=== PATIENT | male | born 1945 | race Caucasian/White ===

== ENCOUNTER 2018-07-09 21:32 | Observation (INO) | payer MEDICARE ==
--- NOTE | 2018-07-09 22:32 | ED ---
General Adult HPI - General Chief complaint: Abdominal Pain Stated complaint: Clogged NG2 Time Seen by Provider: 07/09/18 21:35 Source: patient, EMS Mode of arrival: EMS Limitations: physical limitation - History of Present Illness Initial comments: This patient is a 73-year-old man who was sent here from the longterm because his Dobbhoff tube would not pass medication tonight. Patient states that the tube has been present for number of months and he is not entirely certain when it stopped passing medications. Patient denies any other complain ts related to this. -: unknown Severity scale (1-10): 0 Improves with: none Worsens with: none Associated Symptoms: denies other symptoms Treatments Prior to Arrival: none - Related Data Home Medications Medication Instructions Recorded Confirmed Naproxen Sodium [Aleve] 220 mg PO Q12HR PRN 12/25/13 12/25/13 Previous Rx's Medication Instructions Recorded Cyclobenzaprine [Flexeril] 10 mg PO TID #10 tab 12/26/13 predniSONE 50 mg PO DAILY #5 tab 12/26/13 Allergies Allergy/AdvReac Type Severity Reaction Status Date / Time No Known Allergies Allergy Verified 12/25/13 22:55 Review of Systems ROS Statement: Those systems with pertinent positive or pertinent negative responses have been documented in the HPI. ROS Other: All systems not noted in ROS Statement are negative. Respiratory: Denies: cough, dyspnea Cardiovascular: Denies: chest pain Gastrointestinal: Denies: abdominal pain, vomiting, diarrhea Past Medical History Past Medical History: No Reported History History of Any Multi-Drug Resistant Organisms: None Reported Past Surgical History: No Surgical Hx Reported Past Psychological History: No Psychological Hx Reported Smoking Status: Current every day smoker Past Alcohol Use History: Occasional Past Drug Use History: None Reported General Exam Limitations: physical limitation General appearance: alert, in no apparent distress Head exam: Present: atraumatic, normocephalic ENT exam: Present: normal oropharynx, other (There is a Dobbhoff tube in the right naris with bridle present) Respiratory exam: Present: normal lung sounds bilaterally Cardiovascular Exam: Present: regular rate, normal rhythm, normal heart sounds GI/Abdominal exam: Present: soft. Absent: tenderness Neurological exam: Present: alert Skin exam: Present: warm, dry, intact, normal color. Absent: rash Course Vital Signs 07/09/18 07/09/18 21:37 23:29 Temperature 97.5 F L Pulse Rate 100 91 Respiratory 14 16 Rate Blood Pressure 152/100 167/100 O2 Sat by Pulse 95 97 Oximetry Disposition Clinical Impression: Feeding tube obstruction Disposition: ADMITTED IP TO THIS HOSP Condition: Fair Is patient prescribed a controlled substance at d/c from ED?: No Referrals: Tigre Reed DO [Primary Care Provider] - 1-2 days
[2018-07-10] MEDS ORDERED: NALOXONE 0.4 MG/ML 1 ML VIAL IV PRN (01:08)
[2018-07-10] MEDS ORDERED: LABETALOL SYRINGE 5 MG/ML IVP STA (01:59)
[2018-07-10] MEDS: SODIUM CHLORIDE 0.9% 1,000 ML IV SCH ×2 (02:35→15:53)
[2018-07-10] MEDS: HEPARIN SODIUM,PORCINE 5,000 UNIT/ML 1 ML VIAL SQ SCH ×2 (08:29→15:53)
[2018-07-10 11:06] VITALS: BMI 20.5
[2018-07-10] MEDS ORDERED: LIDOCAINE 1% INJ 10MG/ML (20 ML MDV) ONE (11:14)
[2018-07-10] MEDS ORDERED: PROPOFOL 10 MG/ML 20 ML VIAL IV ONE (11:14)
[2018-07-10] MEDS ORDERED: IV FLUID CONTINUATION 1,000 ML IV ONE (11:18)
--- NOTE | 2018-07-10 11:19 | P.GSHP ---
History of Present Illness H&P Date: 07/10/18 Chief Complaint: Malnutrition This a 73-year-old male who's had issues with dysphagia and malnutrition. Patient's previous aortic stent graft. He's had a Dobbhoff tube feed for several months. His Dobbhoff has become occluded. He is admitted for gastrostomy tube placement. Past Medical History Past Medical History: COPD, GERD/Reflux, Hyperlipidemia, Hypertension Additional Past Medical History / Comment(s): Neuromuscular dysfunction of bladder, iron deficiency anemia, neurogenic bladder, pressure ulcers, dissection of thoracic aorta History of Any Multi-Drug Resistant Organisms: None Reported Past Surgical History: No Surgical Hx Reported Additional Past Surgical History / Comment(s): May 2018 thoracic aorta repair at [facility] Past Anesthesia/Blood Transfusion Reactions: No Reported Reaction Past Psychological History: No Psychological Hx Reported Smoking Status: Former smoker Past Alcohol Use History: Occasional Past Drug Use History: None Reported Medications and Allergies Home Medications Medication Instructions Recorded Confirmed Type Acetaminophen [Tylenol 8 Hour] 650 mg NG-TUBE Q6HR PRN MDD 3000mg 07/10/18 07/10/18 History Ascorbic Acid [Vitamin C] 500 mg NG-TUBE DAILY 07/10/18 07/10/18 History Aspirin 81 mg NG-TUBE DAILY 07/10/18 07/10/18 History Cholestyramine (with Sugar) 4 gm NG-TUBE DAILY 07/10/18 07/10/18 History [Cholestyramine Packet] Esomeprazole Magnesium 20 mg NG-TUBE DAILY 07/10/18 07/10/18 History Ferrous Sulfate Oral Elixir 330 mg NG-TUBE DAILY 07/10/18 07/10/18 History [Feosol Liquid] INSULIN LISPRO (humaLOG) [humaLOG] See Protocol SQ ACHS 07/10/18 07/10/18 History Ipratropium/Albuterol Sulfate 1 puff INHALATION RT-TID 07/10/18 07/10/18 History [Combivent Respimat Inhaler] Loperamide HCl [Imodium] 4 mg NG-TUBE Q12HR 07/10/18 07/10/18 History Midodrine HCl [ProAmatine] 10 mg NG-TUBE Q12HR 07/10/18 07/10/18 History Multivitamins, Thera [Multivitamin 1 tab PO DAILY 07/10/18 07/10/18 History (formulary)] Warfarin Sodium 10 mg NG-TUBE SUMOTUSA 07/10/18 07/10/18 History Warfarin Sodium 12.5 mg NG-TUBE WETHFR 07/10/18 07/10/18 History Allergies Allergy/AdvReac Type Severity Reaction Status Date / Time No Known Allergies Allergy Verified 07/10/18 09:22 Surgical - Exam Vital Signs Temp Pulse Resp BP Pulse Ox 97.5 F L 100 14 152/100 95 07/09/18 21:37 07/09/18 21:37 07/09/18 21:37 07/09/18 21:37 07/09/18 21:37 - General well developed, no distress, cachectic, chronically ill - Eyes PERRL - ENT normal pinna - Neck no masses - Respiratory normal expansion - Cardiovascular Rhythm: regular - Abdomen Abdomen: soft, non tender Assessment and Plan Assessment: Protein calorie malnutrition. We'll place PEG tube today.
[2018-07-11] MEDS: HEPARIN SODIUM,PORCINE 5,000 UNIT/ML 1 ML VIAL SQ SCH ×3 (00:14→17:06)
--- NOTE | 2018-07-11 01:46 | CONS ---
CONSULTATION DATE OF CONSULTATION: July 10, 2018. REASON FOR CONSULTATION: Medical management requested by Dr. Recio. CONSULTATION: This is a 73-year-old patient of Dr. Reed. Most of the history is obtained by the at the bedside. The patient was at [facility] where he had a aortic replacement done and since then the patient has got a Dobhoff tube. The patient has been at rehab and the COUNT INCLUDES THE [facility]. The patient's Dobhoff stopped functioning and patient admitted by Dr. Recio for replacement of the same. Earlier today, the patient did get the Dobhoff tube replaced. I did see the patient earlier. According to the , the patient is able to do some therapy, though weak and tired. The patient occasionally does get confused. Otherwise patient's chronic stable medical conditions include COPD, GERD, hyperlipidemia, hypertension, neuromuscular bladder dysfunction. The patient apparently had dissection of the aorta. The patient is sitting up on a chair. Most of the history is obtained by the at the bedside. REVIEW OF SYSTEMS: Difficult to obtain. CONSTITUTIONAL: Weak tired. HEENT none. RESPIRATORY: None. CARDIOVASCULAR: None. GASTROINTESTINAL: Has a Dobhoff tube in place. GENITOURINARY: Incontinence. MUSCULOSKELETAL: Some pain in the joints. DERMATOLOGICAL: None. HEMATOLOGICAL: None. LYMPHATICS: None. PSYCHIATRY: Slightly forgetful. NEUROLOGICAL: Neurogenic bladder. PAST MEDICAL HISTORY: COPD, GERD, hyperlipidemia, hypertension, neurogenic bladder, iron deficiency anemia, pressure ulcer, aortic dissection. PAST SURGICAL HISTORY: Past surgical repair, a thoracic aorta repair at [facility] in May of this year. SOCIAL HISTORY: . Currently lives in the COUNT INCLUDES THE [facility]. Did smoke in the past. Alcohol occasionally. FAMILY HISTORY: Reviewed, noncontributory to the presentation. HOME MEDICATIONS: 1. Coumadin 12.5 mg Tuesday, , Tuesday, 10 mg on Tuesday, Tuesday, Tuesday, Tuesday. 2. Multivitamin 1 tablet p.o. daily. 3. Midodrine 10 mg q.12. 4. Imodium 4 mg q.12. 5. Combivent 1 puff t.i.d. 6. Humalog per scale. 7. 20 mg NG tube daily. 8. Cholestyramine 4 g NG tube daily. 9. Aspirin 81 mg daily. 10.Vitamin C 500 mg daily. 11.Tylenol 8 650 mg NG tube q.6h p.r.n. ALLERGIES: None. PHYSICAL EXAMINATION: VITAL SIGNS: Temperature 97.8, pulse 98, respiratory rate 16, blood pressure 102/73, pulse 100 percent room air. GENERAL APPEARANCE: Thin build. Sitting up. Awake. EYES: Pupils equal. Conjunctivae pale HEENT: External appearance of nose and ears normal. Dobhoff tube in the nose. NECK: JVD unable to assess. Mass not palpable. RESPIRATORY: Effort normal. LUNGS: Fair air entry. CARDIOVASCULAR: First and second sounds normal. No edema. ABDOMEN: Soft, nontender. Liver and spleen not palpable. Patient is wearing a diaper. PSYCHIATRY: Patient is able to answer some simple questions. NEUROLOGICAL: Pupils equal. No facial asymmetry. Moving all 4 limbs. INVESTIGATIONS: No blood work. ASSESSMENT: 1. Malfunctioning Dobhoff tube that was to be replaced later today. 2. Chronic obstructive pulmonary disease. 3. Gastroesophageal reflux disease. 4. Hyperlipidemia. 5. Essential hypertension. 6. Neurogenic bladder. 7. History of thoracic aortic dissection with replacement. PLAN: Plan patient's Dobhoff tube was in place later this afternoon. INR will be checked in the morning. If the INR is subtherapeutic, then we may have to cover with Lovenox. Other medications to be resumed when okay with Dr. Recio and feeding to be started. The patient was due to have a speech evaluation done today. We will get this done tomorrow. Discussed with Dr. Recio and thank you Dr. Recio Copy to Dr. Reed. MMPAO / SUREKHAN: [id number] /
[2018-07-11] MEDS: SODIUM CHLORIDE 0.9% 1,000 ML IV SCH ×2 (03:47→16:45)
[2018-07-11 07:59] LABS: Basophils % (A) 0 %; Eosinophils # (A) 0.1 k/uL (0-0.7); Eosinophils % (A) 1 %; HCT 33.8 % (39.0-53.0); HGB 11.2 gm/dL (13.0-17.5); Hypochromasia Slight; Lymphocytes # (A) 1.7 k/uL (1.0-4.8); Lymphocytes % (A) 11 %; MCH 29.5 pg (25.0-35.0); MCHC 33.1 g/dL (31.0-37.0); Monocytes # (A) 0.7 k/uL (0-1.0); Monocytes % (A) 5 %; Neutrophils % (A) 82 %; Platelet Count 193 k/uL (150-450); RDW 15.4 % (11.5-15.5); WBC 14.7 k/uL (3.8-10.6)
[2018-07-11 08:04] LABS: INR 1.8 (<1.2); Prothrombin Time 17.8 sec (9.0-12.0)
[2018-07-11 08:13] LABS: Anion Gap 6 mmol/L; Blood Urea Nitrogen 28 mg/dL (9-20); Calcium 9.1 mg/dL (8.4-10.2); Carbon Dioxide 27 mmol/L (22-30); Chloride 108 mmol/L (98-107); Glucose 85 mg/dL (74-99); Potassium 4.1 mmol/L (3.5-5.1); Sodium 141 mmol/L (137-145)
--- NOTE | 2018-07-11 13:38 | P.PN ---
Subjective Progress Note Date: 07/11/18 CHIEF COMPLAINT: Dobbhoff malfunction HISTORY OF PRESENT ILLNESS: Patient seen and examined at the bedside. Patient had PEG tube placed yesterday. Patient reports abdominal pain is tolerable. Denies nausea or vomiting. PHYSICAL EXAM: VITAL SIGNS: Reviewed. GENERAL: Well-developed in no acute distress. HEENT: No sclera icterus. Extraocular movements grossly intact. Moist buccal mucosa. Head is atraumatic, normocephalic. ABDOMEN: Soft. Nondistended. Nontender. PEG tube with bloody drainage. NEUROLOGIC: Alert and oriented. Cranial nerves II through XII grossly intact. ASSESSMENT: 1. Protein calorie malnutrition 2. History of Dobbhoff insertion and occlusion 3. Status post PEG tube placement PLAN: 1. May begin tube feedings tonight. 2. Medications must be crushed and dissolved completely before administering through PEG tube Nurse practitioner note has been reviewed by physician. Signing provider agrees with the documented findings, assessment, and plan of care. Objective - Vital Signs Vital signs: Vital Signs Temp 98.4 F 07/11/18 11:51 Pulse 55 L 07/11/18 11:51 Resp 18 07/11/18 11:51 BP 107/75 07/11/18 11:51 Pulse Ox 98 07/11/18 11:51 Intake & Output 07/10/18 07/11/18 07/11/18 18:59 06:59 18:59 Intake Total 200 960 Balance 200 960 Weight 61.235 kg Intake: IV 200 Intake, IV Titration 960 Amount Sodium Chloride 0.9% 1, 960 000 ml @ 80 mls/hr IV . [id number] [facility] Rx#:[id number] Other: Voiding Method Diaper Diaper # Voids 1 3 - Labs CBC & Chem 7: 07/11/18 07:00 07/11/18 07:00 Labs: Abnormal Lab Results - Last 24 Hours (Table) 07/11/18 07/11/18 07/11/18 Range/Units 07:00 07:00 07:00 WBC 14.7 H (3.8-10.6) k/uL RBC 3.80 L (4.30-5.90) m/uL Hgb 11.2 L (13.0-17.5) gm/dL Hct 33.8 L (39.0-53.0) % Neutrophils # 12.0 H (1.3-7.7) k/uL PT 17.8 H (9.0-12.0) sec INR 1.8 H (<1.2) Chloride 108 H (98-107) mmol/L BUN 28 H (9-20) mg/dL
[2018-07-11] MEDS ORDERED: ACETAMINOPHEN TAB 325 MG TAB NG-TUBE PRN (15:36)
[2018-07-11] MEDS: ASPIRIN 81 MG NG-TUBE SCH (17:06)
[2018-07-11] MEDS: MULTIVITAMINS, THERA 1 EACH TAB PO SCH (17:06)
[2018-07-11] MEDS: PANTOPRAZOLE SODIUM 40 MG GRANULE PKT NG-TUBE SCH (17:07)
[2018-07-11] MEDS: MIDODRINE 5 MG TAB NG-TUBE SCH (17:08)
[2018-07-11 18:00] LABS: Glucose,Whole Blood 89 mg/dL (75-99)
[2018-07-11] MEDS ORDERED: WARFARIN 10 MG TAB NG-TUBE SCH (18:00)
[2018-07-11] MEDS: INSULIN ASPART (NovoLOG) 100 UNIT/ML VIAL SQ SCH ×2 (19:10→21:37)
[2018-07-11] MEDS ORDERED: IPRATROPIUM-ALBUTEROL 3 ML NEB INHALATION SCH (20:00)
[2018-07-11 20:47] LABS: Glucose,Whole Blood 112 mg/dL (75-99)
[2018-07-11] MEDS ORDERED: CHOLESTYRAMINE (WITH SUGAR) 4 GM PACKET NG-TUBE SCH (21:00)
--- NOTE | 2018-07-12 01:29 | PN ---
PROGRESS NOTE PRESENTING COMPLAINT: Malfunctioning Dobbhoff. INTERVAL HISTORY: Patient was admitted with malfunctioning Dobbhoff tube and a PEG tube placed yesterday. Doing better. Lying in bed. No pain. Seen by speech today who will do modified barium swallow tomorrow. The patient's medications were ordered through the PEG tube. REVIEW OF SYSTEMS: Done for constitutional, cardiovascular, GI, pulmonary and relevant findings as above. CURRENT MEDICATIONS: Reviewed that include Coumadin. PHYSICAL EXAMINATION: VITAL SIGNS: Temperature 98.4, pulse 55, respiratory 18, blood pressure 107/75, pulse 98% on room air. GENERAL APPEARANCE: Lying in bed, awake. EYES: Pupils equal. Conjunctivae normal. NECK: JVD not raised. Mass not palpable. RESPIRATORY: Effort normal. LUNGS: Clear. CARDIOVASCULAR: First and second sounds normal. No edema. ABDOMEN: Soft, nontender. Liver and spleen not palpable. PEG tube in place. PSYCHIATRY: Awake, answering simple questions. INVESTIGATIONS: White count 14.7, hemoglobin 11.2, INR 1.8, potassium 4.1, BUN 28, creatinine 0.82. ASSESSMENT: 1. Malfunctioning Dobbhoff tube. That is the patient has a new PEG tube. 2. Chronic obstructive pulmonary disease. 3. Gastroesophageal reflux disease. 4. Hyperlipidemia. 5. Essential hypertension. 6. Neurogenic bladder. 7. History of thoracic aortic dissection with repair. PLAN: PEG tube feeding has been started. Coumadin has been resumed. The patient will have a speech evaluation, modified barium swallow tomorrow morning. MMODL / IJN: [id number] /
[2018-07-12] MEDS: HEPARIN SODIUM,PORCINE 5,000 UNIT/ML 1 ML VIAL SQ SCH ×2 (01:54→07:47)
[2018-07-12] MEDS: SODIUM CHLORIDE 0.9% 1,000 ML IV SCH (06:27)
[2018-07-12 06:55] LABS: Glucose,Whole Blood 171 mg/dL (75-99)
[2018-07-12] MEDS: MIDODRINE 5 MG TAB NG-TUBE SCH (07:03)
[2018-07-12] MEDS: MULTIVITAMINS, THERA 1 EACH TAB PO SCH (07:47)
[2018-07-12] MEDS: PANTOPRAZOLE SODIUM 40 MG GRANULE PKT NG-TUBE SCH (07:47)
[2018-07-12] MEDS: ASPIRIN 81 MG NG-TUBE SCH (07:47)
[2018-07-12] MEDS: INSULIN ASPART (NovoLOG) 100 UNIT/ML VIAL SQ SCH ×2 (07:48→12:14)
[2018-07-12] MEDS ORDERED: FERROUS SULFATE ORAL ELIXIR 300 MG/5 ML CUP NG-TUBE SCH (09:00)
[2018-07-12] MEDS ORDERED: ASCORBIC ACID 500 MG TAB NG-TUBE SCH (09:00)
[2018-07-12 11:15] LABS: Glucose,Whole Blood 152 mg/dL (75-99)
[2018-07-12 11:51] VITALS: BP 91/67; PULSE 91; RESP 17; TEMP 97.6
--- NOTE | 2018-07-12 12:06 | FL ---
EXAMINATION TYPE: FL barium swallow w video DATE OF EXAM: 07/12/2018 MODIFIED SWALLOW / DEGLUTITION STUDY CLINICAL HISTORY: Dysphagia. Rule out aspiration. TECHNIQUE: Deglutition study is performed utilizing thin liquid barium, honey and nectar thick liqui d barium, barium thick applesauce, and barium coated cracker. A total of 3 minutes 2 seconds of fluor oscopic time was utilized during procedure. 0 spot images are saved to PACS. COMPARISON: None. FINDINGS: The oral and pharyngeal phases show satisfactory initiation and propagation with all modali ties tested. Satisfactory mastication is seen with solid modalities tested. There is small degree of deep penetration with thin liquid barium and nectar thick liquid barium which does not initiate coug h reflex. Patient is able to clear contrast with coughing. This persisted despite chin tuck and forc eful swallowing with thin liquid barium. Other more viscous modalities show no penetration or aspirat ion . Mild to moderate pharyngeal residue was appreciated with less viscous modalities. IMPRESSION: Small degree of deep penetration with thin liquid barium and nectar thick liquid barium. Please refer to speech therapist notes for further details if necessary.
--- NOTE | 2018-07-12 12:08 | P.DS ---
Providers Date of admission: 07/10/18 01:13 Expected date of discharge: 07/12/18 Attending physician: Duran Recio Consults: 07/10/18 01:10 Consult Physician Routine Consulting Provider: Miguel Elias Consult Reason/Comments: medical management Do you want consulting provider notified?: Yes Primary care physician: [facility] Course: 73-year-old male who presented to the emergency room due to a clogged Dobbhoff tube. Patient underwent PEG tube insertion and removal of Dobbhoff tube by Dr. Recio. Tube feedings have been restarted, currently at goal rate and patient is tolerating well. Patient is to have a modified barium swallow performed today and then he may be discharged back to [facility]. Please see EMR for further hospital course details. DISCHARGE DIAGNOSIS: 1. Malfunctioning Dobbhoff tube, status post PEG tube insertion Nurse practitioner note has been reviewed by physician. Signing provider agrees with the documented findings, assessment, and plan of care. Patient Condition at Discharge: Stable Plan - Discharge Summary Discharge Rx Participant: No New Discharge Prescriptions: No Action Acetaminophen [Tylenol 8 Hour] 650 mg NG-TUBE Q6HR PRN MDD 3000mg PRN Reason: Pain Ascorbic Acid [Vitamin C] 500 mg NG-TUBE DAILY Aspirin 81 mg NG-TUBE DAILY Cholestyramine (with Sugar) [Cholestyramine Packet] 4 gm NG-TUBE DAILY Esomeprazole Magnesium 20 mg NG-TUBE DAILY Ferrous Sulfate Oral Elixir [Feosol Liquid] 330 mg NG-TUBE DAILY INSULIN LISPRO (humaLOG) [humaLOG] See Protocol SQ ACHS Ipratropium/Albuterol Sulfate [Combivent Respimat Inhaler] 1 puff INHALATION RT-TID Loperamide HCl [Imodium] 4 mg NG-TUBE Q12HR Midodrine HCl [ProAmatine] 10 mg NG-TUBE Q12HR Warfarin Sodium 10 mg NG-TUBE SUMOTUSA Warfarin Sodium 12.5 mg NG-TUBE WETHFR Multivitamins, Thera [Multivitamin (formulary)] 1 tab PO DAILY Discharge Medication List Acetaminophen [Tylenol 8 Hour] 650 mg NG-TUBE Q6HR PRN MDD 3000mg 07/10/18 [History] Ascorbic Acid [Vitamin C] 500 mg NG-TUBE DAILY 07/10/18 [History] Aspirin 81 mg NG-TUBE DAILY 07/10/18 [History] Cholestyramine (with Sugar) [Cholestyramine Packet] 4 gm NG-TUBE DAILY 07/10/18 [History] Esomeprazole Magnesium 20 mg NG-TUBE DAILY 07/10/18 [History] Ferrous Sulfate Oral Elixir [Feosol Liquid] 330 mg NG-TUBE DAILY 07/10/18 [History] INSULIN LISPRO (humaLOG) [humaLOG] See Protocol SQ ACHS 07/10/18 [History] Ipratropium/Albuterol Sulfate [Combivent Respimat Inhaler] 1 puff INHALATION RT- TID 07/10/18 [History] Loperamide HCl [Imodium] 4 mg NG-TUBE Q12HR 07/10/18 [History] Midodrine HCl [ProAmatine] 10 mg NG-TUBE Q12HR 07/10/18 [History] Multivitamins, Thera [Multivitamin (formulary)] 1 tab PO DAILY 07/10/18 [History] Warfarin Sodium 10 mg NG-TUBE SUMOTUSA 07/10/18 [History] Warfarin Sodium 12.5 mg NG-TUBE WETHFR 07/10/18 [History] Follow up Appointment(s)/Referral(s): Tigre Reed DO [Primary Care Provider] - 1-2 days Duran Recio MD [STAFF PHYSICIAN] - 1 Week
[2018-07-12] MEDS ORDERED: WARFARIN 5 MG TAB NG-TUBE SCH (18:00)
--- NOTE | 2018-07-13 06:55 | PN ---
PROGRESS NOTE DATE OF SERVICE: 07/12/2018 PRESENTING COMPLAINT: PEG tube. INTERVAL HISTORY: Patient admitted with malfunctioning Dobhoff tube that was removed and a PEG tube was placed. Feeding was started. The patient was seen by speech therapy earlier today and they did suggest a modified diet. Patient's medications can be switched to by mouth. The patient is sitting up rather comfortable, no pain. REVIEW OF SYSTEMS: Done for constitutional, cardiovascular, GI, pulmonary; relevant findings as above. MEDICATIONS: Current medications are reviewed. PHYSICAL EXAMINATION: On examination, temperature 97.6, pulse 91, respirations 17, blood pressure 91/67, pulse ox 97% on room air. GENERAL APPEARANCE: Sitting up, comfortable. EYES: Pupils equal. Conjunctivae normal. NECK: JVD not raised. Mass not palpable. RESPIRATORY: Effort normal. Lungs are clear. CARDIOVASCULAR: First and second sounds normal. No edema. ABDOMEN: Soft, nontender. Liver and spleen not palpable. PEG tube in place. PSYCHIATRY: Awake, answering questions. INVESTIGATIONS: Accu-Cheks are noted. ASSESSMENT: 1. Malfunctioning Dobhoff tube. Patient now has a new PEG tube. 2. Chronic obstructive pulmonary disease. 3. Gastroesophageal reflux disease. 4. Hyperlipidemia. 5. Essential hypertension. 6. Neurogenic bladder. 7. History of thoracic aortic dissection with repair. PLAN: Patient is able to start a diet as recommended by speech and also take pills by mouth. Stable to go back to the F. Thank you Dr. Recio. MMSHAKAL / SUREKHAN: [id number] /
--- NOTE | 2018-07-13 06:55 | PN ---
PROGRESS NOTE DATE OF SERVICE: 07/11/2018 My note dictated on 07/11/2018 at 2255, the date of service is 07/11/2018. MMODL / IJN: [id number] /
--- NOTE | 2018-08-04 14:09 | P.OP ---
Date of Procedure: 07/10/18 Preoperative Diagnosis: malnutrition Postoperative Diagnosis: malnutrition Procedure(s) Performed: PEG tube placement Anesthesia: MAC Surgeon: Duran Recio Pathology: none sent Condition: stable Disposition: PACU Description of Procedure: the patient was placed on the endoscopy table in the lateral position. He received IV sedation. The gastroscope placed in the oropharynx and passed in the esophagus and into the stomach. There was no evidence of any gastric outlet obstruction. The stomach was insufflated with air and then a suitable light reflex was seen on the abdominal wall. The skin was prepped and draped in the usual sterile fashion. The skin was anesthetized with 1% local Xylocaine. A skin incision was made with 11 blade. The needle was placed into the stomach under direct visualization. The needle was snared and then the wire was placed through the needle. The wire was then snared and brought out through the oropharynx. The PEG tube was placed over top of the wire brought down into the stomach. The PEG tube was secured at the 3 cm stephy with a one piece bolster. Patient Torchia well and was sent to recovery in stable condition.
== END 2018-07-12 15:55 ==
LOC: EC 21:32 → 3NMEDONC 07-10 01:13 → INTOOBSV 07-10 01:13
PROVIDERS: ADMIT Surgery; ATTEND Surgery
DX: T85.518A Breakdown (mechanical) of other gastrointestinal prosthetic devices, implants and grafts, initial encounter (principal); Y73.1 Therapeutic (nonsurgical) and rehabilitative gastroenterology and urology devices associated with adverse incidents; E46 Unspecified protein-calorie malnutrition; D50.9 Iron deficiency anemia, unspecified; Z68.20 Body mass index [BMI] 20.0-20.9, adult; E78.5 Hyperlipidemia, unspecified; I10 Essential (primary) hypertension; N31.9 Neuromuscular dysfunction of bladder, unspecified; K21.9 Gastro-esophageal reflux disease without esophagitis; R13.10 Dysphagia, unspecified; J44.9 Chronic obstructive pulmonary disease, unspecified; Z79.01 Long term (current) use of anticoagulants; Z79.82 Long term (current) use of aspirin; Z79.899 Other long term (current) drug therapy; Z98.890 Other specified postprocedural states; Z86.79 Personal history of other diseases of the circulatory system; Z87.891 Personal history of nicotine dependence
CPT/HCPCS: 96372 ×3; 99284; 97162; 97535; 97166; 92610; 92526; 92611; 80048; 85025; 85610; 74230; 43246; G0378 ×4; J1644 ×3; J2001; J2704; B4087; 96360; 96361

== ENCOUNTER 2018-07-28 17:51 | Inpatient (IN) | payer MEDICARE ==
[2018-07-28] MEDS ORDERED: RX INFO: IV CONTRAST WAS GIVEN 1 EACH MISC MISCELLANE PRN (18:34)
[2018-07-28] MEDS ORDERED: PHYTONADIONE ORAL 5 MG/5 ML ORAL.SYRG PO STA (18:36)
--- NOTE | 2018-07-28 18:39 | ED ---
General Adult HPI - General Chief complaint: Recheck/Abnormal Lab/Rx Stated complaint: abnormal labs Time Seen by Provider: 07/28/18 17:54 Source: patient, EMS Mode of arrival: EMS Limitations: no limitations - History of Present Illness Initial comments: Dictation was produced using [employer] dictation software. please excuse any grammatical, word or spelling errors. Chief Complaint: 73-year-old male past medical history of aortic disease status post surgical intervention, coagulopathy presents with supratherapeutic INR. History of Present Illness: Patient is a 73-year-old male is transferred for supratherapeutic INR. Patient was brought in by EMS. Patient is currently admitted to [place]. Patient has no complaints at this time however he does report that he's been having some episodes of hemoptysis that had been ongoing only today. Patient has no pain complaints at this time. Denies any black tarry stools. No nausea or vomiting. She denies any extremity pain or lower back pain. Patient has history of thoracic aortic repair at [facility]. The ROS documented in this emergency department record has been reviewed and confirmed by me. Those systems with pertinent positive or negative responses have been documented in the HPI. All other systems are other negative and/or noncontributory. PHYSICAL EXAM: General Impression: Alert and oriented x3, not in acute distress HEENT: Normocephalic atraumatic, extra-ocular movements intact, pupils equal and reactive to light bilaterally, mucous membranes moist. Cardiovascular: Heart regular rate and rhythm, S1&S2 audible, no murmurs, rubs or gallops Chest: Mild rhonchi to bilateral lung brown Abdomen: Bowel sounds present, abdomen soft, non-tender, non-distended, no organomegaly Musculoskeletal: Pulses present and equal in all extremities, no peripheral edema Motor: no focal deficits noted Neurological: CN II-XII grossly intact, no focal motor or sensory deficits noted Skin: Intact with no visualized rashes Psych: Normal affect and mood ED course: 73-year-old male presents with therapeutic INR. This point there is no signs of life-threatening bleeding at this time. Upon arrival shows heart rate of 104, rest of vital signs within acceptable limits. Patient is otherwise well-appearing. Laboratory evaluation is obtained. CBC shows mild leukocytosis of 11.7. Normal platelets. Coag panel shows INR greater than 10. Potassium is 5.9. Rest of metabolic panel is unremarkable. Patient did have some hemoptysis. Is concerned that there might be bleeding intrathoracic bleed. CT with contrast shows bilateral pleural effusions with right middle lobe and right lower lobe infiltrates. Patient has any constitutional symptoms. At this point there is no signs to suggest major bleeding. Patient given treatment for hyperkalemia with dextrose, insulin, albuterol and Lasix. He is given oral vitamin K. Patient be admitted to Dr. Elias he requests cardiothoracic be consult it for his existing thoracic aneurysm repair. EKG interpretation: Ventricular rate 97, normal sinus rhythm, 150, care is 80, QTc 452. No old EKG for comparison. Patient has nonspecific T-wave changes seen in the precordial leads. - Related Data Home Medications Medication Instructions Recorded Confirmed INSULIN LISPRO (humaLOG) [humaLOG] See Protocol SQ ACHS 07/10/18 07/28/18 Ipratropium/Albuterol Sulfate 1 puff INHALATION RT-TID 07/10/18 07/28/18 [Combivent Respimat Inhaler] Multivitamins, Thera [Multivitamin 1 tab PO DAILY 07/28/18 07/28/18 (formulary)] Previous Rx's Medication Instructions Recorded Acetaminophen [Tylenol 8 Hour] 650 mg PO Q6HR PRN #0 MDD 3000mg 07/12/18 Ascorbic Acid [Vitamin C] 500 mg PO DAILY #0 07/12/18 Aspirin 81 mg PO DAILY #0 07/12/18 Cholestyramine (with Sugar) 4 gm PO DAILY #0 07/12/18 [Cholestyramine Packet] Esomeprazole Magnesium 20 mg PO DAILY #0 07/12/18 Ferrous Sulfate Oral Elixir 330 mg PO DAILY #0 07/12/18 [Feosol Liquid] Loperamide HCl [Imodium] 4 mg PO Q12HR #0 07/12/18 Midodrine HCl [ProAmatine] 10 mg PO Q12HR #0 07/12/18 Warfarin Sodium 10 mg PO SUMOTUSA #0 07/12/18 Warfarin Sodium 12.5 mg PO WETHFR #0 07/12/18 Allergies Allergy/AdvReac Type Severity Reaction Status Date / Time No Known Allergies Allergy Verified 07/28/18 18:10 Review of Systems ROS Statement: Those systems with pertinent positive or pertinent negative responses have been documented in the HPI. ROS Other: All systems not noted in ROS Statement are negative. Past Medical History Past Medical History: COPD, GERD/Reflux, Hyperlipidemia, Hypertension Additional Past Medical History / Comment(s): Neuromuscular dysfunction of bladder, iron deficiency anemia, neurogenic bladder, pressure ulcers, dissection of thoracic aorta History of Any Multi-Drug Resistant Organisms: None Reported Past Surgical History: No Surgical Hx Reported Additional Past Surgical History / Comment(s): May 2018 thoracic aorta repair at [facility] Past Anesthesia/Blood Transfusion Reactions: No Reported Reaction Past Psychological History: No Psychological Hx Reported Smoking Status: Former smoker Past Alcohol Use History: Occasional Past Drug Use History: None Reported General Exam Limitations: no limitations Course Vital Signs 07/28/18 07/28/18 07/28/18 17:58 18:55 19:00 Temperature 98.1 F Pulse Rate 104 H 98 99 Respiratory 18 26 H 28 H Rate Blood Pressure 146/98 146/98 155/99 O2 Sat by Pulse 97 99 99 Oximetry 07/28/18 07/28/18 07/28/18 19:10 19:30 20:00 Temperature Pulse Rate 98 100 99 Respiratory 36 H 16 17 Rate Blood Pressure 161/104 161/104 155/102 O2 Sat by Pulse 100 99 98 Oximetry 07/28/18 07/28/18 20:01 20:30 Temperature Pulse Rate 100 102 H Respiratory 16 Rate Blood Pressure 144/98 O2 Sat by Pulse 100 Oximetry Medical Decision Making - Lab Data Result diagrams: 07/28/18 18:30 07/28/18 18:30 Lab Results 07/28/18 07/28/18 07/28/18 Range/Units 18:30 18:30 18:30 WBC 11.7 H (3.8-10.6) k/uL RBC 3.33 L (4.30-5.90) m/uL Hgb 9.8 L (13.0-17.5) gm/dL Hct 31.4 L (39.0-53.0) % MCV 94.3 (80.0-100.0) fL MCH 29.3 (25.0-35.0) pg MCHC 31.1 (31.0-37.0) g/dL RDW 16.8 H (11.5-15.5) % Plt Count 289 (150-450) k/uL Neutrophils % 72 % Lymphocytes % 18 % Monocytes % 5 % Eosinophils % 3 % Basophils % 0 % Neutrophils # 8.4 H (1.3-7.7) k/uL Lymphocytes # 2.1 (1.0-4.8) k/uL Monocytes # 0.6 (0-1.0) k/uL Eosinophils # 0.3 (0-0.7) k/uL Basophils # 0.1 (0-0.2) k/uL Hypochromasia Moderate Anisocytosis Slight PT >130.0 H (9.0-12.0) sec INR >10.0 H* (<1.2) APTT 52.5 H (22.0-30.0) sec Sodium 134 L (137-145) mmol/L Potassium 5.9 H (3.5-5.1) mmol/L Chloride 105 (98-107) mmol/L Carbon Dioxide 22 (22-30) mmol/L Anion Gap 7 mmol/L BUN 21 H (9-20) mg/dL Creatinine 0.86 (0.66-1.25) mg/dL Est GFR (CKD-EPI)AfAm >90 (>60 ml/min/1.73 sqM) Est GFR (CKD-EPI)NonAf 87 (>60 ml/min/1.73 sqM) Glucose 103 H (74-99) mg/dL Calcium 8.3 L (8.4-10.2) mg/dL Magnesium 1.7 (1.6-2.3) mg/dL Troponin I (0.000-0.034) ng/mL Blood Type Blood Type Recheck Antibody Screen Spec Expiration Date 07/28/18 07/28/18 Range/Units 18:30 19:21 WBC (3.8-10.6) k/uL RBC (4.30-5.90) m/uL Hgb (13.0-17.5) gm/dL Hct (39.0-53.0) % MCV (80.0-100.0) fL MCH (25.0-35.0) pg MCHC (31.0-37.0) g/dL RDW (11.5-15.5) % Plt Count (150-450) k/uL Neutrophils % % Lymphocytes % % Monocytes % % Eosinophils % % Basophils % % Neutrophils # (1.3-7.7) k/uL Lymphocytes # (1.0-4.8) k/uL Monocytes # (0-1.0) k/uL Eosinophils # (0-0.7) k/uL Basophils # (0-0.2) k/uL Hypochromasia Anisocytosis PT (9.0-12.0) sec INR (<1.2) APTT (22.0-30.0) sec Sodium (137-145) mmol/L Potassium (3.5-5.1) mmol/L Chloride (98-107) mmol/L Carbon Dioxide (22-30) mmol/L Anion Gap mmol/L BUN (9-20) mg/dL Creatinine (0.66-1.25) mg/dL Est GFR (CKD-EPI)AfAm (>60 ml/min/1.73 sqM) Est GFR (CKD-EPI)NonAf (>60 ml/min/1.73 sqM) Glucose (74-99) mg/dL Calcium (8.4-10.2) mg/dL Magnesium (1.6-2.3) mg/dL Troponin I <0.012 (0.000-0.034) ng/mL Blood Type O Positive Blood Type Recheck CABO Indicated Antibody Screen NEGATIVE Spec Expiration Date 07/31/20182320 Disposition Clinical Impression: Supratherapeutic INR Disposition: ADMITTED IP TO THIS HOSP Condition: Fair Referrals: Tigre Reed DO [Primary Care Provider] - 1-2 days Decision Time: 20:38
[2018-07-28 19:15] LABS: Anisocytosis Slight; Basophils # (A) 0.1 k/uL (0-0.2); Basophils % (A) 0 %; Eosinophils # (A) 0.3 k/uL (0-0.7); Eosinophils % (A) 3 %; HCT 31.4 % (39.0-53.0); HGB 9.8 gm/dL (13.0-17.5); Hypochromasia Moderate; Lymphocytes # (A) 2.1 k/uL (1.0-4.8); Lymphocytes % (A) 18 %; MCH 29.3 pg (25.0-35.0); MCHC 31.1 g/dL (31.0-37.0); MCV 94.3 fL (80.0-100.0); Mean Platelet Volume 8.5; Monocytes # (A) 0.6 k/uL (0-1.0); Monocytes % (A) 5 %; Neutrophils # (A) 8.4 k/uL (1.3-7.7); Neutrophils % (A) 72 %; Platelet Count 289 k/uL (150-450); RBC 3.33 m/uL (4.30-5.90); RDW 16.8 % (11.5-15.5); WBC 11.7 k/uL (3.8-10.6)
[2018-07-28 19:24] LABS: Anion Gap 7 mmol/L; Blood Urea Nitrogen 21 mg/dL (9-20); Calcium 8.3 mg/dL (8.4-10.2); Carbon Dioxide 22 mmol/L (22-30); Chloride 105 mmol/L (98-107); Glucose 103 mg/dL (74-99); Magnesium 1.7 mg/dL (1.6-2.3); Potassium 5.9 mmol/L (3.5-5.1); Sodium 134 mmol/L (137-145)
[2018-07-28 19:45] LABS: Partial Thromboplastin Time 52.5 sec (22.0-30.0); Prothrombin Time >130.0 sec (9.0-12.0)
[2018-07-28 19:47] LABS: INR >10.0 (<1.2)
[2018-07-28] MEDS ORDERED: INSULIN REGULAR 100 UNIT/ML VIAL IV ONE (19:48)
[2018-07-28] MEDS ORDERED: DEXTROSE 50% SYRINGE 50 ML IVP ONE (19:48)
[2018-07-28] MEDS ORDERED: FUROSEMIDE 10 MG/ML 4 ML VIAL IV STA (19:48)
[2018-07-28] MEDS ORDERED: ALBUTEROL NEBULIZED 2.5 MG/3 ML INHALATION STA (19:50)
--- NOTE | 2018-07-28 20:09 | CT ---
EXAMINATION TYPE: CT chest w con DATE OF EXAM: 07/28/2018 COMPARISON: 05/23/2013 HISTORY: Abnormal labs-elevated INR. Hx HTN, thoracic aortic repair May 2018 CT DLP: 246.8 mGycm Automated exposure control for dose reduction was used. CONTRAST: CT scan of the chest is performed with IV Contrast, patient injected with 100 mL of Isovue 300. . FINDINGS: There are bilateral pleural effusions. There is no pericardial effusion. There is no mediastinal meagan opathy. There is aortic stent noted at the descending thoracic aorta. There are no hilar masses. Ther e is descending aortic aneurysm that measures up to 5 cm in diameter. There is gastrostomy tube noted . There is normal contrast opacification of the pulmonary arteries. There are no filling defects. The re is reflux of contrast into the inferior vena cava that could relate to heart failure. There is some infiltrate in the right middle lobe and right lower lobe with atelectasis. There is coa rsening of interstitial markings. The bony thorax appears intact. There are sternal wires. IMPRESSION: Bilateral pleural effusions with right middle lobe and right lower lobe infiltrates. Pos sible congestive heart failure. There is a descending thoracic aortic aneurysm that is a change antoinette red to last exam. There is a stent in the descending aorta. Pleural fluid and pulmonary infiltrates a re change compared to old exam.
[2018-07-28] MEDS ORDERED: NALOXONE 0.4 MG/ML 1 ML VIAL IV PRN (20:38)
[2018-07-28] MEDS ORDERED: IPRATROPIUM-ALBUTEROL 3 ML NEB INHALATION PRN (22:25)
[2018-07-28] MEDS: MIDODRINE 5 MG TAB PO SCH (22:35)
[2018-07-28 22:40] LABS: Glucose,Whole Blood 79 mg/dL (75-99)
[2018-07-28] MEDS: SODIUM CHLORIDE 0.9% 1,000 ML IV SCH (23:11)
[2018-07-29] MEDS: PANTOPRAZOLE 40 MG TABLET PO SCH (06:43)
[2018-07-29] MEDS: IPRATROPIUM-ALBUTEROL 3 ML NEB INHALATION SCH ×3 (07:25→19:05)
[2018-07-29 07:40] LABS: Anisocytosis Slight; Basophils # (A) 0.1 k/uL (0-0.2); Basophils % (A) 1 %; Eosinophils # (A) 0.3 k/uL (0-0.7); Eosinophils % (A) 2 %; HCT 32.9 % (39.0-53.0); HGB 10.3 gm/dL (13.0-17.5); Hypochromasia Slight; Lymphocytes % (A) 17 %; MCH 29.5 pg (25.0-35.0); MCHC 31.4 g/dL (31.0-37.0); Mean Platelet Volume 7.9; Monocytes # (A) 0.7 k/uL (0-1.0); Monocytes % (A) 6 %; Neutrophils # (A) 8.2 k/uL (1.3-7.7); Neutrophils % (A) 72 %; Platelet Count 288 k/uL (150-450); RDW 16.9 % (11.5-15.5); WBC 11.3 k/uL (3.8-10.6)
[2018-07-29] MEDS ORDERED: IPRATROPIUM-ALBUTEROL 3 ML NEB INHALATION SCH (08:00)
[2018-07-29 08:04] LABS: Calcium 8.7 mg/dL (8.4-10.2); Potassium 4.2 mmol/L (3.5-5.1)
[2018-07-29 08:11] LABS: Prothrombin Time >130.0 sec (9.0-12.0)
[2018-07-29 08:13] LABS: INR >10.0 (<1.2)
[2018-07-29] MEDS ORDERED: PHYTONADIONE 5 MG in SODIUM CHLORIDE 0.9% 50 ML IVPB STA (08:37)
[2018-07-29] MEDS: MIDODRINE 5 MG TAB PO SCH ×2 (09:37→21:07)
--- NOTE | 2018-07-29 11:15 | P.GSCN ---
<All Cevallos - Last Filed: 07/29/18 10:35> History of Present Illness Consult date: 07/29/18 Reason for Consult: History of thoracic aneurysm. Requesting physician: Chema Oconnell History of present illness: This is 73-year-old gentleman who is followed by Dr. Tigre Reed on an outpatient basis. He is a past medical history significant for thoracic aortic aneurysm status post repair at the [facility] and May 2018, hypertension, hyperlipidemia, chronic obstructive pulmonary disease, gastroesophageal reflux disease, history of neuromuscular dysfunction of his bladder with episodes of incontinence, history of previous suicide attempt with his dialysis, history of nicotine dependence quit in May 2018, history of pressure ulcers, history of recent malnutrition and dysphagia status post gastrostomy feeding tube placement and iron deficiency anemia. The patient presented to the emergency department here at [facility] with a supratherapeutic INR. He status post thoracic aortic aneurysm repair which was completed at [facility] in May 2018. The patient denies any complaints of pain, shortness of breath, presyncope, syncope, nausea or vomiting. On presentation to the emergency department his initial lab work showed a WBC count of 11.7, Hgb 9.8, platelet count 289, PTT greater than 130, INR greater than 10, PTT 52.5, BUN 21, creatinine 0.86 and a troponin less than 0.012. Computed tomography scan of his chest was completed which demonstrated bilateral pleural effusions with right middle lobe and right lower lobe infiltrate. Descending thoracic aortic aneurysm stent graft in place. Due to his recent history of a aortic stent graft placement a consult was placed to cardiothoracic surgery for further treatment recommendations. Review of Systems A 14 point review of systems was completed and negative except as mentioned in the HPI. Past Medical History Past Medical History: COPD, Dialysis, GERD/Reflux, Hyperlipidemia, Hypertension Additional Past Medical History / Comment(s): Neuromuscular dysfunction of bladder, iron deficiency anemia, neurogenic bladder, pressure ulcers, dissection of thoracic aorta History of Any Multi-Drug Resistant Organisms: None Reported Past Surgical History: No Surgical Hx Reported Additional Past Surgical History / Comment(s): May 2018 thoracic aorta repair at [facility] Past Anesthesia/Blood Transfusion Reactions: No Reported Reaction Past Psychological History: No Psychological Hx Reported Smoking Status: Former smoker Past Alcohol Use History: Occasional Past Drug Use History: None Reported Medications and Allergies Home Medications Medication Instructions Recorded Confirmed Type INSULIN LISPRO (humaLOG) [humaLOG] See Protocol SQ ACHS 07/10/18 07/28/18 History Ipratropium/Albuterol Sulfate 1 puff INHALATION RT-TID 07/10/18 07/28/18 History [Combivent Respimat Inhaler] Acetaminophen [Tylenol 8 Hour] 650 mg PO Q6HR PRN #0 MDD 3000mg 07/12/18 07/28/18 Rx Ascorbic Acid [Vitamin C] 500 mg PO DAILY #0 07/12/18 07/28/18 Rx Aspirin 81 mg PO DAILY #0 07/12/18 07/28/18 Rx Cholestyramine (with Sugar) 4 gm PO DAILY #0 07/12/18 07/28/18 Rx [Cholestyramine Packet] Esomeprazole Magnesium 20 mg PO DAILY #0 07/12/18 07/28/18 Rx Ferrous Sulfate Oral Elixir 330 mg PO DAILY #0 07/12/18 07/28/18 Rx [Feosol Liquid] Loperamide HCl [Imodium] 4 mg PO Q12HR #0 07/12/18 07/28/18 Rx Midodrine HCl [ProAmatine] 10 mg PO Q12HR #0 07/12/18 07/28/18 Rx Warfarin Sodium 10 mg PO SUMOTUSA #0 07/12/18 07/28/18 Rx Warfarin Sodium 12.5 mg PO WETHFR #0 07/12/18 07/28/18 Rx Multivitamins, Thera [Multivitamin 1 tab PO DAILY 07/28/18 07/28/18 History (formulary)] Allergies Allergy/AdvReac Type Severity Reaction Status Date / Time No Known Allergies Allergy Verified 07/28/18 18:10 Surgical - Exam Vital Signs Temp Pulse Resp BP Pulse Ox 98.1 F 104 H 18 146/98 97 07/28/18 17:58 07/28/18 17:58 07/28/18 17:58 07/28/18 17:58 07/28/18 17:58 - General well developed, well nourished, no distress, no pain, chronically ill - Eyes PERRL, normal ocular movement - ENT normal pinna, normal nares, normal mucosa, no hearing loss, no congestion, poor penitentiary - Neck no masses, no bruits, trachea midline, no lymphadectomy, no venous distension - Respiratory Lung sounds essentially clear throughout, diminished at bilateral bases. Respirations are symmetrical and nonlabored. - Cardiovascular Regular rhythm and rate. S1 and S2 present, negative for S3, or gallop. Positive systolic murmur 3/6 heard best his left sternal border. - Abdomen Abdomen is soft, nontender and nondistended. Active bowel sounds. Abdominal quadrants. PEG tube in place to his left upper quadrant abdomen. - Genitourinary Deferred - Rectum Deferred - Integumentary no rash, no growths, no abnormal pigmentation - Neurologic normal coordination, normal sensation - Musculoskeletal Bedrest at this time - Psychiatric oriented to time, oriented to person, oriented to place, speech is normal, memory intact Results - Labs 07/29/18 07:24 07/29/18 07:24 Abnormal Lab Results - Last 24 Hours (Table) 07/28/18 07/28/18 07/28/18 Range/Units 18:30 18:30 18:30 WBC 11.7 H (3.8-10.6) k/uL RBC 3.33 L (4.30-5.90) m/uL Hgb 9.8 L (13.0-17.5) gm/dL Hct 31.4 L (39.0-53.0) % RDW 16.8 H (11.5-15.5) % Neutrophils # 8.4 H (1.3-7.7) k/uL PT >130.0 H (9.0-12.0) sec INR >10.0 H* (<1.2) APTT 52.5 H (22.0-30.0) sec Sodium 134 L (137-145) mmol/L Potassium 5.9 H (3.5-5.1) mmol/L BUN 21 H (9-20) mg/dL Glucose 103 H (74-99) mg/dL Calcium 8.3 L (8.4-10.2) mg/dL 07/29/18 07/29/18 07/29/18 Range/Units 07:24 07:24 07:24 WBC 11.3 H (3.8-10.6) k/uL RBC 3.50 L (4.30-5.90) m/uL Hgb 10.3 L (13.0-17.5) gm/dL Hct 32.9 L (39.0-53.0) % RDW 16.9 H (11.5-15.5) % Neutrophils # 8.2 H (1.3-7.7) k/uL PT >130.0 H (9.0-12.0) sec INR >10.0 H* (<1.2) APTT (22.0-30.0) sec Sodium (137-145) mmol/L Potassium (3.5-5.1) mmol/L BUN 24 H (9-20) mg/dL Glucose (74-99) mg/dL Calcium (8.4-10.2) mg/dL Diabetes panel 07/28/18 07/29/18 Range/Units 18:30 07:24 Sodium 134 L 137 (137-145) mmol/L Potassium 5.9 H 4.2 (3.5-5.1) mmol/L Chloride 105 103 (98-107) mmol/L Carbon Dioxide 22 27 (22-30) mmol/L BUN 21 H 24 H (9-20) mg/dL Creatinine 0.86 1.02 (0.66-1.25) mg/dL Glucose 103 H 80 (74-99) mg/dL Calcium 8.3 L 8.7 (8.4-10.2) mg/dL Calcium panel 07/28/18 07/29/18 Range/Units 18:30 07:24 Calcium 8.3 L 8.7 (8.4-10.2) mg/dL Pituitary panel 07/28/18 07/29/18 Range/Units 18:30 07:24 Sodium 134 L 137 (137-145) mmol/L Potassium 5.9 H 4.2 (3.5-5.1) mmol/L Chloride 105 103 (98-107) mmol/L Carbon Dioxide 22 27 (22-30) mmol/L BUN 21 H 24 H (9-20) mg/dL Creatinine 0.86 1.02 (0.66-1.25) mg/dL Glucose 103 H 80 (74-99) mg/dL Calcium 8.3 L 8.7 (8.4-10.2) mg/dL Adrenal panel 07/28/18 07/29/18 Range/Units 18:30 07:24 Sodium 134 L 137 (137-145) mmol/L Potassium 5.9 H 4.2 (3.5-5.1) mmol/L Chloride 105 103 (98-107) mmol/L Carbon Dioxide 22 27 (22-30) mmol/L BUN 21 H 24 H (9-20) mg/dL Creatinine 0.86 1.02 (0.66-1.25) mg/dL Glucose 103 H 80 (74-99) mg/dL Calcium 8.3 L 8.7 (8.4-10.2) mg/dL - Imaging CT scan - chest: report reviewed, image reviewed Assessment and Plan Assessment: 1. History of thoracic aortic aneurysm status post stent graft placement. 2. Supratheraputic INR Plan: Patient was seen and examined. Discharge diagnostics reviewed. No surgical intervention is warranted at this time. Any further surgical concerns please reconsult. Thank you for this consult and we look for to working with you in the care of this patient. Time with Patient: Greater than 30 <Parmjit Stewart - Last Filed: 07/29/18 11:17> Surgical - Exam Vital Signs Temp Pulse Resp BP Pulse Ox 98.1 F 104 H 18 146/98 97 07/28/18 17:58 07/28/18 17:58 07/28/18 17:58 07/28/18 17:58 07/28/18 17:58 Results - Labs 07/29/18 07:24 07/29/18 07:24 Abnormal Lab Results - Last 24 Hours (Table) 07/28/18 07/28/18 07/28/18 Range/Units 18:30 18:30 18:30 WBC 11.7 H (3.8-10.6) k/uL RBC 3.33 L (4.30-5.90) m/uL Hgb 9.8 L (13.0-17.5) gm/dL Hct 31.4 L (39.0-53.0) % RDW 16.8 H (11.5-15.5) % Neutrophils # 8.4 H (1.3-7.7) k/uL PT >130.0 H (9.0-12.0) sec INR >10.0 H* (<1.2) APTT 52.5 H (22.0-30.0) sec Sodium 134 L (137-145) mmol/L Potassium 5.9 H (3.5-5.1) mmol/L BUN 21 H (9-20) mg/dL Glucose 103 H (74-99) mg/dL Calcium 8.3 L (8.4-10.2) mg/dL 07/29/18 07/29/18 07/29/18 Range/Units 07:24 07:24 07:24 WBC 11.3 H (3.8-10.6) k/uL RBC 3.50 L (4.30-5.90) m/uL Hgb 10.3 L (13.0-17.5) gm/dL Hct 32.9 L (39.0-53.0) % RDW 16.9 H (11.5-15.5) % Neutrophils # 8.2 H (1.3-7.7) k/uL PT >130.0 H (9.0-12.0) sec INR >10.0 H* (<1.2) APTT (22.0-30.0) sec Sodium (137-145) mmol/L Potassium (3.5-5.1) mmol/L BUN 24 H (9-20) mg/dL Glucose (74-99) mg/dL Calcium (8.4-10.2) mg/dL Diabetes panel 07/28/18 07/29/18 Range/Units 18:30 07:24 Sodium 134 L 137 (137-145) mmol/L Potassium 5.9 H 4.2 (3.5-5.1) mmol/L Chloride 105 103 (98-107) mmol/L Carbon Dioxide 22 27 (22-30) mmol/L BUN 21 H 24 H (9-20) mg/dL Creatinine 0.86 1.02 (0.66-1.25) mg/dL Glucose 103 H 80 (74-99) mg/dL Calcium 8.3 L 8.7 (8.4-10.2) mg/dL Calcium panel 07/28/18 07/29/18 Range/Units 18:30 07:24 Calcium 8.3 L 8.7 (8.4-10.2) mg/dL Pituitary panel 07/28/18 07/29/18 Range/Units 18:30 07:24 Sodium 134 L 137 (137-145) mmol/L Potassium 5.9 H 4.2 (3.5-5.1) mmol/L Chloride 105 103 (98-107) mmol/L Carbon Dioxide 22 27 (22-30) mmol/L BUN 21 H 24 H (9-20) mg/dL Creatinine 0.86 1.02 (0.66-1.25) mg/dL Glucose 103 H 80 (74-99) mg/dL Calcium 8.3 L 8.7 (8.4-10.2) mg/dL Adrenal panel 07/28/18 07/29/18 Range/Units 18:30 07:24 Sodium 134 L 137 (137-145) mmol/L Potassium 5.9 H 4.2 (3.5-5.1) mmol/L Chloride 105 103 (98-107) mmol/L Carbon Dioxide 22 27 (22-30) mmol/L BUN 21 H 24 H (9-20) mg/dL Creatinine 0.86 1.02 (0.66-1.25) mg/dL Glucose 103 H 80 (74-99) mg/dL Calcium 8.3 L 8.7 (8.4-10.2) mg/dL Assessment and Plan Assessment: S/P Descending thoracic aortic stent graft at [facility]. Plan: No surgical intervention indicated.
[2018-07-29 15:11] VITALS: BMI 19.1
[2018-07-29] MEDS ORDERED: ACETAMINOPHEN TAB 325 MG TAB PO PRN (16:44)
--- NOTE | 2018-07-29 17:58 | HP ---
HISTORY AND PHYSICAL DATE OF ADMISSION: 07/28/2018 DATE OF SERVICE: 07/29/2018. PRESENTING COMPLAINT: High INR. HISTORY OF PRESENTING COMPLAINT: This is a pleasant 73-year-old patient of Dr. Reed. The patient was at [facility] where he had aortic replacement done and patient also then got a Dobbhoff tube. The patient is currently at rehab at the [facility]. The patient has been tolerating his oral diet now and Dobbhoff tube is not being used anymore. The patient's chronic stable medical conditions include COPD, GERD, hyperlipidemia, hypertension, neuromuscular bladder dysfunction. The patient yesterday was found to have an INR greater than 10 and presented to the ER. He was given 2.5 mg p.o. vitamin K in the ER. Today INR was still above 10. The patient had a very small bit of coughed up some blood. I gave the patient another 5 mg IV piggyback. Otherwise, patient is asymptomatic. REVIEW OF SYSTEMS: CONSTITUTIONAL: None. HEENT as above. RESPIRATORY: None. CARDIOVASCULAR: None. GASTROINTESTINAL: Has a Dobbhoff tube. GENITOURINARY: Incontinence. MUSCULOSKELETAL: Pain in the joints. DERMATOLOGICAL, HEMATOLOGICAL, LYMPHATICS: None. PSYCHIATRY: A bit forgetful. NEUROLOGICAL: Neurogenic bladder. PAST MEDICAL HISTORY: COPD, GERD, hyperlipidemia, hypertension, neurogenic bladder, iron deficiency anemia. Peptic ulcer, aortic dissection. PAST SURGICAL HISTORY: Thoracic aortic repair at [facility] in May of this year. SOCIAL HISTORY: . Currently at the [facility]. Did smoke in the past. Alcohol occasionally. FAMILY HISTORY: Reviewed, noncontributory to presentation. HOME MEDICATIONS: 1. Humalog insulin per scale. 2. Combivent. 3. Respimat 1 puff t.i.d. 4. Midodrine 10 mg q.12. 5. Imodium 4 mg q.12. 6. Coumadin 12.5, Tuesday, , Tuesday and 10 mg on Tuesday, Tuesday, Tuesday, Tuesday. 7. Multivitamin 1 tablet p.o. daily. 8. Iron 320 mg p.o. daily. 9. Esomeprazole 20 mg p.o. daily. 10.Cholestyramine 4 grams p.o. daily. 11.Aspirin 81 mg p.o. daily. 12.Vitamin C 500 mg p.o. daily. 13.Tylenol 8 650 mg q.6h p.r.n. ALLERGIES: None. PHYSICAL EXAMINATION: VITAL SIGNS: Temperature 98.1, pulse 98, respiration 26, blood pressure 146/98, pulse 97% on room air. GENERAL APPEARANCE: Sitting up, comfortable. BMI . EYES: Pupils equal. Conjunctivae normal. HEENT: External appearance of nose and ears normal. Oral cavity normal. NECK: JVD not raised. Mass not palpable. RESPIRATORY: Effort normal. LUNGS: Slightly decreased breath sounds. CARDIOVASCULAR: First and second sounds normal. No edema. ABDOMEN: Soft nontender, Dobbhoff tube present. LYMPHATICS: No lymph nodes palpable in the neck and axilla. PSYCHIATRY: Alert and oriented times three. Mood and affect normal. NEUROLOGICAL: Pupils equal. Cranial nerves grossly intact. Power and sensation grossly intact. INVESTIGATIONS: White count 11.7, hemoglobin 9.8, repeat 10.3. INR greater than 10, repeat was greater than 10 this morning. Potassium was 5.9, repeat 4.2. BUN 21, creatinine 0.86. EKG tracing personally reviewed by me shows normal sinus rhythm, ST-segment changes. CT scan of the chest reports bilateral pleural effusion with right middle lobe and right lower lobe infiltrates. Descending chronic aortic aneurysm. There is a stent in the descending aorta. ASSESSMENT: 1. Supratherapeutic INR with the patient on Coumadin with a very small amount of hemoptysis this morning but the patient has no respiratory symptoms. Otherwise totally asymptomatic. Did receive 2.5 of Coumadin in the ER yesterday and got some more Coumadin this morning. 2. Chronic obstructive pulmonary disease. 3. Gastroesophageal reflux disease. 4. Hyperlipidemia. 5. Essential hypertension. 6. Chronic neurogenic bladder. 7. History of thoracic aortic and aneurysm not dissection with a stent. 8. Feeding tube in the abdomen. 9. Abnormal CT scan though the patient has no symptoms. 10.Hyperkalemia now corrected. PLAN: Patient already receive vitamin K. Vitamin K being followed closely. Repeat again the hemoglobin in the morning and INR. Other medications to continue. Patient seen by Cardiothoracic surgery. Copy to Dr. Reed. MMSHAKAL / SUREKHAN: [id number] /
[2018-07-29 18:28] LABS: INR 2.1 (<1.2); Prothrombin Time 20.9 sec (9.0-12.0)
[2018-07-30] MEDS: PANTOPRAZOLE 40 MG TABLET PO SCH (06:44)
[2018-07-30] MEDS: SODIUM CHLORIDE 0.9% 1,000 ML IV SCH ×2 (06:45→20:42)
[2018-07-30 07:08] LABS: INR 1.4 (<1.2); Prothrombin Time 14.4 sec (9.0-12.0)
[2018-07-30 07:29] LABS: Anisocytosis Slight; Basophils % (A) 0 %; Eosinophils # (A) 0.3 k/uL (0-0.7); Eosinophils % (A) 3 %; HCT 29.9 % (39.0-53.0); HGB 9.6 gm/dL (13.0-17.5); Hypochromasia Moderate; Lymphocytes # (A) 1.8 k/uL (1.0-4.8); Lymphocytes % (A) 15 %; MCV 93.5 fL (80.0-100.0); Mean Platelet Volume 8.5; Monocytes # (A) 0.7 k/uL (0-1.0); Monocytes % (A) 6 %; Neutrophils # (A) 8.4 k/uL (1.3-7.7); Neutrophils % (A) 74 %; Platelet Count 201 k/uL (150-450); RDW 17.5 % (11.5-15.5); WBC 11.3 k/uL (3.8-10.6)
[2018-07-30] MEDS: IPRATROPIUM-ALBUTEROL 3 ML NEB INHALATION SCH ×3 (07:55→20:33)
[2018-07-30] MEDS: MIDODRINE 5 MG TAB PO SCH ×2 (10:35→20:42)
[2018-07-30] MEDS: ASPIRIN 81 MG PO SCH (10:36)
[2018-07-30] MEDS: ASCORBIC ACID 500 MG TAB PO SCH (10:36)
[2018-07-30] MEDS: FERROUS SULFATE ORAL ELIXIR 300 MG/5 ML CUP PO SCH (11:50)
[2018-07-30] MEDS: MULTIVITAMINS, THERA 1 EACH TAB PO SCH (11:50)
[2018-07-30] MEDS ORDERED: WARFARIN 7.5 MG TAB PO ONE (18:00)
[2018-07-30 21:32] VITALS: RESP 18
--- NOTE | 2018-07-30 23:41 | PN ---
PROGRESS NOTE DATE OF SERVICE: 07/30/2018 PRESENTING COMPLAINT: High INR. INTERVAL HISTORY: This patient presented with an INR greater than 10. Did receive vitamin K. INR has come down this morning. No evidence of any bleeding. Tolerating a diet. Coumadin is to be resumed this afternoon. REVIEW OF SYSTEMS: Done for constitutional, cardiovascular, GI, pulmonary; relevant findings as above. CURRENT MEDICATIONS: Reviewed. PHYSICAL EXAMINATION: VITAL SIGNS: Temperature 98.8, pulse 107, respiratory 18, blood pressure 113/72, pulse ox 96% on room air. GENERAL APPEARANCE: Sitting up, comfortable. EYES: Pupils equal. Conjunctivae normal. NECK: JVD not raised. Mass not palpable. RESPIRATORY: Effort normal. LUNGS: Diminished breath sounds. CARDIOVASCULAR: First and second sounds normal. No edema. ABDOMEN: Soft, nontender. Liver and spleen not palpable. Dobbhoff tube is present. PSYCHIATRY: Awake, answering questions. INVESTIGATIONS: White count 11.3, hemoglobin 9.6, INR 1.4. ASSESSMENT: 1. Supratherapeutic INR reversed with vitamin K. 2. Chronic obstructive pulmonary disease. 3. Gastroesophageal reflux disease. 4. Hyperlipidemia. 5. Essential hypertension. 6. Chronic neurogenic bladder. 7. History of thoracic aortic aneurysm repair with stent. 8. Feeding tube in the abdomen. 9. Abnormal CT scan with no symptoms. 10.Hypokalemia corrected. PLAN: Will resume patient's Coumadin. The patient will be discharged on 5 mg. Repeat INR tomorrow. MMODL / IJN: [id number] /
[2018-07-31] MEDS: PANTOPRAZOLE 40 MG TABLET PO SCH (06:17)
[2018-07-31 06:31] LABS: Anisocytosis Slight; Basophils # (A) 0.1 k/uL (0-0.2); Basophils % (A) 1 %; Eosinophils # (A) 0.3 k/uL (0-0.7); Eosinophils % (A) 3 %; HCT 31.2 % (39.0-53.0); HGB 9.8 gm/dL (13.0-17.5); Hypochromasia Moderate; Lymphocytes # (A) 1.5 k/uL (1.0-4.8); Lymphocytes % (A) 15 %; MCH 29.7 pg (25.0-35.0); MCHC 31.5 g/dL (31.0-37.0); MCV 94.5 fL (80.0-100.0); Macrocytosis Slight; Mean Platelet Volume 8.3; Monocytes # (A) 0.7 k/uL (0-1.0); Monocytes % (A) 7 %; Neutrophils # (A) 7.4 k/uL (1.3-7.7); Neutrophils % (A) 74 %; Platelet Count 202 k/uL (150-450); RDW 18.3 % (11.5-15.5)
[2018-07-31 06:41] LABS: INR 2.5 (<1.2); Prothrombin Time 24.6 sec (9.0-12.0)
[2018-07-31] MEDS: ASCORBIC ACID 500 MG TAB PO SCH (08:42)
[2018-07-31] MEDS: ASPIRIN 81 MG PO SCH (08:42)
[2018-07-31] MEDS: MIDODRINE 5 MG TAB PO SCH (08:42)
[2018-07-31] MEDS: MULTIVITAMINS, THERA 1 EACH TAB PO SCH (08:42)
[2018-07-31] MEDS: FERROUS SULFATE ORAL ELIXIR 300 MG/5 ML CUP PO SCH (08:42)
[2018-07-31] MEDS: IPRATROPIUM-ALBUTEROL 3 ML NEB INHALATION SCH (09:05)
[2018-07-31 11:18] VITALS: BP 86/63; PULSE 104; TEMP 97.3
--- NOTE | 2018-07-31 12:20 | DS ---
DISCHARGE SUMMARY DATE OF ADMISSION: 07/28/2018 DATE OF DISCHARGE: 07/31/2018 FINAL DIAGNOSES: 1. Coumadin toxicity with supratherapeutic INR with no overt bleeding. 2. Chronic obstructive pulmonary disease. 3. Gastroesophageal reflux disease. 4. Hyperlipidemia. 5. Essential hypertension. 6. Chronic neurogenic bladder. 7. History of thoracic aortic aneurysm with repair with stent. 8. Feeding tube in abdomen, not really being used. 9. Hypokalemia, corrected. HOSPITAL COURSE: This is a patient who is on Coumadin for a thoracic aortic aneurysm with a stent, presented with INR greater than 10. Did receive vitamin K and then INR came down. Coumadin was resumed yesterday. INR is 2.5 today. Hemoglobin is stable at 9.8. Patient had a very small amount of hemoptysis that settled down. Doing well. Care was discussed with the patient and the . PHYSICAL EXAMINATION: Temperature 97.3, pulse 104, respiratory rate 18, blood pressure 86/63, pulse ox 96% on room air. ABDOMEN: Soft, nontender. PEG tube in place. DISCHARGE MEDICATIONS: 1. Humalog per scale. 2. Combivent 1 puff t.i.d. 3. Tylenol 650 q.6 p.r.n. 4. Vitamin C 500 mg p.o. daily. 5. Aspirin 81 mg a day. 6. Omeprazole 20 mg p.o. daily. 7. Iron 330 mg p.o. daily. 8. Imodium 4 mg q.12. 9. ProAmatine 10 mg p.o. q.12. 10.Multivitamin 1 tablet p.o. daily. 11.Warfarin 500 mg p.o. daily. DISPOSITION: [facility]. FOLLOWUP: Follow up with Dr. Reed at the [facility]. LABS: CBC, INR in 2 days. MMODL / IJN: [id number] /
[2018-07-31] MEDS ORDERED: WARFARIN 5 MG TAB PO SCH (18:00)
== END 2018-07-31 13:32 | DRG 204 ==
LOC: EC 17:51 → 4SSUR 20:38 → 3SCARD 21:20
PROVIDERS: ADMIT Hospitalist; ATTEND Hospitalist
DX: R04.2 Hemoptysis (principal); D68.32 Hemorrhagic disorder due to extrinsic circulating anticoagulants; J90 Pleural effusion, not elsewhere classified; T45.515A Adverse effect of anticoagulants, initial encounter; J44.9 Chronic obstructive pulmonary disease, unspecified; E87.5 Hyperkalemia; N31.9 Neuromuscular dysfunction of bladder, unspecified; R13.10 Dysphagia, unspecified; D72.829 Elevated white blood cell count, unspecified; I10 Essential (primary) hypertension; E78.5 Hyperlipidemia, unspecified; K21.9 Gastro-esophageal reflux disease without esophagitis; D50.9 Iron deficiency anemia, unspecified; Z79.82 Long term (current) use of aspirin; Z79.01 Long term (current) use of anticoagulants; Z79.4 Long term (current) use of insulin; Z79.899 Other long term (current) drug therapy; Z93.1 Gastrostomy status; Z87.891 Personal history of nicotine dependence; Z95.828 Presence of other vascular implants and grafts; Z91.5 Personal history of self-harm
CPT/HCPCS: 36415; 71260; 80048; 83735; 84484; 85025; 85027; 85610; 85730; 86850; 86900; 86901; 93005; 94640; 94760; 96374; 96375; 99285

== ENCOUNTER 2018-09-11 08:31 | Inpatient (IN) | payer MEDICARE, OTHER ==
[2018-09-11] MEDS ORDERED: SODIUM CHLORIDE 0.9% 500 ML 500 ML IV STA (08:51)
[2018-09-11 09:31] LABS: Anisocytosis Slight; Basophils % (A) 0 %; Eosinophils % (A) 0 %; HCT 40.2 % (39.0-53.0); HGB 12.1 gm/dL (13.0-17.5); Hypochromasia Marked; Lymphocytes # (A) 0.9 k/uL (1.0-4.8); Lymphocytes % (A) 7 %; MCH 29.4 pg (25.0-35.0); MCHC 30.2 g/dL (31.0-37.0); MCV 97.5 fL (80.0-100.0); Macrocytosis Slight; Mean Platelet Volume 9.5; Monocytes # (A) 0.6 k/uL (0-1.0); Monocytes % (A) 5 %; Neutrophils # (A) 10.3 k/uL (1.3-7.7); Neutrophils % (A) 87 %; Platelet Count 200 k/uL (150-450); RBC 4.12 m/uL (4.30-5.90); RDW 19.9 % (11.5-15.5); WBC 11.9 k/uL (3.8-10.6)
[2018-09-11 09:39] LABS: Albumin 3.2 g/dL (3.5-5.0); Calcium 8.8 mg/dL (8.4-10.2); Magnesium 2.1 mg/dL (1.6-2.3); Potassium 5.9 mmol/L (3.5-5.1); Total Bilirubin 1.1 mg/dL (0.2-1.3); Total Protein 6.2 g/dL (6.3-8.2)
[2018-09-11 09:40] LABS: INR 2.6 (<1.2); Partial Thromboplastin Time 24.7 sec (22.0-30.0); Prothrombin Time 25.5 sec (9.0-12.0)
--- NOTE | 2018-09-11 09:40 | XR ---
EXAMINATION TYPE: XR chest 2V DATE OF EXAM: 09/11/2018 COMPARISON: PET/CT dated 07/28/2018 HISTORY: Difficulty breathing TECHNIQUE: Frontal and lateral views of the chest are obtained. FINDINGS: There is tenting of the known aneurysm of the descending thoracic aorta beginning of the a ortic arch. Pulmonary hyperinflation and flattening of the diaphragms representing underlying COPD. T here are trace bilateral pleural effusions and bibasilar airspace disease. No aydee pulmonary vascula r congestion. Cardia mediastinal silhouette is enlarged. Diffuse osseous demineralization is evident. IMPRESSION: Trace pleural effusions and bibasilar airspace disease, likely atelectasis with underlyi ng COPD. No current pulmonary vascular congestion.
--- NOTE | 2018-09-11 09:59 | ED ---
SOB HPI - General Source: patient, EMS, RN notes reviewed Mode of arrival: EMS Limitations: no limitations <Chon Wiblurn - Last Filed: 09/11/18 10:37> <Callum Weaver - Last Filed: 09/11/18 11:01> - General Chief Complaint: Shortness of Breath Stated Complaint: CASEY Time Seen by Provider: 09/11/18 08:35 - History of Present Illness Initial Comments: 73-year-old male presents emergency Department with chief complaint of increased shortness of breath. Patient was brought to emergency from via EMS from [facility] for increasing cough congestion. Patient does have underlying COPD and prior cardiac/thoracic aortic surgery. Patient states he had a graft placed in May. Patient's does have a chronic Guzman sense and is. Patient denies any specific complaints including abdominal pain, nausea and diarrhea con stipation. Patient does have a feeding tube though per EMS he was eating when they arrived. Patient said no reported fever. Patient denies chest pain (Chon Wilburn) - Related Data Home Medications Medication Instructions Recorded Confirmed Ipratropium/Albuterol Sulfate 1 puff INHALATION RT-TID 07/10/18 09/11/18 [Combivent Respimat Inhaler] Multivitamins, Thera [Multivitamin 1 tab PO DAILY 07/28/18 09/11/18 (formulary)] Ferrous Sulfate [Feosol] 325 mg PO DAILY 09/11/18 09/11/18 Furosemide [Lasix] 40 mg PO DAILY 09/11/18 09/11/18 Levofloxacin [Levaquin] 500 mg PO DAILY 09/11/18 09/11/18 Potassium Chloride [Klor-Con 20] 20 meq PO DIRECTED 09/11/18 09/11/18 Sennosides [Senokot] 8.6 mg PO BID 09/11/18 09/11/18 Warfarin Sodium [Coumadin] 4 mg PO SUMOTUTHFRSA 09/11/18 09/11/18 Warfarin [Coumadin] 2 mg PO WE 09/11/18 09/11/18 Previous Rx's Medication Instructions Recorded Acetaminophen [Tylenol 8 Hour] 650 mg PO Q6HR PRN #0 07/12/18 Ascorbic Acid [Vitamin C] 500 mg PO DAILY #0 07/12/18 Aspirin 81 mg PO DAILY #0 07/12/18 Esomeprazole Magnesium 20 mg PO DAILY #0 07/12/18 Midodrine HCl [ProAmatine] 10 mg PO Q12HR #0 07/12/18 Allergies Allergy/AdvReac Type Severity Reaction Status Date / Time No Known Allergies Allergy Verified 09/11/18 09:08 Review of Systems ROS Other: All systems not noted in ROS Statement are negative. <Chon Wilburn - Last Filed: 09/11/18 10:37> ROS Other: All systems not noted in ROS Statement are negative. <Callum Weaver - Last Filed: 09/11/18 11:01> ROS Statement: Those systems with pertinent positive or pertinent negative responses have been documented in the HPI. Past Medical History Past Medical History: COPD, Dialysis, GERD/Reflux, Hyperlipidemia, Hypertension Additional Past Medical History / Comment(s): Neuromuscular dysfunction of bladder, iron deficiency anemia, neurogenic bladder, pressure ulcers, dissection of thoracic aorta History of Any Multi-Drug Resistant Organisms: None Reported Past Surgical History: No Surgical Hx Reported Additional Past Surgical History / Comment(s): May 2018 thoracic aorta repair at [facility] Past Anesthesia/Blood Transfusion Reactions: No Reported Reaction Past Psychological History: No Psychological Hx Reported Smoking Status: Former smoker Past Alcohol Use History: Occasional Past Drug Use History: None Reported <Chon Wilburn - Last Filed: 09/11/18 10:37> General Exam Limitations: no limitations General appearance: alert, in no apparent distress Head exam: Present: atraumatic, normocephalic, normal inspection Eye exam: Present: normal appearance, PERRL, EOMI. Absent: scleral icterus, conjunctival injection, periorbital swelling ENT exam: Present: normal exam, normal oropharynx, mucous membranes moist, TM's normal bilaterally Neck exam: Present: normal inspection, full ROM. Absent: tenderness, meningismus, lymphadenopathy Respiratory exam: Present: wheezes. Absent: normal lung sounds bilaterally, respiratory distress, rales, rhonchi, stridor Cardiovascular Exam: Present: regular rate, normal rhythm, normal heart sounds. Absent: systolic murmur, diastolic murmur, rubs, gallop, clicks Neurological exam: Present: alert, oriented X3, CN II-XII intact Skin exam: Present: warm, dry, intact, normal color. Absent: rash <Chon Wilburn - Last Filed: 09/11/18 10:37> Course Vital Signs 09/11/18 09/11/18 09/11/18 08:42 08:45 10:57 Temperature 97.1 F L Pulse Rate 89 90 Respiratory 22 22 18 Rate Blood Pressure 124/68 130/86 O2 Sat by Pulse 94 L 98 Oximetry Medical Decision Making - Lab Data Result diagrams: 09/11/18 09:00 09/11/18 09:00 <Chon Wilburn - Last Filed: 09/11/18 10:37> - Lab Data Result diagrams: 09/11/18 09:00 09/11/18 09:00 <Callum Weaver - Last Filed: 09/11/18 11:01> - Medical Decision Making 73-year-old male presented for dyspnea. Patient will be admitted for UTI sepsis with acute CHF (Chon Wilburn) Patient reexamined and reevaluated by myself, Dr. Weaver. Patient resting comfortably in bed. Lung sounds with some wheezing and decreased lung sounds throughout. I do agree with PA findings. This includes diagnostic interpretation and treatment plan. Patient will be admitted for UTI, CHF, COPD. Case was discussed in detail with Dr. landeros, covering for Dr. Reed, who will admit. (Callum Weaver) - Lab Data Lab Results 09/11/18 09/11/18 09/11/18 Range/Units 09:00 09:00 09:00 WBC 11.9 H (3.8-10.6) k/uL RBC 4.12 L (4.30-5.90) m/uL Hgb 12.1 L (13.0-17.5) gm/dL Hct 40.2 (39.0-53.0) % MCV 97.5 (80.0-100.0) fL MCH 29.4 (25.0-35.0) pg MCHC 30.2 L (31.0-37.0) g/dL RDW 19.9 H (11.5-15.5) % Plt Count 200 (150-450) k/uL Neutrophils % 87 % Lymphocytes % 7 % Monocytes % 5 % Eosinophils % 0 % Basophils % 0 % Neutrophils # 10.3 H (1.3-7.7) k/uL Lymphocytes # 0.9 L (1.0-4.8) k/uL Monocytes # 0.6 (0-1.0) k/uL Eosinophils # 0.0 (0-0.7) k/uL Basophils # 0.0 (0-0.2) k/uL Hypochromasia Marked Anisocytosis Slight Macrocytosis Slight PT (9.0-12.0) sec INR (<1.2) APTT (22.0-30.0) sec Sodium 140 (137-145) mmol/L Potassium 5.9 H (3.5-5.1) mmol/L Chloride 104 (98-107) mmol/L Carbon Dioxide 26 (22-30) mmol/L Anion Gap 10 mmol/L BUN 50 H (9-20) mg/dL Creatinine 1.81 H (0.66-1.25) mg/dL Est GFR (CKD-EPI)AfAm 43 (>60 ml/min/1.73 sqM) Est GFR (CKD-EPI)NonAf 37 (>60 ml/min/1.73 sqM) Glucose 152 H (74-99) mg/dL Plasma Lactic Acid Francis (0.7-2.0) mmol/L Calcium 8.8 (8.4-10.2) mg/dL Magnesium 2.1 (1.6-2.3) mg/dL Total Bilirubin 1.1 (0.2-1.3) mg/dL AST 323 H (17-59) U/L ALT 379 H (21-72) U/L Alkaline Phosphatase 176 H (38-126) U/L Troponin I (0.000-0.034) ng/mL NT-Pro-B Natriuret Pep 64019 pg/mL Total Protein 6.2 L (6.3-8.2) g/dL Albumin 3.2 L (3.5-5.0) g/dL 09/11/18 09/11/18 09/11/18 Range/Units 09:00 09:00 09:00 WBC (3.8-10.6) k/uL RBC (4.30-5.90) m/uL Hgb (13.0-17.5) gm/dL Hct (39.0-53.0) % MCV (80.0-100.0) fL MCH (25.0-35.0) pg MCHC (31.0-37.0) g/dL RDW (11.5-15.5) % Plt Count (150-450) k/uL Neutrophils % % Lymphocytes % % Monocytes % % Eosinophils % % Basophils % % Neutrophils # (1.3-7.7) k/uL Lymphocytes # (1.0-4.8) k/uL Monocytes # (0-1.0) k/uL Eosinophils # (0-0.7) k/uL Basophils # (0-0.2) k/uL Hypochromasia Anisocytosis Macrocytosis PT 25.5 H (9.0-12.0) sec INR 2.6 H (<1.2) APTT 24.7 (22.0-30.0) sec Sodium (137-145) mmol/L Potassium (3.5-5.1) mmol/L Chloride (98-107) mmol/L Carbon Dioxide (22-30) mmol/L Anion Gap mmol/L BUN (9-20) mg/dL Creatinine (0.66-1.25) mg/dL Est GFR (CKD-EPI)AfAm (>60 ml/min/1.73 sqM) Est GFR (CKD-EPI)NonAf (>60 ml/min/1.73 sqM) Glucose (74-99) mg/dL Plasma Lactic Acid Francis 3.4 H* (0.7-2.0) mmol/L Calcium (8.4-10.2) mg/dL Magnesium (1.6-2.3) mg/dL Total Bilirubin (0.2-1.3) mg/dL AST (17-59) U/L ALT (21-72) U/L Alkaline Phosphatase (38-126) U/L Troponin I 0.074 H* (0.000-0.034) ng/mL NT-Pro-B Natriuret Pep pg/mL Total Protein (6.3-8.2) g/dL Albumin (3.5-5.0) g/dL - EKG Data EKG Comments: EKG performed at 18:57 normal sinus rhythm with a rate of 90 OR 152 QRS 88 Q T/QTC 376/459 is noted inverted T waves in the lateral leads (Chon Wilburn) Critical Care Time Critical Care Time: Yes Total Critical Care Time: 35 <Chon Wilburn - Last Filed: 09/11/18 10:37> Critical Care Time: : 35 minutes of critical care time refused initially evaluated the patient, reviewed past medical history including [facility] Labs, EKG, chest x-ray were ordered. Blood work revealed elevated white count, potassium of 5.9. Patient was given Lasix, D50, insulin. EKG does not show any peaked T waves. Patient does have mild elevated troponin though this may be related to kidney function. There is no evidence of acute [place] on EKG. Patient's BMP is noted to be elevated at 25,000 and chest x-ray shows mild effusion. Patient's lactic acid is elevated and is concerning urinalysis which shows evidence of infection yesterday. Patient was started on Rocephin. Patient we diagnose a sepsis. Patient only given IV fluid bolus of 500 secondary to concerns for CHF. (Chon Wilburn) Disposition <Chon Wilburn - Last Filed: 09/11/18 10:37> <aCllum Weaver - Last Filed: 09/11/18 11:01> Clinical Impression: Sepsis, UTI (urinary tract infection), Acute CHF, Dyspnea, Hyperkalemia Disposition: ADMITTED IP TO THIS HOSP Condition: Fair Referrals: Tigre Reed DO [Primary Care Provider] - 1-2 days
[2018-09-11] MEDS ORDERED: cefTRIAXone IN SWFI 1,000 MG/10 ML SYRINGE IVP STA (10:31)
[2018-09-11] MEDS ORDERED: FUROSEMIDE 10 MG/ML 4 ML VIAL IV STA (10:33)
[2018-09-11] MEDS ORDERED: DEXTROSE 50% SYRINGE 50 ML IVP STA (10:33)
[2018-09-11] MEDS ORDERED: INSULIN REGULAR 100 UNIT/ML VIAL IV ONE (10:33)
[2018-09-11] MEDS ORDERED: FUROSEMIDE 10 MG/ML 4 ML VIAL IV SCH (21:00)
[2018-09-11] MEDS ORDERED: ACETAMINOPHEN TAB 325 MG TAB PO PRN (21:55)
[2018-09-11] MEDS ORDERED: POTASSIUM CHLORIDE ER 20 MEQ TAB.ER PO SCH (22:00)
[2018-09-11] MEDS ORDERED: SODIUM POLYSTYRENE SULFONATE 15 GM/60 ML BOTTLE PO STA (22:00)
[2018-09-11] MEDS: FUROSEMIDE 10 MG/ML 10 ML VIAL IV SCH (22:16)
[2018-09-11] MEDS: WARFARIN 2 MG TAB PO SCH (22:25)
--- NOTE | 2018-09-11 22:34 | HP ---
HISTORY AND PHYSICAL DATE OF ADMISSION: 09/11/2018 DATE OF SERVICE: 09/11/2018. PRESENTING COMPLAINT: Congested short of breath. HISTORY OF PRESENTING COMPLAINT: This is a 73-year-old patient of Dr. Reed. The patient at the [facility] went in to have aortic stent graft done in the thoracic aorta and also did get a Dobbhoff tube. The patient is currently at the rehab [facility], uses a wheelchair. The patient takes an oral diet. Chronic stable medical conditions include COPD, GERD, hyperlipidemia, hypertension, neuromuscular bladder dysfunction, has got a chronic Guzman catheter. Appetite is good. The patient was sent in for increasing shortness of breath, congested cough. There is no phlegm. No fever. No chills. The patient was felt to be in CHF in the ER, given a dose of IV Lasix and admitted for the same. REVIEW OF SYSTEMS: CONSTITUTIONAL: Tired. HEENT: None. RESPIRATORY: As above. CARDIOVASCULAR as above. GASTROINTESTINAL has a Dobbhoff tube. GENITOURINARY: Has a chronic Guzman catheter. MUSCULOSKELETAL: Pain in the joints. DERMATOLOGICAL, HEMATOLOGICAL, LYMPHATICS: None. PSYCHIATRY: Slightly forgetful. NEUROLOGICAL: Neurogenic bladder. PAST MEDICAL HISTORY: COPD GERD, hyperlipidemia, hypertension, neurogenic bladder, iron deficiency anemia, peptic ulcer, aortic dissection. PAST SURGICAL HISTORY: repair with a stent graft [facility] in May of this year. SOCIAL HISTORY: . Resident of [facility]. Alcohol occasionally. FAMILY HISTORY: Reviewed, not pertinent to presentation. HOME MEDICATIONS: 1. Coumadin 4 mg daily except 2 mg on Tuesday. 2. Tylenol 8 650 mg q.6h p.r.n. 3. Senokot 8.6 mg b.i.d. 4. Potassium 20 mEq. 5. Combivent 1 puff t.i.d. 6. Primatene 10 mg q.12. 7. Multivitamin 1 tablet p.o. daily. 8. Levaquin 500 mg p.o. daily. 9. Esomeprazole 20 mg p.o. daily. 10.Vitamin C 500 mg p.o. daily. 11.Lasix 40 mg p.o. daily. 12.Iron 325 p.o. daily. 13.Aspirin 81 mg daily. ALLERGIES: None. PHYSICAL EXAMINATION: VITAL SIGNS: Vital signs on presentation, temperature 97.1. Pulse 59, respiratory rate 22, blood pressure 124/69, pulse ox 94 percent on 2 L. GENERAL APPEARANCE: Propped up in bed, tired-appearing. EYES: Pupils equal. Conjunctivae normal. HEENT: External appearance of nose and ears normal. Oral cavity normal. NECK: JVD unable to assess. Mass not palpable. RESPIRATORY: Effort increased. LUNGS: Inspiratory and expiratory crackles. Decreased breath sounds. CARDIOVASCULAR: 1st and 2nd sounds, no edema. ABDOMEN: Soft, nontender. Feeding tube in place. LYMPHATIC: No lymph nodes palpable in the neck and axilla. PSYCHIATRY: Patient is able to answer simple questions. NEUROLOGICAL: Pupils equal. Cranial nerves grossly intact. Power and sensation grossly intact. INVESTIGATIONS: White count 11.9, hemoglobin 12.1, potassium 5.9, BUN 50, creatinine 1.81, AST 323, ALT 379. Troponin 0.074. Chest x-ray film personally reviewed by me shows pulmonary edema, pleural effusion. ASSESSMENT: 1. Acute congestive heart failure exacerbation, Ejection fraction not known. 2. Chronic obstructive pulmonary disease. 3. Gastroesophageal reflux disease. 4. Hyperlipidemia. 5. Essential hypertension. 6. Chronic neurogenic bladder with chronic Guzman. 7. History of thoracic aortic aneurysm repair with a stent. 8. Feeding tube in the abdomen, currently not being used. 9. Hyperkalemia secondary to renal failure. 10.Potassium supplement. 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 12.Troponin leak in the setting of renal failure. The patient does not have any acute coronary syndrome. PLAN: Patient is started on IV Lasix 80 mg q.12h. Follow electrolytes closely. The patient will get some insulin and other medications with his potassium in the ER. Will give 30 grams of Kayexalate, stop patient's potassium supplement. We will also add DuoNeb also that will help with the hyperkalemia. Care was discussed with the patient. Questions were answered. Copy to Dr. Reed. Will order a 2-D echocardiogram in the morning. MMODL / IJN: [id number] /
[2018-09-11] MEDS: IPRATROPIUM-ALBUTEROL 3 ML NEB INHALATION SCH (23:38)
[2018-09-12] MEDS: PANTOPRAZOLE 40 MG TABLET PO SCH (06:16)
[2018-09-12 06:36] LABS: Anisocytosis Moderate; Basophils % (A) 0 %; Eosinophils # (A) 0.2 k/uL (0-0.7); Eosinophils % (A) 1 %; HCT 37.6 % (39.0-53.0); HGB 11.3 gm/dL (13.0-17.5); Hypochromasia Marked; Lymphocytes # (A) 1.2 k/uL (1.0-4.8); Lymphocytes % (A) 10 %; MCH 29.3 pg (25.0-35.0); MCHC 30.2 g/dL (31.0-37.0); Macrocytosis Slight; Mean Platelet Volume 8.9; Monocytes # (A) 0.8 k/uL (0-1.0); Monocytes % (A) 7 %; Neutrophils # (A) 8.8 k/uL (1.3-7.7); Neutrophils % (A) 79 %; Platelet Count 173 k/uL (150-450); RBC 3.87 m/uL (4.30-5.90); WBC 11.2 k/uL (3.8-10.6)
[2018-09-12 06:39] LABS: INR 2.7 (<1.2); Prothrombin Time 26.3 sec (9.0-12.0)
[2018-09-12 06:51] LABS: Calcium 8.4 mg/dL (8.4-10.2); Potassium 4.6 mmol/L (3.5-5.1)
[2018-09-12] MEDS ORDERED: IPRATROPIUM-ALBUTEROL 3 ML NEB INHALATION SCH (08:00)
[2018-09-12] MEDS: IPRATROPIUM-ALBUTEROL 3 ML NEB INHALATION SCH ×3 (08:01→20:09)
[2018-09-12] MEDS: FUROSEMIDE 10 MG/ML 10 ML VIAL IV SCH ×3 (08:54→23:24)
[2018-09-12] MEDS: ASPIRIN 81 MG PO SCH (08:55)
[2018-09-12] MEDS: FERROUS SULFATE 325 MG TAB PO SCH (08:55)
[2018-09-12] MEDS: MULTIVITAMINS, THERA 1 EACH TAB PO SCH (08:55)
--- NOTE | 2018-09-12 09:45 | P.CRDCN ---
History of Present Illness Consult date: 09/12/18 Requesting physician: Miguel Elias Consult reason: congestive heart failure Chief complaint: Fever, shortness of breath, cough History of present illness: Is is a 73-year-old gentleman, past medical history significant for thoracic aortic aneurysm status post repair at [facility] in May 2018, history of hypertension, hyperlipidemia, COPD, GERD, history of neuromuscular dysfunction of his bladder with episodes of incontinence, he has a chronic Guzman catheter in place, history of nicotine dependence, patient quit smoking in May, history of pressure ulcers, malnutrition, iron deficiency anemia, he is currently at [facility] for rehab, presented to the hospital because of fever, tachycardia, and shortness of breath. Patient also has significant bilateral peripheral edema which she states is much worse than his usual, he also states he is unable to use his legs because he is so weak. Chest x-ray performed on admission here showed trace pleural effusions and bibasilar air space disease, likely atelectasis with underlying COPD, no clear-cut evidence of pulmonary vascular congestion. EKG shows a normal sinus rhythm with inferior lateral ST-T wave changes, similar to prior EKGs. Blood pressure on arrival here 124/60 with a heart rate in the 80s, 94% on 3 L of oxygen. White blood cell count on admission 14.4, hemoglobin 10.8, platelet count 197, sodium 137, potassium 6.3, BUN 44 and creatinine 1.6. Plasma lactic acid 3.4 on admission, AST 323, ALT 379 and alk phos 176, troponin 0.074, BNP level 25,100. This morning's creatinine 1.5, potassium 4.6, INR 2.7. Positive UTI. At the time of my examination this morning, patient is complaining of feeling weak, he has a productive cough this morning of yellow sputum. Patient was initiated on IV Lasix in the emergency room. Past Medical History Past Medical History: COPD, Dialysis, GERD/Reflux, Hyperlipidemia, Hypertension Additional Past Medical History / Comment(s): Neuromuscular dysfunction of bladder, iron deficiency anemia, neurogenic bladder, pressure ulcers, dissection of thoracic aorta, no longer doing dialysis History of Any Multi-Drug Resistant Organisms: None Reported Past Surgical History: No Surgical Hx Reported Additional Past Surgical History / Comment(s): May 2018 thoracic aorta repair at [facility] Past Anesthesia/Blood Transfusion Reactions: No Reported Reaction Past Psychological History: No Psychological Hx Reported Smoking Status: Former smoker Past Alcohol Use History: Occasional Past Drug Use History: None Reported Medications and Allergies Home Medications Medication Instructions Recorded Confirmed Type Ipratropium/Albuterol Sulfate 1 puff INHALATION RT-TID 07/10/18 09/11/18 History [Combivent Respimat Inhaler] Acetaminophen [Tylenol 8 Hour] 650 mg PO Q6HR PRN #0 07/12/18 09/11/18 Rx Ascorbic Acid [Vitamin C] 500 mg PO DAILY #0 07/12/18 09/11/18 Rx Aspirin 81 mg PO DAILY #0 07/12/18 09/11/18 Rx Esomeprazole Magnesium 20 mg PO DAILY #0 07/12/18 09/11/18 Rx Midodrine HCl [ProAmatine] 10 mg PO Q12HR #0 07/12/18 09/11/18 Rx Multivitamins, Thera [Multivitamin 1 tab PO DAILY 07/28/18 09/11/18 History (formulary)] Ferrous Sulfate [Feosol] 325 mg PO DAILY 09/11/18 09/11/18 History Furosemide [Lasix] 40 mg PO DAILY 09/11/18 09/11/18 History Levofloxacin [Levaquin] 500 mg PO DAILY 09/11/18 09/11/18 History Potassium Chloride [Klor-Con 20] 20 meq PO DIRECTED 09/11/18 09/11/18 History Sennosides [Senokot] 8.6 mg PO BID 09/11/18 09/11/18 History Warfarin Sodium [Coumadin] 4 mg PO SUMOTUTHFRSA 09/11/18 09/11/18 History Warfarin [Coumadin] 2 mg PO WE 09/11/18 09/11/18 History Allergies Allergy/AdvReac Type Severity Reaction Status Date / Time No Known Allergies Allergy Verified 09/11/18 09:08 Physical Exam Vitals: Vital Signs Temp Pulse Pulse Resp BP BP Pulse Ox 09/12/18 08:12 94 09/12/18 08:01 98 100 09/12/18 08:00 97 16 138/84 100 09/12/18 03:13 101 H 16 09/12/18 03:01 98.7 F 101 H 16 128/90 99 09/11/18 23:43 103 H 16 09/11/18 23:41 98.9 F 103 H 16 137/89 100 09/11/18 21:14 98.8 F 97 16 141/92 100 09/11/18 21:11 98.8 F 97 18 141/92 100 09/11/18 20:00 97 16 09/11/18 16:01 99 18 139/92 100 09/11/18 16:00 98.1 F 89 18 136/81 93 L 09/11/18 14:37 96 16 139/90 98 09/11/18 13:29 93 18 131/91 100 09/11/18 10:57 90 18 130/86 98 Intake and Output 09/11/18 09/12/18 09/12/18 22:59 06:59 14:59 Output Total 1500 Balance -1500 Output: Urine 1500 Other: Voiding Method Indwelling Catheter Indwelling Catheter PHYSICAL EXAMINATION: GENERAL: 73-year-old frail looking gentleman in no acute distress at the time of my examination HEENT: Head is atraumatic, normocephalic. Pupils equal, round. Sclera anicteric. Conjunctiva are clear. Mucous membranes of the mouth are moist. Neck is supple. There elevated jugular venous pressure. Bilateral carotid bruit are heard. HEART EXAMINATION: Heart S1 S2 1 systolic murmur is heard CHEST EXAMINATION: Lungs reveal fine scattered wheezing with decreased air exchange throughout ABDOMEN: Soft, nontender. Bowel sounds are heard. No organomegaly noted. EXTREMITIES:[ 1+ peripheral pulses with 2+ evidence of peripheral edema Results 09/12/18 06:13 09/12/18 06:13 Cardiac Enzymes 09/11/18 09/11/18 Range/Units 09:00 09:00 AST 323 H (17-59) U/L Troponin I 0.074 H* (0.000-0.034) ng/mL Coagulation 09/11/18 09/12/18 Range/Units 09:00 06:13 PT 25.5 H 26.3 H (9.0-12.0) sec APTT 24.7 (22.0-30.0) sec CBC 09/11/18 09/12/18 Range/Units 09:00 06:13 WBC 11.9 H 11.2 H (3.8-10.6) k/uL RBC 4.12 L 3.87 L (4.30-5.90) m/uL Hgb 12.1 L 11.3 L (13.0-17.5) gm/dL Hct 40.2 37.6 L (39.0-53.0) % Plt Count 200 173 (150-450) k/uL Comprehensive Metabolic Panel 09/11/18 09/12/18 Range/Units 09:00 06:13 Sodium 140 138 (137-145) mmol/L Potassium 5.9 H 4.6 (3.5-5.1) mmol/L Chloride 104 103 (98-107) mmol/L Carbon Dioxide 26 29 (22-30) mmol/L BUN 50 H 49 H (9-20) mg/dL Creatinine 1.81 H 1.58 H (0.66-1.25) mg/dL Glucose 152 H 89 (74-99) mg/dL Calcium 8.8 8.4 (8.4-10.2) mg/dL AST 323 H (17-59) U/L ALT 379 H (21-72) U/L Alkaline Phosphatase 176 H (38-126) U/L Total Protein 6.2 L (6.3-8.2) g/dL Albumin 3.2 L (3.5-5.0) g/dL Current Medications Generic Name Dose Route Start Last Admin Trade Name Freq PRN Reason Stop Dose Admin Acetaminophen 650 mg 09/11/18 21:55 Tylenol Tab PO Q6HR PRN Pain Albuterol/Ipratropium 3 ml 09/11/18 22:07 09/12/18 08:01 Duoneb 0.5 Mg-3 Mg/3 Ml Soln INHALATION 3 ml RT-TID [facility] Administration Ascorbic Acid 500 mg 09/12/18 09:00 Vitamin C PO DAILY [facility] Aspirin 81 mg 09/12/18 09:00 09/12/18 08:55 Aspirin PO 81 mg DAILY HOME Administration Ferrous Sulfate 325 mg 09/12/18 12:00 09/12/18 08:55 Feosol PO 325 mg 1200 [facility] Administration Furosemide 80 mg 09/11/18 21:59 09/12/18 08:54 Lasix IV 80 mg Q8HR [facility] Administration Midodrine 10 mg 09/12/18 08:00 Proamatine PO BID@0800,1600 [facility] Multivitamins 1 each 09/12/18 09:00 09/12/18 08:55 Theragran PO 1 each DAILY HOME Administration Pantoprazole Sodium 40 mg 09/12/18 07:30 09/12/18 06:16 Protonix PO 40 mg [id number] HOME Administration Senna 8.6 mg 09/12/18 09:00 Senokot PO BID HOME Warfarin Sodium 2 mg 09/13/18 18:00 Coumadin PO We@1800 HOME Warfarin Sodium 4 mg 09/11/18 22:00 09/11/18 22:25 Coumadin PO 4 mg [id number]@1800 [facility] Administration Intake and Output 09/11/18 09/12/18 09/12/18 22:59 06:59 14:59 Output Total 1500 Balance -1500 Output: Urine 1500 Other: Voiding Method Indwelling Catheter Indwelling Catheter 09/12/18 06:13 09/12/18 06:13 EKG Interpretations (text) EKG shows a normal sinus rhythm with inferior lateral T-wave inversion Assessment and Plan Plan: Assessment and plan #1 symptoms of fever with abnormal lactic acid, elevated white blood cell count, productive sputum, yellow in color possible tracheobronchitis. Patient also has evidence of a UTI #2 congestive heart failure, LV function unknown #3 COPD #4 hyperlipidemia #5 GERD #6 history of neurogenic bladder with chronic Guzman #7 thoracic aortic aneurysm repair with stent in May of this year at [facility] #8 history of smoking, patient quit smoking in May #9 acute on chronic renal insufficiency #10 elevated liver enzymes, likely secondary to congestion from cardiac failure #11 abnormality in troponin, likely secondary to abnormal renal function Plan Patient is currently getting IV Lasix, we will obtain an echocardiogram with Doppler study, continue diuresing the patient. Patient may also need to be initiated on an antibiotic. Further recommendations to follow. DNP note has been reviewed, I agree with a documented findings and plan of care. Patient was seen and examined.
[2018-09-12] MEDS: MIDODRINE 5 MG TAB PO SCH ×2 (12:49→16:30)
[2018-09-12] MEDS: SENNOSIDES 8.6 MG TAB PO SCH ×2 (12:50→19:37)
[2018-09-12] MEDS: ASCORBIC ACID 500 MG TAB PO SCH (12:50)
[2018-09-12] MEDS: WARFARIN 2 MG TAB PO SCH (17:40)
--- NOTE | 2018-09-12 19:03 | ECHOF ---
Referral Reason:chf MEASUREMENTS -------- HEIGHT: 172.7 cm WEIGHT: 61.2 kg BP: 128/90 IVSd: 1.0 cm (0.6 - 1.1) LVIDd: 3.8 cm (3.9 - 5.3) LVPWd: 0.9 cm (0.6 - 1.1) IVSs: 1.2 cm LVIDs: 3.6 cm LVPWs: 1.4 cm LAESV Index (A-L): 24.15 ml/m Ao Diam: 2.8 cm (2.0 - 3.7) LA Diam: 3.1 cm (2.7 - 3.8) AV Cusp: 1.5 cm (1.5 - 2.6) EPSS: 3.0 cm MV E Osiel: 0.57 m/s MV DecT: 157 ms MV A Osiel: 0.71 m/s MV E/A Ratio: 0.80 RAP: 20.00 mmHg RVSP: 54.79 mmHg MV EF SLOPE: 128.96 mm/s (70 - 150) MV EXCURSION: 15.27 mm (> 18.000) FINDINGS -------- Sinus rhythm. This was a technically good study. The left ventricular size is normal. Left ventricular wall thickness is normal. There is severe g lobal hypokinesis of LV . Overall left ventricular systolic function is severely impaired with, an EF < 20%. The right ventricle is normal in size. Normal LA size by volume 22+/-6 ml/m2. The right atrial size is normal. Interatrial and interventricular septum intact. Aortic valve is trileaflet and is mildly thickened. The mitral valve leaflets are mildly thickened. Mild mitral annular calcification present. Modera te mitral regurgitation is present. Severe tricuspid regurgitation present. There is moderate pulmonary hypertension. The right ventr icular systolic pressure, as measured by Doppler, is 54.79mmHg. There is no pulmonic regurgitation present. The aortic root size is normal. The inferior vena cava is dilated with no significant inspiratory collapse which is consistent estima rj right atrial pressure of >20 mmHg. There is no pericardial effusion. CONCLUSIONS -------- 1. Sinus rhythm. 2. This was a technically good study. 3. The left ventricular size is normal. 4. Left ventricular wall thickness is normal. 5. There is severe global hypokinesis of LV . 6. Overall left ventricular systolic function is severely impaired with, an EF < 20%. 7. The right ventricle is normal in size. 8. Normal LA size by volume 22+/-6 ml/m2. 9. The right atrial size is normal. 10. Interatrial and interventricular septum intact. 11. Aortic valve is trileaflet and is mildly thickened. 12. The mitral valve leaflets are mildly thickened. 13. Mild mitral annular calcification present. 14. Moderate mitral regurgitation is present. 15. Severe tricuspid regurgitation present. 16. There is moderate pulmonary hypertension. 17. The right ventricular systolic pressure, as measured by Doppler, is 54.79mmHg. 18. There is no pulmonic regurgitation present. 19. The aortic root size is normal. 20. The inferior vena cava is dilated with no significant inspiratory collapse which is consistent es timated right atrial pressure of >20 mmHg. 21. There is no pericardial effusion. SHAREBROKER: Yumiko Flood RDCS
[2018-09-13] MEDS: PANTOPRAZOLE 40 MG TABLET PO SCH (06:05)
--- NOTE | 2018-09-13 06:35 | PN ---
PROGRESS NOTE DATE OF SERVICE: 09/12/2018 PRESENTING COMPLAINT: Short of breath. INTERVAL HISTORY: The patient admitted with CHF exacerbation, on IV Lasix. Breathing is better this morning. Cough is better. The patient is on a modified diet. Nurse informed me that the patient has been actually eating donuts, etc. at home. Overall feels better. REVIEW OF SYSTEMS: Done for constitutional, cardiovascular, GI, pulmonary and relevant findings as above. CURRENT MEDICATIONS: Reviewed that include Lasix 80 mg q.8h. PHYSICAL EXAMINATION: VITAL SIGNS: Temperature 98.1, pulse 104, respiration 20, blood pressure 111/74, pulse ox 100 percent on 3 L. GENERAL APPEARANCE: Sitting up, awake. EYES: Pupils equal. Conjunctivae normal. NECK: JVD raised. Mass not palpable. RESPIRATORY: Effort increased. LUNGS: Decreased crackles. Improved air entry. CARDIOVASCULAR: First and second sounds normal. No edema. ABDOMEN: Soft, nontender. Liver and spleen not palpable. PEG tube in place. PSYCHIATRY: Awake, answering questions. INVESTIGATIONS: White count 11.2, potassium 4.6, BUN 49, creatinine 1.58. ASSESSMENT: 1. Acute congestive heart failure exacerbation from systolic dysfunction EF less than 20%. 2. Severe tricuspid regurgitation, moderate mitral regurgitation, nonrheumatic. 3. Secondary pulmonary hypertension. 4. Chronic obstructive pulmonary disease. 5. Gastroesophageal reflux disease. 6. Hyperlipidemia. 7. Essential hypertension. 8. Chronic neurogenic bladder with chronic Guzman. 9. History of thoracic aortic aneurysm repair with stent. 10.Feeding tube in abdomen currently not being used. 11.Hyperkalemia secondary to renal failure improved. 12.Chronic kidney stage 3 from nephrosclerosis. 13.Troponin leak in setting of renal failure. The patient does not have acute coronary syndrome. 14.Dysphagia. PLAN: Continue patient on IV Lasix for another 24 hours. Repeat a chest x-ray in the morning. Overall looking patient is looking better. Patient was seen by speech therapist who will do a modified barium swallow tomorrow. The patient is on a modified diet for further assessment tomorrow. Currently, he is on a dysphagia pureed diet with honey consistency liquids. MMODL / IJN: [id number] /
[2018-09-13 06:38] LABS: Calcium 8.1 mg/dL (8.4-10.2); Potassium 2.9 mmol/L (3.5-5.1)
[2018-09-13 06:44] LABS: INR 2.7 (<1.2); Prothrombin Time 25.9 sec (9.0-12.0)
[2018-09-13] MEDS: IPRATROPIUM-ALBUTEROL 3 ML NEB INHALATION SCH ×3 (07:52→18:49)
--- NOTE | 2018-09-13 08:25 | XR ---
EXAMINATION TYPE: XR chest 2V DATE OF EXAM: 09/13/2018 COMPARISON: Prior chest x-ray 09/11/2018 HISTORY: Congestive heart failure, follow-up TECHNIQUE: Frontal and lateral views of the chest are obtained. FINDINGS: Prominent lung volumes are compatible with underlying COPD. There is a thoracic stent graft in place as on prior exam. Blunting the posterior costophrenic angles is again noted. The cardiac si lhouette size is stable, no pneumothorax, patient is post median sternotomy and there are overlying c ardiac leads. Interval improved visualization of the left hemidiaphragm, interstitium is improved. T he osseous structures are intact. IMPRESSION: Small basilar effusions. There may be some improvement in aeration, volume status.
[2018-09-13] MEDS ORDERED: Potassium Replacement Protocol 1 EACH MISC MISCELLANE PRN ×2 (08:38→09:54)
[2018-09-13] MEDS ORDERED: POTASSIUM CHLORIDE 10 MEQ in WATER FOR INJECTION 1 100ML.BAG IVPB SCH (09:00)
[2018-09-13] MEDS: SPIRONOLACTONE 25 MG TAB PO SCH (09:31)
[2018-09-13] MEDS: ASPIRIN 81 MG PO SCH (09:31)
[2018-09-13] MEDS: MULTIVITAMINS, THERA 1 EACH TAB PO SCH (09:31)
[2018-09-13] MEDS: METOPROLOL SUCCINATE (ER) 25 MG TAB.ER.24H PO SCH (09:31)
[2018-09-13] MEDS: ASCORBIC ACID 500 MG TAB PO SCH (09:31)
[2018-09-13] MEDS: MIDODRINE 5 MG TAB PO SCH ×2 (09:32→16:40)
[2018-09-13] MEDS: SENNOSIDES 8.6 MG TAB PO SCH ×2 (10:08→20:49)
[2018-09-13] MEDS: POTASSIUM CHLORIDE ER 20 MEQ TAB.ER PO SCH ×5 (10:20→18:23)
[2018-09-13] MEDS: FUROSEMIDE 10 MG/ML 10 ML VIAL IV SCH ×3 (10:21→23:14)
--- NOTE | 2018-09-13 11:32 | P.PN ---
Subjective Progress Note Date: 09/13/18 Is is a 73-year-old gentleman, past medical history significant for thoracic aortic aneurysm status post repair at [facility] in May 2018, history of hypertension, hyperlipidemia, COPD, GERD, history of neuromuscular dysfunction of his bladder with episodes of incontinence, he has a chronic Guzman catheter in place, history of nicotine dependence, patient quit smoking in May, history of pressure ulcers, malnutrition, iron deficiency anemia, he is currently at [facility] for rehab, presented to the hospital because of fever, tachycardia, and shortness of breath. Patient also has significant bilateral peripheral edema which she states is much worse than his usual, he also states he is unable to use his legs because he is so weak. Chest x-ray performed on admission here showed trace pleural effusions and bibasilar air space disease, likely atelectasis with underlying COPD, no clear-cut evidence of pulmonary vascular congestion. EKG shows a normal sinus rhythm with inferior lateral ST-T wave changes, similar to prior EKGs. Blood pressure on arrival here 124/60 with a heart rate in the 80s, 94% on 3 L of oxygen. White blood cell count on admission 14.4, hemoglobin 10.8, platelet count 197, sodium 137, potassium 6.3, BUN 44 and creatinine 1.6. Plasma lactic acid 3.4 on admission, AST 323, ALT 379 and alk phos 176, troponin 0.074, BNP level 25,100. This morning's creatinine 1.5, potassium 4.6, INR 2.7. Positive UTI. At the time of my examination this morning, patient is complaining of feeling weak, he has a productive cough this morning of yellow sputum. Patient was initiated on IV Lasix in the emergency room. 09/13/2018 Patient was seen and examined this morning sitting up in the chair bedside. Diuresed well through the night last night, creatinine today is 1.2. Echocardiogram with Doppler study was performed which revealed an ejection fraction of less than 20%, moderate mitral regurgitation and severe tricuspid regurgitation.INR 2.7, potassium 2.9. Objective - Vital Signs Vital signs: Vital Signs Temp 98 F 09/13/18 08:00 Pulse 100 09/13/18 08:07 Resp 20 09/13/18 08:00 BP 114/75 09/13/18 08:00 Pulse Ox 100 09/13/18 08:00 Intake & Output 09/12/18 09/13/18 09/13/18 18:59 06:59 18:59 Intake Total 200 240 Output Total 1650 4250 Balance -1450 -4250 240 Weight 61.235 kg 64 kg Intake: Oral 200 240 Output: Urine 1650 4250 Uretheral (Guzman) 900 Other: Voiding Method Indwelling Catheter Indwelling Catheter Indwelling Catheter # Voids 1,800 - Exam PHYSICAL EXAMINATION: GENERAL: 73-year-old frail looking gentleman in no acute distress at the time of my examination HEENT: Head is atraumatic, normocephalic. Pupils equal, round. Sclera anicteric. Conjunctiva are clear. Mucous membranes of the mouth are moist. Neck is supple. There elevated jugular venous pressure. Bilateral carotid bruit are heard. HEART EXAMINATION: Heart S1 S2 1 systolic murmur is heard CHEST EXAMINATION: Lungs reveal fine scattered wheezing with decreased air exchange throughout ABDOMEN: Soft, nontender. Bowel sounds are heard. No organomegaly noted. EXTREMITIES:[ 1+ peripheral pulses with 2+ evidence of peripheral edema - Labs CBC & Chem 7: 09/12/18 06:13 09/13/18 05:46 Labs: Abnormal Lab Results - Last 24 Hours (Table) 09/13/18 09/13/18 Range/Units 05:46 05:46 PT 25.9 H (9.0-12.0) sec INR 2.7 H (<1.2) Potassium 2.9 L (3.5-5.1) mmol/L Chloride 97 L (98-107) mmol/L Carbon Dioxide 37 H (22-30) mmol/L BUN 38 H (9-20) mg/dL Calcium 8.1 L (8.4-10.2) mg/dL Microbiology - Last 24 Hours (Table) 09/11/18 09:00 Blood Culture - Preliminary Blood No Growth after 48 hours Assessment and Plan Plan: Assessment and plan #1 symptoms of fever with abnormal lactic acid, elevated white blood cell count, productive sputum, yellow in color possible tracheobronchitis. Patient also has evidence of a UTI #2 congestive heart failure,systolic acute on chronic #4 hyperlipidemia #5 GERD #6 history of neurogenic bladder with chronic Guzman #7 thoracic aortic aneurysm repair with stent in May of this year at [facility] #8 history of smoking, patient quit smoking in May #9 acute on chronic renal insufficiency #10 elevated liver enzymes, likely secondary to congestion from cardiac failure #11 abnormality in troponin, likely secondary to abnormal renal function Plan we will replace the patient's potassium, continue current dose of IV Lasix. Start the patient on beta ross, PADDY inhibitor, and Aldactone. DNP note has been reviewed, I agree with a documented findings and plan of care. Patient was seen and examined.
--- NOTE | 2018-09-13 11:45 | FL ---
EXAMINATION TYPE: FL barium swallow w video DATE OF EXAM: 09/13/2018 MODIFIED SWALLOW / DEGLUTITION STUDY CLINICAL HISTORY: Dysphagia. TECHNIQUE: Deglutition study is performed utilizing thin liquid barium, honey and nectar thick liqui d barium, barium thick applesauce, and barium coated cracker. 2 minutes and 4 seconds of fluoroscopy time was utilized with 0 images saved as the examination was video recorded. COMPARISON: None. FINDINGS: The oral and pharyngeal phases show satisfactory initiation and propagation with all modali ties tested. Normal mastication is seen with solid modalities tested. Transient laryngeal penetratio n was seen with the thin and nectar thick consistencies improved with the chin tuck maneuver. There i s also very trace laryngeal penetration that was transient with the honey thick consistency. No aspir ation seen. Mild vallecular retention of contrast throughout the exam. IMPRESSION: Transient laryngeal penetration improved with the chin tuck maneuver without aspiration. Mild vallecular retention is also noted. Please refer to speech therapist notes for further details if necessary.
[2018-09-13] MEDS: LISINOPRIL 2.5 MG TAB PO SCH (12:29)
[2018-09-13] MEDS: FERROUS SULFATE 325 MG TAB PO SCH (12:29)
[2018-09-13] MEDS: MAGNESIUM OXIDE 400 MG TAB PO SCH ×3 (12:29→20:49)
--- NOTE | 2018-09-13 13:27 | CDI ---
Documentation Clarification Form Date: 09/13/2018 1:13:11 PM From: Yamilka Carvalho RN, CCDS Admit Date: 09/11/2018 11:00:00 AM Patient Name: Doug Pemberton Visit Number: [id number] ATTENTION: The Clinical Documentation Specialists (CDI) and [facility] Coding Staff appreciate your assistance in clarifying documentation. Please respond to the clarification below the line at the bottom and electronically sign. The CDI & [facility] Coding staff will review the response and follow-up if needed. Please note: Queries are made part of the Legal Health Record. If you have any questions, please contact the author of this message via ITS. Dr. Miguel Elias A diagnosis of UTI has been documented in the Cardiology Consult and Progress note. History/Risk Factors: 09/12 Cardiology: "Patient also has evidence of a UTI." 09/11/18 H&P: "neuromuscular bladder dysfunction, has got a chronic Guzman catheter." CKD, AAA dissection Clinical Indicators: Urinalysis: no U/A done on this admission Urine culture: not done Lab results: WBC 11.9/11.2 Treatment: Rocephin 1 gm IVP Lasix 40 mg IVP Q 12 hrs 500 cc ivf Bolus In your professional opinion, can you please clarify the etiology of the UTI, if known? UTI d/t chronic Guzman catheter UTI not related to catheter UTI ruled out Other condition, please specify Unable to determine If an infective organism is present, please specify cause and effect relationship if applicable. (Last Revision: July 2017) UTI ruled out MTDD
[2018-09-13] MEDS ORDERED: WARFARIN 2 MG TAB PO SCH (18:00)
--- NOTE | 2018-09-13 21:46 | PN ---
PROGRESS NOTE DATE OF SERVICE: September 13, 2018 PRESENTING COMPLAINT: Short of breath. INTERVAL HISTORY: The patient admitted with CHF exacerbation. Remains on IV Lasix. Breathing continues to improve. The patient did have a modified barium swallow eval this morning. Passed this test. The diet has been advanced to a regular diet with thin liquids. Sitting up on a chair. Breathing is better. REVIEW OF SYSTEMS: Done for constitutional, cardiovascular, GI, pulmonary; relevant findings as above. CURRENT MEDICATIONS: Reviewed that include: Lasix 80 mg q.8h. PHYSICAL EXAMINATION: VITAL SIGNS: Temperature 98.5. Pulse 103, respiration rate 24, blood pressure 135/88, pulse ox 95% on room air. GENERAL APPEARANCE: Sitting up, more comfortable. EYES: Pupils equal. Conjunctivae normal. NECK: JVD not raised. Mass not palpable. RESPIRATORY: Effort increased. LUNGS: Improved air entry. CARDIOVASCULAR: First and second sounds normal. No edema. ABDOMEN: Soft, nontender. Liver and spleen not palpable. PEG tube in place. PSYCHIATRY: Awake. Answering questions. INVESTIGATIONS: Chest x-ray film personally reviewed by me shows improved aeration. Decreased edema. Potassium 2.9, BUN 38, creatinine 1.23. ASSESSMENT: 1. Congestive heart failure exacerbation from systolic dysfunction, EF less than 20% with clinical improvement. 2. Severe tricuspid regurgitation moderate mitral regurgitation, nonrheumatic. 3. Secondary pulmonary hypertension. 4. Chronic obstructive pulmonary disease. 5. Gastroesophageal reflux disease. 6. Hyperlipidemia. 7. Essential hypertension. 8. Chronic neurogenic bladder with chronic Guzman. 9. History of thoracic aortic aneurysm repair with stent. 10.Feeding tube currently not being used. 11.Hyperkalemia secondary to renal failure improved. 12.Severe hypokalemia. Potassium getting replaced. 13.Chronic kidney disease stage 3 from nephrosclerosis. 14.Troponin leak in setting of renal failure. Patient does not have acute coronary syndrome. 15.Dysphagia, corrected. The patient did have a modified video swallow evaluation. The patient's diet has been advanced to normal. PLAN: The patient should be able to be switched to oral Lasix by tomorrow. Overall doing much better. Repeat labs in the morning hoping patient is able to be discharged by tomorrow. MMODL / IJN: [id number] /
[2018-09-14 06:26] LABS: African American GFR (CKD) >90 (>60 ml/min/1.73 sqM); Blood Urea Nitrogen 29 mg/dL (9-20); Calcium 8.1 mg/dL (8.4-10.2); Chloride 93 mmol/L (98-107); Glucose 92 mg/dL (74-99); Magnesium 1.7 mg/dL (1.6-2.3); Potassium 3.2 mmol/L (3.5-5.1); Sodium 140 mmol/L (137-145)
[2018-09-14] MEDS: PANTOPRAZOLE 40 MG TABLET PO SCH (06:31)
[2018-09-14 06:38] LABS: INR 2.3 (<1.2); Prothrombin Time 21.9 sec (9.0-12.0)
[2018-09-14 06:58] LABS: Anion Gap 8 mmol/L; Carbon Dioxide 39 mmol/L (22-30)
[2018-09-14] MEDS: IPRATROPIUM-ALBUTEROL 3 ML NEB INHALATION SCH ×3 (08:36→19:45)
[2018-09-14] MEDS: SENNOSIDES 8.6 MG TAB PO SCH ×2 (08:42→20:56)
[2018-09-14] MEDS: LISINOPRIL 2.5 MG TAB PO SCH (08:42)
[2018-09-14] MEDS: FERROUS SULFATE 325 MG TAB PO SCH (08:42)
[2018-09-14] MEDS: ASCORBIC ACID 500 MG TAB PO SCH (08:42)
[2018-09-14] MEDS: MIDODRINE 5 MG TAB PO SCH ×2 (08:42→16:30)
[2018-09-14] MEDS: METOPROLOL SUCCINATE (ER) 25 MG TAB.ER.24H PO SCH (08:42)
[2018-09-14] MEDS: SPIRONOLACTONE 25 MG TAB PO SCH (08:43)
[2018-09-14] MEDS: MAGNESIUM OXIDE 400 MG TAB PO SCH ×3 (08:43→20:56)
[2018-09-14] MEDS: ASPIRIN 81 MG PO SCH (08:43)
[2018-09-14] MEDS: FUROSEMIDE 10 MG/ML 10 ML VIAL IV SCH (08:43)
[2018-09-14] MEDS: MULTIVITAMINS, THERA 1 EACH TAB PO SCH (08:43)
--- NOTE | 2018-09-14 10:32 | CDI ---
Documentation Clarification Form Date: 09/14/2018 10:19:00 AM From: Yamilka Carvalho RN, CCDS Admit Date: 09/11/2018 11:00:00 AM Patient Name: Doug Pemberton Visit Number: [id number] ATTENTION: The Clinical Documentation Specialists (CDI) and [facility] Coding Staff appreciate your assistance in clarifying documentation. Please respond to the clarification below the line at the bottom and electronically sign. The CDI & [facility] Coding staff will review the response and follow-up if needed. Please note: Queries are made part of the Legal Health Record. If you have any questions, please contact the author of this message via ITS. Dr. Miguel Elias History/Risk Factors: HPI: "Malnutrition", depression Clinical Indicators: Pt has poor intake at 0-25% with difficulty swallowing, dysphagia Meds: Coumadin, Diuretic Patients weight is 47.5 kg Patients height is 68 in Calculated BMI is 15.9 kg/m2 Dietary Consult: Underweight 88% of IBW Treatments: Tube Feedings Jevity 1.5 Magic Cups TID Nutritional Education: provided 09/12/14- Heart failure and low sodium diet Dietary Consult: Completed 09/12/14 Pt is on Soft diet with honey thickened liquids. Meds: Multivitamin In order to capture the severity of condition associated with patient BMI of 15.9, a clinical diagnosis needs to be documented by the physician. Please clarify: Cachexia Protein Calorie Malnutrition (please indicate severity) Mild Moderate Severe Other Unable to determine (Last Revision: July 2017) moderate protain calorie malnutrition MTDD
--- NOTE | 2018-09-14 13:29 | P.PN ---
Subjective Progress Note Date: 09/14/18 Is is a 73-year-old gentleman, past medical history significant for thoracic aortic aneurysm status post repair at [facility] in May 2018, history of hypertension, hyperlipidemia, COPD, GERD, history of neuromuscular dysfunction of his bladder with episodes of incontinence, he has a chronic Guzman catheter in place, history of nicotine dependence, patient quit smoking in May, history of pressure ulcers, malnutrition, iron deficiency anemia, he is currently at [facility] for rehab, presented to the hospital because of fever, tachycardia, and shortness of breath. Patient also has significant bilateral peripheral edema which she states is much worse than his usual, he also states he is unable to use his legs because he is so weak. Chest x-ray performed on admission here showed trace pleural effusions and bibasilar air space disease, likely atelectasis with underlying COPD, no clear-cut evidence of pulmonary vascular congestion. EKG shows a normal sinus rhythm with inferior lateral ST-T wave changes, similar to prior EKGs. Blood pressure on arrival here 124/60 with a heart rate in the 80s, 94% on 3 L of oxygen. White blood cell count on admission 14.4, hemoglobin 10.8, platelet count 197, sodium 137, potassium 6.3, BUN 44 and creatinine 1.6. Plasma lactic acid 3.4 on admission, AST 323, ALT 379 and alk phos 176, troponin 0.074, BNP level 25,100. This morning's creatinine 1.5, potassium 4.6, INR 2.7. Positive UTI. At the time of my examination this morning, patient is complaining of feeling weak, he has a productive cough this morning of yellow sputum. Patient was initiated on IV Lasix in the emergency room. 09/13/2018 Patient was seen and examined this morning sitting up in the chair bedside. Diuresed well through the night last night, creatinine today is 1.2. Echocardiogram with Doppler study was performed which revealed an ejection fraction of less than 20%, moderate mitral regurgitation and severe tricuspid regurgitation.INR 2.7, potassium 2.9. 09/14/2018 Patient was seen and examined this morning, sitting up in his chair at bedside, feeling significantly better overall, breathing is stable, his color is much improved today. Blood pressure 110/60 with a heart rate of 90, 95% on room air. Pro time 21.9 with an INR of 2.3, sodium 140, potassium 3.2, BUN 29 and creatinine 0.9. Magnesium 1.7. We will discontinue the IV Lasix today and start the patient on oral diuretics, replace potassium and magnesium. Objective - Vital Signs Vital signs: Vital Signs Temp 97.1 F L 09/14/18 08:00 Pulse 100 09/14/18 12:10 Resp 16 09/14/18 12:00 BP 110/67 09/14/18 12:00 Pulse Ox 95 09/14/18 12:00 Intake & Output 09/13/18 09/14/18 09/14/18 18:59 06:59 18:59 Intake Total 1080 720 240 Output Total 1475 4100 2900 Balance -395 -5680 -2660 Weight 47.5 kg Intake: Oral 1080 720 240 Output: Urine 1475 4100 2900 Uretheral (Guzman) 1800 Other: Voiding Method Indwelling Catheter Indwelling Catheter Indwelling Catheter # Bowel Movements 1 - Exam PHYSICAL EXAMINATION: GENERAL: 73-year-old frail looking gentleman in no acute distress at the time of my examination HEENT: Head is atraumatic, normocephalic. Pupils equal, round. Sclera anicte areli. Conjunctiva are clear. Mucous membranes of the mouth are moist. Neck is supple. There elevated jugular venous pressure. Bilateral carotid bruit are heard. HEART EXAMINATION: Heart S1 S2 1 systolic murmur is heard CHEST EXAMINATION: Lungs reveal improvement in air entry bilaterally. ABDOMEN: Soft, nontender. Bowel sounds are heard. No organomegaly noted. EXTREMITIES:[ 1+ peripheral pulses with trace evidence of peripheral edema - Labs CBC & Chem 7: 09/12/18 06:13 09/14/18 05:38 Labs: Abnormal Lab Results - Last 24 Hours (Table) 09/13/18 09/14/18 09/14/18 Range/Units 15:12 05:38 05:38 PT 21.9 H (9.0-12.0) sec INR 2.3 H (<1.2) Potassium 3.4 L 3.2 L (3.5-5.1) mmol/L Chloride 93 L (98-107) mmol/L Carbon Dioxide 39 H (22-30) mmol/L BUN 29 H (9-20) mg/dL Calcium 8.1 L (8.4-10.2) mg/dL Microbiology - Last 24 Hours (Table) 09/11/18 09:00 Blood Culture - Preliminary Blood No Growth after 72 hours Assessment and Plan Plan: Assessment and plan #1 symptoms of fever with abnormal lactic acid, elevated white blood cell count, productive sputum, yellow in color possible tracheobronchitis. Patient also has evidence of a UTI #2 congestive heart failure,systolic acute on chronic #4 hyperlipidemia #5 GERD #6 history of neurogenic bladder with chronic Guzman #7 thoracic aortic aneurysm repair with stent in May of this year at [facility] #8 history of smoking, patient quit smoking in May #9 acute on chronic renal insufficiency #10 elevated liver enzymes, likely secondary to congestion from cardiac failure #11 abnormality in troponin, likely secondary to abnormal renal function Plan we will replace the patient's potassium, replace magnesium, discontinue IV Lasix and change the patient over to oral diuretics today. DNP note has been reviewed, I agree with a documented findings and plan of care. Patient was seen and examined.
[2018-09-14 14:55] VITALS: BMI 15.9
[2018-09-14] MEDS ORDERED: POTASSIUM CHLORIDE ER 20 MEQ TAB.ER PO STA (16:06)
[2018-09-14] MEDS: FUROSEMIDE 20 MG TAB PO SCH (16:30)
[2018-09-14] MEDS: WARFARIN 2 MG TAB PO SCH (16:30)
[2018-09-14] MEDS ORDERED: Potassium Replacement Protocol 1 EACH MISC MISCELLANE PRN (23:12)
[2018-09-15] MEDS: POTASSIUM CHLORIDE ER 20 MEQ TAB.ER PO SCH ×2 (00:03→01:25)
[2018-09-15 05:02] VITALS: RESP 16; TEMP 97.8
[2018-09-15] MEDS: PANTOPRAZOLE 40 MG TABLET PO SCH (06:30)
[2018-09-15 06:39] LABS: INR 1.8 (<1.2); Prothrombin Time 18.2 sec (9.0-12.0)
[2018-09-15 06:45] LABS: African American GFR (CKD) >90 (>60 ml/min/1.73 sqM); Anion Gap 6 mmol/L; Blood Urea Nitrogen 26 mg/dL (9-20); Calcium 8.4 mg/dL (8.4-10.2); Carbon Dioxide 37 mmol/L (22-30); Chloride 94 mmol/L (98-107); Glucose 97 mg/dL (74-99); Sodium 137 mmol/L (137-145)
[2018-09-15 06:49] LABS: Anisocytosis Slight; Basophils % (A) 0 %; Eosinophils # (A) 0.2 k/uL (0-0.7); Eosinophils % (A) 2 %; HCT 37.3 % (39.0-53.0); HGB 11.5 gm/dL (13.0-17.5); Hypochromasia Moderate; Lymphocytes # (A) 1.7 k/uL (1.0-4.8); Lymphocytes % (A) 15 %; MCH 29.5 pg (25.0-35.0); MCHC 30.9 g/dL (31.0-37.0); MCV 95.5 fL (80.0-100.0); Macrocytosis Slight; Mean Platelet Volume 7.7; Monocytes # (A) 0.8 k/uL (0-1.0); Monocytes % (A) 7 %; Neutrophils # (A) 8.1 k/uL (1.3-7.7); Neutrophils % (A) 73 %; Platelet Count 269 k/uL (150-450); WBC 11.2 k/uL (3.8-10.6)
[2018-09-15] MEDS: IPRATROPIUM-ALBUTEROL 3 ML NEB INHALATION SCH ×3 (07:48→19:23)
[2018-09-15] MEDS: FUROSEMIDE 20 MG TAB PO SCH (08:02)
[2018-09-15] MEDS: METOPROLOL SUCCINATE (ER) 25 MG TAB.ER.24H PO SCH (08:02)
[2018-09-15] MEDS: ASCORBIC ACID 500 MG TAB PO SCH (08:03)
[2018-09-15] MEDS: SPIRONOLACTONE 25 MG TAB PO SCH (08:03)
[2018-09-15] MEDS: MULTIVITAMINS, THERA 1 EACH TAB PO SCH (08:03)
[2018-09-15] MEDS: MAGNESIUM OXIDE 400 MG TAB PO SCH ×2 (08:03→16:10)
[2018-09-15] MEDS: SENNOSIDES 8.6 MG TAB PO SCH (08:03)
[2018-09-15] MEDS: LISINOPRIL 2.5 MG TAB PO SCH (08:03)
[2018-09-15] MEDS: ASPIRIN 81 MG PO SCH (08:03)
[2018-09-15] MEDS: MIDODRINE 5 MG TAB PO SCH ×2 (08:03→16:10)
[2018-09-15] MEDS: FERROUS SULFATE 325 MG TAB PO SCH (08:03)
--- NOTE | 2018-09-15 16:00 | P.PN ---
Subjective Progress Note Date: 09/14/18 Principal diagnosis: Acute on chronic systolic CHF UTI Acute tracheobronchitis 73-year-old gentleman, past medical history significant for thoracic aortic aneurysm status post repair at [facility] in May 2018, history of hypertension, hyperlipidemia, COPD, GERD, history of neuromuscular dysfunction of his bladder with episodes of incontinence, he has a chronic Guzman catheter in place, history of nicotine dependence, patient quit smoking in May, history of pressure ulcers, malnutrition, iron deficiency anemia, he is currently at [facility] for rehab, presented to the hospital because of fever, tachycardia, and shortness of breath. Patient also has significant bilateral peripheral edema which she states is much worse than his usual, he al so states he is unable to use his legs because he is so weak. Chest x-ray performed on admission here showed trace pleural effusions and bibasilar air space disease, likely atelectasis with underlying COPD, no clear-cut evidence of pulmonary vascular congestion. EKG shows a normal sinus rhythm with inferior lateral ST-T wave changes, similar to prior EKGs. Blood pressure on arrival here 124/60 with a heart rate in the 80s, 94% on 3 L of oxygen. White blood cell count on admission 14.4, hemoglobin 10.8, platelet count 197, sodium 137, potassium 6.3, BUN 44 and creatinine 1.6. Plasma lactic acid 3.4 on admission, AST 323, ALT 379 and alk phos 176, troponin 0.074, BNP level 25,100. This mo rning's creatinine 1.5, potassium 4.6, INR 2.7. Positive UTI. At the time of my examination this morning, patient is complaining of feeling weak, he has a productive cough this morning of yellow sputum. Patient was initiated on IV Lasix in the emergency room. 09/14/2018 Patient was seen and examined this morning, sitting up in his chair at bedside, feeling significantly better overall, breathing is stable, his color is much improved today. Blood pressure 110/60 with a heart rate of 90, 95% on room air. Pro time 21.9 with an INR of 2.3, sodium 140, potassium 3.2, BUN 29 and creatinine 0.9. Magnesium 1.7. We will discontinue the IV Lasix today and start the patient on oral diuretics, replace potassium and magnesium. Objective - Vital Signs Vital signs: Vital Signs Temp 97.1 F L 09/14/18 08:00 Pulse 96 09/14/18 08:48 Resp 18 09/14/18 11:45 BP 111/57 09/14/18 08:00 Pulse Ox 95 09/14/18 08:00 Intake & Output 09/13/18 09/14/18 09/14/18 18:59 06:59 18:59 Intake Total 1080 720 240 Output Total 1475 4100 2900 Balance -395 -3380 -2660 Weight 47.5 kg Intake: Oral 1080 720 240 Output: Urine 1475 4100 2900 Uretheral (Guzman) 1800 Other: Voiding Method Indwelling Catheter Indwelling Catheter Indwelling Catheter # Bowel Movements 1 - Exam PHYSICAL EXAMINATION: GENERAL: The patient is alert and oriented x3, not in any acute distress. Well developed, well nourished. HEENT: Pupils are round and equally reacting to light. EOMI. No scleral icterus. No conjunctival pallor. Normocephalic, atraumatic. No pharyngeal erythema. No thyromegaly. CARDIOVASCULAR: S1 and S2 present. No murmurs, rubs, or gallops. PULMONARY: Chest is clear to auscultation, no wheezing or crackles. ABDOMEN: Soft, nontender, nondistended, normoactive bowel sounds. No palpable or ganomegaly. MUSCULOSKELETAL: No joint swelling or deformity. EXTREMITIES: No cyanosis, clubbing, or pedal edema. NEUROLOGICAL: Gross neurological examination did not reveal any focal deficits. SKIN: No rashes. - Labs CBC & Chem 7: 09/15/18 05:51 09/15/18 05:51 Labs: Abnormal Lab Results - Last 24 Hours (Table) 09/13/18 09/14/18 09/14/18 Range/Units 15:12 05:38 05:38 PT 21.9 H (9.0-12.0) sec INR 2.3 H (<1.2) Potassium 3.4 L 3.2 L (3.5-5.1) mmol/L Chloride 93 L (98-107) mmol/L Carbon Dioxide 39 H (22-30) mmol/L BUN 29 H (9-20) mg/dL Calcium 8.1 L (8.4-10.2) mg/dL Microbiology - Last 24 Hours (Table) 09/11/18 09:00 Blood Culture - Preliminary Blood No Growth after 72 hours Assessment and Plan Assessment: #1 symptoms of fever with abnormal lactic acid, elevated white blood cell count, productive sputum, yellow in color possible tracheobronchitis. Patient also has evidence of a UTI #2 congestive heart failure,systolic acute on chronic #4 hyperlipidemia #5 GERD #6 history of neurogenic bladder with chronic Guzman #7 thoracic aortic aneurysm repair with stent in May of this year at [facility] #8 history of smoking, patient quit smoking in May #9 acute on chronic renal insufficiency #10 elevated liver enzymes, likely secondary to congestion from cardiac failure #11 abnormality in troponin, likely secondary to abnormal renal function Time with Patient: Greater than 30
--- NOTE | 2018-09-15 16:02 | P.DS ---
Providers Date of admission: 09/11/18 11:00 Expected date of discharge: 09/15/18 Attending physician: Miguel Elias Consults: 09/11/18 10:38 Consult Physician Routine Consulting Provider: Prudencio Loja Consult Reason/Comments: chf Do you want consulting provider notified?: Yes Primary care physician: [facility] Course: 73-year-old gentleman, past medical history significant for thoracic aortic aneurysm status post repair at [facility] in May 2018, history of hypertension, hyperlipidemia, COPD, GERD, history of neuromuscular dysfunction of his bladder with episodes of incontinence, he has a chronic Guzman catheter in place, history of nicotine dependence, patient quit smoking in May, history of pressure ulcers, malnutrition, iron deficiency anemia, he is currently at [facility] for rehab, presented to the hospital because of fever, tachycardia, and shortness of breath. Patient also has significant bilateral peripheral edema which she states is much worse than his usual, he also states he is unable to use his legs because he is so weak. Chest x-ray performed on admission here showed trace pleural effusions and bibasilar air space disease, likely atelectasis with underlying COPD, no clear-cut evidence of pulmonary vascular congestion. EKG shows a normal sinus rhythm with inferior lateral ST-T wave changes, similar to prior EKGs. Blood pressure on arrival here 124/60 with a heart rate in the 80s, 94% on 3 L of oxygen. White blood cell count on admission 14.4, hemoglobin 10.8, platelet count 197, sodium 137, pot assium 6.3, BUN 44 and creatinine 1.6. Plasma lactic acid 3.4 on admission, AST 323, ALT 379 and alk phos 176, troponin 0.074, BNP level 25,100. This morning's creatinine 1.5, potassium 4.6, INR 2.7. Positive UTI. At the time of my examination this morning, patient is complaining of feeling weak, he has a productive cough this morning of yellow sputum. Patient was initiated on IV Lasix in the emergency room. 09/13/2018 Patient was seen and examined this morning sitting up in the chair bedside. Diuresed well through the night last night, creatinine today is 1.2. Echocardiogram with Doppler study was performed which revealed an ejection fraction of less than 20%, moderate mitral regurgitation and severe tricuspid regurgitation.INR 2.7, potassium 2.9. 09/14/2018 Patient was seen and examined this morning, sitting up in his chair at bedside, feeling significantly better overall, breathing is stable, his color is much improved today. Blood pressure 110/60 with a heart rate of 90, 95% on room air. Pro time 21.9 with an INR of 2.3, sodium 140, potassium 3.2, BUN 29 and creatinine 0.9. Magnesium 1.7. We will discontinue the IV Lasix today and start the patient on oral diuretics, replace potassium and magnesium. 09/15/2018; patient remains clinically stable and is being discharged home on oral diuretics and plan to continue all current medications; social work/case management in process of making an appointment for the patient for outpatient follow-up with the PCP PHYSICAL EXAMINATION: GENERAL: 73-year-old frail looking gentleman in no acute distress at the time of my examination HEENT: Head is atraumatic, normocephalic. Pupils equal, round. Sclera anicteric. Conjunctiva are clear. Mucous membranes of the mouth are moist. Neck is supple. There elevated jugular venous pressure. Bilateral carotid bruit are heard. HEART EXAMINATION: Heart S1 S2 1 systolic murmur is heard CHEST EXAMINATION: Lungs reveal improvement in air entry bilaterally. ABDOMEN: Soft, nontender. Bowel sounds are heard. No organomegaly noted. EXTREMITIES:[ 1+ peripheral pulses with trace evidence of peripheral edema Patient Condition at Discharge: Fair Plan - Discharge Summary Discharge Rx Participant: No New Discharge Prescriptions: New Spironolactone [Aldactone] 25 mg PO DAILY #30 tab Furosemide [Lasix] 60 mg PO DAILY 30 Days tab Magnesium Oxide [Mag-Ox] 400 mg PO TID #30 tab Metoprolol Succinate (ER) [Toprol XL] 12.5 mg PO DAILY #30 tab.er.24h Lisinopril [Zestril] 2.5 mg PO DAILY #30 tab Warfarin [Coumadin] 4 mg PO SuMoTuThFrSa@1800 #30 tab Warfarin [Coumadin] 2 mg PO We@1800 #30 tab Continue Aspirin 81 mg PO DAILY #0 Ascorbic Acid [Vitamin C] 500 mg PO DAILY #0 Multivitamins, Thera [Multivitamin (formulary)] 1 tab PO DAILY Ipratropium/Albuterol Sulfate [Combivent Respimat Inhaler] 1 puff INHALATION RT-TID #1 mist.inhal Esomeprazole Magnesium 20 mg PO DAILY #30 capsule. Ferrous Sulfate [Iron (65 MG Elemental)] 325 mg PO DAILY #30 tab Potassium Chloride [Klor-Con 20] 20 meq PO DIRECTED #30 tab.er.prt Levofloxacin [Levaquin] 500 mg PO DAILY #7 tab Midodrine HCl [ProAmatine] 10 mg PO Q12HR #60 tablet Sennosides [Senokot] 8.6 mg PO BID #30 tab Discontinued Acetaminophen [Tylenol 8 Hour] 650 mg PO Q6HR PRN #0 PRN Reason: Pain Warfarin [Coumadin] 2 mg PO WE Warfarin Sodium [Coumadin] 4 mg PO SUMOTUTHFRSA Discharge Medication List Ascorbic Acid [Vitamin C] 500 mg PO DAILY #0 07/12/18 [Rx] Aspirin 81 mg PO DAILY #0 07/12/18 [Rx] Multivitamins, Thera [Multivitamin (formulary)] 1 tab PO DAILY 07/28/18 [History] Furosemide [Lasix] 60 mg PO DAILY 30 Days tab 09/14/18 [Rx] Lisinopril [Zestril] 2.5 mg PO DAILY #30 tab 09/14/18 [Rx] Magnesium Oxide [Mag-Ox] 400 mg PO TID #30 tab 09/14/18 [Rx] Metoprolol Succinate (ER) [Toprol XL] 12.5 mg PO DAILY #30 tab.er.24h 09/14/18 [Rx] Spironolactone [Aldactone] 25 mg PO DAILY #30 tab 09/14/18 [Rx] Esomeprazole Magnesium 20 mg PO DAILY #30 capsule. 09/15/18 [Rx] Ferrous Sulfate [Iron (65 MG Elemental)] 325 mg PO DAILY #30 tab 09/15/18 [Rx] Ipratropium/Albuterol Sulfate [Combivent Respimat Inhaler] 1 puff INHALATION RT- TID #1 mist.inhal 09/15/18 [Rx] Levofloxacin [Levaquin] 500 mg PO DAILY #7 tab 09/15/18 [Rx] Midodrine HCl [ProAmatine] 10 mg PO Q12HR #60 tablet 09/15/18 [Rx] Potassium Chloride [Klor-Con 20] 20 meq PO DIRECTED #30 tab.er.prt 09/15/18 [Rx] Sennosides [Senokot] 8.6 mg PO BID #30 tab 09/15/18 [Rx] Warfarin [Coumadin] 2 mg PO We@1800 #30 tab 09/15/18 [Rx] Warfarin [Coumadin] 4 mg PO SuMoTuThFrSa@1800 #30 tab 09/15/18 [Rx] Follow up Appointment(s)/Referral(s): [facility] [NON-STAFF] - As Needed (hospital bed, nebulizer, wheelchair) [facility], [NON-STAFF] - Leyla Escobar MD [STAFF PHYSICIAN] - 09/25/18 11:30 am Ozzy Padilla MD [REFERRING] - 09/18/18 2:30 pm (No morning appointments available. Tuesday.) Patient Instructions/Handouts: Heart Failure (DC), Guzman Catheter Placement and Care (DC), Low-Sodium Diet (DC) Activity/Diet/Wound Care/Special Instructions: Pt doesn't have a primary care doctor. PEG tube removal will be discussed in future follow up appointments. This can be done in office or as outpatient procedure. Catheter will remain in place and be decided on by primary physician or urologist. DAUGHTER MARCELO WILL BE HERE AROUND 6PM (TUESDAY) to pick patient up. Kaveh and Tonie primary care givers (Son and daughter in law). Tonie's number is [phone]. Discharge Disposition: HOME SELF-CARE
--- NOTE | 2018-09-15 16:04 | P.PN ---
Subjective Progress Note Date: 09/15/18 This is a 73-year-old gentleman with history of thoracic aortic aneurysm repair, hypertension, hyperlipidemia COPD who was admitted to the hospital with bilateral pedal edema and increasing shortness of breath. His echo [place] showed less than 20% ejection fraction with evidence of severe tricuspid regu rgitation, moderate mitral regurgitation and also moderate pulmonary hypertension. Patient has been on aspirin, Lasix, lisinopril and metoprolol. Patient seemed to be responding well to therapy. He is less short of breath. Tolerating activity Objective - Vital Signs Vital signs: Vital Signs Temp 97.8 F 09/15/18 04:59 Pulse 110 H 09/15/18 11:53 Resp 16 09/15/18 11:53 BP 128/73 09/15/18 11:53 Pulse Ox 98 09/15/18 11:53 Intake & Output 09/14/18 09/15/18 09/15/18 18:59 06:59 18:59 Intake Total 240 200 480 Output Total 2900 850 Balance -2660 -650 480 Weight 47.5 kg 48 kg Intake: Oral 240 200 480 Output: Urine 2900 850 Other: Voiding Method Indwelling Catheter Indwelling Catheter Indwelling Catheter # Bowel Movements 1 - Exam GENERAL EXAM: Patient is alert and oriented and doesn't appear to be in any acute distress HEENT: Normocephalic. Normal reaction of pupils, equal size, normal range of extraocular motion. No erythema or exudates in the throat. NECK: No masses, no nuchal rigidity. CHEST: No chest wall deformity. LUNGS: Equal air entry with no crackles or wheeze. HEART: S1 and S2 normal. Distant heart sounds ABDOMEN: No hepatosplenomegaly, normal bowel sounds, no guarding or rigidity. SKIN: No rashes CENTRAL NERVOUS SYSTEM: No focal deficits. EXTREMITIES: Resolving edema - Labs CBC & Chem 7: 09/15/18 05:51 09/15/18 05:51 Labs: Abnormal Lab Results - Last 24 Hours (Table) 09/14/18 09/15/18 09/15/18 Range/Units 22:01 05:51 05:51 WBC (3.8-10.6) k/uL RBC (4.30-5.90) m/uL Hgb (13.0-17.5) gm/dL Hct (39.0-53.0) % MCHC (31.0-37.0) g/dL RDW (11.5-15.5) % Neutrophils # (1.3-7.7) k/uL PT 18.2 H (9.0-12.0) sec INR 1.8 H (<1.2) Potassium 3.4 L (3.5-5.1) mmol/L Chloride 94 L (98-107) mmol/L Carbon Dioxide 37 H (22-30) mmol/L BUN 26 H (9-20) mg/dL 09/15/18 Range/Units 05:51 WBC 11.2 H (3.8-10.6) k/uL RBC 3.90 L (4.30-5.90) m/uL Hgb 11.5 L (13.0-17.5) gm/dL Hct 37.3 L (39.0-53.0) % MCHC 30.9 L (31.0-37.0) g/dL RDW 19.0 H (11.5-15.5) % Neutrophils # 8.1 H (1.3-7.7) k/uL PT (9.0-12.0) sec INR (<1.2) Potassium (3.5-5.1) mmol/L Chloride (98-107) mmol/L Carbon Dioxide (22-30) mmol/L BUN (9-20) mg/dL Microbiology - Last 24 Hours (Table) 09/11/18 09:00 Blood Culture - Preliminary Blood No Growth after 96 hours Assessment and Plan Plan: This patient is admitted with cardiomyopathy and congestive heart failure. Patient also has a history of aneurysm repair. He follows with his own leather cutter. We'll continue his current medical therapy. Increase activity. Possible discharge within next 24-48 hours.
[2018-09-15] MEDS: WARFARIN 2 MG TAB PO SCH (16:10)
[2018-09-15 16:14] VITALS: BP 136/77
[2018-09-15 19:35] VITALS: PULSE 104
--- NOTE | 2018-09-18 11:52 | CDI ---
Sepsis present on admission sec to severe ac tracheobronchitis Documentation Clarification Form Date: 09/18/18 From: Radha Auguste Phone: If you have a question regarding this query, please contact Fiona Ye at [phone] between 8am and 5pm. Admit Date: 09/11/2018 11:00:00 AM Patient Name: Doug Pemberton Visit Number: [id number] Discharge Date: 09/15/2018 6:45:00 PM ATTENTION: The Clinical Documentation Specialists (CDI) and [facility] Coding Staff appreciate your assistance in clarifying documentation. Please respond to the clarification below the line at the bottom and electronically sign. The CDI & [facility] Coding staff will review the response and follow-up if needed. Please note: Queries are made part of the Legal Health Record. If you have any questions, please contact the author of this message via ITS. Dr. More Duff The patient presented with shortness of breath, cough and congestion. Per the ER report the patient had sepsis and UTI on admission. History/Risk Factors: Per subsequent documentation the UTI was ruled out but patient was found to have possible acute tracheobronchitis. Clinical Indicators: Elevated WBC, elevated lactic acid and fever WBC: 11.9 Lactic acid: 3.4 Blood cultures: No growth. Vitals signs on admission: T. 97.1 on admit up to 100.0 on 09/12, P. 89 on admit up to 102 on 09/12, R. 22, BP 124/68 Treatment: Antibiotics: IV Rocephin 1000 mg x 1, Sent home on Levaquin IV Bolus: 1/2 Liter IV bolus In your professional opinion, please clarify if these findings signify one of the following conditions, whether the condition is POA, and cause, if known: Sepsis ruled out SIRS, without underlying infectious process Sepsis Severe Sepsis Septic Shock Other, please specify Unable to determine Present on Admission Yes No Cont. Identify the (suspected) organism Link or clarify if there is associated (due to/with): Organ failure Shock MTDD
== END 2018-09-15 18:45 | disposition home or self-care (01) | DRG 871 ==
LOC: EC 08:31 → 3SCARD 11:00
PROVIDERS: ADMIT Hospitalist; ATTEND Hospitalist
DX: A41.9 Sepsis, unspecified organism (principal); I50.23 Acute on chronic systolic (congestive) heart failure; I13.0 Hypertensive heart and chronic kidney disease with heart failure and stage 1 through stage 4 chronic kidney disease, or unspecified chronic kidney disease; J44.0 Chronic obstructive pulmonary disease with (acute) lower respiratory infection; N17.9 Acute kidney failure, unspecified; E44.0 Moderate protein-calorie malnutrition; Z68.1 Body mass index [BMI] 19.9 or less, adult; I42.9 Cardiomyopathy, unspecified; E87.5 Hyperkalemia; I27.29 Other secondary pulmonary hypertension; I36.1 Nonrheumatic tricuspid (valve) insufficiency; J20.9 Acute bronchitis, unspecified; N31.9 Neuromuscular dysfunction of bladder, unspecified; R13.10 Dysphagia, unspecified; I34.0 Nonrheumatic mitral (valve) insufficiency; N18.3 Chronic kidney disease, stage 3 (moderate); E78.5 Hyperlipidemia, unspecified; E87.6 Hypokalemia; K21.9 Gastro-esophageal reflux disease without esophagitis; Z79.01 Long term (current) use of anticoagulants; Z79.82 Long term (current) use of aspirin; Z79.899 Other long term (current) drug therapy; Z87.891 Personal history of nicotine dependence; Z87.11 Personal history of peptic ulcer disease
CPT/HCPCS: 36415; 71046; 74230; 80048; 80053; 81001; 83605; 83735; 83880; 84132; 84484; 85025; 85610; 85730; 87040; 87077; 87086; 87186; 93005; 93306; 94640; 94760; 96361; 96374; 96375; 96376; 99291

== ENCOUNTER → 2018-10-09 | Outpatient (CLI) | payer MEDICARE, OTHER ==
--- NOTE | 2018-10-09 16:52 | FL ---
EXAMINATION TYPE: FL barium swallow w video DATE OF EXAM: 10/09/2018 COMPARISON: NONE HISTORY: Dysphasia TECHNIQUE: Fluoroscopy. FINDINGS: Fluoroscopic guidance was provided for the procedure performed in conjunction with [facility] pathology department. Please see complete report forthcoming from the Speech Pathology departmen t. Various consistencies from thin liquid to solids were administered. Fluoroscopy time 2 minutes 13 seconds Number of images: 0. No aspiration or penetration was evident. Some minimal penetration with thin and nectar thick liquids with normal swallowing was resolved with chin tuck method. No significant pooling was observed in the vallecula. There was normal propulsion of the bolus. IMPRESSION: 1. Minimal penetration with thin nectar thick liquids without aspiration resolved with chin tuck meth od.
== END | disposition home or self-care (01) ==
LOC: RADFLMAIN 11:17
PROVIDERS: ATTEND Surgery
DX: R13.10 Dysphagia, unspecified (principal)
CPT/HCPCS: 74230

== ENCOUNTER 2018-11-12 00:09 | Emergency (ER) | payer MEDICARE, OTHER ==
[2018-11-12 00:28] VITALS: RESP 18
[2018-11-12 02:02] LABS: Appearance,Urine Clear (Clear); Bacteria,Urine Many /hpf; Bilirubin,Urine Negative (Negative); Blood,Urine Negative (Negative); Color,Urine Yellow; Glucose,Urine (UA) Negative (Negative); Hyaline Casts,Urine 15 /lpf (0-2); Ketones,Urine Negative (Negative); Leukocyte Esterase,Urine Moderate (Negative); Nitrite,Urine Negative (Negative); Protein,Urine Negative (Negative); Specific Gravity,Urine 1.011 (1.001-1.035); Urobilinogen,Urine <2.0 mg/dL (<2.0); WBC,Urine 15 /hpf (0-5)
[2018-11-12] MEDS ORDERED: cefTRIAXone 1,000 MG VIAL (IM USE) IM STA (02:10)
[2018-11-12] MEDS ORDERED: CEPHALEXIN 500MG STARTER PACK 4 CAP BTL PO STA (02:10)
--- NOTE | 2018-11-12 02:25 | ED ---
General Adult HPI - General Source: patient, family, RN notes reviewed, old records reviewed Mode of arrival: ambulatory Limitations: no limitations <Dhruv Dan - Last Filed: 11/12/18 02:22> <Natividad Vieira - Last Filed: 11/12/18 07:14> - General Chief complaint: Urogenital Stated complaint: Abd Pain Time Seen by Provider: 11/12/18 00:44 - History of Present Illness Initial comments: 73-year-old male patient past medical history of COPD, hypertension, hyperlipidemia, urinary retention, right inguinal hernia presents to ED with chief complaint of painful range of motion hernia and urinary retention. Patient reports that he had a Guzman catheter for approximately 5 months which was removed by urology 2 days ago. Patient reports that he urinated yesterday, her left ear with urination today. Patient also reports that he has a chronic right inguinal hernia which today is causing her more pain than usual. Denies any complaints at this time. Denies any systemic symptoms of infection. Systemic: Pt denies fatigue, fever/chills, rash. Pt denies weakness, night sweats, weight loss. Neuro: Pt denies headache, visual disturbances, syncope or pre-syncope. HEENT: Pt denies ocular discharge or irritation, otalgia, rhinorrhea, pharyngitis or notable lymphadenopathy. Cardiopulmonary: Pt denies chest pain, SOB, heart palpitations, dyspnea on exertion. Abdominal/GI: Pt denies abdominal pain, n/v/d. : Pt denies dysuria, burning w/ urination, frequency/urgency. Denies new onset urinary or bowel incontinence. MSK: Pt denies myalgia, loss of strength or function in extremities. Neuro: Pt denies new onset weakness, paresthesias. (Dhruv Dan) - Related Data Home Medications Medication Instructions Recorded Confirmed Multivitamins, Thera [Multivitamin 1 tab PO DAILY 07/28/18 09/11/18 (formulary)] Previous Rx's Medication Instructions Recorded Ascorbic Acid [Vitamin C] 500 mg PO DAILY #0 07/12/18 Aspirin 81 mg PO DAILY #0 07/12/18 Furosemide [Lasix] 60 mg PO DAILY 30 Days tab 09/14/18 Lisinopril [Zestril] 2.5 mg PO DAILY #30 tab 09/14/18 Magnesium Oxide [Mag-Ox] 400 mg PO TID #30 tab 09/14/18 Metoprolol Succinate (ER) [Toprol 12.5 mg PO DAILY #30 tab.er.24h 09/14/18 XL] Spironolactone [Aldactone] 25 mg PO DAILY #30 tab 09/14/18 Esomeprazole Magnesium 20 mg PO DAILY #30 capsule.dr 09/15/18 Ferrous Sulfate [Iron (65 MG 325 mg PO DAILY #30 tab 09/15/18 Elemental)] Ipratropium/Albuterol Sulfate 1 puff INHALATION RT-TID #1 09/15/18 [Combivent Respimat Inhaler] mist.inhal Midodrine HCl [ProAmatine] 10 mg PO Q12HR #60 tablet 09/15/18 Potassium Chloride [Klor-Con 20] 20 meq PO DIRECTED #30 09/15/18 tab.er.prt Sennosides [Senokot] 8.6 mg PO BID #30 tab 09/15/18 Warfarin [Coumadin] 2 mg PO We@1800 #30 tab 09/15/18 Warfarin [Coumadin] 4 mg PO SuMoTuThFrSa@1800 #30 tab 09/15/18 Allergies Allergy/AdvReac Type Severity Reaction Status Date / Time No Known Allergies Allergy Verified 11/12/18 00:25 Review of Systems ROS Other: All systems not noted in ROS Statement are negative. <Dhruv Dan - Last Filed: 11/12/18 02:22> ROS Other: All systems not noted in ROS Statement are negative. <Natividad Vieira - Last Filed: 11/12/18 07:14> ROS Statement: Those systems with pertinent positive or pertinent negative responses have been documented in the HPI. Past Medical History Past Medical History: COPD, Dialysis, GERD/Reflux, Hyperlipidemia, Hypertension Additional Past Medical History / Comment(s): Neuromuscular dysfunction of bladder, iron deficiency anemia, neurogenic bladder, pressure ulcers, dissection of thoracic aorta, no longer doing dialysis History of Any Multi-Drug Resistant Organisms: None Reported Past Surgical History: No Surgical Hx Reported Additional Past Surgical History / Comment(s): May 2018 thoracic aorta repair at [facility] Past Anesthesia/Blood Transfusion Reactions: No Reported Reaction Past Psychological History: No Psychological Hx Reported Smoking Status: Former smoker Past Alcohol Use History: Occasional Past Drug Use History: None Reported <Dhruv Dan Alexander - Last Filed: 11/12/18 02:22> General Exam Limitations: no limitations <Dhruv Dan - Last Filed: 11/12/18 02:22> - General Exam Comments Initial Comments: Constitutional: NAD, AOX3, Pt has pleasant affect. HEENT: NC/AT, trachea midline, neck supple, no lymphadenopathy. Posterior pharynx non erythematous, without exudates. External ears appear normal, without discharge. Mucous membranes moist. Eyes PERRLA, EOM intact. There is no scleral icterus. No pallor noted. Cardiopulmonary: RRR, no murmurs, rubs or gallops, no JVD noted. Lungs CTAB in anterior and posterior brown. No peripheral edema. Abdominal exam: Abdomen soft and non-distended. Abdomen non-tender to palpation in all 4 quadrants. Bowel sounds active in LLQ. No hepatosplenomegaly. No ecchymosis Neuro: CN II-XII grossly intact. No nuchal rigidity. No raccon eyes, no chavez sign, no hemotympanum. No cervical spinal tenderness. MSK: No posterior calf tenderness bilaterally, homans sign negative bilaterally. Posterior tibialis and radial pulse +2 bilaterally. Sensation intact in upper and lower extremities. Full active ROM in upper and lower extremities, 5/5 stregnth. Right inguinal hernia, reduced in ED. (Dhruv Dan) Course Vital Signs 11/12/18 11/12/18 00:26 03:20 Temperature 97.9 F 98.3 F Pulse Rate 89 82 Respiratory 18 18 Rate Blood Pressure 125/69 137/68 O2 Sat by Pulse 97 97 Oximetry Medical Decision Making <MaylinmariaaDhruv Alexander - Last Filed: 11/12/18 02:22> <Natividad Vieira - Last Filed: 11/12/18 07:14> - Medical Decision Making 73-year-old male patient in CDU for urinary retention, requiring malaria. Patient vital signs stable, afebrile. Physical exam displayed regular hernia which was reduced in ED. Latter scan revealed greater than 200 mL Guzman catheter was placed. UA displayed mild intractable infection. Patient was started on Macrobid poorly by his primary care provider for urinary tract infection. Urine culture was obtained. Patient will be discharged with follow- up with previously established urologist and follow with general surgeon for inguinal hernia. Case discussed and pt seen by Dr. Vieira. (Dhruv Dan) I personally saw and evaluated the patient, upon my initial evaluation the patient had a large inguinal hernia on the right. Patient was laid flat and hernia was able to be reduced. However patient continued to have urinary retention decision was made to replace the Guzman catheter. Patient stable for discharge home with outpatient follow-up with urology and Gen. surgery. (Natividad Vieira) - Lab Data Lab Results 11/12/18 Range/Units 01:55 Urine Color Yellow Urine Appearance Clear (Clear) Urine pH 5.0 (5.0-8.0) Ur Specific [place] 1.011 (1.001-1.035) Urine Protein Negative (Negative) Urine Glucose (UA) Negative (Negative) Urine Ketones Negative (Negative) Urine Blood Negative (Negative) Urine Nitrite Negative (Negative) Urine Bilirubin Negative (Negative) Urine Urobilinogen <2.0 (<2.0) mg/dL Ur Leukocyte Esterase Moderate H (Negative) Urine WBC 15 H (0-5) /hpf Urine Bacteria Many H (None) /hpf Hyaline Casts 15 H (0-2) /lpf Disposition Is patient prescribed a controlled substance at d/c from ED?: No <Dhruv Dan - Last Filed: 11/12/18 02:22> <Natividad Vieira - Last Filed: 11/12/18 07:14> Clinical Impression: Urinary retention, Inguinal hernia, UTI (urinary tract infection) Disposition: HOME SELF-CARE Condition: Stable Instructions (If sedation given, give patient instructions): Urinary Retention in Men (ED), Urinary Tract Infection in Men (ED), Inguinal Hernia (ED) Additional Instructions: Patient to adhere to previously discussed treatment plan and will take medication(s) as directed. Patient to follow up with PCP in 1-2 days. Patient to return to ED if symptoms do not improve. Follow-up with primary care provider tomorrow. Follow-up with general surgeon and urologist tomorrow. Follow up with previously established urologist, however, if unable to follow up additional referral provided. . Referrals: Ozzy Padilla MD [Primary Care Provider] - 1-2 days Parminder Benjamin MD [STAFF PHYSICIAN] - 1-2 days Delma Roberts MD [STAFF PHYSICIAN] - 1-2 days
[2018-11-12 03:22] VITALS: BP 137/68; PULSE 82; TEMP 98.3
== END 2018-11-12 02:49 | disposition home or self-care (01) ==
LOC: EC 00:09
DX: N39.0 Urinary tract infection, site not specified (principal); K40.90 Unilateral inguinal hernia, without obstruction or gangrene, not specified as recurrent; Z87.891 Personal history of nicotine dependence; Z99.2 Dependence on renal dialysis; Z53.8 Procedure and treatment not carried out for other reasons
CPT/HCPCS: 51702; 51798; 81001; 87077; 87086; 87186; 99284

== ENCOUNTER → 2018-12-06 | Outpatient (CLI) | payer MEDICARE, OTHER ==
--- NOTE | 2018-12-06 19:16 | CT ---
EXAMINATION TYPE: CT abdomen pelvis wo con DATE OF EXAM: 12/06/2018 COMPARISON: None INDICATION: Generalized pain DLP: 222.2 mGycm, Automated exposure control for dose reduction was used. CONTRAST: 0 mL of Isovue 300. Study performed with Oral Contrast TECHNIQUE: Axial images were obtained from above the diaphragm to the pubic rami in the axial plane a t 5 mm thick sections. Reconstructed images are reviewed on the computer in the coronal plane. FINDINGS: Limited CT sections are obtained the lung bases. The lung bases are clear. CT ABDOMEN: Liver: Normal Spleen: Normal Pancreas: Normal Adrenal glands: The adrenal glands are normal. Gallbladder: Normal Kidneys: No masses are evident. No hydronephrosis is present. There may be a small cyst on the supe rior anterior pole left kidney measuring 1.2 cm. This may be a simple cyst measuring 5 [place] uni ts. No renal stones are evident. Aorta: Vascular calcification is within the aorta. Inferior vena cava: Normal. CT PELVIS: Loops of bowel within the abdomen and pelvis are normal. There is a large fecal bolus of the low re ctum. Correlate for fecal impaction. No dilated loops of bowel to suggest obstruction are evident. T here are scattered diverticuli within the sigmoid colon without evidence of acute diverticulitis. The re are loops of bowel which are incompletely distended or lack oral contrast limiting their evaluatio n. Appendix: Normal as visualized. Urinary bladder: Decompressed with Guzman catheter. Genitourinary structures: Prostate appears normal. Osseous structures: No suspicious lytic or sclerotic lesions. There is a large inguinal hernia containing loops of bowel. No suspicious inflammatory changes eviden t. Dilated loops of bowel are not evident. No contrast within this hernia and contrast extends to the ileum. IMPRESSIONS: 1. Large right inguinal hernia containing nonobstructed loops of bowel.
== END | disposition home or self-care (01) ==
LOC: RADCTMAIN 10:43
PROVIDERS: ATTEND Surgery Plastic and Reconstructive Surgery
DX: K40.90 Unilateral inguinal hernia, without obstruction or gangrene, not specified as recurrent (principal)
CPT/HCPCS: 74176

== ENCOUNTER → 2019-01-31 | Outpatient (CLI) | payer MEDICARE, OTHER ==
[2019-01-31 11:15] LABS: Basophils # (A) 0.2 k/uL (0-0.2); Basophils % (A) 2 %; Eosinophils # (A) 0.4 k/uL (0-0.7); Eosinophils % (A) 4 %; HCT 39.4 % (39.0-53.0); HGB 12.5 gm/dL (13.0-17.5); Lymphocytes # (A) 1.3 k/uL (1.0-4.8); Lymphocytes % (A) 14 %; MCH 30.3 pg (25.0-35.0); MCHC 31.7 g/dL (31.0-37.0); MCV 95.7 fL (80.0-100.0); Mean Platelet Volume 7.7; Monocytes # (A) 0.7 k/uL (0-1.0); Monocytes % (A) 7 %; Neutrophils # (A) 7.2 k/uL (1.3-7.7); Neutrophils % (A) 73 %; Platelet Count 166 k/uL (150-450); RBC 4.11 m/uL (4.30-5.90); RDW 15.1 % (11.5-15.5); WBC 9.8 k/uL (3.8-10.6)
[2019-01-31 11:19] LABS: Calcium 9.3 mg/dL (8.4-10.2); Potassium 4.8 mmol/L (3.5-5.1)
== END | disposition home or self-care (01) ==
LOC: LABPAT 09:45
PROVIDERS: ATTEND Urology
DX: Z01.812 Encounter for preprocedural laboratory examination (principal); N40.1 Benign prostatic hyperplasia with lower urinary tract symptoms; R33.8 Other retention of urine
CPT/HCPCS: 80048; 85025; 87086

== ENCOUNTER 2019-02-08 06:22 | Day surgery (SDC) | payer MEDICARE, OTHER ==
[2019-02-02 10:15] VITALS: BMI 17.2
--- NOTE | 2019-02-02 15:55 | P.GSHP ---
History of Present Illness H&P Date: 02/02/19 Chief Complaint: Urinary retention The patient is a 73-year-old white male who is had a Guzman catheter in place since early 2018 wall residing at [facility]. He was given a voiding trial and was able to void, but the retention recurred. A CMG in December 2018 showed normal detrusor function. Cystoscopy showed bipolar BPH. TURP was discussed, but Dr. Escobar does not feel he should be off Coumadin for the required length of time. In view of this, he has elected to undergo Urolift. - Constitutional Constitutional: Denies chills, Denies fever Past Medical History Past Medical History: Chest Pain / Angina, Heart Failure, COPD, CVA/TIA, Dialysis, GERD/Reflux, Hyperlipidemia, Hypertension, Myocardial Infarction (MT), Renal Disease Additional Past Medical History / Comment(s): Neuromuscular dysfunction of bladder, iron deficiency anemia, neurogenic bladder, Hx of pressure ulcers, Hx of Aortic Aneurysm surgery., Heart Murmur., Hx of renal failure with dialysis (around 40 yrs of age)- suicide attempt drank antifreeze , enlarged prostate- has urine catheter in place since Apr 2018., states hx of falls due to balance problems- states left lower leg weak- uses walker., ? TIA., Hx of peg tube due to dysphagia. Last Myocardial Infarction Date:: unknown-per ekg History of Any Multi-Drug Resistant Organisms: None Reported Past Surgical History: No Surgical Hx Reported Additional Past Surgical History / Comment(s): May [address] [facility]. Peg tube inserted and removed(07/10/18) Past Anesthesia/Blood Transfusion Reactions: No Reported Reaction Past Psychological History: Depression Additional Psychological History / Comment(s): Hx of sucide attemt at 40 yrs old while receiving dialysis- states he drank 1 pint of antifreeze. Smoking Status: Former smoker Past Alcohol Use History: Occasional Additional Past Alcohol Use History / Comment(s): QUIT SMOKING APR 2018., STARTED SMOKING AGE 16, SMOKED 1/2-1PPD. Past Drug Use History: None Reported - Past Family History Mother Family Medical History: No Reported History Medications and Allergies Home Medications Medication Instructions Recorded Confirmed Type Aspirin 81 mg PO DAILY #0 07/12/18 02/02/19 Rx Furosemide [Lasix] 60 mg PO DAILY 30 Days tab 09/14/18 02/02/19 Rx Lisinopril [Zestril] 2.5 mg PO DAILY #30 tab 09/14/18 02/02/19 Rx Magnesium Oxide [Mag-Ox] 400 mg PO TID #30 tab 09/14/18 02/02/19 Rx Metoprolol Succinate (ER) [Toprol 12.5 mg PO DAILY #30 tab.er.24h 09/14/18 02/02/19 Rx XL] Spironolactone [Aldactone] 25 mg PO DAILY #30 tab 09/14/18 02/02/19 Rx Esomeprazole Magnesium 20 mg PO DAILY #30 capsule.dr 09/15/18 02/02/19 Rx Ferrous Sulfate [Iron (65 MG 325 mg PO DAILY #30 tab 09/15/18 02/02/19 Rx Elemental)] Ipratropium/Albuterol Sulfate 1 puff INHALATION RT-TID #1 09/15/18 02/02/19 Rx [Combivent Respimat Inhaler] mist.inhal Midodrine HCl [ProAmatine] 10 mg PO Q12HR #60 tablet 09/15/18 02/02/19 Rx Multivit-Min/Folic/Vit K/Lycop 1 tab PO DAILY 02/02/19 02/02/19 History [Men's Multivitamin Tablet] Potassium Chloride [Klor-Con 20] 20 meq PO DAILY 02/02/19 02/02/19 History Sertraline [Zoloft] 25 mg PO DAILY 02/02/19 02/02/19 History Tamsulosin [Flomax] 0.4 mg PO HS 02/02/19 02/02/19 History Warfarin [Coumadin] 4 mg PO DAILY@1800 02/02/19 02/02/19 History Allergies Allergy/AdvReac Type Severity Reaction Status Date / Time No Known Allergies Allergy Verified 02/02/19 09:49 Surgical - Exam - General well developed, well nourished, no distress - Respiratory normal respiratory effort, clear to auscultation - Cardiovascular Rhythm: regular - Abdomen Abdomen: soft, non tender, no guarding, no rigid, no rebound - Genitourinary normal penis with no external lesions, testicles non-tender Assessment and Plan (1) Benign prostatic hyperplasia with lower urinary tract symptoms Status: Acute Code(s): N40.1 - BENIGN PROSTATIC HYPERPLASIA WITH LOWER URINARY TRACT SYMP SNOMED Code(s): 185951950 (2) Bladder retention Status: Acute Code(s): R33.9 - RETENTION OF URINE, UNSPECIFIED SNOMED Code(s): 825625389 Plan: Cystoscopy with Urolift. The procedure has been reviewed in detail with the patient and his family. They understand potential risks to include anesthesia, bleeding, infection, and persistent urinary retention.
[~2019-02-08 06:22] MED LIST: GENTAMICIN 80 MG in SODIUM CHLORIDE 0.9% 100 ML IVPB ONE; HYDROmorphone 0.5 MG/0.5 ML SYRINGE IVP PRN; LACTATED RINGERS 1,000 ML IV SCH; ONDANSETRON 4 MG/2 ML VIAL IVP PRN
[2019-02-08] MEDS ORDERED: LIDOCAINE 1% 20 ML VIAL (10MG/ML) FOR IV START INTRADERMA ONE (06:52)
[2019-02-08] MEDS ORDERED: MIDAZOLAM 2 MG/2 ML VIAL ONE (07:41)
[2019-02-08] MEDS ORDERED: fentaNYL (PF) 50 MCG/ML 2 ML AMP ONE (07:41)
[2019-02-08] MEDS ORDERED: PROPOFOL 10 MG/ML 20 ML VIAL IV ONE (07:41)
[2019-02-08 08:53] VITALS: TEMP 97.2
--- NOTE | 2019-02-08 08:54 | P.OP ---
Date of Procedure: 02/08/19 Preoperative Diagnosis: Urinary retention secondary to BPH Postoperative Diagnosis: Same Procedure(s) Performed: Cystoscopy with UroLift Implants Anesthesia: HECTOR Surgeon: Taurus Valles Estimated Blood Loss (ml): 5 IV fluids (ml): 500 Pathology: none sent Condition: stable Disposition: PACU Indications for Procedure: The patient is a 73-year-old white male who is had a Guzman catheter in place since early 2018 wall residing at [facility]. He was given a voiding trial and was able to void, but the retention recurred. A CMG in December 2018 showed normal detrusor function. Cystoscopy showed bipolar BPH. TURP was discussed, but Dr. Escobar does not feel he should be off Coumadin for the required length of time. In view of this, he has elected to undergo Urolift. Operative Findings: Completely obstructing prostate, 3 cm in length, bilobar configuration. UroLift implants result in an open anterior channel. Description of Procedure: The patient was taken to the operating room and placed in the dorsolithotomy position, with his legs supported in Westley stirrups. The external genitalia was prepped and draped sterilely. Intravenous antibiotics were administered. The 30 lens was used to introduce the cystoscope through the urethra and into the bladder under direct vision. The urethra appeared normal. The prostate was visually occluded, with a bilobar configuration. Enlargement of the right lateral lobe was more prominent than the left lateral lobe. The prostatic length was approximately 3 cm. The bladder was inspected. Both ureteral orifices were of normal anatomic location and configuration, and clear urine effluxed from both. No tumors or foreign bodies were seen. The bladder was not heavily trabeculated. There was evidence of catheter cystitis at the dome. UroLift implants were placed in the standard fashion on each side, approximately 1 cm distal to the vesical neck, at the 2:00 and 10:00 positions. 2 additional implants were then placed just proximal to the verumontanum bilaterally, resulting in an open anterior channel. A small amount of oozing occurred at the distal implant site on the right side, and this was controlled with fulguration using the Bugbee electrode. The bladder was emptied and the cystoscope removed. The patient tolerated the procedure well was taken to the recovery room in stable condition.
[2019-02-08] MEDS ORDERED: LACTATED RINGERS 1,000 ML IV ONE (10:17)
[2019-02-08 10:23] VITALS: RESP 16
[2019-02-08 10:53] VITALS: BP 172/95; PULSE 78
== END 2019-02-08 11:44 | disposition home or self-care (01) ==
LOC: OR 06:22
PROVIDERS: ATTEND Urology
DX: N40.1 Benign prostatic hyperplasia with lower urinary tract symptoms (principal); R33.8 Other retention of urine; N31.9 Neuromuscular dysfunction of bladder, unspecified; I25.10 Atherosclerotic heart disease of native coronary artery without angina pectoris; I11.0 Hypertensive heart disease with heart failure; I50.9 Heart failure, unspecified; Z87.891 Personal history of nicotine dependence; E78.5 Hyperlipidemia, unspecified; K21.9 Gastro-esophageal reflux disease without esophagitis; D50.9 Iron deficiency anemia, unspecified; F32.9 Major depressive disorder, single episode, unspecified; R26.81 Unsteadiness on feet; R13.10 Dysphagia, unspecified; Z93.1 Gastrostomy status; R53.1 Weakness; Z86.73 Personal history of transient ischemic attack (TIA), and cerebral infarction without residual deficits; I25.2 Old myocardial infarction; Z87.448 Personal history of other diseases of urinary system; Z91.5 Personal history of self-harm; Z79.01 Long term (current) use of anticoagulants; Z79.82 Long term (current) use of aspirin; Z79.899 Other long term (current) drug therapy
CPT/HCPCS: L8699; J2250; J0690; J2405; J3010; J1580; J2704; C9740

== ENCOUNTER 2021-01-26 11:51 | Observation (INO) | payer MEDICARE, OTHER ==
[2021-01-26] MEDS ORDERED: IPRATROPIUM-ALBUTEROL 3 ML NEB INHALATION STA (12:24)
[2021-01-26] MEDS ORDERED: predniSONE 50 MG TAB PO STA (12:24)
--- NOTE | 2021-01-26 12:59 | XR ---
EXAMINATION TYPE: XR abdomen 2V DATE OF EXAM: 01/26/2021 COMPARISON: None INDICATION: Abdomen pain, coughing up blood TECHNIQUE: Abdomen examined in supine and upright view FINDINGS: There is a normal bowel gas pattern. No air-fluid levels or differential air-fluid levels are present . No free air is evident. No mass effect is evident. Psoas margins are normal. No organomegaly is present. Surgical clips are within the pelvis. IMPRESSION: 1. Unremarkable Abdomen
[2021-01-26 13:08] LABS: Basophils # (A) 0.1 k/uL (0-0.2); Basophils % (A) 1 %; Eosinophils # (A) 0.2 k/uL (0-0.7); Eosinophils % (A) 2 %; HGB 12.2 gm/dL (13.0-17.5); Lymphocytes # (A) 1.6 k/uL (1.0-4.8); Lymphocytes % (A) 17 %; MCHC 32.1 g/dL (31.0-37.0); MCV 93.6 fL (80.0-100.0); Mean Platelet Volume 8.4; Monocytes # (A) 0.6 k/uL (0-1.0); Monocytes % (A) 6 %; Neutrophils # (A) 6.6 k/uL (1.3-7.7); Neutrophils % (A) 72 %; Platelet Count 195 k/uL (150-450); RBC 4.06 m/uL (4.30-5.90); RDW 13.2 % (11.5-15.5); WBC 9.1 k/uL (3.8-10.6)
[2021-01-26] MEDS ORDERED: RX INFO: IV CONTRAST WAS GIVEN 1 EACH MISC MISCELLANE PRN (13:15)
[2021-01-26 13:16] LABS: Calcium 8.9 mg/dL (8.4-10.2); Potassium 4.7 mmol/L (3.5-5.1); Total Bilirubin 0.4 mg/dL (0.2-1.3); Total Protein 6.9 g/dL (6.3-8.2)
[2021-01-26 13:21] LABS: INR 2.1 (<1.2); Partial Thromboplastin Time 32.2 sec (22.0-30.0); Prothrombin Time 20.5 sec (9.0-12.0)
[2021-01-26 13:23] LABS: Appearance,Urine Clear (Clear); Bilirubin,Urine Negative (Negative); Blood,Urine Negative (Negative); Color,Urine Light Yellow; Glucose,Urine (UA) Negative (Negative); Ketones,Urine Negative (Negative); Leukocyte Esterase,Urine Negative (Negative); Nitrite,Urine Negative (Negative); Protein,Urine Negative (Negative); Specific Gravity,Urine 1.009 (1.001-1.035); Urobilinogen,Urine <2.0 mg/dL (<2.0)
[2021-01-26] MEDS ORDERED: SODIUM CHLORIDE 0.9% 1,000 ML IV STA ×2 (13:26→15:01)
--- NOTE | 2021-01-26 14:47 | CT ---
EXAMINATION TYPE: CT ChestAbdPelvis w con DATE OF EXAM: 01/26/2021 INDICATION: Abdominal pain COMPARISON: 12/06/2018 CT DLP: 604.2 mGycm CONTRAST: Performed without Oral Contrast and with IV Contrast, patient injected with 50 mL of Isovue 300. TECHNIQUE: Axial images at 5 mm thick sections. Reconstructed images in the coronal plane. Delayed images through the kidneys. FINDINGS: CT CHEST: Portion of the thyroid visualized is normal. No suspicious lung nodules or focal infiltrates are present. No enlarged mediastinal or hilar adenopathy is evident. The ascending aorta diameter at the level of the main pulmonary artery is 3.1 cm. The main pulmonary artery diameter at the bifurcation is 2.3 cm. There is an aortic stent extending from the proximal a ortic arch through the mid descending thoracic aorta. At the termination of the descending aortic bo nt there is a dissection. Calcification is noted near the distal aortic dissection within the abdomin al aorta ultrasound present previously as well suggesting this is likely an old dissection. Both lume n are patent. No extravasation of contrast is noted. CT ABDOMEN: Liver: Normal Spleen: Normal Pancreas: Normal Adrenal glands: The adrenal glands are normal. Gallbladder: Normal Kidneys: No masses are evident. No hydronephrosis is present. No cysts are present. Delayed images were obtained through the kidneys, which remain unremarkable. Aorta: Vascular calcification is within the aorta. Aortic dissection from the thoracic aorta to the aortic bifurcation is noted. Given the calcification position previously, this is likely present on examination as well. Aortic dissection was not well evaluated previously at this location. Inferior vena cava: Normal. CT PELVIS: Diverticulosis without acute diverticulitis of the sigmoid colon is present. Loops of bowel are withi n a right inguinal hernia without evidence of obstruction small left inguinal hernia containing mesen teric fat may be present. Loops of bowel within the abdomen and pelvis are otherwise normal. Appendix: Normal as visualized. Urinary bladder: Normal. Genitourinary structures: Prostate is prominent. Surgical clips and calcification are present. Osseous structures: No suspicious lytic or sclerotic lesions are evident. IMPRESSIONS: 1. Old aneurysm repair with stent placement in the thoracic aorta. 2. Inferior to the aortic stent is an aortic dissection which appears present on the prior examinatio n. 3. Sigmoid diverticulosis without acute diverticulitis. 4. Right inguinal hernia containing nonobstructed loops of colon.
[2021-01-26] MEDS ORDERED: ONDANSETRON 4 MG/2 ML VIAL IVP PRN (15:43)
[2021-01-26] MEDS ORDERED: ACETAMINOPHEN TAB 325 MG TAB PO PRN (15:43)
[2021-01-26] MEDS ORDERED: NALOXONE 0.4 MG/ML 1 ML VIAL IV PRN (15:43)
[2021-01-26] MEDS ORDERED: MORPHINE SULFATE 4 MG/ML SYRINGE IV PRN (15:43)
--- NOTE | 2021-01-26 15:48 | ED ---
General Adult HPI - General Chief complaint: Recheck/Abnormal Lab/Rx Stated complaint: Coughing up blood Time Seen by Provider: 01/26/21 12:09 Source: patient, EMS, RN notes reviewed, old records reviewed Mode of arrival: EMS Limitations: no limitations - History of Present Illness Initial comments: I evaluated the patient when he was placed in a room. Patient is a 75-year-old male with past medical history remarkable for prior aortic graft repair pn eumothorax, bilateral inguinal hernias, COPD, hypertension who presents emergency Department complaining of episode of what he believes his hematemesis. Patient states that his surgeon, Dr. Harding told him to come to the emergency department if he ever had an episode of vomiting blood. Patient did have an episode of vomiting blood. This happened once earlier today. He was approximate cup of what he describes as read vomiting. States he has noticed that he is been having worsening lower abdominal pain at the sites of his hernias. Hernias do protrude into his scrotum. Denies any change in bowel habits and denies constipation. Still passing gas. Denies any other episodes of emesis. Denies any current nausea. Denies chest pain, shortness of breath. States that he is pretty certain that he had hematemesis, and not hemoptysis earlier. He denies any fevers, chills, cough, sick contacts. He has any lightheadedness, fatigue, weakness. He has no other acute point at this time. Patient is on Coumadin secondary to his history of aortic graft. He presents emergency department for further evaluation. - Related Data Home Medications Medication Instructions Recorded Confirmed Multivit-Min/Folic/Vit K/Lycop 1 tab PO DAILY 02/02/19 01/26/21 [Men's Multivitamin Tablet] Sertraline [Zoloft] 25 mg PO DAILY 02/02/19 01/26/21 Tamsulosin [Flomax] 0.4 mg PO HS 02/02/19 01/26/21 Ascorbic Acid [Vitamin C] 500 mg PO DAILY 01/26/21 01/26/21 Omeprazole 20 mg PO DAILY 01/26/21 01/26/21 Warfarin Sodium 6 mg PO SUTUTHSA@1800 01/26/21 01/26/21 Warfarin Sodium 8 mg PO MOWEFR@1800 01/26/21 01/26/21 Previous Rx's Medication Instructions Recorded Aspirin 81 mg PO DAILY #0 07/12/18 Furosemide [Lasix] 60 mg PO DAILY 30 Days tab 09/14/18 Metoprolol Succinate (ER) [Toprol 12.5 mg PO DAILY #30 tab.er.24h 09/14/18 XL] Spironolactone [Aldactone] 25 mg PO DAILY #30 tab 09/14/18 lisinopriL [Zestril] 2.5 mg PO DAILY #30 tab 09/14/18 Ferrous Sulfate [Iron (65 MG 325 mg PO DAILY #30 tab 09/15/18 Elemental)] Ipratropium/Albuterol Sulfate 1 puff INHALATION RT-TID #1 09/15/18 [Combivent Respimat Inhaler] mist.inhal Allergies Allergy/AdvReac Type Severity Reaction Status Date / Time No Known Allergies Allergy Verified 01/26/21 16:23 Review of Systems ROS Statement: Those systems with pertinent positive or pertinent negative responses have been documented in the HPI. Review of Systems: CONST: Denies fever EYES: Denies blurry vision ENT: Denies nasal congestion C/V: Denies Chest pain RESP: Denies shortness of breath GI: Denies abdominal pain : Denies dysuria SKIN: Denies rash. MSK: Denies joint pain. NEURO: Denies headache ROS Other: All systems not noted in ROS Statement are negative. 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 HEAD: Normal with no signs of head trauma. EYES: PERRLA, EOMI, conjunctiva normal, no discharge. No conjunctival pallor. ENT: Hearing grossly intact, normal oropharynx. RESPIRATORY: Patient has bilateral end expiratory wheezing which is chronic. C/V: Regular rate and rhythm. S1 and S2 auscultated, no edema, peripheral pulses 2+ and intact throughout. ABD: Abd is soft, nontender, nondistended : Patient has bilateral inguinal hernias, with tenderness over the hernia sites in the scrotum near the abdomen and pelvis. No scrotal tenderness on palpation. No urethral discharge. No skin changes to suggest strangulation. EXT: Normal range of motion, no obvious deformity SKIN: No rashes or lesions observed on exposed skin. NEURO: Alert and oriented 4. No focal sensory strength deficits. Limitations: no limitations Course Vital Signs 01/26/21 01/26/21 01/26/21 11:53 14:19 14:31 Temperature 98.2 F Pulse Rate 76 74 76 Respiratory 18 Rate Blood Pressure 154/74 O2 Sat by Pulse 99 Oximetry 01/26/21 01/26/21 14:48 16:09 Temperature Pulse Rate 64 70 Respiratory 18 18 Rate Blood Pressure 130/65 145/68 O2 Sat by Pulse 99 97 Oximetry Medical Decision Making - Medical Decision Making Based on patient's presentation and physical exam, I'm concerned, in the setting of anticoagulation use for possible syncopal episode GI bleeding. I am also concerned for possible incarceration of his bilateral inguinal hernias due to the tenderness without any skin changes. He also has a history of the aortic graft and I would like to rule out the possibility of a fistula formation to the esophagus or trachea in the thorax. I discussed this with the patient and he was in agreement this plan. We will obtain basic laboratory studies patient does have a history of CK D was previously on dialysis but no longer is. Also obtain basic labs to ensure he is not anemic. He has had no further episodes of bleeding that he knows of. He was in agreement this plan. Screening EKG will also be obtained. EKG shows no signs of acute ischemia. His ultimate placement of prior EKGs. Laboratory studies are remarkable for a hemoglobin of 12.2 which is normocytic, and this appears to be at his baseline. Patient's INR is within normal limits the setting of Coumadin use at 2.1. Patient does have an AK eye of 1.63 which is above what appears to be his baseline of near 1. GFR is 41. Amylase is incidentally mildly elevated to 123. Covid is negative. Remainder of his labs are unremarkable. Despite the patient's low GFR, I did discuss with him as well as CT techs regarding the desire to obtain CT with contrast of the thorax, abdomen, and pelvis. A lower dose of contrast will be used. I believe that the benefits outweigh the risks, as due to the concern of having a fistula from his aorta, it is best use contrast. They were in agreement this plan. He'll be fluid hydrated and admitted to the hospital afterwards for continued hydration and reevaluation. Patient's CT revealed no change in his thoracic aortic repair and no signs of fistulas. Patient does have diverticulosis without diverticulitis as well as right inguinal hernia containing nonobstructive loops of colon. On reevaluation, patient is still refusing analgesia at this time. I discussed with him that would like to admit him for further fluid hydration as well as surgery evaluation. He was in agreement this plan. I did initially speak with surgery on-call, Dr. Recio, however this was accidental, the patient should go to Dr. Mahajan who was on-call for Dr. Manuel. Dr. Farooq expressed understanding was in agreement with this. I spoke with Dr. Mahajan over the phone and he was in agreement and accept the consult. I spoke with the admitting team under Dr. Recio who accepted the patient. Patient was therefore admitted in stable condition for fluid hydration for his DELROY and surgical evaluation. Patient remained a symptomatically and no further episodes of bleeding. Vital signs are stable to the stay. We'll also treat his mild COPD exacerbation. - Lab Data Result diagrams: 01/26/21 12:40 01/26/21 12:40 Lab Results 01/26/21 01/26/21 01/26/21 Range/Units 12:40 12:40 12:40 WBC 9.1 (3.8-10.6) k/uL RBC 4.06 L (4.30-5.90) m/uL Hgb 12.2 L (13.0-17.5) gm/dL Hct 38.0 L (39.0-53.0) % MCV 93.6 (80.0-100.0) fL MCH 30.0 (25.0-35.0) pg MCHC 32.1 (31.0-37.0) g/dL RDW 13.2 (11.5-15.5) % Plt Count 195 (150-450) k/uL MPV 8.4 Neutrophils % 72 % Lymphocytes % 17 % Monocytes % 6 % Eosinophils % 2 % Basophils % 1 % Neutrophils # 6.6 (1.3-7.7) k/uL Lymphocytes # 1.6 (1.0-4.8) k/uL Monocytes # 0.6 (0-1.0) k/uL Eosinophils # 0.2 (0-0.7) k/uL Basophils # 0.1 (0-0.2) k/uL PT 20.5 H (9.0-12.0) sec INR 2.1 H (<1.2) APTT 32.2 H (22.0-30.0) sec Sodium 137 (137-145) mmol/L Potassium 4.7 (3.5-5.1) mmol/L Chloride 100 (98-107) mmol/L Carbon Dioxide 29 (22-30) mmol/L Anion Gap 8 mmol/L BUN 36 H (9-20) mg/dL Creatinine 1.63 H (0.66-1.25) mg/dL Est GFR (CKD-EPI)AfAm 48 (>60 ml/min/1.73 sqM) Est GFR (CKD-EPI)NonAf 41 (>60 ml/min/1.73 sqM) Glucose 71 L (74-99) mg/dL Plasma Lactic Acid Francis (0.7-2.0) mmol/L Calcium 8.9 (8.4-10.2) mg/dL Total Bilirubin 0.4 (0.2-1.3) mg/dL AST 32 (17-59) U/L ALT 20 (4-49) U/L Alkaline Phosphatase 75 (38-126) U/L Total Protein 6.9 (6.3-8.2) g/dL Albumin 4.0 (3.5-5.0) g/dL Amylase 123 H (30-110) U/L Lipase 154 (23-300) U/L Urine Color Urine Appearance (Clear) Urine pH (5.0-8.0) Ur Specific [place] (1.001-1.035) Urine Protein (Negative) Urine Glucose (UA) (Negative) Urine Ketones (Negative) Urine Blood (Negative) Urine Nitrite (Negative) Urine Bilirubin (Negative) Urine Urobilinogen (<2.0) mg/dL Ur Leukocyte Esterase (Negative) Coronavirus (PCR) (Not Detectd) 01/26/21 01/26/21 01/26/21 Range/Units 12:40 12:40 13:06 WBC (3.8-10.6) k/uL RBC (4.30-5.90) m/uL Hgb (13.0-17.5) gm/dL Hct (39.0-53.0) % MCV (80.0-100.0) fL MCH (25.0-35.0) pg MCHC (31.0-37.0) g/dL RDW (11.5-15.5) % Plt Count (150-450) k/uL MPV Neutrophils % % Lymphocytes % % Monocytes % % Eosinophils % % Basophils % % Neutrophils # (1.3-7.7) k/uL Lymphocytes # (1.0-4.8) k/uL Monocytes # (0-1.0) k/uL Eosinophils # (0-0.7) k/uL Basophils # (0-0.2) k/uL PT (9.0-12.0) sec INR (<1.2) APTT (22.0-30.0) sec Sodium (137-145) mmol/L Potassium (3.5-5.1) mmol/L Chloride (98-107) mmol/L Carbon Dioxide (22-30) mmol/L Anion Gap mmol/L BUN (9-20) mg/dL Creatinine (0.66-1.25) mg/dL Est GFR (CKD-EPI)AfAm (>60 ml/min/1.73 sqM) Est GFR (CKD-EPI)NonAf (>60 ml/min/1.73 sqM) Glucose (74-99) mg/dL Plasma Lactic Acid Francis 1.1 (0.7-2.0) mmol/L Calcium (8.4-10.2) mg/dL Total Bilirubin (0.2-1.3) mg/dL AST (17-59) U/L ALT (4-49) U/L Alkaline Phosphatase (38-126) U/L Total Protein (6.3-8.2) g/dL Albumin (3.5-5.0) g/dL Amylase (30-110) U/L Lipase (23-300) U/L Urine Color Light Yellow Urine Appearance Clear (Clear) Urine pH 7.0 (5.0-8.0) Ur Specific [place] 1.009 (1.001-1.035) Urine Protein Negative (Negative) Urine Glucose (UA) Negative (Negative) Urine Ketones Negative (Negative) Urine Blood Negative (Negative) Urine Nitrite Negative (Negative) Urine Bilirubin Negative (Negative) Urine Urobilinogen <2.0 (<2.0) mg/dL Ur Leukocyte Esterase Negative (Negative) Coronavirus (PCR) Not Detected (Not Detectd) - EKG Data -: EKG Interpreted by Me EKG Comments: 12-lead Electrocardiogram Interpretation Note EKG was reviewed and interpreted by myself. 12-lead ECG performed at 1328 is interpreted by me as revealing normal sinus rhythm at a rate of 76 beats per minute. Left axis deviation. NC interval is 178 ms, QRS duration is 86 ms, QTc is 452 ms.. There were no ST or T wave abnormalities to suggest myocardial ischemia or injury. R wave progression across the precordium was satisfactory. By my interpretation this EKG is non-diagnostic for acute ischemia. EKG is relatively unchanged when compared to prior EKG from 2019. Critical Care Time Critical Care Time: Yes Total Critical Care Time: 30 Critical Care Time: Upon my evaluation, this patient had a high probability of imminent or life- threatening deterioration due to possible hemoptysis or bleeding secondary to hernia pain, which required my direct attention, intervention, and personal management. I have personally provided 30 minutes of critical care time exclusive of time spent on separately billable procedures. Time includes review of laboratory data, radiology results, discussion with consultants, and monitoring for potent ial decompensation. Interventions were performed as documented in my note. Disposition Clinical Impression: Inguinal hernia, DELROY (acute kidney injury), COPD (chronic obstructive pulmonary disease) Disposition: ADMITTED IP TO THIS HOSP Condition: Stable
--- NOTE | 2021-01-26 16:28 | P.GSCN ---
History of Present Illness Consult date: 01/26/21 History of present illness: CHIEF COMPLAINT: Hemoptysis HISTORY OF PRESENT ILLNESS: This is a 75-year-old male who presented to the hospital with lower abdominal pain. He had a computed tomography scan of the chest abdomen and pelvis completed that showed a right inguinal hernia containing nonobstructed loops of colon. Apparently patient also had been spitting up blood. He does have a cough. He also has evidence of acute kidney injury. Surgical services consulted in regards to bilateral inguinal hernias. He denies any nausea or vomiting. Denies any fever, chills or sweats. Patient seen and examined with Dr. Recio in the ER PAST MEDICAL HISTORY: COPD, hyperlipidemia, hypertension, neuromuscular dysfunctional bladder, iron deficiency anemia, pressure ulcers, has done hemodialysis in the past, PAST SURGICAL HISTORY: Dissection of the thoracic aorta status post thoracic aortic repair at [facility] in May 2018 MEDICATIONS: See list. ALLERGIES: See list. SOCIAL HISTORY: No illicit drug use. REVIEW OF SYSTEMS: CONSTITUTIONAL: Denies fever or chills. HEENT: Denies blurred vision, vision changes, or eye pain. Denies hemoptysis CARDIOVASCULAR: Denies chest pain or pressure. RESPIRATORY: No shortness of breath. GASTROINTESTINAL: See HPI for pertinent findings HEMATOLOGIC: Denies bleeding disorders. GENITOURINARY: Denies any blood in urine or increased urinary frequency. SKIN: Denies pruitis. Denies rash. PHYSICAL EXAM: VITAL SIGNS: Reviewed GENERAL: Well-developed in no acute distress. HEENT: No sclera icterus. Extraocular movements grossly intact. Moist buccal mucosa. Head is atraumatic, normocephalic. No nasal drainage. ABDOMEN: Soft. Nondistended. Bilateral inguinal hernias NEUROLOGIC: Alert and oriented. Cranial nerves II through XII grossly intact. LABORATORY DATA: WBC is 9.1 hemoglobin is 12.2 platelets 195 INR 2.1 Sodium 137 potassium 4.7 BUN 36 creatinine 1.63 Lactic acid 1.1 Urinalysis negative COVID-19 not detected IMAGING: Computed tomography scan of chest abdomen and pelvis shows old aneurysm repair with stent placement and thoracic aorta. Inferior to the aortic stent is an aortic dissection which appears present on prior examination. Sigmoid diverticulosis without acute diverticulitis. Right inguinal hernia containing nonobstructed loops of colon ASSESSMENT: 1. Incarcerated right inguinal hernia and left inguinal hernia PLAN: -Patient scheduled for open repair of incarcerated right inguinal hernia and left inguinal hernia tomorrow, 01/27/[address] Recio -Keep patient nothing by mouth after midnight -Hold Coumadin -Repeat labs in a.m. Thank you for this consultation Physician Sewer Hand note has been reviewed by physician. Signing provider agrees with the documented findings, assessment, and plan of care. Past Medical History Past Medical History: COPD, Dialysis, GERD/Reflux, Hyperlipidemia, Hypertension Additional Past Medical History / Comment(s): Neuromuscular dysfunction of bladder, iron deficiency anemia, neurogenic bladder, pressure ulcers, dissection of thoracic aorta, no longer doing dialysis History of Any Multi-Drug Resistant Organisms: ESBL Year Discovered:: 02/14/19 ESBL-E.coli MDRO Source:: Urine Past Surgical History: No Surgical Hx Reported Additional Past Surgical History / Comment(s): May 2018 thoracic aorta repair at [facility] Past Anesthesia/Blood Transfusion Reactions: No Reported Reaction Past Psychological History: No Psychological Hx Reported Smoking Status: Former smoker Past Alcohol Use History: Occasional Past Drug Use History: None Reported Medications and Allergies Home Medications Medication Instructions Recorded Confirmed Type Aspirin 81 mg PO DAILY #0 07/12/18 02/08/19 Rx Furosemide [Lasix] 60 mg PO DAILY 30 Days tab 09/14/18 02/02/19 Rx Magnesium Oxide [Mag-Ox] 400 mg PO TID #30 tab 09/14/18 02/02/19 Rx Metoprolol Succinate (ER) [Toprol 12.5 mg PO DAILY #30 tab.er.24h 09/14/18 02/02/19 Rx XL] Spironolactone [Aldactone] 25 mg PO DAILY #30 tab 09/14/18 02/02/19 Rx lisinopriL [Zestril] 2.5 mg PO DAILY #30 tab 09/14/18 02/02/19 Rx Esomeprazole Magnesium 20 mg PO DAILY #30 capsule.dr 09/15/18 02/02/19 Rx Ferrous Sulfate [Iron (65 MG 325 mg PO DAILY #30 tab 09/15/18 02/02/19 Rx Elemental)] Ipratropium/Albuterol Sulfate 1 puff INHALATION RT-TID #1 09/15/18 02/08/19 Rx [Combivent Respimat Inhaler] mist.inhal Midodrine HCl [ProAmatine] 10 mg PO Q12HR #60 tablet 09/15/18 02/02/19 Rx Multivit-Min/Folic/Vit K/Lycop 1 tab PO DAILY 02/02/19 02/02/19 History [Men's Multivitamin Tablet] Potassium Chloride [Klor-Con 20] 20 meq PO DAILY 02/02/19 02/02/19 History Sertraline [Zoloft] 25 mg PO DAILY 02/02/19 02/02/19 History Tamsulosin [Flomax] 0.4 mg PO HS 02/02/19 02/08/19 History Warfarin [Coumadin] 4 mg PO DAILY@1800 02/02/19 02/02/19 History Allergies Allergy/AdvReac Type Severity Reaction Status Date / Time No Known Allergies Allergy Verified 01/26/21 11:58 Surgical - Exam Vital Signs Temp Pulse Resp BP Pulse Ox 98.2 F 76 18 154/74 99 01/26/21 11:53 01/26/21 11:53 01/26/21 11:53 01/26/21 11:53 01/26/21 11:53 Results - Labs 01/26/21 12:40 01/26/21 12:40 Abnormal Lab Results - Last 24 Hours (Table) 01/26/21 01/26/21 01/26/21 Range/Units 12:40 12:40 12:40 RBC 4.06 L (4.30-5.90) m/uL Hgb 12.2 L (13.0-17.5) gm/dL Hct 38.0 L (39.0-53.0) % PT 20.5 H (9.0-12.0) sec INR 2.1 H (<1.2) APTT 32.2 H (22.0-30.0) sec BUN 36 H (9-20) mg/dL Creatinine 1.63 H (0.66-1.25) mg/dL Glucose 71 L (74-99) mg/dL Amylase 123 H (30-110) U/L Diabetes panel 01/26/21 Range/Units 12:40 Sodium 137 (137-145) mmol/L Potassium 4.7 (3.5-5.1) mmol/L Chloride 100 (98-107) mmol/L Carbon Dioxide 29 (22-30) mmol/L BUN 36 H (9-20) mg/dL Creatinine 1.63 H (0.66-1.25) mg/dL Glucose 71 L (74-99) mg/dL Calcium 8.9 (8.4-10.2) mg/dL AST 32 (17-59) U/L ALT 20 (4-49) U/L Alkaline Phosphatase 75 (38-126) U/L Total Protein 6.9 (6.3-8.2) g/dL Albumin 4.0 (3.5-5.0) g/dL Calcium panel 01/26/21 Range/Units 12:40 Calcium 8.9 (8.4-10.2) mg/dL Albumin 4.0 (3.5-5.0) g/dL Pituitary panel 01/26/21 Range/Units 12:40 Sodium 137 (137-145) mmol/L Potassium 4.7 (3.5-5.1) mmol/L Chloride 100 (98-107) mmol/L Carbon Dioxide 29 (22-30) mmol/L BUN 36 H (9-20) mg/dL Creatinine 1.63 H (0.66-1.25) mg/dL Glucose 71 L (74-99) mg/dL Calcium 8.9 (8.4-10.2) mg/dL Adrenal panel 01/26/21 Range/Units 12:40 Sodium 137 (137-145) mmol/L Potassium 4.7 (3.5-5.1) mmol/L Chloride 100 (98-107) mmol/L Carbon Dioxide 29 (22-30) mmol/L BUN 36 H (9-20) mg/dL Creatinine 1.63 H (0.66-1.25) mg/dL Glucose 71 L (74-99) mg/dL Calcium 8.9 (8.4-10.2) mg/dL Total Bilirubin 0.4 (0.2-1.3) mg/dL AST 32 (17-59) U/L ALT 20 (4-49) U/L Alkaline Phosphatase 75 (38-126) U/L Total Protein 6.9 (6.3-8.2) g/dL Albumin 4.0 (3.5-5.0) g/dL
--- NOTE | 2021-01-26 16:54 | P.HPIM ---
History of Present Illness H&P Date: 01/26/21 History of present illness 75 years old gentleman with past medical history of a thoracic aortic aneurysm status post repair [facility] in May 2018, with history of cardiomyopathy, nonischemic, history of systolic congestive heart failure, hyperlipidemia, history of neurogenic bladder arm status post uroloft in 2019, ex-smoker, history of chronic renal insufficiency COPD, hypertension, hyperlipidemia, GERD, history of malnutrition, history of iron deficiency anemia currently living in with his family on patient of Dr. healy who he has been seen for a nonreducible hernia on the right. Patient was asked to come to the ER if patient develops any blood per rectum or mouth. Patient endorses an episode of hematemesis, associated with lower abdominal pain. Patient denies any nausea or vomiting. He denies any diarrhea or constipation or melena. In the ER patient underwent a computed tomography scan of the chest abdomen and pelvis that suggesting an old aneurysm repair with stent placement in the thoracic aorta. Inferior to the thoracic aortic stent there is aortic dissection which appears chronic sigmoid diverticulosis seen writing [place] hernia containing nonobstructed loop of colon seen. Small left inguinal hernia containing mesenteric fat is also present. Labs are reviewed patient a WBC of 9.1 hemoglobin 12.2 platelets 195 INR 2.1 BUN 36 creatinine 1.63. UA is negative: COVID is negative. Vital signs stable with afebrile pulse 70 respiratory rate 18 blood pressure 145/68 oxygen saturation 97% on room air. Patient would need likely surgery for the incarcerated right inguinal hernia. Surgery consult placed. Patient would need cardiac clearance before undergoing surgery. Echocardiogram ordered. Repeat Ordered for Tomorrow Morning ROS Constitutional: Denies chills, Denies fever, Denies lethargy, Denies malaise, Denies poor appetite, Denies weakness, Denies weight loss Eyes: denies decreased vision, denies diplopia, denies discharge, denies pain Ears: deny: decreased hearing Ears, nose, mouth and throat: Denies dental pain, Denies headache, Denies nasal discharge, Denies nose pain Cardiovascular: Denies chest pain, Denies decreased exercise tolerance, Denies edema, Denies high blood pressure, Denies irregular heart beat, Denies palpitations, Denies paroxysmal nocturnal dyspnea, Denies rapid heart beat, Denies shortness of breath Respiratory: Denies congestion, Denies cough, Denies cough with sputum, Denies dyspnea, Denies home oxygen, Denies wheezing Gastrointestinal: Endorses abdominal pain, Denies change in bowel habits, endorses hematemesis, denies coffee ground emesis Denies early satiety, Denies excessive gas, Denies heartburn, Denies hematemesis, Denies hematochezia, Denies loss of appetite, Denies nausea, Denies vomiting Genitourinary: Denies dysuria, Denies flank pain, Denies kidney stones, Denies menorrhagia, Denies urgency, Denies urinary frequency Musculoskeletal: Denies gait dysfunction, Denies limitation of motion, Denies morning stiffness, Denies muscle cramps Integumentary: Denies rash, Denies wounds, Denies brittle nails, Denies change in hair/nails, Denies darkening of skin Neurological: Denies balance difficulties, Denies change in speech, Denies double vision, Denies gait dysfunction, Denies loss of vision, Denies motor disturbance, Denies numbness, Denies paralysis, Denies paresthesias, Denies seizures Psychiatric: Denies anxiety, Denies depression Endocrine: Denies excessive sweating, Denies excessive thirst, Denies high blood sugars, Denies palpitations Hematologic/Lymphatic: Denies easy bruising, Denies lymphadenopathy Social history Lives with his caregivers, his daughter and son-in-law. Does not use a cane or walker. Is independent quit smoking in 2019 after his aneurysm. Denies any alcohol use. Used to smoke 1 pack a day quit 2019. Started smoking again 6 mon ths ago 1-2 cigarettes until a week Family history Father had a cancer, unknown Mother of old age 1 brother and 2 stepbrothers doing well 6 sisters denies any medical problems Patient has 5 biological children no medical problems Physical exam - Constitutional General appearance: cooperative, no acute distress, appears stated age - EENT Eyes: anicteric sclerae, PERRLA, normal appearance ENT: hearing grossly normal - Neck Neck: no lymphadenopathy, normal ROM, no other, no rigidity, no stridor, no thyromegaly - Respiratory Respiratory: bilateral: CTA, negative: diminished, dullness, rales, rhonchi - Cardiovascular Rhythm: regular Heart sounds: normal: S1, S2 Abnormal Heart Sounds: no systolic murmur, no diastolic murmur, no rub, no S3 Gallop, no S4 Gallop, no click, no other - Gastrointestinal General gastrointestinal: normal bowel sounds, soft - Genitourinary bilateral inguinal hernias noted, large right sided nonreducible hernia, nontender on palpation involving the scrotum, left inguinal fullness tender to palpate mildly reducible -Integumentary No rash - Neurologic Neurologic: CNII-XII intact no sensory or motor deficits - Musculoskeletal Musculoskeletal: gait normal, strength equal bilaterally - Psychiatric Psychiatric: A&O x's 3, appropriate affect Assessment and plan #1 hematemesis unclear etiology. CBC stable at 12.1. Protonix 40 IV daily. Surgery consulted for possible endoscopy #2 bilateral inguinal hernia that needs repair. Surgery consulted rule out incarceration. Cardiac clearance as patient has a history of aneurysm and dissections in the past. On Coumadin hold Coumadin and keep patient nothing by mouth after midnight. #3 thoracic aorta aneurysm status post aortic stent with dissection involving the distal descending aorta on aspirin and Coumadin, Lipitor. Cardiology consult placed #4 chronic systolic congestive heart failure echocardiogram ordered. Daily weight I and O monitoring. Continue lisinopril, Aldactone, metoprolol, Lasix Lasix 60 mg by mouth daily #5 hypertension continue metoprolol 12.5 daily, lisinopril 2.5 mg daily, Aldactone 25 mg by mouth daily Lasix 60 mg by mouth daily #6 history of BPH with neurogenic bladder status urolift [address] Garcia on Flomax 0.4 mg daily at bedtime #7 COPD continue DuoNeb as needed for shortness of breath #8 depression continue Zoloft 25 mg by mouth daily #9 CODE STATUS full code #10 DVT prophylaxis with heparin every 12 #11 GI prophylaxis with history ofGERD on omeprazole #12 disposition patient to be in the hospital for 1-2 nights for stabilization Past Medical History Past Medical History: COPD, Dialysis, GERD/Reflux, Hyperlipidemia, Hypertension Additional Past Medical History / Comment(s): Neuromuscular dysfunction of bladder, iron deficiency anemia, neurogenic bladder, pressure ulcers, dissection of thoracic aorta, no longer doing dialysis History of Any Multi-Drug Resistant Organisms: ESBL Date of last positivie culture/infection: 02/14/19 ESBL-E.coli MDRO Source:: Urine Past Surgical History: No Surgical Hx Reported Additional Past Surgical History / Comment(s): May 2018 thoracic aorta repair at [facility] Past Anesthesia/Blood Transfusion Reactions: No Reported Reaction Past Psychological History: No Psychological Hx Reported Smoking Status: Former smoker Past Alcohol Use History: Occasional Past Drug Use History: None Reported Medications and Allergies Home Medications Medication Instructions Recorded Confirmed Type Aspirin 81 mg PO DAILY #0 07/12/18 01/26/21 Rx Furosemide [Lasix] 60 mg PO DAILY 30 Days tab 09/14/18 01/26/21 Rx Metoprolol Succinate (ER) [Toprol 12.5 mg PO DAILY #30 tab.er.24h 09/14/18 01/26/21 Rx XL] Spironolactone [Aldactone] 25 mg PO DAILY #30 tab 09/14/18 01/26/21 Rx lisinopriL [Zestril] 2.5 mg PO DAILY #30 tab 09/14/18 01/26/21 Rx Ferrous Sulfate [Iron (65 MG 325 mg PO DAILY #30 tab 09/15/18 01/26/21 Rx Elemental)] Ipratropium/Albuterol Sulfate 1 puff INHALATION RT-TID #1 09/15/18 01/26/21 Rx [Combivent Respimat Inhaler] mist.inhal Multivit-Min/Folic/Vit K/Lycop 1 tab PO DAILY 02/02/19 01/26/21 History [Men's Multivitamin Tablet] Sertraline [Zoloft] 25 mg PO DAILY 02/02/19 01/26/21 History Tamsulosin [Flomax] 0.4 mg PO HS 02/02/19 01/26/21 History Ascorbic Acid [Vitamin C] 500 mg PO DAILY 01/26/21 01/26/21 History Omeprazole 20 mg PO DAILY 01/26/21 01/26/21 History Warfarin Sodium 6 mg PO SUTUTHSA@1800 01/26/21 01/26/21 History Warfarin Sodium 8 mg PO MOWEFR@1800 01/26/21 01/26/21 History Allergies Allergy/AdvReac Type Severity Reaction Status Date / Time No Known Allergies Allergy Verified 01/26/21 16:23 Physical Exam Vitals: Vital Signs Temp Pulse Resp BP Pulse Ox 01/26/21 16:09 70 18 145/68 97 01/26/21 14:48 64 18 130/65 99 01/26/21 14:31 76 10/25/21 14:19 74 01/26/21 11:53 98.2 F 76 18 154/74 99 Intake and Output 01/26/21 01/26/21 01/26/21 06:59 14:59 22:59 Other: Weight 50.802 kg Results CBC & Chem 7: 01/26/21 12:40 01/26/21 12:40 Labs: Abnormal Lab Results - Last 24 Hours (Table) 01/26/21 01/26/21 01/26/21 Range/Units 12:40 12:40 12:40 RBC 4.06 L (4.30-5.90) m/uL Hgb 12.2 L (13.0-17.5) gm/dL Hct 38.0 L (39.0-53.0) % PT 20.5 H (9.0-12.0) sec INR 2.1 H (<1.2) APTT 32.2 H (22.0-30.0) sec BUN 36 H (9-20) mg/dL Creatinine 1.63 H (0.66-1.25) mg/dL Glucose 71 L (74-99) mg/dL Amylase 123 H (30-110) U/L
[2021-01-26] MEDS ORDERED: WARFARIN 2 MG TAB PO SCH (21:30)
[2021-01-27] MEDS: IPRATROPIUM-ALBUTEROL 3 ML NEB INHALATION SCH ×4 (04:12→16:17)
[2021-01-27 06:45] LABS: Basophils % (A) 0 %; Eosinophils # (A) 0.1 k/uL (0-0.7); Eosinophils % (A) 1 %; HCT 34.1 % (39.0-53.0); Lymphocytes # (A) 1.4 k/uL (1.0-4.8); Lymphocytes % (A) 15 %; MCH 30.2 pg (25.0-35.0); MCHC 32.3 g/dL (31.0-37.0); MCV 93.6 fL (80.0-100.0); Mean Platelet Volume 8.6; Monocytes # (A) 0.6 k/uL (0-1.0); Monocytes % (A) 7 %; Neutrophils # (A) 7.1 k/uL (1.3-7.7); Neutrophils % (A) 76 %; Platelet Count 189 k/uL (150-450); RBC 3.64 m/uL (4.30-5.90); RDW 13.3 % (11.5-15.5); WBC 9.4 k/uL (3.8-10.6)
[2021-01-27] MEDS ORDERED: DEXAMETHASONE SOD PHOSPHATE 4 MG/ML 1 ML VIAL IV ONE (06:49)
[2021-01-27] MEDS ORDERED: ONDANSETRON 4 MG/2 ML VIAL IVP ONE (06:49)
[2021-01-27] MEDS ORDERED: LIDOCAINE 1% (10MG/ML) FOR IV START INTRADERMA PRN (06:49)
[2021-01-27] MEDS ORDERED: LACTATED RINGERS 1,000 ML IV SCH (06:49)
[2021-01-27] MEDS ORDERED: TAMSULOSIN 0.4 MG CAP.ER.24H PO SCH ×2 (06:49→18:30)
[2021-01-27] MEDS ORDERED: HYDROmorphone 0.5 MG/0.5 ML SYRINGE IVP PRN (07:00)
[2021-01-27 07:03] LABS: INR 1.9 (<1.2); Prothrombin Time 18.6 sec (9.0-12.0)
[2021-01-27 07:08] LABS: ALT 19 U/L (4-49); AST 26 U/L (17-59); African American GFR (CKD) 52 (>60 ml/min/1.73 sqM); Albumin 3.5 g/dL (3.5-5.0); Albumin/Globulin Ratio 1.3; Alkaline Phosphatase 69 U/L (38-126); Anion Gap 6 mmol/L; Blood Urea Nitrogen 35 mg/dL (9-20); Calcium 8.7 mg/dL (8.4-10.2); Carbon Dioxide 26 mmol/L (22-30); Chloride 104 mmol/L (98-107); Globulin 2.8 g/dL; Glucose 88 mg/dL (74-99); Non-African American GFR(CKD) 45 (>60 ml/min/1.73 sqM); Potassium 4.4 mmol/L (3.5-5.1); Sodium 136 mmol/L (137-145); Total Bilirubin 0.2 mg/dL (0.2-1.3); Total Protein 6.3 g/dL (6.3-8.2)
[2021-01-27] MEDS ORDERED: predniSONE 20 MG TAB PO SCH (09:00)
[2021-01-27] MEDS ORDERED: FUROSEMIDE 20 MG TAB PO SCH ×2 (09:00)
[2021-01-27] MEDS ORDERED: SERTRALINE 25 MG TAB PO SCH ×2 (09:00)
[2021-01-27] MEDS ORDERED: METOPROLOL SUCCINATE (ER) 25 MG TAB.ER.24H PO SCH ×2 (09:00)
[2021-01-27] MEDS ORDERED: PANTOPRAZOLE 40 MG TABLET PO SCH (09:00)
[2021-01-27] MEDS ORDERED: SPIRONOLACTONE 25 MG TAB PO SCH ×2 (09:00)
[2021-01-27] MEDS ORDERED: ASPIRIN 81 MG PO SCH (09:00)
--- NOTE | 2021-01-27 10:26 | P.CRDCN ---
History of Present Illness Consult date: 01/27/21 History of present illness: HISTORY OF PRESENT ILLNESS: This is a 75-year-old male with a past medical history significant for aortic dissection with repair [facility] in 2019, thrombosis of the subclavian artery, hypertension, hyperlipidemia, former nicotine dependence, and COPD. Patient follows in the office with Dr. Escobar. We have been asked to see the patient in consultation for cardiac clearance. Patient examined at the bedside. Patient initially presented to the hospital secondary to an episode of hematemesis. Patient was originally scheduled for bilateral hernia repair today with Dr. Recio. However, the patient follows with Dr. Harding outpatient for his hernia management. The patient states he was seen by Dr. Harding last night and his scheduled was cancelled as the surgeon told him he did not need immediat e surgery for his hernias. The patient denies chest pain or pressure. He reports mild SOB and has a nonproductive cough that he states has been present for two weeks. EKG reveals sinus mechanism with no signs of acute ischemia Laboratory data: WBC 9.4. Hemoglobin 11.0. Platelet count 189. INR 1.9. Sodium 136. Potassium 4.4. BUN 35. Creatinine 1.52. Lactic acid 1.1. ProBNP 493. Current home cardiac medications include warfarin 6 mg Tuesday and 80 mg Tuesday, lisinopril 2.5 mg daily, Aldactone 25 mg daily, metoprolol succinate 12.5 mg daily, Lasix 60 mg daily, and aspirin 81 mg daily Most recent echocardiogram obtained in December 2020 revealed ejection fraction 50-55%, mild mitral regurgitation, and moderate to severe tricuspid regurgitat ion Patient underwent Lexiscan stress test in December 2020 which was negative for ischemia REVIEW OF SYSTEMS: At the time of my exam: CONSTITUTIONAL: Denies fever or chills. HEENT: Denies blurred vision, vision changes, or eye pain. Denies hemoptysis CARDIOVASCULAR: Denies chest pain. Denies orthopnea. Denies PND. Denies palpitations RESPIRATORY: Denies shortness of breath. GASTROINTESTINAL: Denies abdominal pain. Denies nausea or vomiting. HEMATOLOGIC: Denies bleeding disorders. GENITOURINARY: Denies any blood in urine. SKIN: Denies pruitis. Denies rash. PHYSICAL EXAM: VITAL SIGNS: Reviewed. GENERAL: Well-developed in no acute distress. HEENT: Head is normocephalic. Pupils are equal, round. Sclerae anicteric. Mucous membranes of the mouth are moist. Neck supple. No JVD or thyromegaly LUNGS: Respirations even and unlabored. Lungs essentially clear to auscultation bilaterally. HEART: Regular rate and rhythm. S1 and S2 heard. ABDOMEN: Soft. Nondistended. Nontender. EXTREMITIES: Normal range of motion. No clubbing or cyanosis. Peripheral pulses intact. No lower extremity edema NEUROLOGIC: Awake and alert. Oriented x 3. ASSESSMENT: Episode of hematemesis, hemoglobin stable Bilateral inguinal hernias Acute COPD exacerbation History of aortic dissection with repair [facility]2018 History of thrombosis of the subclavian artery Hypertension Hyperlipidemia Former nicotine dependence PLAN: Recent echo and stress test reviewed. Patient was seen by Dr. Escobar in December 2020 outpatient and cleared for surgery with a more than average risk. He remains cleared to proceed with surgery from a cardiac perspective whenever his surgeon deems it appropriate to repair his hernias. Continue current cardiac medications. Resume Coumadin tonight. Stable from a cardiac standpoint. Patient to follow up outpatient with Dr. Escobar. Nurse practitioner note has been reviewed by physician. Signing provider agrees with the documented findings, assessment, and plan of care. Past Medical History Past Medical History: COPD, Dialysis, GERD/Reflux, Hyperlipidemia, Hypertension Additional Past Medical History / Comment(s): Neuromuscular dysfunction of bladder, iron deficiency anemia, neurogenic bladder, pressure ulcers, dissection of thoracic aorta, no longer doing dialysis History of Any Multi-Drug Resistant Organisms: ESBL Date of last positivie culture/infection: 02/14/19 ESBL-E.coli MDRO Source:: Urine Past Surgical History: No Surgical Hx Reported Additional Past Surgical History / Comment(s): May 2018 thoracic aorta repair at [facility] Past Anesthesia/Blood Transfusion Reactions: No Reported Reaction Past Psychological History: No Psychological Hx Reported Smoking Status: Former smoker Past Alcohol Use History: Occasional Past Drug Use History: None Reported Medications and Allergies Home Medications Medication Instructions Recorded Confirmed Type Aspirin 81 mg PO DAILY #0 07/12/18 01/26/21 Rx Furosemide [Lasix] 60 mg PO DAILY 30 Days tab 09/14/18 01/26/21 Rx Metoprolol Succinate (ER) [Toprol 12.5 mg PO DAILY #30 tab.er.24h 09/14/18 01/26/21 Rx XL] Spironolactone [Aldactone] 25 mg PO DAILY #30 tab 09/14/18 01/26/21 Rx lisinopriL [Zestril] 2.5 mg PO DAILY #30 tab 09/14/18 01/26/21 Rx Ferrous Sulfate [Iron (65 MG 325 mg PO DAILY #30 tab 09/15/18 01/26/21 Rx Elemental)] Ipratropium/Albuterol Sulfate 1 puff INHALATION RT-TID #1 09/15/18 01/26/21 Rx [Combivent Respimat Inhaler] mist.inhal Multivit-Min/Folic/Vit K/Lycop 1 tab PO DAILY 02/02/19 01/26/21 History [Men's Multivitamin Tablet] Sertraline [Zoloft] 25 mg PO DAILY 02/02/19 01/26/21 History Tamsulosin [Flomax] 0.4 mg PO HS 02/02/19 01/26/21 History Ascorbic Acid [Vitamin C] 500 mg PO DAILY 01/26/21 01/26/21 History Omeprazole 20 mg PO DAILY 01/26/21 01/26/21 History Warfarin Sodium 6 mg PO SUTUTHSA@1800 01/26/21 01/26/21 History Warfarin Sodium 8 mg PO MOWEFR@1800 01/26/21 01/26/21 History Allergies Allergy/AdvReac Type Severity Reaction Status Date / Time No Known Allergies Allergy Verified 01/26/21 16:23 Physical Exam Vitals: Vital Signs Temp Pulse Pulse Resp BP BP Pulse Ox 01/27/21 08:34 76 01/27/21 08:21 72 01/27/21 01:15 98.2 F 67 20 122/57 95 01/26/21 23:41 98.3 F 78 20 130/58 96 01/26/21 18:14 79 18 123/69 97 01/26/21 16:09 70 18 145/68 97 01/26/21 14:48 64 18 130/65 99 01/26/21 14:31 76 01/26/21 14:19 74 01/26/21 11:53 98.2 F 76 18 154/74 99 Intake and Output 01/26/21 01/27/21 01/27/21 22:59 06:59 14:59 Output Total 300 100 Balance -300 -100 Output: Urine 300 100 Other: Weight 50.802 kg Results 01/27/21 06:12 01/27/21 06:12 Cardiac Enzymes 01/26/21 01/27/21 Range/Units 12:40 06:12 AST 32 26 (17-59) U/L Coagulation 01/26/21 01/27/21 Range/Units 12:40 06:12 PT 20.5 H 18.6 H (9.0-12.0) sec APTT 32.2 H (22.0-30.0) sec CBC 01/26/21 01/27/21 Range/Units 12:40 06:12 WBC 9.1 9.4 (3.8-10.6) k/uL RBC 4.06 L 3.64 L (4.30-5.90) m/uL Hgb 12.2 L 11.0 L (13.0-17.5) gm/dL Hct 38.0 L 34.1 L (39.0-53.0) % Plt Count 195 189 (150-450) k/uL Comprehensive Metabolic Panel 01/26/21 01/27/21 Range/Units 12:40 06:12 Sodium 137 136 L (137-145) mmol/L Potassium 4.7 4.4 (3.5-5.1) mmol/L Chloride 100 104 (98-107) mmol/L Carbon Dioxide 29 26 (22-30) mmol/L BUN 36 H 35 H (9-20) mg/dL Creatinine 1.63 H 1.52 H (0.66-1.25) mg/dL Glucose 71 L 88 (74-99) mg/dL Calcium 8.9 8.7 (8.4-10.2) mg/dL AST 32 26 (17-59) U/L ALT 20 19 (4-49) U/L Alkaline Phosphatase 75 69 (38-126) U/L Total Protein 6.9 6.3 (6.3-8.2) g/dL Albumin 4.0 3.5 (3.5-5.0) g/dL Current Medications Generic Name Dose Route Start Last Admin Trade Name Freq PRN Reason Stop Dose Admin Acetaminophen 650 mg 01/26/21 15:43 Acetaminophen Tab 325 Mg Tab PO Q6HR PRN Mild Pain or Fever > 100.5 Albuterol/Ipratropium 3 ml 01/27/21 08:00 01/27/21 08:21 Ipratropium-Albuterol 3 Ml Neb INHALATION 3 ml RT-TID HOME Administration Aspirin 81 mg 01/27/21 09:00 01/27/21 09:35 Aspirin 81 Mg PO 81 mg DAILY HOME Administration Furosemide 60 mg 01/27/21 09:00 01/27/21 09:34 Furosemide 20 Mg Tab PO 60 mg DAILY HOME Administration Hydromorphone HCl 0.5 mg 01/27/21 07:00 Hydromorphone 0.5 Mg/0.5 Ml Syringe IVP 01/27/21 23:00 Q5M PRN Phase I - Pain Control Lactated Ringer's 1,000 mls @ 20 mls/hr 01/27/21 06:49 01/27/21 09:37 Lactated Ringers IV 20 mls/hr .Q24H HOME Administration Lidocaine HCl 0.1 ml 01/27/21 06:49 Lidocaine 1% (10mg/Ml) For Iv Start INTRADERMA PER PROTOCOL PRN IV Start Lisinopril 2.5 mg 01/27/21 09:00 01/27/21 09:36 Lisinopril 2.5 Mg Tab PO 2.5 mg DAILY HOME Administration Metoprolol Succinate 12.5 mg 01/27/21 09:00 01/27/21 09:34 Metoprolol Succinate (Er) 25 Mg Tab.Er.24h PO 12.5 mg DAILY HOME Administration Miscellaneous Information 1 each 01/26/21 13:15 Rx Info: Iv Contrast Was Given 1 Each Misc MISCELLANE 01/28/21 13:17 DAILY PRN Per Protocol Miscellaneous Information 1 each 01/26/21 21:05 Warfarin Per Pharmacy MISCELLANE DIRECTED PRN Per Protocol Morphine Sulfate 4 mg 01/26/21 15:43 Morphine Sulfate 4 Mg/Ml Syringe IV Q4HR PRN Severe Pain Naloxone HCl 0.2 mg 01/26/21 15:43 Naloxone 0.4 Mg/Ml 1 Ml Vial IV Q2M PRN Opioid Reversal Ondansetron HCl 4 mg 01/26/21 15:43 Ondansetron 4 Mg/2 Ml Vial IVP Q8HR PRN Nausea And Vomiting Pantoprazole Sodium 40 mg 01/27/21 09:00 01/27/21 09:34 Pantoprazole 40 Mg Tablet PO 40 mg DAILY [facility] Administration Prednisone 40 mg 01/27/21 09:00 01/27/21 09:34 Prednisone 20 Mg Tab PO 40 mg DAILY HOME Administration Sertraline HCl 25 mg 01/27/21 09:00 01/27/21 09:36 Sertraline 25 Mg Tab PO 25 mg DAILY [facility] Administration Spironolactone 25 mg 01/27/21 09:00 01/27/21 09:35 Spironolactone 25 Mg Tab PO 25 mg DAILY [facility] Administration Tamsulosin HCl 0.4 mg 01/27/21 18:30 Tamsulosin 0.4 Mg Cap.Er.24h PO PC-SUPPER [facility] Warfarin Sodium 8 mg 01/26/21 21:30 Warfarin 2 Mg Tab PO [email or web address] [facility] Protocol Warfarin Sodium 6 mg 01/27/21 18:00 Warfarin 3 Mg Tab PO [id number] [facility] Protocol Intake and Output 01/26/21 01/27/21 01/27/21 22:59 06:59 14:59 Output Total 300 100 Balance -300 -100 Output: Urine 300 100 Other: Weight 50.802 kg 01/27/21 06:12 01/27/21 06:12
--- NOTE | 2021-01-27 13:30 | P.GSCN ---
History of Present Illness Consult date: 01/26/21 History of present illness: 75 year old male who presented with a CC of hemoptysis. Patient was also complaining of some left groin pain after coughing. I was asked for second opinion for surgical opinion. Patient has known right inguinal hernia with colon. He was awaiting cardiac and medical clearance for elective surgery. Patient has significant CHF with EF on last echo at or below 20%. He is also on anticoagulation. Today he states his groin is feeling better. Denies nausea or vomiting. No other complaints. Past Medical History Past Medical History: COPD, Dialysis, GERD/Reflux, Hyperlipidemia, Hypertension Additional Past Medical History / Comment(s): Neuromuscular dysfunction of bladder, iron deficiency anemia, neurogenic bladder, pressure ulcers, dissection of thoracic aorta, no longer doing dialysis History of Any Multi-Drug Resistant Organisms: ESBL Year Discovered:: 02/14/19 ESBL-E.coli MDRO Source:: Urine Past Surgical History: No Surgical Hx Reported Additional Past Surgical History / Comment(s): May 2018 thoracic aorta repair at [facility] Past Anesthesia/Blood Transfusion Reactions: No Reported Reaction Past Psychological History: No Psychological Hx Reported Smoking Status: Former smoker Past Alcohol Use History: Occasional Past Drug Use History: None Reported Medications and Allergies Home Medications Medication Instructions Recorded Confirmed Type Aspirin 81 mg PO DAILY #0 07/12/18 01/26/21 Rx Furosemide [Lasix] 60 mg PO DAILY 30 Days tab 09/14/18 01/26/21 Rx Metoprolol Succinate (ER) [Toprol 12.5 mg PO DAILY #30 tab.er.24h 09/14/18 01/26/21 Rx XL] Spironolactone [Aldactone] 25 mg PO DAILY #30 tab 09/14/18 01/26/21 Rx lisinopriL [Zestril] 2.5 mg PO DAILY #30 tab 09/14/18 01/26/21 Rx Ferrous Sulfate [Iron (65 MG 325 mg PO DAILY #30 tab 09/15/18 01/26/21 Rx Elemental)] Ipratropium/Albuterol Sulfate 1 puff INHALATION RT-TID #1 09/15/18 01/26/21 Rx [Combivent Respimat Inhaler] mist.inhal Multivit-Min/Folic/Vit K/Lycop 1 tab PO DAILY 02/02/19 01/26/21 History [Men's Multivitamin Tablet] Sertraline [Zoloft] 25 mg PO DAILY 02/02/19 01/26/21 History Tamsulosin [Flomax] 0.4 mg PO HS 02/02/19 01/26/21 History Ascorbic Acid [Vitamin C] 500 mg PO DAILY 01/26/21 01/26/21 History Omeprazole 20 mg PO DAILY 01/26/21 01/26/21 History Warfarin Sodium 6 mg PO SUTUTHSA@1800 01/26/21 01/26/21 History Warfarin Sodium 8 mg PO MOWEFR@1800 01/26/21 01/26/21 History Allergies Allergy/AdvReac Type Severity Reaction Status Date / Time No Known Allergies Allergy Verified 01/26/21 16:23 Surgical - Exam Osteopathic Statement: *. No significant issues noted on an osteopathic structural exam other than those noted in the History and Physical/Consult. Vital Signs Temp Pulse Resp BP Pulse Ox 98.2 F 76 18 154/74 99 01/26/21 11:53 01/26/21 11:53 01/26/21 11:53 01/26/21 11:53 01/26/21 11:53 - General well developed, well nourished, no distress - Eyes PERRL - Neck trachea midline - Respiratory normal expansion, normal respiratory effort - Abdomen S/NT/ND Bilateral inguinal hernias both easily reducible - Neurologic normal coordination, normal sensation - Psychiatric oriented to time, oriented to person, oriented to place Results - Labs 01/27/21 06:12 01/27/21 06:12 Abnormal Lab Results - Last 24 Hours (Table) 01/27/21 01/27/21 01/27/21 Range/Units 06:12 06:12 06:12 RBC 3.64 L (4.30-5.90) m/uL Hgb 11.0 L (13.0-17.5) gm/dL Hct 34.1 L (39.0-53.0) % PT 18.6 H (9.0-12.0) sec INR 1.9 H (<1.2) Sodium 136 L (137-145) mmol/L BUN 35 H (9-20) mg/dL Creatinine 1.52 H (0.66-1.25) mg/dL Diabetes panel 01/27/21 Range/Units 06:12 Sodium 136 L (137-145) mmol/L Potassium 4.4 (3.5-5.1) mmol/L Chloride 104 (98-107) mmol/L Carbon Dioxide 26 (22-30) mmol/L BUN 35 H (9-20) mg/dL Creatinine 1.52 H (0.66-1.25) mg/dL Glucose 88 (74-99) mg/dL Calcium 8.7 (8.4-10.2) mg/dL AST 26 (17-59) U/L ALT 19 (4-49) U/L Alkaline Phosphatase 69 (38-126) U/L Total Protein 6.3 (6.3-8.2) g/dL Albumin 3.5 (3.5-5.0) g/dL Calcium panel 01/27/21 Range/Units 06:12 Calcium 8.7 (8.4-10.2) mg/dL Albumin 3.5 (3.5-5.0) g/dL Pituitary panel 01/27/21 Range/Units 06:12 Sodium 136 L (137-145) mmol/L Potassium 4.4 (3.5-5.1) mmol/L Chloride 104 (98-107) mmol/L Carbon Dioxide 26 (22-30) mmol/L BUN 35 H (9-20) mg/dL Creatinine 1.52 H (0.66-1.25) mg/dL Glucose 88 (74-99) mg/dL Calcium 8.7 (8.4-10.2) mg/dL Adrenal panel 01/27/21 Range/Units 06:12 Sodium 136 L (137-145) mmol/L Potassium 4.4 (3.5-5.1) mmol/L Chloride 104 (98-107) mmol/L Carbon Dioxide 26 (22-30) mmol/L BUN 35 H (9-20) mg/dL Creatinine 1.52 H (0.66-1.25) mg/dL Glucose 88 (74-99) mg/dL Calcium 8.7 (8.4-10.2) mg/dL Total Bilirubin 0.2 (0.2-1.3) mg/dL AST 26 (17-59) U/L ALT 19 (4-49) U/L Alkaline Phosphatase 69 (38-126) U/L Total Protein 6.3 (6.3-8.2) g/dL Albumin 3.5 (3.5-5.0) g/dL Assessment and Plan Assessment: Bilateral inguinal hernias Plan: Both inguinal hernias are easily reducible, no signs of incarceration or strangulation. Given the patients medical comorbiditites and anticoagulation he is very high risk for surgery. Patient can follow up as an outpatient where medical and cardiac optimization and clearance can be obtained. No plans for immediate surgical intervention.
[2021-01-27 13:36] VITALS: BMI 17.0
[2021-01-27 14:40] VITALS: BP 137/62; RESP 18; TEMP 97
--- NOTE | 2021-01-27 14:45 | P.DS ---
Providers Date of admission: 01/26/21 15:43 Attending physician: Jay Herrmann MD Consults: 01/26/21 15:55 Consult Physician Routine Consulting Provider: Nancy Mahajan Consult Reason/Comments: inguinal hernias Do you want consulting provider notified?: Yes, Notify in am Primary care physician: [facility] Course: 75 years old gentleman with past medical history of a thoracic aortic aneurysm status post repair [facility] in May 2018, with history of cardiomyopathy, nonischemic, history of systolic congestive heart failure, hyperlipidemia, history of neurogenic bladder arm status post uroloft in 2019, ex-smoker, history of chronic renal insufficiency COPD, hypertension, hyperlipidemia, GERD, history of malnutrition, history of iron deficiency anemia currently living in with his family on patient of Dr. healy who he has been seen for a nonreducible hernia on the right. Patient was asked to come to the ER if patient develops any blood per rectum or mouth. Patient endorses an episode of hematemesis, associated with lower abdominal pain. Patient denies any nausea or vomiting. He denies any diarrhea or constipation or melena. In the ER patient underwent a computed tomography scan of the chest abdomen and pelvis that suggesting an old aneurysm repair with stent placement in the thoracic aorta. Inferior to the thoracic aortic stent there is aortic dissection which appears chronic sigmoid diverticulosis seen writing [place] hernia containing nonobstructed loop of colon seen. Small left inguinal hernia containing mesenteric fat is also present. Labs are reviewed patient a WBC of 9.1 hemoglobin 12.2 platelets 195 INR 2.1 BUN 36 creatinine 1.63. UA is negative: COVID is negative. Vital signs stable with afebrile pulse 70 respiratory rate 18 blood pressure 145/68 oxygen saturation 97% on room air. Patient would need likely surgery for the incarcerated right inguinal hernia. Surgery consult placed. Patient would need cardiac clearance before undergoing surgery. Echocardiogram ordered. Repeat Ordered for Tomorrow Morning 01/27 patient examined bedside no new episodes of hematemesis. Patient was cleared by cardiology and surgery with plan to perform bilateral [place] hernia repair as outpatient. Patient had Lexiscan stress test in December 2020 which was negative. Patient had no episodes of hematemesis. Hemoglobin today is 11. INR 1.9. Her Coumadin can be re-started. CT chest abdomen and pelvis revealed no source of bleed was noted. If patient continues to have an episode of hematemesis is recommended to come to the hospital. Continue omeprazole 20 mg by mouth daily. Physical exam - Constitutional General appearance: cooperative, no acute distress, appears stated age - Respiratory Respiratory: bilateral: CTA, negative: diminished, dullness, rales, rhonchi - Cardiovascular Rhythm: regular Heart sounds: normal: S1, S2 Abnormal Heart Sounds: no systolic murmur, no diastolic murmur, no rub, no S3 Gallop, no S4 Gallop, no click, no other - Gastrointestinal General gastrointestinal: normal bowel sounds, soft - Genitourinary bilateral inguinal hernias noted, large right sided nonreducible hernia, nontender on palpation involving the scrotum, left inguinal fullness tender to palpate mildly reducible - Psychiatric Psychiatric: A&O x's 3, appropriate affect Assessment and plan #1 hematemesis likely gastritis. #2 bilateral inguinal hernia that needs repair. #3 thoracic aorta aneurysm status post aortic stent with dissection involving the distal descending aorta #4 chronic systolic congestive heart failure #5 hypertension #6 history of BPH with neurogenic bladder status urolift [address] Garcia #7 COPD #8 depression Disposition. Patient information for assisted living facility. licensing worker was consulted. Patient Condition at Discharge: Stable Plan - Discharge Summary Discharge Rx Participant: No New Discharge Prescriptions: Continue Aspirin 81 mg PO DAILY #0 Spironolactone [Aldactone] 25 mg PO DAILY #30 tab Furosemide [Lasix] 60 mg PO DAILY 30 Days tab Metoprolol Succinate (ER) [Toprol XL] 12.5 mg PO DAILY #30 tab.er.24h lisinopriL [Zestril] 2.5 mg PO DAILY #30 tab Ipratropium/Albuterol Sulfate [Combivent Respimat Inhaler] 1 puff INHALATION RT-TID #1 mist.inhal Ferrous Sulfate [Iron (65 MG Elemental)] 325 mg PO DAILY #30 tab Multivit-Min/Folic/Vit K/Lycop [Men's Multivitamin Tablet] 1 tab PO DAILY Tamsulosin [Flomax] 0.4 mg PO HS Sertraline [Zoloft] 25 mg PO DAILY Omeprazole 20 mg PO DAILY Warfarin Sodium 6 mg PO SUTUTHSA@1800 Warfarin Sodium 8 mg PO MOWEFR@1800 Ascorbic Acid [Vitamin C] 500 mg PO DAILY Discharge Medication List Aspirin 81 mg PO DAILY #0 07/12/18 [Rx] Furosemide [Lasix] 60 mg PO DAILY 30 Days tab 09/14/18 [Rx] Metoprolol Succinate (ER) [Toprol XL] 12.5 mg PO DAILY #30 tab.er.24h 09/14/18 [Rx] Spironolactone [Aldactone] 25 mg PO DAILY #30 tab 09/14/18 [Rx] lisinopriL [Zestril] 2.5 mg PO DAILY #30 tab 09/14/18 [Rx] Ferrous Sulfate [Iron (65 MG Elemental)] 325 mg PO DAILY #30 tab 09/15/18 [Rx] Ipratropium/Albuterol Sulfate [Combivent Respimat Inhaler] 1 puff INHALATION RT- TID #1 mist.inhal 09/15/18 [Rx] Multivit-Min/Folic/Vit K/Lycop [Men's Multivitamin Tablet] 1 tab PO DAILY 02/02/19 [History] Sertraline [Zoloft] 25 mg PO DAILY 02/02/19 [History] Tamsulosin [Flomax] 0.4 mg PO HS 02/02/19 [History] Ascorbic Acid [Vitamin C] 500 mg PO DAILY 01/26/21 [History] Omeprazole 20 mg PO DAILY 01/26/21 [History] Warfarin Sodium 6 mg PO SUTUTHSA@1800 01/26/21 [History] Warfarin Sodium 8 mg PO MOWEFR@1800 01/26/21 [History] Follow up Appointment(s)/Referral(s): Ozzy Padilla MD [Primary Care Provider] - 1-2 days Discharge Disposition: HOME WITH HOME HEALTH SERVICES
[2021-01-27 16:20] VITALS: PULSE 76
[2021-01-27] MEDS ORDERED: WARFARIN 3 MG TAB PO SCH (18:00)
== END 2021-01-27 17:39 | disposition home health service (06) ==
LOC: EC 11:51 → 6NMEDSUR 15:43
PROVIDERS: ADMIT Internal Medicine; ATTEND Internal Medicine
DX: K92.0 Hematemesis (principal); K40.20 Bilateral inguinal hernia, without obstruction or gangrene, not specified as recurrent; I71.2 Thoracic aortic aneurysm, without rupture; I71.00 Dissection of unspecified site of aorta; I71.01 Dissection of thoracic aorta; R42 Dizziness and giddiness; R53.1 Weakness; I11.0 Hypertensive heart disease with heart failure; I50.22 Chronic systolic (congestive) heart failure; N40.0 Benign prostatic hyperplasia without lower urinary tract symptoms; N31.9 Neuromuscular dysfunction of bladder, unspecified; J44.9 Chronic obstructive pulmonary disease, unspecified; K57.30 Diverticulosis of large intestine without perforation or abscess without bleeding; K21.9 Gastro-esophageal reflux disease without esophagitis; D50.9 Iron deficiency anemia, unspecified; F32.9 Major depressive disorder, single episode, unspecified; E78.5 Hyperlipidemia, unspecified; Z20.822 Contact with and (suspected) exposure to COVID-19; Z79.82 Long term (current) use of aspirin; Z79.01 Long term (current) use of anticoagulants; Z79.899 Other long term (current) drug therapy; Z16.24 Resistance to multiple antibiotics; Z86.718 Personal history of other venous thrombosis and embolism; Z87.891 Personal history of nicotine dependence
CPT/HCPCS: 99291; 96374; 96375; 96361; 36415; 94640 ×3; 93005; 83880; 80053 ×2; 82150; 83605; 83690; 85025 ×2; 85610 ×2; 85730; 81003; 87635; 74019; 71260; 74177; G0378 ×2; J1100; J2405; J7512 ×2; Q9967

== ENCOUNTER 2021-10-18 08:58 | Emergency (ER) | payer MEDICARE, OTHER ==
[2021-10-18 09:07] VITALS: BP 113/56; PULSE 85; RESP 19; TEMP 97.9
--- NOTE | 2021-10-18 10:36 | ED ---
Wound/Laceration HPI - General Chief Complaint: Wound/Laceration Stated Complaint: Skin tears Time Seen by Provider: 10/18/21 09:14 Source: patient Mode of arrival: ambulatory Limitations: no limitations - History of Present Illness Initial Comments: Patient is a 76-year-old male presenting with chief complaint of wound that won't stop bleeding. Patient is on Coumadin, he states that yesterday his dog scratched his arm and he has had difficulty controlling the bleeding. He said he went to his doctor's office who applied a pressure dressing to one of the wounds. He dressed the other wound himself with a bandage that he has soaked through. He denies any pain or discomfort, redness, swelling, discharge, difficulty with range of motion. - Related Data Home Medications Medication Instructions Recorded Confirmed Sertraline [Zoloft] 25 mg PO DAILY 02/02/19 10/18/21 Tamsulosin [Flomax] 0.4 mg PO HS 02/02/19 10/18/21 Omeprazole 20 mg PO DAILY 01/26/21 10/18/21 Warfarin Sodium 6 mg PO MOWEFR@1800 01/26/21 10/18/21 Warfarin Sodium 8 mg PO SUTUTHSA@1600 01/26/21 10/18/21 Ipratropium-Albuterol Nebulize 3 ml INHALATION RT-QID PRN 10/18/21 10/18/21 [Duoneb 0.5 mg-3 mg/3 ml Soln] Mirabegron [Myrbetriq] 50 mg PO DAILY 10/18/21 10/18/21 Previous Rx's Medication Instructions Recorded Furosemide [Lasix] 60 mg PO DAILY 30 Days tab 09/14/18 Metoprolol Succinate (ER) [Toprol 12.5 mg PO DAILY #30 tab.er.24h 09/14/18 XL] Spironolactone [Aldactone] 25 mg PO DAILY #30 tab 09/14/18 lisinopriL [Zestril] 2.5 mg PO DAILY #30 tab 09/14/18 Ipratropium/Albuterol Sulfate 1 puff INHALATION RT-TID #1 09/15/18 [Combivent Respimat Inhaler] mist.inhal Allergies Allergy/AdvReac Type Severity Reaction Status Date / Time No Known Allergies Allergy Verified 10/18/21 17:29 Review of Systems ROS Statement: Those systems with pertinent positive or pertinent negative responses have been documented in the HPI. ROS Other: All systems not noted in ROS Statement are negative. Past Medical History Past Medical History: COPD, Dialysis, GERD/Reflux, Hyperlipidemia, Hypertension Additional Past Medical History / Comment(s): Neuromuscular dysfunction of bladder, iron deficiency anemia, neurogenic bladder, pressure ulcers, dissection of thoracic aorta, no longer doing dialysis History of Any Multi-Drug Resistant Organisms: ESBL Date of last positivie culture/infection: 02/14/19 ESBL-E.coli MDRO Source:: Urine Past Surgical History: No Surgical Hx Reported Additional Past Surgical History / Comment(s): May 2018 thoracic aorta repair at [facility] Past Anesthesia/Blood Transfusion Reactions: No Reported Reaction Past Psychological History: No Psychological Hx Reported Smoking Status: Former smoker Past Alcohol Use History: Occasional Past Drug Use History: None Reported General Exam Limitations: no limitations General appearance: alert, in no apparent distress Head exam: Present: atraumatic, normocephalic, normal inspection Eye exam: Present: normal appearance, EOMI. Absent: scleral icterus, periorbital swelling Neck exam: Present: normal inspection Left Upper Arm exam: Present: full ROM. Absent: tenderness, swelling Elbow exam: Present: normal inspection, full ROM Forearm Wrist exam: Present: full ROM, abrasion. Absent: tenderness, swelling Neurological exam: Present: alert, oriented X3, CN II-XII intact Psychiatric exam: Present: normal affect, normal mood Course Vital Signs 10/18/21 10/18/21 09:03 11:40 Temperature 97.9 F 97.9 F Pulse Rate 85 85 Respiratory 19 19 Rate Blood Pressure 113/56 113/56 O2 Sat by Pulse 97 97 Oximetry Medical Decision Making - Medical Decision Making Patient is a 76-year-old male presenting with chief complaint of bleeding wounds to the left arm. Patient states that his dog scratched him yesterday, he is on Coumadin and has difficulty controlling the bleeding. A pressure dressing was applied by his physician to one of the wounds, and he dressed the other wounds himself, but he has been bleeding through this dressing. On examination there are 2 small wounds to the left arm with small amount of bleeding. Wounds are clean, no signs of swelling or infection. Pressure dressing was applied to the wounds, on reassessment bleeding has stopped. Wounds were dressed with bandage and ivan wrap was applied to the arm. Patient states his last tetanus shot was last year. Follow-up with PCP in one to 2 days. Report back to ER with any new or worsening symptoms. Discussed return parameters answered all questions. Disposition Clinical Impression: Abrasion Disposition: HOME SELF-CARE Condition: Good Instructions (If sedation given, give patient instructions): Abrasion (ED) Additional Instructions: Follow-up with PCP in one to 2 days. Report back to ER with any new or worsening symptoms. Is patient prescribed a controlled substance at d/c from ED?: No Referrals: Ozzy Padilla MD [Primary Care Provider] - 1-2 days Time of Disposition: 11:43
[2021-10-18] MEDS ORDERED: GELATIN SPONGE,ABSORB (SMALL) 1 EACH SPONGE TOPICAL STA (10:54)
== END 2021-10-18 11:42 | disposition home or self-care (01) ==
LOC: EC 08:58
DX: S50.812A Abrasion of left forearm, initial encounter (principal); J44.9 Chronic obstructive pulmonary disease, unspecified; I10 Essential (primary) hypertension; E78.5 Hyperlipidemia, unspecified; Z87.891 Personal history of nicotine dependence; Z79.899 Other long term (current) drug therapy; W54.0XXA Bitten by dog, initial encounter
CPT/HCPCS: 99283

== ENCOUNTER 2021-10-18 14:42 | Inpatient (IN) | payer MEDICARE, OTHER ==
[2021-10-18] MEDS ORDERED: GELATIN SPONGE,ABSORB (SMALL) 1 EACH SPONGE TOPICAL STA (15:45)
[2021-10-18 16:05] LABS: Basophils # (A) 0.1 k/uL (0-0.2); Basophils % (A) 1 %; Eosinophils # (A) 0.3 k/uL (0-0.7); Eosinophils % (A) 3 %; HCT 40.8 % (39.0-53.0); HGB 12.8 gm/dL (13.0-17.5); Lymphocytes # (A) 1.8 k/uL (1.0-4.8); Lymphocytes % (A) 20 %; MCH 29.8 pg (25.0-35.0); MCHC 31.3 g/dL (31.0-37.0); MCV 95.3 fL (80.0-100.0); Mean Platelet Volume 9.1; Monocytes # (A) 0.8 k/uL (0-1.0); Monocytes % (A) 9 %; Neutrophils # (A) 6.1 k/uL (1.3-7.7); Neutrophils % (A) 66 %; Platelet Count 149 k/uL (150-450); RBC 4.29 m/uL (4.30-5.90); RDW 13.2 % (11.5-15.5); WBC 9.2 k/uL (3.8-10.6)
[2021-10-18 16:13] LABS: INR 2.4 (<1.2); Partial Thromboplastin Time 34.3 sec (22.0-30.0); Prothrombin Time 23.9 sec (9.0-12.0)
[2021-10-18 16:14] LABS: Albumin 4.7 g/dL (3.5-5.0); Calcium 9.1 mg/dL (8.4-10.2); Potassium 4.8 mmol/L (3.5-5.1); Total Bilirubin 0.3 mg/dL (0.2-1.3); Total Protein 7.6 g/dL (6.3-8.2)
[2021-10-18] MEDS ORDERED: SODIUM CHLORIDE 0.9% 1,000 ML IV ONE (16:57)
[2021-10-18] MEDS ORDERED: NALOXONE 0.4 MG/ML 1 ML VIAL IV PRN (17:04)
--- NOTE | 2021-10-18 17:06 | ED ---
Skin/Abscess/FB HPI - General Chief complaint: Skin/Abscess/Foreign Body Stated complaint: skin tears Time Seen by Provider: 10/18/21 15:31 Source: patient Mode of arrival: ambulatory Limitations: no limitations - History of Present Illness Initial comments: patient is a 76-year-old male with history of COPD, hypertension, hyperlipidemia currently on warfarin presenting with chief complaint of recurrent bleeding scrapes. Patient was seen in this ER earlier today for the same complaint, bleeding was well controlled at the time of discharge. Patient states he went home and "bumped his arm" and bleeding resumed on one of the scratches, as well as began to other pre-existing scratches. Patient denies any other complaints. Patient states he has shortness of breath at baseline, and is not worse than normal denies chest pain, palpitations, weakness, abdominal pain, nausea, vomiting, diarrhea, hematochezia, melena, hematuria, dysuria - Related Data Home Medications Medication Instructions Recorded Confirmed Multivit-Min/Folic/Vit K/Lycop 1 tab PO DAILY 02/02/19 01/26/21 [Men's Multivitamin Tablet] Sertraline [Zoloft] 25 mg PO DAILY 02/02/19 01/26/21 Tamsulosin [Flomax] 0.4 mg PO HS 02/02/19 01/26/21 Ascorbic Acid [Vitamin C] 500 mg PO DAILY 01/26/21 01/26/21 Omeprazole 20 mg PO DAILY 01/26/21 01/26/21 Warfarin Sodium 6 mg PO SUTUTHSA@1800 01/26/21 01/26/21 Warfarin Sodium 8 mg PO MOWEFR@1800 01/26/21 01/26/21 Previous Rx's Medication Instructions Recorded Aspirin 81 mg PO DAILY #0 07/12/18 Furosemide [Lasix] 60 mg PO DAILY 30 Days tab 09/14/18 Metoprolol Succinate (ER) [Toprol 12.5 mg PO DAILY #30 tab.er.24h 09/14/18 XL] Spironolactone [Aldactone] 25 mg PO DAILY #30 tab 09/14/18 lisinopriL [Zestril] 2.5 mg PO DAILY #30 tab 09/14/18 Ferrous Sulfate [Iron (65 MG 325 mg PO DAILY #30 tab 09/15/18 Elemental)] Ipratropium/Albuterol Sulfate 1 puff INHALATION RT-TID #1 09/15/18 [Combivent Respimat Inhaler] mist.inhal Allergies Allergy/AdvReac Type Severity Reaction Status Date / Time No Known Allergies Allergy Verified 10/18/21 15:26 Review of Systems ROS Statement: Those systems with pertinent positive or pertinent negative responses have been documented in the HPI. ROS Other: All systems not noted in ROS Statement are negative. Past Medical History Past Medical History: COPD, Dialysis, GERD/Reflux, Hyperlipidemia, Hypertension Additional Past Medical History / Comment(s): Neuromuscular dysfunction of bladder, iron deficiency anemia, neurogenic bladder, pressure ulcers, dissection of thoracic aorta, no longer doing dialysis History of Any Multi-Drug Resistant Organisms: ESBL Date of last positivie culture/infection: 02/14/19 ESBL-E.coli MDRO Source:: Urine Past Surgical History: No Surgical Hx Reported Additional Past Surgical History / Comment(s): May 2018 thoracic aorta repair at [facility] Past Anesthesia/Blood Transfusion Reactions: No Reported Reaction Past Psychological History: No Psychological Hx Reported Smoking Status: Former smoker Past Alcohol Use History: Occasional Past Drug Use History: None Reported General Exam Limitations: no limitations General appearance: alert, in no apparent distress Head exam: Present: atraumatic, normocephalic, normal inspection Neck exam: Present: normal inspection Respiratory exam: Present: rales. Absent: respiratory distress, wheezes, rhonchi, stridor Cardiovascular Exam: Present: regular rate, normal rhythm, normal heart sounds. Absent: systolic murmur, diastolic murmur, rubs, gallop, clicks Neurological exam: Present: alert, oriented X3, CN II-XII intact Psychiatric exam: Present: normal affect, normal mood Skin exam: Present: warm, dry, other (3 superficial less than 1 cm abr asions,that are bleeding currently bleeding) Course Vital Signs 10/18/21 15:20 Temperature 98.2 F Pulse Rate 80 Respiratory 18 Rate Blood Pressure 120/67 O2 Sat by Pulse 97 Oximetry Medical Decision Making - Medical Decision Making patient is a 76-year-old male currently on warfarin presenting with chief complaint of recurrent bleeding scrapes to the arm. Patient was here earlier for the same complaint, bleeding was well controlled after pressure dressing was applied. Patient states he bumped his arm at home and bleeding began again. He has no other complaints at this time Gelfoam and pressure dressing were applied, after observation it appears bleeding is controlled. . Lab work was drawn to ensure that his INR is within therapeutic range, INR is 2.4. 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 I'm recommending the patient be admitted for observation for hydration and further management at this DELROY. I spoke with Dr. Devlin who accepted the patient. I conveyed the plan and findings to the patient, he was agreeable. I discussed this case with my attending Dr. Nguyen. - Lab Data Result diagrams: 10/18/21 15:49 10/18/21 15:49 Lab Results 10/18/21 10/18/21 10/18/21 Range/Units 15:49 15:49 15:49 WBC 9.2 (3.8-10.6) k/uL RBC 4.29 L (4.30-5.90) m/uL Hgb 12.8 L (13.0-17.5) gm/dL Hct 40.8 (39.0-53.0) % MCV 95.3 (80.0-100.0) fL MCH 29.8 (25.0-35.0) pg MCHC 31.3 (31.0-37.0) g/dL RDW 13.2 (11.5-15.5) % Plt Count 149 L (150-450) k/uL MPV 9.1 Neutrophils % 66 % Lymphocytes % 20 % Monocytes % 9 % Eosinophils % 3 % Basophils % 1 % Neutrophils # 6.1 (1.3-7.7) k/uL Lymphocytes # 1.8 (1.0-4.8) k/uL Monocytes # 0.8 (0-1.0) k/uL Eosinophils # 0.3 (0-0.7) k/uL Basophils # 0.1 (0-0.2) k/uL PT 23.9 H (9.0-12.0) sec INR 2.4 H (<1.2) APTT 34.3 H (22.0-30.0) sec Sodium 141 (137-145) mmol/L Potassium 4.8 (3.5-5.1) mmol/L Chloride 105 (98-107) mmol/L Carbon Dioxide 26 (22-30) mmol/L Anion Gap 10 mmol/L BUN 56 H (9-20) mg/dL Creatinine 2.37 H (0.66-1.25) mg/dL Est GFR (CKD-EPI)AfAm 30 (>60 ml/min/1.73 sqM) Est GFR (CKD-EPI)NonAf 26 (>60 ml/min/1.73 sqM) Glucose 89 (74-99) mg/dL Calcium 9.1 (8.4-10.2) mg/dL Total Bilirubin 0.3 (0.2-1.3) mg/dL AST 34 (17-59) U/L ALT 20 (4-49) U/L Alkaline Phosphatase 81 (38-126) U/L Total Protein 7.6 (6.3-8.2) g/dL Albumin 4.7 (3.5-5.0) g/dL Disposition Clinical Impression: DELROY (acute kidney injury) Disposition: ADMITTED IP TO THIS [facility] Condition: Fair Time of Disposition: 17:06 Decision to Admit Reason: Admit from EC Decision Date: 10/18/21 Decision Time: 17:06
[2021-10-18] MEDS ORDERED: IPRATROPIUM-ALBUTEROL 3 ML NEB INHALATION PRN ×2 (19:17→20:43)
[2021-10-18] MEDS ORDERED: IPRATROPIUM-ALBUTEROL 3 ML NEB INHALATION SCH (20:00)
[2021-10-18] MEDS ORDERED: WARFARIN 2 MG TAB PO SCH (20:00)
[2021-10-18] MEDS ORDERED: TAMSULOSIN 0.4 MG CAP.ER.24H PO SCH (21:00)
[2021-10-18] MEDS: SODIUM CHLORIDE 0.9% 1,000 ML IV SCH (21:05)
[2021-10-18 21:31] LABS: Appearance,Urine Clear (Clear); Bilirubin,Urine Negative (Negative); Blood,Urine Negative (Negative); Color,Urine Light Yellow; Glucose,Urine (UA) Negative (Negative); Ketones,Urine Negative (Negative); Leukocyte Esterase,Urine Negative (Negative); Nitrite,Urine Negative (Negative); PH, Urine 5.5 (5.0-8.0); Protein,Urine Negative (Negative); Specific Gravity,Urine 1.013 (1.001-1.035); Urobilinogen,Urine <2.0 mg/dL (<2.0)
[2021-10-19] MEDS: IPRATROPIUM-ALBUTEROL 3 ML NEB INHALATION SCH ×4 (07:45→19:50)
--- NOTE | 2021-10-19 08:31 | P.NPCON ---
History of Present Illness - Reason for Consult acute renal failure, chronic renal failure - History of Present Illness Reason for consultation: Acute kidney injury on chronic kidney disease History of present illness: Patient is a 76-year-old male seen in consultation for acute kidney injury on chronic any disease. Patient's creatinine in September 2018 was near 1. In January 2021 was in the range of 1.5-1.6. This admission was elevated at 2.37. UA is noted to be completely benign. Patient states his dog jumped on him from which she has multiple scratches on his arms. Patient states that he notices bleeding from the scratches and came to the hospital. He does take Coumadin and his INR on admission was 2.4. He admits to good urine output. Denies any hematuria or dysuria. No vomiting or diarrhea. No chest pain or shortness of breath. He denies family history of renal disease. Patient states he has history of aortic reconstruction done a urine [facility] in 2018. He was taking lisinopril, spironolactone as well as Lasix at home which are currently held. He's currently receiving normal saline at 50 mL an hour. No history of diabetes. Oral intake has been good. Blood pressure was as low as 104/62 as of yesterday evening. Vital signs stable. General: Awake. No acute distress. HEENT: Head exam is unremarkable. LUNGS: Breath sounds decreased. HEART: Rate and Rhythm are regular. ABDOMEN: Soft, no distention. EXTREMITITES: No edema. Past Medical History Past Medical History: COPD, Dialysis, GERD/Reflux, Hyperlipidemia, Hypertension Additional Past Medical History / Comment(s): Neuromuscular dysfunction of bladder, iron deficiency anemia, neurogenic bladder, pressure ulcers, dissection of thoracic aorta, no longer doing dialysis, previous ETOH abuse History of Any Multi-Drug Resistant Organisms: ESBL Date of last positivie culture/infection: 02/14/19 ESBL-E.coli MDRO Source:: Urine Past Surgical History: No Surgical Hx Reported Additional Past Surgical History / Comment(s): May 2018 thoracic aorta repair at [facility] Past Anesthesia/Blood Transfusion Reactions: No Reported Reaction Past Psychological History: No Psychological Hx Reported Smoking Status: Former smoker Past Alcohol Use History: Abuse, Daily Additional Past Alcohol Use History / Comment(s): quit 1989, began to drink again occasionally 2011 Past Drug Use History: None Reported Additional Drug Use History / Comment(s): pt stopped smoking 10/14/2021 Medications and Allergies Home Medications Medication Instructions Recorded Confirmed Type Furosemide [Lasix] 60 mg PO DAILY 30 Days tab 09/14/18 10/18/21 Rx Metoprolol Succinate (ER) [Toprol 12.5 mg PO DAILY #30 tab.er.24h 09/14/18 10/18/21 Rx XL] Spironolactone [Aldactone] 25 mg PO DAILY #30 tab 09/14/18 10/18/21 Rx lisinopriL [Zestril] 2.5 mg PO DAILY #30 tab 09/14/18 10/18/21 Rx Ipratropium/Albuterol Sulfate 1 puff INHALATION RT-TID #1 09/15/18 10/18/21 Rx [Combivent Respimat Inhaler] mist.inhal Sertraline [Zoloft] 25 mg PO DAILY 02/02/19 10/18/21 History Tamsulosin [Flomax] 0.4 mg PO HS 02/02/19 10/18/21 History Omeprazole 20 mg PO DAILY 01/26/21 10/18/21 History Warfarin Sodium 6 mg PO MOWEFR@1800 01/26/21 10/18/21 History Warfarin Sodium 8 mg PO SUTUTHSA@1600 01/26/21 10/18/21 History Ipratropium-Albuterol Nebulize 3 ml INHALATION RT-QID PRN 10/18/21 10/18/21 History [Duoneb 0.5 mg-3 mg/3 ml Soln] Mirabegron [Myrbetriq] 50 mg PO DAILY 10/18/21 10/18/21 History Allergies Allergy/AdvReac Type Severity Reaction Status Date / Time No Known Allergies Allergy Verified 10/18/21 17:29 Physical Exam Vitals: Vital Signs Temp Pulse Pulse Resp BP BP Pulse Ox 10/19/21 07:54 80 10/19/21 07:46 79 10/19/21 07:00 97.5 F L 56 L 16 157/70 100 10/19/21 02:15 98.0 F 68 15 169/74 95 10/18/21 20:46 84 10/18/21 20:40 80 10/18/21 19:51 98.4 F 69 17 104/62 97 10/18/21 15:20 98.2 F 80 18 120/67 97 Intake and Output 10/18/21 10/19/21 10/19/21 22:59 06:59 14:59 Other: Voiding Method Toilet Toilet Toilet Incontinent Incontinent Incontinent # Voids 3 Weight 55.792 kg Results - Lab Results Most recent lab results Calcium 9.1 mg/dL (8.4-10.2) 10/18/21 15:49 10/18/21 15:49 10/18/21 15:49 Assessment and Plan Plan: Assessment: 1. Acute kidney injury mostly prerenal secondary to hypotension, PADDY inhibitor and diuretics. Creatinine 2.37 on admission. Creatinine in January 2021 was in the range of 1.5-1.6. 2. Chronic kidney disease stage IIIB with baseline creatinine in the range of 1.5-1.6 in January 2021. Etiology is nephrosclerosis. UA benign. 3. Hypertension with chronic kidney disease. 4. Upper extremity scratches/wounds. On antibiotics. 5. History of aortic reconstruction and urine was to [facility] done in 2018. Plan: Maintain normal saline at 50 mL an hour. Continue to hold lisinopril and diuretics. Check renal ultrasound. Check bladder scan to make sure no urinary retention. Avoid nephrotoxins. Add hydralazine 25 mg 3 times daily. Hold for systolic blood pressure less than 120. Follow-up morning labs. Thank you for the consultation. I will continue to follow the patient with you during his hospital stay.
[2021-10-19] MEDS: METOPROLOL SUCCINATE (ER) 25 MG TAB.ER.24H PO SCH (08:50)
[2021-10-19] MEDS: SERTRALINE 25 MG TAB PO SCH (08:50)
[2021-10-19] MEDS: Mirabegron [Myrbetriq] 50 MG Tab.Er.24h PO SCH (08:50)
[2021-10-19] MEDS: PANTOPRAZOLE 40 MG TABLET PO SCH (08:50)
[2021-10-19] MEDS: hydrALAZINE HCL 25 MG TAB PO SCH ×3 (08:53→21:02)
--- NOTE | 2021-10-19 09:06 | P.GSCN ---
History of Present Illness Consult date: 10/19/21 History of present illness: 76-year-old gentleman admitted to the hospital because of bleeding on the arm secondary to trauma aggravated by anticoagulation. He has been having some problems urinating and we are asked to see this patient in consultation. The patient is known to . He did a urolift on the patient in 2018. He has been on Flomax ever since. He states that he has been voiding relatively well but in the last month he has had increasing incontinence. His spontaneous incontinence. Bladder scan residual in this hospitalization was apparently 192 mL. his urine is clear. His last upper urinary tract study was a CAT scan in January 2021 showing normal tract Past Medical History Past Medical History: COPD, Dialysis, GERD/Reflux, Hyperlipidemia, Hypertension Additional Past Medical History / Comment(s): Neuromuscular dysfunction of bladder, iron deficiency anemia, neurogenic bladder, pressure ulcers, dissection of thoracic aorta, no longer doing dialysis, previous ETOH abuse History of Any Multi-Drug Resistant Organisms: ESBL Year Discovered:: 02/14/19 ESBL-E.coli MDRO Source:: Urine Past Surgical History: No Surgical Hx Reported Additional Past Surgical History / Comment(s): May 2018 thoracic aorta repair at [facility] Past Anesthesia/Blood Transfusion Reactions: No Reported Reaction Past Psychological History: No Psychological Hx Reported Smoking Status: Former smoker Past Alcohol Use History: Abuse, Daily Additional Past Alcohol Use History / Comment(s): quit 1989, began to drink again occasionally 2011 Past Drug Use History: None Reported Additional Drug Use History / Comment(s): pt stopped smoking 10/14/2021 Medications and Allergies Home Medications Medication Instructions Recorded Confirmed Type Furosemide [Lasix] 60 mg PO DAILY 30 Days tab 09/14/18 10/18/21 Rx Metoprolol Succinate (ER) [Toprol 12.5 mg PO DAILY #30 tab.er.24h 09/14/18 10/18/21 Rx XL] Spironolactone [Aldactone] 25 mg PO DAILY #30 tab 09/14/18 10/18/21 Rx lisinopriL [Zestril] 2.5 mg PO DAILY #30 tab 09/14/18 10/18/21 Rx Ipratropium/Albuterol Sulfate 1 puff INHALATION RT-TID #1 09/15/18 10/18/21 Rx [Combivent Respimat Inhaler] mist.inhal Sertraline [Zoloft] 25 mg PO DAILY 02/02/19 10/18/21 History Tamsulosin [Flomax] 0.4 mg PO HS 02/02/19 10/18/21 History Omeprazole 20 mg PO DAILY 01/26/21 10/18/21 History Warfarin Sodium 6 mg PO MOWEFR@1800 01/26/21 10/18/21 History Warfarin Sodium 8 mg PO SUTUTHSA@1600 01/26/21 10/18/21 History Ipratropium-Albuterol Nebulize 3 ml INHALATION RT-QID PRN 10/18/21 10/18/21 History [Duoneb 0.5 mg-3 mg/3 ml Soln] Mirabegron [Myrbetriq] 50 mg PO DAILY 10/18/21 10/18/21 History Allergies Allergy/AdvReac Type Severity Reaction Status Date / Time No Known Allergies Allergy Verified 10/18/21 17:29 Surgical - Exam Vital Signs Temp Pulse Resp BP Pulse Ox 98.2 F 80 18 120/67 97 10/18/21 15:20 10/18/21 15:20 10/18/21 15:20 10/18/21 15:20 10/18/21 15:20 - General well developed, well nourished, no distress - Eyes normal ocular movement, no icteric - ENT no hearing loss, no congestion - Neck no masses, trachea midline - Respiratory normal respiratory effort, clear to auscultation - Abdomen Abdomen: soft, non tender, no guarding, no rigid, no rebound - Integumentary no rash, no abnormal pigmentation - Neurologic no disoriented, no combative - Psychiatric oriented to time, oriented to person, oriented to place, speech is normal, memory intact Results - Labs 10/18/21 15:49 10/18/21 15:49 Abnormal Lab Results - Last 24 Hours (Table) 10/18/21 10/18/21 10/18/21 Range/Units 15:49 15:49 15:49 RBC 4.29 L (4.30-5.90) m/uL Hgb 12.8 L (13.0-17.5) gm/dL Plt Count 149 L (150-450) k/uL PT 23.9 H (9.0-12.0) sec INR 2.4 H (<1.2) APTT 34.3 H (22.0-30.0) sec BUN 56 H (9-20) mg/dL Creatinine 2.37 H (0.66-1.25) mg/dL Diabetes panel 10/18/21 Range/Units 15:49 Sodium 141 (137-145) mmol/L Potassium 4.8 (3.5-5.1) mmol/L Chloride 105 (98-107) mmol/L Carbon Dioxide 26 (22-30) mmol/L BUN 56 H (9-20) mg/dL Creatinine 2.37 H (0.66-1.25) mg/dL Glucose 89 (74-99) mg/dL Calcium 9.1 (8.4-10.2) mg/dL AST 34 (17-59) U/L ALT 20 (4-49) U/L Alkaline Phosphatase 81 (38-126) U/L Total Protein 7.6 (6.3-8.2) g/dL Albumin 4.7 (3.5-5.0) g/dL Calcium panel 10/18/21 Range/Units 15:49 Calcium 9.1 (8.4-10.2) mg/dL Albumin 4.7 (3.5-5.0) g/dL Pituitary panel 10/18/21 Range/Units 15:49 Sodium 141 (137-145) mmol/L Potassium 4.8 (3.5-5.1) mmol/L Chloride 105 (98-107) mmol/L Carbon Dioxide 26 (22-30) mmol/L BUN 56 H (9-20) mg/dL Creatinine 2.37 H (0.66-1.25) mg/dL Glucose 89 (74-99) mg/dL Calcium 9.1 (8.4-10.2) mg/dL Adrenal panel 10/18/21 Range/Units 15:49 Sodium 141 (137-145) mmol/L Potassium 4.8 (3.5-5.1) mmol/L Chloride 105 (98-107) mmol/L Carbon Dioxide 26 (22-30) mmol/L BUN 56 H (9-20) mg/dL Creatinine 2.37 H (0.66-1.25) mg/dL Glucose 89 (74-99) mg/dL Calcium 9.1 (8.4-10.2) mg/dL Total Bilirubin 0.3 (0.2-1.3) mg/dL AST 34 (17-59) U/L ALT 20 (4-49) U/L Alkaline Phosphatase 81 (38-126) U/L Total Protein 7.6 (6.3-8.2) g/dL Albumin 4.7 (3.5-5.0) g/dL Assessment and Plan Assessment: Impression: Urinary outlet obstruction acute on chronic. Incomplete bladder emptying. Recommendations: I will increase his Flomax to twice daily and recheck his urine residual. We will follow this patient with you.
[2021-10-19 09:23] LABS: ALT 16 U/L (4-49); AST 26 U/L (17-59); African American GFR (CKD) 50 (>60 ml/min/1.73 sqM); Albumin 3.6 g/dL (3.5-5.0); Albumin/Globulin Ratio 1.6; Alkaline Phosphatase 69 U/L (38-126); Anion Gap 7 mmol/L; Blood Urea Nitrogen 44 mg/dL (9-20); Calcium 7.9 mg/dL (8.4-10.2); Carbon Dioxide 22 mmol/L (22-30); Chloride 111 mmol/L (98-107); Globulin 2.3 g/dL; Glucose 85 mg/dL (74-99); Non-African American GFR(CKD) 43 (>60 ml/min/1.73 sqM); Potassium 4.1 mmol/L (3.5-5.1); Sodium 140 mmol/L (137-145); Total Bilirubin 0.3 mg/dL (0.2-1.3); Total Protein 5.9 g/dL (6.3-8.2)
--- NOTE | 2021-10-19 09:31 | US ---
EXAMINATION TYPE: US kidneys/renal and bladder DATE OF EXAM: 10/19/2021 COMPARISON: CT: 01/26/21 CLINICAL HISTORY: mao. mao EXAM MEASUREMENTS: Right Kidney: 9.0 x 4.6 x 3.6 cm Left Kidney: 8.4 x 4.8 x 4.7 cm Right Kidney: No hydronephrosis or masses seen Left Kidney: Cyst seen in superior pole measuring 1.8 x 1.9 x 1.5 cm. Bladder: wnl Bilateral Jets seen: Yes There is no evidence for hydronephrosis at this point in time. No nephrolithiasis is seen. No solid masses are identified. The urinary bladder is anechoic. Bilateral ureteral jets are seen. IMPRESSION: Stable cyst upper pole left kidney.
[2021-10-19] MEDS: AMPICILLIN-SULBACTAM 1.5 GM in SODIUM CHLORIDE 0.9% 50 ML IVPB SCH ×3 (10:05→21:03)
--- NOTE | 2021-10-19 10:42 | P.HPIM ---
History of Present Illness H&P Date: 10/19/21 HISTORY OF PRESENT ILLNESS This is a 76-year-old male patient of Dr. Ozzy Padilla with past medical history of thoracic aortic aneurysm status post repair 17 at [facility] in May 2018, history of cardiomyopathy nonischemic, history of chronic systolic heart failure, hyperlipidemia, neurogenic bladder status [id number] off to in 2019, history of tobacco use and dependence, chronic kidney disease stage III, COPD, hypertension, hyperlipidemia, gastroesophageal reflux disease, iron deficiency anemia. Patient also has bilateral inguinal hernia which he has met with Dr. healy for repair but because of his multiple medical problems this is been delayed. He states he has been diagnosed with stage IV COPD. He also states he has ongoing problems with controlling his bladder and difficulty urinating. Patient also states that his dog jumped up and he has multiple scratches on his arms. He noticed bleeding from the scratches and came to the hospital for evaluation. Patient was found to be afebrile, heart rate 80, blood pressure 120/67, pulse ox 97% on room air. WBC 9.2, hemoglobin 12.8, platelet count 149. INR is 2.4. Surprisingly BUN was 56 and creatinine 2.37. Repeat this morning it is BUN 44 creatinine 1.57. Liver function tests were normal and electrolytes were normal. Urinalysis was negative. Renal ultrasound revealed stable cyst upper pole left kidney. In the emergency center, patient was given 1 L of IV fluids and a nebulizer treatment, admitted to the [facility] floor. Patient has been seen by nephrology with recommendations to maintain normal saline at 50 mL per hour, hold lisinopril and diuretics and bladder scan, avoid nephrotoxins, added hydralazine 25 mg twice daily with parameters. Repeat blood work was ordered for the morning. Patient is also been seen by urology for urinary outlet obstruction and incomplete bladder emptying, recommended increasing Flomax to twice daily REVIEW OF SYSTEMS Constitutional: No fever, no chills, no night sweats. No weight change. No weakness, fatigue or lethargy. No daytime sleepiness. EENT: No headache. No blurred vision or double vision, no loss of vision. No loss of Hearing, no ringing in the ears, no dizziness. No nasal drainage or congestion. No epistaxis. No sore throat. Lungs: No shortness of breath, cough, no sputum production. No wheezing. Cardiovascular: No chest pain, no lower extremity edema. No palpitations. No paroxysmal nocturnal dyspnea. No orthopnea. No lightheadedness or dizziness. No syncopal episodes. Abdominal: No abdominal pain. No nausea, vomiting. No diarrhea. No constipation. No bloody or tarry stools. No loss of appetite. Genitourinary: No dysuria, increased frequency, urgency. No urinary retention. Musculoskeletal: No myalgias. No muscle weakness, no gait dysfunction, no frequent falls. No back pain. No neck pain. Integumentary: No wounds, no lesions. No rash or pruritus. No unusual bruis ing. No change in hair or nails. Neurologic: No aphasia. No facial droop. No change in mentation. No head injury. No headache. No paralysis. No paresthesia. Psychiatric: No depression. No anxiety. No mood swings. Endocrine: No abnormal blood sugars. No weight change. No excessive sweating or thirst. No cold intolerance. SOCIAL HISTORY Patient was a smoker one pack per day for 58 years and quit in 2019. Patient has history of alcohol abuse and quit in 1989 and in 2011 started drinking occasionally. Patient is and lives with a [id number]. He has a n ebulizer at home. No oxygen. FAMILY HISTORY mother at age 94 from old age. Father at age 83 with history of cancer he thinks related to asbestos exposure. Patient has a total of 8 siblings. Patient has 5 children with no major medical problems.. PHYSICAL EXAMINATION Gen: This a 76-year-old male. He is resting in bed and appears to be comfortable at rest. HEENT: Head is atraumatic, normocephalic. Pupils equal, round. Sclerae is anicteric. NECK: Supple. No JVD. No lymphadenopathy. No thyromegaly. LUNGS: Diminished bilaterally with a few scattered rhonchii. No intercostal retractions. HEART: Regular rate and rhythm. No murmur. ABDOMEN: Soft. Bowel sounds are present. No masses. No tenderness. large bilateral inguinal hernias, soft. EXTREMITIES: No pedal edema. No calf tenderness. NEUROLOGICAL: Patient is awake, alert and oriented x3. Cranial nerves 2 through 12 are grossly intact. ASSESSMENT AND PLAN Acute kidney injury secondary to hypotension, PADDY inhibitor, diuretics. Consult with nephrology appreciated. Patient ordered for IV 50 mL per hour, hold lisinopril and diuretics, bladder scan, avoid nephrotoxins, hydralazine added. Repeat blood work in the morning. Urinary outlet obstruction and incomplete bladder emptying. Consult with urology appreciated. Flomax 0.4 mg increased to twice daily. 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 Hypertension. Hydralazine 25 mg 3 times daily, Toprol-XL 12.5 mg daily. Scratches bilateral arms from his dog. Patient will be placed on Unasyn 1.5 g IV piggyback every 6 hours, local wound care. History of aortic aneurysm status post stent. Continue patient on Coumadin, pharmacy dosing. COPD. Continue patient on DuoNeb treatments 4 times daily and as needed. History of nonischemic cardiomyopathy and chronic systolic heart failure. Lasix on hold hold. Gastroesophageal reflux disease. Continue Protonix 40 mg daily. Recurrent depression. Continue Zoloft 25 mg daily. Patient will be admitted to the hospital for a minimum of 2 night stay. DISCHARGE PLAN home in the next 24 hours Impression and plan of care have been directed as dictated by the signing physician. Siena Reddy nurse practitioner acting as scribe for signing physician. Physical exam - Constitutional General appearance: cooperative, no acute distress, appears stated age - EENT Eyes: anicteric sclerae, PERRLA, normal appearance ENT: hearing grossly normal - Neck Neck: no lymphadenopathy, normal ROM, no other, no rigidity, no stridor, no thyromegaly - Respiratory Respiratory: bilateral: CTA, negative: diminished, dullness, rales, rhonchi - Cardiovascular Rhythm: regular Heart sounds: normal: S1, S2 Abnormal Heart Sounds: no systolic murmur, no diastolic murmur, no rub, no S3 Gallop, no S4 Gallop, no click, no other - Gastrointestinal General gastrointestinal: normal bowel sounds, soft - Genitourinary bilateral inguinal hernias noted, large right sided nonreducible hernia, nontender on palpation involving the scrotum, left inguinal fullness tender to palpate mildly reducible -Integumentary No rash - Neurologic Neurologic: CNII-XII intact no sensory or motor deficits - Musculoskeletal Musculoskeletal: gait normal, strength equal bilaterally - Psychiatric Psychiatric: A&O x's 3, appropriate affect Assessment and plan #1 hematemesis unclear etiology. CBC stable at 12.1. Protonix 40 IV daily. Surgery consulted for possible endoscopy #2 bilateral inguinal hernia that needs repair. Surgery consulted rule out incarceration. Cardiac clearance as patient has a history of aneurysm and dissections in the past. On Coumadin hold Coumadin and keep patient nothing by mouth after midnight. #3 thoracic aorta aneurysm status post aortic stent with dissection involving the distal descending aorta on aspirin and Coumadin, Lipitor. Cardiology consult placed #4 chronic systolic congestive heart failure echocardiogram ordered. Daily weight I and O monitoring. Continue lisinopril, Aldactone, metoprolol, Lasix Lasix 60 mg by mouth daily #5 hypertension continue metoprolol 12.5 daily, lisinopril 2.5 mg daily, Aldactone 25 mg by mouth daily Lasix 60 mg by mouth daily #6 history of BPH with neurogenic bladder status urolift [address] Garcia on Flomax 0.4 mg daily at bedtime #7 COPD continue DuoNeb as needed for shortness of breath #8 depression continue Zoloft 25 mg by mouth daily #9 CODE STATUS full code #10 DVT prophylaxis with heparin every 12 #11 GI prophylaxis with history ofGERD on omeprazole Past Medical History Past Medical History: COPD, Dialysis, GERD/Reflux, Hyperlipidemia, Hypertension Additional Past Medical History / Comment(s): Neuromuscular dysfunction of bladder, iron deficiency anemia, neurogenic bladder, pressure ulcers, dissection of thoracic aorta, no longer doing dialysis, previous ETOH abuse History of Any Multi-Drug Resistant Organisms: ESBL Date of last positivie culture/infection: 02/14/19 ESBL-E.coli MDRO Source:: Urine Past Surgical History: No Surgical Hx Reported Additional Past Surgical History / Comment(s): May 2018 thoracic aorta repair at [facility] Past Anesthesia/Blood Transfusion Reactions: No Reported Reaction Past Psychological History: No Psychological Hx Reported Smoking Status: Former smoker Past Alcohol Use History: Abuse, Daily Additional Past Alcohol Use History / Comment(s): quit 1989, began to drink again occasionally 2011 Past Drug Use History: None Reported Additional Drug Use History / Comment(s): pt stopped smoking 10/14/2021 Medications and Allergies Home Medications Medication Instructions Recorded Confirmed Type Furosemide [Lasix] 60 mg PO DAILY 30 Days tab 09/14/18 10/18/21 Rx Metoprolol Succinate (ER) [Toprol 12.5 mg PO DAILY #30 tab.er.24h 09/14/18 10/18/21 Rx XL] Spironolactone [Aldactone] 25 mg PO DAILY #30 tab 09/14/18 10/18/21 Rx lisinopriL [Zestril] 2.5 mg PO DAILY #30 tab 09/14/18 10/18/21 Rx Ipratropium/Albuterol Sulfate 1 puff INHALATION RT-TID #1 09/15/18 10/18/21 Rx [Combivent Respimat Inhaler] mist.inhal Sertraline [Zoloft] 25 mg PO DAILY 02/02/19 10/18/21 History Tamsulosin [Flomax] 0.4 mg PO HS 02/02/19 10/18/21 History Omeprazole 20 mg PO DAILY 01/26/21 10/18/21 History Warfarin Sodium 6 mg PO MOWEFR@1800 01/26/21 10/18/21 History Warfarin Sodium 8 mg PO SUTUTHSA@1600 01/26/21 10/18/21 History Ipratropium-Albuterol Nebulize 3 ml INHALATION RT-QID PRN 10/18/21 10/18/21 History [Duoneb 0.5 mg-3 mg/3 ml Soln] Mirabegron [Myrbetriq] 50 mg PO DAILY 10/18/21 10/18/21 History Allergies Allergy/AdvReac Type Severity Reaction Status Date / Time No Known Allergies Allergy Verified 10/18/21 17:29 Physical Exam Vitals: Vital Signs Temp Pulse Pulse Resp BP BP Pulse Ox 10/19/21 07:54 80 10/19/21 07:46 79 10/19/21 07:00 97.5 F L 56 L 16 157/70 100 10/19/21 02:15 98.0 F 68 15 169/74 95 10/18/21 20:46 84 10/18/21 20:40 80 10/18/21 19:51 98.4 F 69 17 104/62 97 10/18/21 15:20 98.2 F 80 18 120/67 97 Intake and Output 10/18/21 10/19/21 10/19/21 22:59 06:59 14:59 Other: Voiding Method Toilet Toilet Toilet Incontinent Incontinent Incontinent # Voids 3 Weight 55.792 kg Results CBC & Chem 7: 10/18/21 15:49 10/19/21 08:14 Labs: Abnormal Lab Results - Last 24 Hours (Table) 10/18/21 10/18/21 10/18/21 Range/Units 15:49 15:49 15:49 RBC 4.29 L (4.30-5.90) m/uL Hgb 12.8 L (13.0-17.5) gm/dL Plt Count 149 L (150-450) k/uL PT 23.9 H (9.0-12.0) sec INR 2.4 H (<1.2) APTT 34.3 H (22.0-30.0) sec BUN 56 H (9-20) mg/dL Creatinine 2.37 H (0.66-1.25) mg/dL Thrombosis Risk Factor Assmnt - Choose All That Apply Any of the Below Risk Factors Present?: Yes Each Factor Represents 1 point: Abnormal pulmonary function (COPD) Each Risk Factor Represents 2 Points: Age 61-74 years Each Risk Factor Represents 3 Points: Age 75 years or older Thrombosis Risk Factor Assessment Total Risk Factor Score: 6 Thrombosis Risk Factor Assessment Level: High Risk
[2021-10-19 10:55] LABS: INR 2.69 (0.90-1.11); Prothrombin Time 28.2 sec (9.9-11.9)
[2021-10-19 10:59] LABS: Basophils # (A) 0.07 X 10*3/uL (0.00-0.10); Eosinophils # (A) 0.27 X 10*3/uL (0.04-0.35); Eosinophils % (A) 3.7 %; HCT 35.7 % (39.6-50.0); Immature Grans, Automated 0.3 %; Lymphocytes # (A) 1.79 X 10*3/uL (0.90-5.00); Lymphocytes % (A) 24.4 %; MCH 29.6 pg (27.0-32.0); MCHC 30.8 g/dL (32.0-37.0); MCV 96.2 fL (80.0-97.0); Mean Platelet Volume 12.2 fL (9.5-12.2); Monocytes % (A) 9.5 %; NRBC Per 100 WBC 0 /100 WBCS (0.0-0.0); Neutrophils # (A) 4.48 X 10*3/uL (1.80-7.70); Neutrophils % (A) 61.1 %; Platelet Count 110 X 10*3/uL (140-440); RBC 3.71 X 10*6/uL (4.40-5.60); RDW 13.5 % (11.5-14.5); WBC 7.33 X 10*3/uL (4.50-10.00)
[2021-10-19] MEDS: SODIUM CHLORIDE 0.9% 1,000 ML IV SCH (13:42)
[2021-10-19] MEDS: TAMSULOSIN 0.4 MG CAP.ER.24H PO SCH (17:39)
[2021-10-19] MEDS ORDERED: WARFARIN 3 MG TAB PO SCH (18:00)
[2021-10-20] MEDS: AMPICILLIN-SULBACTAM 1.5 GM in SODIUM CHLORIDE 0.9% 50 ML IVPB SCH ×4 (03:38→22:42)
[2021-10-20 06:39] LABS: African American GFR (CKD) 56 (>60 ml/min/1.73 sqM); Anion Gap 7 mmol/L; Blood Urea Nitrogen 33 mg/dL (9-20); Calcium 8.1 mg/dL (8.4-10.2); Carbon Dioxide 22 mmol/L (22-30); Chloride 111 mmol/L (98-107); Glucose 90 mg/dL (74-99); Magnesium 2.1 mg/dL (1.6-2.3); Non-African American GFR(CKD) 49 (>60 ml/min/1.73 sqM); Potassium 4.3 mmol/L (3.5-5.1); Sodium 140 mmol/L (137-145)
[2021-10-20] MEDS: IPRATROPIUM-ALBUTEROL 3 ML NEB INHALATION SCH ×4 (07:33→20:38)
--- NOTE | 2021-10-20 08:18 | P.PN ---
Subjective Progress Note Date: 10/20/21 HISTORY OF PRESENT ILLNESS This is a 76-year-old male patient of Dr. Ozzy Padilla with past medical history of thoracic aortic aneurysm status post repair 17 at [facility] in May 2018, history of cardiomyopathy nonischemic, history of chronic systolic heart failure, hyperlipidemia, neurogenic bladder status [id number] off to in 2019, history of tobacco use and dependence, chronic kidney disease stage III, COPD, hypertension, hyperlipidemia, gastroesophageal reflux disease, iron deficiency anemia. Patient also has bilateral inguinal hernia which he has met with Dr. healy for repair but because of his multiple medical problems this is been delayed. He states he has been diagnosed with stage IV COPD. He also states he has ongoing problems with controlling his bladder and difficulty urinating. Patient also states that his dog jumped up and he has multiple scratches on his arms. He noticed bleeding from the scratches and came to the hospital for evaluation. Patient was found to be afebrile, heart rate 80, blood pressure 120/67, pulse ox 97% on room air. WBC 9.2, hemoglobin 12.8, platelet count 149. INR is 2.4. Surprisingly BUN was 56 and creatinine 2.37. Repeat this morning it is BUN 44 creatinine 1.57. Liver function tests were normal and electrolytes were normal. Urinalysis was negative. Renal ultrasound revealed stable cyst upper pole left kidney. In the emergency center, patient was given 1 L of IV fluids and a nebulizer sree tment, [facility]. Patient has been seen by nephrology with recommendations to maintain normal saline at 50 mL per hour, hold lisinopril and diuretics and bladder scan, avoid nephrotoxins, added hydralazine 25 mg twice daily with parameters. Repeat blood work was ordered for the morning. Patient is also been seen by urology for urinary outlet obstruction and incomplete bladder emptying, recommended increasing Flomax to twice daily 01/20: Kidney function has improved significantly creatinine down to 1.4, patient is still on hydration, his CAT scan at some the left arm has improved been on Unasyn which should be continued for another day. Patient be seen nephrology again today we'll continue watching his urinary retention been on Flomax twice a day by tomorrow if patient is stable does not need to be trained for any self-catheterization and his kidney function is back to its baseline should be able to send patient home on oral Augmentin for his cellulitis of the left upper extremity. Medication and all patient questions were answered today continue the current plan blood work order was placed for tomorrow morning. REVIEW OF SYSTEMS Constitutional: No fever, no chills, no night sweats. No weight change. No weakness, fatigue or lethargy. No daytime sleepiness. EENT: No headache. No blurred vision or double vision, no loss of vision. No loss of Hearing, no ringing in the ears, no dizziness. No nasal drainage or congestion. No epistaxis. No sore throat. Lungs: No shortness of breath, cough, no sputum production. No wheezing. Cardiovascular: No chest pain, no lower extremity edema. No palpitations. No paroxysmal nocturnal dyspnea. No orthopnea. No lightheadedness or dizziness. No syncopal episodes. Abdominal: No abdominal pain. No nausea, vomiting. No diarrhea. No constipation. No bloody or tarry stools. No loss of appetite. Genitourinary: No dysuria, increased frequency, urgency. No urinary retention. Musculoskeletal: No myalgias. No muscle weakness, no gait dysfunction, no frequent falls. No back pain. No neck pain. Integumentary: No wounds, no lesions. No rash or pruritus. No unusual bruising. No change in hair or nails. Neurologic: No aphasia. No facial droop. No change in mentation. No head injury. No headache. No paralysis. No paresthesia. Psychiatric: No depression. No anxiety. No mood swings. Endocrine: No abnormal blood sugars. No weight change. No excessive sweating or thirst. No cold intolerance. PHYSICAL EXAMINATION Gen: This a 76-year-old male. He is resting in bed and appears to be comfortable at rest. HEENT: Head is atraumatic, normocephalic. Pupils equal, round. Sclerae is anicteric. NECK: Supple. No JVD. No lymphadenopathy. No thyromegaly. LUNGS: Diminished bilaterally with a few scattered rhonchii. No intercostal retractions. HEART: Regular rate and rhythm. No murmur. ABDOMEN: Soft. Bowel sounds are present. No masses. No tenderness. large bilateral inguinal hernias, soft. EXTREMITIES: No pedal edema. No calf tenderness. NEUROLOGICAL: Patient is awake, alert and oriented x3. Cranial nerves 2 through 12 are grossly intact. ASSESSMENT AND PLAN Acute kidney injury secondary to hypotension, PADDY inhibitor, diuretics. Kidney function improved currently no effect of urinary retention on it anymore continue gentle hydration repeat BUN/creatinine by tomorrow. Urinary outlet obstruction and incomplete bladder emptying. It is seen urology, Flomax was increased to twice a day, we'll continue to monitor patient urinary retention in the next 24 hours. 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 Seen nephrology. Hypertension. Hydralazine 25 mg 3 times daily, Toprol-XL 12.5 mg daily. Blood pressure is much better controlled. Scratches bilateral arms from his dog. Patient will be placed on Unasyn 1.5 g IV piggyback every 6 hours, local wound care. We'll continue Unasyn for 24 more hours and then switched to Augmentin. History of aortic aneurysm status post stent. Continue patient on Coumadin, pharmacy dosing. COPD. Continue patient on DuoNeb treatments 4 times daily and as needed. History of nonischemic cardiomyopathy and chronic systolic heart failure. Lasix on hold hold. Gastroesophageal reflux disease. Continue Protonix 40 mg daily. Recurrent depression. Continue Zoloft 25 mg daily. Status: Full code. Discharge planning: Patient be discharged home tomorrow on oral antibiotic and the quick follow-up with urology and his primary care. Objective - Vital Signs Vital signs: Vital Signs Temp 98.6 F 10/19/21 20:38 Pulse 70 10/20/21 07:43 Resp 15 10/20/21 02:58 BP 137/67 10/20/21 02:58 Pulse Ox 98 10/20/21 02:58 FiO2 Intake & Output 10/19/21 10/20/21 10/20/21 18:59 06:59 18:59 Intake Total 698 Output Total 193 Balance 505 Intake: Oral 698 Output: Post Void Residual 193 Other: Voiding Method Toilet Toilet Incontinent Incontinent # Voids 1 2 # Bowel Movements 1 - Labs CBC & Chem 7: 10/19/21 08:14 10/20/21 05:14 Labs: Abnormal Lab Results - Last 24 Hours (Table) 10/19/21 10/19/21 10/19/21 Range/Units 08:14 08:14 08:14 RBC 3.71 L (4.40-5.60) X 10*6/uL Hgb 11.0 L (13.0-17.0) g/dL Hct 35.7 L (39.6-50.0) % MCHC 30.8 L (32.0-37.0) g/dL Plt Count 110 L (140-440) X 10*3/uL PT 28.2 H (9.9-11.9) sec INR 2.69 H (0.90-1.11) Chloride 111 H (98-107) mmol/L BUN 44 H (9-20) mg/dL Creatinine 1.57 H (0.66-1.25) mg/dL Calcium 7.9 L (8.4-10.2) mg/dL Total Protein 5.9 L (6.3-8.2) g/dL 10/20/21 Range/Units 05:14 RBC (4.40-5.60) X 10*6/uL Hgb (13.0-17.0) g/dL Hct (39.6-50.0) % MCHC (32.0-37.0) g/dL Plt Count (140-440) X 10*3/uL PT (9.9-11.9) sec INR (0.90-1.11) Chloride 111 H (98-107) mmol/L BUN 33 H (9-20) mg/dL Creatinine 1.42 H (0.66-1.25) mg/dL Calcium 8.1 L (8.4-10.2) mg/dL Total Protein (6.3-8.2) g/dL
[2021-10-20 09:28] LABS: INR 2.89 (0.90-1.11); Prothrombin Time 30.2 sec (9.9-11.9)
[2021-10-20] MEDS: METOPROLOL SUCCINATE (ER) 25 MG TAB.ER.24H PO SCH (09:46)
[2021-10-20] MEDS: PANTOPRAZOLE 40 MG TABLET PO SCH (09:46)
[2021-10-20] MEDS: SERTRALINE 25 MG TAB PO SCH (09:46)
[2021-10-20] MEDS: hydrALAZINE HCL 25 MG TAB PO SCH ×3 (09:47→22:42)
[2021-10-20] MEDS: TAMSULOSIN 0.4 MG CAP.ER.24H PO SCH ×2 (09:47→17:35)
[2021-10-20] MEDS: SODIUM CHLORIDE 0.9% 1,000 ML IV SCH (09:48)
[2021-10-20] MEDS: Mirabegron [Myrbetriq] 50 MG Tab.Er.24h PO SCH (09:48)
[2021-10-20 13:48] VITALS: BMI 18.7
--- NOTE | 2021-10-20 14:30 | P.PN ---
Subjective Patient is seen in follow for acute kidney injury. Renal function better. Has been voiding. No vomiting or diarrhea. Oral intake fair. Vital signs are stable. General: Awake. No acute distress. HEENT: Head exam is unremarkable. LUNGS: Breath sounds decreased. HEART: Rate and Rhythm are regular. ABDOMEN: Soft, no distention. EXTREMITITES: No edema. Objective - Vital Signs Vital signs: Vital Signs Temp 99.4 F 10/20/21 13:50 Pulse 83 10/20/21 13:50 Resp 12 10/20/21 13:50 BP 148/56 10/20/21 13:50 Pulse Ox 98 10/20/21 13:50 FiO2 Intake & Output 10/19/21 10/20/21 10/20/21 18:59 06:59 18:59 Intake Total 698 118 Output Total 193 208 Balance 505 -90 Weight 55.792 kg Intake: Oral 698 118 Output: Post Void Residual 193 208 Other: Voiding Method Toilet Toilet Diaper Incontinent Incontinent # Voids 1 2 # Bowel Movements 1 - Labs CBC & Chem 7: 10/19/21 08:14 10/20/21 05:14 Labs: Abnormal Lab Results - Last 24 Hours (Table) 10/20/21 10/20/21 Range/Units 05:14 05:14 PT 30.2 H (9.9-11.9) sec INR 2.89 H (0.90-1.11) Chloride 111 H (98-107) mmol/L BUN 33 H (9-20) mg/dL Creatinine 1.42 H (0.66-1.25) mg/dL Calcium 8.1 L (8.4-10.2) mg/dL Assessment and Plan Plan: Assessment: 1. Acute kidney injury mostly prerenal secondary to hypotension, PADDY inhibitor and diuretics. Creatinine 2.37 on admission - 1.42 today. Creatinine in January 2021 was in the range of 1.5-1.6. 2. Chronic kidney disease stage IIIB with baseline creatinine in the range of 1.5-1.6 in January 2021. Etiology is nephrosclerosis. UA benign. No hydronephrosis noted on kidney ultrasound. Left kidney is atrophic. 3. Hypertension with chronic kidney disease. Stable. 4. Upper extremity scratches/wounds. On antibiotics. 5. History of aortic reconstruction and urine was to [facility] done in 2019. Plan: Maintain normal saline at 50 mL an hour. Encouraged oral intake. Continue to hold lisinopril and diuretics. Avoid nephrotoxins.
[2021-10-20] MEDS ORDERED: WARFARIN 3 MG TAB PO ONE (18:00)
[2021-10-21] MEDS: AMPICILLIN-SULBACTAM 1.5 GM in SODIUM CHLORIDE 0.9% 50 ML IVPB SCH ×2 (04:13→08:27)
[2021-10-21] MEDS: SODIUM CHLORIDE 0.9% 1,000 ML IV SCH ×2 (05:45→08:06)
[2021-10-21] MEDS: SERTRALINE 25 MG TAB PO SCH (07:59)
[2021-10-21] MEDS: PANTOPRAZOLE 40 MG TABLET PO SCH (07:59)
[2021-10-21] MEDS: TAMSULOSIN 0.4 MG CAP.ER.24H PO SCH (08:00)
[2021-10-21] MEDS: METOPROLOL SUCCINATE (ER) 25 MG TAB.ER.24H PO SCH (08:00)
[2021-10-21] MEDS: hydrALAZINE HCL 25 MG TAB PO SCH (08:00)
[2021-10-21 08:01] VITALS: BP 138/75; RESP 16; TEMP 97.4
[2021-10-21] MEDS: Mirabegron [Myrbetriq] 50 MG Tab.Er.24h PO SCH (08:02)
[2021-10-21] MEDS: IPRATROPIUM-ALBUTEROL 3 ML NEB INHALATION SCH (08:09)
--- NOTE | 2021-10-21 08:28 | P.DS ---
Providers Date of admission: 10/19/21 10:41 Expected date of discharge: 10/21/21 Attending physician: Joseline Devlin Consults: 10/18/21 19:20 Consult Physician Routine Consulting Provider: Ansley Corrales Consult Reason/Comments: Acute Kidney Injury Do you want consulting provider notified?: Yes, Notify in am 10/19/21 08:23 Consult Physician Routine Consulting Provider: Taurus Valles Consult Reason/Comments: urinary retention Do you want consulting provider notified?: Yes Primary care physician: Ozzy Padilla [facility] Course: HISTORY OF PRESENT ILLNESS This is a 76-year-old male patient of Dr. Ozzy Padilla with past medical history of thoracic aortic aneurysm status post repair 17 at [facility] in May 2018, history of cardiomyopathy nonischemic, history of chronic systolic heart failure, hyperlipidemia, neurogenic bladder status [id number] off to in 2019, history of tobacco use and dependence, chronic kidney disease stage III, COPD, hypertension, hyperlipidemia, gastroesophageal reflux disease, iron deficiency anemia. Patient also has bilateral inguinal hernia which he has met with Dr. healy for repair but because of his multiple medical problems this is been delayed. He states he has been diagnosed with stage IV COPD. He also states he has ongoing problems with controlling his bladder and difficulty urinating. Patient also states that his dog jumped up and he has multiple scratches on his arms. He noticed bleeding from the scratches and came to the hospital for evaluation. Patient was found to be afebrile, heart rate 80, blood pressure 120/67, pulse ox 97% on room air. WBC 9.2, hemoglobin 12.8, platelet count 149. INR is 2.4. Surprisingly BUN was 56 and creatinine 2.37. Repeat this morning it is BUN 44 creatinine 1.57. Liver function tests were normal and electrolytes were normal. Urinalysis was negative. Renal ultrasound revealed stable cyst upper pole left kidney. In the emergency center, patient was given 1 L of IV fluids and a nebulizer treatment, admitted to the [facility] floor. Patient has been seen by nephrology with recommendations to maintain normal saline at 50 mL per hour, hold lisinopril and diuretics and bladder scan, avoid nephrotoxins, added hydralazine 25 mg twice daily with parameters. Repeat blood work was ordered for the morning. Patient is also been seen by urology for urinary outlet obstruction and incomplete bladder emptying, recommended increasing Flomax to twice daily 10/20: Kidney function has improved significantly creatinine down to 1.4, patient is still on hydration, his CAT scan at some the left arm has improved been on Unasyn which should be continued for another day. Patient be seen nephrology again today we'll continue watching his urinary retention been on Flomax twice a day by tomorrow if patient is stable does not need to be trained for any self- catheterization and his kidney function is back to its baseline should be able to send patient home on oral Augmentin for his cellulitis of the left upper extremity. Medication and all patient questions were answered today continue the current plan blood work order was placed for tomorrow morning. 10/21: Patient has been hemodynamically stable, blood pressure this morning 138/75, heart rate 80, SX 94% on room air, afebrile. Repeat blood work reveals WBC 8.3, hemoglobin 10.4 platelet count 119. INR is 2.6. Electrolytes are normal. BUN 29 creatinine 1.5. Calcium 8.1. Total bilirubin less than 0.15. Other liver function tests normal. Patient has been able to void, no nausea vomiting or diarrhea. Lisinopril and Lasix remain on hold while he is on an IV 0.9 normal saline at 50 ML's per hour. We will transition IV Unasyn to oral Augmentin and for home decrease Lasix to 20 mg daily, continue to hold lisinopril and patient will be continued on hydralazine at home. Prescriptions have been sent to the patient's pharmacy. Repeat blood work ordered for Tuesday. Patient will be discharged home today in stable condition. DISCHARGE DIAGNOSES Acute kidney injury secondary to hypotension, PADDY inhibitor, diuretics. Urinary outlet obstruction and incomplete bladder emptying. 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 Hypertension. Scratches bilateral arms from his dog. History of aortic aneurysm status post stent. COPD. History of nonischemic cardiomyopathy and chronic systolic heart failure. Gastroesophageal reflux disease. Recurrent depression. Discharge planning: Home Greater than 35 minutes was utilized and coordinating patient's discharge. Impression and plan of care have been directed as dictated by the signing physician. Siena Reddy nurse practitioner acting as scribe for signing physician. Patient Condition at Discharge: Good Plan - Discharge Summary New Discharge Prescriptions: New hydrALAZINE HCL [Apresoline] 25 mg PO TID #90 tab Amoxic-Pot Clav 500-125 mg [Augmentin 500-125 mg] 1 tab PO Q12HR #14 tab Tamsulosin [Flomax] 0.4 mg PO BID-W/MEALS #60 cap Continue Spironolactone [Aldactone] 25 mg PO DAILY #30 tab Metoprolol Succinate (ER) [Toprol XL] 12.5 mg PO DAILY #30 tab.er.24h Ipratropium/Albuterol Sulfate [Combivent Respimat Inhaler] 1 puff INHALATION RT-TID #1 mist.inhal Sertraline [Zoloft] 25 mg PO DAILY Omeprazole 20 mg PO DAILY Warfarin Sodium 6 mg PO MOWEFR@1800 Warfarin Sodium 8 mg PO SUTUTHSA@1600 Mirabegron [Myrbetriq] 50 mg PO DAILY Ipratropium-Albuterol Nebulize [Duoneb 0.5 mg-3 mg/3 ml Soln] 3 ml INHALATION RT-QID PRN PRN Reason: Shortness Of Breath Changed Furosemide [Lasix] 20 mg PO DAILY 30 Days Discontinued lisinopriL [Zestril] 2.5 mg PO DAILY #30 tab Tamsulosin [Flomax] 0.4 mg PO HS Discharge Medication List Metoprolol Succinate (ER) [Toprol XL] 12.5 mg PO DAILY #30 tab.er.24h 09/14/18 [Rx] Spironolactone [Aldactone] 25 mg PO DAILY #30 tab 09/14/18 [Rx] Ipratropium/Albuterol Sulfate [Combivent Respimat Inhaler] 1 puff INHALATION RT- TID #1 mist.inhal 09/15/18 [Rx] Sertraline [Zoloft] 25 mg PO DAILY 02/02/19 [History] Omeprazole 20 mg PO DAILY 01/26/21 [History] Warfarin Sodium 6 mg PO MOWEFR@1800 01/26/21 [History] Warfarin Sodium 8 mg PO SUTUTHSA@1600 01/26/21 [History] Ipratropium-Albuterol Nebulize [Duoneb 0.5 mg-3 mg/3 ml Soln] 3 ml INHALATION RT-QID PRN 10/18/21 [History] Mirabegron [Myrbetriq] 50 mg PO DAILY 10/18/21 [History] Amoxic-Pot Clav 500-125 mg [Augmentin 500-125 mg] 1 tab PO Q12HR #14 tab 10/21/21 [Rx] Furosemide [Lasix] 20 mg PO DAILY 30 Days 10/21/21 [Rx] Tamsulosin [Flomax] 0.4 mg PO BID-W/MEALS #60 cap 10/21/21 [Rx] hydrALAZINE HCL [Apresoline] 25 mg PO TID #90 tab 10/21/21 [Rx] Follow up Appointment(s)/Referral(s): Ozzy Padilla MD [Primary Care Provider] - 1 Week Cruz Miles DO [STAFF PHYSICIAN] - 1 Week Ambulatory/Diagnostic Orders: Basic Metabolic Panel [LAB.AMB] Location: None Selected Discharge Disposition: HOME SELF-CARE
[2021-10-21 08:33] VITALS: PULSE 72
[2021-10-21 09:45] LABS: HCT 33.9 % (39.6-50.0); HGB 10.4 g/dL (13.0-17.0); MCH 29.5 pg (27.0-32.0); MCHC 30.7 g/dL (32.0-37.0); MCV 96.3 fL (80.0-97.0); NRBC Per 100 WBC 0 /100 WBCS (0.0-0.0); Platelet Count 119 X 10*3/uL (140-440); RBC 3.52 X 10*6/uL (4.40-5.60); RDW 13.9 % (11.5-14.5); WBC 8.31 X 10*3/uL (4.50-10.00)
[2021-10-21 09:49] LABS: ALT 14 U/L (10-49); AST 20 U/L (14-35); African American GFR (CKD) 51.2 (60.0-200.0); Albumin 3.5 g/dL (3.8-4.9); Albumin/Globulin Ratio 1.84 (1.60-3.17); Alkaline Phosphatase 65 U/L (41-126); BUN/Creat Ratio 19.08 Ratio (12.00-20.00); Blood Urea Nitrogen 29.2 mg/dL (9.0-27.0); Calcium 8.1 mg/dL (8.7-10.3); Carbon Dioxide 20.5 mmol/L (20.0-27.5); Chloride 108 mmol/L (96-109); Globulin 1.9 g/dL (1.6-3.3); Glucose 112 mg/dL (70-110); Non-African American GFR(CKD) 44.1 (60.0-200.0); Potassium 4.5 mmol/L (3.5-5.5); Sodium 140 mmol/L (135-145); Total Bilirubin <0.15 mg/dL (0.30-1.20); Total Protein 5.4 g/dL (6.2-8.2)
[2021-10-21 09:52] LABS: INR 2.6 (0.90-1.11); Prothrombin Time 28.1 sec (9.9-11.9)
--- NOTE | 2021-10-21 10:32 | P.PN ---
Subjective Patient is seen in follow for acute kidney injury. Renal function stable. Has been voiding. No vomiting or diarrhea. Oral intake fair. No changes overnight. Wants to go home. Vital signs are stable. General: Awake. No acute distress. HEENT: Head exam is unremarkable. LUNGS: Breath sounds decreased. HEART: Rate and Rhythm are regular. ABDOMEN: Soft, no distention. EXTREMITITES: No edema. Objective - Vital Signs Vital signs: Vital Signs Temp 97.4 F L 10/21/21 08:00 Pulse 72 10/21/21 08:19 Resp 16 10/21/21 08:00 BP 138/75 10/21/21 08:00 Pulse Ox 94 L 10/21/21 08:00 FiO2 Intake & Output 10/20/21 10/21/21 10/21/21 18:59 06:59 18:59 Intake Total 358 240 Output Total 303 Balance 55 240 Weight 55.792 kg Intake: Oral 358 240 Output: Post Void Residual 303 Other: Voiding Method Diaper Diaper Diaper # Voids 1 1 # Bowel Movements 1 - Labs CBC & Chem 7: 10/21/21 03:47 10/21/21 03:47 Labs: Abnormal Lab Results - Last 24 Hours (Table) 10/21/21 10/21/21 10/21/21 Range/Units 03:47 03:47 03:47 RBC 3.52 L (4.40-5.60) X 10*6/uL Hgb 10.4 L (13.0-17.0) g/dL Hct 33.9 L (39.6-50.0) % MCHC 30.7 L (32.0-37.0) g/dL Plt Count 119 L (140-440) X 10*3/uL PT 28.1 H (9.9-11.9) sec INR 2.60 H (0.90-1.11) BUN 29.2 H (9.0-27.0) mg/dL Est GFR (CKD-EPI)AfAm 51.2 L (60.0-200.0) Est GFR (CKD-EPI)NonAf 44.1 L (60.0-200.0) Glucose 112 H (70-110) mg/dL Calcium 8.1 L (8.7-10.3) mg/dL Total Bilirubin <0.15 L (0.30-1.20) mg/dL Total Protein 5.4 L (6.2-8.2) g/dL Albumin 3.5 L (3.8-4.9) g/dL Assessment and Plan Plan: Assessment: 1. Acute kidney injury mostly prerenal secondary to hypotension, PADDY inhibitor and diuretics. Creatinine 2.37 on admission - stable at 1.5 today. Creatinine in January 2021 was in the range of 1.5-1.6. 2. Chronic kidney disease stage IIIB with baseline creatinine in the range of 1.5-1.6 in January 2021. Etiology is nephrosclerosis. UA benign. No hydronephrosis noted on kidney ultrasound. Left kidney is atrophic. 3. Hypertension with chronic kidney disease. Stable. 4. Upper extremity scratches/wounds. On antibiotics. 5. History of aortic reconstruction and urine was to [facility] done in 2019. Plan: Hep-Lock IV fluids. Encouraged oral intake. Continue to hold lisinopril and diuretics. Avoid nephrotoxins. Possible discharge home today. Follow up outpatient in 1-2 weeks
[2021-10-21] MEDS ORDERED: WARFARIN 3 MG TAB PO ONE (18:00)
== END 2021-10-21 11:12 | disposition home or self-care (01) | DRG 683 ==
LOC: EC 14:42 → 6NMEDSUR 17:04 → OBSVTOIN 10-19 10:41
PROVIDERS: ADMIT Internal Medicine; ATTEND Internal Medicine
DX: N17.9 Acute kidney failure, unspecified (principal); F33.9 Major depressive disorder, recurrent, unspecified; I13.0 Hypertensive heart and chronic kidney disease with heart failure and stage 1 through stage 4 chronic kidney disease, or unspecified chronic kidney disease; I42.8 Other cardiomyopathies; I50.22 Chronic systolic (congestive) heart failure; K92.0 Hematemesis; N13.8 Other obstructive and reflux uropathy; L03.114 Cellulitis of left upper limb; S51.812A Laceration without foreign body of left forearm, initial encounter; I71.2 Thoracic aortic aneurysm, without rupture; E78.5 Hyperlipidemia, unspecified; J44.9 Chronic obstructive pulmonary disease, unspecified; D50.9 Iron deficiency anemia, unspecified; N18.32 Chronic kidney disease, stage 3b; N40.1 Benign prostatic hyperplasia with lower urinary tract symptoms; Z28.310 Unvaccinated for COVID-19; W54.1XXA Struck by dog, initial encounter; I95.2 Hypotension due to drugs; Z95.828 Presence of other vascular implants and grafts; F10.11 Alcohol abuse, in remission; T46.4X5A Adverse effect of angiotensin-converting-enzyme inhibitors, initial encounter; N28.1 Cyst of kidney, acquired; R33.8 Other retention of urine; T50.2X5A Adverse effect of carbonic-anhydrase inhibitors, benzothiadiazides and other diuretics, initial encounter; S40.812A Abrasion of left upper arm, initial encounter; S40.811A Abrasion of right upper arm, initial encounter; K21.9 Gastro-esophageal reflux disease without esophagitis; K40.20 Bilateral inguinal hernia, without obstruction or gangrene, not specified as recurrent; N31.9 Neuromuscular dysfunction of bladder, unspecified; Z98.890 Other specified postprocedural states; Z87.891 Personal history of nicotine dependence; Z79.01 Long term (current) use of anticoagulants; Z79.82 Long term (current) use of aspirin; Z79.899 Other long term (current) drug therapy; Z87.2 Personal history of diseases of the skin and subcutaneous tissue; Z86.19 Personal history of other infectious and parasitic diseases; Z92.89 Personal history of other medical treatment
CPT/HCPCS: 36415; 76770; 80048; 80053; 81003; 83735; 85025; 85027; 85610; 85730; 94640; 99285

== ENCOUNTER 2022-12-06 17:57 | Inpatient (IN) | payer MEDICARE, OTHER ==
[2022-12-06] MEDS ORDERED: ACETAMINOPHEN TAB 500 MG TAB PO STA (18:18)
[2022-12-06] MEDS ORDERED: IBUPROFEN 600 MG TAB PO STA (18:18)
--- NOTE | 2022-12-06 18:23 | ED ---
General Adult HPI - General Chief complaint: Abdominal Pain Stated complaint: Small Bowel Obs,Surgical Consult,Sepsis Time Seen by Provider: 12/06/22 18:00 Source: patient, EMS, RN notes reviewed, old records reviewed Mode of arrival: EMS Limitations: no limitations - History of Present Illness Initial comments: This is a 77-year-old male who presents emergency department from [facility]. Patient's being transferred to us because patient had a small bowel obstruction secondary to a hernia. Patient states he initially went to [facility] diarrhea with a little bit of blood. Patient currently denies any abdominal pain or any pain in the inguinal area. Patient denies any patient stated they told me he had a urinary tract infection. Patient denies any chest pain difficulty breathing shortest breath per patient denies any lightheadedness or d izziness. Patient denies any back pain. - Related Data Home Medications Medication Instructions Recorded Confirmed Sertraline [Zoloft] 25 mg PO DAILY 02/02/19 12/06/22 Ipratropium-Albuterol Nebulize 3 ml INHALATION RT-QID 10/18/21 12/06/22 [Duoneb 0.5 mg-3 mg/3 ml Soln] Mirabegron [Myrbetriq] 50 mg PO DAILY 10/18/21 12/06/22 Ascorbic Acid [Vitamin C] 1,000 mg PO DAILY 12/06/22 12/06/22 Aspirin EC [Ecotrin Low Dose] 81 mg PO DAILY 12/06/22 12/06/22 Ferrous Sulfate [Feosol] 325 mg PO DAILY 12/06/22 12/06/22 Fluticasone Nasal [place] [Flonase 1 - 2 spr EA NOSTRIL DAILY 12/06/22 12/06/22 Nasal [place]] Furosemide [Lasix] 60 mg PO DAILY 12/06/22 12/06/22 Magnesium Oxide [Magnesium] 500 mg PO DAILY 12/06/22 12/06/22 Multivit-Mins/Iron/Folic/Lycop 1 tab PO DAILY 12/06/22 12/06/22 [Centrum Men's Tablet] Pantoprazole [Protonix] 40 mg PO BID 12/06/22 12/06/22 Tamsulosin [Flomax] 0.4 mg PO HS 12/06/22 12/06/22 Previous Rx's Medication Instructions Recorded Metoprolol Succinate (ER) [Toprol 12.5 mg PO DAILY #30 tab.er.24h 09/14/18 XL] Spironolactone [Aldactone] 25 mg PO DAILY #30 tab 09/14/18 Ipratropium/Albuterol Sulfate 1 puff INHALATION RT-TID #1 09/15/18 [Combivent Respimat Inhaler] mist.inhal Allergies Allergy/AdvReac Type Severity Reaction Status Date / Time No Known Allergies Allergy Verified 12/06/22 20:05 Review of Systems ROS Statement: Those systems with pertinent positive or pertinent negative responses have been documented in the HPI. ROS Other: All systems not noted in ROS Statement are negative. Past Medical History Past Medical History: COPD, Dialysis, GERD/Reflux, Hyperlipidemia, Hypertension Additional Past Medical History / Comment(s): Neuromuscular dysfunction of bladder, iron deficiency anemia, neurogenic bladder, pressure ulcers, dissection of thoracic aorta, no longer doing dialysis, previous ETOH abuse, 2018 History of Any Multi-Drug Resistant Organisms: ESBL Date of last positivie culture/infection: 02/14/19 ESBL-E.coli MDRO Source:: Urine Past Surgical History: No Surgical Hx Reported Additional Past Surgical History / Comment(s): May 2018 thoracic aorta repair at [facility] Past Anesthesia/Blood Transfusion Reactions: No Reported Reaction Past Psychological History: No Psychological Hx Reported Smoking Status: Former smoker Past Alcohol Use History: Abuse, Daily Past Drug Use History: None Reported General Exam - General Exam Comments Initial Comments: GENERAL: Patient is well-developed and well-nourished. Patient is nontoxic and well- hydrated and is in no acute distress. ENT: Neck is soft and supple. No significant lymphadenopathy is noted. Oropharynx is clear. Moist mucous membranes. Neck has full range of motion without eliciting any pain. EYES: The sclera were anicteric and conjunctiva were pink and moist. Extraocular movements were intact and pupils were equal round and reactive to light. Eyelids were unremarkable. PULMONARY: Unlabored respirations. Good breath sounds bilaterally. CARDIOVASCULAR: There is a regular rate and rhythm without any murmurs gallops or rubs. ABDOMEN: Soft and nontender with normal bowel sounds. Patient has bilateral inguinal hernias right being considerably larger than the left. Both hernias are easily reducible SKIN: Skin is clear with no lesions or rashes and otherwise unremarkable. NEUROLOGIC: Patient is alert and oriented x3. Cranial nerves II through XII are grossly intact. Motor and sensory are also intact. Normal speech, volume and content. Symmetrical smile. MUSCULOSKELETAL: Normal extremities with adequate strength and full range of motion. LYMPHATICS: No significant lymphadenopathy is noted PSYCHIATRIC: Normal psychiatric evaluation. Limitations: no limitations Course Vital Signs 12/06/22 12/06/22 18:00 19:37 Temperature 100.5 F H 99.0 F Pulse Rate 89 Respiratory 20 Rate Blood Pressure 99/60 O2 Sat by Pulse 96 Oximetry Medical Decision Making - Medical Decision Making Was pt. sent in by a medical professional or institution (, PA, JACKSCREW WORKER, urgent care, hospital, or senior care...) When possible be specific @ -Patient was sent in by [facility] Did you speak to anyone other than the patient for history (EMS, parent, family, police, friend...)? What history was obtained from this source @ -I spoke with the ER physician at [facility] prior to transfer this patient Did you review nursing and triage notes (agree or disagree)? Why? @ -I reviewed and agree with nursing and triage notes Were old charts reviewed (outside hosp., previous admission, EMS record, old EKG, old radiological studies, urgent care reports/EKG's, senior care records)? Report findings @ -I reviewed all prior labs prior radiological studies from [facility] Differential Diagnosis (chest pain, altered mental status, abdominal pain women, abdominal pain men, vaginal bleeding, weakness, fever, dyspnea, syncope, headache, dizziness, GI bleed, back pain, seizure, CVA, palpatations, mental health, musculoskeletal)? @ -Differential Abdominal Pain Men: Appendicitis, cholecystitis, diverticulosis, ischemic bowel, pancreatitis, hepatitis, UTI, gastroenteritis, AAA, incarcerated hernia, bowel obstruction, constipation, inflammatory bowel, hepatitis, peptic ulcer disease, splenic i nfarction, perforated viscus, testicular torsion, this is not meant to be an all-inclusive list EKG interpreted by me (3pts min.). @ -As above X-rays interpreted by me (1pt min.). @ -None done CT interpreted by me (1pt min.). @ -None done U/S interpreted by me (1pt. min.). @ -None done What testing was considered but not performed or refused? (CT, X-rays, U/S, labs)? Why? @ -None What meds were considered but not given or refused? Why? @ -None Did you discuss the management of the patient with other professionals (professionals i.e. , PA, JACKSCREW WORKER, lab, RT, psych nurse, socially responsible investment adviser, energy conservation technician, teacher, public health service officer, hospice case manager)? Give summary @ -I spoke with the [facility] hospitalist and they agreed to admit the patient Was smoking cessation discussed for >3mins.? @ -No Was critical care preformed (if so, how long)? @ -No Were there social determinants of health that impacted care today? How? (Homelessness, low income, unemployed, alcoholism, drug addiction, transportation, low edu. Level, literacy, decrease access to med. care, penitentiary, rehab)? @ -No Was there de-escalation of care discussed even if they declined (Discuss DNR or withdrawal of care, Hospice)? DNR status @ -No What co-morbidities impacted this encounter? (DM, HTN, Smoking, COPD, CAD, Cancer, CVA, ARF, Chemo, Hep., AIDS, mental health diagnosis, sleep apnea, morbid obesity)? @ -None Was patient admitted / discharged? Hospital course, mention meds given and route, prescriptions, significant lab abnormalities, going to OR and other per tinent info. @ -I went into the room and saw the patient both inguinal hernias were easily reducible. Patient was in no significant distress. I repeated lab work patient did continue to have a white count lactic acidosis normal range. I spoke with [facility] hospitalist and they agreed to admit the patient admitted the patient consult the surgery repeated CBCs. At this point time the patient does have a low-grade fever and I don't have a source however: Results are pending Undiagnosed new problem with uncertain prognosis? @ -No Drug Therapy requiring intensive monitoring for toxicity (Heparin, Nitro, Insul in, Cardizem)? @ -No Were any procedures done? @ -No Diagnosis/symptom? @ -Bilateral inguinal hernias Acute, or Chronic, or Acute on Chronic? @ -Chronic Uncomplicated (without systemic symptoms) or Complicated (systemic symptoms)? @ -Complicated Side effects of treatment? @ -No Exacerbation, Progression, or Severe Exacerbation? @ -No Poses a threat to life or bodily function? How? (Chest pain, [place], [place], pneumonia, PE, COPD, DKA, ARF, appy, cholecystitis, CVA, Diverticulitis, Homicidal, Suicidal, threat to staff... and all critical care pts) @ -No Diagnosis/symptom? @ -Renal insufficiency Acute, or Chronic, or Acute on Chronic? @ -Acute Uncomplicated (without systemic symptoms) or Complicated (systemic symptoms)? @ -Complicated Side effects of treatment? @ -none Exacerbation, Progression, or Severe Exacerbation] @ -no Poses a threat to life or bodily function? @ -no Diagnosis/symptom? @ -Partial small bowel obstruction Acute, or Chronic, or Acute on Chronic? @ -Acute Uncomplicated (without systemic symptoms) or Complicated (systemic symptoms)? @ -Complicated Side effects of treatment? @ -none Exacerbation, Progression, or Severe Exacerbation] @ -no Poses a threat to life or bodily function? @ -no Diagnosis/symptom? @ -Diarrhea Acute, or Chronic, or Acute on Chronic? @ -Acute Uncomplicated (without systemic symptoms) or Complicated (systemic symptoms)? @ -Complicated Side effects of treatment? @ -none Exacerbation, Progression, or Severe Exacerbation] @ -no Poses a threat to life or bodily function? @ -no - Lab Data Result diagrams: 12/06/22 18:24 12/06/22 18:24 Lab Results 12/06/22 12/06/22 12/06/22 Range/Units 18:24 18:24 18:24 WBC 17.6 H (3.8-10.6) k/uL RBC 3.67 L (4.30-5.90) m/uL Hgb 11.7 L (13.0-17.5) gm/dL Hct 34.5 L (39.0-53.0) % MCV 94.1 (80.0-100.0) fL MCH 31.9 (25.0-35.0) pg MCHC 33.9 (31.0-37.0) g/dL RDW 12.7 (11.5-15.5) % Plt Count 161 (150-450) k/uL MPV 9.2 Neutrophils % 93 % Lymphocytes % 3 % Monocytes % 3 % Eosinophils % 1 % Basophils % 0 % Neutrophils # 16.4 H (1.3-7.7) k/uL Lymphocytes # 0.5 L (1.0-4.8) k/uL Monocytes # 0.5 (0-1.0) k/uL Eosinophils # 0.1 (0-0.7) k/uL Basophils # 0.0 (0-0.2) k/uL Sodium (137-145) mmol/L Potassium (3.5-5.1) mmol/L Chloride (98-107) mmol/L Carbon Dioxide (22-30) mmol/L Anion Gap mmol/L BUN (9-20) mg/dL Creatinine (0.66-1.25) mg/dL Est GFR (CKD-EPI)AfAm (>60 ml/min/1.73 sqM) Est GFR (CKD-EPI)NonAf (>60 ml/min/1.73 sqM) Glucose (74-99) mg/dL Plasma Lactic Acid Francis 1.8 (0.7-2.0) mmol/L Calcium (8.4-10.2) mg/dL Total Bilirubin (0.2-1.3) mg/dL AST (17-59) U/L ALT (4-49) U/L Alkaline Phosphatase (38-126) U/L Total Protein (6.3-8.2) g/dL Albumin (3.5-5.0) g/dL Urine Color Light Yellow Urine Appearance Clear (Clear) Urine pH 5.0 (5.0-8.0) Ur Specific [place] 1.013 (1.001-1.035) Urine Protein Trace H (Negative) Urine Glucose (UA) Negative (Negative) Urine Ketones Negative (Negative) Urine Blood Large H (Negative) Urine Nitrite Negative (Negative) Urine Bilirubin Negative (Negative) Urine Urobilinogen <2.0 (<2.0) mg/dL Ur Leukocyte Esterase Negative (Negative) Urine RBC >182 H (0-5) /hpf Urine WBC 1 (0-5) /hpf Urine Bacteria Rare H (None) /hpf Urine Mucus Rare H (None) /hpf 12/06/22 Range/Units 18:24 WBC (3.8-10.6) k/uL RBC (4.30-5.90) m/uL Hgb (13.0-17.5) gm/dL Hct (39.0-53.0) % MCV (80.0-100.0) fL MCH (25.0-35.0) pg MCHC (31.0-37.0) g/dL RDW (11.5-15.5) % Plt Count (150-450) k/uL MPV Neutrophils % % Lymphocytes % % Monocytes % % Eosinophils % % Basophils % % Neutrophils # (1.3-7.7) k/uL Lymphocytes # (1.0-4.8) k/uL Monocytes # (0-1.0) k/uL Eosinophils # (0-0.7) k/uL Basophils # (0-0.2) k/uL Sodium 137 (137-145) mmol/L Potassium 4.7 (3.5-5.1) mmol/L Chloride 102 (98-107) mmol/L Carbon Dioxide 25 (22-30) mmol/L Anion Gap 10 mmol/L BUN 71 H (9-20) mg/dL Creatinine 2.21 H (0.66-1.25) mg/dL Est GFR (CKD-EPI)AfAm 33 (>60 ml/min/1.73 sqM) Est GFR (CKD-EPI)NonAf 28 (>60 ml/min/1.73 sqM) Glucose 130 H (74-99) mg/dL Plasma Lactic Acid Francis (0.7-2.0) mmol/L Calcium 8.6 (8.4-10.2) mg/dL Total Bilirubin 0.6 (0.2-1.3) mg/dL AST 34 (17-59) U/L ALT 25 (4-49) U/L Alkaline Phosphatase 65 (38-126) U/L Total Protein 6.2 L (6.3-8.2) g/dL Albumin 3.7 (3.5-5.0) g/dL Urine Color Urine Appearance (Clear) Urine pH (5.0-8.0) Ur Specific [place] (1.001-1.035) Urine Protein (Negative) Urine Glucose (UA) (Negative) Urine Ketones (Negative) Urine Blood (Negative) Urine Nitrite (Negative) Urine Bilirubin (Negative) Urine Urobilinogen (<2.0) mg/dL Ur Leukocyte Esterase (Negative) Urine RBC (0-5) /hpf Urine WBC (0-5) /hpf Urine Bacteria (None) /hpf Urine Mucus (None) /hpf Disposition Clinical Impression: Bilateral inguinal hernia, Renal insufficiency, Fever, Partial small bowel obstruction, Diarrhea Disposition: ADMITTED IP TO THIS HOSP Referrals: Ozzy Padilla MD [Primary Care Provider] - 1-2 days Time of Disposition: 20:29
[2022-12-06 18:53] LABS: Basophils % (A) 0 %; Eosinophils # (A) 0.1 k/uL (0-0.7); Eosinophils % (A) 1 %; HCT 34.5 % (39.0-53.0); HGB 11.7 gm/dL (13.0-17.5); Lymphocytes # (A) 0.5 k/uL (1.0-4.8); Lymphocytes % (A) 3 %; MCH 31.9 pg (25.0-35.0); MCHC 33.9 g/dL (31.0-37.0); MCV 94.1 fL (80.0-100.0); Mean Platelet Volume 9.2; Monocytes # (A) 0.5 k/uL (0-1.0); Monocytes % (A) 3 %; Neutrophils # (A) 16.4 k/uL (1.3-7.7); Neutrophils % (A) 93 %; Platelet Count 161 k/uL (150-450); RBC 3.67 m/uL (4.30-5.90); RDW 12.7 % (11.5-15.5); WBC 17.6 k/uL (3.8-10.6)
[2022-12-06 19:05] LABS: ALT 25 U/L (4-49); AST 34 U/L (17-59); African American GFR (CKD) 33 (>60 ml/min/1.73 sqM); Albumin 3.7 g/dL (3.5-5.0); Alkaline Phosphatase 65 U/L (38-126); Anion Gap 10 mmol/L; Blood Urea Nitrogen 71 mg/dL (9-20); Calcium 8.6 mg/dL (8.4-10.2); Carbon Dioxide 25 mmol/L (22-30); Chloride 102 mmol/L (98-107); Glucose 130 mg/dL (74-99); Non-African American GFR(CKD) 28 (>60 ml/min/1.73 sqM); Potassium 4.7 mmol/L (3.5-5.1); Sodium 137 mmol/L (137-145); Total Bilirubin 0.6 mg/dL (0.2-1.3); Total Protein 6.2 g/dL (6.3-8.2)
[2022-12-06 19:21] LABS: Appearance,Urine Clear (Clear); Bacteria,Urine Rare /hpf; Bilirubin,Urine Negative (Negative); Blood,Urine Large (Negative); Color,Urine Light Yellow; Glucose,Urine (UA) Negative (Negative); Ketones,Urine Negative (Negative); Leukocyte Esterase,Urine Negative (Negative); Mucus,Urine Rare /hpf; Nitrite,Urine Negative (Negative); Protein,Urine Trace (Negative); RBC,Urine >182 /hpf (0-5); Specific Gravity,Urine 1.013 (1.001-1.035); Urobilinogen,Urine <2.0 mg/dL (<2.0); WBC,Urine 1 /hpf (0-5)
[2022-12-06] MEDS ORDERED: SODIUM CHLORIDE 0.9% 1,000 ML IV ONE (20:29)
[2022-12-06 21:03] LABS: Basophils % (A) 0 %; Eosinophils # (A) 0.1 k/uL (0-0.7); Eosinophils % (A) 1 %; HCT 34.4 % (39.0-53.0); HGB 11.4 gm/dL (13.0-17.5); Lymphocytes # (A) 0.6 k/uL (1.0-4.8); Lymphocytes % (A) 3 %; MCH 31.2 pg (25.0-35.0); MCHC 33.1 g/dL (31.0-37.0); MCV 94.2 fL (80.0-100.0); Mean Platelet Volume 9.2; Monocytes # (A) 0.7 k/uL (0-1.0); Monocytes % (A) 4 %; Neutrophils # (A) 16.7 k/uL (1.3-7.7); Neutrophils % (A) 92 %; Platelet Count 153 k/uL (150-450); RBC 3.65 m/uL (4.30-5.90); RDW 12.8 % (11.5-15.5); WBC 18.1 k/uL (3.8-10.6)
[2022-12-07 04:01] LABS: Basophils % (A) 0 %; Eosinophils # (A) 0.1 k/uL (0-0.7); Eosinophils % (A) 0 %; HCT 33.3 % (39.0-53.0); Lymphocytes % (A) 5 %; MCH 31.4 pg (25.0-35.0); MCHC 33.1 g/dL (31.0-37.0); MCV 95.1 fL (80.0-100.0); Mean Platelet Volume 9.3; Monocytes # (A) 1.2 k/uL (0-1.0); Monocytes % (A) 6 %; Neutrophils # (A) 16.1 k/uL (1.3-7.7); Neutrophils % (A) 87 %; Platelet Count 154 k/uL (150-450); RDW 12.8 % (11.5-15.5); WBC 18.5 k/uL (3.8-10.6)
--- NOTE | 2022-12-07 08:43 | P.GSCN ---
History of Present Illness Consult date: 12/07/22 History of present illness: Patient transferred for inguinal hernia, incarcerated. He reports hernia present for over 5 years. He was about to have outpatient surgery when his surgeon left town last year. Last hospitalization for his hernia was 2018 with cardiac work-up and known thoracic aneurysm. Patient was short of breath with pursed-lip breathing. No recent pulmonary assessment. He is passing flatus. Exam reveals large right>left hernia. PLAN: 1. Urgent pulmonary consultation for optimization for urgent surgery. 2. Urgent cardiac risk assessment 3. Chest xray ordered. 4. ECHO ordered. 5. Optimization for surgical intervention, 12/09 Past Medical History Past Medical History: COPD, Dialysis, GERD/Reflux, Hyperlipidemia, Hypertension Additional Past Medical History / Comment(s): Neuromuscular dysfunction of bladder, iron deficiency anemia, neurogenic bladder, pressure ulcers, dissection of thoracic aorta, no longer doing dialysis, previous ETOH abuse, 2018 History of Any Multi-Drug Resistant Organisms: ESBL Year Discovered:: 02/14/19 ESBL-E.coli MDRO Source:: Urine Past Surgical History: No Surgical Hx Reported Additional Past Surgical History / Comment(s): May 2018 thoracic aorta repair at [facility] Past Anesthesia/Blood Transfusion Reactions: No Reported Reaction Past Psychological History: No Psychological Hx Reported Smoking Status: Former smoker Past Alcohol Use History: Abuse, Daily Additional Past Alcohol Use History / Comment(s): quit 1989, began to drink again occasionally 2011 Past Drug Use History: None Reported Additional Drug Use History / Comment(s): pt stopped smoking 03/16/2022 Medications and Allergies Home Medications Medication Instructions Recorded Confirmed Type Metoprolol Succinate (ER) [Toprol 12.5 mg PO DAILY #30 tab.er.24h 09/14/18 12/06/22 Rx XL] Spironolactone [Aldactone] 25 mg PO DAILY #30 tab 09/14/18 12/06/22 Rx Ipratropium/Albuterol Sulfate 1 puff INHALATION RT-TID #1 09/15/18 12/06/22 Rx [Combivent Respimat Inhaler] mist.inhal Sertraline [Zoloft] 25 mg PO DAILY 02/02/19 12/06/22 History Ipratropium-Albuterol Nebulize 3 ml INHALATION RT-QID 10/18/21 12/06/22 History [Duoneb 0.5 mg-3 mg/3 ml Soln] Mirabegron [Myrbetriq] 50 mg PO DAILY 10/18/21 12/06/22 History Ascorbic Acid [Vitamin C] 1,000 mg PO DAILY 12/06/22 12/06/22 History Aspirin EC [Ecotrin Low Dose] 81 mg PO DAILY 12/06/22 12/06/22 History Ferrous Sulfate [Feosol] 325 mg PO DAILY 12/06/22 12/06/22 History Fluticasone Nasal [place] [Flonase 1 - 2 spr EA NOSTRIL DAILY 12/06/22 12/06/22 History Nasal [place]] Furosemide [Lasix] 60 mg PO DAILY 12/06/22 12/06/22 History Magnesium Oxide [Magnesium] 500 mg PO DAILY 12/06/22 12/06/22 History Multivit-Mins/Iron/Folic/Lycop 1 tab PO DAILY 12/06/22 12/06/22 History [Centrum Men's Tablet] Pantoprazole [Protonix] 40 mg PO BID 12/06/22 12/06/22 History Tamsulosin [Flomax] 0.4 mg PO HS 12/06/22 12/06/22 History Allergies Allergy/AdvReac Type Severity Reaction Status Date / Time No Known Allergies Allergy Verified 12/06/22 20:05 Surgical - Exam Vital Signs Temp Pulse Resp BP Pulse Ox 100.5 F H 89 20 99/60 96 12/06/22 18:00 12/06/22 18:00 12/06/22 18:00 12/06/22 18:00 12/06/22 18:00 Results - Labs 12/07/22 03:45 12/06/22 18:24 Abnormal Lab Results - Last 24 Hours (Table) 12/06/22 12/06/22 12/06/22 Range/Units 18:24 18:24 18:24 WBC 17.6 H (3.8-10.6) k/uL RBC 3.67 L (4.30-5.90) m/uL Hgb 11.7 L (13.0-17.5) gm/dL Hct 34.5 L (39.0-53.0) % Neutrophils # 16.4 H (1.3-7.7) k/uL Lymphocytes # 0.5 L (1.0-4.8) k/uL Monocytes # (0-1.0) k/uL BUN 71 H (9-20) mg/dL Creatinine 2.21 H (0.66-1.25) mg/dL Glucose 130 H (74-99) mg/dL Total Protein 6.2 L (6.3-8.2) g/dL Urine Protein Trace H (Negative) Urine Blood Large H (Negative) Urine RBC >182 H (0-5) /hpf Urine Bacteria Rare H (None) /hpf Urine Mucus Rare H (None) /hpf 12/06/22 12/07/22 Range/Units 20:45 03:45 WBC 18.1 H 18.5 H (3.8-10.6) k/uL RBC 3.65 L 3.50 L (4.30-5.90) m/uL Hgb 11.4 L 11.0 L (13.0-17.5) gm/dL Hct 34.4 L 33.3 L (39.0-53.0) % Neutrophils # 16.7 H 16.1 H (1.3-7.7) k/uL Lymphocytes # 0.6 L (1.0-4.8) k/uL Monocytes # 1.2 H (0-1.0) k/uL BUN (9-20) mg/dL Creatinine (0.66-1.25) mg/dL Glucose (74-99) mg/dL Total Protein (6.3-8.2) g/dL Urine Protein (Negative) Urine Blood (Negative) Urine RBC (0-5) /hpf Urine Bacteria (None) /hpf Urine Mucus (None) /hpf Diabetes panel 12/06/22 Range/Units 18:24 Sodium 137 (137-145) mmol/L Potassium 4.7 (3.5-5.1) mmol/L Chloride 102 (98-107) mmol/L Carbon Dioxide 25 (22-30) mmol/L BUN 71 H (9-20) mg/dL Creatinine 2.21 H (0.66-1.25) mg/dL Glucose 130 H (74-99) mg/dL Calcium 8.6 (8.4-10.2) mg/dL AST 34 (17-59) U/L ALT 25 (4-49) U/L Alkaline Phosphatase 65 (38-126) U/L Total Protein 6.2 L (6.3-8.2) g/dL Albumin 3.7 (3.5-5.0) g/dL Calcium panel 12/06/22 Range/Units 18:24 Calcium 8.6 (8.4-10.2) mg/dL Albumin 3.7 (3.5-5.0) g/dL Pituitary panel 12/06/22 Range/Units 18:24 Sodium 137 (137-145) mmol/L Potassium 4.7 (3.5-5.1) mmol/L Chloride 102 (98-107) mmol/L Carbon Dioxide 25 (22-30) mmol/L BUN 71 H (9-20) mg/dL Creatinine 2.21 H (0.66-1.25) mg/dL Glucose 130 H (74-99) mg/dL Calcium 8.6 (8.4-10.2) mg/dL Adrenal panel 12/06/22 Range/Units 18:24 Sodium 137 (137-145) mmol/L Potassium 4.7 (3.5-5.1) mmol/L Chloride 102 (98-107) mmol/L Carbon Dioxide 25 (22-30) mmol/L BUN 71 H (9-20) mg/dL Creatinine 2.21 H (0.66-1.25) mg/dL Glucose 130 H (74-99) mg/dL Calcium 8.6 (8.4-10.2) mg/dL Total Bilirubin 0.6 (0.2-1.3) mg/dL AST 34 (17-59) U/L ALT 25 (4-49) U/L Alkaline Phosphatase 65 (38-126) U/L Total Protein 6.2 L (6.3-8.2) g/dL Albumin 3.7 (3.5-5.0) g/dL
[2022-12-07] MEDS ORDERED: ACETAMINOPHEN TAB 325 MG TAB PO PRN (08:59)
[2022-12-07] MEDS ORDERED: HYDROcodone/APAP 5-325MG 1 EACH TAB PO PRN (08:59)
[2022-12-07] MEDS: IPRATROPIUM-ALBUTEROL 3 ML NEB INHALATION PRN (09:07)
[2022-12-07] MEDS: FORMOTEROL FUMARATE 20 MCG/2 ML NEBU INHALATION SCH ×2 (09:07→19:53)
[2022-12-07] MEDS: BUDESONIDE 1 MG/2 ML NEBU INHALATION SCH ×2 (09:07→19:53)
[2022-12-07] MEDS: HYDROmorphone 0.5 MG/0.5 ML SYRINGE IVP PRN (09:08)
--- NOTE | 2022-12-07 09:24 | XR ---
EXAMINATION TYPE: XR chest 1V portable DATE OF EXAM: 12/07/2022 8:56 AM CLINICAL INDICATION:Male, 77 years old with history of Dyspnea; PH[facility] COMPARISON: Chest radiographs from 09/13/2018 TECHNIQUE: XR chest 1V portable Frontal view of the chest. FINDINGS: Lungs/Pleura: There is flattening of the diaphragm with increased lucency of the lungs. No evidence o f pneumothorax, pleural effusion or focal consolidation. Pulmonary vascularity: Unremarkable. Heart/mediastinum: Cardiomediastinal silhouette is unremarkable. Aortic stents are present. Musculoskeletal: No acute osseous pathology. Midline sternotomy wires are noted. IMPRESSION: 1. No acute cardiopulmonary disease process. 2. COPD changes.
[2022-12-07] MEDS: IPRATROPIUM-ALBUTEROL 3 ML NEB INHALATION SCH ×3 (12:03→19:53)
--- NOTE | 2022-12-07 13:24 | P.CNPUL ---
History of Present Illness Consult date: 12/07/22 Requesting physician: Delma Roberts Reason for consult: dyspnea Chief complaint: Abdominal pain History of present illness: This is a 77-year-old male patient with a history of chronic obstructive pulmonary disease, former smoker, daily alcohol use, gastroesophageal reflux disease, hypertension, hyperlipidemia, neuromuscular dysfunction and the bladder,, previous thoracic aortic aneurysm repair for aortic valve repair. He does have a history of bilateral inguinal hernias and was having issues with abdominal pain and was found to have an incarcerated hernia was transferred from [facility] to here for surgical evaluation. He was also having concern is also having complaints of increasing shortness of breath. Chest x-ray revealed no acute pulmonary process. He states he quit smoking in March 2022. He is not on home oxygen. He is on DuoNeb inhalations and Combivent i nhaler in the outpatient setting. He is seen today in consultation. He is currently maintaining O2 saturations in the 90s on room air. He's afebrile. Hemodynamically stable. White count 18.5. Hemoglobin 11.0. Platelets 154. Sodium 137. Potassium 4.7. Bicarb 25. BUN 71. Creatinine 2.21. Glucose 1:30. Influenza screen negative. RSV screen negative. COVID-19 screen negative. Review of Systems REVIEW OF SYSTEMS: CONSTITUTIONAL: Denies any recent significant weight loss or weight gain. EYES: Denies change in vision. EARS, NOSE, MOUTH, THROAT: Denies headaches, denies sore throat. CARDIOVASCULAR: Denies chest pain, palpitations or syncopal episodes. RESPIRATORY: Positive for shortness of breath, cough, no congestion or hemoptysis. GASTROINTESTINAL: Denies change in appetite, denies abdominal pain GENITOURINARY: Denies hematuria, denies infections. MUSKULOSKELETAL: Positive for pain in the bilateral groins. INTEGUMENTARY: Denies rash, denies eczema. NEUROLOGICAL: Denies recent memory loss, no recent seizure activity. PSYCHIATRIC: Denies anxiety, denies depression. HEMATOLOGIC/LYMPHATIC: Denies anemia, denies enlarged lymph nodes. Past Medical History Past Medical History: COPD, Dialysis, GERD/Reflux, Hyperlipidemia, Hypertension Additional Past Medical History / Comment(s): Neuromuscular dysfunction of bladder, iron deficiency anemia, neurogenic bladder, pressure ulcers, dissection of thoracic aorta, no longer doing dialysis, previous ETOH abuse, [place] 2019 History of Any Multi-Drug Resistant Organisms: ESBL Date of last positivie culture/infection: 02/14/19 ESBL-E.coli MDRO Source:: Urine Past Surgical History: No Surgical Hx Reported Additional Past Surgical History / Comment(s): May 2018 thoracic aorta repair at [facility] Past Anesthesia/Blood Transfusion Reactions: No Reported Reaction Past Psychological History: No Psychological Hx Reported Smoking Status: Former smoker Past Alcohol Use History: Abuse, Daily Additional Past Alcohol Use History / Comment(s): quit 1989, began to drink again occasionally 2011 Past Drug Use History: None Reported Additional Drug Use History / Comment(s): pt stopped smoking 03/16/2022 Medications and Allergies Home Medications Medication Instructions Recorded Confirmed Type Metoprolol Succinate (ER) [Toprol 12.5 mg PO DAILY #30 tab.er.24h 09/14/18 12/06/22 Rx XL] Spironolactone [Aldactone] 25 mg PO DAILY #30 tab 09/14/18 12/06/22 Rx Ipratropium/Albuterol Sulfate 1 puff INHALATION RT-TID #1 09/15/18 12/06/22 Rx [Combivent Respimat Inhaler] mist.inhal Sertraline [Zoloft] 25 mg PO DAILY 02/02/19 12/06/22 History Ipratropium-Albuterol Nebulize 3 ml INHALATION RT-QID 10/18/21 12/06/22 History [Duoneb 0.5 mg-3 mg/3 ml Soln] Mirabegron [Myrbetriq] 50 mg PO DAILY 10/18/21 12/06/22 History Ascorbic Acid [Vitamin C] 1,000 mg PO DAILY 12/06/22 12/06/22 History Aspirin EC [Ecotrin Low Dose] 81 mg PO DAILY 12/06/22 12/06/22 History Ferrous Sulfate [Feosol] 325 mg PO DAILY 12/06/22 12/06/22 History Fluticasone Nasal [place] [Flonase 1 - 2 spr EA NOSTRIL DAILY 12/06/22 12/06/22 History Nasal [place]] Furosemide [Lasix] 60 mg PO DAILY 12/06/22 12/06/22 History Magnesium Oxide [Magnesium] 500 mg PO DAILY 12/06/22 12/06/22 History Multivit-Mins/Iron/Folic/Lycop 1 tab PO DAILY 12/06/22 12/06/22 History [Centrum Men's Tablet] Pantoprazole [Protonix] 40 mg PO BID 12/06/22 12/06/22 History Tamsulosin [Flomax] 0.4 mg PO HS 12/06/22 12/06/22 History Allergies Allergy/AdvReac Type Severity Reaction Status Date / Time No Known Allergies Allergy Verified 12/06/22 20:05 Physical Exam Vitals: Vital Signs Temp Pulse Pulse Resp BP BP Pulse Ox 12/07/22 12:13 80 12/07/22 12:03 81 12/07/22 09:32 84 12/07/22 09:16 85 12/07/22 09:07 83 12/07/22 08:08 98.4 F 79 17 104/56 94 L 12/07/22 01:29 98.4 F 80 19 102/58 93 L 12/06/22 22:30 18 12/06/22 22:19 97.6 F 84 18 95/50 94 L 12/06/22 21:40 97.9 F 82 18 120/57 98 12/06/22 19:37 99.0 F 12/06/22 18:00 100.5 F H 89 20 99/60 96 Intake and Output 12/06/22 12/07/22 12/07/22 22:59 06:59 14:59 Output Total 700 Balance -700 Output: Urine 700 Other: Voiding Method Indwelling Catheter Indwelling Catheter Weight 54.431 kg GENERAL EXAM: Alert, pleasant 77-year-old male, on room air, fairly comfortable in no apparent distress. HEAD: Normocephalic. EYES: Normal reaction of pupils, equal size. NOSE: Clear with pink turbinates. THROAT: No erythema or exudates. NECK: No masses, no JVD. CHEST: No chest wall deformity. LUNGS: Equal air entry with a faint end expiratory wheeze, diminished. CVS: S1 and S2 normal with no audible murmur, regular rhythm. ABDOMEN: No hepatosplenomegaly, normal bowel sounds, no guarding or rigidity. SPINE: No scoliosis or deformity SKIN: No rashes CENTRAL NERVOUS SYSTEM: No focal deficits, tone is normal in all 4 extremities. EXTREMITIES: Bilateral inguinal hernias, right greater than left. There is no peripheral edema. No clubbing, no cyanosis. Peripheral pulses are intact. Results - Laboratory Findings CBC and BMP: 12/07/22 03:45 12/06/22 18:24 Abnormal lab findings: Abnormal Labs 12/06/22 12/06/22 12/06/22 18:24 18:24 18:24 WBC 17.6 H RBC 3.67 L Hgb 11.7 L Hct 34.5 L Neutrophils # 16.4 H Lymphocytes # 0.5 L Monocytes # BUN 71 H Creatinine 2.21 H Glucose 130 H Total Protein 6.2 L Urine Protein Trace H Urine Blood Large H Urine RBC >182 H Urine Bacteria Rare H Urine Mucus Rare H 12/06/22 12/07/22 20:45 03:45 WBC 18.1 H 18.5 H RBC 3.65 L 3.50 L Hgb 11.4 L 11.0 L Hct 34.4 L 33.3 L Neutrophils # 16.7 H 16.1 H Lymphocytes # 0.6 L Monocytes # 1.2 H BUN Creatinine Glucose Total Protein Urine Protein Urine Blood Urine RBC Urine Bacteria Urine Mucus - Diagnostic Findings Chest x-ray: image reviewed Assessment and Plan Assessment: Abdominal pain secondary to incarcerated inguinal hernias, right greater than left Acute exacerbation of chronic obstructive pulmonary disease History of greater than 50 years smoking, quit March 2022 History of previous heavy alcohol use History of neurogenic bladder History of thoracic aortic aneurysm/aortic valve repair at [facility] May 2018 Hypertension Hyperlipidemia History of depression Plan: The patient was seen and evaluated Chest x-ray, labs and medications reviewed Initiate Pulmicort and Perforomist inhalations Initiate DuoNeb inhalations, Solu-Medrol Obtain a bedside spirometry Educated regarding use of the incentive spirometer We will continue to follow and make further recommendations based on his clinical status I have personally seen and examined the patient, performed the documentation and the assessment and plan as written. Number of minutes spent on the visit: 20.
[2022-12-07] MEDS: methylPREDNISolone SOD SUCCI 125 MG/2 ML VIAL IV SCH ×3 (13:42→23:41)
[2022-12-07 15:18] VITALS: BMI 19.3
[2022-12-07] MEDS ORDERED: LORazepam 2 MG/ML INJ IV PRN ×3 (15:37)
[2022-12-07] MEDS ORDERED: THIAMINE 100 MG/ML 2 ML VIAL IM STA (15:37)
[2022-12-07] MEDS ORDERED: LEVOFLOXACIN 500MG-D5W PMX 500 MG in DEXTROSE/WATER 1 100ML.BAG IVPB SCH (16:00)
[2022-12-07] MEDS: HEPARIN SODIUM,PORCINE 5,000 UNIT/ML 1 ML VIAL SQ SCH (20:17)
[2022-12-07] MEDS: TAMSULOSIN 0.4 MG CAP.ER.24H PO SCH (20:17)
--- NOTE | 2022-12-07 20:55 | HP ---
HISTORY AND PHYSICAL CHIEF COMPLAINT: Abdominal pain and possible small bowel obstruction. HISTORY OF PRESENT ILLNESS: This is a 77-year-old gentleman with a past medical history of multiple medical problems, admitted, referred from hospital with small-bowel obstruction secondary to hernia. The patient has some diarrhea and surgical evaluation is in progress. The patient also had some pain in the scrotal and hernia area also. The patient has shortness of breath. The patient has moderately severe COPD. Optimize treatment is planned by Pulmonary. Chest x-ray was reviewed. PAST MEDICAL HISTORY: Reviewed include COPD, dialysis, GERD. Rest of the history and rest of the chart is also reviewed. HOME MEDICATIONS: Reviewed include fluticasone, Flomax. Dose and rest of medications reviewed. ALLERGIES: None. FAMILY HISTORY: No history of heart disease or strokes in the family. SOCIAL HISTORY: Previous history of smoking, ETOH. REVIEW OF SYSTEMS: A 14-point review is negative except as mentioned earlier. PHYSICAL EXAMINATION: VITAL SIGNS: Pulse 84, blood pressure 110/56, respirations 17. HEENT: Conjunctivae normal. NECK: No JVD. CARDIOVASCULAR: S1, S2 normal. RESPIRATIONS: A few scattered rhonchi. ABDOMEN: Soft, mild diffuse discomfort. No guarding. No rigidity. Bilateral hernias significant with some tenderness also. LABORATORY DATA: WBC 18.5. ASSESSMENT: 1. Bilateral inguinal hernia with possible small bowel obstruction. 2. Possible incarcerated inguinal hernias, right more than the left. 3. Chronic obstructive pulmonary disease, moderate severe. 4. History of EtOH. 5. History of thoracic aortic aneurysm. 6. Hypertension. 7. History of hyperlipidemia. 8. History of hemodialysis. 9. Chronic kidney disease. RECOMMENDATIONS AND DISCUSSION: This is a 77-year-old gentleman, who presented with multiple complex medical issues, we will monitor the patient closely. I would optimize the fluid electrolyte status, bronchodilators, otherwise empiric antibiotics. Follow the cultures and I would also recommend Nephrology consultation. See orders for further details. Prognosis guarded. Further recommendations to follow. The patient is stable. We will optimize the cardiovascular status prior to surgical intervention. MMSHAKAL / SUREKHAN: [id number] / MTDD
--- NOTE | 2022-12-07 21:31 | P.CONS ---
History of Present Illness - Reason for Consult Consult date: 12/07/22 Small bowel obstruction questionable infection Requesting physician: Natividad Zavala - Chief Complaint Abdominal pain x few days - History of Present Illness Patient is a 77-year-old male with a past medical his significant for hypertension hyperlipidemia reflux COPD presenting to the hospital for abdominal pain apparently the patient presented to outside hospital initially with the patient will be diagnosed with small bowel obstruction secondary to a hernia p atient mention abdominal pain has been going on for 2 days before presenting to the hospital pain has been mostly in the lower abdominal area describing to be sharp and colicky almost 8 out of 10 when severe without radiation associated nausea vomiting patient patient has been passing gas denies any bowel movement patient on presentation to the hospital did have fever 100.5 degrees for a height patient white count 17.6 which is up to 18.5 today BUN/creatinine has been mildly elevated during issues mostly hematuria no pyuria influenza RSV and COVID testing was negative patient did have a chest x-ray no acute cardiopulmonary disease possible COPD changes infectious was consulted because of elevated white count concerning for infection patient has been evaluated by general surgery recommending optimization of his cardiopulmonary condition before proceeding with surgery Review of Systems Positive point and negatives has been mentioned in the HPI, complete review of systems was performed and all other systems are negative Past Medical History Past Medical History: COPD, Dialysis, GERD/Reflux, Hyperlipidemia, Hypertension Additional Past Medical History / Comment(s): Neuromuscular dysfunction of bladder, iron deficiency anemia, neurogenic bladder, pressure ulcers, dissection of thoracic aorta, no longer doing dialysis, previous ETOH abuse, 2018 History of Any Multi-Drug Resistant Organisms: ESBL Year Discovered:: 02/14/19 ESBL-E.coli MDRO Source:: Urine Past Surgical History: No Surgical Hx Reported Additional Past Surgical History / Comment(s): May 2018 thoracic aorta repair at [facility] Past Anesthesia/Blood Transfusion Reactions: No Reported Reaction Past Psychological History: No Psychological Hx Reported Smoking Status: Former smoker Past Alcohol Use History: Abuse, Daily Additional Past Alcohol Use History / Comment(s): quit 1989, began to drink again occasionally 2011 Past Drug Use History: None Reported Additional Drug Use History / Comment(s): pt stopped smoking 03/16/2022 Medications and Allergies Home Medications Medication Instructions Recorded Confirmed Type Metoprolol Succinate (ER) [Toprol 12.5 mg PO DAILY #30 tab.er.24h 09/14/18 12/06/22 Rx XL] Ipratropium/Albuterol Sulfate 1 puff INHALATION RT-TID #1 09/15/18 12/06/22 Rx [Combivent Respimat Inhaler] mist.inhal Sertraline [Zoloft] 25 mg PO DAILY 02/02/19 12/06/22 History Ipratropium-Albuterol Nebulize 3 ml INHALATION RT-QID 10/18/21 12/06/22 History [Duoneb 0.5 mg-3 mg/3 ml Soln] Ascorbic Acid [Vitamin C] 1,000 mg PO DAILY 12/06/22 12/06/22 History Aspirin EC [Ecotrin Low Dose] 81 mg PO DAILY 12/06/22 12/06/22 History Fluticasone Nasal [place] [Flonase 1 - 2 spr EA NOSTRIL DAILY 12/06/22 12/06/22 History Nasal [place]] Magnesium Oxide [Magnesium] 500 mg PO DAILY 12/06/22 12/06/22 History Multivit-Mins/Iron/Folic/Lycop 1 tab PO DAILY 12/06/22 12/06/22 History [Centrum Men's Tablet] Pantoprazole [Protonix] 40 mg PO BID 12/06/22 12/06/22 History Tamsulosin [Flomax] 0.4 mg PO HS 12/06/22 12/06/22 History Acetaminophen Tab [Tylenol] 650 mg PO Q6HR PRN tab 12/14/22 Rx Budesonide-Formot 160-4.5 Mcg 2 puff INHALATION RT-BID each 12/14/22 Rx [Symbicort 160-4.5 Mcg Inhaler] Heparin Sodium,Porcine (1 ml) 5,000 unit SQ Q12HR each 12/14/22 Rx [Heparin Sodium] INSULIN ASPART (NovoLOG) [NovoLOG 0 unit SQ ACHS each 12/14/22 Rx (formulary)] Ipratropium-Albuterol Nebulize 3 ml INHALATION RT-Q2H PRN each 12/14/22 Rx [Duoneb 0.5 mg-3 mg/3 ml Soln] Loperamide [Imodium] 2 mg PO QID PRN cap 12/14/22 Rx Piperacillin-Tazobactam [Zosyn] 3.375 gm IVPB Q8HR 7 Days #21 each 12/14/22 Rx Psyllium [place] 100% [Metamucil 6 gm PO BID PRN packet 12/14/22 Rx Packet] Sennosides [Senokot] 8.6 mg PO BID PRN tab 12/14/22 Rx Sodium Bicarbonate Tab 650 mg PO BID tab 12/14/22 Rx Thiamine [Vitamin B-1] 100 mg PO DAILY tab 12/14/22 Rx predniSONE 10 mg PO DIRECTED #30 tab 12/14/22 Rx Allergies Allergy/AdvReac Type Severity Reaction Status Date / Time No Known Allergies Allergy Verified 12/06/22 20:05 Physical Exam Vitals: Vital Signs Temp Pulse Pulse Resp BP BP Pulse Ox 12/07/22 12:13 80 12/07/22 12:03 81 12/07/22 09:32 84 12/07/22 09:16 85 12/07/22 09:07 83 12/07/22 08:08 98.4 F 79 17 104/56 94 L 12/07/22 01:29 98.4 F 80 19 102/58 93 L 12/06/22 22:30 18 12/06/22 22:19 97.6 F 84 18 95/50 94 L 12/06/22 21:40 97.9 F 82 18 120/57 98 12/06/22 19:37 99.0 F 12/06/22 18:00 100.5 F H 89 20 99/60 96 Intake and Output 12/06/22 12/07/22 12/07/22 22:59 06:59 14:59 Output Total 700 Balance -700 Output: Urine 700 Other: Voiding Method Indwelling Catheter Indwelling Catheter Weight 54.431 kg GENERAL DESCRIPTION: Elderly male lying in bed, no distress. No tachypnea or ac cessory muscle of respiration use. HEENT: Shows Pallor , no scleral icterus. Oral mucous membrane is dry. No pharyngeal erythema or thrush NECK: Trachea central, no thyromegaly. LUNGS: Unlabored breathing. Coarse breast was bilaterally HEART: S1, S2, regular rate and rhythm. No loud murmur ABDOMEN: Soft, mild distention and tenderness EXTREMITIES: No edema of feet. SKIN: No rash, no masses palpable. NEUROLOGICAL: The patient is awake, alert, oriented x3, mood and affect normal. Results CBC & Chem 7: 12/14/22 05:50 12/14/22 05:50 Labs: Abnormal Lab Results - Last 24 Hours (Table) 12/06/22 12/06/22 12/06/22 Range/Units 18:24 18:24 18:24 WBC 17.6 H (3.8-10.6) k/uL RBC 3.67 L (4.30-5.90) m/uL Hgb 11.7 L (13.0-17.5) gm/dL Hct 34.5 L (39.0-53.0) % Neutrophils # 16.4 H (1.3-7.7) k/uL Lymphocytes # 0.5 L (1.0-4.8) k/uL Monocytes # (0-1.0) k/uL BUN 71 H (9-20) mg/dL Creatinine 2.21 H (0.66-1.25) mg/dL Glucose 130 H (74-99) mg/dL Total Protein 6.2 L (6.3-8.2) g/dL Urine Protein Trace H (Negative) Urine Blood Large H (Negative) Urine RBC >182 H (0-5) /hpf Urine Bacteria Rare H (None) /hpf Urine Mucus Rare H (None) /hpf 12/06/22 12/07/22 Range/Units 20:45 03:45 WBC 18.1 H 18.5 H (3.8-10.6) k/uL RBC 3.65 L 3.50 L (4.30-5.90) m/uL Hgb 11.4 L 11.0 L (13.0-17.5) gm/dL Hct 34.4 L 33.3 L (39.0-53.0) % Neutrophils # 16.7 H 16.1 H (1.3-7.7) k/uL Lymphocytes # 0.6 L (1.0-4.8) k/uL Monocytes # 1.2 H (0-1.0) k/uL BUN (9-20) mg/dL Creatinine (0.66-1.25) mg/dL Glucose (74-99) mg/dL Total Protein (6.3-8.2) g/dL Urine Protein (Negative) Urine Blood (Negative) Urine RBC (0-5) /hpf Urine Bacteria (None) /hpf Urine Mucus (None) /hpf Assessment and Plan (1) Incarcerated inguinal hernia, bilateral Status: Acute Code(s): K40.00 - BI INGUINAL HERNIA, W OBST, W/O GANGRENE, NOT SPCF RECUR SNOMED Code(s): 607406610 (2) Leukocytosis Status: Acute Code(s): D72.829 - ELEVATED WHITE BLOOD CELL COUNT, UNSPECIFIED SNOMED Code(s): 638684213 (3) Partial small bowel obstruction Status: Acute Code(s): K56.600 - PARTIAL INTESTINAL OBSTRUCTION, UNSPECIFIED TO CAUSE SNOMED Code(s): 230500569 Plan: 1patient present hospital abdominal pain in this patient has been diagnosed small bowel obstruction outside facility secondary to hernia, in this patient with evidence of elevated white count abdominal distention we will need to cover for the enteric gram-negative the likely pathogen urine did not show any evidence of pyuria chest x-ray was negative for any pneumonia. 2patient with renal insufficiency and high risk of nephrotoxicity. 3We will start the patient on Zosyn 3.375 g every 8 hours while waiting for his condition to stabilize and monitor clinical course closely We will follow on clinical condition and cultures to further adjust medication if needed Thank you for this consultation we will follow the patient along with you Dictation was produced using [employer] dictation software. please excuse any grammatical, word or spelling errors. Time with Patient: Greater than 30
[2022-12-07] MEDS: PIPERACILLIN-TAZOBACTAM 3.375 GM in SODIUM CHLORIDE 0.9% 100 ML IVPB SCH (23:41)
[2022-12-08] MEDS: methylPREDNISolone SOD SUCCI 125 MG/2 ML VIAL IV SCH ×4 (05:13→23:25)
[2022-12-08] MEDS: BUDESONIDE 1 MG/2 ML NEBU INHALATION SCH ×2 (07:12→20:33)
[2022-12-08] MEDS: IPRATROPIUM-ALBUTEROL 3 ML NEB INHALATION SCH ×4 (07:12→20:33)
[2022-12-08] MEDS: FORMOTEROL FUMARATE 20 MCG/2 ML NEBU INHALATION SCH ×2 (07:12→20:33)
[2022-12-08] MEDS: PIPERACILLIN-TAZOBACTAM 3.375 GM in SODIUM CHLORIDE 0.9% 100 ML IVPB SCH ×3 (08:46→23:25)
[2022-12-08] MEDS: THIAMINE 100 MG TAB PO SCH (08:47)
[2022-12-08] MEDS: HEPARIN SODIUM,PORCINE 5,000 UNIT/ML 1 ML VIAL SQ SCH ×2 (08:47→21:06)
[2022-12-08] MEDS: SERTRALINE 25 MG TAB PO SCH ×2 (08:47→08:51)
[2022-12-08] MEDS: METOPROLOL SUCCINATE (ER) 25 MG TAB.ER.24H PO SCH (08:47)
[2022-12-08] MEDS: NON FORMULARY DRUG (Mirabegron [Myrbetriq] 50 MG Tab.Er.24h) PO SCH (08:48)
--- NOTE | 2022-12-08 10:50 | CA ---
Transthoracic Echo Report Name: Doug Pemberton Age: 77 Gender: M : 1945 Exam Date: 12/07/2022 14:41 Exam Location: [place] [facility] Ht (in): 66 Wt (lb): 120 Ordering Physician: Delma Roberts MD Attending/Referring Phys: Armando BELL [employer] Anand Cooper Procedure CPT: Indications: chf Cardiac Hx: Technical Quality: Technically difficult study Contrast 1: Total Dose (mL): Contrast 2: Total Dose (mL): MEASUREMENTS (Male / Female) Normal Values 2D ECHO LV Diastolic Diameter PLAX 4.0 cm 4.2 - 5.9 / 3.9 - 5.3 cm LV Systolic Diameter PLAX 2.7 cm IVS Diastolic Thickness 0.8 cm 0.6 - 1.0 / 0.6 - 0.9 cm LVPW Diastolic Thickness 0.9 cm 0.6 - 1.0 / 0.6 - 0.9 cm LV Relative Wall Thickness 0.4 RV Internal Dim ED PLAX 4.3 cm LVOT Diameter 2.1 cm Aortic Root Diameter 3.2 cm LV Diastolic Volume MOD 4C 40.7 cm??? LV Systolic Volume MOD 4C 15.2 cm??? LV Ejection Fraction MOD 4C 62.5 % LV Cardiac Index MOD 4C 1362.6 cm???/min???m??? LV Diastolic Length 4C 6.9 cm LV Systolic Length 4C 6.3 cm DOPPLER AV Peak Velocity 102.0 cm/s AV Peak Gradient 4.2 mmHg LVOT Peak Velocity 77.0 cm/s LVOT Peak Gradient 2.4 mmHg AV Area Cont Eq pk 2.6 cm??? MV Peak Velocity 103.5 cm/s MV Peak Gradient 4.3 mmHg MV Mean Velocity 44.6 cm/s MV Mean Gradient 1.1 mmHg MV Velocity Time Integral 32.2 cm Mitral E Point Velocity 71.3 cm/s Mitral A Point Velocity 98.2 cm/s Mitral E to A Ratio 0.7 MV Deceleration Time 246.3 ms MV E' Velocity 10.7 cm/s Mitral E to MV E' Ratio 6.6 TR Peak Velocity 284.4 cm/s TR Peak Gradient 32.3 mmHg Right Ventricular Systolic Press 37.4 mmHg PV Peak Velocity 85.3 cm/s PV Peak Gradient 2.9 mmHg FINDINGS Left Ventricle Normal LV size and wall thickness.left ventricular ejection fraction is estimated at 55-60 %. No obvious regional wall motion abnormality appreciated. Grade 1 diastolic dysfunction Right Ventricle Moderate right ventricular dilatation. RVSP 38 mmHg Right Atrium Moderate right atrial dilatation Left Atrium Normal left atrial size. Mitral Valve Structurally normal mitral valve. No mitral regurgitation. Aortic Valve Aortic valve not well visualized. No aortic valve stenosis or regurgitation. Tricuspid Valve Structurally normal tricuspid valve. Moderate to severe TR. Pulmonic Valve Pulmonic valve not well visualized. No pulmonic regurgitation. Pericardium Normal pericardium. Aorta Normal size aortic root . CONCLUSIONS Technically limited off axis views. Normal LV size and systolic function. EF 55% next No obvious regional wall motion abnormality Grade 1 diastolic dysfunction Moderate to severe tricuspid regurgitation No other significant valvular dysfunction No prior echo to compare with Previewed by: Dr Jay Ramos (Electronically Signed) Final Date: 08 December 2022 10:49
--- NOTE | 2022-12-08 11:19 | P.CRDCN ---
History of Present Illness Consult date: 12/08/22 History of present illness: HISTORY OF PRESENTING ILLNESS Patient is a 77-year-old male with past medical history of aortic dissection status post repair at [facility] in 2019, thrombosis of subclavian artery, hypertension, dyslipidemia, former tobacco use and COPD. He sees Dr. Hartley in clinic. Patient has been dealing with abdominal pain for last 3-4 days prior to the hospital. On presentation he was found to have small bowel obstruction because of a hiatal hernia and is being evaluated for possible surgery. Cardiology was consulted for cardiovascular perioperative evaluation. Patient denies having any chest pain chest pressure or shortness of breath. He denies having any reduction in his excess tolerance lately. He was fairly active without any cardiac vessel symptoms. Blood pressure 147/62, heart rate 84 beats a minute DIAGNOSTICS Laboratory reviewed, hemoglobin is 11, BUN 71, creatinine 2.21. Home cardiac medications include aspirin, Lasix 60 mg, Spiriva lactone 25 mg, metoprolol succinate 12.5 mg daily. REVIEW OF SYSTEMS 14 point review of system is negative except what is mentioned above in HPI. PHYSICAL EXAMINATION Vital signs reviewed. Head: Normocephalic. Eyes: Sclerae nonicteric. Neck: Brisk carotid upstroke, no jugular venous distention. Lungs: Clear to auscultation. Heart: Iregular rate and rhythm, S1-S2, no S3, no murmur or rub. Abdomen: Tender to touch lower quadrant. Hypoactive bowel sounds Extremities: No edema, intact distal pulses. ASSESSMENT Perioperative cardiac risk assessment for heart or lung repair for small bowel obstruction DELROY, creatinine 2.2. Baseline around 1.5 Prior history of aortic dissection status post repair in 2019 Chronic COPD, not in exacerbation Hypertension Hyperlipidemia PLAN Echocardiogram was reviewed which was normal LV systolic function, grade 1 diastolic dysfunction and moderate right ventricular dilatation suggestive of mild pulmonary hypertension. Aortic root appears to be intact. Patient is normotensive with no concerns of aortic dissection at this time. He does not have any signs of acute ischemia or arrhythmias or congestive heart failure. Obtain EKG as patient seems to have irregular pulse which I feel is sinus arrythmia. Stop Lasix and Aldactone Continue metoprolol XL. Increase dose to 25 mg daily I donot see reason for him to be on lasix. Will not resume it on discharge. Consult nephrology if renal function doensot improve. Patient is at moderate risk for a moderate risk procedure using RCRI score. May proceeded with surgeon's discretion once patient's renal function improves. Past Medical History Past Medical History: COPD, Dialysis, GERD/Reflux, Hyperlipidemia, Hypertension Additional Past Medical History / Comment(s): Neuromuscular dysfunction of bladder, iron deficiency anemia, neurogenic bladder, pressure ulcers, dissection of thoracic aorta, no longer doing dialysis, previous ETOH abuse, 2018 History of Any Multi-Drug Resistant Organisms: ESBL Date of last positivie culture/infection: 02/14/19 ESBL-E.coli MDRO Source:: Urine Past Surgical History: No Surgical Hx Reported Additional Past Surgical History / Comment(s): May 2018 thoracic aorta repair at [facility] Past Anesthesia/Blood Transfusion Reactions: No Reported Reaction Past Psychological History: No Psychological Hx Reported Smoking Status: Former smoker Past Alcohol Use History: Abuse, Daily Additional Past Alcohol Use History / Comment(s): quit 1989, began to drink again occasionally 2011 Past Drug Use History: None Reported Additional Drug Use History / Comment(s): pt stopped smoking 03/16/2022 Medications and Allergies Home Medications Medication Instructions Recorded Confirmed Type Metoprolol Succinate (ER) [Toprol 12.5 mg PO DAILY #30 tab.er.24h 09/14/18 12/06/22 Rx XL] Spironolactone [Aldactone] 25 mg PO DAILY #30 tab 09/14/18 12/06/22 Rx Ipratropium/Albuterol Sulfate 1 puff INHALATION RT-TID #1 09/15/18 12/06/22 Rx [Combivent Respimat Inhaler] mist.inhal Sertraline [Zoloft] 25 mg PO DAILY 02/02/19 12/06/22 History Ipratropium-Albuterol Nebulize 3 ml INHALATION RT-QID 10/18/21 12/06/22 History [Duoneb 0.5 mg-3 mg/3 ml Soln] Mirabegron [Myrbetriq] 50 mg PO DAILY 10/18/21 12/06/22 History Ascorbic Acid [Vitamin C] 1,000 mg PO DAILY 12/06/22 12/06/22 History Aspirin EC [Ecotrin Low Dose] 81 mg PO DAILY 12/06/22 12/06/22 History Ferrous Sulfate [Feosol] 325 mg PO DAILY 12/06/22 12/06/22 History Fluticasone Nasal [place] [Flonase 1 - 2 spr EA NOSTRIL DAILY 12/06/22 12/06/22 History Nasal [place]] Furosemide [Lasix] 60 mg PO DAILY 12/06/22 12/06/22 History Magnesium Oxide [Magnesium] 500 mg PO DAILY 12/06/22 12/06/22 History Multivit-Mins/Iron/Folic/Lycop 1 tab PO DAILY 12/06/22 12/06/22 History [Centrum Men's Tablet] Pantoprazole [Protonix] 40 mg PO BID 12/06/22 12/06/22 History Tamsulosin [Flomax] 0.4 mg PO HS 12/06/22 12/06/22 History Allergies Allergy/AdvReac Type Severity Reaction Status Date / Time No Known Allergies Allergy Verified 12/06/22 20:05 Physical Exam Vitals: Vital Signs Temp Pulse Pulse Resp BP Pulse Ox 12/08/22 07:38 96 12/08/22 07:27 96 12/08/22 07:26 96 12/08/22 07:15 84 147/62 12/08/22 07:12 96 12/08/22 02:00 99.1 F 89 18 123/63 94 L 12/07/22 20:17 96 12/07/22 20:03 98 12/07/22 19:53 99 12/07/22 19:17 98.7 F 99 18 131/55 92 L 12/07/22 16:34 84 12/07/22 16:20 85 12/07/22 13:07 97.5 F L 84 17 110/56 90 L 12/07/22 12:13 80 12/07/22 12:03 81 Intake and Output 12/07/22 12/08/22 12/08/22 22:59 06:59 14:59 Output Total 1000 1025 Balance -1000 -1025 Output: Urine 1000 1025 Other: Voiding Method Indwelling Catheter Indwelling Catheter Weight 54.431 kg Results 12/07/22 03:45 12/06/22 18:24 Current Medications Generic Name Dose Route Start Last Admin Trade Name Freq PRN Reason Stop Dose Admin Acetaminophen 650 mg 12/07/22 08:59 Acetaminophen Tab 325 Mg Tab PO Q6HR PRN Fever and/ or Pain Hydrocodone Bitart/Acetaminophen 1 each 12/07/22 08:59 Hydrocodone/Apap 5-325mg 1 Each Tab PO Q6HR PRN Pain Albuterol/Ipratropium 3 ml 12/07/22 12:00 12/08/22 07:12 Ipratropium-Albuterol 3 Ml Neb INHALATION 3 ml RT-QID HOME Administration Albuterol/Ipratropium 3 ml 12/07/22 08:47 12/07/22 09:07 Ipratropium-Albuterol 3 Ml Neb INHALATION 3 ml RT-Q2H PRN Administration Shortness Of Breath Or Wheezing Budesonide 1 mg 12/07/22 09:00 12/08/22 07:12 Budesonide 1 Mg/2 Ml Nebu INHALATION 1 mg RT-BID HOME Administration Formoterol Fumarate 20 mcg 12/07/22 09:00 12/08/22 07:12 Formoterol Fumarate 20 Mcg/2 Ml Nebu INHALATION 20 mcg RT-BID HOME Administration Heparin Sodium (Porcine) 5,000 unit 12/07/22 21:00 12/08/22 08:47 Heparin Sodium,Porcine 5,000 Unit/Ml 1 Ml Vial SQ 5,000 unit Q12HR HOME Administration Hydromorphone HCl 0.5 mg 12/07/22 08:59 12/07/22 09:08 Hydromorphone 0.5 Mg/0.5 Ml Syringe IVP 0.5 mg Q6HR PRN Administration Severe Pain (Scale 7 to 10) Piperacillin Sod/Tazobactam 100 mls @ 25 mls/hr 12/08/22 00:00 12/08/22 08:46 Sod 3.375 gm/ Sodium Chloride IVPB 25 mls/hr Q8HR HOME Administration Protocol Lorazepam 2 mg 12/07/22 15:37 Lorazepam 2 Mg/Ml Inj IV 12/09/22 15:37 Q10M PRN CIWA 16 or higher Lorazepam 1 mg 12/07/22 15:37 Lorazepam 2 Mg/Ml Inj IV Q1HR PRN CIWA 10 to 15 Lorazepam 1 mg 12/07/22 15:37 Lorazepam 2 Mg/Ml Inj IV Q2HR PRN CIWA 8 or 9 Methylprednisolone Sodium Succinate 60 mg 12/07/22 12:00 12/08/22 05:13 Methylprednisolone Sod Succi 125 Mg/2 Ml Vial IV 60 mg Q6HR HOME Administration Metoprolol Succinate 12.5 mg 12/08/22 09:00 12/08/22 08:47 Metoprolol Succinate (Er) 25 Mg Tab.Er.24h PO 12.5 mg DAILY HOME Administration Non-Formulary Medication 50 mg 12/08/22 09:00 12/08/22 08:48 Mirabegron [Myrbetriq] PO Not Given DAILY HOME Sertraline HCl 25 mg 12/08/22 09:00 12/08/22 08:51 Sertraline 25 Mg Tab PO Not Given DAILY HOME Tamsulosin HCl 0.4 mg 12/07/22 21:00 12/07/22 20:17 Tamsulosin 0.4 Mg Cap.Er.24h PO 0.4 mg HS HOME Administration Thiamine HCl 100 mg 12/08/22 09:00 12/08/22 08:47 Thiamine 100 Mg Tab PO 100 mg DAILY HOME Administration Intake and Output 12/07/22 12/08/22 12/08/22 22:59 06:59 14:59 Output Total 1000 1025 Balance -1000 -1025 Output: Urine 1000 1025 Other: Voiding Method Indwelling Catheter Indwelling Catheter Weight 54.431 kg 12/07/22 03:45 12/06/22 18:24
[2022-12-08 11:24] LABS: Basophils # (A) 0.01 X 10*3/uL (0.00-0.10); Basophils % (A) 0.1 %; Eosinophils # (A) 0 X 10*3/uL (0.04-0.35); Eosinophils % (A) 0 %; HCT 30.1 % (37.2-50.0); HGB 9.5 d/dL (12.0-17.0); Lymphocytes # (A) 0.46 X 10*3/uL (0.90-5.00); Lymphocytes % (A) 3.8 %; MCH 30.7 pg (27.0-32.0); MCHC 31.6 d/dL (32.0-37.0); MCV 97.4 FL (80.0-97.0); Mean Platelet Volume 12.3 FL (9.5-12.2); Monocytes # (A) 0.25 X 10*3/uL (0.20-1.00); Monocytes % (A) 2.1 %; NRBC Per 100 WBC 0 X 10*3/uL (0.00-0.01); Neutrophils # (A) 11.17 X 10*3/uL (1.80-7.70); Neutrophils % (A) 93.2 %; Platelet Count 146 X 10*3/uL (140-440); RBC 3.09 X 10*6/uL (4.10-5.60); RDW 13.6 % (11.5-14.5); WBC 11.98 X 10*3/uL (4.50-10.00)
[2022-12-08 11:27] LABS: BUN/Creat Ratio 24.05 Ratio (12.00-20.00); Blood Urea Nitrogen 50.5 mg/dL (9.0-27.0); Calcium 8.4 mg/dL (8.7-10.3); Carbon Dioxide 22.9 mmol/L (21.6-31.8); Chloride 108 mmol/L (96-109); Glucose 157 mg/dL (70-110); Potassium 4.7 mmol/L (3.5-5.5); Sodium 142 mmol/L (135-145)
--- NOTE | 2022-12-08 11:52 | P.PN ---
Subjective Progress Note Date: 12/08/22 This is a 77-year-old male patient with a history of chronic obstructive pulmonary disease, former smoker, daily alcohol use, gastroesophageal reflux disease, hypertension, hyperlipidemia, neuromuscular dysfunction and the bladder,, previous thoracic aortic aneurysm repair for aortic valve repair. He does have a history of bilateral inguinal hernias and was having issues with abdominal pain and was found to have an incarcerated hernia was transferred from [facility] to here for surgical evaluation. He was also having concern is also having complaints of increasing shortness of breath. Chest x-ray revealed no acute pulmonary process. He states he quit smoking in March 2022. He is not on home oxygen. He is on DuoNeb inhalations and Combivent inhaler in the outpatient setting. He is seen today in consultation. He is currently maintaining O2 saturations in the 90s on room air. He's afebrile. Hemodynamically stable. White count 18.5. Hemoglobin 11.0. Platelets 154. Sodium 137. Potassium 4.7. Bicarb 25. BUN 71. Creatinine 2.21. Glucose 130. Influenza screen negative. RSV screen negative. COVID-19 screen negative. The patient is seen today 12/08/2022 in follow-up on the regular medical floor. He is currently sitting up having breakfast. Awake and alert in no acute distress. He is maintaining good O2 saturations in the 90s on room air. His FEV1 value is 0.53 L which is 20% of predicted. Gold stage IV COPD. He is breathing easier today compared to yesterday. He had been initiated on Pulmicort and Perforomist inhalations, DuoNeb inhalations, IV Solu-Medrol. Antibiotics in the form of Zosyn. Heparin for DVT prophylaxis. Currently in the CIWA protocol. No Ativan required. Plan is for surgical intervention regarding incarcerated hernia tomorrow. White count 11.9. Hemoglobin 9.5. Platelets 146. Sodium 142. Potassium 4.7. Bicarb 23. BUN 51. Creatinine 2.1. Glucose 157. Pro-calcitonin was 1.29. Objective - Vital Signs Vital signs: Vital Signs Temp 99.1 F 12/08/22 02:00 Pulse 88 12/08/22 11:40 Resp 18 12/08/22 02:00 BP 147/62 12/08/22 07:15 Pulse Ox 94 L 12/08/22 02:00 FiO2 Intake & Output 12/07/22 12/08/22 12/08/22 18:59 06:59 18:59 Output Total 1000 1025 Balance -1000 -1025 Weight 54.431 kg Output: Urine 1000 1025 Other: Voiding Method Indwelling Catheter Indwelling Catheter Indwelling Catheter - Exam GENERAL EXAM: Alert, pleasant 77-year-old male, on room air, comfortable in no apparent distress. HEAD: Normocephalic. EYES: Normal reaction of pupils, equal size. NOSE: Clear with pink turbinates. THROAT: Edentulous. No erythema or exudates. NECK: No masses, no JVD. CHEST: No chest wall deformity. LUNGS: Equal air entry with a faint end expiratory wheeze, diminished. CVS: S1 and S2 normal with no audible murmur, regular rhythm. ABDOMEN: No hepatosplenomegaly, normal bowel sounds, no guarding or rigidity. SPINE: No scoliosis or deformity SKIN: No rashes CENTRAL NERVOUS SYSTEM: No focal deficits, tone is normal in all 4 extremities. EXTREMITIES: Bilateral inguinal hernias, right greater than left. There is no peripheral edema. No clubbing, no cyanosis. Peripheral pulses are intact. - Labs CBC & Chem 7: 12/08/22 05:54 12/08/22 05:54 Labs: Abnormal Lab Results - Last 24 Hours (Table) 12/07/22 12/08/22 12/08/22 Range/Units 16:01 05:54 05:54 WBC 11.98 H (4.50-10.00) X 10*3/uL RBC 3.09 L (4.10-5.60) X 10*6/uL Hgb 9.5 L (12.0-17.0) d/dL Hct 30.1 L (37.2-50.0) % MCV 97.4 H (80.0-97.0) FL MCHC 31.6 L (32.0-37.0) d/dL MPV 12.3 H (9.5-12.2) FL Neutrophils # 11.17 H (1.80-7.70) X 10*3/uL Lymphocytes # 0.46 L (0.90-5.00) X 10*3/uL Eosinophils # 0 L (0.04-0.35) X 10*3/uL BUN 50.5 H (9.0-27.0) mg/dL Creatinine 2.1 H (0.6-1.5) mg/dL Est GFR (CKD-EPI) 32 L (>=60) BUN/Creatinine Ratio 24.05 H (12.00-20.00) Ratio Glucose 157 H (70-110) mg/dL Calcium 8.4 L (8.7-10.3) mg/dL Procalcitonin 1.29 H (0.02-0.09) ng/mL Microbiology - Last 24 Hours (Table) 12/06/22 19:45 Blood Culture - Preliminary Blood 12/06/22 19:30 Blood Culture - Preliminary Blood Assessment and Plan Assessment: Abdominal pain secondary to incarcerated inguinal hernias, right greater than l eft Acute exacerbation of chronic obstructive pulmonary disease. FEV1 value 0.53 L, 20% of predicted History of greater than 50 years smoking, quit March 2022 Acute kidney injury, diuretics have been held History of previous heavy alcohol use History of neurogenic bladder History of thoracic aortic aneurysm/aortic valve repair at [facility] May 2018 Hypertension Hyperlipidemia History of depression Plan: The patient was seen and evaluated Labs and medications reviewed Continue bronchodilators, Solu-Medrol Continue Zosyn Working with the incentive spirometer He is cleared for surgery but is moderately to high risk based on his lung function We will continue to follow I have personally seen and examined the patient, performed the documentation and the assessment and plan as written. Number of minutes spent on the visit: 10.
--- NOTE | 2022-12-08 11:57 | P.NPCON ---
History of Present Illness - Reason for Consult acute renal failure, chronic renal failure - History of Present Illness Reason for consultation: Acute kidney injury on chronic kidney disease History of present illness: Patient is a 77-year-old male seen in renal consultation for acute kidney injury on chronic kidney disease. Patient has chronic kidney disease stage IIIB with baseline creatinine near 1.5 from October 2021. Creatinine this admission was 2.21 and is fairly stable at 2.1 this morning. Patient came to the hospital due to bloody bowel movement. Patient states he had one episode of diarrhea and also noticed blood in the stool. He was subsequently transferred from another facility over here for further workup. He is also noted to have hernias and is scheduled to undergo surgery tomorrow. Blood pressure was as low as 95/50 this admission and was 147/62 this morning. Patient has a Guzman catheter. Nonoliguric. Patient does take spironolactone as well as Lasix outpatient. Both are currently held. Echocardiogram showed diastolic CHF. Patient denies regular use of nonsteroidals. Denies family history of renal disease. No history of diabetes. Patient does not follow with nephrology outpatient. Vital signs are stable. General: No acute distress. HEENT: Head exam is unremarkable. On nasal cannula. LUNGS: No audible rhonchi or wheezes. HEART: Rate and Rhythm are regular. ABDOMEN: Nontender. EXTREMITITES: No edema. Past Medical History Past Medical History: COPD, Dialysis, GERD/Reflux, Hyperlipidemia, Hypertension Additional Past Medical History / Comment(s): Neuromuscular dysfunction of bladder, iron deficiency anemia, neurogenic bladder, pressure ulcers, dissection of thoracic aorta, no longer doing dialysis, previous ETOH abuse, 2018 History of Any Multi-Drug Resistant Organisms: ESBL Date of last positivie culture/infection: 02/14/19 ESBL-E.coli MDRO Source:: Urine Past Surgical History: No Surgical Hx Reported Additional Past Surgical History / Comment(s): May 2018 thoracic aorta repair at [facility] Past Anesthesia/Blood Transfusion Reactions: No Reported Reaction Past Psychological History: No Psychological Hx Reported Smoking Status: Former smoker Past Alcohol Use History: Abuse, Daily Additional Past Alcohol Use History / Comment(s): quit 1989, began to drink again occasionally 2011 Past Drug Use History: None Reported Additional Drug Use History / Comment(s): pt stopped smoking 03/16/2022 Medications and Allergies Home Medications Medication Instructions Recorded Confirmed Type Metoprolol Succinate (ER) [Toprol 12.5 mg PO DAILY #30 tab.er.24h 09/14/18 12/06/22 Rx XL] Spironolactone [Aldactone] 25 mg PO DAILY #30 tab 09/14/18 12/06/22 Rx Ipratropium/Albuterol Sulfate 1 puff INHALATION RT-TID #1 09/15/18 12/06/22 Rx [Combivent Respimat Inhaler] mist.inhal Sertraline [Zoloft] 25 mg PO DAILY 02/02/19 12/06/22 History Ipratropium-Albuterol Nebulize 3 ml INHALATION RT-QID 10/18/21 12/06/22 History [Duoneb 0.5 mg-3 mg/3 ml Soln] Mirabegron [Myrbetriq] 50 mg PO DAILY 10/18/21 12/06/22 History Ascorbic Acid [Vitamin C] 1,000 mg PO DAILY 12/06/22 12/06/22 History Aspirin EC [Ecotrin Low Dose] 81 mg PO DAILY 12/06/22 12/06/22 History Ferrous Sulfate [Feosol] 325 mg PO DAILY 12/06/22 12/06/22 History Fluticasone Nasal [place] [Flonase 1 - 2 spr EA NOSTRIL DAILY 12/06/22 12/06/22 H istory Nasal [place]] Furosemide [Lasix] 60 mg PO DAILY 12/06/22 12/06/22 History Magnesium Oxide [Magnesium] 500 mg PO DAILY 12/06/22 12/06/22 History Multivit-Mins/Iron/Folic/Lycop 1 tab PO DAILY 12/06/22 12/06/22 History [Centrum Men's Tablet] Pantoprazole [Protonix] 40 mg PO BID 12/06/22 12/06/22 History Tamsulosin [Flomax] 0.4 mg PO HS 12/06/22 12/06/22 History Allergies Allergy/AdvReac Type Severity Reaction Status Date / Time No Known Allergies Allergy Verified 12/06/22 20:05 Physical Exam Vitals: Vital Signs Temp Pulse Pulse Resp BP Pulse Ox 12/08/22 11:40 88 12/08/22 11:29 84 12/08/22 07:38 96 12/08/22 07:27 96 12/08/22 07:26 96 12/08/22 07:15 84 147/62 12/08/22 07:12 96 12/08/22 02:00 99.1 F 89 18 123/63 94 L 12/07/22 20:17 96 12/07/22 20:03 98 12/07/22 19:53 99 12/07/22 19:17 98.7 F 99 18 131/55 92 L 12/07/22 16:34 84 12/07/22 16:20 85 12/07/22 13:07 97.5 F L 84 17 110/56 90 L 12/07/22 12:13 80 12/07/22 12:03 81 Intake and Output 12/07/22 12/08/22 12/08/22 22:59 06:59 14:59 Output Total 1000 1025 Balance -1000 -1025 Output: Urine 1000 1025 Other: Voiding Method Indwelling Catheter Indwelling Catheter Weight 54.431 kg Results - Lab Results Most recent lab results Calcium 8.4 mg/dL (8.7-10.3) L 12/08/22 05:54 12/08/22 05:54 12/08/22 05:54 Assessment and Plan Plan: Assessment: 1. Acute kidney injury secondary to ATN secondary to hypotension. Creatinine 2.1 admission and is stable at 2.1 today. Kidney ultrasound from October 2021 showed atrophic left kidney with no hydronephrosis. 2. Chronic kidney disease stage IIIB with baseline creatinine near 1.5 from October 2021. Etiology is nephrosclerosis. 3. Chronic diastolic CHF. 4. Bilateral abdominal hernias. Scheduled for surgery tomorrow. 5. History of COPD. Plan: Encourage oral intake. Agree with stopping diuretics. Check UA. Check renal ultrasound. Avoid nephrotoxins. Continue to monitor renal function and urine output. Gentle IV hydration. Thank you for the consultation. I will continue to follow the patient with you during his hospital stay.
[2022-12-08 12:08] LABS: Glucose,Whole Blood 298 mg/dL (70-110)
[2022-12-08] MEDS ORDERED: DEXTROSE 50% SYRINGE 50 ML IVP PRN ×2 (12:12)
[2022-12-08] MEDS: INSULIN ASPART (NovoLOG) 100 UNIT/ML VIAL SQ SCH ×3 (12:44→21:03)
[2022-12-08] MEDS: SODIUM CHLORIDE 0.9% 1,000 ML IV SCH (12:46)
--- NOTE | 2022-12-08 13:00 | PN ---
PROGRESS NOTE DATE OF SERVICE: 12/08/2022 SUBJECTIVE: This 77-year-old gentleman was admitted with bilateral inguinal hernia with possible incarceration, is being closely monitored. No chest pain, no palpitation. OBJECTIVE: VITAL SIGNS: Pulse is 84, blood pressure n, respirations 18. CHEST: Clear to auscultation. CARDIOVASCULAR: S1, S2. ABDOMEN: Soft. Bilateral inguinal hernia, mildly tender. LABORATORY DATA: WBC 11.5, rest of the labs are noted. ASSESSMENT: 1. Bilateral inguinal hernia with possible small bowel obstruction. 2. Possible incarcerated inguinal hernia, right more than the left. 3. COPD, moderate to severe. 4. History of EtOH. 5. History of thoracic aortic aneurysm. 6. Multiple medical issues. RECOMMENDATIONS AND DISCUSSION: I recommend to continue current management, continue symptomatic treatment, follow closely with multiple consultants. The patient is currently stable. His medical condition is optimized. The patient is on empiric antibiotics. We will obtain the cultures. Prognosis guarded. Further recommendations to follow. MMODL / IJN: [id number] / SUZANNE
--- NOTE | 2022-12-08 14:02 | US ---
EXAMINATION TYPE: US kidneys/renal and bladder DATE OF EXAM: 12/08/2022 COMPARISON: US 2021, CT [address] 12/06/2022 CLINICAL INDICATION: Male, 77 years old with history of delroy; DELROY EXAM MEASUREMENTS: Right Kidney: 9.2 x 3.8 x 3.5 cm Left Kidney: 9.2 x 5.0 x 5.1 cm Right Kidney: Renal pelvis appears dilated. Hypoechoic area seen upper pole: 0.7 x 0.6 x 0.7 cm. Compatible with small cortical renal cyst Left Kidney: Small left hydronephrosis may be present. *Complex lesion seen upper pole: 2.6 x 2.1 x 2 .6 cm. Bladder: Unable to evaluate, patient has catheter in place. Bilateral Jets seen: No Appearance of minimal free fluid within RUQ near right kidney and liver. IMPRESSION: 1. Complex septated cyst or hypoechoic mass upper pole left kidney. This is better appreciated on the ultrasound the prior CT. Consider MRI of the kidneys or additional evaluation. Neoplasm is not exclu ded on basis of this exam 2. Small left hydronephrosis
[2022-12-08 14:29] LABS: Appearance,Urine Cloudy (Clear); Bacteria,Urine Rare /hpf; Bilirubin,Urine Negative (Negative); Blood,Urine Large (Negative); Color,Urine Light Yellow; Glucose,Urine (UA) Trace (Negative); Ketones,Urine Negative (Negative); Leukocyte Esterase,Urine Small (Negative); Mucus,Urine Rare /hpf; Nitrite,Urine Negative (Negative); PH, Urine 5.5 (5.0-8.0); Protein,Urine 1+ (Negative); RBC,Urine >182 /hpf (0-5); Specific Gravity,Urine 1.017 (1.001-1.035); Squamous Epithelial Cell,Urine 1 /hpf (0-4); Urobilinogen,Urine <2.0 mg/dL (<2.0); WBC,Urine 11 /hpf (0-5)
--- NOTE | 2022-12-08 14:42 | P.PN ---
Subjective Progress Note Date: 12/08/22 CHIEF COMPLAINT: Incarcerated inguinal hernia HISTORY OF PRESENT ILLNESS: Patient lying in bed comfortably. He's been followed for a incarcerated bilateral inguinal hernias. Afebrile. WBC 18.5 down to 11.98 Hgb 9.5 platelets 146 creatinine 2.1. Patient evaluated by both pulmonary and cardiology service for clearance. He is considered a moderate to high risk. They have cleared patient to proceed with surgery. Cardiology noted okay to proceed with surgery once patient's renal function improves. PHYSICAL EXAM: VITAL SIGNS: Reviewed GENERAL: Well-developed in no acute distress. HEENT: No sclera icterus. Extraocular movements grossly intact. Moist buccal mucosa. Head is atraumatic, normocephalic. Hears conversational speech. No nasal drainage. NECK: Supple without lymphadenopathy. CHEST: Non-labored respirations and equal bilateral excursions. CARDIOVASCULAR: Palpable 2+ radial pulses. ABDOMEN: Soft. Nondistended. MUSCULOSKELETAL: No clubbing or cyanosis. NEUROLOGIC: No focal or lateralizing signs. Cranial nerves II through XII grossly intact. PSYCH: Appropriate affect. Alert and oriented to person, place and time. SKIN: Well perfused. Good skin turgor. ASSESSMENT: 1. Bilateral inguinal hernias 2. COPD 3. Acute on chronic renal failure 4. History of thoracic aortic aneurysm 5. History of EtOH use PLAN: -Patient scheduled for robotic bilateral inguinal hernia repair tomorrow, 12/09/[address] Roberts -Nothing by mouth after midnight -CLEAR liquid diet today -Continue supportive care Physician [employer] note has been reviewed by physician. Signing provider agrees with the documented findings, assessment, and plan of care. Objective - Vital Signs Vital signs: Vital Signs Temp 98.5 F 12/08/22 12:03 Pulse 92 12/08/22 12:03 Resp 18 12/08/22 12:03 BP 126/49 12/08/22 12:03 Pulse Ox 95 12/08/22 12:03 FiO2 Intake & Output 12/07/22 12/08/22 12/08/22 18:59 06:59 18:59 Output Total 1000 1025 Balance -1000 -1025 Weight 54.431 kg Output: Urine 1000 1025 Other: Voiding Method Indwelling Catheter Indwelling Catheter Indwelling Catheter - Labs CBC & Chem 7: 12/08/22 05:54 12/08/22 05:54 Labs: Abnormal Lab Results - Last 24 Hours (Table) 12/07/22 12/08/22 12/08/22 Range/Units 16:01 05:54 05:54 WBC 11.98 H (4.50-10.00) X 10*3/uL RBC 3.09 L (4.10-5.60) X 10*6/uL Hgb 9.5 L (12.0-17.0) d/dL Hct 30.1 L (37.2-50.0) % MCV 97.4 H (80.0-97.0) FL MCHC 31.6 L (32.0-37.0) d/dL MPV 12.3 H (9.5-12.2) FL Neutrophils # 11.17 H (1.80-7.70) X 10*3/uL Lymphocytes # 0.46 L (0.90-5.00) X 10*3/uL Eosinophils # 0 L (0.04-0.35) X 10*3/uL BUN 50.5 H (9.0-27.0) mg/dL Creatinine 2.1 H (0.6-1.5) mg/dL Est GFR (CKD-EPI) 32 L (>=60) BUN/Creatinine Ratio 24.05 H (12.00-20.00) Ratio Glucose 157 H (70-110) mg/dL POC Glucose (mg/dL) (70-110) mg/dL Calcium 8.4 L (8.7-10.3) mg/dL Procalcitonin 1.29 H (0.02-0.09) ng/mL 12/08/22 Range/Units 12:07 WBC (4.50-10.00) X 10*3/uL RBC (4.10-5.60) X 10*6/uL Hgb (12.0-17.0) d/dL Hct (37.2-50.0) % MCV (80.0-97.0) FL MCHC (32.0-37.0) d/dL MPV (9.5-12.2) FL Neutrophils # (1.80-7.70) X 10*3/uL Lymphocytes # (0.90-5.00) X 10*3/uL Eosinophils # (0.04-0.35) X 10*3/uL BUN (9.0-27.0) mg/dL Creatinine (0.6-1.5) mg/dL Est GFR (CKD-EPI) (>=60) BUN/Creatinine Ratio (12.00-20.00) Ratio Glucose (70-110) mg/dL POC Glucose (mg/dL) 298 H (70-110) mg/dL Calcium (8.7-10.3) mg/dL Procalcitonin (0.02-0.09) ng/mL Microbiology - Last 24 Hours (Table) 12/06/22 19:45 Blood Culture - Preliminary Blood 12/06/22 19:30 Blood Culture - Preliminary Blood
[2022-12-08 18:05] LABS: Glucose,Whole Blood 168 mg/dL (70-110)
[2022-12-08] MEDS ORDERED: LIDOCAINE 1% (10MG/ML) FOR IV START INTRADERMA PRN (18:34)
[2022-12-08 19:59] LABS: Glucose,Whole Blood 229 mg/dL (70-110)
[2022-12-08] MEDS ORDERED: LEVOFLOXACIN 750MG-D5W PMX 750 MG in DEXTROSE/WATER 1 150ML.BAG IVPB SCH (21:00)
[2022-12-08] MEDS: TAMSULOSIN 0.4 MG CAP.ER.24H PO SCH (21:02)
[2022-12-09] MEDS: LACTATED RINGERS 1,000 ML IV SCH ×2 (05:29→22:48)
[2022-12-09] MEDS: methylPREDNISolone SOD SUCCI 125 MG/2 ML VIAL IV SCH ×4 (05:30→23:19)
[2022-12-09] MEDS ORDERED: fentaNYL (PF) 50 MCG/ML 2 ML AMP IV PRN (07:00)
[2022-12-09] MEDS ORDERED: ONDANSETRON 4 MG/2 ML VIAL IVP PRN (07:00)
[2022-12-09 07:15] LABS: Glucose,Whole Blood 141 mg/dL (70-110)
[2022-12-09] MEDS: BUDESONIDE 1 MG/2 ML NEBU INHALATION SCH ×2 (07:32→20:52)
[2022-12-09] MEDS: IPRATROPIUM-ALBUTEROL 3 ML NEB INHALATION SCH ×4 (07:32→20:52)
[2022-12-09] MEDS: FORMOTEROL FUMARATE 20 MCG/2 ML NEBU INHALATION SCH ×2 (07:32→20:52)
[2022-12-09 08:55] LABS: Basophils # (A) 0.01 X 10*3/uL (0.00-0.10); Basophils % (A) 0.1 %; Eosinophils # (A) 0 X 10*3/uL (0.04-0.35); Eosinophils % (A) 0 %; HCT 32.4 % (37.2-50.0); HGB 10.2 d/dL (12.0-17.0); Lymphocytes % (A) 3.5 %; MCH 30.2 pg (27.0-32.0); MCHC 31.5 d/dL (32.0-37.0); MCV 95.9 FL (80.0-97.0); Mean Platelet Volume 11.8 FL (9.5-12.2); Monocytes # (A) 0.44 X 10*3/uL (0.20-1.00); Monocytes % (A) 3.1 %; NRBC Per 100 WBC 0 X 10*3/uL (0.00-0.01); Neutrophils # (A) 13.19 X 10*3/uL (1.80-7.70); Neutrophils % (A) 92.5 %; Platelet Count 160 X 10*3/uL (140-440); RBC 3.38 X 10*6/uL (4.10-5.60); RDW 13.2 % (11.5-14.5); WBC 14.26 X 10*3/uL (4.50-10.00)
[2022-12-09] MEDS: METOPROLOL SUCCINATE (ER) 25 MG TAB.ER.24H PO SCH (09:36)
[2022-12-09] MEDS: INSULIN ASPART (NovoLOG) 100 UNIT/ML VIAL SQ SCH ×4 (09:37→22:47)
[2022-12-09] MEDS: PIPERACILLIN-TAZOBACTAM 3.375 GM in SODIUM CHLORIDE 0.9% 100 ML IVPB SCH ×3 (09:38→23:20)
[2022-12-09] MEDS: NON FORMULARY DRUG (Mirabegron [Myrbetriq] 50 MG Tab.Er.24h) PO SCH (10:01)
[2022-12-09] MEDS: HEPARIN SODIUM,PORCINE 5,000 UNIT/ML 1 ML VIAL SQ SCH ×2 (10:01→22:48)
[2022-12-09] MEDS: THIAMINE 100 MG TAB PO SCH (10:13)
--- NOTE | 2022-12-09 11:18 | P.PN ---
Subjective Patient is seen in follow-up for acute kidney injury on chronic kidney disease. Creatinine 2.1 yesterday. Nonoliguric. Has Guzman catheter. Hemodynamically stable. Receiving IV fluids. Vital signs are stable. General: No acute distress. HEENT: Head exam is unremarkable. LUNGS: No audible rhonchi or wheezes. HEART: Rate and Rhythm are regular. ABDOMEN: Nontender. EXTREMITITES: No edema. Objective - Vital Signs Vital signs: Vital Signs Temp 98.1 F 12/09/22 08:57 Pulse 64 12/09/22 08:57 Resp 18 12/09/22 08:57 BP 132/67 12/09/22 08:57 Pulse Ox 98 12/09/22 08:57 FiO2 Intake & Output 12/08/22 12/09/22 12/09/22 18:59 06:59 18:59 Output Total 1300 1825 Balance -1300 -1825 Output: Urine 1300 1825 Other: Voiding Method Indwelling Catheter Indwelling Catheter - Labs CBC & Chem 7: 12/09/22 05:45 12/08/22 05:54 Labs: Abnormal Lab Results - Last 24 Hours (Table) 12/08/22 12/08/22 12/08/22 Range/Units 05:54 05:54 12:07 WBC 11.98 H (4.50-10.00) X 10*3/uL RBC 3.09 L (4.10-5.60) X 10*6/uL Hgb 9.5 L (12.0-17.0) d/dL Hct 30.1 L (37.2-50.0) % MCV 97.4 H (80.0-97.0) FL MCHC 31.6 L (32.0-37.0) d/dL MPV 12.3 H (9.5-12.2) FL Neutrophils # 11.17 H (1.80-7.70) X 10*3/uL Lymphocytes # 0.46 L (0.90-5.00) X 10*3/uL Eosinophils # 0 L (0.04-0.35) X 10*3/uL BUN 50.5 H (9.0-27.0) mg/dL Creatinine 2.1 H (0.6-1.5) mg/dL Est GFR (CKD-EPI) 32 L (>=60) BUN/Creatinine Ratio 24.05 H (12.00-20.00) Ratio Glucose 157 H (70-110) mg/dL POC Glucose (mg/dL) 298 H (70-110) mg/dL Hemoglobin A1c (<=6.0) % Calcium 8.4 L (8.7-10.3) mg/dL Urine Protein (Negative) Urine Glucose (UA) (Negative) Urine Blood (Negative) Ur Leukocyte Esterase (Negative) Urine RBC (0-5) /hpf Urine WBC (0-5) /hpf Urine Bacteria (None) /hpf Urine Mucus (None) /hpf 12/08/22 12/08/22 12/08/22 Range/Units 14:13 17:10 19:58 WBC (4.50-10.00) X 10*3/uL RBC (4.10-5.60) X 10*6/uL Hgb (12.0-17.0) d/dL Hct (37.2-50.0) % MCV (80.0-97.0) FL MCHC (32.0-37.0) d/dL MPV (9.5-12.2) FL Neutrophils # (1.80-7.70) X 10*3/uL Lymphocytes # (0.90-5.00) X 10*3/uL Eosinophils # (0.04-0.35) X 10*3/uL BUN (9.0-27.0) mg/dL Creatinine (0.6-1.5) mg/dL Est GFR (CKD-EPI) (>=60) BUN/Creatinine Ratio (12.00-20.00) Ratio Glucose (70-110) mg/dL POC Glucose (mg/dL) 168 H 229 H (70-110) mg/dL Hemoglobin A1c (<=6.0) % Calcium (8.7-10.3) mg/dL Urine Protein 1+ H (Negative) Urine Glucose (UA) Trace H (Negative) Urine Blood Large H (Negative) Ur Leukocyte Esterase Small H (Negative) Urine RBC >182 H (0-5) /hpf Urine WBC 11 H (0-5) /hpf Urine Bacteria Rare H (None) /hpf Urine Mucus Rare H (None) /hpf 09/07/23 09/07/23 09/07/23 Range/Units 05:45 05:45 07:13 WBC 14.26 H (4.50-10.00) X 10*3/uL RBC 3.38 L (4.10-5.60) X 10*6/uL Hgb 10.2 L (12.0-17.0) d/dL Hct 32.4 L (37.2-50.0) % MCV (80.0-97.0) FL MCHC 31.5 L (32.0-37.0) d/dL MPV (9.5-12.2) FL Neutrophils # 13.19 H (1.80-7.70) X 10*3/uL Lymphocytes # 0.50 L (0.90-5.00) X 10*3/uL Eosinophils # 0 L (0.04-0.35) X 10*3/uL BUN (9.0-27.0) mg/dL Creatinine (0.6-1.5) mg/dL Est GFR (CKD-EPI) (>=60) BUN/Creatinine Ratio (12.00-20.00) Ratio Glucose (70-110) mg/dL POC Glucose (mg/dL) 141 H (70-110) mg/dL Hemoglobin A1c 6.1 H (<=6.0) % Calcium (8.7-10.3) mg/dL Urine Protein (Negative) Urine Glucose (UA) (Negative) Urine Blood (Negative) Ur Leukocyte Esterase (Negative) Urine RBC (0-5) /hpf Urine WBC (0-5) /hpf Urine Bacteria (None) /hpf Urine Mucus (None) /hpf Microbiology - Last 24 Hours (Table) 12/06/22 19:45 Blood Culture - Preliminary Blood 12/06/22 19:30 Blood Culture - Preliminary Blood Assessment and Plan Plan: Assessment: 1. Acute kidney injury secondary to ATN secondary to hypotension. Creatinine 2.1 admission and is stable at 2.1 yesterday. Kidney ultrasound from October 2021 showed atrophic left kidney with no hydronephrosis. UA with trace protein. Mild left-sided hydronephrosis noted. 2. Chronic kidney disease stage IIIB with baseline creatinine near 1.5 from October 2021. Etiology is nephrosclerosis. 3. Chronic diastolic CHF. 4. Bilateral abdominal hernias. Surgery pending. 5. History of COPD. 6. Mild left hydronephrosis and complex cyst versus mass on left kidney. Consult urology. Plan: Encourage oral intake. Maintain gentle IV hydration. Avoid nephrotoxins. Continue to monitor renal function and urine output.
[2022-12-09 11:26] LABS: BUN/Creat Ratio 18.44 Ratio (12.00-20.00); Blood Urea Nitrogen 33.2 mg/dL (9.0-27.0); Calcium 8.7 mg/dL (8.7-10.3); Carbon Dioxide 18.2 mmol/L (21.6-31.8); Chloride 107 mmol/L (96-109); Glucose 144 mg/dL (70-110); Magnesium 2.7 mg/dL (1.5-2.4); Potassium 4.3 mmol/L (3.5-5.5); Sodium 140 mmol/L (135-145)
[2022-12-09 11:45] LABS: Glucose,Whole Blood 133 mg/dL (70-110)
--- NOTE | 2022-12-09 12:09 | PN ---
PROGRESS NOTE DATE OF SERVICE: 12/09/2022 SUBJECTIVE: This is a 77-year-old gentleman admitted with bilateral inguinal hernia, also had significant pain. The patient also scheduled for surgery today. Multiple consultants are following the patient. The patient is on IV empiric antibiotics also. No chest pain, no palpitation. OBJECTIVE: VITAL SIGNS: Pulse is 64, blood pressure 130/69, respirations 18. CHEST: Clear. CARDIOVASCULAR: S1, S2. ABDOMEN: Soft, bilateral inguinal hernia. No tenderness. LABORATORY DATA: WBC 14.6. Rest of the labs are noted. ASSESSMENT: 1. Bilateral inguinal hernia with possible small bowel obstruction. 2. Possible incarcerated inguinal hernia, right more the left. 3. Right complex kidney cyst, for outpatient followup. 4. Chronic obstructive pulmonary disease, moderate to severe. 5. History of EtOH. 6. History of thoracic aortic aneurysm. 7. Multiple medical issues. RECOMMENDATIONS: Recommend to continue current medical management and optimize medical treatment. Continue the antibiotics. Follow up closely with multiple consultants and Surgery. Outpatient followup regarding the abnormal ultrasound. Overall prognosis guarded. Further recommendations to follow. MMODL / IJN: [id number] /
--- NOTE | 2022-12-09 12:33 | P.PN ---
Subjective Progress Note Date: 12/09/22 This is a 77-year-old male patient with a history of chronic obstructive pulmonary disease, former smoker, daily alcohol use, gastroesophageal reflux disease, hypertension, hyperlipidemia, neuromuscular dysfunction and the bladder,, previous thoracic aortic aneurysm repair for aortic valve repair. He does have a history of bilateral inguinal hernias and was having issues with abdominal pain and was found to have an incarcerated hernia was transferred from [facility] to here for surgical evaluation. He was also having concern is also having complaints of increasing shortness of breath. Chest x-ray revealed no acute pulmonary process. He states he quit smoking in March 2022. He is not on home oxygen. He is on DuoNeb inhalations and Combivent inhaler in the outpatient setting. He is seen today in consultation. He is currently maintaining O2 saturations in the 90s on room air. He's afebrile. Hemodynamically stable. White count 18.5. Hemoglobin 11.0. Platelets 154. Sodium 137. Potassium 4.7. Bicarb 25. BUN 71. Creatinine 2.21. Glucose 130. Influenza screen negative. RSV screen negative. COVID-19 screen negative. The patient is seen today 12/08/2022 in follow-up on the regular medical floor. He is currently sitting up having breakfast. Awake and alert in no acute distress. He is maintaining good O2 saturations in the 90s on room air. His FEV1 value is 0.53 L which is 20% of predicted. Gold stage IV COPD. He is breathing easier today compared to yesterday. He had been initiated on Pulmicort and Perforomist inhalations, DuoNeb inhalations, IV Solu-Medrol. Antibiotics in the form of Zosyn. Heparin for DVT prophylaxis. Currently in the CIWA protocol. No Ativan required. Plan is for surgical intervention regarding incarcerated hernia tomorrow. White count 11.9. Hemoglobin 9.5. Platelets 146. Sodium 142. Potassium 4.7. Bicarb 23. BUN 51. Creatinine 2.1. Glucose 157. Pro-calcitonin was 1.29. The patient is seen today 12/09/2022 in follow-up on the regular medical floor. He is resting in bed. Awake alert no acute distress. Continues to breathe easier each day. Denies any worsening shortness of breath, cough or congestion. 18 in good O2 saturations in the 90s on room air. He's afebrile. Hemodynamically stable. White count 14.2. Hemoglobin 10.2. Platelets 160. Sodium 140. Potassium 4.3. I curb 18. BUN 32. Creatinine 1.8. He is continued on Zosyn. Remains on bronchodilators, steroids. Normal saline at 50 MLS per hour. Plan is for surgical repair of his inguinal hernia today. Objective - Vital Signs Vital signs: Vital Signs Temp 98.1 F 12/09/22 12:24 Pulse 101 H 12/09/22 12:24 Resp 20 12/09/22 12:24 BP 158/71 12/09/22 12:24 Pulse Ox 92 L 12/09/22 12:24 FiO2 Intake & Output 12/08/22 12/09/22 12/09/22 18:59 06:59 18:59 Output Total 1300 1825 Balance -1300 -1825 Output: Urine 1300 1825 Other: Voiding Method Indwelling Catheter Indwelling Catheter Indwelling Catheter - Exam GENERAL EXAM: Alert, 77-year-old male, sitting up in bed, on room air, comfortable in no apparent distress. HEAD: Normocephalic. EYES: Normal reaction of pupils, equal size. NOSE: Clear with pink turbinates. THROAT: Edentulous. No erythema or exudates. NECK: No masses, no JVD. CHEST: No chest wall deformity. LUNGS: Equal air entry with a faint end expiratory wheeze, diminished. CVS: S1 and S2 normal with no audible murmur, regular rhythm. ABDOMEN: No hepatosplenomegaly, normal bowel sounds, no guarding or rigidity. SPINE: No scoliosis or deformity SKIN: No rashes CENTRAL NERVOUS SYSTEM: No focal deficits, tone is normal in all 4 extremities. EXTREMITIES: Bilateral inguinal hernias, right greater than left. There is no peripheral edema. No clubbing, no cyanosis. Peripheral pulses are intact. - Labs CBC & Chem 7: 12/09/22 05:45 12/09/22 05:45 Labs: Abnormal Lab Results - Last 24 Hours (Table) 12/08/22 12/08/22 12/08/22 Range/Units 14:13 17:10 19:58 WBC (4.50-10.00) X 10*3/uL RBC (4.10-5.60) X 10*6/uL Hgb (12.0-17.0) d/dL Hct (37.2-50.0) % MCHC (32.0-37.0) d/dL Neutrophils # (1.80-7.70) X 10*3/uL Lymphocytes # (0.90-5.00) X 10*3/uL Eosinophils # (0.04-0.35) X 10*3/uL Carbon Dioxide (21.6-31.8) mmol/L Anion Gap (4.00-12.00) mmol/L BUN (9.0-27.0) mg/dL Creatinine (0.6-1.5) mg/dL Est GFR (CKD-EPI) (>=60) Glucose (70-110) mg/dL POC Glucose (mg/dL) 168 H 229 H (70-110) mg/dL Hemoglobin A1c (<=6.0) % Magnesium (1.5-2.4) mg/dL Urine Protein 1+ H (Negative) Urine Glucose (UA) Trace H (Negative) Urine Blood Large H (Negative) Ur Leukocyte Esterase Small H (Negative) Urine RBC >182 H (0-5) /hpf Urine WBC 11 H (0-5) /hpf Urine Bacteria Rare H (None) /hpf Urine Mucus Rare H (None) /hpf 12/09/22 12/09/22 12/09/22 Range/Units 05:45 05:45 05:45 WBC 14.26 H (4.50-10.00) X 10*3/uL RBC 3.38 L (4.10-5.60) X 10*6/uL Hgb 10.2 L (12.0-17.0) d/dL Hct 32.4 L (37.2-50.0) % MCHC 31.5 L (32.0-37.0) d/dL Neutrophils # 13.19 H (1.80-7.70) X 10*3/uL Lymphocytes # 0.50 L (0.90-5.00) X 10*3/uL Eosinophils # 0 L (0.04-0.35) X 10*3/uL Carbon Dioxide 18.2 L (21.6-31.8) mmol/L Anion Gap 14.80 H (4.00-12.00) mmol/L BUN 33.2 H (9.0-27.0) mg/dL Creatinine 1.8 H (0.6-1.5) mg/dL Est GFR (CKD-EPI) 39 L (>=60) Glucose 144 H (70-110) mg/dL POC Glucose (mg/dL) (70-110) mg/dL Hemoglobin A1c 6.1 H (<=6.0) % Magnesium 2.7 H (1.5-2.4) mg/dL Urine Protein (Negative) Urine Glucose (UA) (Negative) Urine Blood (Negative) Ur Leukocyte Esterase (Negative) Urine RBC (0-5) /hpf Urine WBC (0-5) /hpf Urine Bacteria (None) /hpf Urine Mucus (None) /hpf 12/09/22 12/09/22 Range/Units 07:13 11:43 WBC (4.50-10.00) X 10*3/uL RBC (4.10-5.60) X 10*6/uL Hgb (12.0-17.0) d/dL Hct (37.2-50.0) % MCHC (32.0-37.0) d/dL Neutrophils # (1.80-7.70) X 10*3/uL Lymphocytes # (0.90-5.00) X 10*3/uL Eosinophils # (0.04-0.35) X 10*3/uL Carbon Dioxide (21.6-31.8) mmol/L Anion Gap (4.00-12.00) mmol/L BUN (9.0-27.0) mg/dL Creatinine (0.6-1.5) mg/dL Est GFR (CKD-EPI) (>=60) Glucose (70-110) mg/dL POC Glucose (mg/dL) 141 H 133 H (70-110) mg/dL Hemoglobin A1c (<=6.0) % Magnesium (1.5-2.4) mg/dL Urine Protein (Negative) Urine Glucose (UA) (Negative) Urine Blood (Negative) Ur Leukocyte Esterase (Negative) Urine RBC (0-5) /hpf Urine WBC (0-5) /hpf Urine Bacteria (None) /hpf Urine Mucus (None) /hpf Microbiology - Last 24 Hours (Table) 12/06/22 19:45 Blood Culture - Preliminary Blood 12/06/22 19:30 Blood Culture - Preliminary Blood Assessment and Plan Assessment: Abdominal pain secondary to incarcerated inguinal hernias, right greater than left Acute exacerbation of chronic obstructive pulmonary disease. FEV1 value 0.53 L, 20% of predicted History of greater than 50 years smoking, quit March 2022 Acute kidney injury, diuretics have been held History of previous heavy alcohol use History of neurogenic bladder History of thoracic aortic aneurysm/aortic valve repair at [facility] May 2018 Hypertension Hyperlipidemia History of depression Plan: The patient was seen and evaluated Labs and medications reviewed Continue bronchodilators, Solu-Medrol Continue Zosyn Working with the incentive spirometer Stable and on room air Plan is for surgery today We will continue to follow I have personally seen and examined the patient, performed the documentation and the assessment and plan as written. Number of minutes spent on the visit: 10.
--- NOTE | 2022-12-09 13:38 | CT ---
EXAMINATION TYPE: CT abdomen pelvis wo con DATE OF EXAM: 12/09/2022 COMPARISON: 01/26/2021 INDICATION: pre op hernia repair DLP: 265 mGycm, Automated exposure control for dose reduction was used. CONTRAST: 0 mL of Isovue 300. Study performed without Oral Contrast TECHNIQUE: Axial images were obtained from above the diaphragm to the pubic rami in the axial plane a t 5 mm thick sections. Reconstructed images are reviewed on the computer in the coronal plane. FINDINGS: Limited CT sections are obtained the lung bases. The lung bases are clear. Emphysematous changes ar e present. The inferior aspect of an aortic stent is evident. CT ABDOMEN: Liver: Normal Spleen: Normal Pancreas: Normal Adrenal glands: The adrenal glands are normal. Gallbladder: Normal Kidneys: No masses are evident. No hydronephrosis is present. No cysts are present. No renal stone s are evident. Aorta: Vascular calcification is within the aorta. Eccentric calcification is within the lumen antoinette tible with a chronic dissection, finding appears stable from the 01/26/2021 comparison Inferior vena cava: Normal. CT PELVIS: Large bilateral inguinal hernias are present, larger on the right. These involve loops of colon without evidence of obstruction. There is nonspecific fluid within the distal colon. Focal obstruction is not identified. No dilated s mall bowel loops are evident. Study is without oral contrast. Appendix: Normal as visualized. Urinary bladder: Thickened urinary bladder wall. Urinary bladder is decompressed Guzman catheter. Genitourinary structures: Prostate is prominent Osseous structures: No suspicious lytic or sclerotic lesions. IMPRESSION: 1. Large bilateral inguinal hernias containing nonobstructed loops of colon. 2. Chronic aortic dissection, stable.
[2022-12-09] MEDS: SERTRALINE 25 MG TAB PO SCH (14:25)
[2022-12-09] MEDS: SODIUM BICARBONATE TAB 650 MG TAB PO SCH ×2 (14:26→22:47)
[2022-12-09] MEDS: SODIUM CHLORIDE 0.9% 1,000 ML IV SCH (14:37)
[2022-12-09] MEDS ORDERED: LACTATED RINGERS 1,000 ML IV ONE ×2 (16:24→19:28)
[2022-12-09] MEDS ORDERED: IV FLUID CONTINUATION 100 ML IV ONE (16:25)
[2022-12-09] MEDS ORDERED: IV FLUID CONTINUATION 600 ML IV ONE (16:25)
[2022-12-09 16:33] LABS: Glucose,Whole Blood 135 mg/dL (70-110)
[2022-12-09] MEDS ORDERED: DEXAMETHASONE SOD PHOSPHATE 4 MG/ML 1 ML VIAL IVP ONE (16:53)
[2022-12-09] MEDS ORDERED: ONDANSETRON 4 MG/2 ML VIAL IVP ONE (16:54)
[2022-12-09] MEDS ORDERED: INDOCYANINE GREEN 25 MG VIAL IV ONE (16:54)
[2022-12-09] MEDS ORDERED: PHENYLEPHRINE-0.9% NACL SYG 1,000 MCG/10 ML SYRINGE ONE (16:54)
[2022-12-09] MEDS ORDERED: NEOSTIGMINE 1 MG/ML 10 ML VIAL ONE (16:54)
[2022-12-09] MEDS ORDERED: ceFAZolin 1,000 MG VIAL ONE (16:54)
[2022-12-09] MEDS ORDERED: MIDAZOLAM 2 MG/2 ML VIAL ONE (16:54)
[2022-12-09] MEDS ORDERED: PROPOFOL 10 MG/ML 20 ML VIAL IV ONE (16:54)
[2022-12-09] MEDS ORDERED: SUCCINYLCHOLINE CHLORIDE 200 MG/10 ML VIAL IV ONE (16:54)
[2022-12-09] MEDS ORDERED: GLYCOPYRROLATE 0.2 MG/ML 2 ML VIAL ONE (16:54)
[2022-12-09] MEDS ORDERED: ROCURONIUM 10 MG/ML (5 ML VIAL) IV ONE (16:54)
[2022-12-09] MEDS ORDERED: fentaNYL (PF) 50 MCG/ML 2 ML AMP ONE (16:54)
[2022-12-09] MEDS ORDERED: SODIUM CHLORIDE 0.9% 100 ML BAG ONE (16:54)
[2022-12-09] MEDS ORDERED: SODIUM CHLORIDE 0.9% 50 ML with ceFAZolin 2,000 MG IV ONE ×2 (17:41)
[2022-12-09] MEDS ORDERED: LIDOCAINE 1%-EPI 1:100,000 50 ML VIAL SQ ONE ×2 (17:46)
[2022-12-09] MEDS ORDERED: NALOXONE 0.4 MG/ML 1 ML VIAL IV PRN (20:40)
--- NOTE | 2022-12-09 20:45 | P.OP ---
Date of Procedure: 12/09/22 Description of Procedure: SURGEON: PRIYA NATHAN MD PREOPERATIVE DIAGNOSES: 1. Bowel obstruction due to bilateral inguinal hernias, initial POSTOPERATIVE DIAGNOSES: 1. Initial left inguinal hernia, incarcerated with sigmoid colon bowel obstruction 2. Initial right inguinal hernia, incarcerated with small bowel bowel obstruction 3. Moderate to severe sigmoid diverticulosis OPERATION: 1. Robotic-assisted da Maik Xi laparoscopic reduction repair of initial incarcerated left indirect inguinal hernia with mesh, 10 x [address] 2. Robotic-assisted da Maik Xi laparoscopic reduction repair of initial incarcerated right indirect inguinal hernia with mesh, 10 x [address] ANESTHESIA: General with local anesthetic ESTIMATED BLOOD LOSS: 5 mL. SPECIMENS: 1. Incarcerated left inguinal hernia sac 2. Incarcerated right inguinal hernia sac COMPLICATIONS: None. FINDINGS: 1. Incarcerated left inguinal hernia over 4 x 4 cm, Nyhus IV, incorporating sigmoid colon with partial obstruction 2. Incarcerated right inguinal hernia over 4 x 4 cm, Nyhus IV, incorporating small bowel with ischemia involving ileum 3. Sigmoid colon incarceration reduced without ischemia or infarction from left inguinal hernia 4. Sigmoid diverticulosis moderate to severe INDICATIONS: The patient is a 77-year-old male who presents with history of initial bilateral inguinal hernias with bowel obstruction. Now he presents for definitive surgical intervention. Laparoscopic versus open and robotic approaches were discussed including bilateral approach. Benefits and risks including bleeding, infection, chronic groin pain, sterility were reviewed. Placement of mesh was also described. Informed consent was obtained. DESCRIPTION: In the preoperative area, an abdominal block was placed per anesthesia. The patient was brought to the operating room and initially laid in supine position. The abdomen had been prepped and draped in standard sterile fashion. Ioban draping was also placed. Prior to incision, a timeout protocol was confirmed with surgical team regarding patient's name including procedures to be performed. Initial positioning for the robotic assisted ports were selected 20 cm superior to the target anatomy. A 0 degree 5 mm laparoscopic trocar entry was performed at the left upper quadrant. The abdomen was insufflated to 15 mmHg which he tolerated well. Diagnostic laparoscopy demonstrated no injury to bowel, viscera or mesentery. Incarcerated sigmoid colon was found along the left groin. Along the right groin, another large indirect hernia involving small bowel was also found. Next, along the epigastrium, 8 mm robot trocar was placed. An 8-mm robotic trocar was placed under direct visualization at the right upper quadrant. An 8 mm port was placed at the left upper quadrant. All trocars were positioned between 10-cm apart from each other. The [employer] robot was primed, draped, prepared for docking along upper abdomen of the patient. The patient was positioned 16 steep Trendelenburg position. I then went to the [employer] console. The material assistant was at bedside for exchange of the robot arms and equipment. Attention was brought to the left groin. A very large left inguinal defect was confirmed as the sigmoid colon was reduced from the left groin after direct pressure over the inguinal area was placed by the material assistant. Next, the left groin defect was measured 4 x 4-cm hernia with the sac extending to the scrotum. A large indirect hernia was confirmed, Nyhus type IV. The left inguinal hernia sac was evaginated whereby the peritoneum was scored using Endo scissors with cautery. As the hernia sac extended into the groin, complete resection of the sac was done. The peritoneal sac of the hernia was stripped. The sac was resected and then passed off for further pathological analysis. The size of the hernia defect was 4 cm x 4 cm with intraoperative films obtained. Using a 2-0 VLOC, the peritoneal defect of the left inguinal hernia site was closed using a running suture. The defect was found to be completely closed with complete reduction of the left direct inguinal hernia was confirmed. As an onlay, an 11.[address] mesh by [employer] was cut in half and entered into the abdominal cavity via the 8 mm trocar. The mesh was tacked to the pelvis using 2-0 VLOC 9-inch length sutures. Attention was brought to the right groin. A large right inguinal defect was confirmed as the small intestine was reduced from the right groin. Next, the right groin defect was measured 4 x 3-cm hernia with the sac extending to the scrotum. A large indirect hernia was confirmed, Nyhus type IV. The right inguinal hernia sac was evaginated whereby the peritoneum was scored using Endo scissors with cautery. As the hernia sac extended into the groin, complete resection of the sac was done. The peritoneal sac of the hernia was stripped. The sac was resected and then passed off for further pathological analysis. The size of the hernia defect was 4 cm x 3 cm with intraoperative films obtained. Using a 2-0 VLOC, the peritoneal defect of the right inguinal hernia site was closed using a running suture. The defect was found to be completely closed with complete reduction of the right direct inguinal hernia was confirmed. As an onlay, an 11.[address] mesh by [employer] was cut in half and entered into the abdominal cavity via the 8 mm trocar. The mesh was tacked to the pelvis using 2-0 VLOC 9-inch length sutures. A final endoscopic imaging was obtained. The robot was undocked from the patient's bedside. I then rescrubbed into the case. Insufflation was released from the abdominal cavity and all instruments were removed from the abdominal cavity. Pressure was applied along the left groin. The rest of incisions were reapproximated using 4-0 Monocryl in a running subcuticular fashion. Local anesthetic was placed along the incision including for a bilateral groin block. Incisions were cleansed using dilute hydrogen peroxide. Liquid glue was applied to the skin. At the end of the procedure, the needle, sponge and instrument counts had been verified correct by the surgical rn. The patient had tolerated the procedure well and was taken to the postanesthesia care unit in stable condition. Intraoperative images were reviewed with the patient's family who were pleased with the level of care.
[2022-12-09] MEDS ORDERED: ALBUTEROL NEBULIZED 2.5 MG/3 ML INHALATION ONE (20:50)
[2022-12-09] MEDS ORDERED: hydrALAZINE HCL 20 MG/ML 1 ML VIAL IVP ONE (21:00)
[2022-12-09 22:23] LABS: Glucose,Whole Blood 159 mg/dL (70-110)
[2022-12-09] MEDS: TAMSULOSIN 0.4 MG CAP.ER.24H PO SCH (22:47)
[2022-12-09] MEDS: DOCUSATE 100 MG CAP PO SCH (22:48)
[2022-12-09] MEDS: HYDROmorphone 0.5 MG/0.5 ML SYRINGE IVP PRN (23:01)
[2022-12-10] MEDS: IPRATROPIUM-ALBUTEROL 3 ML NEB INHALATION PRN (00:18)
[2022-12-10] MEDS: methylPREDNISolone SOD SUCCI 125 MG/2 ML VIAL IV SCH ×3 (05:37→17:58)
[2022-12-10] MEDS: SODIUM CHLORIDE 0.9% 1,000 ML IV SCH (05:38)
[2022-12-10 07:07] LABS: Glucose,Whole Blood 122 mg/dL (70-110)
[2022-12-10] MEDS: FORMOTEROL FUMARATE 20 MCG/2 ML NEBU INHALATION SCH ×2 (07:22→18:12)
[2022-12-10] MEDS: IPRATROPIUM-ALBUTEROL 3 ML NEB INHALATION SCH ×4 (07:22→18:12)
[2022-12-10] MEDS: BUDESONIDE 1 MG/2 ML NEBU INHALATION SCH ×2 (07:23→18:12)
[2022-12-10 07:26] LABS: Basophils % (A) 0 %; Eosinophils # (A) 0.1 k/uL (0-0.7); Eosinophils % (A) 0 %; HCT 31.1 % (39.0-53.0); HGB 10.4 gm/dL (13.0-17.5); Lymphocytes # (A) 0.4 k/uL (1.0-4.8); Lymphocytes % (A) 3 %; MCH 32.5 pg (25.0-35.0); MCHC 33.5 g/dL (31.0-37.0); Mean Platelet Volume 9.4; Monocytes # (A) 0.6 k/uL (0-1.0); Monocytes % (A) 5 %; Neutrophils # (A) 11.8 k/uL (1.3-7.7); Neutrophils % (A) 92 %; Platelet Count 156 k/uL (150-450); RBC 3.21 m/uL (4.30-5.90); RDW 13.2 % (11.5-15.5); WBC 12.9 k/uL (3.8-10.6)
[2022-12-10] MEDS: INSULIN ASPART (NovoLOG) 100 UNIT/ML VIAL SQ SCH ×4 (07:59→20:14)
[2022-12-10 11:02] LABS: BUN/Creat Ratio 18.78 Ratio (12.00-20.00); Blood Urea Nitrogen 33.8 mg/dL (9.0-27.0); Calcium 8.3 mg/dL (8.7-10.3); Carbon Dioxide 22.6 mmol/L (21.6-31.8); Chloride 113 mmol/L (96-109); Glucose 116 mg/dL (70-110); Magnesium 2.5 mg/dL (1.5-2.4); Potassium 4.4 mmol/L (3.5-5.5); Sodium 146 mmol/L (135-145)
--- NOTE | 2022-12-10 11:10 | P.PN ---
Subjective Patient is seen in follow-up for acute kidney injury on chronic kidney disease. Renal function improved. Creatinine 1.8. Nonoliguric. Has Guzman catheter. Hemodynamically stable. Receiving IV fluids. Oral intake is good. Vital signs are stable. General: No acute distress. HEENT: Head exam is unremarkable. LUNGS: No audible rhonchi or wheezes. HEART: Rate and Rhythm are regular. ABDOMEN: Nontender. EXTREMITITES: No edema. Objective - Vital Signs Vital signs: Vital Signs Temp 98.4 F 12/10/22 08:13 Pulse 94 12/10/22 08:13 Resp 16 12/10/22 08:13 BP 144/66 12/10/22 08:13 Pulse Ox 95 12/10/22 08:13 FiO2 Intake & Output 12/09/22 12/10/22 12/10/22 18:59 06:59 18:59 Intake Total 1250 450 Output Total 700 1155 Balance 550 -705 Weight 54.431 kg Intake: IV 1250 450 Oral 0 Output: Urine 700 1150 Estimated Blood Loss 5 Other: Voiding Method Indwelling Catheter Indwelling Catheter Indwelling Catheter - Labs CBC & Chem 7: 12/10/22 07:03 12/10/22 07:03 Labs: Abnormal Lab Results - Last 24 Hours (Table) 12/09/22 12/09/22 12/09/22 Range/Units 05:45 11:43 16:20 WBC (3.8-10.6) k/uL RBC (4.30-5.90) m/uL Hgb (13.0-17.5) gm/dL Hct (39.0-53.0) % Neutrophils # (1.3-7.7) k/uL Lymphocytes # (1.0-4.8) k/uL Sodium (135-145) mmol/L Chloride (96-109) mmol/L Carbon Dioxide 18.2 L (21.6-31.8) mmol/L Anion Gap 14.80 H (4.00-12.00) mmol/L BUN 33.2 H (9.0-27.0) mg/dL Creatinine 1.8 H (0.6-1.5) mg/dL Est GFR (CKD-EPI) 39 L (>=60) Glucose 144 H (70-110) mg/dL POC Glucose (mg/dL) 133 H 135 H (70-110) mg/dL Calcium (8.7-10.3) mg/dL Magnesium 2.7 H (1.5-2.4) mg/dL 12/09/22 12/10/22 12/10/22 Range/Units 22:22 07:03 07:03 WBC 12.9 H (3.8-10.6) k/uL RBC 3.21 L (4.30-5.90) m/uL Hgb 10.4 L (13.0-17.5) gm/dL Hct 31.1 L (39.0-53.0) % Neutrophils # 11.8 H (1.3-7.7) k/uL Lymphocytes # 0.4 L (1.0-4.8) k/uL Sodium 146 H (135-145) mmol/L Chloride 113 H (96-109) mmol/L Carbon Dioxide (21.6-31.8) mmol/L Anion Gap (4.00-12.00) mmol/L BUN 33.8 H (9.0-27.0) mg/dL Creatinine 1.8 H (0.6-1.5) mg/dL Est GFR (CKD-EPI) 39 L (>=60) Glucose 116 H (70-110) mg/dL POC Glucose (mg/dL) 159 H (70-110) mg/dL Calcium 8.3 L (8.7-10.3) mg/dL Magnesium 2.5 H (1.5-2.4) mg/dL 12/10/22 Range/Units 07:05 WBC (3.8-10.6) k/uL RBC (4.30-5.90) m/uL Hgb (13.0-17.5) gm/dL Hct (39.0-53.0) % Neutrophils # (1.3-7.7) k/uL Lymphocytes # (1.0-4.8) k/uL Sodium (135-145) mmol/L Chloride (96-109) mmol/L Carbon Dioxide (21.6-31.8) mmol/L Anion Gap (4.00-12.00) mmol/L BUN (9.0-27.0) mg/dL Creatinine (0.6-1.5) mg/dL Est GFR (CKD-EPI) (>=60) Glucose (70-110) mg/dL POC Glucose (mg/dL) 122 H (70-110) mg/dL Calcium (8.7-10.3) mg/dL Magnesium (1.5-2.4) mg/dL Microbiology - Last 24 Hours (Table) 12/06/22 19:45 Blood Culture - Preliminary Blood 12/06/22 19:30 Blood Culture - Preliminary Blood Assessment and Plan Plan: Assessment: 1. Acute kidney injury secondary to ATN secondary to hypotension. Creatinine 2.1 admission and is 1.8 today. Kidney ultrasound from October 2021 showed atrophic left kidney with no hydronephrosis. UA with trace protein. Mild left- sided hydronephrosis noted. 2. Chronic kidney disease stage IIIB with baseline creatinine near 1.5 from October 2021. Etiology is nephrosclerosis. 3. Chronic diastolic CHF. 4. Bilateral abdominal hernias. Status post surgical repair 12/09/2022. 5. History of COPD. 6. Mild left hydronephrosis and complex cyst versus mass on left kidney. Urology consulted. 7. Mild hypernatremia from lack of full water intake. 8. Metabolic acidosis secondary to chronic kidney disease and IV fluids. On oral bicarb. Better. Plan: Encouraged oral intake. Change IV fluids to D5W at 50 mL an hour. Avoid nephrotoxins. Continue to monitor renal function and urine output. Repeat labs in the morning.
[2022-12-10] MEDS: PIPERACILLIN-TAZOBACTAM 3.375 GM in SODIUM CHLORIDE 0.9% 100 ML IVPB SCH ×2 (11:26→16:44)
[2022-12-10] MEDS: HEPARIN SODIUM,PORCINE 5,000 UNIT/ML 1 ML VIAL SQ SCH ×2 (11:27→20:15)
[2022-12-10] MEDS: THIAMINE 100 MG TAB PO SCH (11:29)
[2022-12-10] MEDS: METOPROLOL SUCCINATE (ER) 25 MG TAB.ER.24H PO SCH (11:29)
[2022-12-10] MEDS: SERTRALINE 25 MG TAB PO SCH (11:35)
[2022-12-10] MEDS: DOCUSATE 100 MG CAP PO SCH ×2 (11:35→20:14)
[2022-12-10] MEDS: SODIUM BICARBONATE TAB 650 MG TAB PO SCH ×2 (11:35→20:14)
[2022-12-10] MEDS: NON FORMULARY DRUG (Mirabegron [Myrbetriq] 50 MG Tab.Er.24h) PO SCH (11:38)
--- NOTE | 2022-12-10 11:52 | PN ---
PROGRESS NOTE DATE OF SERVICE: 12/10/2022 SUBJECTIVE: This is a 77-year-old gentleman, who was admitted with bilateral inguinal hernia, had surgery yesterday. The patient underwent laparoscopic reduction and repair of the incarcerated left inguinal hernia and right direct inguinal hernia with mesh. No chest pain, no palpitation. The patient has chronic aortic dissection. OBJECTIVE: VITAL SIGNS: Pulse is 94, blood pressure 140/62, respirations 16. CHEST: Clear to auscultation. CARDIOVASCULAR: S1, S2. ABDOMEN: Soft. Scrotal edema present. LABORATORY DATA: Reviewed. ASSESSMENT: 1. Bilateral inguinal hernia with possible incarceration as well as small bowel obstruction, status post laparoscopic repair. 2. Right complex kidney cyst, for outpatient followup. 3. Aortic dissection, stable. 4. Chronic obstructive pulmonary disease, moderate to severe. 5. History of EtOH. 6. History of thoracic aortic aneurysm. 7. Multiple medical issues. RECOMMENDATIONS: Recommend to continue current medical management, continue symptomatic treatment. Repeat labs. Closely follow with Surgery. Continue the empiric antibiotics. Closely follow with Infectious Disease. Prognosis guarded. Further recommendations to follow. MMODL / IJN: [id number] /
--- NOTE | 2022-12-10 12:12 | P.PN ---
Subjective Progress Note Date: 12/10/22 This is a 77-year-old male patient with a history of chronic obstructive pulmonary disease, former smoker, daily alcohol use, gastroesophageal reflux disease, hypertension, hyperlipidemia, neuromuscular dysfunction and the bladder,, previous thoracic aortic aneurysm repair for aortic valve repair. He does have a history of bilateral inguinal hernias and was having issues with abdominal pain and was found to have an incarcerated hernia was transferred from [facility] to here for surgical evaluation. He was also having concern is also having complaints of increasing shortness of breath. Chest x-ray revealed no acute pulmonary process. He states he quit smoking in March 2022. He is not on home oxygen. He is on DuoNeb inhalations and Combivent inhaler in the outpatient setting. He is seen today in consultation. He is currently maintaining O2 saturations in the 90s on room air. He's afebrile. Hemodynamically stable. White count 18.5. Hemoglobin 11.0. Platelets 154. Sodium 137. Potassium 4.7. Bicarb 25. BUN 71. Creatinine 2.21. Glucose 130. Influenza screen negative. RSV screen negative. COVID-19 screen negative. The patient is seen today 12/08/2022 in follow-up on the regular medical floor. He is currently sitting up having breakfast. Awake and alert in no acute distress. He is maintaining good O2 saturations in the 90s on room air. His FEV1 value is 0.53 L which is 20% of predicted. Gold stage IV COPD. He is breathing easier today compared to yesterday. He had been initiated on Pulmicort and Perforomist inhalations, DuoNeb inhalations, IV Solu-Medrol. Antibiotics in the form of Zosyn. Heparin for DVT prophylaxis. Currently in the CIWA protocol. No Ativan required. Plan is for surgical intervention regarding incarcerated hernia tomorrow. White count 11.9. Hemoglobin 9.5. Platelets 146. Sodium 142. Potassium 4.7. Bicarb 23. BUN 51. Creatinine 2.1. Glucose 157. Pro-calcitonin was 1.29. The patient is seen today 12/09/2022 in follow-up on the regular medical floor. He is resting in bed. Awake alert no acute distress. Continues to breathe easier each day. Denies any worsening shortness of breath, cough or congestion. 18 in good O2 saturations in the 90s on room air. He's afebrile. Hemodynamically stable. White count 14.2. Hemoglobin 10.2. Platelets 160. Sodium 140. Potassium 4.3. I curb 18. BUN 32. Creatinine 1.8. He is continued on Zosyn. Remains on bronchodilators, steroids. Normal saline at 50 MLS per hour. Plan is for surgical repair of his inguinal hernia today. The patient is seen today 12/10/2022 in follow-up on the regular medical floor. He is resting comfortably in bed. Awake and alert in no acute distress. Maintaining O2 saturations in the 90s on 2 L/m per nasal cannula. D5W at 50 MLS per hour. He did undergo bilateral hernia repair. Postoperative day #1. Tolerated procedure well. He is continued on DuoNeb inhalations, Pulmicort and Perforomist inhalations, IV Solu-Medrol. Antibiotics in the form of Zosyn. Heparin for DVT prophylaxis. White count 12.9. Hemoglobin 10.4. Platelets 156. Sodium 146. Potassium 4.4. Bicarb 23. BUN 34. Creatinine 1.8. Glucose 116. Objective - Vital Signs Vital signs: Vital Signs Temp 98.4 F 12/10/22 08:13 Pulse 72 12/10/22 11:35 Resp 16 12/10/22 08:13 BP 144/66 12/10/22 08:13 Pulse Ox 95 12/10/22 08:13 FiO2 Intake & Output 12/09/22 12/10/22 12/10/22 18:59 06:59 18:59 Intake Total 1250 450 Output Total 700 1155 Balance 550 -705 Weight 54.431 kg 54.431 kg Intake: IV 1250 450 Oral 0 Output: Urine 700 1150 Estimated Blood Loss 5 Other: Voiding Method Indwelling Catheter Indwelling Catheter Indwelling Catheter - Exam GENERAL EXAM: Alert, very pleasant 77-year-old male, sitting up in bed, on 2 L nasal cannula, comfortable in no apparent distress. HEAD: Normocephalic. EYES: Normal reaction of pupils, equal size. NOSE: Clear with pink turbinates. THROAT: Edentulous. No erythema or exudates. NECK: No masses, no JVD. CHEST: No chest wall deformity. LUNGS: Equal air entry with a faint end expiratory wheeze, diminished. CVS: S1 and S2 normal with no audible murmur, regular rhythm. ABDOMEN: No hepatosplenomegaly, normal bowel sounds, no guarding or rigidity. SPINE: No scoliosis or deformity SKIN: No rashes CENTRAL NERVOUS SYSTEM: No focal deficits, tone is normal in all 4 extremities. EXTREMITIES: Bilateral inguinal surgical sites clean and dry. There is no peripheral edema. No clubbing, no cyanosis. Peripheral pulses are intact. - Labs CBC & Chem 7: 12/10/22 07:03 12/10/22 07:03 Labs: Abnormal Lab Results - Last 24 Hours (Table) 12/09/22 12/09/22 12/10/22 Range/Units 16:20 22:22 07:03 WBC (3.8-10.6) k/uL RBC (4.30-5.90) m/uL Hgb (13.0-17.5) gm/dL Hct (39.0-53.0) % Neutrophils # (1.3-7.7) k/uL Lymphocytes # (1.0-4.8) k/uL Sodium 146 H (135-145) mmol/L Chloride 113 H (96-109) mmol/L BUN 33.8 H (9.0-27.0) mg/dL Creatinine 1.8 H (0.6-1.5) mg/dL Est GFR (CKD-EPI) 39 L (>=60) Glucose 116 H (70-110) mg/dL POC Glucose (mg/dL) 135 H 159 H (70-110) mg/dL Calcium 8.3 L (8.7-10.3) mg/dL Magnesium 2.5 H (1.5-2.4) mg/dL 12/10/22 12/10/22 Range/Units 07:03 07:05 WBC 12.9 H (3.8-10.6) k/uL RBC 3.21 L (4.30-5.90) m/uL Hgb 10.4 L (13.0-17.5) gm/dL Hct 31.1 L (39.0-53.0) % Neutrophils # 11.8 H (1.3-7.7) k/uL Lymphocytes # 0.4 L (1.0-4.8) k/uL Sodium (135-145) mmol/L Chloride (96-109) mmol/L BUN (9.0-27.0) mg/dL Creatinine (0.6-1.5) mg/dL Est GFR (CKD-EPI) (>=60) Glucose (70-110) mg/dL POC Glucose (mg/dL) 122 H (70-110) mg/dL Calcium (8.7-10.3) mg/dL Magnesium (1.5-2.4) mg/dL Microbiology - Last 24 Hours (Table) 12/06/22 19:45 Blood Culture - Preliminary Blood 12/06/22 19:30 Blood Culture - Preliminary Blood Assessment and Plan Assessment: Abdominal pain secondary to incarcerated inguinal hernias, right greater than left. Status post bilateral hernia repairs. Postoperative day #1. Acute exacerbation of chronic obstructive pulmonary disease. FEV1 value 0.53 L, 20% of predicted History of greater than 50 years smoking, quit March 2022 Acute kidney injury, diuretics have been held History of previous heavy alcohol use History of neurogenic bladder History of thoracic aortic aneurysm/aortic valve repair at [facility] May 2018 Hypertension Hyperlipidemia History of depression Plan: The patient was seen and evaluated Labs and medications reviewed Continue bronchodilators, Solu-Medrol Continue Zosyn Working with the incentive spirometer Titrate down the FiO2 as tolerated Increase his activity as tolerated We will continue to follow I have personally seen and examined the patient, performed the documentation and the assessment and plan as written. Number of minutes spent on the visit: 10.
[2022-12-10 12:32] LABS: Glucose,Whole Blood 223 mg/dL (70-110)
--- NOTE | 2022-12-10 13:15 | P.PN ---
Subjective Progress Note Date: 12/10/22 CHIEF COMPLAINT: Incarcerated inguinal hernia HISTORY OF PRESENT ILLNESS: Patient is postop day #1 status post Robotic- assisted reduction repair of incarcerated left and right inguinal hernias with mesh. Patient is sitting up in bedside chair. Reports that he feels much better. Pain controlled. Tolerating liquids. Afebrile. WBC 14.26 down to 12.9 hemoglobin 10.4 platelets 156 creatinine 1.8 PHYSICAL EXAM: VITAL SIGNS: Reviewed GENERAL: Well-developed in no acute distress. HEENT: No sclera icterus. Extraocular movements grossly intact. Moist buccal mucosa. Head is atraumatic, normocephalic. Hears conversational speech. No nasal drainage. NECK: Supple without lymphadenopathy. CHEST: Non-labored respirations and equal bilateral excursions. CARDIOVASCULAR: Palpable 2+ radial pulses. ABDOMEN: Soft. Nondistended. MUSCULOSKELETAL: No clubbing or cyanosis. NEUROLOGIC: No focal or lateralizing signs. Cranial nerves II through XII grossly intact. PSYCH: Appropriate affect. Alert and oriented to person, place and time. SKIN: Well perfused. Good skin turgor. ASSESSMENT: 1. Initial left inguinal hernia, incarcerated with sigmoid colon bowel obstruction 2. Initial right inguinal hernia, incarcerated with small bowel bowel obstruction 3. Moderate to severe sigmoid diverticulosis 4. COPD 5. Acute on chronic renal failure 6. History of thoracic aortic aneurysm 7. History of EtOH use PLAN: -Advance diet to low fiber -Continue supportive care -Continue pain management -Encouraged patient to increase activity level -DVT prophylaxis subcu heparin Physician Composing Machine Operator note has been reviewed by physician. Signing provider agrees with the documented findings, assessment, and plan of care. Objective - Vital Signs Vital signs: Vital Signs Temp 98.6 F 12/10/22 12:18 Pulse 71 12/10/22 12:18 Resp 20 12/10/22 12:18 BP 130/57 12/10/22 12:18 Pulse Ox 100 12/10/22 12:18 FiO2 Intake & Output 12/09/22 12/10/22 12/10/22 18:59 06:59 18:59 Intake Total 1250 450 Output Total 700 1155 Balance 550 -705 Weight 54.431 kg 54.431 kg Intake: IV 1250 450 Oral 0 Output: Urine 700 1150 Estimated Blood Loss 5 Other: Voiding Method Indwelling Catheter Indwelling Catheter Indwelling Catheter - Labs CBC & Chem 7: 12/10/22 07:03 12/10/22 07:03 Labs: Abnormal Lab Results - Last 24 Hours (Table) 12/09/22 12/09/22 12/10/22 Range/Units 16:20 22:22 07:03 WBC (3.8-10.6) k/uL RBC (4.30-5.90) m/uL Hgb (13.0-17.5) gm/dL Hct (39.0-53.0) % Neutrophils # (1.3-7.7) k/uL Lymphocytes # (1.0-4.8) k/uL Sodium 146 H (135-145) mmol/L Chloride 113 H (96-109) mmol/L BUN 33.8 H (9.0-27.0) mg/dL Creatinine 1.8 H (0.6-1.5) mg/dL Est GFR (CKD-EPI) 39 L (>=60) Glucose 116 H (70-110) mg/dL POC Glucose (mg/dL) 135 H 159 H (70-110) mg/dL Calcium 8.3 L (8.7-10.3) mg/dL Magnesium 2.5 H (1.5-2.4) mg/dL 12/10/22 12/10/22 12/10/22 Range/Units 07:03 07:05 12:31 WBC 12.9 H (3.8-10.6) k/uL RBC 3.21 L (4.30-5.90) m/uL Hgb 10.4 L (13.0-17.5) gm/dL Hct 31.1 L (39.0-53.0) % Neutrophils # 11.8 H (1.3-7.7) k/uL Lymphocytes # 0.4 L (1.0-4.8) k/uL Sodium (135-145) mmol/L Chloride (96-109) mmol/L BUN (9.0-27.0) mg/dL Creatinine (0.6-1.5) mg/dL Est GFR (CKD-EPI) (>=60) Glucose (70-110) mg/dL POC Glucose (mg/dL) 122 H 223 H (70-110) mg/dL Calcium (8.7-10.3) mg/dL Magnesium (1.5-2.4) mg/dL Microbiology - Last 24 Hours (Table) 12/06/22 19:45 Blood Culture - Preliminary Blood 12/06/22 19:30 Blood Culture - Preliminary Blood
[2022-12-10] MEDS: DEXTROSE 5% IN WATER 1,000 ML IV SCH (13:29)
--- NOTE | 2022-12-10 15:35 | P.GSCN ---
History of Present Illness Consult date: 12/10/22 Reason for Consult: Hydronephrosis, renal cyst Requesting physician: Cruz Miles History of present illness: The patient is a 77-year-old white male well known to me. He underwent a Urolift procedure for urinary retention in 2019. He has since been verified to be emptying his bladder. He takes Myrbetriq for overactive bladder symptoms. He has large bilateral inguinal hernias and underwent robotic-assisted lap aroscopic repair of these yesterday. renal ultrasound suggested the presence of left hydronephrosis and a left renal lesion. I am consulted for thiis reason. Review of Systems - Genitourinary Reports urinary frequency Past Medical History Past Medical History: COPD, Dialysis, GERD/Reflux, Hyperlipidemia, Hypertension Additional Past Medical History / Comment(s): Neuromuscular dysfunction of bladder, iron deficiency anemia, neurogenic bladder, pressure ulcers, dissection of thoracic aorta, no longer doing dialysis, previous ETOH abuse, 2018 History of Any Multi-Drug Resistant Organisms: ESBL Year Discovered:: 02/14/19 ESBL-E.coli MDRO Source:: Urine Past Surgical History: No Surgical Hx Reported Additional Past Surgical History / Comment(s): May 2018 thoracic aorta repair at [facility] Past Anesthesia/Blood Transfusion Reactions: No Reported Reaction Past Psychological History: No Psychological Hx Reported Smoking Status: Former smoker Past Alcohol Use History: Abuse, Daily Additional Past Alcohol Use History / Comment(s): quit 1989, began to drink again occasionally 2011 Past Drug Use History: None Reported Additional Drug Use History / Comment(s): pt stopped smoking 03/16/2022 Medications and Allergies Home Medications Medication Instructions Recorded Confirmed Type Metoprolol Succinate (ER) [Toprol 12.5 mg PO DAILY #30 tab.er.24h 09/14/18 12/06/22 Rx XL] Spironolactone [Aldactone] 25 mg PO DAILY #30 tab 09/14/18 12/06/22 Rx Ipratropium/Albuterol Sulfate 1 puff INHALATION RT-TID #1 09/15/18 12/06/22 Rx [Combivent Respimat Inhaler] mist.inhal Sertraline [Zoloft] 25 mg PO DAILY 02/02/19 12/06/22 History Ipratropium-Albuterol Nebulize 3 ml INHALATION RT-QID 10/18/21 12/06/22 History [Duoneb 0.5 mg-3 mg/3 ml Soln] Mirabegron [Myrbetriq] 50 mg PO DAILY 10/18/21 12/06/22 History Ascorbic Acid [Vitamin C] 1,000 mg PO DAILY 12/06/22 12/06/22 History Aspirin EC [Ecotrin Low Dose] 81 mg PO DAILY 12/06/22 12/06/22 History Ferrous Sulfate [Feosol] 325 mg PO DAILY 12/06/22 12/06/22 History Fluticasone Nasal [place] [Flonase 1 - 2 spr EA NOSTRIL DAILY 12/06/22 12/06/22 History Nasal [place]] Furosemide [Lasix] 60 mg PO DAILY 12/06/22 12/06/22 History Magnesium Oxide [Magnesium] 500 mg PO DAILY 12/06/22 12/06/22 History Multivit-Mins/Iron/Folic/Lycop 1 tab PO DAILY 12/06/22 12/06/22 History [Centrum Men's Tablet] Pantoprazole [Protonix] 40 mg PO BID 12/06/22 12/06/22 History Tamsulosin [Flomax] 0.4 mg PO HS 12/06/22 12/06/22 History Allergies Allergy/AdvReac Type Severity Reaction Status Date / Time No Known Allergies Allergy Verified 12/06/22 20:05 Surgical - Exam Vital Signs Temp Pulse Resp BP Pulse Ox 100.5 F H 89 20 99/60 96 12/06/22 18:00 12/06/22 18:00 12/06/22 18:00 12/06/22 18:00 12/06/22 18:00 - General well developed, well nourished, no distress - Respiratory normal respiratory effort - Genitourinary normal penis with no external lesions, testicles non-tender - Psychiatric oriented to time, oriented to person, oriented to place, speech is normal, memory intact Results - Labs 12/10/22 07:03 12/10/22 07:03 Abnormal Lab Results - Last 24 Hours (Table) 12/08/22 12/08/22 12/09/22 Range/Units 17:10 19:58 05:45 WBC (4.50-10.00) X 10*3/uL RBC (4.10-5.60) X 10*6/uL Hgb (12.0-17.0) d/dL Hct (37.2-50.0) % MCHC (32.0-37.0) d/dL Neutrophils # (1.80-7.70) X 10*3/uL Lymphocytes # (0.90-5.00) X 10*3/uL Eosinophils # (0.04-0.35) X 10*3/uL Carbon Dioxide (21.6-31.8) mmol/L Anion Gap (4.00-12.00) mmol/L BUN (9.0-27.0) mg/dL Creatinine (0.6-1.5) mg/dL Est GFR (CKD-EPI) (>=60) Glucose (70-110) mg/dL POC Glucose (mg/dL) 168 H 229 H (70-110) mg/dL Hemoglobin A1c 6.1 H (<=6.0) % Magnesium (1.5-2.4) mg/dL 12/09/22 12/09/22 12/09/22 Range/Units 05:45 05:45 07:13 WBC 14.26 H (4.50-10.00) X 10*3/uL RBC 3.38 L (4.10-5.60) X 10*6/uL Hgb 10.2 L (12.0-17.0) d/dL Hct 32.4 L (37.2-50.0) % MCHC 31.5 L (32.0-37.0) d/dL Neutrophils # 13.19 H (1.80-7.70) X 10*3/uL Lymphocytes # 0.50 L (0.90-5.00) X 10*3/uL Eosinophils # 0 L (0.04-0.35) X 10*3/uL Carbon Dioxide 18.2 L (21.6-31.8) mmol/L Anion Gap 14.80 H (4.00-12.00) mmol/L BUN 33.2 H (9.0-27.0) mg/dL Creatinine 1.8 H (0.6-1.5) mg/dL Est GFR (CKD-EPI) 39 L (>=60) Glucose 144 H (70-110) mg/dL POC Glucose (mg/dL) 141 H (70-110) mg/dL Hemoglobin A1c (<=6.0) % Magnesium 2.7 H (1.5-2.4) mg/dL 12/09/22 Range/Units 11:43 WBC (4.50-10.00) X 10*3/uL RBC (4.10-5.60) X 10*6/uL Hgb (12.0-17.0) d/dL Hct (37.2-50.0) % MCHC (32.0-37.0) d/dL Neutrophils # (1.80-7.70) X 10*3/uL Lymphocytes # (0.90-5.00) X 10*3/uL Eosinophils # (0.04-0.35) X 10*3/uL Carbon Dioxide (21.6-31.8) mmol/L Anion Gap (4.00-12.00) mmol/L BUN (9.0-27.0) mg/dL Creatinine (0.6-1.5) mg/dL Est GFR (CKD-EPI) (>=60) Glucose (70-110) mg/dL POC Glucose (mg/dL) 133 H (70-110) mg/dL Hemoglobin A1c (<=6.0) % Magnesium (1.5-2.4) mg/dL Microbiology - Last 24 Hours (Table) 12/06/22 19:45 Blood Culture - Preliminary Blood 12/06/22 19:30 Blood Culture - Preliminary Blood Diabetes panel 12/09/22 12/09/22 Range/Units 05:45 05:45 Sodium 140 (135-145) mmol/L Potassium 4.3 (3.5-5.5) mmol/L Chloride 107 (96-109) mmol/L Carbon Dioxide 18.2 L (21.6-31.8) mmol/L BUN 33.2 H (9.0-27.0) mg/dL Creatinine 1.8 H (0.6-1.5) mg/dL Glucose 144 H (70-110) mg/dL Hemoglobin A1c 6.1 H (<=6.0) % Calcium 8.7 (8.7-10.3) mg/dL Calcium panel 12/09/22 Range/Units 05:45 Calcium 8.7 (8.7-10.3) mg/dL Pituitary panel 12/09/22 Range/Units 05:45 Sodium 140 (135-145) mmol/L Potassium 4.3 (3.5-5.5) mmol/L Chloride 107 (96-109) mmol/L Carbon Dioxide 18.2 L (21.6-31.8) mmol/L BUN 33.2 H (9.0-27.0) mg/dL Creatinine 1.8 H (0.6-1.5) mg/dL Glucose 144 H (70-110) mg/dL Calcium 8.7 (8.7-10.3) mg/dL Adrenal panel 12/09/22 Range/Units 05:45 Sodium 140 (135-145) mmol/L Potassium 4.3 (3.5-5.5) mmol/L Chloride 107 (96-109) mmol/L Carbon Dioxide 18.2 L (21.6-31.8) mmol/L BUN 33.2 H (9.0-27.0) mg/dL Creatinine 1.8 H (0.6-1.5) mg/dL Glucose 144 H (70-110) mg/dL Calcium 8.7 (8.7-10.3) mg/dL - Imaging CT scan - abdomen: report reviewed, image reviewed US - kidney/bladder: report reviewed Assessment and Plan Assessment: Ultrasound suggested the presence of left hydronephrosis, as well as a complex left renal cyst. However, CT scan shows no evidence of left hydronephrosis. A left upper pole renal lesion is seen, measuring approximately 2.7 cm in size, but has a negative Hounsfield units suggestive of a high fat content. Plan: I reassured Mr. Pemberton that imaging shows no urologic abnormalities of concern. Please notify me if I can be of any further assistance.
[2022-12-10 17:12] LABS: Glucose,Whole Blood 161 mg/dL (70-110)
--- NOTE | 2022-12-10 17:13 | P.PN ---
Subjective Progress Note Date: 12/08/22 Principal diagnosis: Leukocytosis and bowel obstruction Patient is a 77-year-old male with a past medical his significant for hypertension hyperlipidemia reflux COPD presenting to the hospital for abdominal pain apparently the patient presented to outside hospital initially with the patient will be diagnosed with small bowel obstruction secondary to a hernia and patient has been transferred to this facility for further management. On today's evaluation that is 12/08/2022, the patient denies having any fever or any chills, the patient is breathing comfortably on a 6 L nasal cannula oxygen patient denies having any chest pain no worsening cough or sputum production abdominal pain is currently controlled no further nausea vomiting did not have any bowel movement Patient white count is down to 11.98 with a creatinine of 2.1, blood cultures so far negative Objective - Vital Signs Vital signs: Vital Signs Temp 99.1 F 12/08/22 02:00 Pulse 88 12/08/22 11:40 Resp 18 12/08/22 02:00 BP 147/62 12/08/22 07:15 Pulse Ox 94 L 12/08/22 02:00 FiO2 Intake & Output 12/07/22 12/08/22 12/08/22 18:59 06:59 18:59 Output Total 1000 1025 Balance -1000 -1025 Weight 54.431 kg Output: Urine 1000 1025 Other: Voiding Method Indwelling Catheter Indwelling Catheter Indwelling Catheter - Exam GENERAL DESCRIPTION: An elderly male lying in bed in no distress RESPIRATORY SYSTEM: Unlabored breathing , decreased breath sounds at bases HEART: S1 S2 regular rate and rhythm , ABDOMEN: Soft , mild distention but tenderness EXTREMITIES: No edema feet - Labs CBC & Chem 7: 12/10/22 07:03 12/10/22 07:03 Labs: Abnormal Lab Results - Last 24 Hours (Table) 12/07/22 12/08/22 12/08/22 Range/Units 16:01 05:54 05:54 WBC 11.98 H (4.50-10.00) X 10*3/uL RBC 3.09 L (4.10-5.60) X 10*6/uL Hgb 9.5 L (12.0-17.0) d/dL Hct 30.1 L (37.2-50.0) % MCV 97.4 H (80.0-97.0) FL MCHC 31.6 L (32.0-37.0) d/dL MPV 12.3 H (9.5-12.2) FL Neutrophils # 11.17 H (1.80-7.70) X 10*3/uL Lymphocytes # 0.46 L (0.90-5.00) X 10*3/uL Eosinophils # 0 L (0.04-0.35) X 10*3/uL BUN 50.5 H (9.0-27.0) mg/dL Creatinine 2.1 H (0.6-1.5) mg/dL Est GFR (CKD-EPI) 32 L (>=60) BUN/Creatinine Ratio 24.05 H (12.00-20.00) Ratio Glucose 157 H (70-110) mg/dL POC Glucose (mg/dL) (70-110) mg/dL Calcium 8.4 L (8.7-10.3) mg/dL Procalcitonin 1.29 H (0.02-0.09) ng/mL 12/08/22 Range/Units 12:07 WBC (4.50-10.00) X 10*3/uL RBC (4.10-5.60) X 10*6/uL Hgb (12.0-17.0) d/dL Hct (37.2-50.0) % MCV (80.0-97.0) FL MCHC (32.0-37.0) d/dL MPV (9.5-12.2) FL Neutrophils # (1.80-7.70) X 10*3/uL Lymphocytes # (0.90-5.00) X 10*3/uL Eosinophils # (0.04-0.35) X 10*3/uL BUN (9.0-27.0) mg/dL Creatinine (0.6-1.5) mg/dL Est GFR (CKD-EPI) (>=60) BUN/Creatinine Ratio (12.00-20.00) Ratio Glucose (70-110) mg/dL POC Glucose (mg/dL) 298 H (70-110) mg/dL Calcium (8.7-10.3) mg/dL Procalcitonin (0.02-0.09) ng/mL Microbiology - Last 24 Hours (Table) 12/06/22 19:45 Blood Culture - Preliminary Blood 12/06/22 19:30 Blood Culture - Preliminary Blood Assessment and Plan (1) Leukocytosis Current Visit: Yes Status: Acute Code(s): D72.829 - ELEVATED WHITE BLOOD CELL COUNT, UNSPECIFIED SNOMED Code(s): 110396157 (2) Partial small bowel obstruction Current Visit: Yes Status: Acute Code(s): K56.600 - PARTIAL INTESTINAL OBSTRUCTION, UNSPECIFIED TO CAUSE SNOMED Code(s): 394725404 Plan: 1patient present hospital abdominal pain in this patient has been diagnosed small bowel obstruction outside facility secondary to hernia, in this patient with evidence of elevated white count abdominal distention we will need to cover for the enteric gram-negative the likely pathogen urine did not show any evidence of pyuria chest x-ray was negative for any pneumonia. 2patient with renal insufficiency and high risk of nephrotoxicity. 3patient to continue with Zosyn 3.375 g every 8 hours while waiting for his condition to stabilize and monitor clinical course closely Dictation was produced using [employer] dictation software. please excuse any grammatical, word or spelling errors. Time with Patient: Less than 30
--- NOTE | 2022-12-10 17:15 | P.PN ---
Subjective Progress Note Date: 12/09/22 Principal diagnosis: Leukocytosis and bowel obstruction Patient is a 77-year-old male with a past medical his significant for hypertension hyperlipidemia reflux COPD presenting to the hospital for abdominal pain apparently the patient presented to outside hospital initially with the patient will be diagnosed with small bowel obstruction secondary to a hernia and patient has been transferred to this facility for further management. On today's evaluation that is 12/09/2022, the patient remains to be afebrile, the patient is breathing comfortably on a 3 L nasal cannula oxygen, the patient denies having any chest pain no worsening cough or sputum production abdominal pain is currently controlled no further nausea vomiting did not have any bowel movement Patient white count is slightly up to 14.6 today, the patient creatinine is down to 1.8, blood cultures so far negative Objective - Vital Signs Vital signs: Vital Signs Temp 98.1 F 12/09/22 12:24 Pulse 101 H 12/09/22 12:24 Resp 20 12/09/22 12:24 BP 158/71 12/09/22 12:24 Pulse Ox 92 L 12/09/22 12:24 FiO2 Intake & Output 12/08/22 12/09/22 12/09/22 18:59 06:59 18:59 Output Total 1300 1825 Balance -1300 -1825 Output: Urine 1300 1825 Other: Voiding Method Indwelling Catheter Indwelling Catheter Indwelling Catheter - Exam GENERAL DESCRIPTION: An elderly male lying in bed in no distress RESPIRATORY SYSTEM: Unlabored breathing , decreased breath sounds at bases HEART: S1 S2 regular rate and rhythm , ABDOMEN: Soft , mild distention but tenderness EXTREMITIES: No edema feet - Labs CBC & Chem 7: 12/10/22 07:03 12/10/22 07:03 Labs: Abnormal Lab Results - Last 24 Hours (Table) 12/08/22 12/08/22 12/08/22 Range/Units 14:13 17:10 19:58 WBC (4.50-10.00) X 10*3/uL RBC (4.10-5.60) X 10*6/uL Hgb (12.0-17.0) d/dL Hct (37.2-50.0) % MCHC (32.0-37.0) d/dL Neutrophils # (1.80-7.70) X 10*3/uL Lymphocytes # (0.90-5.00) X 10*3/uL Eosinophils # (0.04-0.35) X 10*3/uL Carbon Dioxide (21.6-31.8) mmol/L Anion Gap (4.00-12.00) mmol/L BUN (9.0-27.0) mg/dL Creatinine (0.6-1.5) mg/dL Est GFR (CKD-EPI) (>=60) Glucose (70-110) mg/dL POC Glucose (mg/dL) 168 H 229 H (70-110) mg/dL Hemoglobin A1c (<=6.0) % Magnesium (1.5-2.4) mg/dL Urine Protein 1+ H (Negative) Urine Glucose (UA) Trace H (Negative) Urine Blood Large H (Negative) Ur Leukocyte Esterase Small H (Negative) Urine RBC >182 H (0-5) /hpf Urine WBC 11 H (0-5) /hpf Urine Bacteria Rare H (None) /hpf Urine Mucus Rare H (None) /hpf 12/09/22 12/09/22 12/09/22 Range/Units 05:45 05:45 05:45 WBC 14.26 H (4.50-10.00) X 10*3/uL RBC 3.38 L (4.10-5.60) X 10*6/uL Hgb 10.2 L (12.0-17.0) d/dL Hct 32.4 L (37.2-50.0) % MCHC 31.5 L (32.0-37.0) d/dL Neutrophils # 13.19 H (1.80-7.70) X 10*3/uL Lymphocytes # 0.50 L (0.90-5.00) X 10*3/uL Eosinophils # 0 L (0.04-0.35) X 10*3/uL Carbon Dioxide 18.2 L (21.6-31.8) mmol/L Anion Gap 14.80 H (4.00-12.00) mmol/L BUN 33.2 H (9.0-27.0) mg/dL Creatinine 1.8 H (0.6-1.5) mg/dL Est GFR (CKD-EPI) 39 L (>=60) Glucose 144 H (70-110) mg/dL POC Glucose (mg/dL) (70-110) mg/dL Hemoglobin A1c 6.1 H (<=6.0) % Magnesium 2.7 H (1.5-2.4) mg/dL Urine Protein (Negative) Urine Glucose (UA) (Negative) Urine Blood (Negative) Ur Leukocyte Esterase (Negative) Urine RBC (0-5) /hpf Urine WBC (0-5) /hpf Urine Bacteria (None) /hpf Urine Mucus (None) /hpf 12/09/22 12/09/22 Range/Units 07:13 11:43 WBC (4.50-10.00) X 10*3/uL RBC (4.10-5.60) X 10*6/uL Hgb (12.0-17.0) d/dL Hct (37.2-50.0) % MCHC (32.0-37.0) d/dL Neutrophils # (1.80-7.70) X 10*3/uL Lymphocytes # (0.90-5.00) X 10*3/uL Eosinophils # (0.04-0.35) X 10*3/uL Carbon Dioxide (21.6-31.8) mmol/L Anion Gap (4.00-12.00) mmol/L BUN (9.0-27.0) mg/dL Creatinine (0.6-1.5) mg/dL Est GFR (CKD-EPI) (>=60) Glucose (70-110) mg/dL POC Glucose (mg/dL) 141 H 133 H (70-110) mg/dL Hemoglobin A1c (<=6.0) % Magnesium (1.5-2.4) mg/dL Urine Protein (Negative) Urine Glucose (UA) (Negative) Urine Blood (Negative) Ur Leukocyte Esterase (Negative) Urine RBC (0-5) /hpf Urine WBC (0-5) /hpf Urine Bacteria (None) /hpf Urine Mucus (None) /hpf Microbiology - Last 24 Hours (Table) 12/06/22 19:45 Blood Culture - Preliminary Blood 12/06/22 19:30 Blood Culture - Preliminary Blood Assessment and Plan (1) Leukocytosis Current Visit: Yes Status: Acute Code(s): D72.829 - ELEVATED WHITE BLOOD CELL COUNT, UNSPECIFIED SNOMED Code(s): 934388746 (2) Partial small bowel obstruction Current Visit: Yes Status: Acute Code(s): K56.600 - PARTIAL INTESTINAL OBSTRUCTION, UNSPECIFIED TO CAUSE SNOMED Code(s): 421465038 Plan: 1patient present hospital abdominal pain in this patient has been diagnosed small bowel obstruction outside facility secondary to hernia, in this patient with evidence of elevated white count abdominal distention we will need to cover for the enteric gram-negative the likely pathogen urine did not show any evidence of pyuria chest x-ray was negative for any pneumonia. 2patient with renal insufficiency and high risk of nephrotoxicity. 3patient to continue with Zosyn 3.375 g every 8 hours while waiting for surgery this evening Dictation was produced using [employer] dictation software. please excuse any grammatical, word or spelling errors. Time with Patient: Less than 30
--- NOTE | 2022-12-10 17:17 | P.PN ---
Subjective Progress Note Date: 12/10/22 Principal diagnosis: Leukocytosis and bowel obstruction Patient is a 77-year-old male with a past medical his significant for hypertension hyperlipidemia reflux COPD presenting to the hospital for abdominal pain apparently the patient presented to outside hospital initially with the patient will be diagnosed with small bowel obstruction secondary to a hernia and patient has been transferred to this facility for further management.Patient did have evidence of incarcerated bilateral inguinal hernia sac however no mention of any incarcerated bowel perforation on operative report in this patient who is status post operative repair on 12/09/2022 on today's evaluation that is 12/10/2022, the patient denies having any fever or any chills, the patient is breathing comfortably, the patient denies having any chest pain, no nausea no vomiting no abdominal pain and no BM has been reported. Patient white count is down to 12.9, creatinine is 1.8 Objective - Vital Signs Vital signs: Vital Signs Temp 98.6 F 12/10/22 12:18 Pulse 71 12/10/22 12:18 Resp 20 12/10/22 12:18 BP 130/57 12/10/22 12:18 Pulse Ox 100 12/10/22 12:18 FiO2 Intake & Output 12/09/22 12/10/22 12/10/22 18:59 06:59 18:59 Intake Total 1250 450 Output Total 700 1155 Balance 550 -705 Weight 54.431 kg 54.431 kg Intake: IV 1250 450 Oral 0 Output: Urine 700 1150 Estimated Blood Loss 5 Other: Voiding Method Indwelling Catheter Indwelling Catheter Indwelling Catheter - Exam GENERAL DESCRIPTION: An elderly male lying in bed in no distress RESPIRATORY SYSTEM: Unlabored breathing , decreased breath sounds at bases HEART: S1 S2 regular rate and rhythm , ABDOMEN: Soft , mild distention but tenderness EXTREMITIES: No edema feet - Labs CBC & Chem 7: 12/10/22 07:03 12/10/22 07:03 Labs: Abnormal Lab Results - Last 24 Hours (Table) 12/09/22 12/09/22 12/10/22 Range/Units 16:20 22:22 07:03 WBC (3.8-10.6) k/uL RBC (4.30-5.90) m/uL Hgb (13.0-17.5) gm/dL Hct (39.0-53.0) % Neutrophils # (1.3-7.7) k/uL Lymphocytes # (1.0-4.8) k/uL Sodium 146 H (135-145) mmol/L Chloride 113 H (96-109) mmol/L BUN 33.8 H (9.0-27.0) mg/dL Creatinine 1.8 H (0.6-1.5) mg/dL Est GFR (CKD-EPI) 39 L (>=60) Glucose 116 H (70-110) mg/dL POC Glucose (mg/dL) 135 H 159 H (70-110) mg/dL Calcium 8.3 L (8.7-10.3) mg/dL Magnesium 2.5 H (1.5-2.4) mg/dL 12/10/22 12/10/22 12/10/22 Range/Units 07:03 07:05 12:31 WBC 12.9 H (3.8-10.6) k/uL RBC 3.21 L (4.30-5.90) m/uL Hgb 10.4 L (13.0-17.5) gm/dL Hct 31.1 L (39.0-53.0) % Neutrophils # 11.8 H (1.3-7.7) k/uL Lymphocytes # 0.4 L (1.0-4.8) k/uL Sodium (135-145) mmol/L Chloride (96-109) mmol/L BUN (9.0-27.0) mg/dL Creatinine (0.6-1.5) mg/dL Est GFR (CKD-EPI) (>=60) Glucose (70-110) mg/dL POC Glucose (mg/dL) 122 H 223 H (70-110) mg/dL Calcium (8.7-10.3) mg/dL Magnesium (1.5-2.4) mg/dL Microbiology - Last 24 Hours (Table) 12/06/22 19:45 Blood Culture - Preliminary Blood 12/06/22 19:30 Blood Culture - Preliminary Blood Assessment and Plan (1) Incarcerated inguinal hernia, bilateral Current Visit: Yes Status: Acute Code(s): K40.00 - BI INGUINAL HERNIA, W OBST, W/O GANGRENE, NOT SPCF RECUR SNOMED Code(s): 820613139 (2) Leukocytosis Current Visit: Yes Status: Acute Code(s): D72.829 - ELEVATED WHITE BLOOD CELL COUNT, UNSPECIFIED SNOMED Code(s): 039538873 Plan: 1patient present hospital abdominal pain in this patient has been diagnosed small bowel obstruction outside facility secondary to hernia, in this patient with evidence of elevated white count abdominal distention , patient did have evidence of incarcerated bilateral inguinal hernia status post operative repair with no mention of any incarcerated bowel or perforation 2patient to continue with Zosyn 3.375 g every 8 hours and monitor his clinical course closely Dictation was produced using [employer] dictation software. please excuse any grammatical, word or spelling errors. Time with Patient: Less than 30
[2022-12-10 20:08] LABS: Glucose,Whole Blood 146 mg/dL (70-110)
[2022-12-10] MEDS: TAMSULOSIN 0.4 MG CAP.ER.24H PO SCH (20:14)
[2022-12-11] MEDS: PIPERACILLIN-TAZOBACTAM 3.375 GM in SODIUM CHLORIDE 0.9% 100 ML IVPB SCH ×4 (00:14→23:38)
[2022-12-11] MEDS: methylPREDNISolone SOD SUCCI 125 MG/2 ML VIAL IV SCH ×2 (00:14→05:38)
[2022-12-11 07:34] LABS: Glucose,Whole Blood 139 mg/dL (70-110)
[2022-12-11] MEDS: INSULIN ASPART (NovoLOG) 100 UNIT/ML VIAL SQ SCH ×4 (07:38→20:49)
[2022-12-11] MEDS: HEPARIN SODIUM,PORCINE 5,000 UNIT/ML 1 ML VIAL SQ SCH ×2 (07:40→20:49)
[2022-12-11] MEDS: DOCUSATE 100 MG CAP PO SCH ×2 (07:40→20:49)
[2022-12-11] MEDS: METOPROLOL SUCCINATE (ER) 25 MG TAB.ER.24H PO SCH (07:41)
[2022-12-11] MEDS: THIAMINE 100 MG TAB PO SCH (07:41)
[2022-12-11] MEDS: SODIUM BICARBONATE TAB 650 MG TAB PO SCH ×2 (07:41→20:49)
[2022-12-11] MEDS: NON FORMULARY DRUG (Mirabegron [Myrbetriq] 50 MG Tab.Er.24h) PO SCH (07:42)
[2022-12-11] MEDS: SERTRALINE 25 MG TAB PO SCH (07:42)
[2022-12-11 08:04] LABS: Basophils % (A) 0 %; Eosinophils # (A) 0.1 k/uL (0-0.7); Eosinophils % (A) 1 %; HCT 32.4 % (39.0-53.0); HGB 10.2 gm/dL (13.0-17.5); Lymphocytes # (A) 0.4 k/uL (1.0-4.8); Lymphocytes % (A) 3 %; MCH 30.9 pg (25.0-35.0); MCHC 31.4 g/dL (31.0-37.0); MCV 98.5 fL (80.0-100.0); Mean Platelet Volume 9.5; Monocytes # (A) 0.6 k/uL (0-1.0); Monocytes % (A) 4 %; Neutrophils # (A) 12.7 k/uL (1.3-7.7); Neutrophils % (A) 91 %; Platelet Count 164 k/uL (150-450); RBC 3.29 m/uL (4.30-5.90); RDW 13.2 % (11.5-15.5); WBC 13.9 k/uL (3.8-10.6)
--- NOTE | 2022-12-11 08:04 | P.PN ---
Subjective Progress Note Date: 12/11/22 This is a 77-year-old male patient with a history of chronic obstructive pulmonary disease, former smoker, daily alcohol use, gastroesophageal reflux disease, hypertension, hyperlipidemia, neuromuscular dysfunction and the bladder,, previous thoracic aortic aneurysm repair for aortic valve repair. He does have a history of bilateral inguinal hernias and was having issues with abdominal pain and was found to have an incarcerated hernia was transferred from [facility] to here for surgical evaluation. He was also having concern is also having complaints of increasing shortness of breath. Chest x-ray revealed no acute pulmonary process. He states he quit smoking in March 2022. He is not on home oxygen. He is on DuoNeb inhalations and Combivent inhaler in the outpatient setting. He is seen today in consultation. He is currently maintaining O2 saturations in the 90s on room air. He's afebrile. Hemodynamically stable. White count 18.5. Hemoglobin 11.0. Platelets 154. Sodium 137. Potassium 4.7. Bicarb 25. BUN 71. Creatinine 2.21. Glucose 130. Influenza screen negative. RSV screen negative. COVID-19 screen negative. The patient is seen today 12/08/2022 in follow-up on the regular medical floor. He is currently sitting up having breakfast. Awake and alert in no acute distress. He is maintaining good O2 saturations in the 90s on room air. His FEV1 value is 0.53 L which is 20% of predicted. Gold stage IV COPD. He is breathing easier today compared to yesterday. He had been initiated on Pulmicort and Perforomist inhalations, DuoNeb inhalations, IV Solu-Medrol. Antibiotics in the form of Zosyn. Heparin for DVT prophylaxis. Currently in the CIWA protocol. No Ativan required. Plan is for surgical intervention regarding incarcerated hernia tomorrow. White count 11.9. Hemoglobin 9.5. Platelets 146. Sodium 142. Potassium 4.7. Bicarb 23. BUN 51. Creatinine 2.1. Glucose 157. Pro-calcitonin was 1.29. The patient is seen today 12/09/2022 in follow-up on the regular medical floor. He is resting in bed. Awake alert no acute distress. Continues to breathe easier each day. Denies any worsening shortness of breath, cough or congestion. 18 in good O2 saturations in the 90s on room air. He's afebrile. Hemodynamically stable. White count 14.2. Hemoglobin 10.2. Platelets 160. Sodium 140. Potassium 4.3. I curb 18. BUN 32. Creatinine 1.8. He is continued on Zosyn. Remains on bronchodilators, steroids. Normal saline at 50 MLS per hour. Plan is for surgical repair of his inguinal hernia today. The patient is seen today 12/10/2022 in follow-up on the regular medical floor. He is resting comfortably in bed. Awake and alert in no acute distress. Maintaining O2 saturations in the 90s on 2 L/m per nasal cannula. D5W at 50 MLS per hour. He did undergo bilateral hernia repair. Postoperative day #1. Tolerated procedure well. He is continued on DuoNeb inhalations, Pulmicort and Perforomist inhalations, IV Solu-Medrol. Antibiotics in the form of Zosyn. Heparin for DVT prophylaxis. White count 12.9. Hemoglobin 10.4. Platelets 156. Sodium 146. Potassium 4.4. Bicarb 23. BUN 34. Creatinine 1.8. Glucose 116. The patient is seen today 12/11/2022 in follow-up on the regular medical floor. He is awake and alert in no acute distress. He is maintaining good O2 saturation in the mid 90s on 2 L nasal cannula. He continues to work well with the incentive spirometer. He is afebrile. Hemodynamically stable. Blood cultures reveal no growth. Glucose 139. He is continued on DuoNeb inhalations, Symbicort, Solu-Medrol. Antibiotics in the form of Zosyn. Heparin for DVT prophylaxis. Objective - Vital Signs Vital signs: Vital Signs Temp 98.7 F 12/11/22 01:21 Pulse 85 12/11/22 01:21 Resp 19 12/11/22 01:21 BP 152/73 12/11/22 01:21 Pulse Ox 96 12/11/22 01:21 FiO2 Intake & Output 12/10/22 12/11/22 12/11/22 18:59 06:59 18:59 Intake Total 820 Output Total 500 650 Balance -500 170 Weight 54.431 kg Intake: Intake, IV Titration 700 Amount Dextrose 5% in Water 1, 600 000 ml @ 50 mls/hr IV . Q20H [facility] Rx#:[id number] Piperacillin-Tazobactam 3 100 .375 gm In Sodium Chloride 0.9% 100 ml @ 25 mls/hr IVPB Q8HR [facility] Rx# :[id number] Oral 120 Output: Urine 500 650 Other: Voiding Method Indwelling Catheter Indwelling Catheter - Exam GENERAL EXAM: Alert, 77-year-old male, sitting up in bed, on 2 L nasal cannula, comfortable in no apparent distress. HEAD: Normocephalic. EYES: Normal reaction of pupils, equal size. NOSE: Clear with pink turbinates. THROAT: Edentulous. No erythema or exudates. NECK: No masses, no JVD. CHEST: No chest wall deformity. LUNGS: Equal air entry with a faint end expiratory wheeze, diminished. CVS: S1 and S2 normal with no audible murmur, regular rhythm. ABDOMEN: No hepatosplenomegaly, normal bowel sounds, no guarding or rigidity. SPINE: No scoliosis or deformity SKIN: No rashes CENTRAL NERVOUS SYSTEM: No focal deficits, tone is normal in all 4 extremities. EXTREMITIES: Bilateral inguinal surgical sites clean and dry. There is no peripheral edema. No clubbing, no cyanosis. Peripheral pulses are intact. - Labs CBC & Chem 7: 12/10/22 07:03 12/10/22 07:03 Labs: Abnormal Lab Results - Last 24 Hours (Table) 12/10/22 12/10/22 12/10/22 Range/Units 07:03 12:31 17:11 Sodium 146 H (135-145) mmol/L Chloride 113 H (96-109) mmol/L BUN 33.8 H (9.0-27.0) mg/dL Creatinine 1.8 H (0.6-1.5) mg/dL Est GFR (CKD-EPI) 39 L (>=60) Glucose 116 H (70-110) mg/dL POC Glucose (mg/dL) 223 H 161 H (70-110) mg/dL Calcium 8.3 L (8.7-10.3) mg/dL Magnesium 2.5 H (1.5-2.4) mg/dL 12/10/22 12/11/22 Range/Units 20:07 07:33 Sodium (135-145) mmol/L Chloride (96-109) mmol/L BUN (9.0-27.0) mg/dL Creatinine (0.6-1.5) mg/dL Est GFR (CKD-EPI) (>=60) Glucose (70-110) mg/dL POC Glucose (mg/dL) 146 H 139 H (70-110) mg/dL Calcium (8.7-10.3) mg/dL Magnesium (1.5-2.4) mg/dL Assessment and Plan Assessment: Abdominal pain secondary to incarcerated inguinal hernias, right greater than left. Status post bilateral hernia repairs. Postoperative day #2. Acute exacerbation of chronic obstructive pulmonary disease. FEV1 value 0.53 L, 20% of predicted History of greater than 50 years smoking, quit March 2022 Acute kidney injury, diuretics have been held History of previous heavy alcohol use History of neurogenic bladder History of thoracic aortic aneurysm/aortic valve repair at [facility] May 2018 Hypertension Hyperlipidemia History of depression Plan: The patient was seen and evaluated Labs and medications reviewed Discontinue Solu-Medrol, initiate prednisone taper Continue Zosyn, Symbicort, DuoNebs Working with the incentive spirometer Titrate down the FiO2 as tolerated Increase his activity as tolerated We will continue to follow I have personally seen and examined the patient, performed the documentation and the assessment and plan as written. Number of minutes spent on the visit: 10.
[2022-12-11] MEDS: SYMBICORT 160-4.5 MCG INHALER INHALATION SCH ×2 (08:32→20:00)
[2022-12-11] MEDS: IPRATROPIUM-ALBUTEROL 3 ML NEB INHALATION SCH ×4 (08:32→20:00)
[2022-12-11 08:44] LABS: African American GFR (CKD) 47 (>60 ml/min/1.73 sqM); Anion Gap 6 mmol/L; Blood Urea Nitrogen 37 mg/dL (9-20); Calcium 7.8 mg/dL (8.4-10.2); Carbon Dioxide 24 mmol/L (22-30); Chloride 110 mmol/L (98-107); Glucose 130 mg/dL (74-99); Magnesium 2.5 mg/dL (1.6-2.3); Non-African American GFR(CKD) 41 (>60 ml/min/1.73 sqM); Sodium 140 mmol/L (137-145)
[2022-12-11] MEDS ORDERED: SENNOSIDES 8.6 MG TAB PO PRN (09:33)
[2022-12-11] MEDS: predniSONE 20 MG TAB PO SCH (10:15)
[2022-12-11 12:32] LABS: Glucose,Whole Blood 256 mg/dL (70-110)
[2022-12-11] MEDS: DEXTROSE 5% IN WATER 1,000 ML IV SCH (13:05)
--- NOTE | 2022-12-11 13:15 | P.PN ---
Subjective Progress Note Date: 12/11/22 Follow-up for acute kidney injury. Objective - Vital Signs Vital signs: Vital Signs Temp 98.8 F 12/11/22 07:29 Pulse 98 12/11/22 12:00 Resp 18 12/11/22 07:29 BP 156/68 12/11/22 07:29 Pulse Ox 96 12/11/22 08:32 FiO2 Intake & Output 12/10/22 12/11/22 12/11/22 18:59 06:59 18:59 Intake Total 820 Output Total 500 650 Balance -500 170 Weight 54.431 kg Intake: Intake, IV Titration 700 Amount Dextrose 5% in Water 1, 600 000 ml @ 50 mls/hr IV . Q20H [facility] Rx#:[id number] Piperacillin-Tazobactam 3 100 .375 gm In Sodium Chloride 0.9% 100 ml @ 25 mls/hr IVPB Q8HR [facility] Rx# :[id number] Oral 120 Output: Urine 500 650 Other: Voiding Method Indwelling Catheter Indwelling Catheter Indwelling Catheter - Exam No acute distress S1-S2 heard Lungs clear No edema - Labs CBC & Chem 7: 12/11/22 06:15 12/11/22 06:15 Labs: Abnormal Lab Results - Last 24 Hours (Table) 12/10/22 12/10/22 12/11/22 Range/Units 17:11 20:07 06:15 WBC (3.8-10.6) k/uL RBC (4.30-5.90) m/uL Hgb (13.0-17.5) gm/dL Hct (39.0-53.0) % Neutrophils # (1.3-7.7) k/uL Lymphocytes # (1.0-4.8) k/uL Chloride 110 H (98-107) mmol/L BUN 37 H (9-20) mg/dL Creatinine 1.63 H (0.66-1.25) mg/dL Glucose 130 H (74-99) mg/dL POC Glucose (mg/dL) 161 H 146 H (70-110) mg/dL Calcium 7.8 L (8.4-10.2) mg/dL Magnesium 2.5 H (1.6-2.3) mg/dL 12/11/22 12/11/22 12/11/22 Range/Units 06:15 07:33 12:31 WBC 13.9 H (3.8-10.6) k/uL RBC 3.29 L (4.30-5.90) m/uL Hgb 10.2 L (13.0-17.5) gm/dL Hct 32.4 L (39.0-53.0) % Neutrophils # 12.7 H (1.3-7.7) k/uL Lymphocytes # 0.4 L (1.0-4.8) k/uL Chloride (98-107) mmol/L BUN (9-20) mg/dL Creatinine (0.66-1.25) mg/dL Glucose (74-99) mg/dL POC Glucose (mg/dL) 139 H 256 H (70-110) mg/dL Calcium (8.4-10.2) mg/dL Magnesium (1.6-2.3) mg/dL Assessment and Plan Assessment: #1 acute kidney injury secondary to hemodynamic ATN. -Baseline creatinine 1.5 MG per DL -Admission creatinine 2.1 MG per DL. -Renal ultrasound left renal complex cyst and mild hydronephrosis #2 chronic kidney disease stage IIIB with a baseline creatinine of 1.5 MG per DL. #3 chronic diastolic CHF #4 bilateral abdominal hernia status post repair Plan: #1 renal function close to baseline. #2 avoid nephrotoxic agents and hypotensive episodes
--- NOTE | 2022-12-11 15:19 | PN ---
PROGRESS NOTE DATE OF SERVICE: 12/11/2022 SUBJECTIVE: This is a 77-year-old gentleman admitted with bilateral inguinal hernia incarceration. He had multiple other complex medical issues. Also, the patient is on empiric antibiotics. The patient also had renal failure. OBJECTIVE: VITAL SIGNS: Pulse is 80 with a blood pressure 150/68 and respirations 18. CHEST: Clear to auscultation. CARDIOVASCULAR: S1, S2. ABDOMEN: Soft. Inguinal swelling and scrotal swelling present. LABORATORY DATA: WBC 13.9 and creatinine is 1.68. ASSESSMENT: 1. Bilateral inguinal hernia with possible incarceration as well as small bowel obstruction, status post laparoscopic repair. 2. Right complex kidney cyst for outpatient followup. 3. Aortic dissection, stable. 4. Chronic obstructive pulmonary disease, moderate to severe. 5. History of EtOH. 6. Increased WBC. 7. History of multiple medical issues. RECOMMENDATIONS: Recommend to continue current management. I am going to repeat labs. Continue the antibiotics. Closely follow with multiple consultants including Surgery. Guarded prognosis. Further recommendations to follow. MMODL / IJN: [id number] /
--- NOTE | 2022-12-11 15:22 | P.PN ---
Subjective Progress Note Date: 12/11/22 No recurrent hernia. He is doing very well. He is happy with his surgery. Clear from surgery for discharge when medically stable. Objective - Vital Signs Vital signs: Vital Signs Temp 99.9 F H 12/11/22 13:46 Pulse 57 L 12/11/22 13:46 Resp 18 12/11/22 13:46 BP 124/53 12/11/22 13:46 Pulse Ox 93 L 12/11/22 13:46 FiO2 Intake & Output 12/10/22 12/11/22 12/11/22 18:59 06:59 18:59 Intake Total 820 Output Total 500 650 Balance -500 170 Weight 54.431 kg Intake: Intake, IV Titration 700 Amount Dextrose 5% in Water 1, 600 000 ml @ 50 mls/hr IV . Q20H [facility] Rx#:[id number] Piperacillin-Tazobactam 3 100 .375 gm In Sodium Chloride 0.9% 100 ml @ 25 mls/hr IVPB Q8HR [facility] Rx# :[id number] Oral 120 Output: Urine 500 650 Other: Voiding Method Indwelling Catheter Indwelling Catheter Indwelling Catheter - Labs CBC & Chem 7: 12/11/22 06:15 12/11/22 06:15 Labs: Abnormal Lab Results - Last 24 Hours (Table) 12/10/22 12/10/22 12/11/22 Range/Units 17:11 20:07 06:15 WBC (3.8-10.6) k/uL RBC (4.30-5.90) m/uL Hgb (13.0-17.5) gm/dL Hct (39.0-53.0) % Neutrophils # (1.3-7.7) k/uL Lymphocytes # (1.0-4.8) k/uL Chloride 110 H (98-107) mmol/L BUN 37 H (9-20) mg/dL Creatinine 1.63 H (0.66-1.25) mg/dL Glucose 130 H (74-99) mg/dL POC Glucose (mg/dL) 161 H 146 H (70-110) mg/dL Calcium 7.8 L (8.4-10.2) mg/dL Magnesium 2.5 H (1.6-2.3) mg/dL 12/11/22 12/11/22 12/11/22 Range/Units 06:15 07:33 12:31 WBC 13.9 H (3.8-10.6) k/uL RBC 3.29 L (4.30-5.90) m/uL Hgb 10.2 L (13.0-17.5) gm/dL Hct 32.4 L (39.0-53.0) % Neutrophils # 12.7 H (1.3-7.7) k/uL Lymphocytes # 0.4 L (1.0-4.8) k/uL Chloride (98-107) mmol/L BUN (9-20) mg/dL Creatinine (0.66-1.25) mg/dL Glucose (74-99) mg/dL POC Glucose (mg/dL) 139 H 256 H (70-110) mg/dL Calcium (8.4-10.2) mg/dL Magnesium (1.6-2.3) mg/dL
[2022-12-11 17:38] LABS: Glucose,Whole Blood 215 mg/dL (70-110)
--- NOTE | 2022-12-11 17:57 | P.PN ---
Subjective Progress Note Date: 12/11/22 Principal diagnosis: Leukocytosis and bowel obstruction Patient is a 77-year-old male with a past medical his significant for hypertension hyperlipidemia reflux COPD presenting to the hospital for abdominal pain apparently the patient presented to outside hospital initially with the patient will be diagnosed with small bowel obstruction secondary to a hernia and patient has been transferred to this facility for further management.Patient did have evidence of incarcerated bilateral inguinal hernia sac however no mention of any incarcerated bowel perforation on operative report in this patient who is status post operative repair on 12/09/2022 on today's evaluation that is 12/11/2022, the patient did have a low-grade fever of 99.9F this afternoon, the patient is breathing comfortably on room air, the patient denies chest pain shortness of breath or cough, no nausea no vomiting no abdominal pain and no diarrhea has been reported. Patient white count is slightly up to 13.9 today, creatinine is 1.63 Objective - Vital Signs Vital signs: Vital Signs Temp 99.9 F H 12/11/22 13:46 Pulse 96 12/11/22 15:34 Resp 18 12/11/22 13:46 BP 124/53 12/11/22 13:46 Pulse Ox 93 L 12/11/22 13:46 FiO2 Intake & Output 12/10/22 12/11/22 12/11/22 18:59 06:59 18:59 Intake Total 820 Output Total 500 650 Balance -500 170 Weight 54.431 kg Intake: Intake, IV Titration 700 Amount Dextrose 5% in Water 1, 600 000 ml @ 50 mls/hr IV . Q20H [facility] Rx#:[id number] Piperacillin-Tazobactam 3 100 .375 gm In Sodium Chloride 0.9% 100 ml @ 25 mls/hr IVPB Q8HR [facility] Rx# :[id number] Oral 120 Output: Urine 500 650 Other: Voiding Method Indwelling Catheter Indwelling Catheter Indwelling Catheter - Exam GENERAL DESCRIPTION: An elderly male lying in bed in no distress RESPIRATORY SYSTEM: Unlabored breathing , decreased breath sounds at bases HEART: S1 S2 regular rate and rhythm , ABDOMEN: Soft , mild distention but tenderness EXTREMITIES: No edema feet - Labs CBC & Chem 7: 12/11/22 06:15 12/11/22 06:15 Labs: Abnormal Lab Results - Last 24 Hours (Table) 09/11/2412/11/22 12/11/22 Range/Units 20:07 06:15 06:15 WBC 13.9 H (3.8-10.6) k/uL RBC 3.29 L (4.30-5.90) m/uL Hgb 10.2 L (13.0-17.5) gm/dL Hct 32.4 L (39.0-53.0) % Neutrophils # 12.7 H (1.3-7.7) k/uL Lymphocytes # 0.4 L (1.0-4.8) k/uL Chloride 110 H (98-107) mmol/L BUN 37 H (9-20) mg/dL Creatinine 1.63 H (0.66-1.25) mg/dL Glucose 130 H (74-99) mg/dL POC Glucose (mg/dL) 146 H (70-110) mg/dL Calcium 7.8 L (8.4-10.2) mg/dL Magnesium 2.5 H (1.6-2.3) mg/dL 12/11/22 12/11/22 12/11/22 Range/Units 07:33 12:31 17:37 WBC (3.8-10.6) k/uL RBC (4.30-5.90) m/uL Hgb (13.0-17.5) gm/dL Hct (39.0-53.0) % Neutrophils # (1.3-7.7) k/uL Lymphocytes # (1.0-4.8) k/uL Chloride (98-107) mmol/L BUN (9-20) mg/dL Creatinine (0.66-1.25) mg/dL Glucose (74-99) mg/dL POC Glucose (mg/dL) 139 H 256 H 215 H (70-110) mg/dL Calcium (8.4-10.2) mg/dL Magnesium (1.6-2.3) mg/dL Assessment and Plan (1) Incarcerated inguinal hernia, bilateral Current Visit: Yes Status: Acute Code(s): K40.00 - BI INGUINAL HERNIA, W OBST, W/O GANGRENE, NOT SPCF RECUR SNOMED Code(s): 657869845 (2) Leukocytosis Current Visit: Yes Status: Acute Code(s): D72.829 - ELEVATED WHITE BLOOD CELL COUNT, UNSPECIFIED SNOMED Code(s): 237322937 Plan: 1patient present hospital abdominal pain in this patient has been diagnosed small bowel obstruction outside facility secondary to hernia, in this patient with evidence of elevated white count abdominal distention , patient did have evidence of incarcerated bilateral inguinal hernia status post operative repair with no mention of any incarcerated bowel or perforation 2patient did have a low-grade fever and slight elevated white count which will monitor closely, and we will continue with Zosyn 3.375 g every 8 hours and continue supportive care Dictation was produced using e[employer] dictation software. please excuse any grammatical, word or spelling errors. Time with Patient: Less than 30
[2022-12-11 20:44] LABS: Glucose,Whole Blood 234 mg/dL (70-110)
[2022-12-11] MEDS: TAMSULOSIN 0.4 MG CAP.ER.24H PO SCH (20:49)
[2022-12-12 07:20] LABS: Glucose,Whole Blood 105 mg/dL (70-110)
[2022-12-12] MEDS: SYMBICORT 160-4.5 MCG INHALER INHALATION SCH ×2 (07:47→19:45)
[2022-12-12] MEDS: IPRATROPIUM-ALBUTEROL 3 ML NEB INHALATION SCH ×4 (07:47→19:45)
[2022-12-12] MEDS: predniSONE 20 MG TAB PO SCH (08:35)
[2022-12-12] MEDS: SODIUM BICARBONATE TAB 650 MG TAB PO SCH ×2 (08:35→20:26)
[2022-12-12] MEDS: DOCUSATE 100 MG CAP PO SCH ×2 (08:35→20:25)
[2022-12-12] MEDS: THIAMINE 100 MG TAB PO SCH (08:35)
[2022-12-12] MEDS: METOPROLOL SUCCINATE (ER) 25 MG TAB.ER.24H PO SCH (08:35)
[2022-12-12] MEDS: HEPARIN SODIUM,PORCINE 5,000 UNIT/ML 1 ML VIAL SQ SCH ×2 (08:36→20:25)
[2022-12-12] MEDS: PIPERACILLIN-TAZOBACTAM 3.375 GM in SODIUM CHLORIDE 0.9% 100 ML IVPB SCH ×3 (08:36→23:44)
[2022-12-12] MEDS: INSULIN ASPART (NovoLOG) 100 UNIT/ML VIAL SQ SCH ×4 (08:36→20:26)
[2022-12-12] MEDS: NON FORMULARY DRUG (Mirabegron [Myrbetriq] 50 MG Tab.Er.24h) PO SCH (08:37)
[2022-12-12] MEDS: SERTRALINE 25 MG TAB PO SCH (08:37)
[2022-12-12] MEDS: DEXTROSE 5% IN WATER 1,000 ML IV SCH (08:42)
[2022-12-12 09:01] LABS: African American GFR (CKD) 53 (>60 ml/min/1.73 sqM); Anion Gap 8 mmol/L; Blood Urea Nitrogen 43 mg/dL (9-20); Calcium 7.7 mg/dL (8.4-10.2); Carbon Dioxide 20 mmol/L (22-30); Chloride 110 mmol/L (98-107); Glucose 82 mg/dL (74-99); Non-African American GFR(CKD) 46 (>60 ml/min/1.73 sqM); Potassium 3.7 mmol/L (3.5-5.1); Sodium 138 mmol/L (137-145)
[2022-12-12 09:09] LABS: HCT 32.2 % (39.0-53.0); HGB 10.4 gm/dL (13.0-17.5); MCH 31.7 pg (25.0-35.0); MCHC 32.5 g/dL (31.0-37.0); MCV 97.6 fL (80.0-100.0); Mean Platelet Volume 9.8; Platelet Count 160 k/uL (150-450); RBC 3.29 m/uL (4.30-5.90); RDW 13.4 % (11.5-15.5); WBC 14.4 k/uL (3.8-10.6)
[2022-12-12 10:19] LABS: Band Neutrophils % 1 %; Eosinophils # (M) 0.43 k/uL (0-0.7); Lymphocytes # (M) 1.73 k/uL (1.0-4.8); Metamyelocytes # (M) 0.29 k/uL (0); Metamyelocytes % 2 %; Monocytes # (M) 0.86 k/uL (0-1.0); Myelocytes # (M) 0.58 k/uL (0); Myelocytes % 4 %; Neutrophils % (M) 74 %; Nucleated Red Blood Cells 0 /100 WBC (0-0); Total Cells Counted 200
[2022-12-12 10:20] LABS: RBC Morphology Normal
--- NOTE | 2022-12-12 10:58 | P.PN ---
Subjective Progress Note Date: 12/12/22 This is a 77-year-old male patient with a history of chronic obstructive pulmonary disease, former smoker, daily alcohol use, gastroesophageal reflux disease, hypertension, hyperlipidemia, neuromuscular dysfunction and the bladder,, previous thoracic aortic aneurysm repair for aortic valve repair. He does have a history of bilateral inguinal hernias and was having issues with abdominal pain and was found to have an incarcerated hernia was transferred from [facility] to here for surgical evaluation. He was also having concern is also having complaints of increasing shortness of breath. Chest x-ray revealed no acute pulmonary process. He states he quit smoking in March 2022. He is not on home oxygen. He is on DuoNeb inhalations and Combivent inhaler in the outpatient setting. He is seen today in consultation. He is currently maintaining O2 saturations in the 90s on room air. He's afebrile. Hemodynamically stable. White count 18.5. Hemoglobin 11.0. Platelets 154. Sodium 137. Potassium 4.7. Bicarb 25. BUN 71. Creatinine 2.21. Glucose 130. Influenza screen negative. RSV screen negative. COVID-19 screen negative. The patient is seen today 12/08/2022 in follow-up on the regular medical floor. He is currently sitting up having breakfast. Awake and alert in no acute distress. He is maintaining good O2 saturations in the 90s on room air. His FEV1 value is 0.53 L which is 20% of predicted. Gold stage IV COPD. He is breathing easier today compared to yesterday. He had been initiated on Pulmicort and Perforomist inhalations, DuoNeb inhalations, IV Solu-Medrol. Antibiotics in the form of Zosyn. Heparin for DVT prophylaxis. Currently in the CIWA protocol. No Ativan required. Plan is for surgical intervention regarding incarcerated hernia tomorrow. White count 11.9. Hemoglobin 9.5. Platelets 146. Sodium 142. Potassium 4.7. Bicarb 23. BUN 51. Creatinine 2.1. Glucose 157. Pro-calcitonin was 1.29. The patient is seen today 12/09/2022 in follow-up on the regular medical floor. He is resting in bed. Awake alert no acute distress. Continues to breathe easier each day. Denies any worsening shortness of breath, cough or congestion. 18 in good O2 saturations in the 90s on room air. He's afebrile. Hemodynamically stable. White count 14.2. Hemoglobin 10.2. Platelets 160. Sodium 140. Potassium 4.3. I curb 18. BUN 32. Creatinine 1.8. He is continued on Zosyn. Remains on bronchodilators, steroids. Normal saline at 50 MLS per hour. Plan is for surgical repair of his inguinal hernia today. The patient is seen today 12/10/2022 in follow-up on the regular medical floor. He is resting comfortably in bed. Awake and alert in no acute distress. Maintaining O2 saturations in the 90s on 2 L/m per nasal cannula. D5W at 50 MLS per hour. He did undergo bilateral hernia repair. Postoperative day #1. Tolerated procedure well. He is continued on DuoNeb inhalations, Pulmicort and Perforomist inhalations, IV Solu-Medrol. Antibiotics in the form of Zosyn. Heparin for DVT prophylaxis. White count 12.9. Hemoglobin 10.4. Platelets 156. Sodium 146. Potassium 4.4. Bicarb 23. BUN 34. Creatinine 1.8. Glucose 116. The patient is seen today 12/11/2022 in follow-up on the regular medical floor. He is awake and alert in no acute distress. He is maintaining good O2 saturation in the mid 90s on 2 L nasal cannula. He continues to work well with the incentive spirometer. He is afebrile. Hemodynamically stable. Blood cultures reveal no growth. Glucose 139. He is continued on DuoNeb inhalations, Symbicort, Solu-Medrol. Antibiotics in the form of Zosyn. Heparin for DVT prophylaxis. The patient is seen today 12/12/2022 in follow-up on the regular medical floor. He sitting up in bed. Awake and alert in no acute distress. Maintaining good O2 saturations in the 90s on 2 L/m per nasal cannula. He has D5W of 50 ML's per hour. He is on antibiotics in the form of Zosyn. He is continued on Symbicort and DuoNeb inhalations. He is working well with the incentive spirometer. Blood cultures revealed no growth. White count 14.4. Hemoglobin 10.4. Platelets and 60. Sodium 138. Potassium 3.7. Bicarb 20. BUN 43. Creatinine 1.48. He remains on DuoNeb inhalations, Symbicort, prednisone taper. Heparin for DVT prophylaxis. Objective - Vital Signs Vital signs: Vital Signs Temp 98.2 F 12/12/22 07:18 Pulse 100 12/12/22 08:02 Resp 18 12/12/22 07:18 BP 142/73 12/12/22 07:18 Pulse Ox 98 12/12/22 07:49 FiO2 Intake & Output 12/11/22 12/12/22 12/12/22 18:59 06:59 18:59 Intake Total 900 740 Output Total 850 600 Balance 50 140 Intake: Intake, IV Titration 500 Amount Dextrose 5% in Water 1, 400 000 ml @ 50 mls/hr IV . Q20H HOME Rx#:[id number] Piperacillin-Tazobactam 3 100 .375 gm In Sodium Chloride 0.9% 100 ml @ 25 mls/hr IVPB Q8HR HOME Rx# :[id number] Oral 900 240 Output: Urine 850 600 Other: Voiding Method Indwelling Catheter Indwelling Catheter Indwelling Catheter - Exam GENERAL EXAM: Alert, very pleasant 77-year-old male, on 2 L nasal cannula, comfortable in no apparent distress. HEAD: Normocephalic. EYES: Normal reaction of pupils, equal size. NOSE: Clear with pink turbinates. THROAT: Edentulous. No erythema or exudates. NECK: No masses, no JVD. CHEST: No chest wall deformity. LUNGS: Equal air entry with a faint end expiratory wheeze, diminished. CVS: S1 and S2 normal with no audible murmur, regular rhythm. ABDOMEN: No hepatosplenomegaly, normal bowel sounds, no guarding or rigidity. SPINE: No scoliosis or deformity SKIN: No rashes CENTRAL NERVOUS SYSTEM: No focal deficits, tone is normal in all 4 extremities. EXTREMITIES: Bilateral inguinal surgical sites clean and dry. There is no peripheral edema. No clubbing, no cyanosis. Peripheral pulses are intact. - Labs CBC & Chem 7: 12/12/22 07:38 12/12/22 07:31 Labs: Abnormal Lab Results - Last 24 Hours (Table) 12/11/22 12/11/22 12/11/22 Range/Units 12:31 17:37 20:43 WBC (3.8-10.6) k/uL RBC (4.30-5.90) m/uL Hgb (13.0-17.5) gm/dL Hct (39.0-53.0) % Neutrophils # (Manual) (1.3-7.7) k/uL Metamyelocytes # (Man) (0) k/uL Myelocytes # (Manual) (0) k/uL Chloride (98-107) mmol/L Carbon Dioxide (22-30) mmol/L BUN (9-20) mg/dL Creatinine (0.66-1.25) mg/dL POC Glucose (mg/dL) 256 H 215 H 234 H (70-110) mg/dL Calcium (8.4-10.2) mg/dL 12/12/22 12/12/22 Range/Units 07:31 07:38 WBC 14.4 H (3.8-10.6) k/uL RBC 3.29 L (4.30-5.90) m/uL Hgb 10.4 L (13.0-17.5) gm/dL Hct 32.2 L (39.0-53.0) % Neutrophils # (Manual) 10.80 H (1.3-7.7) k/uL Metamyelocytes # (Man) 0.29 H (0) k/uL Myelocytes # (Manual) 0.58 H (0) k/uL Chloride 110 H (98-107) mmol/L Carbon Dioxide 20 L (22-30) mmol/L BUN 43 H (9-20) mg/dL Creatinine 1.48 H (0.66-1.25) mg/dL POC Glucose (mg/dL) (70-110) mg/dL Calcium 7.7 L (8.4-10.2) mg/dL Microbiology - Last 24 Hours (Table) 12/06/22 19:45 Blood Culture - Final Blood 12/06/22 19:30 Blood Culture - Final Blood Assessment and Plan Assessment: Abdominal pain secondary to incarcerated inguinal hernias, right greater than left. Status post bilateral hernia repairs. Postoperative day #3. Acute exacerbation of chronic obstructive pulmonary disease. FEV1 value 0.53 L, 20% of predicted History of greater than 50 years smoking, quit March 2022 Acute kidney injury, diuretics have been held History of previous heavy alcohol use History of neurogenic bladder History of thoracic aortic aneurysm/aortic valve repair at [facility] May 2018 Hypertension Hyperlipidemia History of depression Plan: The patient was seen and evaluated Labs and medications reviewed Continue Symbicort, DuoNebs, prednisone taper Working with the incentive spirometer Titrate down the FiO2 as tolerated Increase his activity as tolerated Cleared for discharge from the pulmonary standpoint I have personally seen and examined the patient, performed the documentation and the assessment and plan as written. Number of minutes spent on the visit: 10.
[2022-12-12 12:19] LABS: Glucose,Whole Blood 137 mg/dL (70-110)
--- NOTE | 2022-12-12 14:01 | P.PN ---
Subjective Progress Note Date: 12/12/22 Follow-up for acute kidney injury. Objective - Vital Signs Vital signs: Vital Signs Temp 98.2 F 12/12/22 07:18 Pulse 100 12/12/22 11:28 Resp 18 12/12/22 07:18 BP 142/73 12/12/22 07:18 Pulse Ox 98 12/12/22 07:49 FiO2 Intake & Output 12/11/22 12/12/22 12/12/22 18:59 06:59 18:59 Intake Total 900 740 Output Total 850 600 Balance 50 140 Intake: Intake, IV Titration 500 Amount Dextrose 5% in Water 1, 400 000 ml @ 50 mls/hr IV . Q20H HOME Rx#:[id number] Piperacillin-Tazobactam 3 100 .375 gm In Sodium Chloride 0.9% 100 ml @ 25 mls/hr IVPB Q8HR [facility] Rx# :[id number] Oral 900 240 Output: Urine 850 600 Other: Voiding Method Indwelling Catheter Indwelling Catheter Indwelling Catheter - Exam No acute distress S1-S2 heard Lungs clear No edema - Labs CBC & Chem 7: 12/12/22 07:38 12/12/22 07:31 Labs: Abnormal Lab Results - Last 24 Hours (Table) 12/11/22 12/11/22 12/12/22 Range/Units 17:37 20:43 07:31 WBC (3.8-10.6) k/uL RBC (4.30-5.90) m/uL Hgb (13.0-17.5) gm/dL Hct (39.0-53.0) % Neutrophils # (Manual) (1.3-7.7) k/uL Metamyelocytes # (Man) (0) k/uL Myelocytes # (Manual) (0) k/uL Chloride 110 H (98-107) mmol/L Carbon Dioxide 20 L (22-30) mmol/L BUN 43 H (9-20) mg/dL Creatinine 1.48 H (0.66-1.25) mg/dL POC Glucose (mg/dL) 215 H 234 H (70-110) mg/dL Calcium 7.7 L (8.4-10.2) mg/dL 12/12/22 12/12/22 Range/Units 07:38 12:18 WBC 14.4 H (3.8-10.6) k/uL RBC 3.29 L (4.30-5.90) m/uL Hgb 10.4 L (13.0-17.5) gm/dL Hct 32.2 L (39.0-53.0) % Neutrophils # (Manual) 10.80 H (1.3-7.7) k/uL Metamyelocytes # (Man) 0.29 H (0) k/uL Myelocytes # (Manual) 0.58 H (0) k/uL Chloride (98-107) mmol/L Carbon Dioxide (22-30) mmol/L BUN (9-20) mg/dL Creatinine (0.66-1.25) mg/dL POC Glucose (mg/dL) 137 H (70-110) mg/dL Calcium (8.4-10.2) mg/dL Microbiology - Last 24 Hours (Table) 12/06/22 19:45 Blood Culture - Final Blood 12/06/22 19:30 Blood Culture - Final Blood Assessment and Plan Assessment: #1 acute kidney injury secondary to hemodynamic ATN. -Baseline creatinine 1.5 MG per DL -Admission creatinine 2.1 MG per DL. -Renal ultrasound left renal complex cyst and mild hydronephrosis #2 chronic kidney disease stage IIIB with a baseline creatinine of 1.5 MG per DL. #3 chronic diastolic CHF #4 bilateral abdominal hernia status post repair Plan: #1 renal function close to baseline. #2 avoid nephrotoxic agents and hypotensive episodes #3 follow-up for complex cyst as outpatient with urology
--- NOTE | 2022-12-12 14:15 | P.PN ---
Subjective Progress Note Date: 12/12/22 Principal diagnosis: Reports appropriate post-surgical swelling but no recurrent hernia. PLAN: 1. Reviewed with patient that seroma will occur especially with shift of fluid balance, 2. Also may benefit from Trus to decrease fluid/seroma Objective - Vital Signs Vital signs: Vital Signs Temp 98.2 F 12/12/22 07:18 Pulse 100 12/12/22 11:28 Resp 18 12/12/22 07:18 BP 142/73 12/12/22 07:18 Pulse Ox 98 12/12/22 07:49 FiO2 Intake & Output 12/11/22 12/12/22 12/12/22 18:59 06:59 18:59 Intake Total 900 740 Output Total 850 600 Balance 50 140 Intake: Intake, IV Titration 500 Amount Dextrose 5% in Water 1, 400 000 ml @ 50 mls/hr IV . Q20H HOME Rx#:[id number] Piperacillin-Tazobactam 3 100 .375 gm In Sodium Chloride 0.9% 100 ml @ 25 mls/hr IVPB Q8HR [facility] Rx# :[id number] Oral 900 240 Output: Urine 850 600 Other: Voiding Method Indwelling Catheter Indwelling Catheter Indwelling Catheter - Labs CBC & Chem 7: 12/12/22 07:38 12/12/22 07:31 Labs: Abnormal Lab Results - Last 24 Hours (Table) 12/11/22 12/11/22 12/12/22 Range/Units 17:37 20:43 07:31 WBC (3.8-10.6) k/uL RBC (4.30-5.90) m/uL Hgb (13.0-17.5) gm/dL Hct (39.0-53.0) % Neutrophils # (Manual) (1.3-7.7) k/uL Metamyelocytes # (Man) (0) k/uL Myelocytes # (Manual) (0) k/uL Chloride 110 H (98-107) mmol/L Carbon Dioxide 20 L (22-30) mmol/L BUN 43 H (9-20) mg/dL Creatinine 1.48 H (0.66-1.25) mg/dL POC Glucose (mg/dL) 215 H 234 H (70-110) mg/dL Calcium 7.7 L (8.4-10.2) mg/dL 12/12/22 12/12/22 Range/Units 07:38 12:18 WBC 14.4 H (3.8-10.6) k/uL RBC 3.29 L (4.30-5.90) m/uL Hgb 10.4 L (13.0-17.5) gm/dL Hct 32.2 L (39.0-53.0) % Neutrophils # (Manual) 10.80 H (1.3-7.7) k/uL Metamyelocytes # (Man) 0.29 H (0) k/uL Myelocytes # (Manual) 0.58 H (0) k/uL Chloride (98-107) mmol/L Carbon Dioxide (22-30) mmol/L BUN (9-20) mg/dL Creatinine (0.66-1.25) mg/dL POC Glucose (mg/dL) 137 H (70-110) mg/dL Calcium (8.4-10.2) mg/dL Microbiology - Last 24 Hours (Table) 12/06/22 19:45 Blood Culture - Final Blood 12/06/22 19:30 Blood Culture - Final Blood
[2022-12-12 17:42] LABS: Glucose,Whole Blood 241 mg/dL (70-110)
--- NOTE | 2022-12-12 18:15 | P.PN ---
Subjective Progress Note Date: 12/12/22 Principal diagnosis: Leukocytosis and bowel obstruction Patient is a 77-year-old male with a past medical his significant for hypertension hyperlipidemia reflux COPD presenting to the hospital for abdominal pain apparently the patient presented to outside hospital initially with the patient will be diagnosed with small bowel obstruction secondary to a hernia and patient has been transferred to this facility for further management.Patient did have evidence of incarcerated bilateral inguinal hernia sac however no mention of any incarcerated bowel perforation on operative report in this patient who is status post operative repair on 12/09/2022 on today's evaluation that is 12/12/2022, the patient continues to be afebrile, the patient is breathing comfortably on 2 L nasal cannula oxygen, the patient denies any shortness of breath no chest pain or cough, the patient denies having any nausea and vomiting no abdominal pain and no diarrhea Patient white count is slightly up to 14.4 today, creatinine is 1.48 Objective - Vital Signs Vital signs: Vital Signs Temp 98.4 F 12/12/22 14:48 Pulse 102 H 12/12/22 15:26 Resp 19 12/12/22 14:48 BP 136/74 12/12/22 14:48 Pulse Ox 96 12/12/22 14:48 FiO2 Intake & Output 12/11/22 12/12/22 12/12/22 18:59 06:59 18:59 Intake Total 900 740 Output Total 850 600 Balance 50 140 Intake: Intake, IV Titration 500 Amount Dextrose 5% in Water 1, 400 000 ml @ 50 mls/hr IV . Q20H HOME Rx#:[id number] Piperacillin-Tazobactam 3 100 .375 gm In Sodium Chloride 0.9% 100 ml @ 25 mls/hr IVPB Q8HR HOME Rx# :[id number] Oral 900 240 Output: Urine 850 600 Other: Voiding Method Indwelling Catheter Indwelling Catheter Indwelling Catheter - Exam GENERAL DESCRIPTION: An elderly male lying in bed in no distress RESPIRATORY SYSTEM: Unlabored breathing , decreased breath sounds at bases HEART: S1 S2 regular rate and rhythm , ABDOMEN: Soft , mild distention but tenderness EXTREMITIES: No edema feet - Labs CBC & Chem 7: 12/12/22 07:38 12/12/22 07:31 Labs: Abnormal Lab Results - Last 24 Hours (Table) 12/11/22 12/11/22 12/12/22 Range/Units 17:37 20:43 07:31 WBC (3.8-10.6) k/uL RBC (4.30-5.90) m/uL Hgb (13.0-17.5) gm/dL Hct (39.0-53.0) % Neutrophils # (Manual) (1.3-7.7) k/uL Metamyelocytes # (Man) (0) k/uL Myelocytes # (Manual) (0) k/uL Chloride 110 H (98-107) mmol/L Carbon Dioxide 20 L (22-30) mmol/L BUN 43 H (9-20) mg/dL Creatinine 1.48 H (0.66-1.25) mg/dL POC Glucose (mg/dL) 215 H 234 H (70-110) mg/dL Calcium 7.7 L (8.4-10.2) mg/dL 12/12/22 12/12/22 Range/Units 07:38 12:18 WBC 14.4 H (3.8-10.6) k/uL RBC 3.29 L (4.30-5.90) m/uL Hgb 10.4 L (13.0-17.5) gm/dL Hct 32.2 L (39.0-53.0) % Neutrophils # (Manual) 10.80 H (1.3-7.7) k/uL Metamyelocytes # (Man) 0.29 H (0) k/uL Myelocytes # (Manual) 0.58 H (0) k/uL Chloride (98-107) mmol/L Carbon Dioxide (22-30) mmol/L BUN (9-20) mg/dL Creatinine (0.66-1.25) mg/dL POC Glucose (mg/dL) 137 H (70-110) mg/dL Calcium (8.4-10.2) mg/dL Microbiology - Last 24 Hours (Table) 12/06/22 19:45 Blood Culture - Final Blood 12/06/22 19:30 Blood Culture - Final Blood Assessment and Plan (1) Incarcerated inguinal hernia, bilateral Current Visit: Yes Status: Acute Code(s): K40.00 - BI INGUINAL HERNIA, W OBST, W/O GANGRENE, NOT SPCF RECUR SNOMED Code(s): 078977576 (2) Leukocytosis Current Visit: Yes Status: Acute Code(s): D72.829 - ELEVATED WHITE BLOOD CELL COUNT, UNSPECIFIED SNOMED Code(s): 675148652 Plan: 1patient present hospital abdominal pain in this patient has been diagnosed small bowel obstruction outside facility secondary to hernia, in this patient with evidence of elevated white count abdominal distention , patient did have evidence of incarcerated bilateral inguinal hernia status post operative repair with no mention of any incarcerated bowel or perforation 2patient with elixir doses possible steroid related and will monitor closely, 3-patient to continue with Zosyn 3.375 g every 8 hours and continue supportive care Dictation was produced using [employer] dictation software. please excuse any grammatical, word or spelling errors. Time with Patient: Less than 30
[2022-12-12 19:46] LABS: Glucose,Whole Blood 140 mg/dL (70-110)
[2022-12-12] MEDS: TAMSULOSIN 0.4 MG CAP.ER.24H PO SCH (20:26)
[2022-12-12] MEDS: IPRATROPIUM-ALBUTEROL 3 ML NEB INHALATION PRN (22:26)
--- NOTE | 2022-12-13 04:49 | PN ---
PROGRESS NOTE DATE OF SERVICE: 12/12/2022 SUBJECTIVE: This is a 77-year-old gentleman, who was admitted after bilateral inguinal hernia surgery, is improving significantly. No chest pain. No palpitation. OBJECTIVE: VITAL SIGNS: Pulse is 100, blood pressure 140/70, respirations 18. CHEST: Clear to auscultation. CARDIOVASCULAR: S1, S2. ABDOMEN: Soft, bilateral inguinal hernia, status post surgery. LABORATORY DATA: Reviewed. ASSESSMENT: 1. Bilateral inguinal hernia with incarceration as well as small bowel obstruction, status post laparoscopic repair. 2. Right complex kidney cyst for outpatient followup. 3. Aortic dissection, stable. 4. Increased WBC. 5. Chronic obstructive pulmonary disease. 6. History of EtOH. 7. Multiple medical issues. RECOMMENDATIONS: Recommend to continue current medical management. Continue symptomatic treatment. Continue with antibiotics. Recommend repeat labs tomorrow. Closely follow with Surgery and Infectious Disease. Possible ECF rehab tomorrow at [facility]. MMODL / IJN: [id number] /
[2022-12-13] MEDS: DEXTROSE 5% IN WATER 1,000 ML IV SCH ×2 (05:02→23:37)
[2022-12-13 07:06] LABS: Glucose,Whole Blood 100 mg/dL (70-110)
[2022-12-13] MEDS: IPRATROPIUM-ALBUTEROL 3 ML NEB INHALATION SCH ×4 (07:21→19:12)
[2022-12-13] MEDS: SYMBICORT 160-4.5 MCG INHALER INHALATION SCH ×2 (07:22→19:12)
[2022-12-13] MEDS: INSULIN ASPART (NovoLOG) 100 UNIT/ML VIAL SQ SCH ×4 (07:36→20:32)
--- NOTE | 2022-12-13 07:58 | CDI ---
Documentation Clarification Form Date: 12/13/2022 07:30:16 AM From: Mulu Singleton RN CCDS Phone: [phone] Admit Date: 12/08/2022 07:54:00 AM Patient Name: Doug Pemberton Visit Number: [id number] Discharge Date: ATTENTION: The Clinical Documentation Specialists (CDI) and [facility] Coding Staff appreciate your assistance in clarifying documentation. Please respond to the clarification below the line at the bottom and electronically sign. The CDI & [facility] Coding staff will review the response and follow-up if needed. Please note: Queries are made part of the Legal Health Record. If you have any questions, please contact the author of this message via ITS. Dr. Back Bilateral heel stage one pressure ulcers and Left buttock stage one pressure ulcer is documented by Nursing, 12/09 thru 12/13 in Pressure Injury Assessment. Based on this information and the findings below, is there an additional diagnosis that is clinically appropriate for this patient? History/Risk Factors:77-year-old male presents to the ED via EMS as transfer from [facility] for bowel obstruction. Medical history: COPD, CHF, HTN, CKD 3, Pressure ulcers and COPD. 12/06, ED Note. Clinical Indicators: Location: Bilateral Heels Wound description: Erythema Treatment: Elevated off bed with pillow Is there an additional diagnosis that is clinically appropriate for this patient? [ ] Bilateral heel Pressure Ulcer Stage 2 POA [ ] Other condition, please specify [ ] Unable to determine Is there an additional diagnosis that is clinically appropriate for this patient? Clinical Indicators: Location: Left Buttock Wound description: Erythema Treatment: Turn 2QHR, Off loading [ ] Left Buttock Stage 1 POA [ ] Other condition, please specify [ ] Unable to determine Clinical Definitions: Stage 1 Pressure Ulcer: intact skin, non-blanching redness of local area Stage 2 Pressure Ulcer: Partial thickness, loss of dermis, pink wound bed Stage 3 Pressure Ulcer: Full thickness tissue loss Stage 4 Pressure Ulcer: Full thickness tissue loss with exposed bone, tendon, or muscle. Unstageable pressure ulcer: Full thickness tissue loss in which the base of the ulcer is covered by slough (yellow, hand, diaz, green or brown) and/or eschar (hand, brown or black) in the wound bed. Documented in the medicine note 12/13 Lucas Campos DESIGN LEADER: stage II pressure ulcer, bilateral heels, present on admission Stage I pressure ulcer on the left buttock, present on admission (Template Last Revised: June 2020) MTDD
[2022-12-13] MEDS: PIPERACILLIN-TAZOBACTAM 3.375 GM in SODIUM CHLORIDE 0.9% 100 ML IVPB SCH ×3 (08:05→23:37)
[2022-12-13] MEDS: THIAMINE 100 MG TAB PO SCH (08:06)
[2022-12-13] MEDS: SERTRALINE 25 MG TAB PO SCH (08:06)
[2022-12-13] MEDS: predniSONE 20 MG TAB PO SCH (08:06)
[2022-12-13] MEDS: HEPARIN SODIUM,PORCINE 5,000 UNIT/ML 1 ML VIAL SQ SCH ×2 (08:06→20:32)
[2022-12-13] MEDS: DOCUSATE 100 MG CAP PO SCH ×2 (08:06→20:17)
[2022-12-13] MEDS: METOPROLOL SUCCINATE (ER) 25 MG TAB.ER.24H PO SCH (08:06)
[2022-12-13] MEDS: SODIUM BICARBONATE TAB 650 MG TAB PO SCH ×2 (08:06→20:32)
[2022-12-13] MEDS: NON FORMULARY DRUG (Mirabegron [Myrbetriq] 50 MG Tab.Er.24h) PO SCH (08:07)
[2022-12-13 08:58] LABS: Blood Urea Nitrogen 35.2 mg/dL (9.0-27.0); Calcium 7.7 mg/dL (8.7-10.3); Carbon Dioxide 22.9 mmol/L (21.6-31.8); Chloride 106 mmol/L (96-109); Glucose 68 mg/dL (70-110); Potassium 3.9 mmol/L (3.5-5.5); Sodium 141 mmol/L (135-145)
[2022-12-13 09:11] LABS: HGB 10.1 d/dL (12.0-17.0); MCH 30.7 pg (27.0-32.0); MCHC 31.6 d/dL (32.0-37.0); MCV 97.3 FL (80.0-97.0); Mean Platelet Volume 11.3 FL (9.5-12.2); NRBC Per 100 WBC 0.02 X 10*3/uL (0.00-0.01); Platelet Count 182 X 10*3/uL (140-440); RBC 3.29 X 10*6/uL (4.10-5.60); RDW 13.7 % (11.5-14.5); WBC 16.21 X 10*3/uL (4.50-10.00)
[2022-12-13 10:05] LABS: Basophils # (M) 0 X 10*3/uL (0.00-0.10); Neutrophils % (M) 71 %
[2022-12-13 10:06] LABS: Eosinophils # (M) 0.81 X 10*3/uL (0.04-0.35); Lymphocytes # (M) 1.46 X 10*3/uL (0.90-5.00); Metamyelocytes % 4 % (0-0); Monocytes # (M) 1.13 X 10*3/uL (0.20-1.00); Myelocytes % 4 % (0-0); Neutrophils # (M) 11.51 X 10*3/uL (1.80-7.70); RBC Morphology Normal (Normal)
--- NOTE | 2022-12-13 11:46 | P.PN ---
Subjective Progress Note Date: 12/13/22 CHIEF COMPLAINT: Incarcerated inguinal hernia HISTORY OF PRESENT ILLNESS: Patient is postop day #4 status post Robotic- assisted reduction repair of incarcerated left and right inguinal hernias with mesh. Patient is sitting up in bedside chair. He reports his pain is controlled. He does appear short of breath but he just finished ambulating the hallway. Afebrile. WBC 14 up to 16. Patient is on steroids. PHYSICAL EXAM: VITAL SIGNS: Reviewed GENERAL: Well-developed in no acute distress. HEENT: No sclera icterus. Extraocular movements grossly intact. Moist buccal mucosa. Head is atraumatic, normocephalic. Hears conversational speech. No nasal drainage. NECK: Supple without lymphadenopathy. CHEST: Non-labored respirations and equal bilateral excursions. CARDIOVASCULAR: Palpable 2+ radial pulses. ABDOMEN: Soft. Nondistended. MUSCULOSKELETAL: No clubbing or cyanosis. NEUROLOGIC: No focal or lateralizing signs. Cranial nerves II through XII grossly intact. PSYCH: Appropriate affect. Alert and oriented to person, place and time. SKIN: Well perfused. Good skin turgor. ASSESSMENT: 1. Initial left inguinal hernia, incarcerated with sigmoid colon bowel obstruction 2. Initial right inguinal hernia, incarcerated with small bowel bowel obstruction 3. Moderate to severe sigmoid diverticulosis 4. COPD 5. Acute on chronic renal failure 6. History of thoracic aortic aneurysm 7. History of EtOH use 8. Seroma at surgical site PLAN: -Patient can be discharged surgical standpoint when medically cleared -Continue low fiber diet -Would recommend Trus to decrease fluids/seroma. Unfortunately there is no Trus available -Continue pain management -Encouraged patient to increase activity level -DVT prophylaxis subcu heparin Physician Chemical Sales Representative note has been reviewed by physician. Signing provider agrees with the documented findings, assessment, and plan of care. Objective - Vital Signs Vital signs: Vital Signs Temp 98.6 F 12/13/22 07:02 Pulse 100 12/13/22 07:38 Resp 18 12/13/22 07:02 BP 148/75 12/13/22 07:02 Pulse Ox 100 12/13/22 07:02 FiO2 Intake & Output 12/12/22 12/13/22 12/13/22 18:59 06:59 18:59 Intake Total 240 Output Total 1500 1200 Balance -1500 -960 Intake: Oral 240 Output: Urine 1500 1200 Other: Voiding Method Indwelling Catheter Indwelling Catheter Indwelling Catheter # Bowel Movements 1 - Labs CBC & Chem 7: 12/13/22 05:25 12/13/22 05:25 Labs: Abnormal Lab Results - Last 24 Hours (Table) 12/12/22 12/12/22 12/12/22 Range/Units 07:38 12:18 17:41 WBC (4.50-10.00) X 10*3/uL RBC (4.10-5.60) X 10*6/uL Hgb (12.0-17.0) d/dL Hct (37.2-50.0) % MCV (80.0-97.0) FL MCHC (32.0-37.0) d/dL Neutrophils # (Manual) 10.80 H (1.3-7.7) k/uL Monocytes # (Manual) (0.20-1.00) X 10*3/uL Eosinophils # (Manual) (0.04-0.35) X 10*3/uL Metamyelocytes # (Man) 0.29 H (0) k/uL Myelocytes # (Manual) 0.58 H (0) k/uL NRBC/100 WBC Diff (0.00-0.01) X 10*3/uL Anion Gap (4.00-12.00) mmol/L BUN (9.0-27.0) mg/dL Creatinine (0.6-1.5) mg/dL Est GFR (CKD-EPI) (>=60) BUN/Creatinine Ratio (12.00-20.00) Ratio Glucose (70-110) mg/dL POC Glucose (mg/dL) 137 H 241 H (70-110) mg/dL Calcium (8.7-10.3) mg/dL Procalcitonin (0.02-0.09) ng/mL 12/12/22 12/13/22 12/13/22 Range/Units 19:45 05:25 05:25 WBC 16.21 H (4.50-10.00) X 10*3/uL RBC 3.29 L (4.10-5.60) X 10*6/uL Hgb 10.1 L (12.0-17.0) d/dL Hct 32.0 L (37.2-50.0) % MCV 97.3 H (80.0-97.0) FL MCHC 31.6 L (32.0-37.0) d/dL Neutrophils # (Manual) (1.3-7.7) k/uL Monocytes # (Manual) 1.13 H (0.20-1.00) X 10*3/uL Eosinophils # (Manual) 0.81 H (0.04-0.35) X 10*3/uL Metamyelocytes # (Man) (0) k/uL Myelocytes # (Manual) (0) k/uL NRBC/100 WBC Diff 0.02 H (0.00-0.01) X 10*3/uL Anion Gap (4.00-12.00) mmol/L BUN (9.0-27.0) mg/dL Creatinine (0.6-1.5) mg/dL Est GFR (CKD-EPI) (>=60) BUN/Creatinine Ratio (12.00-20.00) Ratio Glucose (70-110) mg/dL POC Glucose (mg/dL) 140 H (70-110) mg/dL Calcium (8.7-10.3) mg/dL Procalcitonin 0.19 H (0.02-0.09) ng/mL 12/13/22 Range/Units 05:25 WBC (4.50-10.00) X 10*3/uL RBC (4.10-5.60) X 10*6/uL Hgb (12.0-17.0) d/dL Hct (37.2-50.0) % MCV (80.0-97.0) FL MCHC (32.0-37.0) d/dL Neutrophils # (Manual) (1.3-7.7) k/uL Monocytes # (Manual) (0.20-1.00) X 10*3/uL Eosinophils # (Manual) (0.04-0.35) X 10*3/uL Metamyelocytes # (Man) (0) k/uL Myelocytes # (Manual) (0) k/uL NRBC/100 WBC Diff (0.00-0.01) X 10*3/uL Anion Gap 12.10 H (4.00-12.00) mmol/L BUN 35.2 H (9.0-27.0) mg/dL Creatinine 1.6 H (0.6-1.5) mg/dL Est GFR (CKD-EPI) 45 L (>=60) BUN/Creatinine Ratio 22.00 H (12.00-20.00) Ratio Glucose 68 L (70-110) mg/dL POC Glucose (mg/dL) (70-110) mg/dL Calcium 7.7 L (8.7-10.3) mg/dL Procalcitonin (0.02-0.09) ng/mL
[2022-12-13 11:52] LABS: Glucose,Whole Blood 123 mg/dL (70-110)
--- NOTE | 2022-12-13 12:42 | P.PN ---
Subjective Progress Note Date: 12/13/22 Principal diagnosis: Leukocytosis and bowel obstruction Patient is a 77-year-old male with a past medical his significant for hypertension hyperlipidemia reflux COPD presenting to the hospital for abdominal pain apparently the patient presented to outside hospital initially with the patient will be diagnosed with small bowel obstruction secondary to a hernia and patient has been transferred to this facility for further management.Patient did have evidence of incarcerated bilateral inguinal hernia sac however no mention of any incarcerated bowel perforation on operative report in this patient who is status post operative repair on 12/09/2022 on today's evaluation that is 12/13/2022, the patient remains to be afebrile, the patient is breathing comfortably on 3 L Oxygen, the patient denies having any chest pain or any worsening cough, the patient denies nausea and vomiting constipation abdominal pain is currently controlled and no diarrhea Patient white count is slightly up to 16.21, creatinine is 1.6, procalcitonin is down to 0.19, CRP 0.60 Objective - Vital Signs Vital signs: Vital Signs Temp 98.4 F 12/13/22 11:48 Pulse 94 12/13/22 11:48 Resp 18 12/13/22 11:48 BP 132/67 12/13/22 11:48 Pulse Ox 99 12/13/22 11:48 FiO2 Intake & Output 12/12/22 12/13/22 12/13/22 18:59 06:59 18:59 Intake Total 240 Output Total 1500 1200 Balance -1500 -960 Weight 54.431 kg Intake: Oral 240 Output: Urine 1500 1200 Other: Voiding Method Indwelling Catheter Indwelling Catheter Indwelling Catheter # Bowel Movements 1 - Exam GENERAL DESCRIPTION: An elderly male lying in bed in no distress RESPIRATORY SYSTEM: Unlabored breathing , decreased breath sounds at bases HEART: S1 S2 regular rate and rhythm , ABDOMEN: Soft , mild distention but tenderness EXTREMITIES: No edema feet - Labs CBC & Chem 7: 12/13/22 05:25 12/13/22 05:25 Labs: Abnormal Lab Results - Last 24 Hours (Table) 12/12/22 12/12/22 12/13/22 Range/Units 17:41 19:45 05:25 WBC (4.50-10.00) X 10*3/uL RBC (4.10-5.60) X 10*6/uL Hgb (12.0-17.0) d/dL Hct (37.2-50.0) % MCV (80.0-97.0) FL MCHC (32.0-37.0) d/dL Neutrophils # (Manual) (1.80-7.70) X 10*3/uL Monocytes # (Manual) (0.20-1.00) X 10*3/uL Eosinophils # (Manual) (0.04-0.35) X 10*3/uL NRBC/100 WBC Diff (0.00-0.01) X 10*3/uL Anion Gap (4.00-12.00) mmol/L BUN (9.0-27.0) mg/dL Creatinine (0.6-1.5) mg/dL Est GFR (CKD-EPI) (>=60) BUN/Creatinine Ratio (12.00-20.00) Ratio Glucose (70-110) mg/dL POC Glucose (mg/dL) 241 H 140 H (70-110) mg/dL Calcium (8.7-10.3) mg/dL Procalcitonin 0.19 H (0.02-0.09) ng/mL 12/13/22 12/13/22 12/13/22 Range/Units 05:25 05:25 11:50 WBC 16.21 H (4.50-10.00) X 10*3/uL RBC 3.29 L (4.10-5.60) X 10*6/uL Hgb 10.1 L (12.0-17.0) d/dL Hct 32.0 L (37.2-50.0) % MCV 97.3 H (80.0-97.0) FL MCHC 31.6 L (32.0-37.0) d/dL Neutrophils # (Manual) 11.51 H (1.80-7.70) X 10*3/uL Monocytes # (Manual) 1.13 H (0.20-1.00) X 10*3/uL Eosinophils # (Manual) 0.81 H (0.04-0.35) X 10*3/uL NRBC/100 WBC Diff 0.02 H (0.00-0.01) X 10*3/uL Anion Gap 12.10 H (4.00-12.00) mmol/L BUN 35.2 H (9.0-27.0) mg/dL Creatinine 1.6 H (0.6-1.5) mg/dL Est GFR (CKD-EPI) 45 L (>=60) BUN/Creatinine Ratio 22.00 H (12.00-20.00) Ratio Glucose 68 L (70-110) mg/dL POC Glucose (mg/dL) 123 H (70-110) mg/dL Calcium 7.7 L (8.7-10.3) mg/dL Procalcitonin (0.02-0.09) ng/mL Assessment and Plan (1) Incarcerated inguinal hernia, bilateral Current Visit: Yes Status: Acute Code(s): K40.00 - BI INGUINAL HERNIA, W O BST, W/O GANGRENE, NOT SPCF RECUR SNOMED Code(s): 761003156 (2) Leukocytosis Current Visit: Yes Status: Acute Code(s): D72.829 - ELEVATED WHITE BLOOD CELL COUNT, UNSPECIFIED SNOMED Code(s): 598047985 Plan: 1patient present hospital abdominal pain in this patient has been diagnosed small bowel obstruction outside facility secondary to hernia, in this patient with evidence of elevated white count abdominal distention , patient did have evidence of incarcerated bilateral inguinal hernia status post operative repair with no mention of any incarcerated bowel or perforation 2patient with leukocytosis possible steroid related and the patient did have a normal CRP and procalcitonin is trending down 3-patient to continue with Zosyn 3.375 g every 8 hours and monitor his clinical course closely Dictation was produced using [employer] dictation software. please excuse any grammatical, word or spelling errors. Time with Patient: Less than 30
--- NOTE | 2022-12-13 15:48 | P.PN ---
Subjective Progress Note Date: 12/13/22 This is a 77-year-old male patient with a history of chronic obstructive pulmonary disease, former smoker, daily alcohol use, gastroesophageal reflux disease, hypertension, hyperlipidemia, neuromuscular dysfunction and the bladder,, previous thoracic aortic aneurysm repair for aortic valve repair. He does have a history of bilateral inguinal hernias and was having issues with abdominal pain and was found to have an incarcerated hernia was transferred from [facility] to here for surgical evaluation. He was also having concern is also having complaints of increasing shortness of breath. Chest x-ray revealed no acute pulmonary process. He states he quit smoking in March 2022. He is not on home oxygen. He is on DuoNeb inhalations and Combivent inhaler in the outpatient setting. He is seen today in consultation. He is currently maintaining O2 saturations in the 90s on room air. He's afebrile. Hemodynamically stable. White count 18.5. Hemoglobin 11.0. Platelets 154. Sodium 137. Potassium 4.7. Bicarb 25. BUN 71. Creatinine 2.21. Glucose 130. Influenza screen negative. RSV screen negative. COVID-19 screen negative. The patient is seen today 12/08/2022 in follow-up on the regular medical floor. He is currently sitting up having breakfast. Awake and alert in no acute distress. He is maintaining good O2 saturations in the 90s on room air. His FEV1 value is 0.53 L which is 20% of predicted. Gold stage IV COPD. He is breathing easier today compared to yesterday. He had been initiated on Pulmicort and Perforomist inhalations, DuoNeb inhalations, IV Solu-Medrol. Antibiotics in the form of Zosyn. Heparin for DVT prophylaxis. Currently in the CIWA protocol. No Ativan required. Plan is for surgical intervention regarding incarcerated hernia tomorrow. White count 11.9. Hemoglobin 9.5. Platelets 146. Sodium 142. Potassium 4.7. Bicarb 23. BUN 51. Creatinine 2.1. Glucose 157. Pro-calcitonin was 1.29. The patient is seen today 12/09/2022 in follow-up on the regular medical floor. He is resting in bed. Awake alert no acute distress. Continues to breathe easier each day. Denies any worsening shortness of breath, cough or congestion. 18 in good O2 saturations in the 90s on room air. He's afebrile. Hemodynamically stable. White count 14.2. Hemoglobin 10.2. Platelets 160. Sodium 140. Potassium 4.3. I curb 18. BUN 32. Creatinine 1.8. He is continued on Zosyn. Remains on bronchodilators, steroids. Normal saline at 50 MLS per hour. Plan is for surgical repair of his inguinal hernia today. The patient is seen today 12/10/2022 in follow-up on the regular medical floor. He is resting comfortably in bed. Awake and alert in no acute distress. Maintaining O2 saturations in the 90s on 2 L/m per nasal cannula. D5W at 50 MLS per hour. He did undergo bilateral hernia repair. Postoperative day #1. Tolerated procedure well. He is continued on DuoNeb inhalations, Pulmicort and Perforomist inhalations, IV Solu-Medrol. Antibiotics in the form of Zosyn. Heparin for DVT prophylaxis. White count 12.9. Hemoglobin 10.4. Platelets 156. Sodium 146. Potassium 4.4. Bicarb 23. BUN 34. Creatinine 1.8. Glucose 116. The patient is seen today 12/11/2022 in follow-up on the regular medical floor. He is awake and alert in no acute distress. He is maintaining good O2 saturation in the mid 90s on 2 L nasal cannula. He continues to work well with the incentive spirometer. He is afebrile. Hemodynamically stable. Blood cultures reveal no growth. Glucose 139. He is continued on DuoNeb inhalations, Symbicort, Solu-Medrol. Antibiotics in the form of Zosyn. Heparin for DVT prophylaxis. The patient is seen today 12/12/2022 in follow-up on the regular medical floor. He sitting up in bed. Awake and alert in no acute distress. Maintaining good O2 saturations in the 90s on 2 L/m per nasal cannula. He has D5W of 50 ML's per hour. He is on antibiotics in the form of Zosyn. He is continued on Symbicort and DuoNeb inhalations. He is working well with the incentive spirometer. Blood cultures revealed no growth. White count 14.4. Hemoglobin 10.4. Platelets and 60. Sodium 138. Potassium 3.7. Bicarb 20. BUN 43. Creatinine 1.48. He remains on DuoNeb inhalations, Symbicort, prednisone taper. Heparin for DVT prophylaxis. on 12/13 2022, I'm seeing the patient for a follow-up. the patient has undergone hernia superior and the patient is currently postop day #4. I'm seeing this patient regarding his COPD.Multiple medical problems and comorbidities including COPD. The patient was hospitalized for an acute COPD exacerbation. He remains on Symbicort and DuoNeb nebulized treatments [id number]. No significant complaints otherwise. Patient is on a prednisone burst taper. The patient on Symbicort as maintenance. He is known to have other comorbidities including hypertension, hyperlipidemia, neurogenic bladder and previous history of aortic valve repair, the white cell count at 16.2, sodium is 141, BUN is at 35 with a creatinine of 1.6 and the patient also has chronic kidney disease.the patient continues to use incentive spirometer. Objective - Vital Signs Vital signs: Vital Signs Temp 98.4 F 12/13/22 11:48 Pulse 94 12/13/22 11:48 Resp 18 12/13/22 11:48 BP 132/67 12/13/22 11:48 Pulse Ox 99 12/13/22 11:48 FiO2 Intake & Output 12/12/22 12/13/22 12/13/22 18:59 06:59 18:59 Intake Total 240 Output Total 1500 1200 Balance -1500 -960 Weight 54.431 kg Intake: Oral 240 Output: Urine 1500 1200 Other: Voiding Method Indwelling Catheter Indwelling Catheter Indwelling Catheter # Bowel Movements 1 - Exam GENERAL EXAM: Alert, pleasant 77-year-old male, on room air, comfortable in no apparent distress., the patient is currently on 3 L O2 nasal cannula with a pulse ox of 99% HEAD: Normocephalic. EYES: Normal reaction of pupils, equal size. NOSE: Clear with pink turbinates. THROAT: Edentulous. No erythema or exudates. NECK: No masses, no JVD. CHEST: No chest wall deformity. LUNGS: Equal air entry with a faint end expiratory wheeze, diminished. CVS: S1 and S2 normal with no audible murmur, regular rhythm. ABDOMEN: No hepatosplenomegaly, normal bowel sounds, no guarding or rigidity. SPINE: No scoliosis or deformity SKIN: No rashes CENTRAL NERVOUS SYSTEM: No focal deficits, tone is normal in all 4 extremities. EXTREMITIES: Bilateral inguinal hernias, right greater than left. There is no peripheral edema. No clubbing, no cyanosis. Peripheral pulses are intact. - Labs CBC & Chem 7: 12/13/22 05:25 12/13/22 05:25 Labs: Abnormal Lab Results - Last 24 Hours (Table) 12/12/22 12/12/22 12/13/22 Range/Units 17:41 19:45 05:25 WBC (4.50-10.00) X 10*3/uL RBC (4.10-5.60) X 10*6/uL Hgb (12.0-17.0) d/dL Hct (37.2-50.0) % MCV (80.0-97.0) FL MCHC (32.0-37.0) d/dL Neutrophils # (Manual) (1.80-7.70) X 10*3/uL Monocytes # (Manual) (0.20-1.00) X 10*3/uL Eosinophils # (Manual) (0.04-0.35) X 10*3/uL NRBC/100 WBC Diff (0.00-0.01) X 10*3/uL Anion Gap (4.00-12.00) mmol/L BUN (9.0-27.0) mg/dL Creatinine (0.6-1.5) mg/dL Est GFR (CKD-EPI) (>=60) BUN/Creatinine Ratio (12.00-20.00) Ratio Glucose (70-110) mg/dL POC Glucose (mg/dL) 241 H 140 H (70-110) mg/dL Calcium (8.7-10.3) mg/dL Procalcitonin 0.19 H (0.02-0.09) ng/mL 12/13/22 12/13/22 12/13/22 Range/Units 05:25 05:25 11:50 WBC 16.21 H (4.50-10.00) X 10*3/uL RBC 3.29 L (4.10-5.60) X 10*6/uL Hgb 10.1 L (12.0-17.0) d/dL Hct 32.0 L (37.2-50.0) % MCV 97.3 H (80.0-97.0) FL MCHC 31.6 L (32.0-37.0) d/dL Neutrophils # (Manual) 11.51 H (1.80-7.70) X 10*3/uL Monocytes # (Manual) 1.13 H (0.20-1.00) X 10*3/uL Eosinophils # (Manual) 0.81 H (0.04-0.35) X 10*3/uL NRBC/100 WBC Diff 0.02 H (0.00-0.01) X 10*3/uL Anion Gap 12.10 H (4.00-12.00) mmol/L BUN 35.2 H (9.0-27.0) mg/dL Creatinine 1.6 H (0.6-1.5) mg/dL Est GFR (CKD-EPI) 45 L (>=60) BUN/Creatinine Ratio 22.00 H (12.00-20.00) Ratio Glucose 68 L (70-110) mg/dL POC Glucose (mg/dL) 123 H (70-110) mg/dL Calcium 7.7 L (8.7-10.3) mg/dL Procalcitonin (0.02-0.09) ng/mL Assessment and Plan Plan: Abdominal pain secondary to incarcerated inguinal hernias, right greater than left. Status post bilateral hernia repairs. Postoperative day #4 Acute exacerbation of chronic obstructive pulmonary disease. FEV1 value 0.53 L, 20% of predicted , improving and the patient remains on a combination of bronchodilators and patient is also on a prednisone burst taper History of greater than 50 years smoking, quit March 2022 Acute kidney injury, diuretics have been held, renal function is stable History of previous heavy alcohol use History of neurogenic bladder History of thoracic aortic aneurysm/aortic valve repair at [facility] May 2018 Hypertension Hyperlipidemia History of depression Plan: encourage use of incentive spirometer Increase mobility and the patient's condition is stable for now complete the prednisone burst taper Continue SymbicortLayne, prednisone taper Working with the incentive spirometer Titrate down the FiO2 as tolerated Increase his activity as tolerated Cleared for discharge from the pulmonary standpoint
--- NOTE | 2022-12-13 15:50 | P.PN ---
Subjective Progress Note Date: 12/13/22 This is a very pleasant 77-year-old male who was recently admitted with scrotal swelling and bilateral inguinal hernia incarceration status post robotic- assisted reduction and repair of incarcerated left and right inguinal hernias with mesh. Patient is on breathing treatments along with steroids as patient has history of COPD. Patient is currently maintained on 3 L via nasal cannula and does not chronically where oxygen in the outpatient setting. Oxygen saturation is 99% and recommend wean FiO2 as tolerated. Will add incentive spirometer and encourage the patient to use. Patient has been accepted and approved to go to [facility] in case management following working on discharge planning. Discussed further with infectious disease given patient's white count and recent surgery patient is maintained on Zosyn and will obtain a midline and continue on IV Zosyn for 1 week. Planning for discharge to [facility] in 24 hours. Review of systems: Constitutional: No reports of fatigue, fever, or chills Cardiovascular: No reports of chest pain or palpitations Respiratory: No reports of worsening shortness of breath or cough GI: No reports of nausea, no reports of vomiting, no diarrhea : No reports of dysuria or retention Neurovascular: reports of generalized weakness All medications have been reviewed PHYSICAL EXAMINATION: GENERAL: The patient is alert and oriented x4, Well developed, thin built, elderly appearing. HEENT: Pupils are round and equally reacting to light. EOMI. no scleral icterus. No conjunctival pallor. Normocephalic, atraumatic. No pharyngeal erythema. No thyromegaly. CARDIOVASCULAR: S1 and S2 muffled PULMONARY: diminished breath sounds bilaterally with no wheezing , scattered rhonchi and some faint crackles at the bases noted. ABDOMEN: soft. Nontender on exam. non-distended, normoactive bowel sounds. No palpable organomegaly. MUSCULOSKELETAL: No joint swelling or deformity. EXTREMITIES: No cyanosis, clubbing, or pedal edema. NEUROLOGICAL: Gross neurological examination did not reveal any focal deficits. Diffuse weakness SKIN: No rashes. Assessment: Bilateral inguinal hernia with incarceration as well as small bowel obstruction, status post laparoscopic repair Right complex kidney cyst for outpatient follow-up History of aortic dissection, stable Leukocytosis, possibly reactive Chronic obstructive pulmonary disease, not in exacerbation History of EtOH stage II pressure ulcer, bilateral heels, present on admission Stage I pressure ulcer on the left buttock, present on admission GI prophylaxis DVT prophylaxis Full code Plan: Patient will be continued on current medications and IV antibiotics. Discussed with infectious disease with concerns of patient's elevated white count and recent surgery will continue on Zosyn and will obtain a midline and complete 11 week of antibiotic therapy IV on discharge Patient has been cleared for discharge to [facility] by surgery continued on a low fiber diet and will follow-up with urology in the outpatient setting Continue with indwelling Guzman catheter for now and recommend trial void in the outpatient setting once more mobile Continue DuoNeb treatments along with inhalers and oral prednisone. Patient is maintained on 3 L via nasal cannula and will add incentive spirometer and wean FiO2 as tolerated. Patient does not wear oxygen outpatient Will order a midline and follow-up on repeat labs in plan for discharge planning to [facility] in 24 hours The impression and plan of care has been dictated by Natividad Zavala, nurse practitioner as directed. Dr. Wong MD I have performed a history and examination and MDM of this patient, discussed the same with the dictator, and agree with the dictator's assessment and plan as written ,documented as a scribe. Based on total visit time, I have performed more than 50% of the visit. Any additional findings or plans will be noted. Objective - Vital Signs Vital signs: Vital Signs Temp 98.4 F 12/13/22 11:48 Pulse 94 12/13/22 11:48 Resp 18 12/13/22 11:48 BP 132/67 12/13/22 11:48 Pulse Ox 99 12/13/22 11:48 FiO2 Intake & Output 12/12/22 12/13/22 12/13/22 18:59 06:59 18:59 Intake Total 240 Output Total 1500 1200 Balance -1500 -960 Weight 54.431 kg Intake: Oral 240 Output: Urine 1500 1200 Other: Voiding Method Indwelling Catheter Indwelling Catheter Indwelling Catheter # Bowel Movements 1 - Labs CBC & Chem 7: 12/13/22 05:25 12/13/22 05:25 Labs: Abnormal Lab Results - Last 24 Hours (Table) 12/12/22 12/12/22 12/13/22 Range/Units 17:41 19:45 05:25 WBC (4.50-10.00) X 10*3/uL RBC (4.10-5.60) X 10*6/uL Hgb (12.0-17.0) d/dL Hct (37.2-50.0) % MCV (80.0-97.0) FL MCHC (32.0-37.0) d/dL Neutrophils # (Manual) (1.80-7.70) X 10*3/uL Monocytes # (Manual) (0.20-1.00) X 10*3/uL Eosinophils # (Manual) (0.04-0.35) X 10*3/uL NRBC/100 WBC Diff (0.00-0.01) X 10*3/uL Anion Gap (4.00-12.00) mmol/L BUN (9.0-27.0) mg/dL Creatinine (0.6-1.5) mg/dL Est GFR (CKD-EPI) (>=60) BUN/Creatinine Ratio (12.00-20.00) Ratio Glucose (70-110) mg/dL POC Glucose (mg/dL) 241 H 140 H (70-110) mg/dL Calcium (8.7-10.3) mg/dL Procalcitonin 0.19 H (0.02-0.09) ng/mL 12/13/22 12/13/22 12/13/22 Range/Units 05:25 05:25 11:50 WBC 16.21 H (4.50-10.00) X 10*3/uL RBC 3.29 L (4.10-5.60) X 10*6/uL Hgb 10.1 L (12.0-17.0) d/dL Hct 32.0 L (37.2-50.0) % MCV 97.3 H (80.0-97.0) FL MCHC 31.6 L (32.0-37.0) d/dL Neutrophils # (Manual) 11.51 H (1.80-7.70) X 10*3/uL Monocytes # (Manual) 1.13 H (0.20-1.00) X 10*3/uL Eosinophils # (Manual) 0.81 H (0.04-0.35) X 10*3/uL NRBC/100 WBC Diff 0.02 H (0.00-0.01) X 10*3/uL Anion Gap 12.10 H (4.00-12.00) mmol/L BUN 35.2 H (9.0-27.0) mg/dL Creatinine 1.6 H (0.6-1.5) mg/dL Est GFR (CKD-EPI) 45 L (>=60) BUN/Creatinine Ratio 22.00 H (12.00-20.00) Ratio Glucose 68 L (70-110) mg/dL POC Glucose (mg/dL) 123 H (70-110) mg/dL Calcium 7.7 L (8.7-10.3) mg/dL Procalcitonin (0.02-0.09) ng/mL
[2022-12-13 17:05] LABS: Glucose,Whole Blood 222 mg/dL (70-110)
--- NOTE | 2022-12-13 19:27 | P.PN ---
Subjective Patient is seen for f/u for DELROY on top of CKD. Renal function is stable. Cr staying at 1.4-1.6 mg/dL Basleine cr at 1.5 mg/dL No significant complaints today. Objective - Vital Signs Vital signs: Vital Signs Temp 98.5 F 12/13/22 18:53 Pulse 100 12/13/22 19:14 Resp 19 12/13/22 18:53 BP 112/66 12/13/22 18:53 Pulse Ox 96 12/13/22 18:53 FiO2 Intake & Output 12/13/22 12/13/22 12/14/22 06:59 18:59 06:59 Intake Total 240 Output Total 1200 800 Balance -960 -800 Weight 54.431 kg Intake: Oral 240 Output: Urine 1200 800 Other: Voiding Method Indwelling Catheter Indwelling Catheter # Bowel Movements 1 - Exam Awake Comfortable Lungs: decreased breath sounds at bases. CVS S1 and S2 Abdomen is soft, non tender. Extremities show no edema. - Labs CBC & Chem 7: 12/13/22 05:25 12/13/22 05:25 Labs: Abnormal Lab Results - Last 24 Hours (Table) 12/12/22 12/13/22 12/13/22 Range/Units 19:45 05:25 05:25 WBC 16.21 H (4.50-10.00) X 10*3/uL RBC 3.29 L (4.10-5.60) X 10*6/uL Hgb 10.1 L (12.0-17.0) d/dL Hct 32.0 L (37.2-50.0) % MCV 97.3 H (80.0-97.0) FL MCHC 31.6 L (32.0-37.0) d/dL Neutrophils # (Manual) 11.51 H (1.80-7.70) X 10*3/uL Monocytes # (Manual) 1.13 H (0.20-1.00) X 10*3/uL Eosinophils # (Manual) 0.81 H (0.04-0.35) X 10*3/uL NRBC/100 WBC Diff 0.02 H (0.00-0.01) X 10*3/uL Anion Gap (4.00-12.00) mmol/L BUN (9.0-27.0) mg/dL Creatinine (0.6-1.5) mg/dL Est GFR (CKD-EPI) (>=60) BUN/Creatinine Ratio (12.00-20.00) Ratio Glucose (70-110) mg/dL POC Glucose (mg/dL) 140 H (70-110) mg/dL Calcium (8.7-10.3) mg/dL Procalcitonin 0.19 H (0.02-0.09) ng/mL 12/13/22 12/13/22 12/13/22 Range/Units 05:25 11:50 17:03 WBC (4.50-10.00) X 10*3/uL RBC (4.10-5.60) X 10*6/uL Hgb (12.0-17.0) d/dL Hct (37.2-50.0) % MCV (80.0-97.0) FL MCHC (32.0-37.0) d/dL Neutrophils # (Manual) (1.80-7.70) X 10*3/uL Monocytes # (Manual) (0.20-1.00) X 10*3/uL Eosinophils # (Manual) (0.04-0.35) X 10*3/uL NRBC/100 WBC Diff (0.00-0.01) X 10*3/uL Anion Gap 12.10 H (4.00-12.00) mmol/L BUN 35.2 H (9.0-27.0) mg/dL Creatinine 1.6 H (0.6-1.5) mg/dL Est GFR (CKD-EPI) 45 L (>=60) BUN/Creatinine Ratio 22.00 H (12.00-20.00) Ratio Glucose 68 L (70-110) mg/dL POC Glucose (mg/dL) 123 H 222 H (70-110) mg/dL Calcium 7.7 L (8.7-10.3) mg/dL Procalcitonin (0.02-0.09) ng/mL Assessment and Plan Assessment: #1 acute kidney injury secondary to hemodynamic ATN. -Baseline creatinine 1.5 MG per DL -Admission creatinine 2.1 MG per DL. -Renal ultrasound left renal complex cyst and mild hydronephrosis #2 chronic kidney disease stage IIIB with a baseline creatinine of 1.5 MG per DL. #3 chronic diastolic CHF #4 bilateral abdominal hernia status post repair Plan: F/u as out patient for CKD F/u as out patient with Urology for complex renal cyst
[2022-12-13 20:05] LABS: Glucose,Whole Blood 171 mg/dL (70-110)
[2022-12-13] MEDS ORDERED: PSYLLIUM HUSK 100% 6 GM PACKET PO PRN (20:30)
[2022-12-13] MEDS: TAMSULOSIN 0.4 MG CAP.ER.24H PO SCH (20:32)
[2022-12-13] MEDS ORDERED: LOPERAMIDE 2 MG CAP PO PRN (20:32)
[2022-12-14 07:03] LABS: Glucose,Whole Blood 101 mg/dL (70-110)
[2022-12-14 07:39] VITALS: RESP 18
[2022-12-14] MEDS: INSULIN ASPART (NovoLOG) 100 UNIT/ML VIAL SQ SCH ×2 (08:05→13:18)
[2022-12-14] MEDS: SYMBICORT 160-4.5 MCG INHALER INHALATION SCH (08:17)
[2022-12-14] MEDS: IPRATROPIUM-ALBUTEROL 3 ML NEB INHALATION SCH ×3 (08:17→15:04)
[2022-12-14 09:15] LABS: Blood Urea Nitrogen 34.2 mg/dL (9.0-27.0); Carbon Dioxide 25.9 mmol/L (21.6-31.8); Chloride 109 mmol/L (96-109); Glucose 83 mg/dL (70-110); Potassium 3.9 mmol/L (3.5-5.5); Sodium 144 mmol/L (135-145)
[2022-12-14 09:44] LABS: HCT 30.9 % (37.2-50.0); HGB 9.8 d/dL (12.0-17.0); MCH 30.5 pg (27.0-32.0); MCHC 31.7 d/dL (32.0-37.0); MCV 96.3 FL (80.0-97.0); Mean Platelet Volume 10.8 FL (9.5-12.2); NRBC Per 100 WBC 0 X 10*3/uL (0.00-0.01); Platelet Count 192 X 10*3/uL (140-440); RBC 3.21 X 10*6/uL (4.10-5.60); RDW 14.1 % (11.5-14.5); WBC 15.61 X 10*3/uL (4.50-10.00)
[2022-12-14] MEDS: HEPARIN SODIUM,PORCINE 5,000 UNIT/ML 1 ML VIAL SQ SCH (09:55)
[2022-12-14] MEDS: METOPROLOL SUCCINATE (ER) 25 MG TAB.ER.24H PO SCH (09:55)
[2022-12-14] MEDS: THIAMINE 100 MG TAB PO SCH (09:55)
[2022-12-14] MEDS: PIPERACILLIN-TAZOBACTAM 3.375 GM in SODIUM CHLORIDE 0.9% 100 ML IVPB SCH ×2 (09:55→16:23)
[2022-12-14] MEDS: predniSONE 20 MG TAB PO SCH (09:56)
[2022-12-14] MEDS: DOCUSATE 100 MG CAP PO SCH ×2 (09:56→09:59)
[2022-12-14] MEDS: NON FORMULARY DRUG (Mirabegron [Myrbetriq] 50 MG Tab.Er.24h) PO SCH (09:56)
[2022-12-14] MEDS: SERTRALINE 25 MG TAB PO SCH ×2 (09:56→10:00)
[2022-12-14] MEDS: SODIUM BICARBONATE TAB 650 MG TAB PO SCH (09:56)
[2022-12-14 10:35] LABS: Basophils # (M) 0 X 10*3/uL (0.00-0.10); Neutrophils % (M) 76 %
--- NOTE | 2022-12-14 11:12 | P.PN ---
Subjective Progress Note Date: 12/14/22 CHIEF COMPLAINT: Incarcerated inguinal hernia HISTORY OF PRESENT ILLNESS: Patient is postop day #5 status post Robotic- assisted reduction repair of incarcerated left and right inguinal hernias with mesh. Patient sitting up in bed eating breakfast. Reports denies any pain or swelling. She he is scheduled for discharge to [facility] today. Afebrile. WBC 16 down to 15 PHYSICAL EXAM: VITAL SIGNS: Reviewed GENERAL: Well-developed in no acute distress. HEENT: No sclera icterus. Extraocular movements grossly intact. Moist buccal mucosa. Head is atraumatic, normocephalic. Hears conversational speech. No nasal drainage. NECK: Supple without lymphadenopathy. CHEST: Non-labored respirations and equal bilateral excursions. CARDIOVASCULAR: Palpable 2+ radial pulses. ABDOMEN: Soft. Nondistended. MUSCULOSKELETAL: No clubbing or cyanosis. NEUROLOGIC: No focal or lateralizing signs. Cranial nerves II through XII grossly intact. PSYCH: Appropriate affect. Alert and oriented to person, place and time. SKIN: Well perfused. Good skin turgor. ASSESSMENT: 1. Initial left inguinal hernia, incarcerated with sigmoid colon bowel obstruction 2. Initial right inguinal hernia, incarcerated with small bowel bowel obstruction 3. Moderate to severe sigmoid diverticulosis 4. COPD 5. Acute on chronic renal failure 6. History of thoracic aortic aneurysm 7. History of EtOH use 8. Seroma at surgical site PLAN: -Patient can be discharged surgical standpoint when medically cleared -Continue low fiber diet -Would recommend Trus to decrease fluids/seroma. Unfortunately there is no Trus available -Continue pain management -Encouraged patient to increase activity level -DVT prophylaxis subcu heparin Physician X Ray Service Engineer note has been reviewed by physician. Signing provider agrees with the documented findings, assessment, and plan of care. Objective - Vital Signs Vital signs: Vital Signs Temp 98 F 12/14/22 06:57 Pulse 92 12/14/22 08:32 Resp 18 12/14/22 06:57 BP 138/73 12/14/22 06:57 Pulse Ox 99 12/14/22 06:57 FiO2 Intake & Output 12/13/22 12/14/22 12/14/22 18:59 06:59 18:59 Output Total 800 650 Balance -800 -650 Weight 54.431 kg Output: Urine 800 650 Other: Voiding Method Indwelling Catheter Indwelling Catheter Indwelling Catheter - Labs CBC & Chem 7: 12/14/22 05:50 12/14/22 05:50 Labs: Abnormal Lab Results - Last 24 Hours (Table) 12/13/22 12/13/22 12/13/22 Range/Units 11:50 17:03 20:03 WBC (4.50-10.00) X 10*3/uL RBC (4.10-5.60) X 10*6/uL Hgb (12.0-17.0) d/dL Hct (37.2-50.0) % MCHC (32.0-37.0) d/dL BUN (9.0-27.0) mg/dL Est GFR (CKD-EPI) (>=60) BUN/Creatinine Ratio (12.00-20.00) Ratio POC Glucose (mg/dL) 123 H 222 H 171 H (70-110) mg/dL Calcium (8.7-10.3) mg/dL 12/14/22 12/14/22 Range/Units 05:50 05:50 WBC 15.61 H (4.50-10.00) X 10*3/uL RBC 3.21 L (4.10-5.60) X 10*6/uL Hgb 9.8 L (12.0-17.0) d/dL Hct 30.9 L (37.2-50.0) % MCHC 31.7 L (32.0-37.0) d/dL BUN 34.2 H (9.0-27.0) mg/dL Est GFR (CKD-EPI) 48 L (>=60) BUN/Creatinine Ratio 22.80 H (12.00-20.00) Ratio POC Glucose (mg/dL) (70-110) mg/dL Calcium 8.0 L (8.7-10.3) mg/dL
[2022-12-14 11:34] LABS: Eosinophils # (M) 0.47 X 10*3/uL (0.04-0.35); Monocytes # (M) 0.47 X 10*3/uL (0.20-1.00); RBC Morphology Normal (Normal)
[2022-12-14 11:46] LABS: Glucose,Whole Blood 135 mg/dL (70-110)
--- NOTE | 2022-12-14 12:17 | P.PN ---
Subjective Progress Note Date: 12/14/22 This is a 77-year-old male patient with a history of chronic obstructive pulmonary disease, former smoker, daily alcohol use, gastroesophageal reflux disease, hypertension, hyperlipidemia, neuromuscular dysfunction and the bladder,, previous thoracic aortic aneurysm repair for aortic valve repair. He does have a history of bilateral inguinal hernias and was having issues with abdominal pain and was found to have an incarcerated hernia was transferred from [facility] to here for surgical evaluation. He was also having concern is also having complaints of increasing shortness of breath. Chest x-ray revealed no acute pulmonary process. He states he quit smoking in March 2022. He is not on home oxygen. He is on DuoNeb inhalations and Combivent inhaler in the outpatient setting. He is seen today in consultation. He is currently maintaining O2 saturations in the 90s on room air. He's afebrile. Hemodynamically stable. White count 18.5. Hemoglobin 11.0. Platelets 154. Sodium 137. Potassium 4.7. Bicarb 25. BUN 71. Creatinine 2.21. Glucose 130. Influenza screen negative. RSV screen negative. COVID-19 screen negative. The patient is seen today 12/08/2022 in follow-up on the regular medical floor. He is currently sitting up having breakfast. Awake and alert in no acute distress. He is maintaining good O2 saturations in the 90s on room air. His FEV1 value is 0.53 L which is 20% of predicted. Gold stage IV COPD. He is breathing easier today compared to yesterday. He had been initiated on Pulmicort and Perforomist inhalations, DuoNeb inhalations, IV Solu-Medrol. Antibiotics in the form of Zosyn. Heparin for DVT prophylaxis. Currently in the CIWA protocol. No Ativan required. Plan is for surgical intervention regarding incarcerated hernia tomorrow. White count 11.9. Hemoglobin 9.5. Platelets 146. Sodium 142. Potassium 4.7. Bicarb 23. BUN 51. Creatinine 2.1. Glucose 157. Pro-calcitonin was 1.29. The patient is seen today 12/09/2022 in follow-up on the regular medical floor. He is resting in bed. Awake alert no acute distress. Continues to breathe easier each day. Denies any worsening shortness of breath, cough or congestion. 18 in good O2 saturations in the 90s on room air. He's afebrile. Hemodynamically stable. White count 14.2. Hemoglobin 10.2. Platelets 160. Sodium 140. Potassium 4.3. I curb 18. BUN 32. Creatinine 1.8. He is continued on Zosyn. Remains on bronchodilators, steroids. Normal saline at 50 MLS per hour. Plan is for surgical repair of his inguinal hernia today. The patient is seen today 12/10/2022 in follow-up on the regular medical floor. He is resting comfortably in bed. Awake and alert in no acute distress. Maintaining O2 saturations in the 90s on 2 L/m per nasal cannula. D5W at 50 MLS per hour. He did undergo bilateral hernia repair. Postoperative day #1. Tolerated procedure well. He is continued on DuoNeb inhalations, Pulmicort and Perforomist inhalations, IV Solu-Medrol. Antibiotics in the form of Zosyn. Heparin for DVT prophylaxis. White count 12.9. Hemoglobin 10.4. Platelets 156. Sodium 146. Potassium 4.4. Bicarb 23. BUN 34. Creatinine 1.8. Glucose 116. The patient is seen today 12/11/2022 in follow-up on the regular medical floor. He is awake and alert in no acute distress. He is maintaining good O2 saturation in the mid 90s on 2 L nasal cannula. He continues to work well with the incentive spirometer. He is afebrile. Hemodynamically stable. Blood cultures reveal no growth. Glucose 139. He is continued on DuoNeb inhalations, Symbicort, Solu-Medrol. Antibiotics in the form of Zosyn. Heparin for DVT prophylaxis. The patient is seen today 12/12/2022 in follow-up on the regular medical floor. He sitting up in bed. Awake and alert in no acute distress. Maintaining good O2 saturations in the 90s on 2 L/m per nasal cannula. He has D5W of 50 ML's per hour. He is on antibiotics in the form of Zosyn. He is continued on Symbicort and DuoNeb inhalations. He is working well with the incentive spirometer. Blood cultures revealed no growth. White count 14.4. Hemoglobin 10.4. Platelets and 60. Sodium 138. Potassium 3.7. Bicarb 20. BUN 43. Creatinine 1.48. He remains on DuoNeb inhalations, Symbicort, prednisone taper. Heparin for DVT prophylaxis. on 12/13 2022, I'm seeing the patient for a follow-up. the patient has undergone hernia superior and the patient is currently postop day #4. I'm seeing this patient regarding his COPD.Multiple medical problems and comorbidities including COPD. The patient was hospitalized for an acute COPD exacerbation. He remains on Symbicort and DuoNeb nebulized treatments [id number]. No significant complaints otherwise. Patient is on a prednisone burst taper. The patient on Symbicort as maintenance. He is known to have other comorbidities including hypertension, hyperlipidemia, neurogenic bladder and previous history of aortic valve repair, the white cell count at 16.2, sodium is 141, BUN is at 35 with a creatinine of 1.6 and the patient also has chronic kidney disease.the patient continues to use incentive spirometer. On today's evaluation of 12/14/2022, the patient is stable. No issues with his surgery and the patient is postop day #5. His COPD is currently inactive and stable. The patient continues to be on Symbicort and DuoNeb updrafts. He is also completing a prednisone burst taper and the patient is currently on 40 mg of prednisone and Symbicort as maintenance in addition to his bronchodilators and incentive spirometer. Labs from today shows a white cell count of 15 with a hemoglobin of 9.8, BUN is at 34 with a creatinine of 1.5 and a sodium level is at 144. No issues with nausea or vomiting. Tolerating diet. Having bowel mo vements. Objective - Vital Signs Vital signs: Vital Signs Temp 98 F 12/14/22 06:57 Pulse 92 12/14/22 08:32 Resp 18 12/14/22 06:57 BP 138/73 12/14/22 06:57 Pulse Ox 99 12/14/22 06:57 FiO2 Intake & Output 12/13/22 12/14/22 12/14/22 18:59 06:59 18:59 Output Total 800 650 Balance -800 -650 Weight 54.431 kg Output: Urine 800 650 Other: Voiding Method Indwelling Catheter Indwelling Catheter Indwelling Catheter - Exam GENERAL EXAM: Alert, pleasant 77-year-old male, on room air, comfortable in no apparent distress., the patient is currently on 3 L O2 nasal cannula with a pulse ox of 99% HEAD: Normocephalic. EYES: Normal reaction of pupils, equal size. NOSE: Clear with pink turbinates. THROAT: Edentulous. No erythema or exudates. NECK: No masses, no JVD. CHEST: No chest wall deformity. LUNGS: Equal air entry with a faint end expiratory wheeze, diminished. CVS: S1 and S2 normal with no audible murmur, regular rhythm. ABDOMEN: No hepatosplenomegaly, normal bowel sounds, no guarding or rigidity. SPINE: No scoliosis or deformity SKIN: No rashes CENTRAL NERVOUS SYSTEM: No focal deficits, tone is normal in all 4 extremities. EXTREMITIES: Bilateral inguinal hernias, right greater than left. There is no peripheral edema. No clubbing, no cyanosis. Peripheral pulses are intact. - Labs CBC & Chem 7: 12/14/22 05:50 12/14/22 05:50 Labs: Abnormal Lab Results - Last 24 Hours (Table) 12/13/22 12/13/22 12/13/22 Range/Units 11:50 17:03 20:03 WBC (4.50-10.00) X 10*3/uL RBC (4.10-5.60) X 10*6/uL Hgb (12.0-17.0) d/dL Hct (37.2-50.0) % MCHC (32.0-37.0) d/dL BUN (9.0-27.0) mg/dL Est GFR (CKD-EPI) (>=60) BUN/Creatinine Ratio (12.00-20.00) Ratio POC Glucose (mg/dL) 123 H 222 H 171 H (70-110) mg/dL Calcium (8.7-10.3) mg/dL 12/14/22 12/14/22 Range/Units 05:50 05:50 WBC 15.61 H (4.50-10.00) X 10*3/uL RBC 3.21 L (4.10-5.60) X 10*6/uL Hgb 9.8 L (12.0-17.0) d/dL Hct 30.9 L (37.2-50.0) % MCHC 31.7 L (32.0-37.0) d/dL BUN 34.2 H (9.0-27.0) mg/dL Est GFR (CKD-EPI) 48 L (>=60) BUN/Creatinine Ratio 22.80 H (12.00-20.00) Ratio POC Glucose (mg/dL) (70-110) mg/dL Calcium 8.0 L (8.7-10.3) mg/dL Assessment and Plan Plan: Abdominal pain secondary to incarcerated inguinal hernias, right greater than left. Status post bilateral hernia repairs. Postoperative day # 5 Acute exacerbation of chronic obstructive pulmonary disease. FEV1 value 0.53 L, 20% of predicted , improving and the patient remains on a combination of bronchodilators and patient is also on a prednisone burst taper History of greater than 50 years smoking, quit March 2022 Acute kidney injury, diuretics have been held, renal function is stable History of previous heavy alcohol use History of neurogenic bladder History of thoracic aortic aneurysm/aortic valve repair at [facility] May 2018 Hypertension Hyperlipidemia History of depression Plan: The patient is clinically stable encourage use of incentive spirometer Increase mobility and the patient's condition is stable for now complete the prednisone burst taper, currently on 40 mg of prednisone Continue SymbialekrtLayne, prednisone taper Working with the incentive spirometer Titrate down the FiO2 as tolerated Increase his activity as tolerated Cleared for discharge from the pulmonary standpoint
[2022-12-14 12:28] VITALS: BP 128/67; TEMP 98.8
--- NOTE | 2022-12-14 12:31 | P.PN ---
Subjective Patient is seen for f/u for DELROY on top of CKD. Renal function is stable. Cr staying at 1.4-1.6 mg/dL Basleine cr at 1.5 mg/dL No significant complaints today. Objective - Vital Signs Vital signs: Vital Signs Temp 98.8 F 12/14/22 11:45 Pulse 104 H 12/14/22 11:47 Resp 18 12/14/22 11:45 BP 128/67 12/14/22 11:45 Pulse Ox 100 12/14/22 11:45 FiO2 Intake & Output 12/13/22 12/14/22 12/14/22 18:59 06:59 18:59 Output Total 800 650 Balance -800 -650 Weight 54.431 kg Output: Urine 800 650 Other: Voiding Method Indwelling Catheter Indwelling Catheter Indwelling Catheter - Exam Awake Comfortable Lungs: decreased breath sounds at bases. CVS S1 and S2 Abdomen is soft, non tender. Extremities show no edema. - Labs CBC & Chem 7: 12/14/22 05:50 12/14/22 05:50 Labs: Abnormal Lab Results - Last 24 Hours (Table) 12/13/22 12/13/22 12/14/22 Range/Units 17:03 20:03 05:50 WBC 15.61 H (4.50-10.00) X 10*3/uL RBC 3.21 L (4.10-5.60) X 10*6/uL Hgb 9.8 L (12.0-17.0) d/dL Hct 30.9 L (37.2-50.0) % MCHC 31.7 L (32.0-37.0) d/dL Eosinophils # (Manual) 0.47 H (0.04-0.35) X 10*3/uL BUN (9.0-27.0) mg/dL Est GFR (CKD-EPI) (>=60) BUN/Creatinine Ratio (12.00-20.00) Ratio POC Glucose (mg/dL) 222 H 171 H (70-110) mg/dL Calcium (8.7-10.3) mg/dL 12/14/22 12/14/22 Range/Units 05:50 11:45 WBC (4.50-10.00) X 10*3/uL RBC (4.10-5.60) X 10*6/uL Hgb (12.0-17.0) d/dL Hct (37.2-50.0) % MCHC (32.0-37.0) d/dL Eosinophils # (Manual) (0.04-0.35) X 10*3/uL BUN 34.2 H (9.0-27.0) mg/dL Est GFR (CKD-EPI) 48 L (>=60) BUN/Creatinine Ratio 22.80 H (12.00-20.00) Ratio POC Glucose (mg/dL) 135 H (70-110) mg/dL Calcium 8.0 L (8.7-10.3) mg/dL Assessment and Plan Assessment: #1 acute kidney injury secondary to hemodynamic ATN. -Baseline creatinine 1.5 MG per DL -Admission creatinine 2.1 MG per DL. -Renal ultrasound left renal complex cyst and mild hydronephrosis #2 chronic kidney disease stage IIIB with a baseline creatinine of 1.5 MG per DL. #3 chronic diastolic CHF #4 bilateral abdominal hernia status post repair Plan: F/u as out patient for CKD F/u as out patient with Urology for complex renal cyst
--- NOTE | 2022-12-14 14:42 | P.DS ---
Providers Date of admission: 12/08/22 07:54 Expected date of discharge: 12/14/22 Attending physician: Amilcar White Consults: 12/06/22 20:29 Consult Physician Urgent Consulting Provider: Delma Roberts Consult Reason/Comments: Bilateral inguinal hernias, partial small bowel obstruction Do you want consulting provider notified?: Yes 12/07/22 08:34 Consult Physician Routine Consulting Provider: Modesto Kowalski Consult Reason/Comments: severe copd Do you want consulting provider notified?: Already Contacted 12/07/22 11:47 Consult Physician Urgent Consulting Provider: Tavo Fernandez Consult Reason/Comments: sbo, ?? infection Do you want consulting provider notified?: Yes 12/07/22 15:35 Consult Physician Routine Consulting Provider: Cruz Miles Consult Reason/Comments: crf Do you want consulting provider notified?: Yes 12/09/22 11:16 Consult Physician Routine Consulting Provider: Tito Greer Consult Reason/Comments: hydro, cyst left kidney Do you want consulting provider notified?: Yes Primary care physician: Ozzy Padilla Hospital Course: Final diagnosis Bilateral inguinal hernia with incarceration as well as small bowel obstruction, status post laparoscopic repair Right complex kidney cyst for outpatient follow-up History of aortic dissection, stable Leukocytosis, possibly reactive Chronic obstructive pulmonary disease, acute exacerbation History of EtOH stage II pressure ulcer, bilateral heels, present on admission Stage I pressure ulcer on the left buttock, present on admission GI prophylaxis DVT prophylaxis Full code Discharge disposition Patient is being discharged in a stable condition with guarded prognosis to [facility]. Patient will follow-up with Dr. Ozzy Padilla in the outpatient setting upon discharge. Patient is to continue with IV antibiotics in the form of Zosyn 3 times daily for the next 1 week and close outpatient follow-up with nephrology, urology as scheduled. Patient has a scheduled virtual visit with surgeon next week. Total time taken is greater than 35 minutes. Hospital course This is a 77-year-old male who was recently admitted with scrotal swelling found to have bilateral inguinal hernia incarceration and is status post robotic- assisted reduction and repair of incarcerated left and right inguinal hernias with mesh. Patient continues with indwelling Guzman catheter and will continue on close outpatient follow-up with urology. Patient also with chronic COPD was seen and evaluated by pulmonary maintained on breathing inhalational treatments and has transitioned oral prednisone taper and will follow-up in the outpatient setting. Patient currently on 3 L with oxygen saturations above 98%. Recommend to wean FiO2 as tolerated. Encouraged incentive spirometer use at least 10 times every hour while awake. Recommend follow-up labs to monitor kidney functions and close outpatient follow-up with neurology. Continue holding diuretics for now until repeat labs in follow-up. Recommend CBC, CMP, magnesium in 2-3 days. Patient is diabetic recommend Accu-Cheks before meals and at bedtime and continue sliding scale. Patient chronically takes Zoloft in the outpatient setting and has been refusing each day. Patient was instructed to follow-up with primary care provider about this. Patient has been cleared by consultations for discharge. Please refer to consultation notes for further HPI. Currently no reports of chest pain, shortness of breath, or palpitations. Patient is afebrile. No reports of nausea or vomiting and patient is tolerating diet. Patient will be going [facility] [place] today. Guarded prognosis. Physical exam: Gen: This is a 77-year-old male who is awake, alert and oriented 3, well- developed, well-nourished, elderly-appearing HEENT: Head is atraumatic, normocephalic. Pupils equal, round. Sclerae is anicteric. NECK: Supple. No JVD. No lymphadenopathy. No thyromegaly. LUNGS: Diminished breath sounds bilaterally with faint expiratory wheezes and coarse scattered rhonchi noted. No intercostal retractions. HEART: Regular rate and rhythm. No murmur. ABDOMEN: Soft. Bowel sounds are present. No masses. No tenderness. EXTREMITIES: No pedal edema. No calf tenderness. NEUROLOGICAL: Patient is awake, alert and oriented x3. Cranial nerves 2 through 12 are grossly intact. Diffusely weak Please refer to medication reconciliation sheet for a list of medications. The impression and plan of care has been dictated by Natividad Zavala, Nurse Practitioner as directed. Dr. Wong MD I have performed a history and examination and MDM of this patient, discussed the same with the dictator, and agree with the dictator's assessment and plan as written ,documented as a scribe. Based on total visit time, I have performed more than 50% of the visit. Patient Condition at Discharge: Stable Plan - Discharge Summary Discharge Rx Participant: No New Discharge Prescriptions: New Ipratropium-Albuterol Nebulize [Duoneb 0.5 mg-3 mg/3 ml Soln] 3 ml INHALATION RT-Q2H PRN each PRN Reason: Shortness Of Breath Or Wheezing Psyllium Husk 100% [Metamucil Packet] 6 gm PO BID PRN packet PRN Reason: Diarrhea predniSONE 10 mg PO DIRECTED #30 tab Sennosides [Senokot] 8.6 mg PO BID PRN tab PRN Reason: Constipation Sodium Bicarbonate Tab 650 mg PO BID tab Heparin Sodium,Porcine (1 ml) [Heparin Sodium] 5,000 unit SQ Q12HR each Loperamide [Imodium] 2 mg PO QID PRN cap PRN Reason: Diarrhea INSULIN ASPART (NovoLOG) [NovoLOG (formulary)] 0 unit SQ ACHS each Budesonide-Formot 160-4.5 Mcg [Symbicort 160-4.5 Mcg Inhaler] 2 puff INHALATION RT-BID each Acetaminophen Tab [Tylenol] 650 mg PO Q6HR PRN tab PRN Reason: Fever And/ Or Pain Thiamine [Vitamin B-1] 100 mg PO DAILY tab Piperacillin-Tazobactam [Zosyn] 3.375 gm IVPB Q8HR 7 Days #21 each Continue Metoprolol Succinate (ER) [Toprol XL] 12.5 mg PO DAILY #30 tab.er.24h Ipratropium/Albuterol Sulfate [Combivent Respimat Inhaler] 1 puff INHALATION RT-TID #1 mist.inhal Sertraline [Zoloft] 25 mg PO DAILY Fluticasone Nasal [place] [Flonase Nasal [place]] 1 - 2 spr EA NOSTRIL DAILY Multivit-Mins/Iron/Folic/Lycop [Centrum Men's Tablet] 1 tab PO DAILY Pantoprazole [Protonix] 40 mg PO BID Tamsulosin [Flomax] 0.4 mg PO HS Ipratropium-Albuterol Nebulize [Duoneb 0.5 mg-3 mg/3 ml Soln] 3 ml INHALATION RT-QID Ascorbic Acid [Vitamin C] 1,000 mg PO DAILY Aspirin EC [Ecotrin Low Dose] 81 mg PO DAILY Magnesium Oxide [Magnesium] 500 mg PO DAILY Discontinued Spironolactone [Aldactone] 25 mg PO DAILY #30 tab Mirabegron [Myrbetriq] 50 mg PO DAILY Ferrous Sulfate [Feosol] 325 mg PO DAILY Furosemide [Lasix] 60 mg PO DAILY Discharge Medication List Metoprolol Succinate (ER) [Toprol XL] 12.5 mg PO DAILY #30 tab.er.24h 09/14/18 [Rx] Ipratropium/Albuterol Sulfate [Combivent Respimat Inhaler] 1 puff INHALATION RT- TID #1 mist.inhal 09/15/18 [Rx] Sertraline [Zoloft] 25 mg PO DAILY 02/02/19 [History] Ipratropium-Albuterol Nebulize [Duoneb 0.5 mg-3 mg/3 ml Soln] 3 ml INHALATION RT-QID 10/18/21 [History] Ascorbic Acid [Vitamin C] 1,000 mg PO DAILY 12/06/22 [History] Aspirin EC [Ecotrin Low Dose] 81 mg PO DAILY 12/06/22 [History] Fluticasone Nasal [place] [Flonase Nasal [place]] 1 - 2 spr EA NOSTRIL DAILY 12/06/22 [History] Magnesium Oxide [Magnesium] 500 mg PO DAILY 12/06/22 [History] Multivit-Mins/Iron/Folic/Lycop [Centrum Men's Tablet] 1 tab PO DAILY 12/06/22 [History] Pantoprazole [Protonix] 40 mg PO BID 12/06/22 [History] Tamsulosin [Flomax] 0.4 mg PO HS 12/06/22 [History] Acetaminophen Tab [Tylenol] 650 mg PO Q6HR PRN tab 12/14/22 [Rx] Budesonide-Formot 160-4.5 Mcg [Symbicort 160-4.5 Mcg Inhaler] 2 puff INHALATION RT-BID each 12/14/22 [Rx] Heparin Sodium,Porcine (1 ml) [Heparin Sodium] 5,000 unit SQ Q12HR each 12/14/22 [Rx] INSULIN ASPART (NovoLOG) [NovoLOG (formulary)] 0 unit SQ ACHS each 12/14/22 [Rx] Ipratropium-Albuterol Nebulize [Duoneb 0.5 mg-3 mg/3 ml Soln] 3 ml INHALATION RT-Q2H PRN each 12/14/22 [Rx] Loperamide [Imodium] 2 mg PO QID PRN cap 12/14/22 [Rx] Piperacillin-Tazobactam [Zosyn] 3.375 gm IVPB Q8HR 7 Days #21 each 12/14/22 [Rx] Psyllium Husk 100% [Metamucil Packet] 6 gm PO BID PRN packet 12/14/22 [Rx] Sennosides [Senokot] 8.6 mg PO BID PRN tab 12/14/22 [Rx] Sodium Bicarbonate Tab 650 mg PO BID tab 12/14/22 [Rx] Thiamine [Vitamin B-1] 100 mg PO DAILY tab 12/14/22 [Rx] predniSONE 10 mg PO DIRECTED #30 tab 12/14/22 [Rx] Follow up Appointment(s)/Referral(s): Delma Roberts MD [STAFF PHYSICIAN] - 12/21/22 Ozzy Padilla MD [Primary Care Provider] - 1-2 days Activity/Diet/Wound Care/Special Instructions: Patient is going to [facility] [facility] as tolerated Continue with IV antibiotics in the form of IV Zosyn per ID recommendations 3 times daily for the next one week Follow-up with urology outpatient Follow-up nephrology outpatient Follow-up with primary care provider on discharge Continue monitoring Accu-Cheks before meals and at bedtime and use sliding scale as needed NovoLog sliding scale 0-150 equals 0 units 151-200 equals 2 units 201-250 equals 4 units 251-300 equals 6 units 301-350 equals 8 units 351-400 equals 10 units Please notify provider if blood sugar is 400 or above Telehealth follow up visit with Armando on 12/21/22 Discharge Disposition: TRANSFER TO SNF/ECF
[2022-12-14 15:18] VITALS: PULSE 100
[2022-12-14] MEDS: DEXTROSE 5% IN WATER 1,000 ML IV SCH (16:23)
--- NOTE | 2022-12-14 17:25 | P.PN ---
Subjective Progress Note Date: 12/14/22 Principal diagnosis: Leukocytosis and bowel obstruction Patient is a 77-year-old male with a past medical his significant for hypertension hyperlipidemia reflux COPD presenting to the hospital for abdominal pain apparently the patient presented to outside hospital initially with the patient will be diagnosed with small bowel obstruction secondary to a hernia and patient has been transferred to this facility for further management.Patient did have evidence of incarcerated bilateral inguinal hernia sac however no mention of any incarcerated bowel perforation on operative report in this patient who is status post operative repair on 12/09/2022 on today's evaluation that is 12/14/2022, the patient denies any fever or any chills, the patient is breathing comfortably on 3 L nasal cannula oxygen , the patient denies chest pain or cough, the patient denies nausea and vomiting and the patient abdominal pain is currently controlled and no diarrhea Patient white count is slightly down to 15.6 on, creatinine is 1.5, procalcitonin is down to 0.19, CRP 0.60 Objective - Vital Signs Vital signs: Vital Signs Temp 98.8 F 12/14/22 11:45 Pulse 100 12/14/22 15:18 Resp 18 12/14/22 11:45 BP 128/67 12/14/22 11:45 Pulse Ox 100 12/14/22 11:45 FiO2 Intake & Output 12/13/22 12/14/22 12/14/22 18:59 06:59 18:59 Output Total 800 650 700 Balance -800 -650 -700 Weight 54.431 kg Output: Urine 800 650 700 Other: Voiding Method Indwelling Catheter Indwelling Catheter Indwelling Catheter # Bowel Movements 1 - Exam GENERAL DESCRIPTION: An elderly male lying in bed in no distress RESPIRATORY SYSTEM: Unlabored breathing , decreased breath sounds at bases HEART: S1 S2 regular rate and rhythm , ABDOMEN: Soft , mild distention but tenderness EXTREMITIES: No edema feet - Labs CBC & Chem 7: 12/14/22 05:50 12/14/22 05:50 Labs: Abnormal Lab Results - Last 24 Hours (Table) 12/13/22 12/14/22 12/14/22 Range/Units 20:03 05:50 05:50 WBC 15.61 H (4.50-10.00) X 10*3/uL RBC 3.21 L (4.10-5.60) X 10*6/uL Hgb 9.8 L (12.0-17.0) d/dL Hct 30.9 L (37.2-50.0) % MCHC 31.7 L (32.0-37.0) d/dL Eosinophils # (Manual) 0.47 H (0.04-0.35) X 10*3/uL BUN 34.2 H (9.0-27.0) mg/dL Est GFR (CKD-EPI) 48 L (>=60) BUN/Creatinine Ratio 22.80 H (12.00-20.00) Ratio POC Glucose (mg/dL) 171 H (70-110) mg/dL Calcium 8.0 L (8.7-10.3) mg/dL 12/14/22 Range/Units 11:45 WBC (4.50-10.00) X 10*3/uL RBC (4.10-5.60) X 10*6/uL Hgb (12.0-17.0) d/dL Hct (37.2-50.0) % MCHC (32.0-37.0) d/dL Eosinophils # (Manual) (0.04-0.35) X 10*3/uL BUN (9.0-27.0) mg/dL Est GFR (CKD-EPI) (>=60) BUN/Creatinine Ratio (12.00-20.00) Ratio POC Glucose (mg/dL) 135 H (70-110) mg/dL Calcium (8.7-10.3) mg/dL Assessment and Plan (1) Incarcerated inguinal hernia, bilateral Status: Acute Code(s): K40.00 - BI INGUINAL HERNIA, W OBST, W/O GANGRENE, NOT SPCF RECUR SNOMED Code(s): 339286255 (2) Leukocytosis Status: Acute Code(s): D72.829 - ELEVATED WHITE BLOOD CELL COUNT, UNSPECIFIED SNOMED Code(s): 485298044 Plan: 1patient present hospital abdominal pain in this patient has been diagnosed small bowel obstruction outside facility secondary to hernia, in this patient with evidence of elevated white count abdominal distention , patient did have evidence of incarcerated bilateral inguinal hernia status post operative repair with no mention of any incarcerated bowel or perforation 2patient with leukocytosis possible steroid related and the patient did have a normal CRP and procalcitonin is trending down 3-patient to continue with Zosyn 3.375 g every 8 hours x 10 days on discharge to the [facility] as per discussion with the [facility] [employer] for admitting team Dictation was produced using [employer] ([employer]) dictation software. please excuse any grammatical, word or spelling errors.
[2022-12-16 10:19] LABS: Neutrophils # (M) 11.86 X 10*3/uL (1.80-7.70)
--- NOTE | 2022-12-17 15:29 | CDI ---
Documentation Clarification Form Date: 12/17/2022 03:00:45 PM From: Lori Norman RN, CCDS Email: [email or web address] Admit Date: 12/08/2022 07:54:00 AM Patient Name: Doug Pemberton Visit Number: [id number] Discharge Date: 12/14/2022 05:02:00 PM ATTENTION: The Clinical Documentation Specialists (CDI) and [facility] Coding Staff appreciate your assistance in clarifying documentation. Please respond to the clarification below the line at the bottom and electronically sign. The CDI & [facility] Coding staff will review the response and follow-up if needed. Please note: Queries are made part of the Legal Health Record. If you have any questions, please contact the author of this message via ITS. Dr. Amilcar White The patient had and elevated white count and fever. Based on this information and the findings below, is there an additional diagnosis that is clinically appropriate for this patient? History/Risk Factors: GERD, COPD, HLD. Presented from another hospital. Complaints of diarrhea and pain in inguinal area. Admitted with bowel obstruction due to bilateral inguinal hernias, s/p BL incarcerated inguinal hernia repair. Clinical Indicators: 12/14 ID: "c/o abdominal pain in this patient diagnosed with small bowel obstruction outside facility secondary to hernia. Evidence of elevated white count and abdominal distention. Patient did have evidence of incarcerated bilateral inguinal hernia s/p repair with no mention of any incarcerated bowel or perforation." Discharge summary: "Bilateral inguinal hernia with incarceration as well as small bowel obstruction." 12/06-12/14 WBC: 17.6-18.1-18.5-12.9-15.61 12/06 lactic acid: 1.8 12/07 Procalcitonin: 1.29 Vitals signs: 12/06 Temp 100.5, BP 99/60 Treatment: 12/07 ID consult: "on presentation to the hospital did have fever 100.5 degrees and white count 17.6 which is up to 18.5 today." Antibiotics: IV Zosyn 3.375gm Q8H 12/07-12/14; 0.9 NS @50ml/hr Is there an additional diagnosis that is clinically appropriate for this patient? [ x ] Sepsis, present on admission [ ] SIRS, without underlying infectious process [ ] Other, please specify [ ] Unable to determine SIRS Criteria: 2 or more of the following may indicate SIRS Temperature < 96.8F (36C) or > 101.0F (38.3C) Heart Rate > 90 bpm Respiratory Rate > 20 breaths/min or PaCO2 < 32 mmHg White Blood Cell Count > 12,000 or < 4,000 cells/mm3 or > 10% bands MTDD
== END 2022-12-14 17:02 | DRG 853 ==
LOC: EC 17:57 → 5NMEDONC 20:31 → OBSVTOIN 12-08 07:54
PROVIDERS: ADMIT Hospitalist; ATTEND Hospitalist
PROC: 8E0W4CZ Robotic Assisted Procedure of Trunk Region, Percutaneous Endoscopic Approach (ICD-10-PCS; 2022-12-09)
PROC: 0YUA4JZ Supplement Bilateral Inguinal Region with Synthetic Substitute, Percutaneous Endoscopic Approach (ICD-10-PCS; principal; 2022-12-09 07:30)
PROC: 05HY33Z Insertion of Infusion Device into Upper Vein, Percutaneous Approach (ICD-10-PCS; 2022-12-14)
DX: A41.9 Sepsis, unspecified organism (principal); I71.00 Dissection of unspecified site of aorta; N17.0 Acute kidney failure with tubular necrosis; K40.00 Bilateral inguinal hernia, with obstruction, without gangrene, not specified as recurrent; K57.32 Diverticulitis of large intestine without perforation or abscess without bleeding; N13.6 Pyonephrosis; J44.1 Chronic obstructive pulmonary disease with (acute) exacerbation; I50.32 Chronic diastolic (congestive) heart failure; I13.0 Hypertensive heart and chronic kidney disease with heart failure and stage 1 through stage 4 chronic kidney disease, or unspecified chronic kidney disease; E87.0 Hyperosmolality and hypernatremia; K44.9 Diaphragmatic hernia without obstruction or gangrene; K45.8 Other specified abdominal hernia without obstruction or gangrene; N18.32 Chronic kidney disease, stage 3b; L89.321 Pressure ulcer of left buttock, stage 1; L89.622 Pressure ulcer of left heel, stage 2; L89.612 Pressure ulcer of right heel, stage 2; N28.1 Cyst of kidney, acquired; N31.9 Neuromuscular dysfunction of bladder, unspecified; N32.81 Overactive bladder; Z20.822 Contact with and (suspected) exposure to COVID-19; K21.9 Gastro-esophageal reflux disease without esophagitis; I71.20 Thoracic aortic aneurysm, without rupture, unspecified; E78.5 Hyperlipidemia, unspecified; E11.22 Type 2 diabetes mellitus with diabetic chronic kidney disease; Z79.52 Long term (current) use of systemic steroids; Z79.82 Long term (current) use of aspirin; Z79.899 Other long term (current) drug therapy; Z87.891 Personal history of nicotine dependence
CPT/HCPCS: 36410; 36415; 71045; 74176; 76770; 76937; 80048; 80053; 81001; 83036; 83605; 83735; 84145; 85025; 86140; 87040; 87636; 88302; 93005; 93306; 94150; 94640; 94760; 99285

== ENCOUNTER 2022-12-31 04:12 | Observation (INO) | payer MEDICARE, OTHER ==
[2022-12-31] MEDS ORDERED: IPRATROPIUM-ALBUTEROL 3 ML NEB INHALATION STA (04:22)
[2022-12-31] MEDS ORDERED: ALBUTEROL NEB (CONC) 2.5 MG/0.5 ML INHALATION STA (04:25)
[2022-12-31 04:55] LABS: ALT 45 U/L (4-49); AST 33 U/L (17-59); African American GFR (CKD) 51 (>60 ml/min/1.73 sqM); Albumin 3.1 g/dL (3.5-5.0); Alkaline Phosphatase 93 U/L (38-126); Anion Gap 4 mmol/L; Blood Urea Nitrogen 29 mg/dL (9-20); Calcium 7.8 mg/dL (8.4-10.2); Carbon Dioxide 32 mmol/L (22-30); Chloride 105 mmol/L (98-107); Glucose 134 mg/dL (74-99); Non-African American GFR(CKD) 44 (>60 ml/min/1.73 sqM); Potassium 4.3 mmol/L (3.5-5.1); Sodium 141 mmol/L (137-145); Total Bilirubin 0.3 mg/dL (0.2-1.3)
--- NOTE | 2022-12-31 04:56 | ED ---
SOB HPI - General Chief Complaint: Shortness of Breath Stated Complaint: SOB Time Seen by Provider: 12/31/22 04:29 Source: patient, EMS Mode of arrival: EMS - History of Present Illness Initial Comments: This patient is 77-year-old man with history of COPD transferred here from [facility] to have evaluation of increasing shortness of breath, decreased pulse oximetry, and nonproductive cough. Patient states symptoms were getting worse over the course the past night. He is not having any associated chest pain. No fevers were noted. The patient has history of aortic dissection but states not having any chest pain. MD Complaint: shortness of breath, cough -: hour(s) Severity scale (1-10): 0 Consistency: constant Improves With: oxygen Worsens With: nothing Known History Of: COPD Associated Symptoms: denies other symptoms Treatments Prior to Arrival: none - Related Data Home Medications Medication Instructions Recorded Confirmed Ipratropium-Albuterol Nebulize 3 ml INHALATION RT-Q6H@00,06,12,18 10/18/21 0 12/31/22 [Duoneb 0.5 mg-3 mg/3 ml Soln] Ascorbic Acid [Vitamin C] 1,000 mg PO DAILY 12/06/22 12/31/22 Aspirin EC [Ecotrin Low Dose] 81 mg PO DAILY 12/06/22 12/31/22 Fluticasone Nasal [place] [Flonase 2 spr EA NOSTRIL DAILY 12/06/22 12/31/22 Nasal [place]] Multivit-Mins/Iron/Folic/Lycop 1 tab PO DAILY 12/06/22 12/31/22 [Centrum Men's Tablet] Pantoprazole [Protonix] 40 mg PO BID 12/06/22 12/31/22 Tamsulosin [Flomax] 0.4 mg PO HS 12/06/22 12/31/22 Acetaminophen [Tylenol 8 Hour] 650 mg PO Q4H PRN 12/31/22 12/31/22 Ammonium Lactate Lotion 1 applic TOPICAL BID 12/31/22 12/31/22 [Lac-Hydrin 12% Lotion] Furosemide [Lasix] 20 mg PO BID@0900,1200 12/31/22 12/31/22 Loperamide [Imodium] 2 mg PO Q6H PRN 12/31/22 12/31/22 Magnesium Oxide [Mag-Ox] 400 mg PO DAILY 12/31/22 12/31/22 Potassium Chloride [Klor-Con M20] 20 meq PO DAILY 12/31/22 12/31/22 Psyllium Husk 100% [Metamucil 6 gm PO Q12H PRN 12/31/22 12/31/22 Packet] Z-Guard 1 applic TOPICAL BID 12/31/22 12/31/22 guaiFENesin [guaiFENesin ER] 600 mg PO BID 12/31/22 12/31/22 Previous Rx's Medication Instructions Recorded Ipratropium/Albuterol Sulfate 1 puff INHALATION RT-TID #1 09/15/18 [Combivent Respimat Inhaler] mist.inhal Acetaminophen Tab [Tylenol] 650 mg PO Q6HR PRN tab 12/14/22 Budesonide-Formot 160-4.5 Mcg 2 puff INHALATION RT-BID each 12/14/22 [Symbicort 160-4.5 Mcg Inhaler] Ipratropium-Albuterol Nebulize 3 ml INHALATION RT-Q2H PRN each 12/14/22 [Duoneb 0.5 mg-3 mg/3 ml Soln] Sennosides [Senokot] 8.6 mg PO BID PRN tab 12/14/22 Sodium Bicarbonate Tab 650 mg PO BID tab 12/14/22 Thiamine [Vitamin B-1] 100 mg PO DAILY tab 12/14/22 Azithromycin [Zithromax] 500 mg PO DAILY #3 tab 12/31/22 Furosemide [Lasix] 20 mg PO DAILY #0 12/31/22 Metoprolol Succinate (ER) [Toprol 25 mg PO DAILY #30 12/31/22 XL] predniSONE 10 mg PO DAILY #30 tab 12/31/22 Allergies Allergy/AdvReac Type Severity Reaction Status Date / Time No Known Allergies Allergy Verified 12/31/22 07:49 Review of Systems ROS Statement: Those systems with pertinent positive or pertinent negative responses have been documented in the HPI. ROS Other: All systems not noted in ROS Statement are negative. Constitutional: Reports: weakness. Denies: fever, chills Respiratory: Reports: cough, dyspnea, wheezes. Denies: hemoptysis Cardiovascular: Denies: chest pain, palpitations, edema Gastrointestinal: Denies: abdominal pain, nausea, vomiting Genitourinary: Denies: dysuria, hematuria Musculoskeletal: Denies: back pain Skin: Denies: rash Neurological: Denies: headache, weakness, numbness Past Medical History Past Medical History: COPD, Dialysis, GERD/Reflux, Hyperlipidemia, Hypertension Additional Past Medical History / Comment(s): Neuromuscular dysfunction of bladder, iron deficiency anemia, neurogenic bladder, pressure ulcers, dissection of thoracic aorta, no longer doing dialysis, previous ETOH abuse, MS 2019, CHF History of Any Multi-Drug Resistant Organisms: ESBL Date of last positivie culture/infection: 02/14/19 ESBL-E.coli MDRO Source:: Urine Past Surgical History: No Surgical Hx Reported Additional Past Surgical History / Comment(s): May 2018 thoracic aorta repair at [facility] Past Anesthesia/Blood Transfusion Reactions: No Reported Reaction Past Psychological History: No Psychological Hx Reported Smoking Status: Former smoker Past Alcohol Use History: Abuse, Daily Past Drug Use History: None Reported General Exam General appearance: alert, in distress Head exam: Present: atraumatic, normocephalic Eye exam: Present: normal appearance. Absent: scleral icterus, conjunctival injection Neck exam: Present: normal inspection Respiratory exam: Present: respiratory distress, wheezes, rhonchi. Absent: rales, stridor, chest wall tenderness, accessory muscle use, decreased breath sounds Cardiovascular Exam: Present: tachycardia, irregular rhythm, systolic murmur. Absent: diastolic murmur, rubs, gallop GI/Abdominal exam: Present: soft. Absent: distended, tenderness, guarding, rebound, rigid, mass, pulsatile mass, hernia Extremities exam: Present: normal inspection, normal capillary refill. Absent: pedal edema, calf tenderness Back exam: Present: normal inspection. Absent: CVA tenderness (R), CVA tenderness (L) Neurological exam: Present: alert Skin exam: Present: warm, dry, intact, normal color. Absent: rash Course Vital Signs 12/31/22 12/31/22 12/31/22 04:16 04:23 04:27 Temperature 99.5 F Pulse Rate 120 H 118 H 110 H Respiratory 28 H 28 H Rate Blood Pressure 125/100 95/62 O2 Sat by Pulse 95 96 Oximetry 12/31/22 12/31/22 12/31/22 04:32 05:26 07:10 Temperature 98.2 F Pulse Rate 108 H 107 H 99 Respiratory 28 H 24 22 Rate Blood Pressure 117/65 137/73 O2 Sat by Pulse 100 100 Oximetry 12/31/22 12/31/22 12/31/22 08:04 08:15 11:02 Temperature 99.1 F Pulse Rate 95 101 H 96 Respiratory 20 Rate Blood Pressure 135/71 O2 Sat by Pulse 97 99 Oximetry 12/31/22 12/31/22 12/31/22 11:05 11:16 14:49 Temperature 98.9 F Pulse Rate 104 H 108 H 92 Respiratory 20 Rate Blood Pressure 131/57 O2 Sat by Pulse 97 Oximetry Medical Decision Making - Medical Decision Making Patient is 77-year-old man with COPD arriving with dyspnea and low pulse oximetry readings. He is given double albuterol Atrovent treatment on arrival, placed on higher flow nasal cannula and his sats did improve. The patient did have elevated d-dimer and therefore had CT to rule out pulmonary embolism. Patient will be admitted for further COPD treatment his dyspnea has improved. The patient had chest x-ray which I interpreted as being negative for acute infiltrate or pneumothorax. COPD changes are present aortic graft visualized The patient had CT of the chest which I interpreted to show no definite pulmonary embolism. I do not see any change in the patient's chronic dissection Was pt. sent in by a medical professional or institution (, [facility], RADIOGRAPHIC TECHNOLOGIST, urgent care, hospital, or halfway...) When possible be specific @ -[No] Did you speak to anyone other than the patient for history (EMS, parent, family, police, friend...)? What history was obtained from this source @ -[No] Did you review nursing and triage notes (agree or disagree)? Why? @ -[I reviewed and agree with nursing and triage notes] Were old charts reviewed (outside hosp., previous admission, EMS record, old EKG, old radiological studies, urgent care reports/EKG's, halfway records)? Report findings @ -[No old charts were reviewed] Differential Diagnosis (chest pain, altered mental status, abdominal pain women, abdominal pain men, vaginal bleeding, weakness, fever, dyspnea, syncope, headache, dizziness, GI bleed, back pain, seizure, CVA, palpatations, mental health, musculoskeletal)? @ -[not applicable] EKG interpreted by me (3pts min.). @ -[I interpreted As above] X-rays interpreted by me (1pt min.). @ -[I interpreted as above CT interpreted by me (1pt min.). @ -[I interpreted as above U/S interpreted by me (1pt. min.). @ -[None done] What testing was considered but not performed or refused? (CT, X-rays, U/S, labs)? Why? @ -[None] What meds were considered but not given or refused? Why? @ -[None] Did you discuss the management of the patient with other professionals (professionals i.e. , PA, RADIOGRAPHIC TECHNOLOGIST, lab, RT, psych nurse, perinatal social worker, distributing clerk, teacher, immigration services officer, housing case manager)? Give summary @ -[Case discussed with admitting physician Was smoking cessation discussed for >3mins.? @ -[No] Was critical care preformed (if so, how long)? @ -[No] Were there social determinants of health that impacted care today? How? (Homelessness, low income, unemployed, alcoholism, drug addiction, transportation, low edu. Level, literacy, decrease access to med. care, usp, rehab)? @ -[No] Was there de-escalation of care discussed even if they declined (Discuss DNR or withdrawal of care, Hospice)? DNR status @ -[No] What co-morbidities impacted this encounter? (DM, HTN, Smoking, COPD, CAD, Cancer, CVA, ARF, Chemo, Hep., AIDS, mental health diagnosis, sleep apnea, morbid obesity)? @ -[Underlying COPD Was patient admitted / discharged? Hospital course, mention meds given and route, prescriptions, significant lab abnormalities, going to OR and other pertinent info. @ -[Admitted, see above Undiagnosed new problem with uncertain prognosis? @ -[No] Drug Therapy requiring intensive monitoring for toxicity (Heparin, Nitro, Insulin, Cardizem)? @ -[No] Were any procedures done? @ -[No] Diagnosis/symptom? @ -[Acute exacerbation of COPD Acute, or Chronic, or Acute on Chronic? @ -[Acute on chronic Uncomplicated (without systemic symptoms) or Complicated (systemic symptoms)? @ -[Uncomplicated Side effects of treatment? @ -[No] Exacerbation, Progression, or Severe Exacerbation? @ -[No] Poses a threat to life or bodily function? How? (Chest pain, USA, MS, pneumonia, PE, COPD, DKA, ARF, appy, cholecystitis, CVA, Diverticulitis, Homicidal, Suicidal, threat to staff... and all critical care pts) @ -[Yes, worsening COPD may lead to respiratory failure and - Lab Data Result diagrams: 12/31/22 04:30 12/31/22 04:30 Lab Results 12/31/22 12/31/22 12/31/22 Range/Units 04:30 04:30 04:30 WBC 10.4 (3.8-10.6) k/uL RBC 3.06 L (4.30-5.90) m/uL Hgb 9.7 L (13.0-17.5) gm/dL Hct 30.3 L (39.0-53.0) % MCV 98.9 (80.0-100.0) fL MCH 31.6 (25.0-35.0) pg MCHC 32.0 (31.0-37.0) g/dL RDW 14.3 (11.5-15.5) % Plt Count 261 (150-450) k/uL MPV 9.9 Neutrophils % 77 % Lymphocytes % 11 % Monocytes % 6 % Eosinophils % 5 % Basophils % 0 % Neutrophils # 8.0 H (1.3-7.7) k/uL Lymphocytes # 1.1 (1.0-4.8) k/uL Monocytes # 0.6 (0-1.0) k/uL Eosinophils # 0.5 (0-0.7) k/uL Basophils # 0.0 (0-0.2) k/uL Hypochromasia Slight D-Dimer 6.12 H (<0.60) mg/L FEU Sodium 141 (137-145) mmol/L Potassium 4.3 (3.5-5.1) mmol/L Chloride 105 (98-107) mmol/L Carbon Dioxide 32 H (22-30) mmol/L Anion Gap 4 mmol/L BUN 29 H (9-20) mg/dL Creatinine 1.53 H (0.66-1.25) mg/dL Est GFR (CKD-EPI)AfAm 51 (>60 ml/min/1.73 sqM) Est GFR (CKD-EPI)NonAf 44 (>60 ml/min/1.73 sqM) Glucose 134 H (74-99) mg/dL Plasma Lactic Acid Francis (0.7-2.0) mmol/L Calcium 7.8 L (8.4-10.2) mg/dL Total Bilirubin 0.3 (0.2-1.3) mg/dL AST 33 (17-59) U/L ALT 45 (4-49) U/L Alkaline Phosphatase 93 (38-126) U/L Troponin I (0.000-0.034) ng/mL NT-Pro-B Natriuret Pep pg/mL Total Protein 6.0 L (6.3-8.2) g/dL Albumin 3.1 L (3.5-5.0) g/dL Influenza Type A (PCR) (Not Detectd) Influenza Type B (PCR) (Not Detectd) RSV (PCR) (Not Detectd) SARS-CoV-2 (PCR) (Not Detectd) 12/31/22 12/31/22 12/31/22 Range/Units 04:30 04:30 04:30 WBC (3.8-10.6) k/uL RBC (4.30-5.90) m/uL Hgb (13.0-17.5) gm/dL Hct (39.0-53.0) % MCV (80.0-100.0) fL MCH (25.0-35.0) pg MCHC (31.0-37.0) g/dL RDW (11.5-15.5) % Plt Count (150-450) k/uL MPV Neutrophils % % Lymphocytes % % Monocytes % % Eosinophils % % Basophils % % Neutrophils # (1.3-7.7) k/uL Lymphocytes # (1.0-4.8) k/uL Monocytes # (0-1.0) k/uL Eosinophils # (0-0.7) k/uL Basophils # (0-0.2) k/uL Hypochromasia D-Dimer (<0.60) mg/L FEU Sodium (137-145) mmol/L Potassium (3.5-5.1) mmol/L Chloride (98-107) mmol/L Carbon Dioxide (22-30) mmol/L Anion Gap mmol/L BUN (9-20) mg/dL Creatinine (0.66-1.25) mg/dL Est GFR (CKD-EPI)AfAm (>60 ml/min/1.73 sqM) Est GFR (CKD-EPI)NonAf (>60 ml/min/1.73 sqM) Glucose (74-99) mg/dL Plasma Lactic Acid Francis 0.8 (0.7-2.0) mmol/L Calcium (8.4-10.2) mg/dL Total Bilirubin (0.2-1.3) mg/dL AST (17-59) U/L ALT (4-49) U/L Alkaline Phosphatase (38-126) U/L Troponin I <0.012 (0.000-0.034) ng/mL NT-Pro-B Natriuret Pep 2200 pg/mL Total Protein (6.3-8.2) g/dL Albumin (3.5-5.0) g/dL Influenza Type A (PCR) (Not Detectd) Influenza Type B (PCR) (Not Detectd) RSV (PCR) (Not Detectd) SARS-CoV-2 (PCR) (Not Detectd) 12/31/22 Range/Units 04:40 WBC (3.8-10.6) k/uL RBC (4.30-5.90) m/uL Hgb (13.0-17.5) gm/dL Hct (39.0-53.0) % MCV (80.0-100.0) fL MCH (25.0-35.0) pg MCHC (31.0-37.0) g/dL RDW (11.5-15.5) % Plt Count (150-450) k/uL MPV Neutrophils % % Lymphocytes % % Monocytes % % Eosinophils % % Basophils % % Neutrophils # (1.3-7.7) k/uL Lymphocytes # (1.0-4.8) k/uL Monocytes # (0-1.0) k/uL Eosinophils # (0-0.7) k/uL Basophils # (0-0.2) k/uL Hypochromasia D-Dimer (<0.60) mg/L FEU Sodium (137-145) mmol/L Potassium (3.5-5.1) mmol/L Chloride (98-107) mmol/L Carbon Dioxide (22-30) mmol/L Anion Gap mmol/L BUN (9-20) mg/dL Creatinine (0.66-1.25) mg/dL Est GFR (CKD-EPI)AfAm (>60 ml/min/1.73 sqM) Est GFR (CKD-EPI)NonAf (>60 ml/min/1.73 sqM) Glucose (74-99) mg/dL Plasma Lactic Acid Francis (0.7-2.0) mmol/L Calcium (8.4-10.2) mg/dL Total Bilirubin (0.2-1.3) mg/dL AST (17-59) U/L ALT (4-49) U/L Alkaline Phosphatase (38-126) U/L Troponin I (0.000-0.034) ng/mL NT-Pro-B Natriuret Pep pg/mL Total Protein (6.3-8.2) g/dL Albumin (3.5-5.0) g/dL Influenza Type A (PCR) Not Detected (Not Detectd) Influenza Type B (PCR) Not Detected (Not Detectd) RSV (PCR) Not Detected (Not Detectd) SARS-CoV-2 (PCR) Not Detected (Not Detectd) - EKG Data -: EKG Interpreted by Sc EKG shows normal: sinus rhythm (With frequent PVCs), axis (Indeterminate), intervals, QRS complexes (Right ventricular conduction delay) Rate: tachycardia (Rate 113 bpm) Interpretation: nonspecific ST-T wave changes Disposition Clinical Impression: COPD (chronic obstructive pulmonary disease) Disposition: ADMITTED IP TO THIS [facility] Condition: Fair
[2022-12-31] MEDS ORDERED: ENOXAPARIN 60 MG/0.6 ML SYRINGE SQ ONE (05:30)
[2022-12-31 06:46] LABS: Basophils % (A) 0 %; Eosinophils # (A) 0.5 k/uL (0-0.7); Eosinophils % (A) 5 %; HCT 30.3 % (39.0-53.0); HGB 9.7 gm/dL (13.0-17.5); Hypochromasia Slight; Lymphocytes # (A) 1.1 k/uL (1.0-4.8); Lymphocytes % (A) 11 %; MCH 31.6 pg (25.0-35.0); MCV 98.9 fL (80.0-100.0); Mean Platelet Volume 9.9; Monocytes # (A) 0.6 k/uL (0-1.0); Monocytes % (A) 6 %; Neutrophils % (A) 77 %; Platelet Count 261 k/uL (150-450); RBC 3.06 m/uL (4.30-5.90); RDW 14.3 % (11.5-15.5); WBC 10.4 k/uL (3.8-10.6)
[2022-12-31] MEDS ORDERED: NALOXONE 0.4 MG/ML 1 ML VIAL IVP PRN (07:11)
[2022-12-31] MEDS ORDERED: IPRATROPIUM-ALBUTEROL 3 ML NEB INHALATION PRN ×2 (07:11→12:48)
[2022-12-31] MEDS ORDERED: ACETAMINOPHEN TAB 325 MG TAB PO PRN ×3 (07:11→12:48)
--- NOTE | 2022-12-31 07:44 | CT ---
EXAMINATION TYPE: CT chest angio for PE DATE OF EXAM: 12/31/2022 COMPARISON: Radiograph 12/31/2022, CT 01/26/2021 HISTORY: 77 year-old male shortness of breath, dyspnea, possible PE TECHNIQUE: Contiguous axial scanning of the chest performed with IV Contrast, patient injected with 7 0 mL of Isovue 370. Coronal/sagittal MIP reconstructions performed. CT DLP: 269.7 mGycm Automated exposure control for dose reduction was used. FINDINGS: The heart is normal size without pericardial effusion. No flattening of the interventricular septum r eflux of contrast into the hepatic veins. Suspect interposition graft along the ascending aorta. Perigraft fluid here measuring up tor 1 cm thi ck is similar. Additional endovascular stent graft of the mid to distal arch and descending thoracic aorta. Aneurysm al descending thoracic aorta currently measuring up to 4.9 x 4.9 cm versus 4.7 cm back in 202. Some slight enlargement of the little traverse sac from that time. At the level of the lower descending thoracic aorta, we note the patient's chronic dissection that ex tends down into the abdomen and beyond the [id number]. The major visceral arteries arise from the enhancing true lumen. Satisfactory opacification pulmonary arterial system. Mildly enlarged caliber to the main right and l eft pulmonary arteries up to 2.6 cm may reflect underlying pulmonary hypertension. No evidence for pulmonary embolus. Lungs show advanced emphysematous change. There is some mild patchy peribronchovascular and periphera l opacities in the lower lungs. Possible trace effusions and septal lines in the upper lungs. Some la yering secretions in the right mainstem bronchus. Tiny hiatal hernia. Left renal cyst measuring 2.6 cm. Bones: Moderate degenerative disc disease throughout. IMPRESSION: 1. NO EVIDENCE FOR PULMONARY EMBOLUS. 2. PREVIOUS INTERPOSITION GRAFT ASCENDING AORTA WITH SIMILAR PERIGRAFT FLUID COMPARED TO 202. ALSO, PREVIOUS ENDOVASCULAR STENT GRAFT MID TO DISTAL ARCH AND DESCENDING THORACIC AORTA. THE PENOBSCOT SAC IS MINIMALLY MORE DILATED COMPARED TO 202 AT 4.9 CM VERSUS 4.7 CM PREVIOUSLY. 3. THE PATIENT'S CHRONIC DISSECTION IS SEEN BELOW THE STENT GRAFT EXTENDING DOWN INTO THE ABDOMEN BEY OND THE [id number] AND HAS AN OVERALL SIMILAR APPEARANCE TO 202. 4. COPD WITH ADVANCED EMPHYSEMA. 5. SOME SEPTAL LINES IN THE UPPER LUNGS. MILD PATCHY DENSITIES IN THE LOWER LUNGS, PULMONARY ARTERIAL HYPERTENSION, AND TRACE PLEURAL EFFUSIONS. FINDINGS ARE NONSPECIFIC. POSSIBLE CHANGES RELATED TO PUL MONARY VASCULAR CONGESTION. EARLY ATYPICAL/COVID PNEUMONIA VERSUS EARLY ASPIRATION PNEUMONITIS ARE AL SO IN THE DIFFERENTIAL. CLINICALLY CORRELATE.
[2022-12-31] MEDS ORDERED: SYMBICORT 160-4.5 MCG INHALER INHALATION SCH ×2 (08:00→20:00)
[2022-12-31] MEDS ORDERED: ALBUTEROL NEB (CONC) 2.5 MG/0.5 ML INHALATION SCH (08:00)
--- NOTE | 2022-12-31 08:03 | XR ---
EXAMINATION TYPE: XR chest 2V DATE OF EXAM: 12/31/2022 COMPARISON: 12/07/2022 HISTORY: 77-year-old male TECHNIQUE: PA and lateral views FINDINGS: Heart normal size. Endovascular aortic stent graft arch and descending thoracic aorta. Median sternot ria wires are present. Hyperinflation with COPD changes. Bilateral nipple shadows. Interstitium is sl ightly more pronounced than prior exam. No sizable pleural effusion on the lateral view. IMPRESSION: COPD. Previous endovascular stent graft of the arch and descending thoracic aorta. Interstitium is sl ightly more pronounced from prior exam. Correlate to exclude early pulmonary vascular congestion.
[2022-12-31] MEDS: IPRATROPIUM-ALBUTEROL 3 ML NEB INHALATION SCH ×2 (08:04→11:05)
[2022-12-31] MEDS ORDERED: AZITHROMYCIN 500 MG TAB PO SCH (09:00)
[2022-12-31] MEDS ORDERED: predniSONE 20 MG TAB PO SCH (09:00)
[2022-12-31 11:09] VITALS: RESP 20
[2022-12-31] MEDS ORDERED: LOPERAMIDE 2 MG CAP PO PRN (12:48)
[2022-12-31] MEDS ORDERED: SENNOSIDES 8.6 MG TAB PO PRN (12:48)
[2022-12-31] MEDS ORDERED: PSYLLIUM HUSK 100% 6 GM PACKET PO PRN (12:48)
--- NOTE | 2022-12-31 13:56 | P.HPIM ---
History of Present Illness Patient is a 77 year-old male with known history of COPD and oxygen at home is 2 L of oxygen, patient is coming from [facility]. Patient was hypoxic at the [facility]. Patient had a significant clinical improvement I believe was given Lasix and breathing treatments patient is presently saturating at 99% on 2 L of oxygen. Patient feels much better. Patient doesn't have any pneumonia on the chest x-ray patient does have history of congestive heart failure no pulmonary edema on the x-ray patient appears to be euvolemic at this time. Patient is bit tachycardic, CT angiogram that was done here didn't show any significant abnormality there is no TSH available which can be done as an outpatient. Patient takes metoprolol 12.5 as an outpatient patient is a sinus tachycardia. Patient was comparing of cough without sputum production REVIEW OF SYSTEMS: CONSTITUTIONAL: No fever, no malaise, no fatigue. HEENT: No recent visual problems or hearing problems. Denied any sore throat. CARDIOVASCULAR: No chest pain, orthopnea, PND, no palpitations, no syncope. PULMONARY: no hemoptysis. GASTROINTESTINAL: No diarrhea, no nausea, no vomiting, no abdominal pain. NEUROLOGICAL: No headaches, no weakness, no numbness. HEMATOLOGICAL: Denies any bleeding or petechiae. GENITOURINARY: Denies any burning micturition, frequency, or urgency. MUSCULOSKELETAL/RHEUMATOLOGICAL: Denies any joint pain, swelling, or any muscle pain. ENDOCRINE: Denies any polyuria or polydipsia. The rest of the 14-point review of systems is negative. PHYSICAL EXAMINATION: GENERAL: The patient is alert and oriented x3, thin built cachectic male HEENT: Pupils are round and equally reacting to light. EOMI. No scleral icterus. No con junctival pallor. Normocephalic, atraumatic. No pharyngeal erythema. No thyromegaly. CARDIOVASCULAR: S1 and S2 present. No murmurs, rubs, or gallops. PULMONARY: Chest is clear to auscultation, no wheezing or crackles. ABDOMEN: Soft, nontender, nondistended, normoactive bowel sounds. No palpable o rganomegaly. MUSCULOSKELETAL: No joint swelling or deformity. EXTREMITIES: No cyanosis, clubbing, or pedal edema. NEUROLOGICAL: Gross neurological examination did not reveal any focal deficits. SKIN: No rashes. Assessment and plan -Acute on chronic hypoxic and hypercapnic respiratory failure secondary to COPD exacerbation improved patient will be discharged today to [facility] as his respiratory status is at his baseline and actually better than his baseline patient had a FEV1 of around 20% and severe emphysema. Congestive heart failure chronic diastolic dysfunction grade 1 without any acute exacerbation patient will be resumed on his home medications, but cutting down the dose of Lasix -Chronic kidney disease stage III -Hypertension -Hyperlipidemia -Depression -Sinus tachycardia chronic, mild hyponatremia dose of Lasix will be cut down Patient will be discharged back to [facility] Past Medical History Past Medical History: COPD, Dialysis, GERD/Reflux, Hyperlipidemia, Hypertension Additional Past Medical History / Comment(s): Neuromuscular dysfunction of bladder, iron deficiency anemia, neurogenic bladder, pressure ulcers, dissection of thoracic aorta, no longer doing dialysis, previous ETOH abuse, [place] 2018, CHF History of Any Multi-Drug Resistant Organisms: ESBL Date of last positivie culture/infection: 02/14/19 ESBL-E.coli MDRO Source:: Urine Past Surgical History: No Surgical Hx Reported Additional Past Surgical History / Comment(s): May 2018 thoracic aorta repair at [facility] Past Anesthesia/Blood Transfusion Reactions: No Reported Reaction Past Psychological History: No Psychological Hx Reported Smoking Status: Former smoker Past Alcohol Use History: Abuse, Daily Past Drug Use History: None Reported Medications and Allergies Home Medications Medication Instructions Recorded Confirmed Type Ipratropium/Albuterol Sulfate 1 puff INHALATION RT-TID #1 09/15/18 12/31/22 Rx [Combivent Respimat Inhaler] mist.inhal Ipratropium-Albuterol Nebulize 3 ml INHALATION RT-Q6H@00,06,,18 10/18/21 12/31/22 History [Duoneb 0.5 mg-3 mg/3 ml Soln] Ascorbic Acid [Vitamin C] 1,000 mg PO DAILY 12/06/22 12/31/22 History Aspirin EC [Ecotrin Low Dose] 81 mg PO DAILY 12/06/22 12/31/22 History Fluticasone Nasal [place] [Flonase 2 spr EA NOSTRIL DAILY 12/06/22 12/31/22 History Nasal [place]] Multivit-Mins/Iron/Folic/Lycop 1 tab PO DAILY 12/06/22 12/31/22 History [Centrum Men's Tablet] Pantoprazole [Protonix] 40 mg PO BID 12/06/22 12/31/22 History Tamsulosin [Flomax] 0.4 mg PO HS 12/06/22 12/31/22 History Acetaminophen Tab [Tylenol] 650 mg PO Q6HR PRN tab 12/14/22 12/31/22 Rx Budesonide-Formot 160-4.5 Mcg 2 puff INHALATION RT-BID each 12/14/22 12/31/22 Rx [Symbicort 160-4.5 Mcg Inhaler] Ipratropium-Albuterol Nebulize 3 ml INHALATION RT-Q2H PRN each 12/14/22 12/31/22 Rx [Duoneb 0.5 mg-3 mg/3 ml Soln] Sennosides [Senokot] 8.6 mg PO BID PRN tab 12/14/22 12/31/22 Rx Sodium Bicarbonate Tab 650 mg PO BID tab 12/14/22 12/31/22 Rx Thiamine [Vitamin B-1] 100 mg PO DAILY tab 12/14/22 12/31/22 Rx Acetaminophen [Tylenol 8 Hour] 650 mg PO Q4H PRN 12/31/22 12/31/22 History Ammonium Lactate Lotion 1 applic TOPICAL BID 12/31/22 12/31/22 History [Lac-Hydrin 12% Lotion] Azithromycin [Zithromax] 500 mg PO DAILY #3 tab 12/31/22 Rx Furosemide [Lasix] 20 mg PO BID@0900,1200 12/31/22 12/31/22 History Furosemide [Lasix] 40 mg PO DAILY 12/31/22 12/31/22 History Loperamide [Imodium] 2 mg PO Q6H PRN 12/31/22 12/31/22 History Magnesium Oxide [Mag-Ox] 400 mg PO DAILY 12/31/22 12/31/22 History Metoprolol Succinate (ER) [Toprol 25 mg PO DAILY #30 12/31/22 12/31/22 Rx XL] Potassium Chloride [Klor-Con M20] 20 meq PO DAILY 12/31/22 12/31/22 History Psyllium Husk 100% [Metamucil 6 gm PO Q12H PRN 12/31/22 12/31/22 History Packet] Z-Guard 1 applic TOPICAL BID 12/31/22 12/31/22 History guaiFENesin [guaiFENesin ER] 600 mg PO BID 12/31/22 12/31/22 History predniSONE 10 mg PO DAILY #30 tab 12/31/22 Rx Allergies Allergy/AdvReac Type Severity Reaction Status Date / Time No Known Allergies Allergy Verified 12/31/22 07:49 Physical Exam Vitals: Vital Signs Temp Pulse Resp BP Pulse Ox 12/31/22 11:16 108 H 12/31/22 11:05 104 H 12/31/22 11:02 99.1 F 96 20 135/71 99 12/31/22 08:15 101 H 12/31/22 08:04 95 97 12/31/22 07:10 98.2 F 99 22 137/73 100 12/31/22 05:26 107 H 24 117/65 100 12/31/22 04:32 108 H 28 H 12/31/22 04:27 110 H 12/31/22 04:23 118 H 28 H 95/62 96 12/31/22 04:16 99.5 F 120 H 28 H 125/100 95 Intake and Output 12/30/22 12/31/22 12/31/22 22:59 06:59 14:59 Other: Weight 54.431 kg Results CBC & Chem 7: 12/31/22 04:30 12/31/22 04:30 Labs: Abnormal Lab Results - Last 24 Hours (Table) 12/31/22 12/31/22 12/31/22 Range/Units 04:30 04:30 04:30 RBC 3.06 L (4.30-5.90) m/uL Hgb 9.7 L (13.0-17.5) gm/dL Hct 30.3 L (39.0-53.0) % Neutrophils # 8.0 H (1.3-7.7) k/uL D-Dimer 6.12 H (<0.60) mg/L FEU Carbon Dioxide 32 H (22-30) mmol/L BUN 29 H (9-20) mg/dL Creatinine 1.53 H (0.66-1.25) mg/dL Glucose 134 H (74-99) mg/dL Calcium 7.8 L (8.4-10.2) mg/dL Total Protein 6.0 L (6.3-8.2) g/dL Albumin 3.1 L (3.5-5.0) g/dL
--- NOTE | 2022-12-31 13:58 | P.DS ---
Providers Date of admission: 12/31/22 07:12 Attending physician: More Duff MD Primary care physician: [facility] Course: Patient is a 77 year-old male with known history of COPD and oxygen at home is 2 L of oxygen, patient is coming from [facility]. Patient was hypoxic at the [facility]. Patient had a significant clinical improvement I believe was given Lasix and breathing treatments patient is presently saturating at 99% on 2 L of oxygen. Patient feels much better. Patient doesn't have any pneumonia on the chest x-ray patient does have history of congestive heart failure no pulmonary edema on the x-ray patient appears to be euvolemic at this time. Patient is bit tachycardic, CT angiogram that was done here didn't show any significant abnormality there is no TSH available which can be done as an outpatient. Patient takes metoprolol 12.5 as an outpatient patient is a sinus tachycardia. Patient was comparing of cough without sputum production REVIEW OF SYSTEMS: CONSTITUTIONAL: No fever, no malaise, no fatigue. HEENT: No recent visual problems or hearing problems. Denied any sore throat. CARDIOVASCULAR: No chest pain, orthopnea, PND, no palpitations, no syncope. PULMONARY: no hemoptysis. GASTROINTESTINAL: No diarrhea, no nausea, no vomiting, no abdominal pain. NEUROLOGICAL: No headaches, no weakness, no numbness. HEMATOLOGICAL: Denies any bleeding or petechiae. GENITOURINARY: Denies any burning micturition, frequency, or urgency. MUSCULOSKELETAL/RHEUMATOLOGICAL: Denies any joint pain, swelling, or any muscle pain. ENDOCRINE: Denies any polyuria or polydipsia. The rest of the 14-point review of systems is negative. PHYSICAL EXAMINATION: GENERAL: The patient is alert and oriented x3, thin built cachectic male HEENT: Pupils are round and equally reacting to light. EOMI. No scleral icterus. No conjunctival pallor. Normocephalic, atraumatic. No pharyngeal erythema. No thyromegaly. CARDIOVASCULAR: S1 and S2 present. No murmurs, rubs, or gallops. PULMONARY: Chest is clear to auscultation, no wheezing or crackles. ABDOMEN: Soft, nontender, nondistended, normoactive bowel sounds. No palpable organomegaly. MUSCULOSKELETAL: No joint swelling or deformity. EXTREMITIES: No cyanosis, clubbing, or pedal edema. NEUROLOGICAL: Gross neurological examination did not reveal any focal deficits. SKIN: No rashes. Assessment and plan -Acute on chronic hypoxic and hypercapnic respiratory failure secondary to COPD exacerbation improved patient will be discharged today to [facility] as his respiratory status is at his baseline and actually better than his baseline patient had a FEV1 of around 20% and severe emphysema. Congestive heart failure chronic diastolic dysfunction grade 1 without any acute exacerbation patient will be resumed on his home medications, but cutting down the dose of Lasix -Chronic kidney disease stage III -Hypertension -Hyperlipidemia -Depression -Sinus tachycardia chronic, mild hyponatremia dose of Lasix will be cut down Patient will be discharged back to [facility] Patient Condition at Discharge: Fair Plan - Discharge Summary New Discharge Prescriptions: New Azithromycin [Zithromax] 500 mg PO DAILY #3 tab predniSONE 10 mg PO DAILY #30 tab Continue Ipratropium/Albuterol Sulfate [Combivent Respimat Inhaler] 1 puff INHALATION RT-TID #1 mist.inhal Fluticasone Nasal [place] [Flonase Nasal [place]] 2 spr EA NOSTRIL DAILY Multivit-Mins/Iron/Folic/Lycop [Centrum Men's Tablet] 1 tab PO DAILY Pantoprazole [Protonix] 40 mg PO BID Tamsulosin [Flomax] 0.4 mg PO HS Ipratropium-Albuterol Nebulize [Duoneb 0.5 mg-3 mg/3 ml Soln] 3 ml INHALATION RT-Q2H PRN each PRN Reason: Shortness Of Breath Or Wheezing Sennosides [Senokot] 8.6 mg PO BID PRN tab PRN Reason: Constipation Sodium Bicarbonate Tab 650 mg PO BID tab Psyllium Husk 100% [Metamucil Packet] 6 gm PO Q12H PRN PRN Reason: Diarrhea guaiFENesin [guaiFENesin ER] 600 mg PO BID Potassium Chloride [Klor-Con M20] 20 meq PO DAILY Ipratropium-Albuterol Nebulize [Duoneb 0.5 mg-3 mg/3 ml Soln] 3 ml INHALATION RT-Q6H@00,06,12,18 Ascorbic Acid [Vitamin C] 1,000 mg PO DAILY Aspirin EC [Ecotrin Low Dose] 81 mg PO DAILY Budesonide-Formot 160-4.5 Mcg [Symbicort 160-4.5 Mcg Inhaler] 2 puff INHALATION RT-BID each Acetaminophen Tab [Tylenol] 650 mg PO Q6HR PRN tab PRN Reason: Fever And/ Or Pain Thiamine [Vitamin B-1] 100 mg PO DAILY tab Loperamide [Imodium] 2 mg PO Q6H PRN PRN Reason: Diarrhea Acetaminophen [Tylenol 8 Hour] 650 mg PO Q4H PRN PRN Reason: general discomfort Furosemide [Lasix] 20 mg PO BID@0900,1200 Ammonium Lactate Lotion [Lac-Hydrin 12% Lotion] 1 applic TOPICAL BID Magnesium Oxide [Mag-Ox] 400 mg PO DAILY Z-Guard 1 applic TOPICAL BID Changed Furosemide [Lasix] 20 mg PO DAILY #0 Metoprolol Succinate (ER) [Toprol XL] 25 mg PO DAILY #30 Discharge Medication List Ipratropium/Albuterol Sulfate [Combivent Respimat Inhaler] 1 puff INHALATION RT- TID #1 mist.inhal 09/15/18 [Rx] Ipratropium-Albuterol Nebulize [Duoneb 0.5 mg-3 mg/3 ml Soln] 3 ml INHALATION RT-Q6H@00,06,12,18 10/18/21 [History] Ascorbic Acid [Vitamin C] 1,000 mg PO DAILY 12/06/22 [History] Aspirin EC [Ecotrin Low Dose] 81 mg PO DAILY 12/06/22 [History] Fluticasone Nasal [place] [Flonase Nasal [place]] 2 spr EA NOSTRIL DAILY 12/06/22 [History] Multivit-Mins/Iron/Folic/Lycop [Centrum Men's Tablet] 1 tab PO DAILY 12/06/22 [History] Pantoprazole [Protonix] 40 mg PO BID 12/06/22 [History] Tamsulosin [Flomax] 0.4 mg PO HS 12/06/22 [History] Acetaminophen Tab [Tylenol] 650 mg PO Q6HR PRN tab 12/14/22 [Rx] Budesonide-Formot 160-4.5 Mcg [Symbicort 160-4.5 Mcg Inhaler] 2 puff INHALATION RT-BID each 12/14/22 [Rx] Ipratropium-Albuterol Nebulize [Duoneb 0.5 mg-3 mg/3 ml Soln] 3 ml INHALATION RT-Q2H PRN each 12/14/22 [Rx] Sennosides [Senokot] 8.6 mg PO BID PRN tab 12/14/22 [Rx] Sodium Bicarbonate Tab 650 mg PO BID tab 12/14/22 [Rx] Thiamine [Vitamin B-1] 100 mg PO DAILY tab 12/14/22 [Rx] Acetaminophen [Tylenol 8 Hour] 650 mg PO Q4H PRN 12/31/22 [History] Ammonium Lactate Lotion [Lac-Hydrin 12% Lotion] 1 applic TOPICAL BID 12/31/22 [History] Azithromycin [Zithromax] 500 mg PO DAILY #3 tab 12/31/22 [Rx] Furosemide [Lasix] 20 mg PO BID@0900,1200 12/31/22 [History] Furosemide [Lasix] 20 mg PO DAILY #0 12/31/22 [Rx] Loperamide [Imodium] 2 mg PO Q6H PRN 12/31/22 [History] Magnesium Oxide [Mag-Ox] 400 mg PO DAILY 12/31/22 [History] Metoprolol Succinate (ER) [Toprol XL] 25 mg PO DAILY #30 12/31/22 [Rx] Potassium Chloride [Klor-Con M20] 20 meq PO DAILY 12/31/22 [History] Psyllium Husk 100% [Metamucil Packet] 6 gm PO Q12H PRN 12/31/22 [History] Z-Guard 1 applic TOPICAL BID 12/31/22 [History] guaiFENesin [guaiFENesin ER] 600 mg PO BID 12/31/22 [History] predniSONE 10 mg PO DAILY #30 tab 12/31/22 [Rx] Follow up Appointment(s)/Referral(s): Ozzy Padilla MD [Primary Care Provider] - 3 Days
[2022-12-31] MEDS ORDERED: IPRATROPIUM-ALBUTEROL 3 ML NEB INHALATION SCH (14:00)
[2022-12-31 14:57] VITALS: BP 131/57; PULSE 92; TEMP 98.9
[2022-12-31] MEDS ORDERED: PANTOPRAZOLE 40 MG TABLET PO SCH (17:30)
[2022-12-31] MEDS ORDERED: TAMSULOSIN 0.4 MG CAP.ER.24H PO SCH (21:00)
[2022-12-31] MEDS ORDERED: SODIUM BICARBONATE TAB 650 MG TAB PO SCH (21:00)
[2022-12-31] MEDS ORDERED: guaiFENesin 600 MG TABLET.ER PO SCH (21:00)
[2023-01-01] MEDS ORDERED: ASPIRIN 81 MG PO SCH (09:00)
[2023-01-01] MEDS ORDERED: POTASSIUM CHLORIDE ER 20 MEQ TAB.ER PO SCH (09:00)
[2023-01-01] MEDS ORDERED: THIAMINE 100 MG TAB PO SCH (09:00)
[2023-01-01] MEDS ORDERED: FLUTICASONE 50MCG/SPRAY NASAL 16GM EA NOSTRIL SCH (09:00)
[2023-01-01] MEDS ORDERED: FUROSEMIDE 20 MG TAB PO SCH (09:00)
[2023-01-01] MEDS ORDERED: METOPROLOL SUCCINATE (ER) 25 MG TAB.ER.24H PO SCH (09:00)
[2023-01-01] MEDS ORDERED: FUROSEMIDE 40 MG TAB PO SCH (09:00)
[2023-01-01] MEDS ORDERED: MAGNESIUM OXIDE 400 MG TAB PO SCH (09:00)
== END 2022-12-31 14:49 ==
LOC: EC 04:12 → 4SSUR 07:12
PROVIDERS: ADMIT Internal Medicine; ATTEND Internal Medicine
DX: J43.9 Emphysema, unspecified (principal); J96.21 Acute and chronic respiratory failure with hypoxia; J96.22 Acute and chronic respiratory failure with hypercapnia; I13.0 Hypertensive heart and chronic kidney disease with heart failure and stage 1 through stage 4 chronic kidney disease, or unspecified chronic kidney disease; N18.30 Chronic kidney disease, stage 3 unspecified; I50.32 Chronic diastolic (congestive) heart failure; E87.1 Hypo-osmolality and hyponatremia; I49.3 Ventricular premature depolarization; E78.5 Hyperlipidemia, unspecified; K21.9 Gastro-esophageal reflux disease without esophagitis; N31.9 Neuromuscular dysfunction of bladder, unspecified; D50.9 Iron deficiency anemia, unspecified; R00.0 Tachycardia, unspecified; R79.89 Other specified abnormal findings of blood chemistry; Z20.822 Contact with and (suspected) exposure to COVID-19; I25.2 Old myocardial infarction; F32.A Depression, unspecified; F10.10 Alcohol abuse, uncomplicated; Z79.82 Long term (current) use of aspirin; Z79.51 Long term (current) use of inhaled steroids; Z79.52 Long term (current) use of systemic steroids; Z79.4 Long term (current) use of insulin; Z79.899 Other long term (current) drug therapy; Z87.891 Personal history of nicotine dependence; Z16.12 Extended spectrum beta lactamase (ESBL) resistance; Z86.79 Personal history of other diseases of the circulatory system; Z95.828 Presence of other vascular implants and grafts; Z99.81 Dependence on supplemental oxygen
CPT/HCPCS: 96372; 99285; 36415; 94640 ×2; 94760; 93005; 85379; 83880; 80053; 83605; 84484; 85025; 87636; 71046; 71275; G0378; J1650; J7512; Q9967

== ENCOUNTER 2023-05-28 15:34 | Inpatient (IN) | payer MEDICARE, OTHER ==
--- NOTE | 2023-05-28 16:30 | ED ---
General Adult HPI - General Chief complaint: Abdominal Pain Stated complaint: Pain in lower left abd Time Seen by Provider: 05/28/23 16:04 Source: patient Mode of arrival: ambulatory Limitations: no limitations - History of Present Illness Initial comments: Dictation was produced using [employer] dictation software. please excuse any grammatical, word or spelling errors. Chief Complaint: 78-year-old male presents emergency department for left lower quadrant abdominal pain History of Present Illness: Patient 78-year-old male presents to the emergency d [facility] with abdominal pain. Patient states his symptoms began after eating [place] food. His friend is at the bedside states that they got some tacos from perhaps they may be none reputable [place] restaurant. States that after that he started to have diarrhea and left lower quadrant abdominal pain. Patient states that he does feel some chills. Denies any fever. States that his diarrhea is watery. He has no history of diverticulitis. No fevers. The ROS documented in this emergency department record has been reviewed and confirmed by me. Those systems with pertinent positive or negative responses have been documented in the HPI. All other systems are other negative and/or noncontributory. - Related Data Home Medications Medication Instructions Recorded Confirmed Ipratropium-Albuterol Nebulize 3 ml INHALATION RT-Q6H@00,06,12,18 10/18/21 12/31/22 [Duoneb 0.5 mg-3 mg/3 ml Soln] Ascorbic Acid [Vitamin C] 1,000 mg PO DAILY 12/06/22 12/31/22 Aspirin EC [Ecotrin Low Dose] 81 mg PO DAILY 12/06/22 12/31/22 Fluticasone Nasal [place] [Flonase 2 spr EA NOSTRIL DAILY 12/06/22 12/31/22 Nasal [place]] Multivit-Mins/Iron/Folic/Lycop 1 tab PO DAILY 12/06/22 12/31/22 [Centrum Men's Tablet] Pantoprazole [Protonix] 40 mg PO BID 12/06/22 12/31/22 Tamsulosin [Flomax] 0.4 mg PO HS 12/06/22 12/31/22 Acetaminophen [Tylenol 8 Hour] 650 mg PO Q4H PRN 12/31/22 12/31/22 Ammonium Lactate Lotion 1 applic TOPICAL BID 12/31/22 12/31/22 [Lac-Hydrin 12% Lotion] Furosemide [Lasix] 20 mg PO BID@0900,1200 12/31/22 12/31/22 Loperamide [Imodium] 2 mg PO Q6H PRN 12/31/22 12/31/22 Magnesium Oxide [Mag-Ox] 400 mg PO DAILY 12/31/22 12/31/22 Potassium Chloride [Klor-Con M20] 20 meq PO DAILY 12/31/22 12/31/22 Psyllium Husk 100% [Metamucil 6 gm PO Q12H PRN 12/31/22 12/31/22 Packet] Z-Guard 1 applic TOPICAL BID 12/31/22 12/31/22 guaiFENesin [guaiFENesin ER] 600 mg PO BID 12/31/22 12/31/22 Previous Rx's Medication Instructions Recorded Ipratropium/Albuterol Sulfate 1 puff INHALATION RT-TID #1 09/15/18 [Combivent Respimat Inhaler] mist.inhal Acetaminophen Tab [Tylenol] 650 mg PO Q6HR PRN tab 12/14/22 Budesonide-Formot 160-4.5 Mcg 2 puff INHALATION RT-BID each 12/14/22 [Symbicort 160-4.5 Mcg Inhaler] Ipratropium-Albuterol Nebulize 3 ml INHALATION RT-Q2H PRN each 12/14/22 [Duoneb 0.5 mg-3 mg/3 ml Soln] Sennosides [Senokot] 8.6 mg PO BID PRN tab 12/14/22 Sodium Bicarbonate Tab 650 mg PO BID tab 12/14/22 Thiamine [Vitamin B-1] 100 mg PO DAILY tab 12/14/22 Azithromycin [Zithromax] 500 mg PO DAILY #3 tab 12/31/22 Furosemide [Lasix] 20 mg PO DAILY #0 12/31/22 Metoprolol Succinate (ER) [Toprol 25 mg PO DAILY #30 12/31/22 XL] predniSONE 10 mg PO DAILY #30 tab 12/31/22 Allergies Allergy/AdvReac Type Severity Reaction Status Date / Time No Known Allergies Allergy Verified 05/28/23 15:50 Review of Systems ROS Statement: Those systems with pertinent positive or pertinent negative responses have been documented in the HPI. ROS Other: All systems not noted in ROS Statement are negative. Past Medical History Past Medical History: COPD, Dialysis, GERD/Reflux, Hyperlipidemia, Hypertension Additional Past Medical History / Comment(s): Neuromuscular dysfunction of bladder, iron deficiency anemia, neurogenic bladder, pressure ulcers, dissection of thoracic aorta, no longer doing dialysis, previous ETOH abuse, [place] 2018, CHF History of Any Multi-Drug Resistant Organisms: ESBL Date of last positivie culture/infection: 02/14/19 ESBL-E.coli MDRO Source:: Urine Past Surgical History: No Surgical Hx Reported Additional Past Surgical History / Comment(s): May 2018 thoracic aorta repair at [facility] Past Anesthesia/Blood Transfusion Reactions: No Reported Reaction Past Psychological History: No Psychological Hx Reported Smoking Status: Former smoker Past Alcohol Use History: Abuse, Daily Past Drug Use History: None Reported General Exam - General Exam Comments Initial Comments: PHYSICAL EXAM: General Impression: Alert and oriented x3, not in acute distress HEENT: Normocephalic atraumatic, extra-ocular movements intact, pupils equal and reactive to light bilaterally, mucous membranes moist. Cardiovascular: Heart regular rate and rhythm Chest: Able to complete full sentences, no retractions, no tachypnea Abdomen: abdomen soft, mild tenderness to the left lower quadrant , non- distended, no organomegaly Musculoskeletal: Pulses present and equal in all extremities, no peripheral edema Motor: no focal deficits noted Neurological: CN II-XII grossly intact, no focal motor or sensory deficits noted Skin: Intact with no visualized rashes Psych: Normal affect and mood Limitations: no limitations Course Vital Signs 05/28/23 05/28/23 15:43 18:18 Temperature 98.2 F 98.9 F Pulse Rate 94 52 L Respiratory 24 20 Rate Blood Pressure 109/63 124/72 O2 Sat by Pulse 96 99 Oximetry Medical Decision Making - Medical Decision Making Was pt. sent in by a medical professional or institution (, PA, RELIABILITY MANAGER, urgent care, hospital, or fdc...) When possible be specific @ -No Did you speak to anyone other than the patient for history (EMS, parent, family, police, friend...)? What history was obtained from this source @ -No Did you review nursing and triage notes (agree or disagree)? Why? @ -I reviewed and agree with nursing and triage notes Were old charts reviewed (outside hosp., previous admission, EMS record, old EKG, old radiological studies, urgent care reports/EKG's, fdc records)? Report findings @ -No old charts were reviewed Differential Diagnosis (chest pain, altered mental status, abdominal pain women, abdominal pain men, vaginal bleeding, musculoskeletal, weakness, fever, dyspnea, syncope, headache, dizziness, GI bleed, back pain, seizure, CVA, palpatations, mental health)? @ -Differential Abdominal Pain Men: Appendicitis, cholecystitis, diverticulosis, ischemic bowel, pancreatitis, hepatitis, UTI, gastroenteritis, AAA, incarcerated hernia, bowel obstruction, constipation, inflammatory bowel, hepatitis, peptic ulcer disease, splenic infarction, perforated viscus, testicular torsion, this is not meant to be an all-inclusive list EKG interpreted by me (3pts min.). @ -None done X-rays interpreted by me (1pt min.). @ -None done CT interpreted by me (1pt min.). @ -CT of the abdomen pelvis shows no acute processes U/S interpreted by me (1pt. min.). @ -None done What testing was considered but not performed or refused? (CT, X-rays, U/S, labs)? Why? @ -None What meds were considered but not given or refused? Why? @ -None Did you discuss the management of the patient with other professionals (professionals i.e. , PA, RELIABILITY MANAGER, lab, RT, psych nurse, social media content manager, professor of kinesiology, teacher, enforcement safety officer, family caseworker)? Give summary @ -Case discussed with hospitalist for observation admission Was smoking cessation discussed for >3mins.? @ -No Was critical care preformed (if so, how long)? @ -No Were there social determinants of health that impacted care today? How? (Homelessness, low income, unemployed, alcoholism, drug addiction, transportation, low edu. Level, literacy, decrease access to med. care, intermediate, rehab)? @ -No Was there de-escalation of care discussed even if they declined (Discuss DNR or withdrawal of care, Hospice)? DNR status @ -No What co-morbidities impacted this encounter? (DM, HTN, Smoking, COPD, CAD, Cancer, CVA, ARF, Chemo, Hep., AIDS, mental health diagnosis, sleep apnea, morbid obesity)? @ -None Was patient admitted / discharged? Hospital course, mention meds given and route, prescriptions, significant lab abnormalities, going to OR and other pertinent info. @ -78-year-old male presents to the emergency department for abdominal pain, diarrhea. Vital signs upon arrival are within acceptable limits. Patient is afebrile. His abdomen is nonsurgical however given his age and complaints of constitutional symptoms CT imaging and blood work was performed. Patient has a significant leukocytosis of 27.7. He does have a history of leukocytosis though not this high. Rest of labs within acceptable limits. Viral testing is negative. CT of the abdomen pelvis shows no acute processes. Patient has mild symptoms at the bedside. Does not have significant nausea or vomiting which makes food poisoning seem less likely. Nonetheless, given his clinical presentation disposition options were discussed. Patient felt more comfortable being admitted observation. Patient be admitted with consultation to general surgery. Undiagnosed new problem with uncertain prognosis? @ -No Drug Therapy requiring intensive monitoring for toxicity (Heparin, Nitro, Insulin, Cardizem)? @ -No Were any procedures done? @ -No Diagnosis/symptom? Acute, or Chronic, or Acute on Chronic? Uncomplicated (without systemic symptoms) or Complicated (systemic symptoms)? @ -Abdominal pain, NOS Side effects of treatment? @ -No Exacerbation, Progression, or Severe Exacerbation? @ -No Poses a threat to life or bodily function? How? (Chest pain, [place], [place], pneumonia, PE, COPD, DKA, ARF, appy, cholecystitis, CVA, Diverticulitis, Homicidal, Suicidal, threat to staff... and all critical care pts) @ -yes - Lab Data Result diagrams: 05/28/23 16:53 05/28/23 16:53 Lab Results 05/28/23 05/28/23 05/28/23 Range/Units 16:53 16:53 16:53 WBC 27.7 H (3.8-10.6) k/uL RBC 3.99 L (4.30-5.90) m/uL Hgb 11.1 L (13.0-17.5) gm/dL Hct 34.7 L (39.0-53.0) % MCV 86.9 (80.0-100.0) fL MCH 27.8 (25.0-35.0) pg MCHC 32.0 (31.0-37.0) g/dL RDW 15.9 H (11.5-15.5) % Plt Count 186 (150-450) k/uL MPV 8.5 Neutrophils % 93 % Lymphocytes % 2 % Monocytes % 4 % Eosinophils % 1 % Basophils % 0 % Neutrophils # 25.8 H (1.3-7.7) k/uL Lymphocytes # 0.6 L (1.0-4.8) k/uL Monocytes # 1.0 (0-1.0) k/uL Eosinophils # 0.2 (0-0.7) k/uL Basophils # 0.0 (0-0.2) k/uL Manual Slide Review Performed Hypochromasia Slight Sodium 140 (137-145) mmol/L Potassium 5.8 H (3.5-5.1) mmol/L Chloride 107 (98-107) mmol/L Carbon Dioxide 27 (22-30) mmol/L Anion Gap 6 mmol/L BUN 42 H (9-20) mg/dL Creatinine 1.53 H (0.66-1.25) mg/dL Est GFR (CKD-EPI)AfAm 50 (>60 ml/min/1.73 sqM) Est GFR (CKD-EPI)NonAf 44 (>60 ml/min/1.73 sqM) Glucose 111 H (74-99) mg/dL Calcium 8.9 (8.4-10.2) mg/dL Total Bilirubin 0.6 (0.2-1.3) mg/dL AST 55 (17-59) U/L ALT 33 (4-49) U/L Alkaline Phosphatase 74 (38-126) U/L Total Protein 6.4 (6.3-8.2) g/dL Albumin 3.7 (3.5-5.0) g/dL Influenza Type A (PCR) Not Detected (Not Detectd) Influenza Type B (PCR) Not Detected (Not Detectd) RSV (PCR) Not Detected (Not Detectd) SARS-CoV-2 (PCR) Not Detected (Not Detectd) Disposition Clinical Impression: Abdominal pain Disposition: ADMITTED IP TO THIS HOSP Condition: Fair Referrals: Yadira Murcia MD [Primary Care Provider] - 1-2 days Decision Time: 19:29
[2023-05-28 17:19] LABS: Basophils % (A) 0 %; Eosinophils # (A) 0.2 k/uL (0-0.7); Eosinophils % (A) 1 %; HCT 34.7 % (39.0-53.0); HGB 11.1 gm/dL (13.0-17.5); Hypochromasia Slight; Lymphocytes # (A) 0.6 k/uL (1.0-4.8); Lymphocytes % (A) 2 %; MCH 27.8 pg (25.0-35.0); MCV 86.9 fL (80.0-100.0); Mean Platelet Volume 8.5; Monocytes % (A) 4 %; Neutrophils % (A) 93 %; Platelet Count 186 k/uL (150-450); RBC 3.99 m/uL (4.30-5.90); RDW 15.9 % (11.5-15.5); WBC 27.7 k/uL (3.8-10.6)
[2023-05-28 17:21] LABS: ALT 33 U/L (4-49); AST 55 U/L (17-59); African American GFR (CKD) 50 (>60 ml/min/1.73 sqM); Albumin 3.7 g/dL (3.5-5.0); Alkaline Phosphatase 74 U/L (38-126); Anion Gap 6 mmol/L; Blood Urea Nitrogen 42 mg/dL (9-20); Calcium 8.9 mg/dL (8.4-10.2); Carbon Dioxide 27 mmol/L (22-30); Chloride 107 mmol/L (98-107); Glucose 111 mg/dL (74-99); Neutrophils # (A) 25.8 k/uL (1.3-7.7); Non-African American GFR(CKD) 44 (>60 ml/min/1.73 sqM); Sodium 140 mmol/L (137-145); Total Bilirubin 0.6 mg/dL (0.2-1.3); Total Protein 6.4 g/dL (6.3-8.2)
[2023-05-28 17:25] LABS: Potassium 5.8 mmol/L (3.5-5.1)
[2023-05-28] MEDS: SODIUM CHLORIDE 0.9% 1,000 ML IV STA (18:17)
--- NOTE | 2023-05-28 18:49 | CT ---
EXAMINATION TYPE: CT abdomen pelvis w con CT DLP: 560.4 mGycm, Automated exposure control for dose reduction was used. DATE OF EXAM: 05/28/2023 6:16 PM COMPARISON: 12/09/2022 CLINICAL INDICATION:Male, 78 years old with history of llq abdominal pain; LLQ pain TECHNIQUE: Axial CT abdomen pelvis w con;Sagittal and coronal reformats were created on a separate w orkstation. Contrast used:80cc mL of Isovue 300 with IV Contrast, (none if empty) Oral contrast used: without Oral Contrast (none if empty) FINDINGS: LOWER CHEST: Airspace opacities are seen in the left lower lobe. There is centrilobular emphysema calixto nges. ABDOMEN LIVER: Unremarkable GALLBLADDER AND BILE DUCTS: Unremarkable. PANCREAS: Unremarkable. SPLEEN: Unremarkable. ADRENAL GLANDS: Unremarkable. KIDNEYS AND URETERS: No evidence of hydronephrosis or renal calculus. The ureters are unremarkable. Left renal cyst. PELVIS BLADDER: Unremarkable REPRODUCTIVE: Surgical clips in the and around the prostate gland. ABDOMEN & PELVIS STOMACH AND BOWEL: No evidence of bowel obstruction. Scattered colonic diverticula present. Redundant sigmoid colon with loop of sigmoid colon extending to the left inguinal canal. The appendix is janny l. PERITONEUM/RETROPERITONEUM: No evidence of pneumoperitoneum or free fluid. VASCULATURE: Partially visualized stent graft in the descending thoracic aorta is present. The scatte red airspace opacities in the left lower lung. There is a dissection extending from the inferior aspect of the stent graft to the aortic bifurcation . The contrast is seen extending through both the false and true lumen. The left renal artery and rig ht renal arteries arising off the true lumen as well as the celiac axis and superior mesenteric arter y. MUSCULOSKELETAL: No acute osseous abnormalities. Moderate disc degeneration changes are present throu ghout the thoracolumbar spine. LYMPH NODES: No gross evidence for lymphadenopathy. SOFT TISSUE/ABDOMINAL WALL: Fat-containing inguinal hernia on the right. Small inguinal hernia contai karl colon on the left. Small right hydrocele. IMPRESSION: 1. Redemonstration of Aortic dissection extending from the inferior aspect of the intrathoracic sten t graft to the aortic bifurcation. The major vessels of the abdominal aorta originate off the true ashwin men. 2. Left lower lung airspace opacities correlate for pneumonia. 3. Left inguinal hernia containing portions of redundant sigmoid colon. Scattered colonic diverticul a. 4. Moderate to severe emphysema changes in the lung bases.
[2023-05-28] MEDS ORDERED: NALOXONE 0.4 MG/ML 1 ML VIAL IV PRN (19:25)
[2023-05-28] MEDS: SODIUM CHLORIDE 0.9% 1,000 ML IV SCH (20:39)
[2023-05-29 08:47] LABS: Anisocytosis Slight; Basophils % (A) 0 %; Eosinophils # (A) 0.1 k/uL (0-0.7); Eosinophils % (A) 1 %; HCT 32.8 % (39.0-53.0); HGB 10.2 gm/dL (13.0-17.5); Hypochromasia Moderate; Lymphocytes # (A) 1.5 k/uL (1.0-4.8); Lymphocytes % (A) 8 %; MCH 27.6 pg (25.0-35.0); MCHC 31.1 g/dL (31.0-37.0); Mean Platelet Volume 9.2; Monocytes % (A) 5 %; Neutrophils # (A) 16.4 k/uL (1.3-7.7); Neutrophils % (A) 86 %; Platelet Count 156 k/uL (150-450); RBC 3.69 m/uL (4.30-5.90); RDW 16.1 % (11.5-15.5); WBC 19.1 k/uL (3.8-10.6)
[2023-05-29 09:19] LABS: ALT 27 U/L (4-49); AST 31 U/L (17-59); African American GFR (CKD) 55 (>60 ml/min/1.73 sqM); Alkaline Phosphatase 78 U/L (38-126); Anion Gap 3 mmol/L; Blood Urea Nitrogen 37 mg/dL (9-20); Calcium 8.3 mg/dL (8.4-10.2); Carbon Dioxide 30 mmol/L (22-30); Chloride 107 mmol/L (98-107); Glucose 85 mg/dL (74-99); Non-African American GFR(CKD) 48 (>60 ml/min/1.73 sqM); Potassium 4.4 mmol/L (3.5-5.1); Sodium 140 mmol/L (137-145); Total Bilirubin 0.4 mg/dL (0.2-1.3); Total Protein 5.5 g/dL (6.3-8.2)
[2023-05-29] MEDS: METOPROLOL SUCCINATE (ER) 25 MG TAB.ER.24H PO SCH (12:29)
--- NOTE | 2023-05-29 13:11 | P.GSCN ---
History of Present Illness Consult date: 05/29/23 History of present illness: Patient comes in with abdominal pain. Reports primarily left lower quadrant abdominal pain. Has pre-existing history of diverticulosis. Additionally, has past history of bilateral inguinal hernia repair over 6 months ago. Patient now reports increased swelling of the bilateral groins. He also describes increased wheezing with exacerbation of chronic obstructive pulmonary disease. On CT scan, finding of aneurysm. Will need cardiac risk assessment, pulmonary risk assessment, and likely repair of recurrent left inguinal hernia with symptomatic left groin pain. Overall, patient very high risk with presenting comorbidities. At this time, pending risk assessments. May have diet in the interim. Past Medical History Past Medical History: COPD, Dialysis, GERD/Reflux, Hyperlipidemia, Hypertension Additional Past Medical History / Comment(s): Neuromuscular dysfunction of bladder, iron deficiency anemia, neurogenic bladder, pressure ulcers, dissection of thoracic aorta, no longer doing dialysis, previous ETOH abuse, [place] 2018, CHF History of Any Multi-Drug Resistant Organisms: ESBL Year Discovered:: 02/14/19 ESBL-E.coli MDRO Source:: Urine Past Surgical History: No Surgical Hx Reported Additional Past Surgical History / Comment(s): May 2018 thoracic aorta repair at [facility] Past Anesthesia/Blood Transfusion Reactions: No Reported Reaction Past Psychological History: No Psychological Hx Reported Smoking Status: Former smoker Past Alcohol Use History: Abuse, Daily Additional Past Alcohol Use History / Comment(s): quit 1989, began to drink again occasionally 2011 Past Drug Use History: None Reported Additional Drug Use History / Comment(s): pt stopped smoking 03/16/2022 - Past Family History Father Family Medical History: Cancer Mother Family Medical History: No Reported History Additional Family Medical History / Comment(s): of old age Medications and Allergies Home Medications Medication Instructions Recorded Confirmed Type Aspirin EC [Ecotrin Low Dose] 81 mg PO DAILY 12/06/22 05/28/23 History Multivit-Mins/Iron/Folic/Lycop 1 tab PO DAILY 12/06/22 05/28/23 History [Centrum Men's Tablet] Tamsulosin [Flomax] 0.4 mg PO HS 12/06/22 05/28/23 History Budesonide-Formot 160-4.5 Mcg 2 puff INHALATION RT-BID each 12/14/22 05/28/23 Rx [Symbicort 160-4.5 Mcg Inhaler] Furosemide [Lasix] 30 mg PO DAILY 12/31/22 05/28/23 History Metoprolol Succinate (ER) [Toprol 25 mg PO DAILY #30 12/31/22 05/28/23 Rx XL] Potassium Chloride [Klor-Con M20] 20 meq PO BID@0900,1400 12/31/22 05/28/23 History Ascorbic Acid [Vitamin C] 500 mg PO DAILY 05/28/23 05/28/23 History Ferrous Sulfate [Feosol] 325 mg PO DAILY 05/28/23 05/28/23 History Ipratropium/Albuterol Sulfate 1 puff INHALATION RT-BID 05/28/23 05/28/23 History [Combivent Respimat Inhaler] Magnesium Oxide [Magnesium] 500 mg PO DAILY 05/28/23 05/28/23 History Mirabegron [Myrbetriq] 50 mg PO DAILY 05/28/23 05/28/23 History Omeprazole 20 mg PO DAILY 05/28/23 05/28/23 History Spironolactone [Aldactone] 25 mg PO DAILY 05/28/23 05/28/23 History lisinopriL [Zestril] 10 mg PO DAILY 05/28/23 05/28/23 History predniSONE [Deltasone] See Taper PO DAILY 05/28/23 05/28/23 History Allergies Allergy/AdvReac Type Severity Reaction Status Date / Time No Known Allergies Allergy Verified 05/28/23 15:50 Surgical - Exam Vital Signs Temp Pulse Resp BP Pulse Ox 98.2 F 94 24 109/63 96 05/28/23 15:43 05/28/23 15:43 05/28/23 15:43 05/28/23 15:43 05/28/23 15:43 Results - Labs 05/29/23 08:08 05/29/23 08:08 Abnormal Lab Results - Last 24 Hours (Table) 05/28/23 05/28/23 05/29/23 Range/Units 16:53 16:53 08:08 WBC 27.7 H 19.1 H (3.8-10.6) k/uL RBC 3.99 L 3.69 L (4.30-5.90) m/uL Hgb 11.1 L 10.2 L (13.0-17.5) gm/dL Hct 34.7 L 32.8 L (39.0-53.0) % RDW 15.9 H 16.1 H (11.5-15.5) % Neutrophils # 25.8 H 16.4 H (1.3-7.7) k/uL Lymphocytes # 0.6 L (1.0-4.8) k/uL Potassium 5.8 H (3.5-5.1) mmol/L BUN 42 H (9-20) mg/dL Creatinine 1.53 H (0.66-1.25) mg/dL Glucose 111 H (74-99) mg/dL Calcium (8.4-10.2) mg/dL Total Protein (6.3-8.2) g/dL Albumin (3.5-5.0) g/dL 05/29/23 Range/Units 08:08 WBC (3.8-10.6) k/uL RBC (4.30-5.90) m/uL Hgb (13.0-17.5) gm/dL Hct (39.0-53.0) % RDW (11.5-15.5) % Neutrophils # (1.3-7.7) k/uL Lymphocytes # (1.0-4.8) k/uL Potassium (3.5-5.1) mmol/L BUN 37 H (9-20) mg/dL Creatinine 1.43 H (0.66-1.25) mg/dL Glucose (74-99) mg/dL Calcium 8.3 L (8.4-10.2) mg/dL Total Protein 5.5 L (6.3-8.2) g/dL Albumin 3.0 L (3.5-5.0) g/dL Diabetes panel 05/28/23 05/29/23 Range/Units 16:53 08:08 Sodium 140 140 (137-145) mmol/L Potassium 5.8 H 4.4 (3.5-5.1) mmol/L Chloride 107 107 (98-107) mmol/L Carbon Dioxide 27 30 (22-30) mmol/L BUN 42 H 37 H (9-20) mg/dL Creatinine 1.53 H 1.43 H (0.66-1.25) mg/dL Glucose 111 H 85 (74-99) mg/dL Calcium 8.9 8.3 L (8.4-10.2) mg/dL AST 55 31 (17-59) U/L ALT 33 27 (4-49) U/L Alkaline Phosphatase 74 78 (38-126) U/L Total Protein 6.4 5.5 L (6.3-8.2) g/dL Albumin 3.7 3.0 L (3.5-5.0) g/dL Calcium panel 05/28/23 05/29/23 Range/Units 16:53 08:08 Calcium 8.9 8.3 L (8.4-10.2) mg/dL Albumin 3.7 3.0 L (3.5-5.0) g/dL Pituitary panel 05/28/23 05/29/23 Range/Units 16:53 08:08 Sodium 140 140 (137-145) mmol/L Potassium 5.8 H 4.4 (3.5-5.1) mmol/L Chloride 107 107 (98-107) mmol/L Carbon Dioxide 27 30 (22-30) mmol/L BUN 42 H 37 H (9-20) mg/dL Creatinine 1.53 H 1.43 H (0.66-1.25) mg/dL Glucose 111 H 85 (74-99) mg/dL Calcium 8.9 8.3 L (8.4-10.2) mg/dL Adrenal panel 05/28/23 05/29/23 Range/Units 16:53 08:08 Sodium 140 140 (137-145) mmol/L Potassium 5.8 H 4.4 (3.5-5.1) mmol/L Chloride 107 107 (98-107) mmol/L Carbon Dioxide 27 30 (22-30) mmol/L BUN 42 H 37 H (9-20) mg/dL Creatinine 1.53 H 1.43 H (0.66-1.25) mg/dL Glucose 111 H 85 (74-99) mg/dL Calcium 8.9 8.3 L (8.4-10.2) mg/dL Total Bilirubin 0.6 0.4 (0.2-1.3) mg/dL AST 55 31 (17-59) U/L ALT 33 27 (4-49) U/L Alkaline Phosphatase 74 78 (38-126) U/L Total Protein 6.4 5.5 L (6.3-8.2) g/dL Albumin 3.7 3.0 L (3.5-5.0) g/dL
--- NOTE | 2023-05-29 13:17 | P.HPIM ---
History of Present Illness H&P Date: 05/29/23 History of present illness; patient 78-year-old male patient with a history of chronic obstructive pulmonary disease, former smoker, daily alcohol use, gastroesophageal reflux disease, hypertension, hyperlipidemia, neuromuscular dysfunction and the bladder,, previous thoracic aortic aneurysm repair for aortic valve repair, chronic aortic dissection who presented to the ER for abdominal pain. Stated he was all right yesterday when after eating [place] food he started having abdominal pain. Abdominal pain was initially generalized but later on progressed to involve the left lower quadrant. Patient also having profuse diarrhea, stools were watery in consistency, no blood in it. There was complaint of nausea and vomiting. Denied any fever but was complaining of chills. There was no complaint of orthopnea or PND. There was no cough no chest pain or shortness of breath. Patient thinks all this is secondary to him eating tacos and does not think they are most hygienic. Because abdominal pain, patient came to the ER Initial lab work done in the ER showed WBC 27.7, hemoglobin 11.1, platelet count 186, sodium 140, potassium 5.8 BUN 42, creatinine 1.53, Influenza A not detected Influenza B not detected RSV not detected COVID-[address] abdominal pelvis done showed redemonstration of aortic dissection extending from the inferior aspect of the intrathoracic stent graft to the aortic bifurcation. Left lower lung opacities correlate for pneumonia. Left inguinal hernia containing portion of redundant sigmoid colon. Moderate to severe emphysema Patient admitted to internal medicine service REVIEW OF SYSTEMS: CONSTITUTIONAL: No fever, no malaise, no fatigue. HEENT: No recent visual problems or hearing problems. Denied any sore throat. CARDIOVASCULAR: No chest pain, orthopnea, PND, no palpitations, no syncope. PULMONARY: No shortness of breath, no cough, no hemoptysis. GASTROINTESTINAL: As mentioned above NEUROLOGICAL: No headaches, no weakness, no numbness. HEMATOLOGICAL: Denies any bleeding or petechiae. GENITOURINARY: Denies any burning micturition, frequency, or urgency. MUSCULOSKELETAL/RHEUMATOLOGICAL: Denies any joint pain, swelling, or any muscle pain. ENDOCRINE: Denies any polyuria or polydipsia. The rest of the 14-point review of systems is negative. PHYSICAL EXAMINATION: GENERAL: The patient is alert and oriented x3, not in any acute distress. Well developed, well nourished. HEENT: Pupils are round and equally reacting to light. EOMI. No scleral icterus. No conjunctival pallor. Normocephalic, atraumatic. No pharyngeal erythema. No thyromegaly. CARDIOVASCULAR: S1 and S2 present. No murmurs, rubs, or gallops. PULMONARY: Chest is clear to auscultation, no wheezing or crackles. ABDOMEN: Soft, nontender, nondistended, normoactive bowel sounds. No palpable organomegaly. MUSCULOSKELETAL: No joint swelling or deformity. EXTREMITIES: No cyanosis, clubbing, or pedal edema. NEUROLOGICAL: Gross neurological examination did not reveal any focal deficits. SKIN: No rashes. Assessment and plan Abdominal pain Hyperkalemia Acute kidney injury Recurrent left inguinal hernia History of bilateral inguinal hernia , status post laparoscopic repair History of aortic dissection, stable Leukocytosis, possibly reactive Chronic obstructive pulmonary disease Congestive heart failure chronic diastolic dysfunction grade 1 -Hypertension -Hyperlipidemia -Depression History of EtOH History of greater than 50 years smoking, quit March 2022 History of previous heavy alcohol use History of neurogenic bladder History of thoracic aortic aneurysm/aortic valve repair at [facility] May 2018 Monitor vital signs Monitor CBC Monitor CMP Continue telemetry monitoring Continue IV fluids Continue antiemetics continue pain management Consult general surgery Consult vascular surgery Labs and medication were reviewed.. Continue same treatment. Continue with symptomatic treatment. Resume home medication. Monitor labs and vitals. DVT and GI prophylaxis. Further recommendations as per clinical course of the pa claudia Dictation was produced using [employer] dictation software. please excuse any grammatical, word or spelling errors. Past Medical History Past Medical History: COPD, Dialysis, GERD/Reflux, Hyperlipidemia, Hypertension Additional Past Medical History / Comment(s): Neuromuscular dysfunction of bladder, iron deficiency anemia, neurogenic bladder, pressure ulcers, dissection of thoracic aorta, no longer doing dialysis, previous ETOH abuse, 2018, CHF History of Any Multi-Drug Resistant Organisms: ESBL Date of last positivie culture/infection: 02/14/19 ESBL-E.coli MDRO Source:: Urine Past Surgical History: No Surgical Hx Reported Additional Past Surgical History / Comment(s): May 2018 thoracic aorta repair at [facility] Past Anesthesia/Blood Transfusion Reactions: No Reported Reaction Past Psychological History: No Psychological Hx Reported Smoking Status: Former smoker Past Alcohol Use History: Abuse, Daily Additional Past Alcohol Use History / Comment(s): quit 1989, began to drink again occasionally 2011 Past Drug Use History: None Reported Additional Drug Use History / Comment(s): pt stopped smoking 03/16/2022 - Past Family History Father Family Medical History: Cancer Mother Family Medical History: No Reported History Additional Family Medical History / Comment(s): of old age Medications and Allergies Home Medications Medication Instructions Recorded Confirmed Type Aspirin EC [Ecotrin Low Dose] 81 mg PO DAILY 12/06/22 05/28/23 History Multivit-Mins/Iron/Folic/Lycop 1 tab PO DAILY 12/06/22 05/28/23 History [Centrum Men's Tablet] Tamsulosin [Flomax] 0.4 mg PO HS 12/06/22 05/28/23 History Budesonide-Formot 160-4.5 Mcg 2 puff INHALATION RT-BID each 12/14/22 05/28/23 Rx [Symbicort 160-4.5 Mcg Inhaler] Furosemide [Lasix] 30 mg PO DAILY 12/31/22 05/28/23 History Metoprolol Succinate (ER) [Toprol 25 mg PO DAILY #30 12/31/22 05/28/23 Rx XL] Potassium Chloride [Klor-Con M20] 20 meq PO BID@0900,1400 12/31/22 05/28/23 History Ascorbic Acid [Vitamin C] 500 mg PO DAILY 05/28/23 05/28/23 History Ferrous Sulfate [Feosol] 325 mg PO DAILY 05/28/23 05/28/23 History Ipratropium/Albuterol Sulfate 1 puff INHALATION RT-BID 05/28/23 05/28/23 History [Combivent Respimat Inhaler] Magnesium Oxide [Magnesium] 500 mg PO DAILY 05/28/23 05/28/23 History Mirabegron [Myrbetriq] 50 mg PO DAILY 05/28/23 05/28/23 History Omeprazole 20 mg PO DAILY 05/28/23 05/28/23 History Spironolactone [Aldactone] 25 mg PO DAILY 05/28/23 05/28/23 History lisinopriL [Zestril] 10 mg PO DAILY 05/28/23 05/28/23 History predniSONE [Deltasone] See Taper PO DAILY 05/28/23 05/28/23 History Allergies Allergy/AdvReac Type Severity Reaction Status Date / Time No Known Allergies Allergy Verified 05/28/23 15:50 Physical Exam Vitals: Vital Signs Temp Pulse Pulse Resp BP BP BP 05/29/23 08:45 05/29/23 03:15 97.9 F 78 20 130/63 05/28/23 23:07 97.8 F 78 18 115/65 05/28/23 21:15 98.5 F 73 24 136/72 05/28/23 18:18 98.9 F 52 L 20 124/72 05/28/23 15:43 98.2 F 94 24 109/63 Pulse Ox 05/29/23 08:45 99 05/29/23 03:15 98 05/28/23 23:07 97 05/28/23 21:15 100 05/28/23 18:18 99 05/28/23 15:43 96 Intake and Output 05/28/23 05/29/23 05/29/23 22:59 06:59 14:59 Other: # Voids 1 # Bowel Movements 1 Weight 52.617 kg Results CBC & Chem 7: 05/29/23 08:08 05/29/23 08:08 Labs: Abnormal Lab Results - Last 24 Hours (Table) 05/28/23 05/28/23 05/29/23 Range/Units 16:53 16:53 08:08 WBC 27.7 H 19.1 H (3.8-10.6) k/uL RBC 3.99 L 3.69 L (4.30-5.90) m/uL Hgb 11.1 L 10.2 L (13.0-17.5) gm/dL Hct 34.7 L 32.8 L (39.0-53.0) % RDW 15.9 H 16.1 H (11.5-15.5) % Neutrophils # 25.8 H 16.4 H (1.3-7.7) k/uL Lymphocytes # 0.6 L (1.0-4.8) k/uL Potassium 5.8 H (3.5-5.1) mmol/L BUN 42 H (9-20) mg/dL Creatinine 1.53 H (0.66-1.25) mg/dL Glucose 111 H (74-99) mg/dL Thrombosis Risk Factor Assmnt - Choose All That Apply Each Factor Represents 1 point: Abnormal pulmonary function (COPD), Medical pt on bed rest Each Risk Factor Represents 3 Points: Age 75 years or older Other congenital or acquired thrombophilia - If yes, enter type in comment: No Thrombosis Risk Factor Assessment Total Risk Factor Score: 5 Thrombosis Risk Factor Assessment Level: High Risk
[2023-05-29] MEDS: FUROSEMIDE 10 MG TAB PO SCH (17:14)
[2023-05-29] MEDS: methylPREDNISolone SOD SUCCI 40 MG/ML 1 ML VIAL IV SCH (17:15)
[2023-05-29] MEDS: IPRATROPIUM-ALBUTEROL 3 ML NEB INHALATION SCH (19:51)
[2023-05-29] MEDS: SYMBICORT 160-4.5 MCG INHALER INHALATION SCH (19:51)
[2023-05-29] MEDS: TAMSULOSIN 0.4 MG CAP.ER.24H PO SCH (20:17)
--- NOTE | 2023-05-30 03:12 | P.CNPUL ---
History of Present Illness Consult date: 05/30/23 Requesting physician: Delma Roberts Reason for consult: other (Pulmonary surgical clearance) Chief complaint: Diarrhea and left-sided pelvic pain History of present illness: I am seeing this patient in consultation today 05/30/2023 after he was admitted with diarrhea and left lower abdominal pain. Patient is a 78-year-old male with past medical history significant for recent bilateral incarcerated inguinal hernia repairs, severe oxygen dependent COPD, former tobacco smoker, GERD, hyper tension, hyperlipidemia, chronic kidney disease, and prior thoracic aneurysm repair. Patient reportedly ate some questionable tacos over the weekend and developed severe diarrhea. After this, he started to have left lower abdominal pain, which is actually in the pelvic region. This pain is worse with straining or coughing. Denies any bloody bowel movements. Denies any nausea or vomiting or retching. Patient recently had bilateral incarcerated inguinal hernia repairs with Dr. Roberts. On arrival to the emergency room on 05/28/2023 the patient had an abdominal CT with contrast which showed left inguinal hernia containing portions of redundant sigmoid colon, scattered colonic diverticula, and a possible left lower lung opacity concerning for pneumonia versus atelectasis. There is redemonstration of aortic dissection extending to the inferior aspect of the intra thoracic stent graft to the aortic bifurcation. Patient is being evaluated by general surgery. We were consulted for pulmonary assessment and management of the patient's COPD. Patient states that his COPD has been fairly well-controlled. He uses a a Combivent inhaler at home. Unclear if he takes any other inhalers. He is currently lying in bed, on 1.5 L nasal cannula, in no acute distress. He does admit to exertional shortness of breath and nonproductive cough since Tuesday. Denies any infectious symptoms such as fever, chills, sputum production, chest pain. Denies sick contacts. Negative for influenza, RSV, COVID on arrival. CBC from yesterday: WBC count 19.1, hemoglobin 10.2, hematocrit 32.8, platelets 156. BMP from yesterday: Sodium 140, potassium 4.4, chloride 107, serum bicarb 30, BUN 37, creatinine 1.43, glucose 85. Normal saline infusing at 50 MLS per hour. Vital signs are stable. Review of Systems REVIEW OF SYSTEMS: CONSTITUTIONAL: Denies any recent significant weight loss or weight gain. EYES: Denies change in vision. EARS, NOSE, MOUTH, THROAT: Denies headaches, denies sore throat. CARDIOVASCULAR: Denies chest pain, palpitations or syncopal episodes. RESPIRATORY: See HPI GASTROINTESTINAL: See HPI. GENITOURINARY: Denies hematuria, denies infections. MUSKULOSKELETAL: Denies pain, denies swelling. INTEGUMENTARY: Denies rash, denies eczema. NEUROLOGICAL: Denies recent memory loss, no recent seizure activity. PSYCHIATRIC: Denies anxiety, denies depression. HEMATOLOGIC/LYMPHATIC: Denies anemia, denies enlarged lymph node Past Medical History Past Medical History: COPD, Dialysis, GERD/Reflux, Hyperlipidemia, Hypertension Additional Past Medical History / Comment(s): Neuromuscular dysfunction of bladder, iron deficiency anemia, neurogenic bladder, pressure ulcers, dissection of thoracic aorta, no longer doing dialysis, previous ETOH abuse, [place] 2019, CHF History of Any Multi-Drug Resistant Organisms: ESBL Date of last positivie culture/infection: 02/14/19 ESBL-E.coli MDRO Source:: Urine Past Surgical History: No Surgical Hx Reported Additional Past Surgical History / Comment(s): May 2018 thoracic aorta repair at [facility] Past Anesthesia/Blood Transfusion Reactions: No Reported Reaction Past Psychological History: No Psychological Hx Reported Smoking Status: Former smoker Past Alcohol Use History: Abuse, Daily Additional Past Alcohol Use History / Comment(s): quit 1989, began to drink again occasionally 2011 Past Drug Use History: None Reported Additional Drug Use History / Comment(s): pt stopped smoking 03/16/2022 - Past Family History Father Family Medical History: Cancer Mother Family Medical History: No Reported History Additional Family Medical History / Comment(s): of old age Medications and Allergies Home Medications Medication Instructions Recorded Confirmed Type Aspirin EC [Ecotrin Low Dose] 81 mg PO DAILY 12/06/22 05/28/23 History Multivit-Mins/Iron/Folic/Lycop 1 tab PO DAILY 12/06/22 05/28/23 History [Centrum Men's Tablet] Tamsulosin [Flomax] 0.4 mg PO HS 12/06/22 05/28/23 History Budesonide-Formot 160-4.5 Mcg 2 puff INHALATION RT-BID each 12/14/22 05/28/23 Rx [Symbicort 160-4.5 Mcg Inhaler] Furosemide [Lasix] 30 mg PO DAILY 12/31/22 05/28/23 History Metoprolol Succinate (ER) [Toprol 25 mg PO DAILY #30 12/31/22 05/28/23 Rx XL] Potassium Chloride [Klor-Con M20] 20 meq PO BID@0900,1400 12/31/22 05/28/23 History Ascorbic Acid [Vitamin C] 500 mg PO DAILY 05/28/23 05/28/23 History Ferrous Sulfate [Feosol] 325 mg PO DAILY 05/28/23 05/28/23 History Ipratropium/Albuterol Sulfate 1 puff INHALATION RT-BID 05/28/23 05/28/23 History [Combivent Respimat Inhaler] Magnesium Oxide [Magnesium] 500 mg PO DAILY 05/28/23 05/28/23 History Mirabegron [Myrbetriq] 50 mg PO DAILY 05/28/23 05/28/23 History Omeprazole 20 mg PO DAILY 05/28/23 05/28/23 History Spironolactone [Aldactone] 25 mg PO DAILY 05/28/23 05/28/23 History lisinopriL [Zestril] 10 mg PO DAILY 05/28/23 05/28/23 History predniSONE [Deltasone] See Taper PO DAILY 05/28/23 05/28/23 History Allergies Allergy/AdvReac Type Severity Reaction Status Date / Time No Known Allergies Allergy Verified 05/28/23 15:50 Physical Exam Vitals: Vital Signs Temp Pulse Pulse Resp BP Pulse Ox 05/29/23 20:02 78 05/29/23 20:00 97.9 F 63 18 120/70 93 L 05/29/23 19:51 75 05/29/23 15:00 75 20 146/74 93 L 05/29/23 14:00 20 05/29/23 08:45 99 05/29/23 08:00 78 20 05/29/23 07:00 97.2 F L 78 18 141/65 97 05/29/23 03:15 97.9 F 78 20 130/63 98 Intake and Output 05/29/23 05/29/23 05/30/23 14:59 22:59 06:59 Intake Total 360 190 Balance 360 190 Intake: IV 10 Invasive Line 1 10 Oral 360 180 Other: Voiding Method Toilet Diaper # Voids 2 1 3 # Bowel Movements 1 GENERAL EXAM: Alert, 78-year-old white male, comfortable in no apparent di stress. Walker at bedside. HEAD: Normocephalic and atraumatic EYES: Normal reaction of pupils, equal size. NOSE: Clear with pink turbinates. THROAT: No erythema or exudates. NECK: No masses, no JVD. CHEST: No chest wall deformity. LUNGS: Equal air entry with end expiratory wheezes with forced expiratory maneuver. No crackles, rhonchi, or focal dullness. On 1.5 L nasal cannula. No conversational dyspnea or accessory muscle use while at rest.. CVS: S1 and S2 normal with no audible murmur, regular rhythm. No extra heart sounds ABDOMEN: No hepatosplenomegaly, active bowel sounds, no guarding or rigidity. SPINE: No scoliosis or deformity SKIN: No rashes CENTRAL NERVOUS SYSTEM: No focal deficits, tone is normal in all 4 extremities. EXTREMITIES: There is no peripheral edema, clubbing, or cyanosis. Peripheral pulses are intact. Results - Laboratory Findings CBC and BMP: 05/29/23 08:08 05/29/23 08:08 Abnormal lab findings: Abnormal Labs 05/28/23 05/28/23 05/29/23 16:53 16:53 08:08 WBC 27.7 H 19.1 H RBC 3.99 L 3.69 L Hgb 11.1 L 10.2 L Hct 34.7 L 32.8 L RDW 15.9 H 16.1 H Neutrophils # 25.8 H 16.4 H Lymphocytes # 0.6 L Potassium 5.8 H BUN 42 H Creatinine 1.53 H Glucose 111 H Calcium Total Protein Albumin 05/29/23 08:08 WBC RBC Hgb Hct RDW Neutrophils # Lymphocytes # Potassium BUN 37 H Creatinine 1.43 H Glucose Calcium 8.3 L Total Protein 5.5 L Albumin 3.0 L Assessment and Plan Assessment: Incarcerated left inguinal hernia Possible acute gastroenteritis History of bilateral incarcerated inguinal hernia repairs 12/09/2022 Acute exacerbation of COPD Chronic obstructive pulmonary disease, with a FEV1 of 20% of predicted History of greater than 50 years smoking, quit March 2022 Chronic kidney disease stage III History of neurogenic bladder History of thoracic aortic aneurysm/aortic valve repair at [facility] May 2018 Hypertension Hyperlipidemia History of depression Plan: Patient's medications and labs reviewed Obtain chest x-ray Patient negative for influenza, RSV, COVID Previous spirometry results were reviewed, which places the patient had a moderate to high risk for surgery. Dr. Padilla will follow up for surgical clearance. Optimize patient's lung function with a combination of DuoNebs [id number], Symbicort inhaler, and IV Solu-Medrol Encourage incentive spirometer We will continue to follow, and additional recommendations are forthcoming. I have personally seen and examined the patient, performed the documentation and the assessment and plan as written. Number of minutes spent on the visit:20 Time with Patient: Greater than 30
[2023-05-30] MEDS: PANTOPRAZOLE 40 MG TABLET PO SCH (06:43)
--- NOTE | 2023-05-30 08:00 | XR ---
EXAMINATION TYPE: XR chest 1V portable DATE OF EXAM: 05/30/2023 Comparison: 12/31/2022 Clinical History: 78-year-old male shortness of breath, cough Findings: Median sternotomy wires. Endovascular stent graft at the arch and descending thoracic aorta. Heart sonia rderline in size. Bullous emphysema. Bilateral interstitial prominence in the lower lungs, increased from prior. No pleural effusion. Impression: 1. COPD. 2. Mild interstitial density in the lower lungs could reflect bronchitis or subtle interstitial infil trates of atypical pneumonia. Early pulmonary vascular congestion is also possible.
[2023-05-30] MEDS: IPRATROPIUM-ALBUTEROL 3 ML NEB INHALATION SCH (09:11)
[2023-05-30 09:19] LABS: ALT 31 U/L (4-49); AST 29 U/L (17-59); African American GFR (CKD) 48 (>60 ml/min/1.73 sqM); Albumin 3.5 g/dL (3.5-5.0); Alkaline Phosphatase 91 U/L (38-126); Anion Gap 8 mmol/L; Blood Urea Nitrogen 44 mg/dL (9-20); Calcium 8.8 mg/dL (8.4-10.2); Carbon Dioxide 27 mmol/L (22-30); Chloride 103 mmol/L (98-107); Glucose 165 mg/dL (74-99); Non-African American GFR(CKD) 41 (>60 ml/min/1.73 sqM); Potassium 4.6 mmol/L (3.5-5.1); Sodium 138 mmol/L (137-145); Total Bilirubin 0.4 mg/dL (0.2-1.3); Total Protein 6.2 g/dL (6.3-8.2)
[2023-05-30 09:21] LABS: Basophils % (A) 0 %; Eosinophils % (A) 0 %; HCT 36.2 % (39.0-53.0); HGB 11.3 gm/dL (13.0-17.5); Hypochromasia Slight; Lymphocytes # (A) 0.8 k/uL (1.0-4.8); Lymphocytes % (A) 5 %; MCH 27.4 pg (25.0-35.0); MCHC 31.1 g/dL (31.0-37.0); Mean Platelet Volume 9.2; Monocytes # (A) 0.5 k/uL (0-1.0); Monocytes % (A) 3 %; Neutrophils # (A) 16.1 k/uL (1.3-7.7); Neutrophils % (A) 92 %; Platelet Count 176 k/uL (150-450); RBC 4.12 m/uL (4.30-5.90); RDW 15.9 % (11.5-15.5); WBC 17.4 k/uL (3.8-10.6)
[2023-05-30] MEDS: ASCORBIC ACID 500 MG TAB PO SCH (09:59)
[2023-05-30] MEDS: lisinopriL 10 MG TAB PO SCH (09:59)
[2023-05-30] MEDS: FERROUS SULFATE 325 MG TAB PO SCH (09:59)
[2023-05-30] MEDS: ASPIRIN 81 MG PO SCH (09:59)
--- NOTE | 2023-05-30 11:00 | P.GSCN ---
History of Present Illness Consult date: 05/30/23 Reason for Consult: Abdominal pain, chronic aortic dissection Requesting physician: Abhinav Bruno History of present illness: Is a pleasant 78-year-old male who presented to the emergency department 2 days ago with complaints of abdominal pain. Patient states that his symptoms had began after eating some [place] food from him possible nonreputable [place] restaurant. Following eating his tach goes he started to have diarrhea and left lower quadrant abdominal pain. Denied any fevers, nausea or vomiting. He has a past medical history including chronic aortic dissection with history of stent graft which she states was placed in 2019. He follows with a vascular surgeon at the [facility]. He had a CT of the abdomen pelvis with contrast on admission that reported redemonstration of aortic dissection extending from the inferior aspect of the intrathoracic stent graft to the aortic bifurcation. Major vessels of abdominal aorta originate off the true lumen. Vascular surgery was consulted for chronic aortic dissection. Patient states symptoms have completely resolved, he is sitting up eating his breakfast. He denies any abdominal pain, back pain, chest pain, no nausea, vomiting or diarrhea. He has chronic shortness of breath, on O2. He has been afebrile. Review of Systems A 14 point review systems was completed all pertinent positives and negatives as stated in the HPI. Past Medical History Past Medical History: COPD, Dialysis, GERD/Reflux, Hyperlipidemia, Hypertension Additional Past Medical History / Comment(s): Neuromuscular dysfunction of bladder, iron deficiency anemia, neurogenic bladder, pressure ulcers, dissection of thoracic aorta, no longer doing dialysis, previous ETOH abuse, [place] 2019, CHF History of Any Multi-Drug Resistant Organisms: ESBL Year Discovered:: 02/14/19 ESBL-E.coli MDRO Source:: Urine Past Surgical History: No Surgical Hx Reported Additional Past Surgical History / Comment(s): May 2018 thoracic aorta repair at [facility] Past Anesthesia/Blood Transfusion Reactions: No Reported Reaction Past Psychological History: No Psychological Hx Reported Smoking Status: Former smoker Past Alcohol Use History: Abuse, Daily Additional Past Alcohol Use History / Comment(s): quit 1989, began to drink again occasionally 2011 Past Drug Use History: None Reported Additional Drug Use History / Comment(s): pt stopped smoking 03/16/2022 - Past Family History Father Family Medical History: Cancer Mother Family Medical History: No Reported History Additional Family Medical History / Comment(s): of old age Medications and Allergies Home Medications Medication Instructions Recorded Confirmed Type Aspirin EC [Ecotrin Low Dose] 81 mg PO DAILY 12/06/22 05/28/23 History Multivit-Mins/Iron/Folic/Lycop 1 tab PO DAILY 12/06/22 05/28/23 History [Centrum Men's Tablet] Tamsulosin [Flomax] 0.4 mg PO HS 12/06/22 05/28/23 History Budesonide-Formot 160-4.5 Mcg 2 puff INHALATION RT-BID each 12/14/22 05/28/23 Rx [Symbicort 160-4.5 Mcg Inhaler] Furosemide [Lasix] 30 mg PO DAILY 12/31/22 05/28/23 History Metoprolol Succinate (ER) [Toprol 25 mg PO DAILY #30 12/31/22 05/28/23 Rx XL] Potassium Chloride [Klor-Con M20] 20 meq PO BID@0900,1400 12/31/22 05/28/23 History Ascorbic Acid [Vitamin C] 500 mg PO DAILY 05/28/23 05/28/23 History Ferrous Sulfate [Feosol] 325 mg PO DAILY 05/28/23 05/28/23 History Ipratropium/Albuterol Sulfate 1 puff INHALATION RT-BID 05/28/23 05/28/23 History [Combivent Respimat Inhaler] Magnesium Oxide [Magnesium] 500 mg PO DAILY 05/28/23 05/28/23 History Mirabegron [Myrbetriq] 50 mg PO DAILY 05/28/23 05/28/23 History Omeprazole 20 mg PO DAILY 05/28/23 05/28/23 History Spironolactone [Aldactone] 25 mg PO DAILY 05/28/23 05/28/23 History lisinopriL [Zestril] 10 mg PO DAILY 05/28/23 05/28/23 History predniSONE [Deltasone] See Taper PO DAILY 05/28/23 05/28/23 History Allergies Allergy/AdvReac Type Severity Reaction Status Date / Time No Known Allergies Allergy Verified 05/28/23 15:50 Surgical - Exam Vital Signs Temp Pulse Resp BP Pulse Ox 98.2 F 94 24 109/63 96 05/28/23 15:43 05/28/23 15:43 05/28/23 15:43 05/28/23 15:43 05/28/23 15:43 General appearance: The patient is alert, oriented, appears in no acute distress . HET: Head is normocephalic and atraumatic. Pupils are equal and reactive. Neck: Supple. Heart: Regular. Lungs: Equal expansion, normal respiratory effort. Abdomen: Soft, nontender, nondistended. Extremities: Normal skin color and turgor. Bilateral lower extremities without any swelling, warm to the touch. Nonpalpable DP and PT pulse on the left, palpable PT pulse on the right. Neurological: No focal deficits. Results - Labs 05/30/23 08:07 05/30/23 08:07 Abnormal Lab Results - Last 24 Hours (Table) 05/29/23 05/29/23 Range/Units 08:08 08:08 WBC 19.1 H (3.8-10.6) k/uL RBC 3.69 L (4.30-5.90) m/uL Hgb 10.2 L (13.0-17.5) gm/dL Hct 32.8 L (39.0-53.0) % RDW 16.1 H (11.5-15.5) % Neutrophils # 16.4 H (1.3-7.7) k/uL BUN 37 H (9-20) mg/dL Creatinine 1.43 H (0.66-1.25) mg/dL Calcium 8.3 L (8.4-10.2) mg/dL Total Protein 5.5 L (6.3-8.2) g/dL Albumin 3.0 L (3.5-5.0) g/dL Diabetes panel 05/29/23 Range/Units 08:08 Sodium 140 (137-145) mmol/L Potassium 4.4 (3.5-5.1) mmol/L Chloride 107 (98-107) mmol/L Carbon Dioxide 30 (22-30) mmol/L BUN 37 H (9-20) mg/dL Creatinine 1.43 H (0.66-1.25) mg/dL Glucose 85 (74-99) mg/dL Calcium 8.3 L (8.4-10.2) mg/dL AST 31 (17-59) U/L ALT 27 (4-49) U/L Alkaline Phosphatase 78 (38-126) U/L Total Protein 5.5 L (6.3-8.2) g/dL Albumin 3.0 L (3.5-5.0) g/dL Calcium panel 05/29/23 Range/Units 08:08 Calcium 8.3 L (8.4-10.2) mg/dL Albumin 3.0 L (3.5-5.0) g/dL Pituitary panel 05/29/23 Range/Units 08:08 Sodium 140 (137-145) mmol/L Potassium 4.4 (3.5-5.1) mmol/L Chloride 107 (98-107) mmol/L Carbon Dioxide 30 (22-30) mmol/L BUN 37 H (9-20) mg/dL Creatinine 1.43 H (0.66-1.25) mg/dL Glucose 85 (74-99) mg/dL Calcium 8.3 L (8.4-10.2) mg/dL Adrenal panel 05/29/23 Range/Units 08:08 Sodium 140 (137-145) mmol/L Potassium 4.4 (3.5-5.1) mmol/L Chloride 107 (98-107) mmol/L Carbon Dioxide 30 (22-30) mmol/L BUN 37 H (9-20) mg/dL Creatinine 1.43 H (0.66-1.25) mg/dL Glucose 85 (74-99) mg/dL Calcium 8.3 L (8.4-10.2) mg/dL Total Bilirubin 0.4 (0.2-1.3) mg/dL AST 31 (17-59) U/L ALT 27 (4-49) U/L Alkaline Phosphatase 78 (38-126) U/L Total Protein 5.5 L (6.3-8.2) g/dL Albumin 3.0 L (3.5-5.0) g/dL - Imaging Comments: CT abdomen pelvis with contrast reports redemonstration of aortic dissection extending from inferior aspect of intrathoracic stent graft to the aortic bifurcation. The major vessels of abdominal aorta originate off the true lumen. Left lower lung airspace opacities correlate for pneumonia. Left inguinal hernia containing portions of redundant sigmoid colon. Scattered colonic diverticula. Moderate to severe emphysema changes in the lung bases. CT scan - abdomen: report reviewed (Image independently reviewed by Dr. Guzman who agrees all chronic dissection. No acute findings.), image reviewed Assessment and Plan Assessment: 1. Chronic aortic dissection 2. Abdominal pain and diarrhea, resolved 3. History of aortic aneurysm status post stent graft done 2019 at [facility] 4. COPD 5. Inguinal hernia Plan: Abdominal CAT scan reviewed independently by Dr. Guzman, no evidence of any acute findings. Aortic dissection chronic. There is no indication for any vascular surgical intervention. Patient is cleared by vascular surgery for discharge when otherwise medically stable. Patient to follow-up with his vascular surgeon as scheduled. Thank you for this consultation, we will sign off at this time. The impression and plan of care has been dictated as directed. I performed a history and examination of this patient, discussed the same with the dictator. I agree with the dictator's note ,documented as a scribe. Any additional findings or plans will be noted.
--- NOTE | 2023-05-30 11:04 | P.CRDCN ---
History of Present Illness Consult date: 05/30/23 History of present illness: History of present illness: This is a 78-year-old male patient of Dr. Josi Schofield with past medical history of chronic hypoxic respiratory failure on home O2 at 1 L nasal cannula, aortic dissection status postrepair at [facility] in 2019, thrombosis of subclavian artery, hypertension, dyslipidemia, remote history of tobacco use and dependence, COPD, benign prostatic hypertrophy, chronic kidney disease stage III. We have been asked to evaluate the patient for cardiac risk assessment. Patient presented to the hospital due to abdominal pain was diagnosed by general surgery to have a left inguinal hernia that needs to be redone. Patient is having significant difficulty in breathing secondary to COPD exacerbation. Stat nebulizer treatment ordered. Chest x-ray performed this morning reveals COPD. Mild interstitial density in the lower lungs could reflect bronchitis or subtle interstitial infiltrates or atypical pneumonia. Early pulmonary vascular congestion is also possible. CT of the abdomen pelvis revealed aortic dissection extending from the inferior aspect of the intrathoracic stent graft to the aortic bifurcation. Major vessels of the abdominal aorta originate off the true lumen. Left lower lung airspace opacities correlate for pneumonia. Left inguinal hernia containing portions of redundant sigmoid colon. Scattered colonic diverticula. Moderate to severe emphysema changes in the lung bases. WBC 17.4, hemoglobin 11.3, platelet count 176. Electrolytes normal. BUN 44 creatinine 1.6. Blood sugar 165. Liver function test are normal. Influenza A, influenza B, COVID-19, RSV not detected. Home cardiac medications: Aspirin 81 mg daily, Lasix 30 mg daily, lisinopril 10 mg daily, magnesium oxide 500 mg daily, Toprol-XL 25 mg daily, potassium chloride 20 mg twice daily, Aldactone 25 mg daily. Echocardiogram performed 12/07/2022 reveals EF 55%, grade 1 diastolic dysfunction. Moderate to severe tricuspid regurgitation. Review Of Systems: At the time of my exam: CONSTITUTIONAL: Denies fever or chills. HEENT: Denies blurred vision, vision changes, or eye pain. Denies hemoptysis CARDIOVASCULAR: Denies chest pain. Denies orthopnea. Denies PND. Denies palpitations RESPIRATORY: Denies shortness of breath. GASTROINTESTINAL: Denies abdominal pain. Denies nausea or vomiting. HEMATOLOGIC: Denies bleeding disorders. GENITOURINARY: Denies any blood in urine. SKIN: Denies pruitis. Denies rash. Physical examination: Gen: This is a 78-year-old male. VS: reviewed HEENT: Head is atraumatic, normocephalic. Pupils equal, round. Sclerae is anicteric. NECK: Supple. No JVD. LUNGS: Significantly diminished breath sounds bilaterally. + Accessory muscle usage, + intercostal retractions. HEART: Regular rate and rhythm. No murmur. ABDOMEN: Soft No tenderness. EXTREMITIES: No pedal edema. No calf tenderness. NEUROLOGICAL: Patient is awake, alert and oriented x3. Assessment: Incarcerated left inguinal hernia Acute exacerbation of COPD Acute on chronic hypoxic respiratory failure Leukocytosis most likely secondary to steroids as an outpatient History of aortic dissection status postrepair Thrombosis of subclavian artery Hypertension Hyperlipidemia Chronic kidney disease stage III Plan: Resume patient's home cardiac medications No need to repeat echocardiogram Patient is not stable for surgical intervention at this time due to poor respiratory status Further recommendations to follow based upon clinical course Thank you kindly for this consultation. Nurse practitioner note has been reviewed, I agree with documented findings and plan of care. Patient was seen and examined. Past Medical History Past Medical History: COPD, Dialysis, GERD/Reflux, Hyperlipidemia, Hypertension Additional Past Medical History / Comment(s): Neuromuscular dysfunction of bladder, iron deficiency anemia, neurogenic bladder, pressure ulcers, dissection of thoracic aorta, no longer doing dialysis, previous ETOH abuse, [place] 2018, CHF History of Any Multi-Drug Resistant Organisms: ESBL Date of last positivie culture/infection: 02/14/19 ESBL-E.coli MDRO Source:: Urine Past Surgical History: No Surgical Hx Reported Additional Past Surgical History / Comment(s): May 2018 thoracic aorta repair at [facility] Past Anesthesia/Blood Transfusion Reactions: No Reported Reaction Past Psychological History: No Psychological Hx Reported Smoking Status: Former smoker Past Alcohol Use History: Abuse, Daily Additional Past Alcohol Use History / Comment(s): quit 1989, began to drink again occasionally 2011 Past Drug Use History: None Reported Additional Drug Use History / Comment(s): pt stopped smoking 03/16/2022 - Past Family History Father Family Medical History: Cancer Mother Family Medical History: No Reported History Additional Family Medical History / Comment(s): of old age Medications and Allergies Home Medications Medication Instructions Recorded Confirmed Type Aspirin EC [Ecotrin Low Dose] 81 mg PO DAILY 12/06/22 05/28/23 History Multivit-Mins/Iron/Folic/Lycop 1 tab PO DAILY 12/06/22 05/28/23 History [Centrum Men's Tablet] Tamsulosin [Flomax] 0.4 mg PO HS 12/06/22 05/28/23 History Budesonide-Formot 160-4.5 Mcg 2 puff INHALATION RT-BID each 12/14/22 05/28/23 Rx [Symbicort 160-4.5 Mcg Inhaler] Furosemide [Lasix] 30 mg PO DAILY 12/31/22 05/28/23 History Metoprolol Succinate (ER) [Toprol 25 mg PO DAILY #30 12/31/22 05/28/23 Rx XL] Potassium Chloride [Klor-Con M20] 20 meq PO BID@0900,1400 12/31/22 05/28/23 History Ascorbic Acid [Vitamin C] 500 mg PO DAILY 05/28/23 05/28/23 History Ferrous Sulfate [Feosol] 325 mg PO DAILY 05/28/23 05/28/23 History Ipratropium/Albuterol Sulfate 1 puff INHALATION RT-BID 05/28/23 05/28/23 History [Combivent Respimat Inhaler] Magnesium Oxide [Magnesium] 500 mg PO DAILY 05/28/23 05/28/23 History Mirabegron [Myrbetriq] 50 mg PO DAILY 05/28/23 05/28/23 History Omeprazole 20 mg PO DAILY 05/28/23 05/28/23 History Spironolactone [Aldactone] 25 mg PO DAILY 05/28/23 05/28/23 History lisinopriL [Zestril] 10 mg PO DAILY 05/28/23 05/28/23 History predniSONE [Deltasone] See Taper PO DAILY 05/28/23 05/28/23 History Allergies Allergy/AdvReac Type Severity Reaction Status Date / Time No Known Allergies Allergy Verified 05/28/23 15:50 Physical Exam Vitals: Vital Signs Temp Pulse Pulse Resp BP Pulse Ox 05/30/23 04:30 72 18 169/71 95 05/29/23 20:02 78 05/29/23 20:00 97.9 F 63 18 120/70 93 L 05/29/23 19:51 75 05/29/23 15:00 75 20 146/74 93 L 05/29/23 14:00 20 Intake and Output 05/29/23 05/30/23 05/30/23 22:59 06:59 14:59 Intake Total 190 180 Balance 190 180 Intake: IV 10 Invasive Line 1 10 Oral 180 180 Other: Voiding Method Bedside Commode Bedside Commode Diaper Diaper # Voids 1 2 Results 05/30/23 08:07 05/30/23 08:07 Cardiac Enzymes 05/29/23 Range/Units 08:08 AST 31 (17-59) U/L Comprehensive Metabolic Panel 05/29/23 Range/Units 08:08 Sodium 140 (137-145) mmol/L Potassium 4.4 (3.5-5.1) mmol/L Chloride 107 (98-107) mmol/L Carbon Dioxide 30 (22-30) mmol/L BUN 37 H (9-20) mg/dL Creatinine 1.43 H (0.66-1.25) mg/dL Glucose 85 (74-99) mg/dL Calcium 8.3 L (8.4-10.2) mg/dL AST 31 (17-59) U/L ALT 27 (4-49) U/L Alkaline Phosphatase 78 (38-126) U/L Total Protein 5.5 L (6.3-8.2) g/dL Albumin 3.0 L (3.5-5.0) g/dL Current Medications Generic Name Dose Route Start Last Admin Trade Name Freq PRN Reason Stop Dose Admin Albuterol/Ipratropium 3 ml 05/30/23 08:00 Ipratropium-Albuterol 3 Ml Neb INHALATION RT-QID HOME Ascorbic Acid 500 mg 05/30/23 09:00 Ascorbic Acid 500 Mg Tab PO DAILY HOME Aspirin 81 mg 05/30/23 09:00 Aspirin 81 Mg PO DAILY HOME Budesonide/Formoterol Fumarate 2 puff 05/29/23 20:00 05/29/23 19:51 Symbicort 160-4.5 Mcg Inhaler INHALATION 2 puff RT-BID HOME Administration Ferrous Sulfate 325 mg 05/30/23 09:00 Ferrous Sulfate 325 Mg Tab PO DAILY HOME Furosemide 30 mg 05/29/23 14:00 05/29/23 17:14 Furosemide 10 Mg Tab PO 30 mg DAILY HOME Administration Sodium Chloride 1,000 mls @ 50 mls/hr 05/28/23 19:30 05/29/23 21:59 Saline 0.9% IV Not Given .Q20H HOME Lisinopril 10 mg 05/30/23 09:00 Lisinopril 10 Mg Tab PO DAILY [facility] Methylprednisolone Sodium Succinate 40 mg 05/29/23 13:30 05/29/23 20:17 Methylprednisolone Sod Succi 40 Mg/Ml 1 Ml Vial IV 40 mg Q12HR HOME Administration Metoprolol Succinate 25 mg 05/29/23 10:00 05/29/23 12:29 Metoprolol Succinate (Er) 25 Mg Tab.Er.24h PO Not Given DAILY HOME Naloxone HCl 0.2 mg 05/28/23 19:25 Naloxone 0.4 Mg/Ml 1 Ml Vial IV Q2M PRN Opioid Reversal Pantoprazole Sodium 40 mg 05/30/23 07:30 05/30/23 06:43 Pantoprazole 40 Mg Tablet PO 40 mg [id number] HOME Administration Tamsulosin HCl 0.4 mg 05/29/23 21:00 05/29/23 20:17 Tamsulosin 0.4 Mg Cap.Er.24h PO 0.4 mg HS HOME Administration Intake and Output 05/29/23 05/30/23 05/30/23 22:59 06:59 14:59 Intake Total 190 180 Balance 190 180 Intake: IV 10 Invasive Line 1 10 Oral 180 180 Other: Voiding Method Bedside Commode Bedside Commode Diaper Diaper # Voids 1 2 05/29/23 08:08 05/29/23 08:08
--- NOTE | 2023-05-30 14:13 | P.CNPUL ---
History of Present Illness Consult date: 05/30/23 History of present illness: This is a 78-year-old male patient with known history of advanced COPD maintained on Symbicort and Combivent on outpatient basis and the patient has home O2 has been on oxygen for the past 6 months. His baseline FEV1 is in order of 20% of predicted. The patient also has issues with inguinal hernia. The patient underwent repair of inguinal hernia back in 12/09/2022. He presented to the hospital because of abdominal pain. CAT scan of the abdomen and pelvis was done on 05/28/2023 and it showed a left inguinal hernia containing portions of the redundant sigmoid colon and scattered colonic diverticuli. There is also some limited airspace disease involving the left lung base along with advanced and severe emphysematous changes bilaterally and there is also a chronically noted aortic dissection in the inferior aspect of the intrathoracic aorta just behind the previously inserted aortic stent graft and this dissection extends to the level of bifurcation. The patient is having bowel movements. In fact he was having some loose liquidy diarrhea. His white cell count was 27 at time of admission dropped down to 17.4. Hemoglobin 11.3 and the platelet count is 176. He has chronic kidney disease with a BUN of 44 and creatinine 1.6 and his sodium level is at 138 with a potassium level of 4.6. No fever. Currently is on 1 and half liters of oxygen by nasal cannula with a pulse ox of 99%. The chest x-ray is not showing any acute abnormalities. There are some interstitial density in the left lung base. The patient is currently on bronchodilators and steroids as the patient is also having increased dyspnea and he does have some signs of COPD exacerbation. No nausea. No emesis. No altered mentation. Review of Systems CONSTITUTIONAL: Denies any recent significant weight loss or weight gain. EYES: Denies change in vision. EARS, NOSE, MOUTH, THROAT: Denies headaches, denies sore throat. CARDIOVASCULAR: Denies chest pain, palpitations or syncopal episodes. RESPIRATORY: See HPI GASTROINTESTINAL: See HPI. Abdominal pain as mentioned above GENITOURINARY: Denies hematuria, denies infections. MUSKULOSKELETAL: Denies pain, denies swelling. INTEGUMENTARY: Denies rash, denies eczema. NEUROLOGICAL: Denies recent memory loss, no recent seizure activity. PSYCHIATRIC: Denies anxiety, denies depression. HEMATOLOGIC/LYMPHATIC: Denies anemia, denies enlarged lymph node Past Medical History Past Medical History: COPD, Dialysis, GERD/Reflux, Hyperlipidemia, Hypertension Additional Past Medical History / Comment(s): Neuromuscular dysfunction of bladder, iron deficiency anemia, neurogenic bladder, pressure ulcers, dissection of thoracic aorta, no longer doing dialysis, previous ETOH abuse, NH 2018, CHF History of Any Multi-Drug Resistant Organisms: ESBL Date of last positivie culture/infection: 02/14/19 ESBL-E.coli MDRO Source:: Urine Past Surgical History: No Surgical Hx Reported Additional Past Surgical History / Comment(s): May 2018 thoracic aorta repair at [facility] Past Anesthesia/Blood Transfusion Reactions: No Reported Reaction Past Psychological History: No Psychological Hx Reported Smoking Status: Former smoker Past Alcohol Use History: Abuse, Daily Additional Past Alcohol Use History / Comment(s): quit 1989, began to drink again occasionally 2011 Past Drug Use History: None Reported Additional Drug Use History / Comment(s): pt stopped smoking 03/16/2022 - Past Family History Father Family Medical History: Cancer Mother Family Medical History: No Reported History Additional Family Medical History / Comment(s): of old age Medications and Allergies Home Medications Medication Instructions Recorded Confirmed Type Aspirin EC [Ecotrin Low Dose] 81 mg PO DAILY 12/06/22 05/28/23 History Multivit-Mins/Iron/Folic/Lycop 1 tab PO DAILY 12/06/22 05/28/23 History [Centrum Men's Tablet] Tamsulosin [Flomax] 0.4 mg PO HS 12/06/22 05/28/23 History Budesonide-Formot 160-4.5 Mcg 2 puff INHALATION RT-BID each 12/14/22 05/28/23 Rx [Symbicort 160-4.5 Mcg Inhaler] Furosemide [Lasix] 30 mg PO DAILY 12/31/22 05/28/23 History Metoprolol Succinate (ER) [Toprol 25 mg PO DAILY #30 12/31/22 05/28/23 Rx XL] Potassium Chloride [Klor-Con M20] 20 meq PO BID@0900,1400 12/31/22 05/28/23 History Ascorbic Acid [Vitamin C] 500 mg PO DAILY 05/28/23 05/28/23 History Ferrous Sulfate [Feosol] 325 mg PO DAILY 05/28/23 05/28/23 History Ipratropium/Albuterol Sulfate 1 puff INHALATION RT-BID 05/28/23 05/28/23 History [Combivent Respimat Inhaler] Magnesium Oxide [Magnesium] 500 mg PO DAILY 05/28/23 05/28/23 History Mirabegron [Myrbetriq] 50 mg PO DAILY 05/28/23 05/28/23 History Omeprazole 20 mg PO DAILY 05/28/23 05/28/23 History Spironolactone [Aldactone] 25 mg PO DAILY 05/28/23 05/28/23 History lisinopriL [Zestril] 10 mg PO DAILY 05/28/23 05/28/23 History predniSONE [Deltasone] See Taper PO DAILY 05/28/23 05/28/23 History Allergies Allergy/AdvReac Type Severity Reaction Status Date / Time No Known Allergies Allergy Verified 05/28/23 15:50 Physical Exam Vitals: Vital Signs Temp Pulse Pulse Resp BP Pulse Ox 05/30/23 04:30 72 18 169/71 95 05/29/23 20:02 78 05/29/23 20:00 97.9 F 63 18 120/70 93 L 05/29/23 19:51 75 05/29/23 15:00 75 20 146/74 93 L 05/29/23 14:00 20 Intake and Output 05/29/23 05/30/23 05/30/23 22:59 06:59 14:59 Intake Total 190 180 Balance 190 180 Intake: IV 10 Invasive Line 1 10 Oral 180 180 Other: Voiding Method Bedside Commode Bedside Commode Diaper Diaper # Voids 1 2 GENERAL EXAM: Alert, 78-year-old white male, comfortable in no apparent distre ss. Walker at bedside. The patient is currently on 1.5 L of oxygen by nasal cannula pulse ox of 99% HEAD: Normocephalic and atraumatic EYES: Normal reaction of pupils, equal size. NOSE: Clear with pink turbinates. THROAT: No erythema or exudates. NECK: No masses, no JVD. CHEST: No chest wall deformity. LUNGS: Equal air entry with end expiratory wheezes with forced expiratory maneuver. No crackles, rhonchi, or focal dullness. Breath sounds are marked diminished bilaterally. No conversational dyspnea or accessory muscle use while at rest.. CVS: S1 and S2 normal with no audible murmur, regular rhythm. No extra heart sounds ABDOMEN: No hepatosplenomegaly, active bowel sounds, no guarding or rigidity. SPINE: No scoliosis or deformity SKIN: No rashes CENTRAL NERVOUS SYSTEM: No focal deficits, tone is normal in all 4 extremities. EXTREMITIES: There is no peripheral edema, clubbing, or cyanosis. Peripheral pulses are intact. Results - Laboratory Findings CBC and BMP: 05/30/23 08:07 05/30/23 08:07 Abnormal lab findings: Abnormal Labs 05/28/23 05/28/23 05/29/23 16:53 16:53 08:08 WBC 27.7 H 19.1 H RBC 3.99 L 3.69 L Hgb 11.1 L 10.2 L Hct 34.7 L 32.8 L RDW 15.9 H 16.1 H Neutrophils # 25.8 H 16.4 H Lymphocytes # 0.6 L Potassium 5.8 H BUN 42 H Creatinine 1.53 H Glucose 111 H Calcium Total Protein Albumin 05/29/23 05/30/23 05/30/23 08:08 08:07 08:07 WBC 17.4 H RBC 4.12 L Hgb 11.3 L Hct 36.2 L RDW 15.9 H Neutrophils # 16.1 H Lymphocytes # 0.8 L Potassium BUN 37 H 44 H Creatinine 1.43 H 1.60 H Glucose 165 H Calcium 8.3 L Total Protein 5.5 L 6.2 L Albumin 3.0 L - Diagnostic Findings Chest x-ray: image reviewed Assessment and Plan Plan: Acute on chronic dyspnea part today to his COPD. At the same time the patient has an incarcerated left inguinal hernia with secondary abdominal pain. Chronic hypoxic respiratory failure the patient is currently on 1.5 L of O2 nasal cannula Incarcerated left inguinal hernia with secondary abdominal pain. The patient has no signs of any bowel obstruction. Still having bowel movements on a regular basis. General surgery is on the case Possible acute gastroenteritis/diarrhea History of bilateral incarcerated inguinal hernia repairs 12/09/2022 Acute leukocytosis, improving Acute exacerbation of COPD, with secondary shortness of breath Chronic obstructive pulmonary disease, with a FEV1 of 20% of pred, and the patient is on Symbicort and combivent and he has been on 02 at 1 liters/min History of greater than 50 years smoking, quit March 2022 Chronic kidney disease stage III History of neurogenic bladder History of thoracic aortic aneurysm/aortic valve repair at [facility] May 2018, and the patient has chronic dissection in the aorta below the Endo vascular stent graft extending to the level of the bifurcation of the aorta. Hypertension Hyperlipidemia History of depression Plan: Agree on DuoNeb nebulized treatments [id number] Continue Symbicort IV Solu-Medrol 40 mg every 12 hours Patient negative for influenza, RSV, COVID General surgery consultation regarding this inguinal hernia Monitor the renal function Patient has chronic stable aortic dissection He is considered to be high risk for developing postoperative pulmonary complication should there be any need for any form of surgery including general surgery for an incarcerated left inguinal hernia. This entails respiratory failure, requiring intubation mechanical ventilation. The patient was made aware. This will be further discussed with general surgery. Cardiology consultation Vascular surgery consultation is appreciated Encourage incentive spirometer Will collaborate care with general surgery Will continue to follow Prognosis in general poor secondary above-mentioned comorbidities.
--- NOTE | 2023-05-30 15:00 | P.PN ---
Subjective Progress Note Date: 05/30/23 CHIEF COMPLAINT: Left lower quadrant abdominal pain HISTORY OF PRESENT ILLNESS: Patient with recurrent left inguinal hernia with a left groin pain. Currently being treated for COPD exacerbation. Requiring nebulizer treatments and steroids. Patient on 1.5 L of oxygen. Usually on 1 L at home. Afebrile. WBC 19 down to 17.4 Hgb 11.3 creatinine 1.6. Patient evaluated by both cardiology and pulmonary service. Noted pulmonary service reported patient high risk for surgical intervention. PHYSICAL EXAM: VITAL SIGNS: Reviewed GENERAL: Well-developed in no acute distress. HEENT: No sclera icterus. Extraocular movements grossly intact. Moist buccal mucosa. Head is atraumatic, normocephalic. Hears conversational speech. No nasal drainage. NECK: Supple without lymphadenopathy. CHEST: Non-labored respirations and equal bilateral excursions. CARDIOVASCULAR: Palpable 2+ radial pulses. ABDOMEN: Soft. Nondistended. Left inguinal hernia reducible. Mild tenderness with palpation of the left groin. MUSCULOSKELETAL: No clubbing or cyanosis. NEUROLOGIC: No focal or lateralizing signs. Cranial nerves II through XII grossly intact. PSYCH: Appropriate affect. Alert and oriented to person, place and time. SKIN: Well perfused. Good skin turgor. ASSESSMENT: 1. Recurrent left inguinal hernia 2. Symptomatic left groin pain 3. Acute COPD exacerbation 4. Chronic aortic dissection 5. History of aortic aneurysm status post stent PLAN: -Recommend robotic bilateral inguinal hernia repair on , 06/02/[address] Roberts -Continue heart healthy diet Physician Hat Finisher note has been reviewed by physician. Signing provider agrees with the documented findings, assessment, and plan of care. Objective - Vital Signs Vital signs: Vital Signs Temp 98.2 F 05/30/23 07:00 Pulse 64 05/30/23 12:00 Resp 18 05/30/23 12:00 BP 156/70 05/30/23 12:00 Pulse Ox 99 05/30/23 12:00 FiO2 Intake & Output 05/29/23 05/30/23 05/30/23 18:59 06:59 18:59 Intake Total 540 10 840 Balance 540 10 840 Weight 53.1 kg Intake: IV 10 Invasive Line 1 10 Oral 540 840 Other: Voiding Method Bedside Commode Bedside Commode Diaper Diaper # Voids 1 2 1 # Bowel Movements 1 - Labs CBC & Chem 7: 05/30/23 08:07 05/30/23 08:07 Labs: Abnormal Lab Results - Last 24 Hours (Table) 05/30/23 05/30/23 Range/Units 08:07 08:07 WBC 17.4 H (3.8-10.6) k/uL RBC 4.12 L (4.30-5.90) m/uL Hgb 11.3 L (13.0-17.5) gm/dL Hct 36.2 L (39.0-53.0) % RDW 15.9 H (11.5-15.5) % Neutrophils # 16.1 H (1.3-7.7) k/uL Lymphocytes # 0.8 L (1.0-4.8) k/uL BUN 44 H (9-20) mg/dL Creatinine 1.60 H (0.66-1.25) mg/dL Glucose 165 H (74-99) mg/dL Total Protein 6.2 L (6.3-8.2) g/dL
[2023-05-30 15:12] VITALS: BMI 17.8
--- NOTE | 2023-05-31 05:47 | P.PN ---
Subjective Progress Note Date: 05/30/23 HISTORY OF PRESENT ILLNESS: History of present illness; patient 78-year-old male patient with a history of chronic obstructive pulmonary disease, former smoker, daily alcohol use, gastroesophageal reflux disease, hypertension, hyperlipidemia, neuromuscular dysfunction and the bladder,, previous thoracic aortic aneurysm repair for aortic valve repair, chronic aortic dissection who presented to the ER for abdominal pain. Stated he was all right yesterday when after eating Filipino food he started having abdominal pain. Abdominal pain was initially generalized but later on progressed to involve the left lower quadrant. Patient also having profuse diarrhea, stools were watery in consistency, no blood in it. There was complaint of nausea and vomiting. Denied any fever but was complaining of chills. There was no complaint of orthopnea or PND. There was no cough no nyla st pain or shortness of breath. Patient thinks all this is secondary to him eating tacos and does not think they are most hygienic. Because abdominal pain, patient came to the ER. CT abdominal pelvis done showed redemonstration of aortic dissection extending from the inferior aspect of the intrathoracic stent graft to the aortic bifurcation. Left lower lung opacities correlate for pneumonia. Left inguinal hernia containing portion of redundant sigmoid colon. Patient was seen general surgery despite having this hernia repair 6 months ago looks like there is a relapse hernia need to be repaired. The patient is hemodynamically stable at this point with history of mild COPD, mild congestive heart failure and history of EtOH. Patient will be stabilized and probably eventually go for surgery. 05-30-2023: Patient is feeling slightly better continue having slight pain and discomfort consult pulmonary review cardiovascular testing patient seen cardiology see when was the last echocardiogram plan for clearance and getting patient ready probably for surgery. REVIEW OF SYSTEMS: CONSTITUTIONAL: Very thin and looks malnourished in no respiratory distress EYES: No icterus sclerae, no conjunctivitis. EARS, NOSE, MOUTH, THROAT, and FACE: No sore throat, lymphadenopathy, carotid bruits or deformity. RESPIRATORY: Mild shortness of cough and wheezes. CARDIOVASCULAR: History of mild congestive heart failure no chest pain or angina PND orthopnea or palpitation. GASTROINTESTINAL: Positive abdominal pain with nausea no vomiting still having stool. GENITOURINARY: Negative for Hematuria or UTI, no kidney stones. INTEGUMENT/BREAST: Negative for any muscular injury with mild osteoarthritis.. HEMATOLOGIC/LYMPHATIC: Negative for bleed or purpura. MUSCULOSKELTAL: Negative for Myalgia or arthralgia. NEURLOGICAL: No LOC, Sz or syncope, blurred vision dizziness or abnormality.. BEHAVIORAL/PSYCH: Negative. ENDOCRINE: Negative. PHYSICAL EXAMINATION: General Appearance: Alert, cooperative, no distress, looks older than his age and quite thin and malnourished. Neck HEENT: Supple, no lymphadenopathy, no thyroid enlargement, no carotid brui ts. Lungs: Decreased breath sound bilaterally with rhonchi positive mild expiratory wheezes. Chest Wall: Decreased expansion with deep inspiration no tenderness and no deformity was found on exam, no costochondral pain or discomfort. Heart: Regular rate and rhythm, S1, S2 normal, no murmur, rub or gallop. Back: Symmetric, no curvature, ROM normal, no CVA tenderness. Abdomen: Significant tenderness and discomfort lower abdominal region area mostly on the left side with no rebound or rigidity. Extremities: Extremities normal, atraumatic, no cyanosis or edema. Pulses: 2+ and symmetric. Skin: Skin color, texture, tugor normal, no rashes or lesions. Neurologic: Alert oriented x3 cranial nerves II through XII intact, no motor deficit, no abnormal balance or gait. ASSESSMENT AND PLAN: _Severe abdominal pain: Incarcerated hernia with recurrent hernia might require to be repaired. Surgical consultation is done CAT scan is completed showing prolapse hernia patient will need to go for surgery. _Mild COPD: Remain on DuoNeb and Pulmicort still on Solu-Medrol 40 mg every 12 hours pulmonary consultation continue O2 titrate To keep pulse ox above 92%. Mild congestive heart failure: Has been on spironolactone, lisinopril, metoprolol and furosemide resume medication will consult cardiology review last echocardiogram see if patient need to have any further testing before surgery. - Chronic kidney disease stage III with acute kidney injury, continue hydration lower any nephrotoxic agent at this point. - Leukocytosis: Mild clear etiology could be the severity of the inflamed area around the hernia patient should be on antibiotics to cover it also repeat culture. - Anemia: Mostly iron deficiency will look for any acute bleed continue pantoprazole for GI prophylaxis watch for any decline in hemoglobin in the next 24 hours. - BPH: For any urinary retention continue Flomax. - GI prophylaxis: Patient be on pantoprazole. - DVT prophylaxis: Knee-high LUDA hose and Venodyne boots no anticoagulation at this point. Objective - Vital Signs Vital signs: Vital Signs Temp 97.9 F 05/29/23 20:00 Pulse 72 05/30/23 04:30 Resp 18 05/30/23 04:30 BP 169/71 05/30/23 04:30 Pulse Ox 95 05/30/23 04:30 FiO2 Intake & Output 05/29/23 05/29/23 05/30/23 06:59 18:59 06:59 Intake Total 540 10 Balance 540 10 Weight 52.617 kg Intake: IV 10 Invasive Line 1 10 Oral 540 Other: Voiding Method Bedside Commode Diaper # Voids 1 1 3 # Bowel Movements 1 1 - Labs CBC & Chem 7: 05/29/23 08:08 05/29/23 08:08 Labs: Abnormal Lab Results - Last 24 Hours (Table) 05/29/23 05/29/23 Range/Units 08:08 08:08 WBC 19.1 H (3.8-10.6) k/uL RBC 3.69 L (4.30-5.90) m/uL Hgb 10.2 L (13.0-17.5) gm/dL Hct 32.8 L (39.0-53.0) % RDW 16.1 H (11.5-15.5) % Neutrophils # 16.4 H (1.3-7.7) k/uL BUN 37 H (9-20) mg/dL Creatinine 1.43 H (0.66-1.25) mg/dL Calcium 8.3 L (8.4-10.2) mg/dL Total Protein 5.5 L (6.3-8.2) g/dL Albumin 3.0 L (3.5-5.0) g/dL
--- NOTE | 2023-05-31 12:25 | P.PN ---
Subjective Progress Note Date: 05/31/23 History of present illness: This is a 78-year-old male patient of Dr. Josi Schofield with past medical history of chronic hypoxic respiratory failure on home O2 at 1 L nasal cannula, aortic dissection status postrepair at [facility] in 2019, thrombosis of subclavian artery, hypertension, dyslipidemia, remote history of tobacco use and dependence, COPD, benign prostatic hypertrophy, chronic kidney disease stage III. We have been asked to evaluate the patient for cardiac risk assessment. Patient presented to the hospital due to abdominal pain was diagnosed by general surgery to have a left inguinal hernia that needs to be redone. Patient is having significant difficulty in breathing secondary to COPD exacerbation. Stat nebulizer treatment ordered. Chest x-ray performed this morning reveals COPD. Mild interstitial density in the lower lungs could reflect bronchitis or subtle interstitial infiltrates or atypical pneumonia. Early pulmonary vascular congestion is also possible. CT of the abdomen pelvis revealed aortic dissection extending from the inferior aspect of the intrathoracic stent graft to the aortic bifurcation. Major vessels of the abdominal aorta originate off the true lumen. Left lower lung airspace opacities correlate for pneumonia. Left inguinal hernia containing portions of redundant sigmoid colon. Scattered colonic diverticula. Moderate to severe emphysema changes in the lung bases. WBC 17.4, hemoglobin 11.3, platelet count 176. Electrolytes normal. BUN 44 creatinine 1.6. Blood sugar 165. Liver function test are normal. Influenza A, influenza B, COVID-19, RSV not detected. Home cardiac medications: Aspirin 81 mg daily, Lasix 30 mg daily, lisinopril 10 mg daily, magnesium oxide 500 mg daily, Toprol-XL 25 mg daily, potassium chloride 20 mg twice daily, Aldactone 25 mg daily. Echocardiogram performed 12/07/2022 reveals EF 55%, grade 1 diastolic dysfunction. Moderate to severe tricuspid regurgitation. 05/31 Patient's breathing is better but he continues to have wheezing. He is tentatively scheduled for inguinal hernia surgery on . Blood pressure 148/54, heart rate in the 80s and 90s, pulse ox 97% on 1 and half liters nasal cannula Physical examination: Gen: This is a 78-year-old male. VS: reviewed HEENT: Head is atraumatic, normocephalic. Pupils equal, round. Sclerae is anicteric. NECK: Supple. No JVD. LUNGS:diminished breath sounds bilaterally. HEART: Regular rate and rhythm. No murmur. ABDOMEN: Soft No tenderness. EXTREMITIES: No pedal edema. No calf tenderness. NEUROLOGICAL: Patient is awake, alert and oriented x3. Assessment: Incarcerated left inguinal hernia scheduled for surgery on Acute exacerbation of COPD Acute on chronic hypoxic respiratory failure Leukocytosis most likely secondary to steroids as an outpatient History of aortic dissection status postrepair Thrombosis of subclavian artery Hypertension Hyperlipidemia Chronic kidney disease stage III Plan: Continue patient's home cardiac medications No need to repeat echocardiogram Further recommendations to follow based upon clinical course Nurse practitioner note has been reviewed, I agree with documented findings and plan of care. Patient was seen and examined. Objective - Vital Signs Vital signs: Vital Signs Temp 97.7 F 05/31/23 03:58 Pulse 98 05/31/23 03:58 Resp 18 05/31/23 03:58 BP 171/75 05/31/23 03:58 Pulse Ox 94 L 05/31/23 03:58 FiO2 Intake & Output 05/30/23 05/31/23 05/31/23 18:59 06:59 18:59 Intake Total 1320 10 480 Balance 1320 10 480 Weight 53.1 kg Intake: IV 10 Invasive Line 1 10 Oral 1320 480 Other: Voiding Method Bedside Commode Bedside Commode Diaper Diaper # Voids 2 2 1 - Labs CBC & Chem 7: 05/30/23 08:07 05/30/23 08:07 Labs: Abnormal Lab Results - Last 24 Hours (Table) 05/30/23 05/30/23 Range/Units 08:07 08:07 WBC 17.4 H (3.8-10.6) k/uL RBC 4.12 L (4.30-5.90) m/uL Hgb 11.3 L (13.0-17.5) gm/dL Hct 36.2 L (39.0-53.0) % RDW 15.9 H (11.5-15.5) % Neutrophils # 16.1 H (1.3-7.7) k/uL Lymphocytes # 0.8 L (1.0-4.8) k/uL BUN 44 H (9-20) mg/dL Creatinine 1.60 H (0.66-1.25) mg/dL Glucose 165 H (74-99) mg/dL Total Protein 6.2 L (6.3-8.2) g/dL
--- NOTE | 2023-05-31 13:25 | P.PN ---
Subjective Progress Note Date: 05/31/23 This is a 78-year-old male patient with known history of advanced COPD maintained on Symbicort and Combivent on outpatient basis and the patient has home O2 has been on oxygen for the past 6 months. His baseline FEV1 is in order of 20% of predicted. The patient also has issues with inguinal hernia. The patient underwent repair of inguinal hernia back in 12/09/2022. He presented to the hospital because of abdominal pain. CAT scan of the abdomen and pelvis was done on 05/28/2023 and it showed a left inguinal hernia containing portions of the redundant sigmoid colon and scattered colonic diverticuli. There is also some limited airspace disease involving the left lung base along with advanced and severe emphysematous changes bilaterally and there is also a chronically noted aortic dissection in the inferior aspect of the intrathoracic aorta just behind the previously inserted aortic stent graft and this dissection extends to the level of bifurcation. The patient is having bowel movements. In fact he was having some loose liquidy diarrhea. His white cell count was 27 at time of admission dropped down to 17.4. Hemoglobin 11.3 and the platelet count is 176. He has chronic kidney disease with a BUN of 44 and creatinine 1.6 and his sodium level is at 138 with a potassium level of 4.6. No fever. Currently is on 1 and half liters of oxygen by nasal cannula with a pulse ox of 99%. The chest x-ray is not showing any acute abnormalities. There are some interstitial density in the left lung base. The patient is currently on bronchodilators and steroids as the patient is also having increased dyspnea and he does have some signs of COPD exacerbation. No nausea. No emesis. No altered mentation. On today's evaluation of 05/31/2023, I am seeing the patient for a follow-up. The patient has advanced COPD maintained on Symbicort and Combivent on outpatient basis. The patient also has had difficulty with a incarcerated left inguinal hernia. The plan is to proceed with surgery and surgery has been tentatively planned to be done on 06/02/2023. Clinically the patient is feeling better. Less short of breath. Responding to the combination of bronchodilators and steroids. The patient is currently on IV Solu-Medrol 40 mg every 12 hours. He is also on DuoNeb updrafts and Symbicort. He is using the incentive spirometer. No fever or chills. No significant sputum production. No chest pain. No new labs are available from today. The viral screen was negative. Objective - Vital Signs Vital signs: Vital Signs Temp 98 F 05/31/23 08:00 Pulse 89 05/31/23 11:18 Resp 16 05/31/23 11:18 BP 148/54 05/31/23 11:18 Pulse Ox 97 05/31/23 11:18 FiO2 Intake & Output 05/30/23 05/31/23 05/31/23 18:59 06:59 18:59 Intake Total 1320 10 480 Balance 1320 10 480 Weight 53.1 kg Intake: IV 10 Invasive Line 1 10 Oral 1320 480 Other: Voiding Method Bedside Commode Bedside Commode Bedside Commode Diaper Diaper Diaper # Voids 2 2 1 - Exam This is a 78-year-old male patient with known history of advanced COPD maintained on Symbicort and Combivent on outpatient basis and the patient has home O2 has been on oxygen for the past 6 months. His baseline FEV1 is in order of 20% of predicted. The patient also has issues with inguinal hernia. The patient underwent repair of inguinal hernia back in 12/09/2022. He presented to the hospital because of abdominal pain. CAT scan of the abdomen and pelvis was done on 05/28/2023 and it showed a left inguinal hernia containing portions of the redundant sigmoid colon and scattered colonic diverticuli. There is also some limited airspace disease involving the left lung base along with advanced and severe emphysematous changes bilaterally and there is also a chronically noted aortic dissection in the inferior aspect of the intrathoracic aorta just behind the previously inserted aortic stent graft and this dissection extends to the level of bifurcation. The patient is having bowel movements. In fact he was having some loose liquidy diarrhea. His white cell count was 27 at time of admission dropped down to 17.4. Hemoglobin 11.3 and the platelet count is 176. He has chronic kidney disease with a BUN of 44 and creatinine 1.6 and his sodium level is at 138 with a potassium level of 4.6. No fever. Currently is on 1 and half liters of oxygen by nasal cannula with a pulse ox of 99%. The chest x-ray is not showing any acute abnormalities. There are some interstitial density in the left lung base. The patient is currently on bronchodilators and steroids as the patient is also having increased dyspnea and he does have some signs of COPD exacerbation. No nausea. No emesis. No altered mentation. - Labs CBC & Chem 7: 05/30/23 08:07 05/30/23 08:07 Assessment and Plan Plan: Acute on chronic dyspnea part today to his COPD. At the same time the patient has an incarcerated left inguinal hernia with secondary abdominal pain. Chronic hypoxic respiratory failure the patient is currently on 1.5 L of O2 nasal cannula Incarcerated left inguinal hernia with secondary abdominal pain. The patient has no signs of any bowel obstruction. Still having bowel movements on a regular basis. General surgery is on the case, Clinically stable awaiting kaylen kay to be done on 06/02/2023 Possible acute gastroenteritis/diarrhea History of bilateral incarcerated inguinal hernia repairs 12/09/2022 Acute leukocytosis, improving Acute exacerbation of COPD, with secondary shortness of breath Chronic obstructive pulmonary disease, with a FEV1 of 20% of pred, and the patient is on Symbicort and combivent and he has been on 02 at 1 liters/min History of greater than 50 years smoking, quit March 2022 Chronic kidney disease stage III History of neurogenic bladder History of thoracic aortic aneurysm/aortic valve repair at [facility] May 2018, and the patient has chronic dissection in the aorta below the Endo vascular stent graft extending to the level of the bifurcation of the aorta. Hypertension Hyperlipidemia History of depression Plan: Respiratory status is more stable compared to yesterday as the patient is being treated with a combination of bronchodilators and steroids. Agree on DuoNeb nebulized treatments [id number] Continue Symbicort IV Solu-Medrol 40 mg every 12 hours Patient negative for influenza, RSV, COVID General surgery consultation regarding this inguinal hernia, surgery to be done on 06/02/2023 Monitor the renal function Patient has chronic stable aortic dissection He is considered to be high risk for developing postoperative pulmonary complication should there be any need for any form of surgery including general surgery for an incarcerated left inguinal hernia. This entails respiratory failure, requiring intubation mechanical ventilation. The patient was made aware. This will be further discussed with general surgery. Cardiology consultation Vascular surgery consultation is appreciated Encourage incentive spirometer Will collaborate care with general surgery Will continue to follow Prognosis in general poor secondary above-mentioned comorbidities.
--- NOTE | 2023-05-31 15:31 | P.PN ---
Subjective Progress Note Date: 05/31/23 CHIEF COMPLAINT: Left lower quadrant abdominal pain HISTORY OF PRESENT ILLNESS: Patient with recurrent left inguinal hernia with a left groin pain. Patient currently denies any pain. Hernias are currently reduced. Denies any nausea or vomiting. Patient reports that his breathing is better today. He has been getting his nebulizer treatments scheduled. Currently being treated for COPD exacerbation. Requiring nebulizer treatments and steroids. Patient on 1.5 L of oxygen. Afebrile. WBC 17.4 patient evaluated by both cardiology and pulmonary service. Noted pulmonary service reported patient high risk for surgical intervention. PHYSICAL EXAM: VITAL SIGNS: Reviewed GENERAL: Well-developed in no acute distress. HEENT: No sclera icterus. Extraocular movements grossly intact. Moist buccal mucosa. Head is atraumatic, normocephalic. Hears conversational speech. No nasal drainage. NECK: Supple without lymphadenopathy. CHEST: Non-labored respirations and equal bilateral excursions. CARDIOVASCULAR: Palpable 2+ radial pulses. ABDOMEN: Soft. Nondistended. Bilateral inguinal hernia is reduced. Nontender MUSCULOSKELETAL: No clubbing or cyanosis. NEUROLOGIC: No focal or lateralizing signs. Cranial nerves II through XII grossly intact. PSYCH: Appropriate affect. Alert and oriented to person, place and time. SKIN: Well perfused. Good skin turgor. ASSESSMENT: 1. Recurrent bilateral inguinal hernia 2. Symptomatic left groin pain 3. Acute COPD exacerbation 4. Chronic aortic dissection 5. History of aortic aneurysm status post stent PLAN: -Patient is scheduled for Robotic bilateral inguinal hernia repair on 06/03/[address] Roberts if patient is medically optimized -Continue to medically optimize patient -Continue heart healthy diet Physician Equipment Maintenance Supervisor note has been reviewed by physician. Signing provider agrees with the documented findings, assessment, and plan of care. Objective - Vital Signs Vital signs: Vital Signs Temp 98 F 05/31/23 08:00 Pulse 89 05/31/23 12:53 Resp 16 05/31/23 11:18 BP 148/54 05/31/23 11:18 Pulse Ox 97 05/31/23 11:18 FiO2 Intake & Output 05/30/23 05/31/23 05/31/23 18:59 06:59 18:59 Intake Total 1320 10 480 Balance 1320 10 480 Weight 53.1 kg Intake: IV 10 Invasive Line 1 10 Oral 1320 480 Other: Voiding Method Bedside Commode Bedside Commode External Catheter Diaper Diaper # Voids 2 2 1 - Labs CBC & Chem 7: 05/30/23 08:07 05/30/23 08:07
--- NOTE | 2023-06-01 05:47 | P.PN ---
Subjective Progress Note Date: 05/31/23 HISTORY OF PRESENT ILLNESS: History of present illness; patient 78-year-old male patient with a history of chronic obstructive pulmonary disease, former smoker, daily alcohol use, gastroesophageal reflux disease, hypertension, hyperlipidemia, neuromuscular dysfunction and the bladder,, previous thoracic aortic aneurysm repair for aortic valve repair, chronic aortic dissection who presented to the ER for abdominal pain. Stated he was all right yesterday when after eating [place] food he started having abdominal pain. Abdominal pain was initially generalized but later on progressed to involve the left lower quadrant. Patient also having profuse diarrhea, stools were watery in consistency, no blood in it. There was complaint of nausea and vomiting. Denied any fever but was complaining of chills. There was no complaint of orthopnea or PND. There was no cough no nyla st pain or shortness of breath. Patient thinks all this is secondary to him eating tacos and does not think they are most hygienic. Because abdominal pain, patient came to the ER. CT abdominal pelvis done showed redemonstration of aortic dissection extending from the inferior aspect of the intrathoracic stent graft to the aortic bifurcation. Left lower lung opacities correlate for pneumonia. Left inguinal hernia containing portion of redundant sigmoid colon. Patient was seen general surgery despite having this hernia repair 6 months ago looks like there is a relapse hernia need to be repaired. The patient is hemodynamically stable at this point with history of mild COPD, mild congestive heart failure and history of EtOH. Patient will be stabilized and probably eventually go for surgery. 05-30-2023: Patient is feeling slightly better continue having slight pain and discomfort consult pulmonary review cardiovascular testing patient seen cardiology see when was the last echocardiogram plan for clearance and getting patient ready probably for surgery. 05-31-2023: Patient is feeling better, significantly decreasing abdominal pain and discomfort. He was seen and evaluated by vascular, cardiology, and pulmonary try to optimize his medical management and the plan is to go for robot ic bilateral hernia repair again on 06-02-2023. Will review his labs today, increase physical activity with physical therapy, awaiting for surgery in the next 48 hours. Patient in the meanwhile stable doing well. The exception of his slight decline in kidney function with creatinine is up to 1.60 his white blood cell is down 17.4, blood sugar still mildly elevated being managed currently. Pulmonary dejesus with his FEV1 only 20 percentile patient was started on Solu-Medrol 40 mg every 12 hours given the the possibility that patient might require mechanical ventilation with surgery the patient is aware if it is willing to. The details of his aneurysm repair at [facility] years ago that he had stable dissection does not require any attention at this point just to monitor his blood pressure and keep it under control. On last at least Cardiology are aware of patient comorbidity his echocardiogram is recent did not require any repeat echo at this point just to maximize his medical management and he will be ready for surgery. REVIEW OF SYSTEMS: CONSTITUTIONAL: Very thin and looks malnourished in no respiratory distress EYES: No icterus sclerae, no conjunctivitis. EARS, NOSE, MOUTH, THROAT, and FACE: No sore throat, lymphadenopathy, carotid bruits or deformity. RESPIRATORY: Mild shortness of cough and wheezes. CARDIOVASCULAR: History of mild congestive heart failure no chest pain or angina PND orthopnea or palpitation. GASTROINTESTINAL: Positive abdominal pain with nausea no vomiting still having stool. GENITOURINARY: Negative for Hematuria or UTI, no kidney stones. INTEGUMENT/BREAST: Negative for any muscular injury with mild osteoarthritis.. HEMATOLOGIC/LYMPHATIC: Negative for bleed or purpura. MUSCULOSKELTAL: Negative for Myalgia or arthralgia. NEURLOGICAL: No LOC, Sz or syncope, blurred vision dizziness or abnormality.. BEHAVIORAL/PSYCH: Negative. ENDOCRINE: Negative. PHYSICAL EXAMINATION: General Appearance: Alert, cooperative, no distress, looks older than his age and quite thin and malnourished. Neck HEENT: Supple, no lymphadenopathy, no thyroid enlargement, no carotid br uits. Lungs: Decreased breath sound bilaterally with rhonchi positive mild expiratory wheezes. Chest Wall: Decreased expansion with deep inspiration no tenderness and no deformity was found on exam, no costochondral pain or discomfort. Heart: Regular rate and rhythm, S1, S2 normal, no murmur, rub or gallop. Back: Symmetric, no curvature, ROM normal, no CVA tenderness. Abdomen: Significant tenderness and discomfort lower abdominal region area mostly on the left side with no rebound or rigidity. Extremities: Extremities normal, atraumatic, no cyanosis or edema. Pulses: 2+ and symmetric. Skin: Skin color, texture, tugor normal, no rashes or lesions. Neurologic: Alert oriented x3 cranial nerves II through XII intact, no motor deficit, no abnormal balance or gait. ASSESSMENT AND PLAN: _Severe abdominal pain: Bilateral relapse hernia repair from 2 months ago he will be required to go for another surgery. _Severe COPD: Remain on DuoNeb and Pulmicort still on Solu-Medrol 40 mg every 12 hours pulmonary consultation continue O2 titrate To keep pulse ox above 92%. His FEV1 is 20 percentile patient might require mechanical ventilation after surgery. _ Mild congestive heart failure: Has been on spironolactone, lisinopril, metoprolol and furosemide resume medication will consult cardiology review last echocardiogram see if patient need to have any further testing before surgery. - Chronic kidney disease stage III with acute kidney injury, continue hydration lower any nephrotoxic agent at this point. Continue to watch kidney function on daily basis. - Leukocytosis: Mild clear etiology could be the severity of the inflamed area around the hernia patient should be on antibiotics to cover it also repeat culture. Having to be on steroids to make his leukocytosis slightly bit worse. - Anemia: Mostly iron deficiency will look for any acute bleed continue pantoprazole for GI prophylaxis watch for any decline in hemoglobin in the next 24 hours. - BPH: No sign of any urinary retention continue Flomax. - GI prophylaxis: Patient be on pantoprazole. - DVT prophylaxis: Knee-high LUDA hose and Venodyne boots no anticoagulation at this point. Objective - Vital Signs Vital signs: Vital Signs Temp 97.7 F 05/31/23 03:58 Pulse 98 05/31/23 03:58 Resp 18 05/31/23 03:58 BP 171/75 05/31/23 03:58 Pulse Ox 94 L 05/31/23 03:58 FiO2 Intake & Output 05/30/23 05/30/23 05/31/23 06:59 18:59 06:59 Intake Total 10 1320 10 Balance 10 1320 10 Weight 53.1 kg Intake: IV 10 10 Invasive Line 1 10 10 Oral 1320 Other: Voiding Method Bedside Commode Bedside Commode Bedside Commode Diaper Diaper Diaper # Voids 2 2 2 - Labs CBC & Chem 7: 05/30/23 08:07 05/30/23 08:07 Labs: Abnormal Lab Results - Last 24 Hours (Table) 05/30/23 05/30/23 Range/Units 08:07 08:07 WBC 17.4 H (3.8-10.6) k/uL RBC 4.12 L (4.30-5.90) m/uL Hgb 11.3 L (13.0-17.5) gm/dL Hct 36.2 L (39.0-53.0) % RDW 15.9 H (11.5-15.5) % Neutrophils # 16.1 H (1.3-7.7) k/uL Lymphocytes # 0.8 L (1.0-4.8) k/uL BUN 44 H (9-20) mg/dL Creatinine 1.60 H (0.66-1.25) mg/dL Glucose 165 H (74-99) mg/dL Total Protein 6.2 L (6.3-8.2) g/dL
--- NOTE | 2023-06-01 11:16 | P.PN ---
Subjective Progress Note Date: 06/01/23 History of present illness: This is a 78-year-old male patient of Dr. Josi Schofield with past medical history of chronic hypoxic respiratory failure on home O2 at 1 L nasal cannula, aortic dissection status postrepair at [facility] in 2019, thrombosis of subclavian artery, hypertension, dyslipidemia, remote history of tobacco use and dependence, COPD, benign prostatic hypertrophy, chronic kidney disease stage III. We have been asked to evaluate the patient for cardiac risk assessment. Patient presented to the hospital due to abdominal pain was diagnosed by general surgery to have a left inguinal hernia that needs to be redone. Patient is having significant difficulty in breathing secondary to COPD exacerbation. Stat nebulizer treatment ordered. Chest x-ray performed this morning reveals COPD. Mild interstitial density in the lower lungs could reflect bronchitis or subtle interstitial infiltrates or atypical pneumonia. Early pulmonary vascular congestion is also possible. CT of the abdomen pelvis revealed aortic dissection extending from the inferior aspect of the intrathoracic stent graft to the aortic bifurcation. Major vessels of the abdominal aorta originate off the true lumen. Left lower lung airspace opacities correlate for pneumonia. Left inguinal hernia containing portions of redundant sigmoid colon. Scattered colonic diverticula. Moderate to severe emphysema changes in the lung bases. WBC 17.4, hemoglobin 11.3, platelet count 176. Electrolytes normal. BUN 44 creatinine 1.6. Blood sugar 165. Liver function test are normal. Influenza A, influenza B, COVID-19, RSV not detected. Home cardiac medications: Aspirin 81 mg daily, Lasix 30 mg daily, lisinopril 10 mg daily, magnesium oxide 500 mg daily, Toprol-XL 25 mg daily, potassium chloride 20 mg twice daily, Aldactone 25 mg daily. Echocardiogram performed 12/07/2022 reveals EF 55%, grade 1 diastolic dysfunction. Moderate to severe tricuspid regurgitation. 05/31 Patient's breathing is better but he continues to have wheezing. He is tentatively scheduled for inguinal hernia surgery on . Blood pressure 148/54, heart rate in the 80s and 90s, pulse ox 97% on 1 and half liters nasal cannula 06/01 Patient remains in sinus rhythm, heart rate 80-102, blood pressure 105/63, pulse ox 97% on 1/2 L nasal cannula. Lab work is been ordered for tomorrow. Patient's surgery date has been postponed to Tuesday. Patient's respiratory status appears more stable. He states his shortness of breath is improving. No lower extremity edema. Heart rate is running between 80-101, blood pressure 131/75. Physical examination: Gen: This is a 78-year-old male. VS: reviewed HEENT: Head is atraumatic, normocephalic. Pupils equal, round. Sclerae is anicteric. NECK: Supple. No JVD. LUNGS:diminished breath sounds bilaterally, scattered expiratory wheeze. HEART: Regular rate and rhythm. No murmur. ABDOMEN: Soft No tenderness. EXTREMITIES: No pedal edema. No calf tenderness. NEUROLOGICAL: Patient is awake, alert and oriented x3. Assessment: Incarcerated left inguinal hernia scheduled for surgery on Tuesday Acute exacerbation of COPD Acute on chronic hypoxic respiratory failure Leukocytosis most likely secondary to steroids as an outpatient History of aortic dissection status postrepair Thrombosis of subclavian artery Hypertension Hyperlipidemia Chronic kidney disease stage III Plan: Continue patient's home cardiac medications No need to repeat echocardiogram Further recommendations to follow based upon clinical course Nurse practitioner note has been reviewed, I agree with documented findings and plan of care. Patient was seen and examined. Objective - Vital Signs Vital signs: Vital Signs Temp 98.3 F 06/01/23 04:00 Pulse 82 06/01/23 08:33 Resp 16 06/01/23 04:00 BP 146/72 06/01/23 04:00 Pulse Ox 99 06/01/23 08:20 FiO2 Intake & Output 05/31/23 06/01/23 06/01/23 18:59 06:59 18:59 Intake Total 1080 Output Total 150 Balance 930 Intake: Oral 1080 Output: Urine 150 Other: Voiding Method External Catheter External Catheter # Voids 1 - Labs CBC & Chem 7: 05/30/23 08:07 05/30/23 08:07
--- NOTE | 2023-06-01 13:48 | P.PN ---
Subjective Progress Note Date: 06/01/23 CHIEF COMPLAINT: Left lower quadrant abdominal pain HISTORY OF PRESENT ILLNESS: Patient with recurrent left inguinal hernia with a left groin pain. Patient reports minimal discomfort in the left groin. He is having flatus. No bowel movement. Denies any nausea or vomiting. Tolerating diet. Reports that his breathing is improving. Afebrile. Patient followed by pulmonary service. PHYSICAL EXAM: VITAL SIGNS: Reviewed GENERAL: Well-developed in no acute distress. HEENT: No sclera icterus. Extraocular movements grossly intact. Moist buccal mucosa. Head is atraumatic, normocephalic. Hears conversational speech. No nasal drainage. NECK: Supple without lymphadenopathy. CHEST: Non-labored respirations and equal bilateral excursions. CARDIOVASCULAR: Palpable 2+ radial pulses. ABDOMEN: Soft. Nondistended. Bilateral inguinal hernia is reduced. Nontender MUSCULOSKELETAL: No clubbing or cyanosis. NEUROLOGIC: No focal or lateralizing signs. Cranial nerves II through XII grossly intact. PSYCH: Appropriate affect. Alert and oriented to person, place and time. SKIN: Well perfused. Good skin turgor. ASSESSMENT: 1. Recurrent bilateral inguinal hernia 2. Symptomatic left groin pain 3. Acute COPD exacerbation 4. Chronic aortic dissection 5. History of aortic aneurysm status post stent 6. Chronic kidney disease PLAN: -Patient is scheduled for Robotic bilateral inguinal hernia repair on 06/03/[address] Roberts if patient is medically optimized -Continue to medically optimize patient -Surgery can be done at a later date if patient is to be discharged and to continue to be medically optimize outpatient -Continue heart healthy diet Physician Solvent Plant Treater note has been reviewed by physician. Signing provider agrees with the documented findings, assessment, and plan of care. Objective - Vital Signs Vital signs: Vital Signs Temp 98 F 06/01/23 08:55 Pulse 78 06/01/23 11:45 Resp 18 06/01/23 11:35 BP 144/68 06/01/23 11:35 Pulse Ox 100 06/01/23 11:35 FiO2 Intake & Output 05/31/23 06/01/23 06/01/23 18:59 06:59 18:59 Intake Total 1080 420 Output Total 150 Balance 930 420 Weight 53.1 kg Intake: Oral 1080 420 Output: Urine 150 Other: Voiding Method External Catheter External Catheter External Catheter # Voids 1 1 # Bowel Movements 1 - Labs CBC & Chem 7: 05/30/23 08:07 05/30/23 08:07
--- NOTE | 2023-06-01 17:59 | P.PN ---
Subjective Progress Note Date: 06/01/23 This is a 78-year-old male patient with known history of advanced COPD maintained on Symbicort and Combivent on outpatient basis and the patient has home O2 has been on oxygen for the past 6 months. His baseline FEV1 is in order of 20% of predicted. The patient also has issues with inguinal hernia. The patient underwent repair of inguinal hernia back in 12/09/2022. He presented to the hospital because of abdominal pain. CAT scan of the abdomen and pelvis was done on 05/28/2023 and it showed a left inguinal hernia containing portions of the redundant sigmoid colon and scattered colonic diverticuli. There is also some limited airspace disease involving the left lung base along with advanced and severe emphysematous changes bilaterally and there is also a chronically noted aortic dissection in the inferior aspect of the intrathoracic aorta just behind the previously inserted aortic stent graft and this dissection extends to the level of bifurcation. The patient is having bowel movements. In fact he was having some loose liquidy diarrhea. His white cell count was 27 at time of admission dropped down to 17.4. Hemoglobin 11.3 and the platelet count is 176. He has chronic kidney disease with a BUN of 44 and creatinine 1.6 and his sodium level is at 138 with a potassium level of 4.6. No fever. Currently is on 1 and half liters of oxygen by nasal cannula with a pulse ox of 99%. The chest x-ray is not showing any acute abnormalities. There are some interstitial density in the left lung base. The patient is currently on bronchodilators and steroids as the patient is also having increased dyspnea and he does have some signs of COPD exacerbation. No nausea. No emesis. No altered mentation. On today's evaluation of 05/31/2023, I am seeing the patient for a follow-up. The patient has advanced COPD maintained on Symbicort and Combivent on outpatient basis. The patient also has had difficulty with a incarcerated left inguinal hernia. The plan is to proceed with surgery and surgery has been tentatively planned to be done on 06/02/2023. Clinically the patient is feeling better. Less short of breath. Responding to the combination of bronchodilators and steroids. The patient is currently on IV Solu-Medrol 40 mg every 12 hours. He is also on DuoNeb updrafts and Symbicort. He is using the incentive spirometer. No fever or chills. No significant sputum production. No chest pain. No new labs are available from today. The viral screen was negative. On today's evaluation of 06/01/2023, the patient is feeling stable and he has no new complaints. No interval worsening shortness of breath. No interval worsening of abdominal pain. He is stooling. He is scheduled to undergo a repair of an incarcerated hernia within the next 24 to 48 hours. Remains on D uoNeb updrafts, Symbicort as maintenance and IV Solu-Medrol. He is currently on 40 mg of IV Solu-Medrol every 12 hours. No new labs are available from today. Oxygenation remained stable and the patient is currently on 1.5 L with a pulse ox of 98%. He is using incentive spirometer. Objective - Vital Signs Vital signs: Vital Signs Temp 98.3 F 06/01/23 04:00 Pulse 82 06/01/23 08:33 Resp 16 06/01/23 04:00 BP 146/72 06/01/23 04:00 Pulse Ox 99 06/01/23 08:20 FiO2 Intake & Output 05/31/23 06/01/23 06/01/23 18:59 06:59 18:59 Intake Total 1080 Output Total 150 Balance 930 Intake: Oral 1080 Output: Urine 150 Other: Voiding Method External Catheter External Catheter # Voids 1 - Exam GENERAL EXAM: Alert, 78-year-old white male, comfortable in no apparent distress. Walker at bedside. The patient is currently on 1.5 L of oxygen by nasal cannula pulse ox of 99% HEAD: Normocephalic and atraumatic EYES: Normal reaction of pupils, equal size. NOSE: Clear with pink turbinates. THROAT: No erythema or exudates. NECK: No masses, no JVD. CHEST: No chest wall deformity. LUNGS: Equal air entry with end expiratory wheezes with forced expiratory maneuver. No crackles, rhonchi, or focal dullness. Breath sounds are marked diminished bilaterally. No conversational dyspnea or accessory muscle use while at rest.. CVS: S1 and S2 normal with no audible murmur, regular rhythm. No extra heart sounds ABDOMEN: No hepatosplenomegaly, active bowel sounds, no guarding or rigidity. SPINE: No scoliosis or deformity SKIN: No rashes CENTRAL NERVOUS SYSTEM: No focal deficits, tone is normal in all 4 extremities. EXTREMITIES: There is no peripheral edema, clubbing, or cyanosis. Peripheral pulses are intact. - Labs CBC & Chem 7: 05/30/23 08:07 05/30/23 08:07 Assessment and Plan Plan: Acute on chronic dyspnea part today to his COPD. At the same time the patient has an incarcerated left inguinal hernia with secondary abdominal pain. The patient is awaiting surgery. Overall pulmonary status is stable. Oxygenation is also stable. Chronic hypoxic respiratory failure the patient is currently on 1.5 L of O2 nasal cannula Incarcerated left inguinal hernia with secondary abdominal pain. The patient has no signs of any bowel obstruction. Still having bowel movements on a regular basis. General surgery is on the case, Clinically stable awaiting surgery to be done on 06/02/2023 Possible acute gastroenteritis/diarrhea History of bilateral incarcerated inguinal hernia repairs 12/09/2022 Acute leukocytosis, improving Acute exacerbation of COPD, with secondary shortness of breath Chronic obstructive pulmonary disease, with a FEV1 of 20% of pred, and the patient is on Symbicort and combivent and he has been on 02 at 1 liters/min History of greater than 50 years smoking, quit March 2022 Chronic kidney disease stage III History of neurogenic bladder History of thoracic aortic aneurysm/aortic valve repair at [facility] May 2018, and the patient has chronic dissection in the aorta bel ow the Endo vascular stent graft extending to the level of the bifurcation of the aorta. Hypertension Hyperlipidemia History of depression Plan: Respiratory status is more stable compared to yesterday as the patient is being treated with a combination of bronchodilators and steroids. Will continue same treatment for now. Encourage use of incentive spirometer Agree on DuoNeb nebulized treatments [id number] Continue Symbicort IV Solu-Medrol 40 mg every 12 hours and this will be continued the same dose Patient negative for influenza, RSV, COVID General surgery consultation regarding this inguinal hernia, surgery to be done on 06/02/2023 Monitor the renal function Patient has chronic stable aortic dissection He is considered to be high risk for developing postoperative pulmonary complication should there be any need for any form of surgery including general surgery for an incarcerated left inguinal hernia. This entails respiratory failure, requiring intubation mechanical ventilation. The patient was made aware. This will be further discussed with general surgery. Cardiology consultation Vascular surgery consultation is appreciated Encourage incentive spirometer Will collaborate care with general surgery Will continue to follow Prognosis in general poor secondary above-mentioned comorbidities.
--- NOTE | 2023-06-02 05:43 | P.PN ---
Subjective Progress Note Date: 06/01/23 HISTORY OF PRESENT ILLNESS: History of present illness; patient 78-year-old male patient with a history of chronic obstructive pulmonary disease, former smoker, daily alcohol use, gastroesophageal reflux disease, hypertension, hyperlipidemia, neuromuscular dysfunction and the bladder,, previous thoracic aortic aneurysm repair for aortic valve repair, chronic aortic dissection who presented to the ER for abdominal pain. Stated he was all right yesterday when after eating [place] food he started having abdominal pain. Abdominal pain was initially generalized but later on progressed to involve the left lower quadrant. Patient also having profuse diarrhea, stools were watery in consistency, no blood in it. There was complaint of nausea and vomiting. Denied any fever but was complaining of chills. There was no complaint of orthopnea or PND. There was no cough no nyla st pain or shortness of breath. Patient thinks all this is secondary to him eating tacos and does not think they are most hygienic. Because abdominal pain, patient came to the ER. CT abdominal pelvis done showed redemonstration of aortic dissection extending from the inferior aspect of the intrathoracic stent graft to the aortic bifurcation. Left lower lung opacities correlate for pneumonia. Left inguinal hernia containing portion of redundant sigmoid colon. Patient was seen general surgery despite having this hernia repair 6 months ago looks like there is a relapse hernia need to be repaired. The patient is hemodynamically stable at this point with history of mild COPD, mild congestive heart failure and history of EtOH. Patient will be stabilized and probably eventually go for surgery. 05-30-2023: Patient is feeling slightly better continue having slight pain and discomfort consult pulmonary review cardiovascular testing patient seen cardiology see when was the last echocardiogram plan for clearance and getting patient ready probably for surgery. 05-31-2023: Patient is feeling better, significantly decreasing abdominal pain and discomfort. He was seen and evaluated by vascular, cardiology, and pulmonary try to optimize his medical management and the plan is to go for robo tic bilateral hernia repair again on 06-02-2023. Will review his labs today, increase physical activity with physical therapy, awaiting for surgery in the next 48 hours. Patient in the meanwhile stable doing well. The exception of his slight decline in kidney function with creatinine is up to 1.60 his white blood cell is down 17.4, blood sugar still mildly elevated being managed currently. Pulmonary dejesus with his FEV1 only 20 percentile patient was started on Solu-Medrol 40 mg every 12 hours given the the possibility that patient might require mechanical ventilation with surgery the patient is aware if it is willing to. The details of his aneurysm repair at [facility] years ago that he had stable dissection does not require any attention at this point just to monitor his blood pressure and keep it under control. On last at least Cardiology are aware of patient comorbidity his echocardiogram is recent did not require any repeat echo at this point just to maximize his medical management and he will be ready for surgery. 06-01-2023: Patient is doing well he is ready for surgery tomorrowWas cleared by vascular, pulmonary and cardiology. His ability to do anything physical is very limited at this point patient is extremely out of breath with minimal exertion. He has got worse on physical therapy and Occupational Therapy afterward. He still having significant pain discomfort in the groin area and lower abdominal region area which make it not easy for patient to leave the hospital and to come back within a week for the surgery because out of incarceration is very high at this point. REVIEW OF SYSTEMS: CONSTITUTIONAL: Very thin and looks malnourished in no respiratory distress EYES: No icterus sclerae, no conjunctivitis. EARS, NOSE, MOUTH, THROAT, and FACE: No sore throat, lymphadenopathy, carotid bruits or deformity. RESPIRATORY: Mild shortness of cough and wheezes. CARDIOVASCULAR: History of mild congestive heart failure no chest pain or angina PND orthopnea or palpitation. GASTROINTESTINAL: Positive abdominal pain with nausea no vomiting still having stool. GENITOURINARY: Negative for Hematuria or UTI, no kidney stones. INTEGUMENT/BREAST: Negative for any muscular injury with mild osteoarthritis.. HEMATOLOGIC/LYMPHATIC: Negative for bleed or purpura. MUSCULOSKELTAL: Negative for Myalgia or arthralgia. NEURLOGICAL: No LOC, Sz or syncope, blurred vision dizziness or abnormality.. BEHAVIORAL/PSYCH: Negative. ENDOCRINE: Negative. PHYSICAL EXAMINATION: General Appearance: Alert, cooperative, no distress, looks older than his age and quite thin and malnourished. Neck HEENT: Supple, no lymphadenopathy, no thyroid enlargement, no carotid bruits. Lungs: Decreased breath sound bilaterally with rhonchi positive mild expiratory wheezes. Chest Wall: Decreased expansion with deep inspiration no tenderness and no deformity was found on exam, no costochondral pain or discomfort. Heart: Regular rate and rhythm, S1, S2 normal, no murmur, rub or gallop. Back: Symmetric, no curvature, ROM normal, no CVA tenderness. Abdomen: Significant tenderness and discomfort lower abdominal region area mostly on the left side with no rebound or rigidity. Extremities: Extremities normal, atraumatic, no cyanosis or edema. Pulses: 2+ and symmetric. Skin: Skin color, texture, tugor normal, no rashes or lesions. Neurologic: Alert oriented x3 cranial nerves II through XII intact, no motor deficit, no abnormal balance or gait. ASSESSMENT AND PLAN: _Severe abdominal pain: Bilateral relapse hernia repair from few months ago he will be required to go for another surgery. For bilateral robotic repair. _Severe COPD: Remain on DuoNeb and Pulmicort still on Solu-Medrol 40 mg every 12 hours pulmonary consultation continue O2 titrate To keep pulse ox above 92%. His FEV1 is 20 percentile patient might require mechanical ventilation after surgery. _ Mild congestive heart failure: Has been on spironolactone, lisinopril, met oprolol and furosemide resume medication will consult cardiology review last echocardiogram see if patient need to have any further testing before surgery. - Chronic kidney disease stage III with acute kidney injury, continue hydration lower any nephrotoxic agent at this point. Repeat kidney function with labs tomorrow. - Leukocytosis: Mild clear etiology could be the severity of the inflamed area around the hernia patient should be on antibiotics to cover it also repeat culture. Having to be on steroids to make his leukocytosis slightly bit worse. This is still can be from chronic steroid use. - Anemia: Mostly iron deficiency will look for any acute bleed continue pantoprazole for GI prophylaxis watch for any decline in hemoglobin in the next 24 hours. No decline in hemoglobin still very stable. - BPH: No sign of any urinary retention continue Flomax. - GI prophylaxis: Patient be on pantoprazole. - DVT prophylaxis: Knee-high LUDA hose and Venodyne boots no anticoagulation at this point. Planning: Patient remain in the hospital will have the surgery hopefully in the next 24 hours and be able to be discharged afterward he might require more attention with either home care or SNF afterward. Objective - Vital Signs Vital signs: Vital Signs Temp 98.1 F 06/01/23 00:00 Pulse 79 06/01/23 02:00 Resp 16 06/01/23 02:00 BP 181/80 06/01/23 00:00 Pulse Ox 97 06/01/23 00:00 FiO2 Intake & Output 05/31/23 05/31/23 06/01/23 06:59 18:59 06:59 Intake Total 10 1080 Output Total 150 Balance 10 930 Intake: IV 10 Invasive Line 1 10 Oral 1080 Output: Urine 150 Other: Voiding Method Bedside Commode External Catheter External Catheter Diaper # Voids 2 1 - Labs CBC & Chem 7: 05/30/23 08:07 05/30/23 08:07
[2023-06-02 06:35] LABS: Basophils % (A) 0 %; Eosinophils % (A) 0 %; HGB 11.8 gm/dL (13.0-17.5); Hypochromasia Slight; Lymphocytes % (A) 8 %; MCH 28.4 pg (25.0-35.0); MCV 88.8 fL (80.0-100.0); Monocytes # (A) 0.6 k/uL (0-1.0); Monocytes % (A) 5 %; Neutrophils # (A) 10.2 k/uL (1.3-7.7); Neutrophils % (A) 85 %; Platelet Count 178 k/uL (150-450); RBC 4.17 m/uL (4.30-5.90); RDW 15.7 % (11.5-15.5)
[2023-06-02 06:57] LABS: ALT 44 U/L (4-49); AST 32 U/L (17-59); African American GFR (CKD) 53 (>60 ml/min/1.73 sqM); Albumin 3.2 g/dL (3.5-5.0); Alkaline Phosphatase 72 U/L (38-126); Anion Gap 3 mmol/L; Blood Urea Nitrogen 51 mg/dL (9-20); Calcium 8.6 mg/dL (8.4-10.2); Carbon Dioxide 34 mmol/L (22-30); Chloride 100 mmol/L (98-107); Glucose 118 mg/dL (74-99); Non-African American GFR(CKD) 45 (>60 ml/min/1.73 sqM); Potassium 4.5 mmol/L (3.5-5.1); Sodium 137 mmol/L (137-145); Total Bilirubin 0.4 mg/dL (0.2-1.3); Total Protein 5.8 g/dL (6.3-8.2)
--- NOTE | 2023-06-02 13:14 | P.PN ---
Subjective Progress Note Date: 06/02/23 History of present illness: This is a 78-year-old male patient of Dr. Josi Schofield with past medical history of chronic hypoxic respiratory failure on home O2 at 1 L nasal cannula, aortic dissection status postrepair at [facility] in 2019, thrombosis of subclavian artery, hypertension, dyslipidemia, remote history of tobacco use and dependence, COPD, benign prostatic hypertrophy, chronic kidney disease stage III. We have been asked to evaluate the patient for cardiac risk assessment. Patient presented to the hospital due to abdominal pain was diagnosed by general surgery to have a left inguinal hernia that needs to be redone. Patient is having significant difficulty in breathing secondary to COPD exacerbation. Stat nebulizer treatment ordered. Chest x-ray performed this morning reveals COPD. Mild interstitial density in the lower lungs could reflect bronchitis or subtle interstitial infiltrates or atypical pneumonia. Early pulmonary vascular congestion is also possible. CT of the abdomen pelvis revealed aortic dissection extending from the inferior aspect of the intrathoracic stent graft to the aortic bifurcation. Major vessels of the abdominal aorta originate off the true lumen. Left lower lung airspace opacities correlate for pneumonia. Left inguinal hernia containing portions of redundant sigmoid colon. Scattered colonic diverticula. Moderate to severe emphysema changes in the lung bases. WBC 17.4, hemoglobin 11.3, platelet count 176. Electrolytes normal. BUN 44 creatinine 1.6. Blood sugar 165. Liver function test are normal. Influenza A, influenza B, COVID-19, RSV not detected. Home cardiac medications: Aspirin 81 mg daily, Lasix 30 mg daily, lisinopril 10 mg daily, magnesium oxide 500 mg daily, Toprol-XL 25 mg daily, potassium chloride 20 mg twice daily, Aldactone 25 mg daily. Echocardiogram performed 12/07/2022 reveals EF 55%, grade 1 diastolic dysfunction. Moderate to severe tricuspid regurgitation. 05/31 Patient's breathing is better but he continues to have wheezing. He is tentatively scheduled for inguinal hernia surgery on . Blood pressure 148/54, heart rate in the 80s and 90s, pulse ox 97% on 1 and half liters nasal cannula 06/01 Patient remains in sinus rhythm, heart rate 80-102, blood pressure 105/63, pulse ox 97% on 1/2 L nasal cannula. Lab work is been ordered for tomorrow. Patient's surgery date has been postponed to Tuesday. Patient's respiratory status appears more stable. He states his shortness of breath is improving. No lower extremity edema. Heart rate is running between 80-101, blood pressure 131/75. Patient's breathing status continues to improve slowly. He is scheduled for inguinal hernia repair tomorrow. Blood pressure 137/68, heart rate in the 70s and 80s, pulse ox 90% on 1/2 L nasal cannula. Repeat blood work reveals hemoglobin of 11.8, WBC 12. Potassium 4.5, BUN 51 creatinine 1.48. Physical examination: Gen: This is a 78-year-old male. VS: reviewed HEENT: Head is atraumatic, normocephalic. Pupils equal, round. Sclerae is anicteric. LUNGS: Mild wheezing bilaterally. HEART: Regular rate and rhythm. No murmur. ABDOMEN: Soft No tenderness. EXTREMITIES: No pedal edema. No calf tenderness. NEUROLOGICAL: Patient is awake, alert and oriented x3. Assessment: Incarcerated left inguinal hernia scheduled for surgery on Tuesday Acute exacerbation of COPD Acute on chronic hypoxic respiratory failure Leukocytosis most likely secondary to steroids as an outpatient History of aortic dissection status postrepair Thrombosis of subclavian artery Hypertension Hyperlipidemia Chronic kidney disease stage III Plan: Continue patient's home cardiac medications No need to repeat echocardiogram Further recommendations to follow based upon clinical course Nurse practitioner note has been reviewed, I agree with documented findings and plan of care. Patient was seen and examined. Objective - Vital Signs Vital signs: Vital Signs Temp 98.3 F 06/01/23 19:49 Pulse 76 06/02/23 08:26 Resp 18 06/02/23 04:00 BP 157/80 06/02/23 04:00 Pulse Ox 98 06/02/23 08:18 FiO2 Intake & Output 06/01/23 06/02/23 06/02/23 18:59 06:59 18:59 Intake Total 600 240 Output Total 700 1000 Balance -100 -1000 240 Weight 53.1 kg Intake: Oral 600 240 Output: Urine 700 1000 Other: Voiding Method External Catheter External Catheter # Voids 1 # Bowel Movements 1 - Labs CBC & Chem 7: 06/02/23 06:01 06/02/23 06:01 Labs: Abnormal Lab Results - Last 24 Hours (Table) 06/02/23 06/02/23 Range/Units 06:01 06:01 WBC 12.0 H (3.8-10.6) k/uL RBC 4.17 L (4.30-5.90) m/uL Hgb 11.8 L (13.0-17.5) gm/dL Hct 37.0 L (39.0-53.0) % RDW 15.7 H (11.5-15.5) % Neutrophils # 10.2 H (1.3-7.7) k/uL Carbon Dioxide 34 H (22-30) mmol/L BUN 51 H (9-20) mg/dL Creatinine 1.48 H (0.66-1.25) mg/dL Glucose 118 H (74-99) mg/dL Total Protein 5.8 L (6.3-8.2) g/dL Albumin 3.2 L (3.5-5.0) g/dL
--- NOTE | 2023-06-02 13:22 | P.PN ---
Subjective Progress Note Date: 06/02/23 CHIEF COMPLAINT: Left lower quadrant abdominal pain HISTORY OF PRESENT ILLNESS: Patient with recurrent left inguinal hernia with a left groin pain. Patient denies any pain at this time. He did have a bowel movement. Denies any nausea or vomiting. Afebrile. White count is down from 17-12. Patient reports his breathing is at baseline. He is sitting up at bedside chair. He is on 1.5 L of oxygen. Followed by pulmonary service. PHYSICAL EXAM: VITAL SIGNS: Reviewed GENERAL: Well-developed in no acute distress. HEENT: No sclera icterus. Extraocular movements grossly intact. Moist buccal mucosa. Head is atraumatic, normocephalic. Hears conversational speech. No nasal drainage. NECK: Supple without lymphadenopathy. CHEST: Non-labored respirations and equal bilateral excursions. CARDIOVASCULAR: Palpable 2+ radial pulses. ABDOMEN: Soft. Nondistended. Bilateral inguinal hernia is reduced. Nontender MUSCULOSKELETAL: No clubbing or cyanosis. NEUROLOGIC: No focal or lateralizing signs. Cranial nerves II through XII grossly intact. PSYCH: Appropriate affect. Alert and oriented to person, place and time. SKIN: Well perfused. Good skin turgor. ASSESSMENT: 1. Recurrent bilateral inguinal hernia 2. Symptomatic left groin pain 3. Acute COPD exacerbation 4. Chronic aortic dissection 5. History of aortic aneurysm status post stent 6. Chronic kidney disease PLAN: -Patient is scheduled for Robotic bilateral inguinal hernia repair on 06/03/[address] Roberts if patient is medically optimized -Continue to medically optimize patient -N.p.o. after midnight Physician Bleach Boiler Puller note has been reviewed by physician. Signing provider agrees with the documented findings, assessment, and plan of care. Objective - Vital Signs Vital signs: Vital Signs Temp 98 F 06/02/23 08:30 Pulse 83 06/02/23 11:40 Resp 18 06/02/23 11:40 BP 137/68 06/02/23 11:40 Pulse Ox 98 06/02/23 11:40 FiO2 Intake & Output 06/01/23 06/02/23 06/02/23 18:59 06:59 18:59 Intake Total 600 240 Output Total 700 1000 Balance -100 -1000 240 Weight 53.1 kg Intake: Oral 600 240 Output: Urine 700 1000 Other: Voiding Method External Catheter External Catheter External Catheter # Voids 1 # Bowel Movements 1 - Labs CBC & Chem 7: 06/02/23 06:01 06/02/23 06:01 Labs: Abnormal Lab Results - Last 24 Hours (Table) 06/02/23 06/02/23 Range/Units 06:01 06:01 WBC 12.0 H (3.8-10.6) k/uL RBC 4.17 L (4.30-5.90) m/uL Hgb 11.8 L (13.0-17.5) gm/dL Hct 37.0 L (39.0-53.0) % RDW 15.7 H (11.5-15.5) % Neutrophils # 10.2 H (1.3-7.7) k/uL Carbon Dioxide 34 H (22-30) mmol/L BUN 51 H (9-20) mg/dL Creatinine 1.48 H (0.66-1.25) mg/dL Glucose 118 H (74-99) mg/dL Total Protein 5.8 L (6.3-8.2) g/dL Albumin 3.2 L (3.5-5.0) g/dL
--- NOTE | 2023-06-02 15:33 | P.PN ---
Subjective Progress Note Date: 06/02/23 This is a 78-year-old male patient with known history of advanced COPD maintained on Symbicort and Combivent on outpatient basis and the patient has home O2 has been on oxygen for the past 6 months. His baseline FEV1 is in order of 20% of predicted. The patient also has issues with inguinal hernia. The patient underwent repair of inguinal hernia back in 12/09/2022. He presented to the hospital because of abdominal pain. CAT scan of the abdomen and pelvis was done on 05/28/2023 and it showed a left inguinal hernia containing portions of the redundant sigmoid colon and scattered colonic diverticuli. There is also some limited airspace disease involving the left lung base along with advanced and severe emphysematous changes bilaterally and there is also a chronically noted aortic dissection in the inferior aspect of the intrathoracic aorta just behind the previously inserted aortic stent graft and this dissection extends to the level of bifurcation. The patient is having bowel movements. In fact he was having some loose liquidy diarrhea. His white cell count was 27 at time of admission dropped down to 17.4. Hemoglobin 11.3 and the platelet count is 176. He has chronic kidney disease with a BUN of 44 and creatinine 1.6 and his sodium level is at 138 with a potassium level of 4.6. No fever. Currently is on 1 and half liters of oxygen by nasal cannula with a pulse ox of 99%. The chest x-ray is not showing any acute abnormalities. There are some interstitial density in the left lung base. The patient is currently on bronchodilators and steroids as the patient is also having increased dyspnea and he does have some signs of COPD exacerbation. No nausea. No emesis. No altered mentation. On today's evaluation of 05/31/2023, I am seeing the patient for a follow-up. The patient has advanced COPD maintained on Symbicort and Combivent on outpatient basis. The patient also has had difficulty with a incarcerated left inguinal hernia. The plan is to proceed with surgery and surgery has been tentatively planned to be done on 06/02/2023. Clinically the patient is feeling better. Less short of breath. Responding to the combination of bronchodilators and steroids. The patient is currently on IV Solu-Medrol 40 mg every 12 hours. He is also on DuoNeb updrafts and Symbicort. He is using the incentive spirometer. No fever or chills. No significant sputum production. No chest pain. No new labs are available from today. The viral screen was negative. On today's evaluation of 06/01/2023, the patient is feeling stable and he has no new complaints. No interval worsening shortness of breath. No interval worsening of abdominal pain. He is stooling. He is scheduled to undergo a repair of an incarcerated hernia within the next 24 to 48 hours. Remains on D uoNeb updrafts, Symbicort as maintenance and IV Solu-Medrol. He is currently on 40 mg of IV Solu-Medrol every 12 hours. No new labs are available from today. Oxygenation remained stable and the patient is currently on 1.5 L with a pulse ox of 98%. He is using incentive spirometer. On 06/02/2023, the patient is stable. No interval worsening shortness of breath. Remains on IV Solu-Medrol. Remains on Symbicort. Remains on DuoNeb. Using incentive spirometer. The plan is to proceed with repair of a inguinal hernia and this will be done by general surgery tomorrow. Remains on normal citrate at 50 cc an hour. The blood work was reviewed. The white cell count is down to 12 with a hemoglobin of 11 and a platelet count of 178. BUN is 51 with a creatinine of 1.4 and sodium levels at 137. At this point, the patient is on 1.5 L of O2 nasal cannula with a pulse ox of 98%. Objective - Vital Signs Vital signs: Vital Signs Temp 98 F 06/02/23 08:30 Pulse 91 06/02/23 08:30 Resp 17 06/02/23 08:30 BP 131/75 06/02/23 08:30 Pulse Ox 98 06/02/23 08:30 FiO2 Intake & Output 06/01/23 06/02/23 06/02/23 18:59 06:59 18:59 Intake Total 600 240 Output Total 700 1000 Balance -100 -1000 240 Weight 53.1 kg Intake: Oral 600 240 Output: Urine 700 1000 Other: Voiding Method External Catheter External Catheter External Catheter # Voids 1 # Bowel Movements 1 - Exam GENERAL EXAM: Alert, 78-year-old white male, comfortable in no apparent distress. Walker at bedside. The patient is currently on 1.5 L of oxygen by nasal cannula pulse ox of 99% HEAD: Normocephalic and atraumatic EYES: Normal reaction of pupils, equal size. NOSE: Clear with pink turbinates. THROAT: No erythema or exudates. NECK: No masses, no JVD. CHEST: No chest wall deformity. LUNGS: Equal air entry with end expiratory wheezes with forced expiratory maneuver. No crackles, rhonchi, or focal dullness. Breath sounds are marked diminished bilaterally. No conversational dyspnea or accessory muscle use while at rest.. CVS: S1 and S2 normal with no audible murmur, regular rhythm. No extra heart sounds ABDOMEN: No hepatosplenomegaly, active bowel sounds, no guarding or rigidity. SPINE: No scoliosis or deformity SKIN: No rashes CENTRAL NERVOUS SYSTEM: No focal deficits, tone is normal in all 4 extremities. EXTREMITIES: There is no peripheral edema, clubbing, or cyanosis. Peripheral pulses are intact. - Labs CBC & Chem 7: 06/02/23 06:01 06/02/23 06:01 Labs: Abnormal Lab Results - Last 24 Hours (Table) 06/02/23 06/02/23 Range/Units 06:01 06:01 WBC 12.0 H (3.8-10.6) k/uL RBC 4.17 L (4.30-5.90) m/uL Hgb 11.8 L (13.0-17.5) gm/dL Hct 37.0 L (39.0-53.0) % RDW 15.7 H (11.5-15.5) % Neutrophils # 10.2 H (1.3-7.7) k/uL Carbon Dioxide 34 H (22-30) mmol/L BUN 51 H (9-20) mg/dL Creatinine 1.48 H (0.66-1.25) mg/dL Glucose 118 H (74-99) mg/dL Total Protein 5.8 L (6.3-8.2) g/dL Albumin 3.2 L (3.5-5.0) g/dL Assessment and Plan Plan: Acute on chronic dyspnea part today to his COPD. At the same time the patient has an incarcerated left inguinal hernia with secondary abdominal pain. The patient is awaiting surgery. Overall pulmonary status is stable. Oxygenation is also stable. Chronic hypoxic respiratory failure the patient is currently on 1.5 L of O2 nasal cannula Incarcerated left inguinal hernia with secondary abdominal pain. The patient has no signs of any bowel obstruction. Still having bowel movements on a regular basis. General surgery is on the case, Clinically stable awaiting surgery to be done on 06/03/2023 Possible acute gastroenteritis/diarrhea History of bilateral incarcerated inguinal hernia repairs 12/09/2022 Acute leukocytosis, improving Acute exacerbation of COPD, with secondary shortness of breath Chronic obstructive pulmonary disease, with a FEV1 of 20% of pred, and the patient is on Symbicort and combivent and he has been on 02 at 1.5 liters/min History of greater than 50 years smoking, quit March 2022 Chronic kidney disease stage III History of neurogenic bladder History of thoracic aortic aneurysm/aortic valve repair at [facility] May 2018, and the patient has chronic dissection in the aorta below the Endo vascular stent graft extending to the level of the bifurcation of the aorta. Hypertension Hyperlipidemia History of depression Plan: Remains stable and the patient is undergoing surgery on 06/03/2023 Respiratory status is stable Encourage use of incentive spirometer Agree on DuoNeb nebulized treatments [id number] Continue Symbicort IV Solu-Medrol 40 mg every 12 hours and this will be continued the same dose Patient negative for influenza, RSV, COVID General surgery consultation regarding this inguinal hernia, surgery to be done on 06/03/2023 Monitor the renal function Patient has chronic stable aortic dissection He is considered to be high risk for developing postoperative pulmonary complication should there be any need for any form of surgery including general surgery for an incarcerated left inguinal hernia. This entails respiratory failure, requiring intubation mechanical ventilation. The patient was made aware. This will be further discussed with general surgery. Note that his overall pulmonary status has been optimized over the past 24 to 48 hours and his condition is stable. He may need close monitoring postop. There are still ongoing risk for postoperative pulmonary complications despite his respite statu s being further optimized. He does have advanced lung disease. Cardiology consultation Vascular surgery consultation is appreciated Encourage incentive spirometer Will collaborate care with general surgery Will continue to follow Prognosis in general poor secondary above-mentioned comorbidities.
--- NOTE | 2023-06-03 05:30 | P.PN ---
Subjective Progress Note Date: 06/02/23 HISTORY OF PRESENT ILLNESS: History of present illness; patient 78-year-old male patient with a history of chronic obstructive pulmonary disease, former smoker, daily alcohol use, gastroesophageal reflux disease, hypertension, hyperlipidemia, neuromuscular dysfunction and the bladder,, previous thoracic aortic aneurysm repair for aortic valve repair, chronic aortic dissection who presented to the ER for abdominal pain. Stated he was all right yesterday when after eating [place] food he started having abdominal pain. Abdominal pain was initially generalized but later on progressed to involve the left lower quadrant. Patient also having profuse diarrhea, stools were watery in consistency, no blood in it. There was complaint of nausea and vomiting. Denied any fever but was complaining of chills. There was no complaint of orthopnea or PND. There was no cough no nyla st pain or shortness of breath. Patient thinks all this is secondary to him eating tacos and does not think they are most hygienic. Because abdominal pain, patient came to the ER. CT abdominal pelvis done showed redemonstration of aortic dissection extending from the inferior aspect of the intrathoracic stent graft to the aortic bifurcation. Left lower lung opacities correlate for pneumonia. Left inguinal hernia containing portion of redundant sigmoid colon. Patient was seen general surgery despite having this hernia repair 6 months ago looks like there is a relapse hernia need to be repaired. The patient is hemodynamically stable at this point with history of mild COPD, mild congestive heart failure and history of EtOH. Patient will be stabilized and probably eventually go for surgery. 05-30-2023: Patient is feeling slightly better continue having slight pain and discomfort consult pulmonary review cardiovascular testing patient seen cardiology see when was the last echocardiogram plan for clearance and getting patient ready probably for surgery. 05-31-2023: Patient is feeling better, significantly decreasing abdominal pain and discomfort. He was seen and evaluated by vascular, cardiology, and pulmonary try to optimize his medical management and the plan is to go for robo tic bilateral hernia repair again on 06-02-2023. Will review his labs today, increase physical activity with physical therapy, awaiting for surgery in the next 48 hours. Patient in the meanwhile stable doing well. The exception of his slight decline in kidney function with creatinine is up to 1.60 his white blood cell is down 17.4, blood sugar still mildly elevated being managed currently. Pulmonary dejesus with his FEV1 only 20 percentile patient was started on Solu-Medrol 40 mg every 12 hours given the the possibility that patient might require mechanical ventilation with surgery the patient is aware if it is willing to. The details of his aneurysm repair at [facility] years ago that he had stable dissection does not require any attention at this point just to monitor his blood pressure and keep it under control. On last at least Cardiology are aware of patient comorbidity his echocardiogram is recent did not require any repeat echo at this point just to maximize his medical management and he will be ready for surgery. 06-01-2023: Patient is doing well he is ready for surgery tomorrowWas cleared by vascular, pulmonary and cardiology. His ability to do anything physical is very limited at this point patient is extremely out of breath with minimal exertion. He has got worse on physical therapy and Occupational Therapy afterward. He still having significant pain discomfort in the groin area and lower abdominal region area which make it not easy for patient to leave the hospital and to come back within a week for the surgery because out of incarceration is very high at this point. 06-02-2023: Patient is stable was post to have surgery today apparently scheduled for tomorrow first thing in the morning. He still seen by cardiology and pulmonary patient is very stable medically still on DuoNeb along with Medrol IV shortness of breath is improved to require 1.5 L of O2 to keep him at 97 percentile. Mobility still significantly decreased and patient required physical therapy shortly after surgery. Again has a plan to go for surgery testing tomorrow morning and patient is medically stable no need for any other testing or management before the surgery. Kidney function remains at stage III chronic kidney disease will continue hydration and watch his urine output. REVIEW OF SYSTEMS: CONSTITUTIONAL: Very thin and looks malnourished in no respiratory distress EYES: No icterus sclerae, no conjunctivitis. EARS, NOSE, MOUTH, THROAT, and FACE: No sore throat, lymphadenopathy, carotid bruits or deformity. RESPIRATORY: Mild shortness of cough and wheezes. CARDIOVASCULAR: History of mild congestive heart failure no chest pain or angina PND orthopnea or palpitation. GASTROINTESTINAL: Positive abdominal pain with nausea no vomiting still having stool. GENITOURINARY: Negative for Hematuria or UTI, no kidney stones. INTEGUMENT/BREAST: Negative for any muscular injury with mild osteoarthritis.. HEMATOLOGIC/LYMPHATIC: Negative for bleed or purpura. MUSCULOSKELTAL: Negative for Myalgia or arthralgia. NEURLOGICAL: No LOC, Sz or syncope, blurred vision dizziness or abnormality.. BEHAVIORAL/PSYCH: Negative. ENDOCRINE: Negative. PHYSICAL EXAMINATION: General Appearance: Alert, cooperative, no distress, looks older than his age and quite thin and malnourished. Neck HEENT: Supple, no lymphadenopathy, no thyroid enlargement, no carotid bruits. Lungs: Decreased breath sound bilaterally with rhonchi positive mild expiratory wheezes. Chest Wall: Decreased expansion with deep inspiration no tenderness and no deformity was found on exam, no costochondral pain or discomfort. Heart: Regular rate and rhythm, S1, S2 normal, no murmur, rub or gallop. Back: Symmetric, no curvature, ROM normal, no CVA tenderness. Abdomen: Significant tenderness and discomfort lower abdominal region area mostly on the left side with no rebound or rigidity. Extremities: Extremities normal, atraumatic, no cyanosis or edema. Pulses: 2+ and symmetric. Skin: Skin color, texture, tugor normal, no rashes or lesions. Neurologic: Alert oriented x3 cranial nerves II through XII intact, no motor deficit, no abnormal balance or gait. ASSESSMENT AND PLAN: _Severe abdominal pain: Bilateral relapse hernia repair from few months ago he will be required to go for another surgery. For bilateral robotic repair. _Severe COPD: Remain on DuoNeb and Pulmicort still on Solu-Medrol 40 mg every 12 hours pulmonary consultation continue O2 titrate To keep pulse ox above 92%. His FEV1 is 20 percentile patient might require mechanical ventilation after surgery. Pulmonary Daily the patient lung status has been to an analysis follow-up to go for surgery with all possibility of more complication patient potential of end up on the ventilator is very high. _ Mild congestive heart failure: Has been on spironolactone, lisinopril, metoprolol and furosemide resume medication will consult cardiology review last echocardiogram see if patient need to have any further testing before surgery. _ Chronic kidney disease stage III with acute kidney injury, continue hydration lower any nephrotoxic agent at this point. Repeat kidney function with labs tomorrow. Creatinine is up to 1.48 remained stable. _ Leukocytosis: White blood cell is much better so far is coming down repeat another 1 tomorrow. _ Anemia: Mostly iron deficiency will look for any acute bleed continue pantoprazole for GI prophylaxis watch for any decline in hemoglobin in the next 24 hours. No decline in hemoglobin still very stable. _ BPH: No sign of any urinary retention continue Flomax. _ GI prophylaxis: Patient be on pantoprazole. _ DVT prophylaxis: Knee-high LUDA hose and Venodyne boots no anticoagulation at this point. Planning: Apparently surgery will be done tomorrow following surgery patient physical therapy will be titrated gradually and see if patient can benefit from going to SNF for short period of time. Objective - Vital Signs Vital signs: Vital Signs Temp 98.3 F 06/01/23 19:49 Pulse 91 06/02/23 01:39 Resp 18 06/02/23 01:39 BP 169/83 06/02/23 00:00 Pulse Ox 99 06/02/23 00:00 FiO2 Intake & Output 06/01/23 06/01/23 06/02/23 06:59 18:59 06:59 Intake Total 600 Output Total 700 Balance -100 Weight 53.1 kg Intake: Oral 600 Output: Urine 700 Other: Voiding Method External Catheter External Catheter External Catheter # Voids 1 # Bowel Movements 1 - Labs CBC & Chem 7: 06/02/23 06:01 06/02/23 06:01
[2023-06-03] MEDS: IV FLUID CONTINUATION 900 ML IV ONE (06:05)
[2023-06-03] MEDS: LACTATED RINGERS 1,000 ML IV ONE ×3 (06:06→09:04)
[2023-06-03] MEDS ORDERED: ONDANSETRON 4 MG/2 ML VIAL ONE (06:08)
[2023-06-03 06:11] LABS: HGB 11.9 gm/dL (13.0-17.5); MCH 28.1 pg (25.0-35.0); MCHC 32.3 g/dL (31.0-37.0); MCV 87.2 fL (80.0-100.0); Mean Platelet Volume 9.2; Platelet Count 183 k/uL (150-450); RBC 4.25 m/uL (4.30-5.90); RDW 15.7 % (11.5-15.5); WBC 14.8 k/uL (3.8-10.6)
[2023-06-03 06:18] LABS: African American GFR (CKD) 50 (>60 ml/min/1.73 sqM); Anion Gap 1 mmol/L; Blood Urea Nitrogen 65 mg/dL (9-20); Calcium 8.4 mg/dL (8.4-10.2); Carbon Dioxide 36 mmol/L (22-30); Chloride 100 mmol/L (98-107); Glucose 123 mg/dL (74-99); Non-African American GFR(CKD) 44 (>60 ml/min/1.73 sqM); Potassium 4.7 mmol/L (3.5-5.1); Sodium 137 mmol/L (137-145)
[2023-06-03] MEDS: ONDANSETRON 4 MG/2 ML VIAL IVP ONE ×2 (06:28→10:57)
[2023-06-03] MEDS: DEXAMETHASONE SOD PHOSPHATE 4 MG/ML 1 ML VIAL IVP ONE (06:28)
[2023-06-03] MEDS: MIDAZOLAM 2 MG/2 ML VIAL IVP ONE (06:34)
[2023-06-03] MEDS: fentaNYL (PF) 50 MCG/1 ML VIAL IVP ONE (06:35)
[2023-06-03] MEDS: HEPARIN SODIUM,PORCINE 5,000 UNIT/ML 1 ML VIAL SQ PRN (06:52)
[2023-06-03] MEDS ORDERED: NEOSTIGMINE 1 MG/ML 10 ML VIAL ONE (06:56)
[2023-06-03] MEDS ORDERED: GLYCOPYRROLATE 0.2 MG/ML 2 ML VIAL ONE (06:56)
[2023-06-03] MEDS ORDERED: DEXAMETHASONE SOD PHOSPHATE 4 MG/ML 1 ML VIAL ONE (06:56)
[2023-06-03] MEDS ORDERED: ROPIVACAINE 5 MG/ML 30 ML VIAL ONE (06:56)
[2023-06-03] MEDS ORDERED: LIDOCAINE 1% INJ 10MG/ML (20 ML MDV) ONE (06:56)
[2023-06-03] MEDS ORDERED: fentaNYL (PF) 50 MCG/ML 2 ML AMP ONE (06:56)
[2023-06-03] MEDS ORDERED: PROPOFOL 10 MG/ML 20 ML VIAL IV ONE (06:56)
[2023-06-03] MEDS ORDERED: ROCURONIUM 10 MG/ML (5 ML VIAL) IV ONE (06:56)
[2023-06-03] MEDS ORDERED: ePHEDrine 50 MG/ML 1 ML VIAL ONE (06:56)
[2023-06-03] MEDS ORDERED: PHENYLEPHRINE 10 MG/ML VIAL ONE (06:56)
[2023-06-03] MEDS ORDERED: SUCCINYLCHOLINE CHLORIDE 200 MG/10 ML VIAL IV ONE (06:56)
[2023-06-03] MEDS ORDERED: SODIUM CHLORIDE 0.9% (PF) 10 ML VIAL ONE (06:56)
[2023-06-03] MEDS: SODIUM CHLORIDE 0.9% 100 ML with ceFAZolin 1,000 MG IV ONE (07:00)
--- NOTE | 2023-06-03 07:01 | P.HPADDEND ---
H&P Addendum H&P Addendum Date: 06/03/23 CHIEF COMPLAINT: Incarcerated left inguinal hernia with large bowel involvement HISTORY OF PRESENT ILLNESS: The patient is a 78 male who presents with [id number] left lower quadrant abdominal pain. He has personal history of emergent bilateral inguinal hernia repair over 6 months ago. Patient presented to the hospital with exacerbation of chronic obstructive pulmonary disease, pre-existing heart disease and worsening left lower quadrant abdominal pain. Since admission, patient reports improvement of his breathing. He has been evaluated by cardiology team including pulmonary team. ROS: No reports of nausea and vomiting. No fevers or chills. No new chest pain. PHYSICAL EXAM: VITAL SIGNS: Reviewed CONSTITUTIONAL: Well developed and in no acute distress. EYES: Conjuctivae without sclera icterus. Extraocular movements grossly intact. HEAD, EARS, NOSE, THROAT: Moist buccal mucosa. Head is atraumatic, normocephalic. Hears conversational speech. No nasal drainage. RESPIRATORY: Non-labored respirations and equal bilateral excursions. CARDIOVASCULAR: Palpable 2+ radial pulses. ABDOMEN: Tender left lower quadrant. Swelling along the groins. MUSCULOSKELETAL: No gross deformity of the lower extremities noted. No clubbing. No cyanosis. SKIN: Good skin turgor. Well perfused. NEUROLOGIC: Cranial nerves II through XII grossly intact. No focal or lateralizing signs. PSYCH: Appropriate affect. Alert and oriented to person, place and time. CLINICAL LABS: Reviewed. STUDIES: CT of the abdomen pelvis reviewed demonstrates incarcerated bowel of the left inguinal area including recurrent bilateral inguinal hernias. This is my independent interpretation. EKG: CARDIOLOGY: ASSESSMENT: 1. Chronic struct of pulmonary disease, moderate to severe 2. Recurrent bilateral inguinal hernias 3. Incarcerated left inguinal hernia involving large bowel PLAN: 1. Patient reports improvement of his breathing including exacerbation of chronic obstructive pulmonary disease. Patient has been optimized from a pulmonary standpoint. 2. Patient is aware that he is at elevated risk for prolonged intubation after surgery. 3. Patient optimized from a cardiac standpoint with cardiac risk assessment obtained. 4. Patient is overall moderate elevated risk for perioperative complications due to pre-existing cardiopulmonary disease. Due to incarcerated bowel of inguinal hernia, surgical intervention is advised. Patient agreeable to proceed with surgery. 5. Patient is full CODE STATUS during surgery. He will resume no CODE STATUS after surgery. Patient agreed with care plan.
[2023-06-03 07:11] LABS: Band Neutrophils % 1 %; Lymphocytes # (M) 2.07 k/uL (1.0-4.8); Metamyelocytes # (M) 0.15 k/uL (0); Metamyelocytes % 1 %; Monocytes # (M) 0.44 k/uL (0-1.0); Myelocytes % 2 %; Neutrophils % (M) 80 %; Nucleated Red Blood Cells 0 /100 WBC (0-0); Total Cells Counted 200
[2023-06-03 07:13] LABS: Anisocytosis (M) Present
[2023-06-03 07:14] LABS: Poikilocytosis (M) Present
[2023-06-03] MEDS: LIDOCAINE 2%-EPI 1:100,000 20 ML VIAL SQ ONE (07:32)
--- NOTE | 2023-06-03 07:49 | P.ANPRN ---
Procedure Note - Anesthesia - Nerve Block Performed Bilateral Erector Spinae Single Time Out Performed: Yes Date of Procedure: 06/03/23 Procedure Start Time: 06:33 Procedure Stop Time: 06:41 Location of Patient: PreOp Indication: Acute Post-Operative Pain, Requested by Surgeon Sedation Type: Sedate with meaningful contact maintained Preparation: Sterile Prep Position: Prone Needle Types: Pajunk Needle Gauge: 21 Ultrasound used to visualize needle placement: Yes Ultrasound used to observe medication spread: Yes Injectate: 0.5% Ropivacaine (see comment for volume) (Ropivacaine 0.5% 20 ml + 10 ml NS + 4 mg Dexamethasone per side) Blood Aspirated: No Pain Paresthesia on Injection Noted: No Resistance on Injection: Normal Image Stored and Saved: Yes Events: Uneventful and Well Tolerated
--- NOTE | 2023-06-03 10:22 | P.OP ---
Date of Procedure: 06/03/23 Description of Procedure: SURGEON: PRIYA NATHAN MD PREOPERATIVE DIAGNOSES: 1. Bilateral inguinal hernias, recurrent 2. Severe chronic obstructive pulmonary disease 3. Left recurrent inguinal hernia with incarceration sigmoid colon 4. Underweight 5. Steroid-dependent chronic obstructive pulmonary disease 6. Hypertensive heart disease with congestive heart failure 7. Gastroesophageal reflux disease 8. Iron deficiency anemia 9. Neurogenic bladder 10. Ischemic cardiomyopathy 11. History of myocardial infarction POSTOPERATIVE DIAGNOSES: 1. Bilateral inguinal hernias, recurrent, incarcerated 2. Severe chronic obstructive pulmonary disease 3. Left recurrent inguinal hernia with incarceration sigmoid colon 4. Underweight 5. Steroid-dependent chronic obstructive pulmonary disease 6. Hypertensive heart disease with congestive heart failure 7. Gastroesophageal reflux disease 8. Iron deficiency anemia 9. Neurogenic bladder 10. Ischemic cardiomyopathy 11. History of myocardial infarction 12. Bilateral pelvic adhesions 13. Sigmoid diverticulosis OPERATION: 1. Robotic-assisted da Maik Xi laparoscopic laparoscopic lysis of adhesions 2. Robotic-assisted da Maik Xi laparoscopic repair of incarcerated recurrent bilateral inguinal hernias with mesh, 10 x [address] ANESTHESIA: General with local anesthetic ESTIMATED BLOOD LOSS: 40 mL. SPECIMENS: None COMPLICATIONS: None. FINDINGS: 1. Recurrence of inguinal hernia along the posterior floor bilaterally. 2. Sigmoid colon incarcerated along the left inguinal canal 3. Right inguinal hernia, indirect involving posterior floor of cecum 4. Cecum and appendix adherent to right pelvis/mesh lysed 5. No acute appendicitis or diverticulitis 6. Sigmoid diverticulosis evident 7. Low pressure system performed throughout the procedure at 10 mmHg pressure instead of 15 mm Hg pressure insufflating at 20 mm pressure INDICATIONS: The patient is a 78-year-old male who presents with recurrent bilateral inguinal hernias with exacerbation of severe chronic obstructive pulmonary disease. He presented with exacerbation of chronic obstructive pulmonary disease. Cardiac risk assessment including pulmonary optimization was performed prior to surgery. Surgical intervention of bilateral inguinal hernia repair was described. Patient is elevated risk for which he understood risk of prolonged intubation, sterility, need for further surgery. Placement of mesh was also described. Informed consent was obtained. DESCRIPTION: In the preoperative area, an abdominal block was placed per anesthesia. The patient was brought to the operating room and initially laid in supine position. The abdomen had been prepped and draped in standard sterile fashion. Ioban draping was also placed. Prior to incision, a timeout protocol was confirmed with surgical team regarding patient's name including procedures to be performed. Initial positioning for the robotic assisted ports were selected 20 cm superior to the target anatomy. A 0 degree 5 mm laparoscopic trocar entry was performed at the left upper quadrant. The abdomen was insufflated under low pressure at 10 mmHg pressure instead of 15 mmHg which he tolerated well. High flow CO2 was adjusted from 40 mmHg pressure down to 20 mmHg pressure. Diagnostic laparoscopy demonstrated no injury to bowel, viscera or mesentery. Bilateral lower pelvis demonstrated adherent large bowel to the pelvis. Next, along the epigastrium, 8 mm robot trocar was placed. An 8-mm robotic trocar was placed under direct visualization at the right upper quadrant. An 8 mm port was placed at the left upper quadrant. All trocars were positioned between 10-cm apa rt from each other. A 12 mm laparoscopic trocar was placed along the right upper quadrant at the lateral abdominal wall for exchange of sutures and mesh. The [employer] XI robot was primed, draped, prepared for docking along upper abdomen of the patient. The patient was positioned 14 steep Trendelenburg position. I then went to the [employer] Xi console. The legal executive assistant was at bedside for exchange of the robot arms and equipment. Initial pelvic adhesions along the bilateral lower abdomen were taken down using blunt dissection including sharp dissection using scissors. Attention was brought to the right pelvis where the cecum and appendix was adherent to the mesh. Once the adhesions were released, fairly air at the inferior portion of the mesh was found due to weak posterior floor. The cecum was mobilized along the retroperitoneum. Thick fibrous band was divided using hook cautery. The hernia sac was released where the defect was over 3 x 2 cm along the posterior floor. The fascia of the right groin was reapproximated using absorbable 2-0 VLOC. A 10 x [address] mesh by [employer] was cut in half. The mesh was reapproximated to the retroperitoneum to reconstruct the pelvic floor and oversewn to the prior mesh using nonabsorbable 2-0 VLOC. The cecum and colon were positioned over the mesh. Attention was brought to the left groin. A weak posterior floor was identified. The sigmoid colon was found adherent to the mesh. Adhesions were lysed using scissors. The left posterior defect was also confirmed and 2 x 3 cm. The sigmoid colon was mobilized off the peritoneum to allow for reconstruction of the pelvic floor. Due to the large defect, an onlay 10 x [address] mesh by [employer] was cut in half and entered into the abdominal cavity via the 12 mm trocar. The mesh was tacked to the pelvis using absorbable 2-0 VLOC sutures reinforcing a weak posterior inguinal floor. The sigmoid colon was tacked to the mesh to prevent future incarceration. A final endoscopic imaging was obtained. The robot was undocked from the patient's bedside. I then rescrubbed into the case. Insufflation was released from the abdominal cavity and all instruments were removed from the abdominal cavity. The rest of incisions were reapproximated using 4-0 Monocryl in a running subcuticular fashion. Incisions were cleansed using dilute hydrogen peroxide. Liquid glue was applied to the skin. At the end of the procedure, the needle, sponge and instrument counts had been verified correct by the surgical rn. The patient had tolerated the procedure well and was taken to the postanesthesia care unit in stable condition.
--- NOTE | 2023-06-03 13:00 | P.PN ---
Subjective Progress Note Date: 06/03/23 History of present illness: This is a 78-year-old male patient of Dr. Josi Schofield with past medical history of chronic hypoxic respiratory failure on home O2 at 1 L nasal cannula, aortic dissection status postrepair at [facility] in 2019, thrombosis of subclavian artery, hypertension, dyslipidemia, remote history of tobacco use and dependence, COPD, benign prostatic hypertrophy, chronic kidney disease stage III. We have been asked to evaluate the patient for cardiac risk assessment. Patient presented to the hospital due to abdominal pain was diagnosed by general surgery to have a left inguinal hernia that needs to be redone. Patient is having significant difficulty in breathing secondary to COPD exacerbation. Stat nebulizer treatment ordered. Chest x-ray performed this morning reveals COPD. Mild interstitial density in the lower lungs could reflect bronchitis or subtle interstitial infiltrates or atypical pneumonia. Early pulmonary vascular congestion is also possible. CT of the abdomen pelvis revealed aortic dissection extending from the inferior aspect of the intrathoracic stent graft to the aortic bifurcation. Major vessels of the abdominal aorta originate off the true lumen. Left lower lung airspace opacities correlate for pneumonia. Left inguinal hernia containing portions of redundant sigmoid colon. Scattered colonic diverticula. Moderate to severe emphysema changes in the lung bases. WBC 17.4, hemoglobin 11.3, platelet count 176. Electrolytes normal. BUN 44 creatinine 1.6. Blood sugar 165. Liver function test are normal. Influenza A, influenza B, COVID-19, RSV not detected. Home cardiac medications: Aspirin 81 mg daily, Lasix 30 mg daily, lisinopril 10 mg daily, magnesium oxide 500 mg daily, Toprol-XL 25 mg daily, potassium chloride 20 mg twice daily, Aldactone 25 mg daily. Echocardiogram performed 12/07/2022 reveals EF 55%, grade 1 diastolic dysfunction. Moderate to severe tricuspid regurgitation. 05/31 Patient's breathing is better but he continues to have wheezing. He is tentatively scheduled for inguinal hernia surgery on . Blood pressure 148/54, heart rate in the 80s and 90s, pulse ox 97% on 1 and half liters nasal cannula 06/01 Patient remains in sinus rhythm, heart rate 80-102, blood pressure 105/63, pulse ox 97% on 1/2 L nasal cannula. Lab work is been ordered for tomorrow. Patient's surgery date has been postponed to Tuesday. Patient's respiratory status appears more stable. He states his shortness of breath is improving. No lower extremity edema. Heart rate is running between 80-101, blood pressure 131/75. Patient's breathing status continues to improve slowly. He is scheduled for inguinal hernia repair tomorrow. Blood pressure 137/68, heart rate in the 70s and 80s, pulse ox 90% on 1/2 L nasal cannula. Repeat blood work reveals hemoglobin of 11.8, WBC 12. Potassium 4.5, BUN 51 creatinine 1.48. 07/02 Patient is undergoing inguinal hernia repair today. Blood pressure 156/72, heart rate in the 80s, pulse ox 99% on 2 L nasal cannula. Repeat blood work reveals WBC 14.8, hemoglobin 1.9, platelet count 183. BUN 65 creatinine 1.53. Physical examination: Gen: This is a 78-year-old male. VS: reviewed HEENT: Head is atraumatic, normocephalic. Pupils equal, round. Sclerae is anicteric. LUNGS: Mild wheezing bilaterally. HEART: Regular rate and rhythm. No murmur. ABDOMEN: Soft No tenderness. EXTREMITIES: No pedal edema. No calf tenderness. NEUROLOGICAL: Patient is awake, alert and oriented x3. Assessment: Incarcerated left inguinal hernia scheduled for surgery today Acute exacerbation of COPD Acute on chronic hypoxic respiratory failure Leukocytosis most likely secondary to steroids as an outpatient History of aortic dissection status postrepair Thrombosis of subclavian artery Hypertension Hyperlipidemia Chronic kidney disease stage III Plan: Continue patient's home cardiac medications No need to repeat echocardiogram Cardiology will sign off this case and follow on an as-needed basis. Please reconsult for any new concerns. Patient may follow-up with Dr. Josi Schofield in the office in 2 weeks. Nurse practitioner note has been reviewed, I agree with documented findings and plan of care. Patient was seen and examined. Objective - Vital Signs Vital signs: Vital Signs Temp 97.0 F L 06/03/23 05:55 Pulse 84 06/03/23 06:44 Resp 18 06/03/23 06:44 BP 139/72 06/03/23 06:44 Pulse Ox 95 06/03/23 06:44 FiO2 Intake & Output 06/02/23 06/03/23 06/03/23 18:59 06:59 18:59 Intake Total 2885 320 1310 Output Total 1100 1300 Balance 138 -650 1200 Intake: IV 650 1200 Oral 1238 Output: Urine 1100 1300 Other: Voiding Method External Catheter External Catheter # Bowel Movements 1 - Labs CBC & Chem 7: 06/03/23 06:03 06/03/23 06:03 Labs: Abnormal Lab Results - Last 24 Hours (Table) 06/03/23 06/03/23 Range/Units 06:03 06:03 WBC 14.8 H (3.8-10.6) k/uL RBC 4.25 L (4.30-5.90) m/uL Hgb 11.9 L (13.0-17.5) gm/dL Hct 37.0 L (39.0-53.0) % RDW 15.7 H (11.5-15.5) % Neutrophils # (Manual) 11.90 H (1.3-7.7) k/uL Metamyelocytes # (Man) 0.15 H (0) k/uL Myelocytes # (Manual) 0.30 H (0) k/uL Carbon Dioxide 36 H (22-30) mmol/L BUN 65 H (9-20) mg/dL Creatinine 1.53 H (0.66-1.25) mg/dL Glucose 123 H (74-99) mg/dL
--- NOTE | 2023-06-03 15:06 | P.PN ---
Subjective Progress Note Date: 06/03/23 This is a 78-year-old male patient with known history of advanced COPD maintained on Symbicort and Combivent on outpatient basis and the patient has home O2 has been on oxygen for the past 6 months. His baseline FEV1 is in order of 20% of predicted. The patient also has issues with inguinal hernia. The patient underwent repair of inguinal hernia back in 12/09/2022. He presented to the hospital because of abdominal pain. CAT scan of the abdomen and pelvis was done on 05/28/2023 and it showed a left inguinal hernia containing portions of the redundant sigmoid colon and scattered colonic diverticuli. There is also some limited airspace disease involving the left lung base along with advanced and severe emphysematous changes bilaterally and there is also a chronically noted aortic dissection in the inferior aspect of the intrathoracic aorta just behind the previously inserted aortic stent graft and this dissection extends to the level of bifurcation. The patient is having bowel movements. In fact he was having some loose liquidy diarrhea. His white cell count was 27 at time of admission dropped down to 17.4. Hemoglobin 11.3 and the platelet count is 176. He has chronic kidney disease with a BUN of 44 and creatinine 1.6 and his sodium level is at 138 with a potassium level of 4.6. No fever. Currently is on 1 and half liters of oxygen by nasal cannula with a pulse ox of 99%. The chest x-ray is not showing any acute abnormalities. There are some interstitial density in the left lung base. The patient is currently on bronchodilators and steroids as the patient is also having increased dyspnea and he does have some signs of COPD exacerbation. No nausea. No emesis. No altered mentation. On today's evaluation of 05/31/2023, I am seeing the patient for a follow-up. The patient has advanced COPD maintained on Symbicort and Combivent on outpatient basis. The patient also has had difficulty with a incarcerated left inguinal hernia. The plan is to proceed with surgery and surgery has been tentatively planned to be done on 06/02/2023. Clinically the patient is feeling better. Less short of breath. Responding to the combination of bronchodilators and steroids. The patient is currently on IV Solu-Medrol 40 mg every 12 hours. He is also on DuoNeb updrafts and Symbicort. He is using the incentive spirometer. No fever or chills. No significant sputum production. No chest pain. No new labs are available from today. The viral screen was negative. On today's evaluation of 06/01/2023, the patient is feeling stable and he has no new complaints. No interval worsening shortness of breath. No interval worsening of abdominal pain. He is stooling. He is scheduled to undergo a repair of an incarcerated hernia within the next 24 to 48 hours. Remains on D uoNeb updrafts, Symbicort as maintenance and IV Solu-Medrol. He is currently on 40 mg of IV Solu-Medrol every 12 hours. No new labs are available from today. Oxygenation remained stable and the patient is currently on 1.5 L with a pulse ox of 98%. He is using incentive spirometer. On 06/02/2023, the patient is stable. No interval worsening shortness of breath. Remains on IV Solu-Medrol. Remains on Symbicort. Remains on DuoNeb. Using incentive spirometer. The plan is to proceed with repair of a inguinal hernia and this will be done by general surgery tomorrow. Remains on normal citrate at 50 cc an hour. The blood work was reviewed. The white cell count is down to 12 with a hemoglobin of 11 and a platelet count of 178. BUN is 51 with a creatinine of 1.4 and sodium levels at 137. At this point, the patient is on 1.5 L of O2 nasal cannula with a pulse ox of 98%. The patient is being seen on follow-up on 06/03/2023. The patient is scheduled to undergo surgery today. The patient has recurrent bilateral inguinal hernias and the patient will need surgical intervention. Overall respiratory status is stable. I saw the patient prior to him being taken to the operating room. R emains on bronchodilators. Remains on Symbicort. Remains on IV Solu-Medrol 40 mg every 12 hours. Labs from today are stable with a white cell count of 14, hemoglobin 11.9 and platelet count of 183. The BUN is a 65 with a creatinine of 1.53. The patient remains on O2 and he is currently on 2 L which was weaned down to 1 L nasal cannula with a pulse ox of 99%. He is afebrile and hemodynamically stable at this point in time. Objective - Vital Signs Vital signs: Vital Signs Temp 97.0 F L 06/03/23 05:55 Pulse 84 06/03/23 06:44 Resp 18 06/03/23 06:44 BP 139/72 06/03/23 06:44 Pulse Ox 95 06/03/23 06:44 FiO2 Intake & Output 06/02/23 06/03/23 06/03/23 18:59 06:59 18:59 Intake Total 0637 870 2792 Output Total 1100 1300 20 Balance 138 -650 1380 Intake: IV 650 1400 Oral 1238 Output: Urine 1100 1300 Estimated Blood Loss 20 Other: Voiding Method External Catheter External Catheter # Bowel Movements 1 - Exam GENERAL EXAM: Alert, 78-year-old white male, comfortable in no apparent distress. Walker at bedside. The patient is currently on 2 L of oxygen by nasal cannula pulse ox of 99% HEAD: Normocephalic and atraumatic EYES: Normal reaction of pupils, equal size. NOSE: Clear with pink turbinates. THROAT: No erythema or exudates. NECK: No masses, no JVD. CHEST: No chest wall deformity. LUNGS: Equal air entry with end expiratory wheezes with forced expiratory maneuver. No crackles, rhonchi, or focal dullness. Breath sounds are marked diminished bilaterally. No conversational dyspnea or accessory muscle use while at rest.. CVS: S1 and S2 normal with no audible murmur, regular rhythm. No extra heart sounds ABDOMEN: No hepatosplenomegaly, active bowel sounds, no guarding or rigidity. SPINE: No scoliosis or deformity SKIN: No rashes CENTRAL NERVOUS SYSTEM: No focal deficits, tone is normal in all 4 extremities. EXTREMITIES: There is no peripheral edema, clubbing, or cyanosis. Peripheral pulses are intact. - Labs CBC & Chem 7: 06/03/23 06:03 06/03/23 06:03 Labs: Abnormal Lab Results - Last 24 Hours (Table) 06/03/23 06/03/23 Range/Units 06:03 06:03 WBC 14.8 H (3.8-10.6) k/uL RBC 4.25 L (4.30-5.90) m/uL Hgb 11.9 L (13.0-17.5) gm/dL Hct 37.0 L (39.0-53.0) % RDW 15.7 H (11.5-15.5) % Neutrophils # (Manual) 11.90 H (1.3-7.7) k/uL Metamyelocytes # (Man) 0.15 H (0) k/uL Myelocytes # (Manual) 0.30 H (0) k/uL Carbon Dioxide 36 H (22-30) mmol/L BUN 65 H (9-20) mg/dL Creatinine 1.53 H (0.66-1.25) mg/dL Glucose 123 H (74-99) mg/dL Assessment and Plan Plan: Acute on chronic dyspnea part today to his COPD. At the same time the patient has an incarcerated left inguinal hernia with secondary abdominal pain. The patient is awaiting surgery. Overall pulmonary status is stable. Oxygenation is also stable. Chronic hypoxic respiratory failure the patient is currently on 2 L of O2 nasal cannula Incarcerated left inguinal hernia with secondary abdominal pain. The patient has no signs of any bowel obstruction. Still having bowel movements on a regular basis. General surgery is on the case, Clinically stable awaiting surgery to be done on 06/03/2023 Possible acute gastroenteritis/diarrhea History of bilateral incarcerated inguinal hernia repairs 12/09/2022 Acute leukocytosis, improving Acute exacerbation of COPD, with secondary shortness of breath Chronic obstructive pulmonary disease, with a FEV1 of 20% of pred, and the patient is on Symbicort and combivent and he has been on 02 at 1.5 liters/min History of greater than 50 years smoking, quit March 2022 Chronic kidney disease stage III History of neurogenic bladder History of thoracic aortic aneurysm/aortic valve repair at [facility] May 2018, and the patient has chronic dissection in the aorta below the Endo vascular stent graft extending to the level of the bifurcation of the aorta. Hypertension Hyperlipidemia History of depression Plan: Will proceed with surgery today Respiratory status is stable Encourage use of incentive spirometer Agree on DuoNeb nebulized treatments [id number] Continue Symbicort IV Solu-Medrol 40 mg every 12 hours and this will be continued the same dose Patient negative for influenza, RSV, COVID Will continue to follow Will monitor his pulm progress closely. May need closer monitoring should he encounter any respiratory difficulties following general anesthesia. Prognosis in general poor secondary above-mentioned comorbidities.
[2023-06-03] MEDS ORDERED: HYDROcodone/APAP 5-325MG 1 EACH TAB PO PRN (17:36)
[2023-06-03] MEDS ORDERED: ZINC OXIDE PASTE (Z-GUARD) 1 APPLIC TOPICAL PRN (21:11)
[2023-06-04 06:07] LABS: Glucose,Whole Blood 105 mg/dL (70-110)
[2023-06-04] MEDS: PSYLLIUM HUSK 100% 6 GM PACKET PO SCH (08:27)
[2023-06-04] MEDS: LACTULOSE 20 GM/30 ML CUP PO SCH (08:34)
[2023-06-04 09:03] LABS: Basophils # (A) 0.1 k/uL (0-0.2); Basophils % (A) 0 %; Eosinophils # (A) 0.1 k/uL (0-0.7); Eosinophils % (A) 0 %; HCT 36.3 % (39.0-53.0); HGB 11.4 gm/dL (13.0-17.5); Hypochromasia Slight; Lymphocytes # (A) 1.3 k/uL (1.0-4.8); Lymphocytes % (A) 7 %; MCH 27.8 pg (25.0-35.0); MCHC 31.3 g/dL (31.0-37.0); MCV 88.9 fL (80.0-100.0); Monocytes # (A) 1.3 k/uL (0-1.0); Monocytes % (A) 7 %; Neutrophils # (A) 15.7 k/uL (1.3-7.7); Neutrophils % (A) 84 %; Platelet Count 186 k/uL (150-450); RBC 4.08 m/uL (4.30-5.90); RDW 15.6 % (11.5-15.5); WBC 18.6 k/uL (3.8-10.6)
[2023-06-04 09:15] LABS: African American GFR (CKD) 49 (>60 ml/min/1.73 sqM); Anion Gap 6 mmol/L; Blood Urea Nitrogen 51 mg/dL (9-20); Carbon Dioxide 32 mmol/L (22-30); Chloride 102 mmol/L (98-107); Glucose 109 mg/dL (74-99); Non-African American GFR(CKD) 43 (>60 ml/min/1.73 sqM); Potassium 3.9 mmol/L (3.5-5.1); Sodium 140 mmol/L (137-145)
[2023-06-04] MEDS: ceFAZolin 1 GM in DEXTROSE/WATER 1 50ML.BAG IVPB SCH (11:06)
[2023-06-04 11:33] LABS: Glucose,Whole Blood 141 mg/dL (70-110)
--- NOTE | 2023-06-04 11:34 | P.PN ---
Subjective Progress Note Date: 06/04/23 This is a 78-year-old male patient with known history of advanced COPD maintained on Symbicort and Combivent on outpatient basis and the patient has home O2 has been on oxygen for the past 6 months. His baseline FEV1 is in order of 20% of predicted. The patient also has issues with inguinal hernia. The patient underwent repair of inguinal hernia back in 12/09/2022. He presented to the hospital because of abdominal pain. CAT scan of the abdomen and pelvis was done on 05/28/2023 and it showed a left inguinal hernia containing portions of the redundant sigmoid colon and scattered colonic diverticuli. There is also some limited airspace disease involving the left lung base along with advanced and severe emphysematous changes bilaterally and there is also a chronically noted aortic dissection in the inferior aspect of the intrathoracic aorta just behind the previously inserted aortic stent graft and this dissection extends to the level of bifurcation. The patient is having bowel movements. In fact he was having some loose liquidy diarrhea. His white cell count was 27 at time of admission dropped down to 17.4. Hemoglobin 11.3 and the platelet count is 176. He has chronic kidney disease with a BUN of 44 and creatinine 1.6 and his sodium level is at 138 with a potassium level of 4.6. No fever. Currently is on 1 and half liters of oxygen by nasal cannula with a pulse ox of 99%. The chest x-ray is not showing any acute abnormalities. There are some interstitial density in the left lung base. The patient is currently on bronchodilators and steroids as the patient is also having increased dyspnea and he does have some signs of COPD exacerbation. No nausea. No emesis. No altered mentation. On today's evaluation of 05/31/2023, I am seeing the patient for a follow-up. The patient has advanced COPD maintained on Symbicort and Combivent on outpatient basis. The patient also has had difficulty with a incarcerated left inguinal hernia. The plan is to proceed with surgery and surgery has been tentatively planned to be done on 06/02/2023. Clinically the patient is feeling better. Less short of breath. Responding to the combination of bronchodilators and steroids. The patient is currently on IV Solu-Medrol 40 mg every 12 hours. He is also on DuoNeb updrafts and Symbicort. He is using the incentive spirometer. No fever or chills. No significant sputum production. No chest pain. No new labs are available from today. The viral screen was negative. On today's evaluation of 06/01/2023, the patient is feeling stable and he has no new complaints. No interval worsening shortness of breath. No interval worsening of abdominal pain. He is stooling. He is scheduled to undergo a repair of an incarcerated hernia within the next 24 to 48 hours. Remains on D uoNeb updrafts, Symbicort as maintenance and IV Solu-Medrol. He is currently on 40 mg of IV Solu-Medrol every 12 hours. No new labs are available from today. Oxygenation remained stable and the patient is currently on 1.5 L with a pulse ox of 98%. He is using incentive spirometer. On 06/02/2023, the patient is stable. No interval worsening shortness of breath. Remains on IV Solu-Medrol. Remains on Symbicort. Remains on DuoNeb. Using incentive spirometer. The plan is to proceed with repair of a inguinal hernia and this will be done by general surgery tomorrow. Remains on normal citrate at 50 cc an hour. The blood work was reviewed. The white cell count is down to 12 with a hemoglobin of 11 and a platelet count of 178. BUN is 51 with a creatinine of 1.4 and sodium levels at 137. At this point, the patient is on 1.5 L of O2 nasal cannula with a pulse ox of 98%. The patient is being seen on follow-up on 06/03/2023. The patient is scheduled to undergo surgery today. The patient has recurrent bilateral inguinal hernias and the patient will need surgical intervention. Overall respiratory status is stable. I saw the patient prior to him being taken to the operating room. R carlosins on bronchodilators. Remains on Symbicort. Remains on IV Solu-Medrol 40 mg every 12 hours. Labs from today are stable with a white cell count of 14, hemoglobin 11.9 and platelet count of 183. The BUN is a 65 with a creatinine of 1.53. The patient remains on O2 and he is currently on 2 L which was weaned down to 1 L nasal cannula with a pulse ox of 99%. He is afebrile and hemodynamically stable at this point in time. On today's evaluation of 06/04/2023, the patient is being seen for a follow-up. Note that the patient underwent bilateral inguinal hernia repair and this was done under general anesthesia. The patient had was found to have a incarcerated sigmoid colon along the left inguinal canal. The patient's right inguinal canal had indirect involving posterior fold of the cecum. No evidence of any appendicitis. There was sigmoid diverticulosis. Surgery was done and the p atient is currently resting comfortably in bed. Surgical wound site is dry clean and intact and the patient is currently on 2 L of O2 with a pulse ox of 96%. Using incentive spirometer. Using Symbicort as maintenance and DuoNeb updrafts. The patient remains on Solu-Medrol 40 mg every 12 hours. No altered mentation. No chest pain. No other new complaints. Hemodynamically stable. Objective - Vital Signs Vital signs: Vital Signs Temp 97.8 F 06/04/23 08:00 Pulse 102 H 06/04/23 08:00 Resp 20 06/04/23 08:00 BP 139/87 06/04/23 08:00 Pulse Ox 96 06/04/23 08:00 FiO2 Intake & Output 06/03/23 06/04/23 06/04/23 18:59 06:59 18:59 Intake Total 1670 Output Total 620 950 Balance 1050 -950 Intake: IV 1550 Oral 120 Output: Urine 600 950 Estimated Blood Loss 20 Other: Voiding Method Indwelling Catheter Indwelling Catheter - Exam GENERAL EXAM: Alert, 78-year-old white male, comfortable in no apparent dist ress. Walker at bedside. The patient is currently on 2 L of oxygen by nasal cannula pulse ox of 99% HEAD: Normocephalic and atraumatic EYES: Normal reaction of pupils, equal size. NOSE: Clear with pink turbinates. THROAT: No erythema or exudates. NECK: No masses, no JVD. CHEST: No chest wall deformity. LUNGS: Equal air entry with end expiratory wheezes with forced expiratory maneuver. No crackles, rhonchi, or focal dullness. Breath sounds are marked diminished bilaterally. No conversational dyspnea or accessory muscle use while at rest.. CVS: S1 and S2 normal with no audible murmur, regular rhythm. No extra heart sounds ABDOMEN: No hepatosplenomegaly, active bowel sounds, no guarding or rigidity. SPINE: No scoliosis or deformity SKIN: No rashes CENTRAL NERVOUS SYSTEM: No focal deficits, tone is normal in all 4 extremities. EXTREMITIES: There is no peripheral edema, clubbing, or cyanosis. Peripheral pulses are intact. - Labs CBC & Chem 7: 06/04/23 08:35 06/04/23 08:35 Labs: Abnormal Lab Results - Last 24 Hours (Table) 06/04/23 06/04/23 Range/Units 08:35 08:35 WBC 18.6 H (3.8-10.6) k/uL RBC 4.08 L (4.30-5.90) m/uL Hgb 11.4 L (13.0-17.5) gm/dL Hct 36.3 L (39.0-53.0) % RDW 15.6 H (11.5-15.5) % Neutrophils # 15.7 H (1.3-7.7) k/uL Monocytes # 1.3 H (0-1.0) k/uL Carbon Dioxide 32 H (22-30) mmol/L BUN 51 H (9-20) mg/dL Creatinine 1.56 H (0.66-1.25) mg/dL Glucose 109 H (74-99) mg/dL Calcium 8.0 L (8.4-10.2) mg/dL Assessment and Plan Plan: Acute on chronic dyspnea part today to his COPD. At the same Incarcerated left inguinal hernia with secondary abdominal pain. The patient is status post bilateral inguinal hernia repair and the patient is postop day #1. Chronic hypoxic respiratory failure the patient is currently on 2 L of O2 nasal cannula Incarcerated left inguinal hernia with secondary abdominal pain. The patient has no signs of any bowel obstruction. Still having bowel movements on a regular basis. General surgery is on the case, Clinically stable awaiting surgery to be done on 06/03/2023 Possible acute gastroenteritis/diarrhea History of bilateral incarcerated inguinal hernia repairs 12/09/2022 Acute leukocytosis, improving Acute exacerbation of COPD, with secondary shortness of breath Chronic obstructive pulmonary disease, with a FEV1 of 20% of pred, and the patient is on Symbicort and combivent and he has been on 02 at 1.5 liters/min History of greater than 50 years smoking, quit March 2022 Chronic kidney disease stage III History of neurogenic bladder History of thoracic aortic aneurysm/aortic valve repair at [facility] May 2018, and the patient has chronic dissection in the aorta below the Endo vascular stent graft extending to the level of the bifurcation of the aorta. Hypertension Hyperlipidemia History of depression Plan: Patient is post bilateral inguinal hernia repair under general anesthesia without any pulmonary complications. Passing flatus. Respiratory status is stable Encourage use of incentive spirometer Agree on DuoNeb nebulized treatments [id number] Continue Symbicort IV Solu-Medrol 40 mg every 12 hours and this will be continued the same dose Patient negative for influenza, RSV, COVID Will continue to follow Will monitor his pulm progress closely. Prognosis in general poor secondary above-mentioned comorbidities.
--- NOTE | 2023-06-04 11:57 | P.PN ---
Subjective Progress Note Date: 06/04/23 [place]. No N/V. No F/C. No SOB or CP. Pain well controlled on current regimen. Admits to flatus and small BM. Ambulatory and voiding. Objective - Vital Signs Vital signs: Vital Signs Temp 97.8 F 06/04/23 08:00 Pulse 80 06/04/23 11:10 Resp 16 06/04/23 11:10 BP 115/59 06/04/23 11:10 Pulse Ox 96 06/04/23 11:10 FiO2 Intake & Output 06/03/23 06/04/23 06/04/23 18:59 06:59 18:59 Intake Total 1670 758 Output Total 620 950 Balance 1050 -950 758 Intake: IV 1550 Oral 120 758 Output: Urine 600 950 Estimated Blood Loss 20 Other: Voiding Method Indwelling Catheter Indwelling Catheter - Exam Gen: AxO, NAD Pulm: non-labored respirations Abd: soft, mildly distended, tender around incisions. No guarding/rebound/rigidity Incisions: C/D/I, no erythema or drainage seen Extrem: no edema appreciated - Labs CBC & Chem 7: 06/04/23 08:35 06/04/23 08:35 Labs: Abnormal Lab Results - Last 24 Hours (Table) 06/04/23 06/04/23 06/04/23 Range/Units 08:35 08:35 11:32 WBC 18.6 H (3.8-10.6) k/uL RBC 4.08 L (4.30-5.90) m/uL Hgb 11.4 L (13.0-17.5) gm/dL Hct 36.3 L (39.0-53.0) % RDW 15.6 H (11.5-15.5) % Neutrophils # 15.7 H (1.3-7.7) k/uL Monocytes # 1.3 H (0-1.0) k/uL Carbon Dioxide 32 H (22-30) mmol/L BUN 51 H (9-20) mg/dL Creatinine 1.56 H (0.66-1.25) mg/dL Glucose 109 H (74-99) mg/dL POC Glucose (mg/dL) 141 H (70-110) mg/dL Calcium 8.0 L (8.4-10.2) mg/dL Assessment and Plan Assessment: Patient is a 78 year old male who is s/p recurrent bilateral inguinal hernia repair Plan: -Diet as tolerated -PRN pain and nausea control -Encourage ambulation -DVT/GI Ppx -Care per primary Diogenes Pinto MD General Surgery
[2023-06-04 19:57] LABS: Glucose,Whole Blood 120 mg/dL (70-110)
[2023-06-05 06:13] LABS: Glucose,Whole Blood 123 mg/dL (70-110)
--- NOTE | 2023-06-05 06:32 | P.PN ---
Subjective Progress Note Date: 06/03/23 HISTORY OF PRESENT ILLNESS: History of present illness; patient 78-year-old male patient with a history of chronic obstructive pulmonary disease, former smoker, daily alcohol use, gastroesophageal reflux disease, hypertension, hyperlipidemia, neuromuscular dysfunction and the bladder,, previous thoracic aortic aneurysm repair for aortic valve repair, chronic aortic dissection who presented to the ER for abdominal pain. Stated he was all right yesterday when after eating [place] food he started having abdominal pain. Abdominal pain was initially generalized but later on progressed to involve the left lower quadrant. Patient also having profuse diarrhea, stools were watery in consistency, no blood in it. There was complaint of nausea and vomiting. Denied any fever but was complaining of chills. There was no complaint of orthopnea or PND. There was no cough no nyla st pain or shortness of breath. Patient thinks all this is secondary to him eating tacos and does not think they are most hygienic. Because abdominal pain, patient came to the ER. CT abdominal pelvis done showed redemonstration of aortic dissection extending from the inferior aspect of the intrathoracic stent graft to the aortic bifurcation. Left lower lung opacities correlate for pneumonia. Left inguinal hernia containing portion of redundant sigmoid colon. Patient was seen general surgery despite having this hernia repair 6 months ago looks like there is a relapse hernia need to be repaired. The patient is hemodynamically stable at this point with history of mild COPD, mild congestive heart failure and history of EtOH. Patient will be stabilized and probably eventually go for surgery. 05-30-2023: Patient is feeling slightly better continue having slight pain and discomfort consult pulmonary review cardiovascular testing patient seen cardiology see when was the last echocardiogram plan for clearance and getting patient ready probably for surgery. 05-31-2023: Patient is feeling better, significantly decreasing abdominal pain and discomfort. He was seen and evaluated by vascular, cardiology, and pulmonary try to optimize his medical management and the plan is to go for robo tic bilateral hernia repair again on 06-02-2023. Will review his labs today, increase physical activity with physical therapy, awaiting for surgery in the next 48 hours. Patient in the meanwhile stable doing well. The exception of his slight decline in kidney function with creatinine is up to 1.60 his white blood cell is down 17.4, blood sugar still mildly elevated being managed currently. Pulmonary dejesus with his FEV1 only 20 percentile patient was started on Solu-Medrol 40 mg every 12 hours given the the possibility that patient might require mechanical ventilation with surgery the patient is aware if it is willing to. The details of his aneurysm repair at [facility] years ago that he had stable dissection does not require any attention at this point just to monitor his blood pressure and keep it under control. On last at least Cardiology are aware of patient comorbidity his echocardiogram is recent did not require any repeat echo at this point just to maximize his medical management and he will be ready for surgery. 06-01-2023: Patient is doing well he is ready for surgery tomorrowWas cleared by vascular, pulmonary and cardiology. His ability to do anything physical is very limited at this point patient is extremely out of breath with minimal exertion. He has got worse on physical therapy and Occupational Therapy afterward. He still having significant pain discomfort in the groin area and lower abdominal region area which make it not easy for patient to leave the hospital and to come back within a week for the surgery because out of incarceration is very high at this point. 06-02-2023: Patient is stable was post to have surgery today apparently scheduled for tomorrow first thing in the morning. He still seen by cardiology and pulmonary patient is very stable medically still on DuoNeb along with Medrol IV shortness of breath is improved to require 1.5 L of O2 to keep him at 97 percentile. Mobility still significantly decreased and patient required physical therapy shortly after surgery. Again has a plan to go for surgery testing tomorrow morning and patient is medically stable no need for any other testing or management before the surgery. Kidney function remains at stage III chronic kidney disease will continue hydration and watch his urine output. 06-03-2023: Patient is going for surgery finally today feeling well he is stable on current dose of oxygen at 1 L he is running around 98 percentile, pain is under controlled, lower abdominal discomfort with his hernia settled down quite a bit. The patient was cleared by cardiology as well. REVIEW OF SYSTEMS: CONSTITUTIONAL: Very thin and looks malnourished in no respiratory distress EYES: No icterus sclerae, no conjunctivitis. EARS, NOSE, MOUTH, THROAT, and FACE: No sore throat, lymphadenopathy, carotid bruits or deformity. RESPIRATORY: Mild shortness of cough and wheezes. CARDIOVASCULAR: History of mild congestive heart failure no chest pain or angina PND orthopnea or palpitation. GASTROINTESTINAL: Positive abdominal pain with nausea no vomiting still having stool. GENITOURINARY: Negative for Hematuria or UTI, no kidney stones. INTEGUMENT/BREAST: Negative for any muscular injury with mild osteoarthritis.. HEMATOLOGIC/LYMPHATIC: Negative for bleed or purpura. MUSCULOSKELTAL: Negative for Myalgia or arthralgia. NEURLOGICAL: No LOC, Sz or syncope, blurred vision dizziness or abnormality.. BEHAVIORAL/PSYCH: Negative. ENDOCRINE: Negative. PHYSICAL EXAMINATION: General Appearance: Alert, cooperative, no distress, looks older than his age and quite thin and malnourished. Neck HEENT: Supple, no lymphadenopathy, no thyroid enlargement, no carotid bruits. Lungs: Decreased breath sound bilaterally with rhonchi positive mild expiratory wheezes. Chest Wall: Decreased expansion with deep inspiration no tenderness and no deformity was found on exam, no costochondral pain or discomfort. Heart: Regular rate and rhythm, S1, S2 normal, no murmur, rub or gallop. Back: Symmetric, no curvature, ROM normal, no CVA tenderness. Abdomen: Significant tenderness and discomfort lower abdominal region area mostly on the left side with no rebound or rigidity. Extremities: Extremities normal, atraumatic, no cyanosis or edema. Pulses: 2+ and symmetric. Skin: Skin color, texture, tugor normal, no rashes or lesions. Neurologic: Alert oriented x3 cranial nerves II through XII intact, no motor deficit, no abnormal balance or gait. ASSESSMENT AND PLAN: _Severe abdominal pain: Bilateral relapse hernia repair from few months ago he will be required to go for another surgery. For bilateral robotic repair, he is going for robotic surgery today. _Severe COPD: Remain on DuoNeb and Pulmicort still on Solu-Medrol 40 mg every 12 hours pulmonary consultation continue O2 titrate To keep pulse ox above 92%. His FEV1 is 20 percentile patient might require mechanical ventilation after surgery. Pulmonary Daily the patient lung status has been to an analysis follow-up to go for surgery with all possibility of more complication patient potential of end up on the ventilator is very high. _ Mild congestive heart failure: Has been on spironolactone, lisinopril, metoprolol and furosemide resume medication will consult cardiology review last echocardiogram see if patient need to have any further testing before surgery. _ Chronic kidney disease stage III with acute kidney injury, continue hydration lower any nephrotoxic agent at this point. Repeat kidney function with labs tomorrow. Kidney function is slightly down continue hydration continue to watch for any urinary retention. _ Leukocytosis: Is probably affected by steroid at this point white blood cell is not any worse. _ Anemia: Mostly iron deficiency will look for any acute bleed continue pantoprazole for GI prophylaxis watch for any decline in hemoglobin in the next 24 hours. No decline in hemoglobin still very stable. _ BPH: No sign of any urinary retention continue Flomax. Planning: Going for robotic surgery today, still being evaluated by social services and physical therapy without Need any further help after his surgery is done. Objective - Vital Signs Vital signs: Vital Signs Temp 97.9 F 06/03/23 04:00 Pulse 69 06/03/23 04:00 Resp 16 06/03/23 04:00 BP 157/67 06/03/23 04:00 Pulse Ox 93 L 06/03/23 04:00 FiO2 Intake & Output 06/02/23 06/02/23 06/03/23 06:59 18:59 06:59 Intake Total 1238 Output Total 1000 1100 1300 Balance -1000 138 -1300 Intake: Oral 1238 Output: Urine 1000 1100 1300 Other: Voiding Method External Catheter External Catheter External Catheter # Bowel Movements 1 - Labs CBC & Chem 7: 06/04/23 08:35 06/04/23 08:35 Labs: Abnormal Lab Results - Last 24 Hours (Table) 06/02/23 06/02/23 Range/Units 06:01 06:01 WBC 12.0 H (3.8-10.6) k/uL RBC 4.17 L (4.30-5.90) m/uL Hgb 11.8 L (13.0-17.5) gm/dL Hct 37.0 L (39.0-53.0) % RDW 15.7 H (11.5-15.5) % Neutrophils # 10.2 H (1.3-7.7) k/uL Carbon Dioxide 34 H (22-30) mmol/L BUN 51 H (9-20) mg/dL Creatinine 1.48 H (0.66-1.25) mg/dL Glucose 118 H (74-99) mg/dL Total Protein 5.8 L (6.3-8.2) g/dL Albumin 3.2 L (3.5-5.0) g/dL
--- NOTE | 2023-06-05 06:34 | P.PN ---
Subjective Progress Note Date: 06/04/23 HISTORY OF PRESENT ILLNESS: History of present illness; patient 78-year-old male patient with a history of chronic obstructive pulmonary disease, former smoker, daily alcohol use, gastroesophageal reflux disease, hypertension, hyperlipidemia, neuromuscular dysfunction and the bladder,, previous thoracic aortic aneurysm repair for aortic valve repair, chronic aortic dissection who presented to the ER for abdominal pain. Stated he was all right yesterday when after eating Mong[place]ian food he started having abdominal pain. Abdominal pain was initially generalized but later on progressed to involve the left lower quadrant. Patient also having profuse diarrhea, stools were watery in consistency, no blood in it. There was complaint of nausea and vomiting. Denied any fever but was complaining of chills. There was no complaint of orthopnea or PND. There was no cough no nyla st pain or shortness of breath. Patient thinks all this is secondary to him eating tacos and does not think they are most hygienic. Because abdominal pain, patient came to the ER. CT abdominal pelvis done showed redemonstration of aortic dissection extending from the inferior aspect of the intrathoracic stent graft to the aortic bifurcation. Left lower lung opacities correlate for pneumonia. Left inguinal hernia containing portion of redundant sigmoid colon. Patient was seen general surgery despite having this hernia repair 6 months ago looks like there is a relapse hernia need to be repaired. The patient is hemodynamically stable at this point with history of mild COPD, mild congestive heart failure and history of EtOH. Patient will be stabilized and probably eventually go for surgery. 05-30-2023: Patient is feeling slightly better continue having slight pain and discomfort consult pulmonary review cardiovascular testing patient seen cardiology see when was the last echocardiogram plan for clearance and getting patient ready probably for surgery. 05-31-2023: Patient is feeling better, significantly decreasing abdominal pain and discomfort. He was seen and evaluated by vascular, cardiology, and pulmonary try to optimize his medical management and the plan is to go for robo tic bilateral hernia repair again on 06-02-2023. Will review his labs today, increase physical activity with physical therapy, awaiting for surgery in the next 48 hours. Patient in the meanwhile stable doing well. The exception of his slight decline in kidney function with creatinine is up to 1.60 his white blood cell is down 17.4, blood sugar still mildly elevated being managed currently. Pulmonary dejesus with his FEV1 only 20 percentile patient was started on Solu-Medrol 40 mg every 12 hours given the the possibility that patient might require mechanical ventilation with surgery the patient is aware if it is willing to. The details of his aneurysm repair at [facility] years ago that he had stable dissection does not require any attention at this point just to monitor his blood pressure and keep it under control. On last at least Cardiology are aware of patient comorbidity his echocardiogram is recent did not require any repeat echo at this point just to maximize his medical management and he will be ready for surgery. 06-01-2023: Patient is doing well he is ready for surgery tomorrowWas cleared by vascular, pulmonary and cardiology. His ability to do anything physical is very limited at this point patient is extremely out of breath with minimal exertion. He has got worse on physical therapy and Occupational Therapy afterward. He still having significant pain discomfort in the groin area and lower abdominal region area which make it not easy for patient to leave the hospital and to come back within a week for the surgery because out of incarceration is very high at this point. 06-02-2023: Patient is stable was post to have surgery today apparently scheduled for tomorrow first thing in the morning. He still seen by cardiology and pulmonary patient is very stable medically still on DuoNeb along with Medrol IV shortness of breath is improved to require 1.5 L of O2 to keep him at 97 percentile. Mobility still significantly decreased and patient required physical therapy shortly after surgery. Again has a plan to go for surgery testing tomorrow morning and patient is medically stable no need for any other testing or management before the surgery. Kidney function remains at stage III chronic kidney disease will continue hydration and watch his urine output. 06-03-2023: Patient is going for surgery finally today feeling well he is stable on current dose of oxygen at 1 L he is running around 98 percentile, pain is under controlled, lower abdominal discomfort with his hernia settled down quite a bit. The patient was cleared by cardiology as well. 06-04-2023: Patient is doing well he wants to go home today we will finalize his medication still pending on surgical approval for him to be discharged same time patient still have Guzman catheter in which will be removed to make sure patient is able to void on his own before he is discharged. Apparently patient does not have any rehab he will do home care and physical therapy. REVIEW OF SYSTEMS: CONSTITUTIONAL: Very thin and looks malnourished in no respiratory distress EYES: No icterus sclerae, no conjunctivitis. EARS, NOSE, MOUTH, THROAT, and FACE: No sore throat, lymphadenopathy, carotid bruits or deformity. RESPIRATORY: Mild shortness of cough and wheezes. CARDIOVASCULAR: History of mild congestive heart failure no chest pain or angina PND orthopnea or palpitation. GASTROINTESTINAL: Positive abdominal pain with nausea no vomiting still having stool. GENITOURINARY: Negative for Hematuria or UTI, no kidney stones. INTEGUMENT/BREAST: Negative for any muscular injury with mild osteoarthritis.. HEMATOLOGIC/LYMPHATIC: Negative for bleed or purpura. MUSCULOSKELTAL: Negative for Myalgia or arthralgia. NEURLOGICAL: No LOC, Sz or syncope, blurred vision dizziness or abnormality.. BEHAVIORAL/PSYCH: Negative. ENDOCRINE: Negative. PHYSICAL EXAMINATION: General Appearance: Alert, cooperative, no distress, looks older than his age and quite thin and malnourished. Neck HEENT: Supple, no lymphadenopathy, no thyroid enlargement, no carotid bruits. Lungs: Decreased breath sound bilaterally with rhonchi positive mild expiratory wheezes. Chest Wall: Decreased expansion with deep inspiration no tenderness and no deformity was found on exam, no costochondral pain or discomfort. Heart: Regular rate and rhythm, S1, S2 normal, no murmur, rub or gallop. Back: Symmetric, no curvature, ROM normal, no CVA tenderness. Abdomen: Significant tenderness and discomfort lower abdominal region area mostly on the left side with no rebound or rigidity. Extremities: Extremities normal, atraumatic, no cyanosis or edema. Pulses: 2+ and symmetric. Skin: Skin color, texture, tugor normal, no rashes or lesions. Neurologic: Alert oriented x3 cranial nerves II through XII intact, no motor deficit, no abnormal balance or gait. ASSESSMENT AND PLAN: _Severe abdominal pain: Bilateral relapse hernia repair from few months ago he will be required to go for another surgery. For bilateral robotic repair, he is going for robotic surgery today. _Severe COPD: Remain on DuoNeb and Pulmicort still on Solu-Medrol 40 mg every 12 hours pulmonary consultation continue O2 titrate To keep pulse ox above 92%. His FEV1 is 20 percentile patient might require mechanical ventilation after surgery. Pulmonary Daily the patient lung status has been to an analysis follow-up to go for surgery with all possibility of more complication patient potential of end up on the ventilator is very high. _ Mild congestive heart failure: Has been on spironolactone, lisinopril, metopr olol and furosemide resume medication will consult cardiology review last echocardiogram see if patient need to have any further testing before surgery. _ Chronic kidney disease stage III with acute kidney injury, continue hydration lower any nephrotoxic agent at this point. Repeat kidney function with labs tomorrow. Kidney function is slightly down continue hydration continue to watch for any urinary retention. _ Leukocytosis: Is probably affected by steroid at this point white blood cell is not any worse. _ Anemia: Mostly iron deficiency will look for any acute bleed continue pantoprazole for GI prophylaxis watch for any decline in hemoglobin in the next 24 hours. No decline in hemoglobin still very stable. _ BPH: No sign of any urinary retention continue Flomax. Planning: After his surgery is done patient wants to go home which hopefully will be done today waiting for him to see general surgery and pending on being able to void after removing his catheter and able to move safely on his own. Make sure to continue alpha-ross for BPH especially with the swelling around his hernia surgery causing him to have retention. Objective - Vital Signs Vital signs: Vital Signs Temp 98.0 F 06/03/23 20:00 Pulse 73 06/04/23 04:00 Resp 18 06/04/23 04:00 BP 120/72 06/04/23 04:00 Pulse Ox 98 06/04/23 04:00 FiO2 Intake & Output 06/03/23 06/04/23 06/04/23 18:59 06:59 18:59 Intake Total 1670 Output Total 620 950 Balance 1050 -950 Intake: IV 1550 Oral 120 Output: Urine 600 950 Estimated Blood Loss 20 Other: Voiding Method Indwelling Catheter Indwelling Catheter - Labs CBC & Chem 7: 06/04/23 08:35 06/04/23 08:35 Labs: Abnormal Lab Results - Last 24 Hours (Table) 06/03/23 Range/Units 06:03 Neutrophils # (Manual) 11.90 H (1.3-7.7) k/uL Metamyelocytes # (Man) 0.15 H (0) k/uL Myelocytes # (Manual) 0.30 H (0) k/uL
--- NOTE | 2023-06-05 09:23 | P.GSCN ---
History of Present Illness Consult date: 06/05/23 History of present illness: 78 yo male in the hospital after a repair of an incarcerated inguinal hernia. He has been having problems voiding after the burnett catheter was removed. We were asked to see the patient. His been straighted cathed for 400ml+ twice. He was on flomax prior to admission. The patient was seen Dr. bateman prior to hospitalization. No urologic intervention was recommended until his hernia status was corrected. He had a bowel movement this morning and states that he is voiding better since that bowel movement. Review of Systems All systems: negative - Constitutional Denies fever, Denies weight loss - EENT Eyes: denies blurred vision Ears, nose, mouth and throat: Denies dysphagia - Cardiovascular Denies chest pain, Denies shortness of breath - Respiratory Denies cough, Denies 7 - Gastrointestinal Reports as per HPI - Genitourinary Denies dysuria, Denies hematuria - Integumentary Denies rash, Denies unusual bruising - Neurological Denies headaches, Denies syncope - Hematologic/Lymphatic Denies easy bleeding, Denies easy bruising Past Medical History Past Medical History: COPD, Dialysis, GERD/Reflux, Hyperlipidemia, Hypertension Additional Past Medical History / Comment(s): Neuromuscular dysfunction of bladder, iron deficiency anemia, neurogenic bladder, pressure ulcers, dissection of thoracic aorta, no longer doing dialysis, previous ETOH abuse, [place] 2018, CHF History of Any Multi-Drug Resistant Organisms: ESBL Year Discovered:: 02/14/19 ESBL-E.coli MDRO Source:: Urine Past Surgical History: No Surgical Hx Reported Additional Past Surgical History / Comment(s): May 2018 thoracic aorta repair at [facility] Past Anesthesia/Blood Transfusion Reactions: No Reported Reaction Past Psychological History: No Psychological Hx Reported Smoking Status: Former smoker Past Alcohol Use History: Abuse, Daily Additional Past Alcohol Use History / Comment(s): quit 1989, began to drink again occasionally 2011 Past Drug Use History: None Reported Additional Drug Use History / Comment(s): pt stopped smoking 03/16/2022 - Past Family History Father Family Medical History: Cancer Mother Family Medical History: No Reported History Additional Family Medical History / Comment(s): of old age Medications and Allergies Home Medications Medication Instructions Recorded Confirmed Type Aspirin EC [Ecotrin Low Dose] 81 mg PO DAILY 12/06/22 05/28/23 History Multivit-Mins/Iron/Folic/Lycop 1 tab PO DAILY 12/06/22 05/28/23 History [Centrum Men's Tablet] Tamsulosin [Flomax] 0.4 mg PO HS 12/06/22 05/28/23 History Budesonide-Formot 160-4.5 Mcg 2 puff INHALATION RT-BID each 12/14/22 05/28/23 Rx [Symbicort 160-4.5 Mcg Inhaler] Furosemide [Lasix] 30 mg PO DAILY 12/31/22 05/28/23 History Metoprolol Succinate (ER) [Toprol 25 mg PO DAILY #30 12/31/22 05/28/23 Rx XL] Potassium Chloride [Klor-Con M20] 20 meq PO BID@0900,1400 12/31/22 05/28/23 History Ascorbic Acid [Vitamin C] 500 mg PO DAILY 05/28/23 05/28/23 History Ferrous Sulfate [Iron (65 MG 325 mg PO DAILY 05/28/23 05/28/23 History Elemental)] Ipratropium/Albuterol Sulfate 1 puff INHALATION RT-BID 05/28/23 05/28/23 History [Combivent Respimat Inhaler] Magnesium Oxide [Magnesium] 500 mg PO DAILY 05/28/23 05/28/23 History Mirabegron [Myrbetriq] 50 mg PO DAILY 05/28/23 05/28/23 History Omeprazole 20 mg PO DAILY 05/28/23 05/28/23 History Spironolactone [Aldactone] 25 mg PO DAILY 05/28/23 05/28/23 History lisinopriL [Zestril] 10 mg PO DAILY 05/28/23 05/28/23 History predniSONE [Deltasone] See Taper PO DAILY 05/28/23 05/28/23 History HYDROcodone/APAP 5-325MG [Eldridge 1 each PO Q6HR PRN #12 tab 06/04/23 Rx 5-325] Lactulose [Cephulac] 30 gm PO BID #450 ml 06/04/23 Rx Allergies Allergy/AdvReac Type Severity Reaction Status Date / Time No Known Allergies Allergy Verified 06/03/23 05:52 Surgical - Exam Vital Signs Temp Pulse Resp BP Pulse Ox 98.2 F 94 24 109/63 96 05/28/23 15:43 05/28/23 15:43 05/28/23 15:43 05/28/23 15:43 05/28/23 15:43 - General well developed, well nourished, no distress - Eyes normal ocular movement, no icteric - ENT no hearing loss, no congestion - Neck no masses, trachea midline - Respiratory normal respiratory effort, clear to auscultation - Abdomen Abdomen: soft, non tender, no guarding, no rigid, no rebound - Integumentary no rash, no abnormal pigmentation - Neurologic no disoriented, no combative - Psychiatric oriented to time, oriented to person, oriented to place, speech is normal, memory intact Results - Labs 06/04/23 08:35 06/04/23 08:35 Abnormal Lab Results - Last 24 Hours (Table) 06/04/23 06/04/23 06/04/23 Range/Units 08:35 08:35 11:32 WBC 18.6 H (3.8-10.6) k/uL RBC 4.08 L (4.30-5.90) m/uL Hgb 11.4 L (13.0-17.5) gm/dL Hct 36.3 L (39.0-53.0) % RDW 15.6 H (11.5-15.5) % Neutrophils # 15.7 H (1.3-7.7) k/uL Monocytes # 1.3 H (0-1.0) k/uL Carbon Dioxide 32 H (22-30) mmol/L BUN 51 H (9-20) mg/dL Creatinine 1.56 H (0.66-1.25) mg/dL Glucose 109 H (74-99) mg/dL POC Glucose (mg/dL) 141 H (70-110) mg/dL Calcium 8.0 L (8.4-10.2) mg/dL 06/04/23 06/05/23 Range/Units 19:55 06:11 WBC (3.8-10.6) k/uL RBC (4.30-5.90) m/uL Hgb (13.0-17.5) gm/dL Hct (39.0-53.0) % RDW (11.5-15.5) % Neutrophils # (1.3-7.7) k/uL Monocytes # (0-1.0) k/uL Carbon Dioxide (22-30) mmol/L BUN (9-20) mg/dL Creatinine (0.66-1.25) mg/dL Glucose (74-99) mg/dL POC Glucose (mg/dL) 120 H 123 H (70-110) mg/dL Calcium (8.4-10.2) mg/dL Diabetes panel 06/04/23 Range/Units 08:35 Sodium 140 (137-145) mmol/L Potassium 3.9 (3.5-5.1) mmol/L Chloride 102 (98-107) mmol/L Carbon Dioxide 32 H (22-30) mmol/L BUN 51 H (9-20) mg/dL Creatinine 1.56 H (0.66-1.25) mg/dL Glucose 109 H (74-99) mg/dL Calcium 8.0 L (8.4-10.2) mg/dL Calcium panel 06/04/23 Range/Units 08:35 Calcium 8.0 L (8.4-10.2) mg/dL Pituitary panel 06/04/23 Range/Units 08:35 Sodium 140 (137-145) mmol/L Potassium 3.9 (3.5-5.1) mmol/L Chloride 102 (98-107) mmol/L Carbon Dioxide 32 H (22-30) mmol/L BUN 51 H (9-20) mg/dL Creatinine 1.56 H (0.66-1.25) mg/dL Glucose 109 H (74-99) mg/dL Calcium 8.0 L (8.4-10.2) mg/dL Adrenal panel 06/04/23 Range/Units 08:35 Sodium 140 (137-145) mmol/L Potassium 3.9 (3.5-5.1) mmol/L Chloride 102 (98-107) mmol/L Carbon Dioxide 32 H (22-30) mmol/L BUN 51 H (9-20) mg/dL Creatinine 1.56 H (0.66-1.25) mg/dL Glucose 109 H (74-99) mg/dL Calcium 8.0 L (8.4-10.2) mg/dL - Imaging CT scan - abdomen: report reviewed, image reviewed CT scan - pelvis: report reviewed, image reviewed Assessment and Plan Assessment: Impression: Incomplete bladder emptying postoperatively. BPH with obstruction. Surgical repair of incarcerated hernia. Recommendations: Patient should continue with Flomax twice a day. We'll observe his voiding today now that he had a bowel movement see if it improves. If so nothing urologic will be required prior to discharge. If he struggles to void he may need a catheter till he recuperates. We will follow
[2023-06-05 11:55] LABS: Glucose,Whole Blood 104 mg/dL (70-110)
[2023-06-05 12:43] LABS: African American GFR (CKD) 65 (>60 ml/min/1.73 sqM); Anion Gap 4 mmol/L; Blood Urea Nitrogen 54 mg/dL (9-20); Calcium 8.1 mg/dL (8.4-10.2); Carbon Dioxide 32 mmol/L (22-30); Chloride 101 mmol/L (98-107); Glucose 90 mg/dL (74-99); HCT 34.3 % (39.0-53.0); Hypochromasia Slight; MCH 28.4 pg (25.0-35.0); MCV 88.7 fL (80.0-100.0); Mean Platelet Volume 9.9; Non-African American GFR(CKD) 57 (>60 ml/min/1.73 sqM); Platelet Count 196 k/uL (150-450); Potassium 4.3 mmol/L (3.5-5.1); RBC 3.87 m/uL (4.30-5.90); RDW 15.8 % (11.5-15.5); Sodium 137 mmol/L (137-145); WBC 16.6 k/uL (3.8-10.6)
[2023-06-05 13:31] LABS: Anisocytosis (M) Present; Band Neutrophils % 1 %; Eosinophils # (M) 0.17 k/uL (0-0.7); Lymphocytes # (M) 2.32 k/uL (1.0-4.8); Metamyelocytes # (M) 0.33 k/uL (0); Metamyelocytes % 2 %; Monocytes # (M) 1.33 k/uL (0-1.0); Myelocytes # (M) 0.83 k/uL (0); Myelocytes % 5 %; Neutrophils % (M) 71 %; Nucleated Red Blood Cells 0 /100 WBC (0-0); Total Cells Counted 200
--- NOTE | 2023-06-05 15:33 | P.PN ---
Subjective Progress Note Date: 06/05/23 CHIEF COMPLAINT: Bilateral inguinal hernia with incarcerated bowel HISTORY OF PRESENT ILLNESS: The patient is a 78-year-old male status post repair of recurrent bilateral inguinal nodes been seen by the urologist. He is tolerating diet. He is having bowel movements. He is having urinary retention. ROS: No reports of nausea and vomiting. Has bowel movements. No fevers or chills. No new chest pain. No productive sputum PHYSICAL EXAM: VITAL SIGNS: Reviewed CONSTITUTIONAL: Well developed and in no acute distress. EYES: Conjuctivae without sclera icterus. Extraocular movements grossly intact. HEAD, EARS, NOSE, THROAT: Moist buccal mucosa. Head is atraumatic, normocephalic. Hears conversational speech. No nasal drainage. RESPIRATORY: Non-labored respirations and equal bilateral excursions. CARDIOVASCULAR: Palpable 2+ radial pulses. ABDOMEN: Incisions clean dry intact. No recurrent hernia. MUSCULOSKELETAL: No gross deformity of the lower extremities noted. No clubbing. No cyanosis. SKIN: Good skin turgor. Well perfused. NEUROLOGIC: Cranial nerves II through XII grossly intact. No focal or lateralizing signs. PSYCH: Appropriate affect. Alert and oriented to person, place and time. CLINICAL LABS: Reviewed. ASSESSMENT: 1. Bilateral inguinal hernia with incarcerated bowel 2. Moderate to severe chronic struct of pulmonary disease PLAN: 1. Clinically he has done remarkably well following his hernia surgery 2. Stable for discharge from surgical standpoint when medically cleared 3. Lifting restrictions of 4 pounds in 4 weeks, until July 03 4. Recommend bowel regimen to prevent constipation for optimal postoperative recovery 5. Flomax for urinary retention Objective - Vital Signs Vital signs: Vital Signs Temp 98.1 F 06/05/23 09:05 Pulse 91 06/05/23 12:10 Resp 16 06/05/23 12:10 BP 130/66 06/05/23 12:10 Pulse Ox 100 06/05/23 12:10 FiO2 Intake & Output 06/04/23 06/05/23 06/05/23 18:59 06:59 18:59 Intake Total 1538 240 720 Output Total 425 1020 350 Balance 1113 -780 370 Intake: Oral 1538 240 720 Output: Urine 425 540 Straight 400 440 Post Void Residual 480 350 Other: Voiding Method Indwelling Catheter Urinal Urinal # Voids 1 1 # Bowel Movements 1 - Labs CBC & Chem 7: 03/03/24 12:05 06/05/23 12:05 Labs: Abnormal Lab Results - Last 24 Hours (Table) 06/04/23 06/05/23 06/05/23 Range/Units 19:55 06:11 12:05 WBC 16.6 H (3.8-10.6) k/uL RBC 3.87 L (4.30-5.90) m/uL Hgb 11.0 L (13.0-17.5) gm/dL Hct 34.3 L (39.0-53.0) % RDW 15.8 H (11.5-15.5) % Neutrophils # (Manual) 11.90 H (1.3-7.7) k/uL Monocytes # (Manual) 1.33 H (0-1.0) k/uL Metamyelocytes # (Man) 0.33 H (0) k/uL Myelocytes # (Manual) 0.83 H (0) k/uL Carbon Dioxide (22-30) mmol/L BUN (9-20) mg/dL POC Glucose (mg/dL) 120 H 123 H (70-110) mg/dL Calcium (8.4-10.2) mg/dL 06/05/23 Range/Units 12:05 WBC (3.8-10.6) k/uL RBC (4.30-5.90) m/uL Hgb (13.0-17.5) gm/dL Hct (39.0-53.0) % RDW (11.5-15.5) % Neutrophils # (Manual) (1.3-7.7) k/uL Monocytes # (Manual) (0-1.0) k/uL Metamyelocytes # (Man) (0) k/uL Myelocytes # (Manual) (0) k/uL Carbon Dioxide 32 H (22-30) mmol/L BUN 54 H (9-20) mg/dL POC Glucose (mg/dL) (70-110) mg/dL Calcium 8.1 L (8.4-10.2) mg/dL
[2023-06-05 16:09] LABS: Glucose,Whole Blood 104 mg/dL (70-110)
--- NOTE | 2023-06-05 16:20 | P.PN ---
Subjective Progress Note Date: 06/05/23 This is a 78-year-old male patient with known history of advanced COPD maintained on Symbicort and Combivent on outpatient basis and the patient has home O2 has been on oxygen for the past 6 months. His baseline FEV1 is in order of 20% of predicted. The patient also has issues with inguinal hernia. The patient underwent repair of inguinal hernia back in 12/09/2022. He presented to the hospital because of abdominal pain. CAT scan of the abdomen and pelvis was done on 05/28/2023 and it showed a left inguinal hernia containing portions of the redundant sigmoid colon and scattered colonic diverticuli. There is also some limited airspace disease involving the left lung base along with advanced and severe emphysematous changes bilaterally and there is also a chronically noted aortic dissection in the inferior aspect of the intrathoracic aorta just behind the previously inserted aortic stent graft and this dissection extends to the level of bifurcation. The patient is having bowel movements. In fact he was having some loose liquidy diarrhea. His white cell count was 27 at time of admission dropped down to 17.4. Hemoglobin 11.3 and the platelet count is 176. He has chronic kidney disease with a BUN of 44 and creatinine 1.6 and his sodium level is at 138 with a potassium level of 4.6. No fever. Currently is on 1 and half liters of oxygen by nasal cannula with a pulse ox of 99%. The chest x-ray is not showing any acute abnormalities. There are some interstitial density in the left lung base. The patient is currently on bronchodilators and steroids as the patient is also having increased dyspnea and he does have some signs of COPD exacerbation. No nausea. No emesis. No altered mentation. On today's evaluation of 05/31/2023, I am seeing the patient for a follow-up. The patient has advanced COPD maintained on Symbicort and Combivent on outpatient basis. The patient also has had difficulty with a incarcerated left inguinal hernia. The plan is to proceed with surgery and surgery has been tentatively planned to be done on 06/02/2023. Clinically the patient is feeling better. Less short of breath. Responding to the combination of bronchodilators and steroids. The patient is currently on IV Solu-Medrol 40 mg every 12 hours. He is also on DuoNeb updrafts and Symbicort. He is using the incentive spirometer. No fever or chills. No significant sputum production. No chest pain. No new labs are available from today. The viral screen was negative. On today's evaluation of 06/01/2023, the patient is feeling stable and he has no new complaints. No interval worsening shortness of breath. No interval worsening of abdominal pain. He is stooling. He is scheduled to undergo a repair of an incarcerated hernia within the next 24 to 48 hours. Remains on D uoNeb updrafts, Symbicort as maintenance and IV Solu-Medrol. He is currently on 40 mg of IV Solu-Medrol every 12 hours. No new labs are available from today. Oxygenation remained stable and the patient is currently on 1.5 L with a pulse ox of 98%. He is using incentive spirometer. On 06/02/2023, the patient is stable. No interval worsening shortness of breath. Remains on IV Solu-Medrol. Remains on Symbicort. Remains on DuoNeb. Using incentive spirometer. The plan is to proceed with repair of a inguinal hernia and this will be done by general surgery tomorrow. Remains on normal citrate at 50 cc an hour. The blood work was reviewed. The white cell count is down to 12 with a hemoglobin of 11 and a platelet count of 178. BUN is 51 with a creatinine of 1.4 and sodium levels at 137. At this point, the patient is on 1.5 L of O2 nasal cannula with a pulse ox of 98%. The patient is being seen on follow-up on 06/03/2023. The patient is scheduled to undergo surgery today. The patient has recurrent bilateral inguinal hernias and the patient will need surgical intervention. Overall respiratory status is stable. I saw the patient prior to him being taken to the operating room. R carlosins on bronchodilators. Remains on Symbicort. Remains on IV Solu-Medrol 40 mg every 12 hours. Labs from today are stable with a white cell count of 14, hemoglobin 11.9 and platelet count of 183. The BUN is a 65 with a creatinine of 1.53. The patient remains on O2 and he is currently on 2 L which was weaned down to 1 L nasal cannula with a pulse ox of 99%. He is afebrile and hemodynamically stable at this point in time. On today's evaluation of 06/04/2023, the patient is being seen for a follow-up. Note that the patient underwent bilateral inguinal hernia repair and this was done under general anesthesia. The patient had was found to have a incarcerated sigmoid colon along the left inguinal canal. The patient's right inguinal canal had indirect involving posterior fold of the cecum. No evidence of any appendicitis. There was sigmoid diverticulosis. Surgery was done and the p atient is currently resting comfortably in bed. Surgical wound site is dry clean and intact and the patient is currently on 2 L of O2 with a pulse ox of 96%. Using incentive spirometer. Using Symbicort as maintenance and DuoNeb updrafts. The patient remains on Solu-Medrol 40 mg every 12 hours. No altered mentation. No chest pain. No other new complaints. Hemodynamically stable. On today's evaluation of 06/05/2023, the patient is doing well. The patient is postop day #2. No respiratory difficulties. No cough or sputum production. Resting comfortably in bed. Passing flatus. Passing bowel movements. Remains on DuoNeb nebulized treatments [id number]. Remains on IV Solu-Medrol 40 mg every 12 hours. Abdominal wound is dry clean and intact. Labs show a WBC count of 16, hemoglobin of 11 and a platelet count of 196. Creatinine is stable at 1.24 with a BUN of 54 and a sodium levels at 137. The patient remains on O2 at 2 L/min nasal cannula. He is using incentive spirometer. No significant respite difficulties at this point in time. No altered mentation. Doing well. Objective - Vital Signs Vital signs: Vital Signs Temp 98.0 F 06/05/23 04:00 Pulse 76 06/05/23 08:48 Resp 21 06/05/23 04:00 BP 122/69 06/05/23 04:00 Pulse Ox 93 L 06/05/23 04:00 FiO2 Intake & Output 06/04/23 06/05/23 06/05/23 18:59 06:59 18:59 Intake Total 1538 240 480 Output Total 425 1020 Balance 1113 -780 480 Intake: Oral 1538 240 480 Output: Urine 425 540 Straight 400 440 Post Void Residual 480 Other: Voiding Method Indwelling Catheter Urinal # Voids 1 - Exam GENERAL EXAM: Alert, 78-year-old white male, comfortable in no apparent distress. Walker at bedside. The patient is currently on 2 L of oxygen by nasal cannula pulse ox of 99% HEAD: Normocephalic and atraumatic EYES: Normal reaction of pupils, equal size. NOSE: Clear with pink turbinates. THROAT: No erythema or exudates. NECK: No masses, no JVD. CHEST: No chest wall deformity. LUNGS: Equal air entry with end expiratory wheezes with forced expiratory maneuver. No crackles, rhonchi, or focal dullness. Breath sounds are marked di minished bilaterally. No conversational dyspnea or accessory muscle use while at rest.. CVS: S1 and S2 normal with no audible murmur, regular rhythm. No extra heart sounds ABDOMEN: No hepatosplenomegaly, active bowel sounds, no guarding or rigidity. SPINE: No scoliosis or deformity SKIN: No rashes CENTRAL NERVOUS SYSTEM: No focal deficits, tone is normal in all 4 extremities. EXTREMITIES: There is no peripheral edema, clubbing, or cyanosis. Peripheral pulses are intact. - Labs CBC & Chem 7: 06/05/23 12:05 06/05/23 12:05 Labs: Abnormal Lab Results - Last 24 Hours (Table) 06/04/23 06/04/23 06/05/23 Range/Units 11:32 19:55 06:11 POC Glucose (mg/dL) 141 H 120 H 123 H (70-110) mg/dL Assessment and Plan Plan: Acute on chronic dyspnea part today to his COPD. The patient respite status is stable. Acute dyspnea has recovered and the patient is back to his baseline. Incarcerated left inguinal hernia with secondary abdominal pain. The patient is status post bilateral inguinal hernia repair and the patient is postop day #2, passing flatus, passing bowel movements Chronic hypoxic respiratory failure the patient is currently on 2 L of O2 nasal cannula Incarcerated left inguinal hernia with secondary abdominal pain. The patient has no signs of any bowel obstruction. Still having bowel movements on a regular basis. General surgery is on the case, Clinically stable awaiting surgery to be done on 06/03/2023 Possible acute gastroenteritis/diarrhea History of bilateral incarcerated inguinal hernia repairs 12/09/2022 Acute leukocytosis, improving Acute exacerbation of COPD, with secondary shortness of breath Chronic obstructive pulmonary disease, with a FEV1 of 20% of pred, and the patient is on Symbicort and combivent and he has been on 02 at 1.5 liters/min History of greater than 50 years smoking, quit March 2022 Chronic kidney disease stage III, stable renal function History of neurogenic bladder History of thoracic aortic aneurysm/aortic valve repair at [facility] May 2018, and the patient has chronic dissection in the aorta below the Endo vascular stent graft extending to the level of the bifurcation of the aorta. Hypertension Hyperlipidemia History of depression Plan: Patient is post bilateral inguinal hernia repair under general anesthesia without any pulmonary complications. Passing flatus., Passing bowel movements. Surgical wound is clean Respiratory status is stable Encourage use of incentive spirometer Agree on DuoNeb nebulized treatments [id number] Continue Symbicort IV Solu-Medrol 40 mg every 12 hours and this will be continued the same dose, to be switched to prednisone burst taper at time of discharge. Patient negative for influenza, RSV, COVID Will continue to follow Will monitor his pulm progress closely. Prognosis in general poor secondary above-mentioned comorbidities.
--- NOTE | 2023-06-05 19:48 | P.PN ---
Progress Note - Text Progress Note Date: 06/05/23 The patient was unable to void adequately today. A catheter was replaced with>725 ml urine. From a urological standpoint he can go home with the catheter and fu with Dr Valles in 10 days
[2023-06-05 20:07] LABS: Glucose,Whole Blood 159 mg/dL (70-110)
--- NOTE | 2023-06-06 06:37 | P.PN ---
Subjective Progress Note Date: 06/05/23 HISTORY OF PRESENT ILLNESS: History of present illness; patient 78-year-old male patient with a history of chronic obstructive pulmonary disease, former smoker, daily alcohol use, gastroesophageal reflux disease, hypertension, hyperlipidemia, neuromuscular dysfunction and the bladder,, previous thoracic aortic aneurysm repair for aortic valve repair, chronic aortic dissection who presented to the ER for abdominal pain. Stated he was all right yesterday when after eating [place] food he started having abdominal pain. Abdominal pain was initially generalized but later on progressed to involve the left lower quadrant. Patient also having profuse diarrhea, stools were watery in consistency, no blood in it. There was complaint of nausea and vomiting. Denied any fever but was complaining of chills. There was no complaint of orthopnea or PND. There was no cough no nyla st pain or shortness of breath. Patient thinks all this is secondary to him eating tacos and does not think they are most hygienic. Because abdominal pain, patient came to the ER. CT abdominal pelvis done showed redemonstration of aortic dissection extending from the inferior aspect of the intrathoracic stent graft to the aortic bifurcation. Left lower lung opacities correlate for pneumonia. Left inguinal hernia containing portion of redundant sigmoid colon. Patient was seen general surgery despite having this hernia repair 6 months ago looks like there is a relapse hernia need to be repaired. The patient is hemodynamically stable at this point with history of mild COPD, mild congestive heart failure and history of EtOH. Patient will be stabilized and probably eventually go for surgery. 05-30-2023: Patient is feeling slightly better continue having slight pain and discomfort consult pulmonary review cardiovascular testing patient seen cardiology see when was the last echocardiogram plan for clearance and getting patient ready probably for surgery. 05-31-2023: Patient is feeling better, significantly decreasing abdominal pain and discomfort. He was seen and evaluated by vascular, cardiology, and pulmonary try to optimize his medical management and the plan is to go for robo tic bilateral hernia repair again on 06-02-2023. Will review his labs today, increase physical activity with physical therapy, awaiting for surgery in the next 48 hours. Patient in the meanwhile stable doing well. The exception of his slight decline in kidney function with creatinine is up to 1.60 his white blood cell is down 17.4, blood sugar still mildly elevated being managed currently. Pulmonary dejesus with his FEV1 only 20 percentile patient was started on Solu-Medrol 40 mg every 12 hours given the the possibility that patient might require mechanical ventilation with surgery the patient is aware if it is willing to. The details of his aneurysm repair at [facility] years ago that he had stable dissection does not require any attention at this point just to monitor his blood pressure and keep it under control. On last at least Cardiology are aware of patient comorbidity his echocardiogram is recent did not require any repeat echo at this point just to maximize his medical management and he will be ready for surgery. 06-01-2023: Patient is doing well he is ready for surgery tomorrowWas cleared by vascular, pulmonary and cardiology. His ability to do anything physical is very limited at this point patient is extremely out of breath with minimal exertion. He has got worse on physical therapy and Occupational Therapy afterward. He still having significant pain discomfort in the groin area and lower abdominal region area which make it not easy for patient to leave the hospital and to come back within a week for the surgery because out of incarceration is very high at this point. 06-02-2023: Patient is stable was post to have surgery today apparently scheduled for tomorrow first thing in the morning. He still seen by cardiology and pulmonary patient is very stable medically still on DuoNeb along with Medrol IV shortness of breath is improved to require 1.5 L of O2 to keep him at 97 percentile. Mobility still significantly decreased and patient required physical therapy shortly after surgery. Again has a plan to go for surgery testing tomorrow morning and patient is medically stable no need for any other testing or management before the surgery. Kidney function remains at stage III chronic kidney disease will continue hydration and watch his urine output. 06-03-2023: Patient is going for surgery finally today feeling well he is stable on current dose of oxygen at 1 L he is running around 98 percentile, pain is under controlled, lower abdominal discomfort with his hernia settled down quite a bit. The patient was cleared by cardiology as well. 06-04-2023: Patient is doing well he wants to go home today we will finalize his medication still pending on surgical approval for him to be discharged same time patient still have Guzman catheter in which will be removed to make sure patient is able to void on his own before he is discharged. Apparently patient does not have any rehab he will do home care and physical therapy. REVIEW OF SYSTEMS: CONSTITUTIONAL: Very thin and looks malnourished in no respiratory distress EYES: No icterus sclerae, no conjunctivitis. EARS, NOSE, MOUTH, THROAT, and FACE: No sore throat, lymphadenopathy, carotid bruits or deformity. RESPIRATORY: Mild shortness of cough and wheezes. CARDIOVASCULAR: History of mild congestive heart failure no chest pain or angina PND orthopnea or palpitation. GASTROINTESTINAL: Positive abdominal pain with nausea no vomiting still having stool. GENITOURINARY: Negative for Hematuria or UTI, no kidney stones. INTEGUMENT/BREAST: Negative for any muscular injury with mild osteoarthritis.. HEMATOLOGIC/LYMPHATIC: Negative for bleed or purpura. MUSCULOSKELTAL: Negative for Myalgia or arthralgia. NEURLOGICAL: No LOC, Sz or syncope, blurred vision dizziness or abnormality.. BEHAVIORAL/PSYCH: Negative. ENDOCRINE: Negative. PHYSICAL EXAMINATION: General Appearance: Alert, cooperative, no distress, looks older than his age and quite thin and malnourished. Neck HEENT: Supple, no lymphadenopathy, no thyroid enlargement, no carotid bruits. Lungs: Decreased breath sound bilaterally with rhonchi positive mild expiratory wheezes. Chest Wall: Decreased expansion with deep inspiration no tenderness and no deformity was found on exam, no costochondral pain or discomfort. Heart: Regular rate and rhythm, S1, S2 normal, no murmur, rub or gallop. Back: Symmetric, no curvature, ROM normal, no CVA tenderness. Abdomen: Significant tenderness and discomfort lower abdominal region area mostly on the left side with no rebound or rigidity. Extremities: Extremities normal, atraumatic, no cyanosis or edema. Pulses: 2+ and symmetric. Skin: Skin color, texture, tugor normal, no rashes or lesions. Neurologic: Alert oriented x3 cranial nerves II through XII intact, no motor deficit, no abnormal balance or gait. ASSESSMENT AND PLAN: _Severe abdominal pain: Bilateral relapse hernia repair from few months ago he will be required to go for another surgery. For bilateral robotic repair, he is going for robotic surgery today. _Severe COPD: Remain on DuoNeb and Pulmicort still on Solu-Medrol 40 mg every 12 hours pulmonary consultation continue O2 titrate To keep pulse ox above 92%. His FEV1 is 20 percentile patient might require mechanical ventilation after surgery. Pulmonary Daily the patient lung status has been to an analysis follow-up to go for surgery with all possibility of more complication patient potential of end up on the ventilator is very high. _ Mild congestive heart failure: Has been on spironolactone, lisinopril, metopr olol and furosemide resume medication will consult cardiology review last echocardiogram see if patient need to have any further testing before surgery. _ Chronic kidney disease stage III with acute kidney injury, continue hydration lower any nephrotoxic agent at this point. Repeat kidney function with labs tomorrow. Kidney function is slightly down continue hydration continue to watch for any urinary retention. _ Leukocytosis: Is probably affected by steroid at this point white blood cell is not any worse. _ Anemia: Mostly iron deficiency will look for any acute bleed continue pantoprazole for GI prophylaxis watch for any decline in hemoglobin in the next 24 hours. No decline in hemoglobin still very stable. _ BPH: No sign of any urinary retention continue Flomax. Planning: After his surgery is done patient wants to go home which hopefully will be done today waiting for him to see general surgery and pending on being able to void after removing his catheter and able to move safely on his own. Make sure to continue alpha-ross for BPH especially with the swelling around his hernia surgery causing him to have retention. Objective - Vital Signs Vital signs: Vital Signs Temp 98.1 F 06/06/23 04:00 Pulse 92 06/06/23 04:00 Resp 17 06/06/23 04:00 BP 113/64 06/06/23 04:00 Pulse Ox 97 06/06/23 04:00 FiO2 Intake & Output 06/05/23 06/05/23 06/06/23 06:59 18:59 06:59 Intake Total 240 960 Output Total 1020 1775 1300 Balance -780 -815 -1300 Intake: Oral 240 960 Output: Urine 867 884 8369 Straight 440 Post Void Residual 480 1075 Other: Voiding Method Urinal Urinal Indwelling Catheter # Voids 1 # Bowel Movements 1 - Labs CBC & Chem 7: 06/05/23 12:05 06/05/23 12:05 Labs: Abnormal Lab Results - Last 24 Hours (Table) 06/05/23 06/05/23 06/05/23 Range/Units 12:05 12:05 20:05 WBC 16.6 H (3.8-10.6) k/uL RBC 3.87 L (4.30-5.90) m/uL Hgb 11.0 L (13.0-17.5) gm/dL Hct 34.3 L (39.0-53.0) % RDW 15.8 H (11.5-15.5) % Neutrophils # (Manual) 11.90 H (1.3-7.7) k/uL Monocytes # (Manual) 1.33 H (0-1.0) k/uL Metamyelocytes # (Man) 0.33 H (0) k/uL Myelocytes # (Manual) 0.83 H (0) k/uL Carbon Dioxide 32 H (22-30) mmol/L BUN 54 H (9-20) mg/dL POC Glucose (mg/dL) 159 H (70-110) mg/dL Calcium 8.1 L (8.4-10.2) mg/dL
[2023-06-06 11:24] LABS: Glucose,Whole Blood 110 mg/dL (70-110)
[2023-06-06 12:34] VITALS: RESP 18
--- NOTE | 2023-06-06 14:06 | P.PN ---
Subjective Progress Note Date: 06/06/23 CHIEF COMPLAINT: Left lower quadrant abdominal pain HISTORY OF PRESENT ILLNESS: Patient is postop day #3 status post robotic laparoscopic lysis of adhesions and repair of incarcerated recurrent bilateral i nguinal hernias with mesh. Patient sitting up at bedside chair. He reports his pain is controlled. Denies any nausea or vomiting. Having bowel movements. Tolerating regular diet. Afebrile. PHYSICAL EXAM: VITAL SIGNS: Reviewed GENERAL: Well-developed in no acute distress. HEENT: No sclera icterus. Extraocular movements grossly intact. Moist buccal mucosa. Head is atraumatic, normocephalic. Hears conversational speech. No nasal drainage. NECK: Supple without lymphadenopathy. CHEST: Non-labored respirations and equal bilateral excursions. CARDIOVASCULAR: Palpable 2+ radial pulses. ABDOMEN: Soft. Nondistended. Nontender. Incision sites clean dry and intact MUSCULOSKELETAL: No clubbing or cyanosis. NEUROLOGIC: No focal or lateralizing signs. Cranial nerves II through XII grossly intact. PSYCH: Appropriate affect. Alert and oriented to person, place and time. SKIN: Well perfused. Good skin turgor. ASSESSMENT: 1. Bilateral inguinal hernias, recurrent, incarcerated 2. Severe chronic obstructive pulmonary disease 3. Left recurrent inguinal hernia with incarceration sigmoid colon 4. Underweight 5. Steroid-dependent chronic obstructive pulmonary disease 6. Hypertensive heart disease with congestive heart failure 7. Gastroesophageal reflux disease 8. Iron deficiency anemia 9. Neurogenic bladder 10. Ischemic cardiomyopathy 11. History of myocardial infarction 12. Bilateral pelvic adhesions 13. Sigmoid diverticulosis PLAN: -Patient can be discharged from surgical standpoint -Lifting restrictions of 4 pounds in 4 weeks, until July 03 -Recommend bowel regimen to prevent constipation for optimal postoperative recovery -Flomax for urinary retention Physician Delivery Table Operator note has been reviewed by physician. Signing provider agrees with the documented findings, assessment, and plan of care. Objective - Vital Signs Vital signs: Vital Signs Temp 99.4 F 06/06/23 08:30 Pulse 90 06/06/23 09:03 Resp 20 06/06/23 08:30 BP 110/55 06/06/23 08:30 Pulse Ox 95 06/06/23 08:30 FiO2 Intake & Output 06/05/23 06/06/23 06/06/23 18:59 06:59 18:59 Intake Total 960 240 Output Total 1775 1300 200 Balance -815 -1300 40 Intake: Oral 960 240 Output: Urine 700 1300 200 Post Void Residual 1075 Other: Voiding Method Urinal Indwelling Catheter Indwelling Catheter # Voids 1 1 # Bowel Movements 1 - Labs CBC & Chem 7: 06/05/23 12:05 06/05/23 12:05 Labs: Abnormal Lab Results - Last 24 Hours (Table) 06/05/23 06/05/23 06/05/23 Range/Units 12:05 12:05 20:05 WBC 16.6 H (3.8-10.6) k/uL RBC 3.87 L (4.30-5.90) m/uL Hgb 11.0 L (13.0-17.5) gm/dL Hct 34.3 L (39.0-53.0) % RDW 15.8 H (11.5-15.5) % Neutrophils # (Manual) 11.90 H (1.3-7.7) k/uL Monocytes # (Manual) 1.33 H (0-1.0) k/uL Metamyelocytes # (Man) 0.33 H (0) k/uL Myelocytes # (Manual) 0.83 H (0) k/uL Carbon Dioxide 32 H (22-30) mmol/L BUN 54 H (9-20) mg/dL POC Glucose (mg/dL) 159 H (70-110) mg/dL Calcium 8.1 L (8.4-10.2) mg/dL
--- NOTE | 2023-06-06 16:11 | P.PN ---
Subjective Progress Note Date: 06/06/23 Principal diagnosis: Incarcerated left inguinal hernia with severe COPD and acute exacerbation This is a 78-year-old male patient with known history of advanced COPD maintained on Symbicort and Combivent on outpatient basis and the patient has home O2 has been on oxygen for the past 6 months. His baseline FEV1 is in order of 20% of predicted. The patient also has issues with inguinal hernia. The patient underwent repair of inguinal hernia back in 12/09/2022. He presented to the hospital because of abdominal pain. CAT scan of the abdomen and pelvis was done on 05/28/2023 and it showed a left inguinal hernia containing portions of the redundant sigmoid colon and scattered colonic diverticuli. There is also some limited airspace disease involving the left lung base along with advanced and severe emphysematous changes bilaterally and there is also a chronically noted aortic dissection in the inferior aspect of the intrathoracic aorta just behind the previously inserted aortic stent graft and this dissection extends to the level of bifurcation. The patient is having bowel movements. In fact he was having some loose liquidy diarrhea. His white cell count was 27 at time of admission dropped down to 17.4. Hemoglobin 11.3 and the platelet count is 176. He has chronic kidney disease with a BUN of 44 and creatinine 1.6 and his sodium level is at 138 with a potassium level of 4.6. No fever. Currently is on 1 and half liters of oxygen by nasal cannula with a pulse ox of 99%. The chest x-ray is not showing any acute abnormalities. There are some interstitial density in the left lung base. The patient is currently on bronchodilators and steroids as the patient is also having increased dyspnea and he does have some signs of COPD exacerbation. No nausea. No emesis. No altered mentation. On today's evaluation of 05/31/2023, I am seeing the patient for a follow-up. The patient has advanced COPD maintained on Symbicort and Combivent on outpatient basis. The patient also has had difficulty with a incarcerated left inguinal hernia. The plan is to proceed with surgery and surgery has been tentatively planned to be done on 06/02/2023. Clinically the patient is feeling better. Less short of breath. Responding to the combination of bronchodilators and steroids. The patient is currently on IV Solu-Medrol 40 mg every 12 hours. He is also on DuoNeb updrafts and Symbicort. He is using the incentive spirometer. No fever or chills. No significant sputum production. No chest pain. No new labs are available from today. The viral screen was negative. On today's evaluation of 06/01/2023, the patient is feeling stable and he has no new complaints. No interval worsening shortness of breath. No interval worsening of abdominal pain. He is stooling. He is scheduled to undergo a repair of an incarcerated hernia within the next 24 to 48 hours. Remains on DuoNeb updrafts, Symbicort as maintenance and IV Solu-Medrol. He is currently on 40 mg of IV Solu-Medrol every 12 hours. No new labs are available from today. Oxygenation remained stable and the patient is currently on 1.5 L with a pulse ox of 98%. He is using incentive spirometer. On 06/02/2023, the patient is stable. No interval worsening shortness of breath. Remains on IV Solu-Medrol. Remains on Symbicort. Remains on DuoNeb. Using incentive spirometer. The plan is to proceed with repair of a inguinal hernia and this will be done by general surgery tomorrow. Remains on normal citrate at 50 cc an hour. The blood work was reviewed. The white cell count is down to 12 with a hemoglobin of 11 and a platelet count of 178. BUN is 51 with a creatinine of 1.4 and sodium levels at 137. At this point, the patient is on 1.5 L of O2 nasal cannula with a pulse ox of 98%. The patient is being seen on follow-up on 06/03/2023. The patient is scheduled to undergo surgery today. The patient has recurrent bilateral inguinal hernias and the patient will need surgical intervention. Overall respiratory status is stable. I saw the patient prior to him being taken to the operating room. Remains on bronchodilators. Remains on Symbicort. Remains on IV Solu-Medrol 40 mg every 12 hours. Labs from today are stable with a white cell count of 14, hemoglobin 11.9 and platelet count of 183. The BUN is a 65 with a creatinine of 1.53. The patient remains on O2 and he is currently on 2 L which was weaned down to 1 L nasal cannula with a pulse ox of 99%. He is afebrile and hemodynamically stable at this point in time. On today's evaluation of 06/04/2023, the patient is being seen for a follow-up. Note that the patient underwent bilateral inguinal hernia repair and this was done under general anesthesia. The patient had was found to have a incarcerated sigmoid colon along the left inguinal canal. The patient's right inguinal canal had indirect involving posterior fold of the cecum. No evidence of any appendicitis. There was sigmoid diverticulosis. Surgery was done and the patient is currently resting comfortably in bed. Surgical wound site is dry cl rigo and intact and the patient is currently on 2 L of O2 with a pulse ox of 96%. Using incentive spirometer. Using Symbicort as maintenance and DuoNeb updrafts. The patient remains on Solu-Medrol 40 mg every 12 hours. No altered mentation. No chest pain. No other new complaints. Hemodynamically stable. On today's evaluation of 06/05/2023, the patient is doing well. The patient is postop day #2. No respiratory difficulties. No cough or sputum production. Resting comfortably in bed. Passing flatus. Passing bowel movements. Remains on DuoNeb nebulized treatments [id number]. Remains on IV Solu-Medrol 40 mg every 12 hours. Abdominal wound is dry clean and intact. Labs show a WBC count of 16, hemoglobin of 11 and a platelet count of 196. Creatinine is stable at 1.24 with a BUN of 54 and a sodium levels at 137. The patient remains on O2 at 2 L/min nasal cannula. He is using incentive spirometer. No significant respite difficulties at this point in time. No altered mentation. Doing well. Patient was reevaluated today on 06/06/2023, he is now postoperative day #3. Patient underwent uneventful surgery for incarcerated inguinal hernia, patient has severe underlying COPD, doing well surprisingly improving with bronchodilators and treatment as well as Solu-Medrol. Patient is on 2 L nasal cannula, O2 sat is 98%. Consider for discharge planning if cleared by surgery today. Objective - Vital Signs Vital signs: Vital Signs Temp 99.6 F 06/06/23 12:08 Pulse 88 06/06/23 15:57 Resp 18 06/06/23 12:08 BP 122/62 06/06/23 12:08 Pulse Ox 98 06/06/23 12:08 FiO2 Intake & Output 06/05/23 06/06/23 06/06/23 18:59 06:59 18:59 Intake Total 960 360 Output Total 1775 1300 200 Balance -815 -1300 160 Intake: Oral 960 360 Output: Urine 700 1300 200 Post Void Residual 1075 Other: Voiding Method Urinal Indwelling Catheter Indwelling Catheter # Voids 1 1 # Bowel Movements 1 - Exam General: The patient is awake and alert, in no distress, and does not appear acutely ill. 2 L nasal cannula Skin: Skin is warm and dry and no rashes or lesions are noted. Eye: Pupils are equal, round and reactive to light, extra-ocular movements are intact; there is normal conjunctiva bilaterally. Ears, nose, mouth and throat: There are moist mucous membranes and no oral lesions. Neck: The neck is supple, there is no tenderness or JVD. Cardiovascular: There is a regular rate and rhythm. No murmur, rub or gallop is appreciated. Respiratory: Diminished breath sound bilaterally no crackles rhonchi or wheezes Gastrointestinal: Soft, non-distended, non-tender abdomen without masses or organomegaly noted. There is no rebound or guarding present. Bowel sounds are unremarkable. Back: There is no tenderness to palpation in the midline. There is no obvious deformity. Musculoskeletal: Normal ROM, no tenderness, There is no pedal edema. There is no calf tenderness or swelling. No cords were appreciated. Neurological: CN II-XII intact, Cranial nerves III through XII are intact. There are no obvious motor or sensory deficits. Coordination appears grossly intact. Speech is normal. Psychiatric: Cooperative, appropriate mood & affect, normal judgment. - Labs CBC & Chem 7: 06/05/23 12:05 06/05/23 12:05 Labs: Abnormal Lab Results - Last 24 Hours (Table) 06/05/23 Range/Units 20:05 POC Glucose (mg/dL) 159 H (70-110) mg/dL Assessment and Plan Assessment: Impression: Incarcerated left inguinal hernia with secondary abdominal pain. Status post re pair postoperative day #3 Chronic hypoxic respiratory failure the patient is currently on 2 L of O2 nasal cannula History of bilateral incarcerated inguinal hernia Acute exacerbation of COPD, patient has severe COPD, Gold stage IV History of greater than 50 years smoking, quit March 2022 Chronic kidney disease stage III, stable renal function History of neurogenic bladder History of thoracic aortic aneurysm/aortic valve repair at [facility] May 2018, Hypertension Hyperlipidemia History of depression Recommendation: Continue present bronchodilators Continue incentive spirometry Consider discharge planning if cleared by surgery Patient to follow-up on outpatient basis regarding his COPD Time with Patient: Less than 30
[2023-06-06 17:04] VITALS: BP 110/69; PULSE 108; TEMP 99.4
--- NOTE | 2023-06-07 02:50 | P.PN ---
Subjective Progress Note Date: 06/06/23 HISTORY OF PRESENT ILLNESS: History of present illness; patient 78-year-old male patient with a history of chronic obstructive pulmonary disease, former smoker, daily alcohol use, gastroesophageal reflux disease, hypertension, hyperlipidemia, neuromuscular dysfunction and the bladder,, previous thoracic aortic aneurysm repair for aortic valve repair, chronic aortic dissection who presented to the ER for abdominal pain. Stated he was all right yesterday when after eating [place] food he started having abdominal pain. Abdominal pain was initially generalized but later on progressed to involve the left lower quadrant. Patient also having profuse diarrhea, stools were watery in consistency, no blood in it. There was complaint of nausea and vomiting. Denied any fever but was complaining of chills. There was no complaint of orthopnea or PND. There was no cough no nyla st pain or shortness of breath. Patient thinks all this is secondary to him eating tacos and does not think they are most hygienic. Because abdominal pain, patient came to the ER. CT abdominal pelvis done showed redemonstration of aortic dissection extending from the inferior aspect of the intrathoracic stent graft to the aortic bifurcation. Left lower lung opacities correlate for pneumonia. Left inguinal hernia containing portion of redundant sigmoid colon. Patient was seen general surgery despite having this hernia repair 6 months ago looks like there is a relapse hernia need to be repaired. The patient is hemodynamically stable at this point with history of mild COPD, mild congestive heart failure and history of EtOH. Patient will be stabilized and probably eventually go for surgery. 05-30-2023: Patient is feeling slightly better continue having slight pain and discomfort consult pulmonary review cardiovascular testing patient seen cardiology see when was the last echocardiogram plan for clearance and getting patient ready probably for surgery. 05-31-2023: Patient is feeling better, significantly decreasing abdominal pain and discomfort. He was seen and evaluated by vascular, cardiology, and pulmonary try to optimize his medical management and the plan is to go for robo tic bilateral hernia repair again on 06-02-2023. Will review his labs today, increase physical activity with physical therapy, awaiting for surgery in the next 48 hours. Patient in the meanwhile stable doing well. The exception of his slight decline in kidney function with creatinine is up to 1.60 his white blood cell is down 17.4, blood sugar still mildly elevated being managed currently. Pulmonary dejesus with his FEV1 only 20 percentile patient was started on Solu-Medrol 40 mg every 12 hours given the the possibility that patient might require mechanical ventilation with surgery the patient is aware if it is willing to. The details of his aneurysm repair at [facility] years ago that he had stable dissection does not require any attention at this point just to monitor his blood pressure and keep it under control. On last at least Cardiology are aware of patient comorbidity his echocardiogram is recent did not require any repeat echo at this point just to maximize his medical management and he will be ready for surgery. 06-01-2023: Patient is doing well he is ready for surgery tomorrowWas cleared by vascular, pulmonary and cardiology. His ability to do anything physical is very limited at this point patient is extremely out of breath with minimal exertion. He has got worse on physical therapy and Occupational Therapy afterward. He still having significant pain discomfort in the groin area and lower abdominal region area which make it not easy for patient to leave the hospital and to come back within a week for the surgery because out of incarceration is very high at this point. 06-02-2023: Patient is stable was post to have surgery today apparently scheduled for tomorrow first thing in the morning. He still seen by cardiology and pulmonary patient is very stable medically still on DuoNeb along with Medrol IV shortness of breath is improved to require 1.5 L of O2 to keep him at 97 percentile. Mobility still significantly decreased and patient required physical therapy shortly after surgery. Again has a plan to go for surgery testing tomorrow morning and patient is medically stable no need for any other testing or management before the surgery. Kidney function remains at stage III chronic kidney disease will continue hydration and watch his urine output. 06-03-2023: Patient is going for surgery finally today feeling well he is stable on current dose of oxygen at 1 L he is running around 98 percentile, pain is under controlled, lower abdominal discomfort with his hernia settled down quite a bit. The patient was cleared by cardiology as well. 06-04-2023: Patient is doing well he wants to go home today we will finalize his medication still pending on surgical approval for him to be discharged same time patient still have Guzman catheter in which will be removed to make sure patient is able to void on his own before he is discharged. Apparently patient does not have any rehab he will do home care and physical therapy. 06-05-2023 patient continue not been able to void seen urology had a Guzman cathete r decided to follow-up with Dr Valles in [address] through the e vening patient felt slightly shortness of breath mild increased cough generalized weakness slight change in blood pressure there is right apparently were not available end up staying in the hospital 20 06/06/2023. Reviewed his labs from today continue to show slight leukocytosis with white blood cell 16.6 his creatinine remained at 1.24 with BUN of 54 blood sugar still running good. REVIEW OF SYSTEMS: CONSTITUTIONAL: Very thin and looks malnourished in no respiratory distress EYES: No icterus sclerae, no conjunctivitis. EARS, NOSE, MOUTH, THROAT, and FACE: No sore throat, lymphadenopathy, carotid bruits or deformity. RESPIRATORY: Mild shortness of cough and wheezes. CARDIOVASCULAR: History of mild congestive heart failure no chest pain or angina PND orthopnea or palpitation. GASTROINTESTINAL: Positive abdominal pain with nausea no vomiting still having stool. GENITOURINARY: Negative for Hematuria or UTI, no kidney stones. INTEGUMENT/BREAST: Negative for any muscular injury with mild osteoarthritis.. HEMATOLOGIC/LYMPHATIC: Negative for bleed or purpura. MUSCULOSKELTAL: Negative for Myalgia or arthralgia. NEURLOGICAL: No LOC, Sz or syncope, blurred vision dizziness or abnormality.. BEHAVIORAL/PSYCH: Negative. ENDOCRINE: Negative. PHYSICAL EXAMINATION: General Appearance: Alert, cooperative, no distress, looks older than his age and quite thin and malnourished. Neck HEENT: Supple, no lymphadenopathy, no thyroid enlargement, no carotid bruits. Lungs: Decreased breath sound bilaterally with rhonchi positive mild expiratory wheezes. Chest Wall: Decreased expansion with deep inspiration no tenderness and no def ormity was found on exam, no costochondral pain or discomfort. Heart: Regular rate and rhythm, S1, S2 normal, no murmur, rub or gallop. Back: Symmetric, no curvature, ROM normal, no CVA tenderness. Abdomen: Significant tenderness and discomfort lower abdominal region area mostly on the left side with no rebound or rigidity. Extremities: Extremities normal, atraumatic, no cyanosis or edema. Pulses: 2+ and symmetric. Skin: Skin color, texture, tugor normal, no rashes or lesions. Neurologic: Alert oriented x3 cranial nerves II through XII intact, no motor deficit, no abnormal balance or gait. ASSESSMENT AND PLAN: _Severe abdominal pain: Post bilateral incarceration with worsening pain with loop of bowel stuck in the hernia site and up going for robotic surgery. _Severe COPD: Remain on DuoNeb and Pulmicort still on Solu-Medrol 40 mg every 12 hours pulmonary consultation continue O2 titrate To keep pulse ox above 92%. His FEV1 is 20 percentile patient might require mechanical ventilation after surgery. Pulmonary Daily the patient lung status has been to an analysis follow-up to go for surgery with all possibility of more complication patient potential of end up on the ventilator is very high. Will switch patient to oral prednisone when he goes home. _ Mild congestive heart failure: Has been on spironolactone, lisinopril, metoprolol and furosemide resume medication will consult cardiology review last echocardiogram see if patient need to have any further testing before surgery. _ Chronic kidney disease stage III with acute kidney injury, continue hydration lower any nephrotoxic agent at this point. Repeat kidney function with labs efra orrow. Kidney function is slightly down continue hydration continue to watch for any urinary retention. _ Leukocytosis: Is probably affected by steroid at this point white blood cell is not any worse. Still have to be followed as an outpatient. _ Anemia: Mostly iron deficiency will look for any acute bleed continue pantoprazole for GI prophylaxis watch for any decline in hemoglobin in the next 24 hours. No decline in hemoglobin still very stable. _ BPH: No sign of any urinary retention continue Flomax. _Urinary retention: Required Guzman catheter is probably happened because of the swelling from his surgical site in the pelvic area had compressed the bladder and create more attention will be arrested with Guzman catheter for the next 10 days while he is on Flomax and see neurology as outpatient plan to remove the catheter as an outpatient. Planning: Patient still debilitated, having slight shortness of breath, having problem managing his catheter despite all of the above he still insist on going home with home care and home health. Objective - Vital Signs Vital signs: Vital Signs Temp 98.1 F 06/06/23 04:00 Pulse 92 06/06/23 04:00 Resp 17 06/06/23 04:00 BP 113/64 06/06/23 04:00 Pulse Ox 97 06/06/23 04:00 FiO2 Intake & Output 06/05/23 06/05/23 06/06/23 06:59 18:59 06:59 Intake Total 240 960 Output Total 1028 7053 5612 Balance -379 -208 -8567 Intake: Oral 240 960 Output: Urine 982 975 3605 Straight 440 Post Void Residual 480 1075 Other: Voiding Method Urinal Urinal Indwelling Catheter # Voids 1 # Bowel Movements 1 - Labs CBC & Chem 7: 06/05/23 12:05 06/05/23 12:05 Labs: Abnormal Lab Results - Last 24 Hours (Table) 06/05/23 06/05/23 06/05/23 Range/Units 12:05 12:05 20:05 WBC 16.6 H (3.8-10.6) k/uL RBC 3.87 L (4.30-5.90) m/uL Hgb 11.0 L (13.0-17.5) gm/dL Hct 34.3 L (39.0-53.0) % RDW 15.8 H (11.5-15.5) % Neutrophils # (Manual) 11.90 H (1.3-7.7) k/uL Monocytes # (Manual) 1.33 H (0-1.0) k/uL Metamyelocytes # (Man) 0.33 H (0) k/uL Myelocytes # (Manual) 0.83 H (0) k/uL Carbon Dioxide 32 H (22-30) mmol/L BUN 54 H (9-20) mg/dL POC Glucose (mg/dL) 159 H (70-110) mg/dL Calcium 8.1 L (8.4-10.2) mg/dL
--- NOTE | 2023-06-07 02:54 | P.DS ---
Providers Date of admission: 05/31/23 10:23 Attending physician: Agus Solano Consults: 05/28/23 19:25 Consult Physician Routine Consulting Provider: Delma Roberts Consult Reason/Comments: abdominal pain, leukocytosis Do you want consulting provider notified?: Yes 05/29/23 13:12 Consult Physician Routine Consulting Provider: Jose Cruz Grover Consult Reason/Comments: cardiac risk assessment Do you want consulting provider notified?: Yes 05/29/23 13:13 Consult Physician Routine Consulting Provider: Modesto Kowalski Consult Reason/Comments: COPD exacerbation pulmonary assessment Do you want consulting provider notified?: Yes 06/03/23 06:22 Consult Physician Routine Consulting Provider: [facility] Consult Reason/Comments: Regional block Do you want consulting provider notified?: Yes Primary care physician: [facility] Course: HISTORY OF PRESENT ILLNESS: History of present illness; patient 78-year-old male patient with a history of chronic obstructive pulmonary disease, former smoker, daily alcohol use, gastroesophageal reflux disease, hypertension, hyperlipidemia, neuromuscular dysfunction and the bladder,, previous thoracic aortic aneurysm repair for aortic valve repair, chronic aortic dissection who presented to the ER for abdominal pain. Stated he was all right yesterday when after eating [place] food he started having abdominal pain. Abdominal pain was initially generalized but later on progressed to involve the left lower quadrant. Patient also having profuse diarrhea, stools were watery in consistency, no blood in it. There was complaint of nausea and vomiting. Denied any fever but was complaining of chills. There was no complaint of orthopnea or PND. There was no cough no chest pain or shortness of breath. Patient thinks all this is secondary to him eating tacos and does not think they are most hygienic. Because abdominal pain, patient came to the ER. CT abdominal pelvis done showed redemonstration of aortic dissection extending from the inferior aspect of the intrathoracic stent graft to the aortic bifurcation. Left lower lung opacities correlate for pneumonia. Left inguinal hernia containing portion of redundant sigmoid colon. Patient was seen general surgery despite having this hernia repair 6 months ago looks like there is a relapse hernia need to be repaired. The patient is hemodynamically stable at this point with history of mild COPD, mild congestive heart failure and history of EtOH. Patient will be stabilized and probably eventually go for surgery. 05-30-2023: Patient is feeling slightly better continue having slight pain and discomfort consult pulmonary review cardiovascular testing patient seen cardiology see when was the last echocardiogram plan for clearance and getting patient ready probably for surgery. 05-31-2023: Patient is feeling better, significantly decreasing abdominal pain and discomfort. He was seen and evaluated by vascular, cardiology, and p tessamonary try to optimize his medical management and the plan is to go for robotic bilateral hernia repair again on 06-02-2023. Will review his labs today, increase physical activity with physical therapy, awaiting for surgery in the next 48 hours. Patient in the meanwhile stable doing well. The exception of his slight decline in kidney function with creatinine is up to 1.60 his white blood cell is down 17.4, blood sugar still mildly elevated being managed currently. Pulmonary dejesus with his FEV1 only 20 percentile patient was started on Solu-Medrol 40 mg every 12 hours given the the possibility that patient might require mechanical ventilation with surgery the patient is aware if it is willing to. The details of his aneurysm repair at [facility] years ago that he had stable dissection does not require any attention at this point just to monitor his blood pressure and keep it under control. On last at least Cardiology are aware of patient comorbidity his echocardiogram is recent did not require any repeat echo at this point just to maximize his medical management and he will be ready for surgery. 06-01-2023: Patient is doing well he is ready for surgery tomorrowWas cleared by vascular, pulmonary and cardiology. His ability to do anything physical is very limited at this point patient is extremely out of breath with minimal exertion. He has got worse on physical therapy and Occupational Therapy afterward. He still having significant pain discomfort in the groin area and lower abdominal region area which make it not easy for patient to leave the hospital and to come back within a week for the surgery because out of incarceration is very high at this point. 06-02-2023: Patient is stable was post to have surgery today apparently scheduled for tomorrow first thing in the morning. He still seen by cardiology and pulmonary patient is very stable medically still on DuoNeb along with Medrol IV shortness of breath is improved to require 1.5 L of O2 to keep him at 97 percentile. Mobility still significantly decreased and patient required physical therapy shortly after surgery. Again has a plan to go for surgery testing tomorrow morning and patient is medically stable no need for any other testing or management before the surgery. Kidney function remains at stage III chronic kidney disease will continue hydration and watch his urine output. 06-03-2023: Patient is going for surgery finally today feeling well he is stable on current dose of oxygen at 1 L he is running around 98 percentile, pain is under controlled, lower abdominal discomfort with his hernia settled down quite a bit. The patient was cleared by cardiology as well. 06-04-2023: Patient is doing well he wants to go home today we will finalize his medication still pending on surgical approval for him to be discharged same time patient still have Guzman catheter in which will be removed to make sure patient is able to void on his own before he is discharged. Apparently patient does not have any rehab he will do home care and physical therapy. 06-05-2023 patient continue not been able to void seen urology had a Guzman catheter decided to follow-up with Dr Valles in [address] through the evening patient felt slightly shortness of breath mild increased cough generalized weakness slight change in blood pressure there is right apparently were not available end up staying in the hospital 20 06/06/2023. Reviewed his labs from today continue to show slight leukocytosis with white blood cell 16.6 his creatinine remained at 1.24 with BUN of 54 blood sugar still running good. REVIEW OF SYSTEMS: CONSTITUTIONAL: Very thin and looks malnourished in no respiratory distress EYES: No icterus sclerae, no conjunctivitis. EARS, NOSE, MOUTH, THROAT, and FACE: No sore throat, lymphadenopathy, carotid bruits or deformity. RESPIRATORY: Mild shortness of cough and wheezes. CARDIOVASCULAR: History of mild congestive heart failure no chest pain or angina PND orthopnea or palpitation. GASTROINTESTINAL: Positive abdominal pain with nausea no vomiting still having stool. GENITOURINARY: Negative for Hematuria or UTI, no kidney stones. INTEGUMENT/BREAST: Negative for any muscular injury with mild osteoarthritis.. HEMATOLOGIC/LYMPHATIC: Negative for bleed or purpura. MUSCULOSKELTAL: Negative for Myalgia or arthralgia. NEURLOGICAL: No LOC, Sz or syncope, blurred vision dizziness or abnormality.. BEHAVIORAL/PSYCH: Negative. ENDOCRINE: Negative. PHYSICAL EXAMINATION: General Appearance: Alert, cooperative, no distress, looks older than his age and quite thin and malnourished. Neck HEENT: Supple, no lymphadenopathy, no thyroid enlargement, no carotid bruits. Lungs: Decreased breath sound bilaterally with rhonchi positive mild expiratory wheezes. Chest Wall: Decreased expansion with deep inspiration no tenderness and no deformity was found on exam, no costochondral pain or discomfort. Heart: Regular rate and rhythm, S1, S2 normal, no murmur, rub or gallop. Back: Symmetric, no curvature, ROM normal, no CVA tenderness. Abdomen: Significant tenderness and discomfort lower abdominal region area mostly on the left side with no rebound or rigidity. Extremities: Extremities normal, atraumatic, no cyanosis or edema. Pulses: 2+ and symmetric. Skin: Skin color, texture, tugor normal, no rashes or lesions. Neurologic: Alert oriented x3 cranial nerves II through XII intact, no motor deficit, no abnormal balance or gait. ASSESSMENT AND PLAN: _Severe abdominal pain: Post bilateral incarceration with worsening pain with loop of bowel stuck in the hernia site and up going for robotic surgery. _Severe COPD: Remain on DuoNeb and Pulmicort still on Solu-Medrol 40 mg every 12 hours pulmonary consultation continue O2 titrate To keep pulse ox above 92%. His FEV1 is 20 percentile patient might require mechanical ventilation after surgery. Pulmonary Daily the patient lung status has been to an analysis follow-up to go for surgery with all possibility of more complication patient potential of end up on the ventilator is very high. Will switch patient to oral prednisone when he goes home. _ Mild congestive heart failure: Has been on spironolactone, lisinopril, metoprolol and furosemide resume medication will consult cardiology review last echocardiogram see if patient need to have any further testing before surgery. _ Chronic kidney disease stage III with acute kidney injury, continue hydration lower any nephrotoxic agent at this point. Repeat kidney function with labs tomorrow. Kidney function is slightly down continue hydration continue to watch for any urinary retention. _ Leukocytosis: Is probably affected by steroid at this point white blood cell is not any worse. Still have to be followed as an outpatient. _ Anemia: Mostly iron deficiency will look for any acute bleed continue pantoprazole for GI prophylaxis watch for any decline in hemoglobin in the next 24 hours. No decline in hemoglobin still very stable. _ BPH: No sign of any urinary retention continue Flomax. _Urinary retention: Required Guzman catheter is probably happened because of the swelling from his surgical site in the pelvic area had compressed the bladder and create more attention will be arrested with Guzman catheter for the next 10 days while he is on Flomax and see neurology as outpatient plan to remove the catheter as an outpatient. Planning: Patient still debilitated, having slight shortness of breath, having problem managing his catheter despite all of the above he still insist on going home with home care and home health. Hospital course: Patient was seen by multi specialist Hospital course: In the hospital patient was seen by many subspecialists including pulmonary, general surgery, cardiology and general internal medicine. Also has slight challenge with his white blood cell and up seen infectious disease as well. Initially general surgery felt he was not stable to go for surgery right away with his surgery was delayed almost 3 to 4 days with seen pulmonary and to not lung dejesus also seen cardiology and work around his shortness of breath. Patient finally was cleared for surgery and ended up going for robotic bilateral inguinal hernia incarceration surgery with Dr. Roberts successfully. Following surgery he started having slight complication including urinary retention, pain management and slight shortness of breath. Which were all treated he ended up having straight cath with training of the bladder for the first 48 hours not successful ended up seeing urology and the plan was to insert Guzman catheter and keep it for the next 10 days till the swelling from his surgery reduce while he is on Flomax and they made an appointment in 10 days as an outpatient to remove the catheter. Patient is stable to be discharged from the hospital on 06/06/2023. Time spent on discharge the patient was over 40 minutes. Patient Condition at Discharge: Fair Plan - Discharge Summary Discharge Rx Participant: No New Discharge Prescriptions: New HYDROcodone/APAP 5-325MG [York 5-325] 1 each PO Q6HR PRN #12 tab PRN Reason: Pain Lactulose [Cephulac] 30 gm PO BID #450 ml Continue Multivit-Mins/Iron/Folic/Lycop [Centrum Men's Tablet] 1 tab PO DAILY Tamsulosin [Flomax] 0.4 mg PO HS Potassium Chloride [Klor-Con M20] 20 meq PO BID@0900,1400 Ferrous Sulfate [Iron (65 MG Elemental)] 325 mg PO DAILY lisinopriL [Zestril] 10 mg PO DAILY Spironolactone [Aldactone] 25 mg PO DAILY Aspirin EC [Ecotrin Low Dose] 81 mg PO DAILY Budesonide-Formot 160-4.5 Mcg [Symbicort 160-4.5 Mcg Inhaler] 2 puff INHALATION RT-BID each Furosemide [Lasix] 30 mg PO DAILY Metoprolol Succinate (ER) [Toprol XL] 25 mg PO DAILY #30 predniSONE [Deltasone] See Taper PO DAILY Mirabegron [Myrbetriq] 50 mg PO DAILY Magnesium Oxide [Magnesium] 500 mg PO DAILY Omeprazole 20 mg PO DAILY Ascorbic Acid [Vitamin C] 500 mg PO DAILY Ipratropium/Albuterol Sulfate [Combivent Respimat Inhaler] 1 puff INHALATION RT-BID Discharge Medication List Aspirin EC [Ecotrin Low Dose] 81 mg PO DAILY 12/06/22 [History] Multivit-Mins/Iron/Folic/Lycop [Centrum Men's Tablet] 1 tab PO DAILY 12/06/22 [History] Tamsulosin [Flomax] 0.4 mg PO HS 12/06/22 [History] Budesonide-Formot 160-4.5 Mcg [Symbicort 160-4.5 Mcg Inhaler] 2 puff INHALATION RT-BID each 12/14/22 [Rx] Furosemide [Lasix] 30 mg PO DAILY 12/31/22 [History] Metoprolol Succinate (ER) [Toprol XL] 25 mg PO DAILY #30 12/31/22 [Rx] Potassium Chloride [Klor-Con M20] 20 meq PO BID@0900,1400 12/31/22 [History] Ascorbic Acid [Vitamin C] 500 mg PO DAILY 05/28/23 [History] Ferrous Sulfate [Iron (65 MG Elemental)] 325 mg PO DAILY 05/28/23 [History] Ipratropium/Albuterol Sulfate [Combivent Respimat Inhaler] 1 puff INHALATION RT- BID 05/28/23 [History] Magnesium Oxide [Magnesium] 500 mg PO DAILY 05/28/23 [History] Mirabegron [Myrbetriq] 50 mg PO DAILY 05/28/23 [History] Omeprazole 20 mg PO DAILY 05/28/23 [History] Spironolactone [Aldactone] 25 mg PO DAILY 05/28/23 [History] lisinopriL [Zestril] 10 mg PO DAILY 05/28/23 [History] predniSONE [Deltasone] See Taper PO DAILY 05/28/23 [History] HYDROcodone/APAP 5-325MG [York 5-325] 1 each PO Q6HR PRN #12 tab 06/04/23 [Rx] Lactulose [Cephulac] 30 gm PO BID #450 ml 06/04/23 [Rx] Follow up Appointment(s)/Referral(s): Yadira Murcia MD [Primary Care Provider] - 1-2 days (office did not answer, please call and make appointment ) Taurus Valles MD [STAFF PHYSICIAN] - 06/21/23 10:20 am Delma Roberts MD [STAFF PHYSICIAN] - 06/14/23 10:15 am Ayden Schofield MD [STAFF PHYSICIAN] - 06/15/23 3:15 pm Hannah Padilla MD [STAFF PHYSICIAN] - 06/17/23 10:15 am Patient Instructions/Handouts: Urinary Retention in Men (GEN), Guzman Catheter Placement and Care (DC), Laparoscopic Herniorrhaphy (IP), Inguinal Hernia Repair (GEN) Activity/Diet/Wound Care/Special Instructions: No lifting for 4 pounds in 4 weeks, July 03 Avoid constipation Using antibacterial soap. May shower. No bathtub soaks for 2 weeks, June 16 Use ice along incisions for today to prevent swelling. Use Tylenol, simethicone and ibuprofen or Aleve scheduled for the next 24-48 hours for best pain relief. Discharge Disposition: HOME WITH HOME HEALTH SERVICES
== END 2023-06-06 19:00 | disposition home health service (06) | DRG 335 ==
LOC: EC 15:34 → 6NMEDSUR 19:26 → 3SCARD 20:11 → OBSVTOIN 05-31 10:23
PROVIDERS: ADMIT Internal Medicine Geriatric Medicine; ATTEND Internal Medicine Geriatric Medicine
PROC: 0YUA4JZ Supplement Bilateral Inguinal Region with Synthetic Substitute, Percutaneous Endoscopic Approach (ICD-10-PCS; 2023-06-03)
PROC: 8E0W4CZ Robotic Assisted Procedure of Trunk Region, Percutaneous Endoscopic Approach (ICD-10-PCS; 2023-06-03)
PROC: 3E0T3BZ Introduction of Anesthetic Agent into Peripheral Nerves and Plexi, Percutaneous Approach (ICD-10-PCS; 2023-06-03)
PROC: 0DNW4ZZ Release Peritoneum, Percutaneous Endoscopic Approach (ICD-10-PCS; principal; 2023-06-03 07:00)
DX: K40.01 Bilateral inguinal hernia, with obstruction, without gangrene, recurrent (principal); I71.00 Dissection of unspecified site of aorta; J96.21 Acute and chronic respiratory failure with hypoxia; I74.8 Embolism and thrombosis of other arteries; N17.9 Acute kidney failure, unspecified; I13.0 Hypertensive heart and chronic kidney disease with heart failure and stage 1 through stage 4 chronic kidney disease, or unspecified chronic kidney disease; I50.32 Chronic diastolic (congestive) heart failure; N13.8 Other obstructive and reflux uropathy; K57.32 Diverticulitis of large intestine without perforation or abscess without bleeding; Z68.1 Body mass index [BMI] 19.9 or less, adult; N18.30 Chronic kidney disease, stage 3 unspecified; D50.9 Iron deficiency anemia, unspecified; F32.A Depression, unspecified; I07.1 Rheumatic tricuspid insufficiency; R63.6 Underweight; N31.9 Neuromuscular dysfunction of bladder, unspecified; I25.5 Ischemic cardiomyopathy; K66.0 Peritoneal adhesions (postprocedural) (postinfection); T38.0X5A Adverse effect of glucocorticoids and synthetic analogues, initial encounter; N40.1 Benign prostatic hyperplasia with lower urinary tract symptoms; Z99.81 Dependence on supplemental oxygen; Z79.52 Long term (current) use of systemic steroids; I25.2 Old myocardial infarction; Z87.891 Personal history of nicotine dependence; Z79.82 Long term (current) use of aspirin; Z79.51 Long term (current) use of inhaled steroids; F10.11 Alcohol abuse, in remission; K21.9 Gastro-esophageal reflux disease without esophagitis; E78.5 Hyperlipidemia, unspecified; E87.5 Hyperkalemia; D72.828 Other elevated white blood cell count; J98.4 Other disorders of lung; R33.8 Other retention of urine; Z86.79 Personal history of other diseases of the circulatory system; Z79.899 Other long term (current) drug therapy
CPT/HCPCS: 36415; 64999; 71045; 74177; 80048; 80053; 85025; 86850; 86900; 86901; 87636; 94640; 94760; 99285

== ENCOUNTER 2024-04-09 18:38 | Inpatient (IN) | payer MEDICARE, OTHER ==
--- NOTE | 2024-04-09 18:48 | ED ---
SOB HPI - General Stated Complaint: SOB Time Seen by Provider: 04/09/24 18:46 Source: RN notes reviewed, old records reviewed - History of Present Illness Initial Comments: This is a 79-year-old male with severe significant shortness of breath has been feverish lately with cough and congestion increasing cough and congestion, EMS has been the patient's house twice today and his shortness of breath has increased since. Patient has severe underlying COPD without any significant current chest pain. No recent travel history or known sick contacts. Patient states his shortness of breath is just increasing despite home treatments MD Complaint: shortness of breath, cough, "asthma attack", anxiety -: days(s) Severity: severe Severity scale (1-10): 9 Consistency: constant Improves With: nothing Worsens With: exertion Known History Of: COPD, asthma Associated Symptoms: chest pain, cough, sputum production Treatments Prior to Arrival: none - Related Data Home Medications Medication Instructions Recorded Confirmed Aspirin EC [Ecotrin Low Dose] 81 mg PO DAILY 12/06/22 04/09/24 Multivit-Mins/Iron/Folic/Lycop 1 tab PO DAILY 12/06/22 04/09/24 [Centrum Men's Tablet] Ascorbic Acid [Vitamin C] 500 mg PO DAILY 05/28/23 04/09/24 Ferrous Sulfate [Iron (65 MG 325 mg PO DAILY 05/28/23 04/09/24 Elemental)] Spironolactone [Aldactone] 12.5 mg PO DAILY 05/28/23 04/09/24 Fluticasone/Umeclidin/Vilanter 1 puff INHALATION RT-DAILY 04/09/24 04/09/24 [Trelegy Ellipta 100-62.5-25] Thiamine [Vitamin B-1] 100 mg PO DAILY 04/09/24 04/09/24 Previous Rx's Medication Instructions Recorded Metoprolol Succinate (ER) [Toprol 25 mg PO DAILY #30 12/31/22 XL] Budesonide-Formot 160-4.5 Mcg 2 puff INHALATION RT-BID each 04/12/24 [Symbicort 160-4.5 Mcg Inhaler] Doxycycline [Vibramycin] 100 mg PO BID 7 Days #14 capsule 04/12/24 Furosemide [Lasix] 20 mg PO DAILY #0 04/12/24 Ipratropium-Albuterol Nebulize 3 ml INHALATION RT-Q4H PRN each 04/12/24 [Duoneb 0.5 mg-3 mg/3 ml Soln] Ipratropium-Albuterol Nebulize 3 ml INHALATION RT-QID each 04/12/24 [Duoneb 0.5 mg-3 mg/3 ml Soln] Sennosides [Senokot] 8.6 mg PO BID PRN tab 04/12/24 lisinopriL [Zestril] 5 mg PO DAILY #0 04/12/24 polyethylene glycoL 3350 [Miralax] 17 gm PO HS packet 04/12/24 predniSONE See Taper PO DIRECTED #30 tab 04/12/24 Allergies Allergy/AdvReac Type Severity Reaction Status Date / Time No Known Allergies Allergy Verified 04/09/24 18:49 Review of Systems ROS Statement: Those systems with pertinent positive or pertinent negative responses have been documented in the HPI. ROS Other: All systems not noted in ROS Statement are negative. Past Medical History Past Medical History: COPD, Dialysis, GERD/Reflux, Hyperlipidemia, Hypertension Additional Past Medical History / Comment(s): Neuromuscular dysfunction of bladder, iron deficiency anemia, neurogenic bladder, pressure ulcers, dissection of thoracic aorta, no longer doing dialysis, previous ETOH abuse, [place] 2018, CHF History of Any Multi-Drug Resistant Organisms: ESBL Date of last positivie culture/infection: 02/14/19 ESBL-E.coli MDRO Source:: Urine Past Surgical History: No Surgical Hx Reported Additional Past Surgical History / Comment(s): May 2018 thoracic aorta repair at [facility] Past Anesthesia/Blood Transfusion Reactions: No Reported Reaction Past Psychological History: No Psychological Hx Reported Smoking Status: Former smoker Past Alcohol Use History: Abuse, Daily Additional Past Alcohol Use History / Comment(s): quit 1989, began to drink again occasionally 2011 Past Drug Use History: None Reported Additional Drug Use History / Comment(s): pt stopped smoking 03/16/2022 - Past Family History Father Family Medical History: Cancer Mother Family Medical History: No Reported History Additional Family Medical History / Comment(s): of old age General Exam Limitations: altered mental status General appearance: anxious, in distress, cachectic Head exam: Present: atraumatic, normocephalic, normal inspection Eye exam: Present: normal appearance, PERRL, EOMI. Absent: scleral icterus, conjunctival injection, periorbital swelling ENT exam: Present: normal exam, mucous membranes moist Neck exam: Present: normal inspection. Absent: tenderness, meningismus, lymphadenopathy Respiratory exam: Present: respiratory distress, wheezes, decreased breath sounds, prolonged expiratory. Absent: rales, rhonchi, stridor Cardiovascular Exam: Present: regular rate, normal rhythm, normal heart sounds. Absent: systolic murmur, diastolic murmur, rubs, gallop, clicks GI/Abdominal exam: Present: soft, normal bowel sounds. Absent: distended, tenderness, guarding, rebound, rigid Extremities exam: Present: normal inspection, full ROM, normal capillary refill. Absent: tenderness, pedal edema, joint swelling, calf tenderness Back exam: Present: normal inspection Neurological exam: Present: alert, oriented X3, CN II-XII intact Psychiatric exam: Present: normal affect, normal mood Skin exam: Present: warm, dry, intact, normal color. Absent: rash Course Vital Signs 04/09/24 04/09/24 04/09/24 18:46 19:03 19:39 Temperature 98.3 F Pulse Rate 91 78 Respiratory 18 18 Rate Blood Pressure 192/86 O2 Sat by Pulse 100 Oximetry 04/09/24 04/09/24 04/09/24 20:00 20:45 20:57 Temperature Pulse Rate 76 77 81 Respiratory Rate Blood Pressure O2 Sat by Pulse Oximetry 04/09/24 04/10/24 04/10/24 22:47 04:18 04:27 Temperature Pulse Rate 93 70 70 Respiratory 20 18 Rate Blood Pressure 143/83 147/81 O2 Sat by Pulse 99 95 Oximetry 04/10/24 04/10/24 04/10/24 04:30 06:43 08:14 Temperature Pulse Rate 67 69 77 Respiratory 18 Rate Blood Pressure 151/81 O2 Sat by Pulse 98 Oximetry 04/10/24 04/10/24 04/10/24 08:16 08:28 09:16 Temperature 98 F Pulse Rate 89 92 Respiratory 24 Rate Blood Pressure 146/91 O2 Sat by Pulse 99 94 L Oximetry - Reevaluation(s) Reevaluation #1: 04/09/24 21:44 Medical records reviewed Reevaluation #2: 04/09/24 21:45 Patient symptoms unchanged Reevaluation #3: 04/09/24 21:45 Patient informed of results and questions answered Reevaluation #4: Was pt. sent in by a medical professional or institution (, [facility], MEDIA PRODUCER, urgent care, hospital, or fpc...) When possible be specific @ -no Did you speak to anyone other than the patient for history (EMS, parent, family, police, friend...)? What history was obtained from this source @ -no Did you review nursing and triage notes (agree or disagree)? Why? @ -agree Are old charts reviewed (outside hosp., previous admission, EMS record, old EKG, old radiological studies, urgent care reports/EKG's, fpc records)? Report findings @ -yes Differential Diagnosis (chest pain, altered mental status, abdominal pain women, abdominal pain men, vaginal bleeding, weakness, fever, dyspnea, syncope, headache, dizziness, GI bleed, back pain, seizure, CVA, palpatations, mental health, musculoskeletal)? @ -prior EKG interpreted by me (3pts min.). @ -yes X-rays interpreted by me (1pt min.). @ -yes negative for acute disease CT interpreted by me (1pt min.). @ -no U/S interpreted by me (1pt. min.). @ -no What testing was considered but not performed or refused? (CT, X-rays, U/S, labs)? Why? @ -none What meds were considered but not given or refused? Why? @ -none Did you discuss the management of the patient with other professionals (prof navya i.e. [facility] Morel, MEDIA PRODUCER, lab, RT, psych nurse, medical social consultant, record changer, teacher, airline pilot/first officer, outsole caser)? Give summary @ -no Was smoking cessation discussed for >3mins.? @ -no Was critical care preformed (if so, how long)? @ -no Were there social determinants of health that impacted care today? How? (Homelessness, low income, unemployed, alcoholism, drug addiction, transportation, low edu. Level, literacy, decrease access to med. care, custodial, rehab)? @ -none Was there de-escalation of care discussed even if they declined (Discuss DNR or withdrawal of care, Hospice)? DNR status @ -no What co-morbidities impacted this encounter? (DM, HTN, Smoking, COPD, CAD, Cancer, CVA, ARF, Chemo, Hep., AIDS, mental health diagnosis, sleep apnea, morbid obesity)? @ -none Was patient admitted / discharged? Hospital course, mention meds given and route, prescriptions, significant lab abnormalities, going to OR and other pertinent info. @ - 79 male will be admitted for pneumonia pneumonia complicated by severe COPD on home O2 Admitted Undiagnosed new problem with uncertain prognosis? @ -no Drug Therapy requiring intensive monitoring for toxicity (Heparin, Nitro, Insulin, Cardizem)? @ -no Were any procedures done? @ -no Diagnosis/symptom? @ -Pneumonia COPD home O2 Acute, or Chronic, or Acute on Chronic? @ -Acute Uncomplicated (without systemic symptoms) or Complicated (systemic symptoms)? @ -Complicated Side effects of treatment? @ -no Exacerbation, Progression, or Severe Exacerbation? @ -exacerbation Poses a threat to life or bodily function? How? (Chest pain, [place], [place], pneumonia, PE, COPD, DKA, ARF, appy, cholecystitis, CVA, Diverticulitis, Homicidal, Suicidal, threat to staff... and all critical care pts) @ -yes respiratory failure extremes of age Reevaluation #5: Differential Dyspnea: Coronary syndrome, arrhythmia, tamponade, asthma, COPD, pulmonary embolism, pneumonia, pneumothorax, pulmonary effusion, anaphylaxis, diabetic ketoacidosis, flailed chest, pulmonary contusion, diaphragmatic rupture, anemia, neuromuscular, this is not meant to be an all-inclusive list. - Consultations Consultation #1: Spoke with [facility] who agrees to admit this patient Medical Decision Making - Medical Decision Making 79 male will be admitted for pneumonia pneumonia complicated by severe COPD on home O2 - Lab Data Result diagrams: 04/09/24 18:57 04/12/24 04:04 Lab Results 04/09/24 04/09/24 04/09/24 Range/Units 18:57 18:57 18:57 WBC 12.0 H (3.8-10.6) k/uL RBC 4.15 L (4.30-5.90) m/uL Hgb 12.2 L (13.0-17.5) gm/dL Hct 38.3 L (39.0-53.0) % MCV 92.4 (80.0-100.0) fL MCH 29.5 (25.0-35.0) pg MCHC 31.9 (31.0-37.0) g/dL RDW 13.5 (11.5-15.5) % Plt Count 216 (150-450) k/uL MPV 8.6 Neutrophils % 69 % Lymphocytes % 17 % Monocytes % 6 % Eosinophils % 5 % Basophils % 1 % Neutrophils # 8.2 H (1.3-7.7) k/uL Lymphocytes # 2.1 (1.0-4.8) k/uL Monocytes # 0.8 (0-1.0) k/uL Eosinophils # 0.6 (0-0.7) k/uL Basophils # 0.1 (0-0.2) k/uL PT 11.1 (10.0-12.5) sec INR 1.0 (<1.2) APTT 25.3 (22.0-30.0) sec Sodium 145 (137-145) mmol/L Potassium 4.6 (3.5-5.1) mmol/L Chloride 105 (98-107) mmol/L Carbon Dioxide 28 (22-30) mmol/L Anion Gap 12 mmol/L BUN 31 H (9-20) mg/dL Creatinine 1.63 H (0.66-1.25) mg/dL Est GFR (CKD-EPI)AfAm 46 (>60 ml/min/1.73 sqM) Est GFR (CKD-EPI)NonAf 40 (>60 ml/min/1.73 sqM) Glucose 110 H (74-99) mg/dL Calcium 8.9 (8.4-10.2) mg/dL Magnesium 2.1 (1.6-2.3) mg/dL Total Bilirubin 0.2 (0.2-1.3) mg/dL AST 28 (17-59) U/L ALT 20 (4-49) U/L Alkaline Phosphatase 77 (38-126) U/L Troponin I (0.000-0.034) ng/mL NT-Pro-B Natriuret Pep 1600 pg/mL Total Protein 6.5 (6.3-8.2) g/dL Albumin 4.0 (3.5-5.0) g/dL 04/09/24 Range/Units 18:57 WBC (3.8-10.6) k/uL RBC (4.30-5.90) m/uL Hgb (13.0-17.5) gm/dL Hct (39.0-53.0) % MCV (80.0-100.0) fL MCH (25.0-35.0) pg MCHC (31.0-37.0) g/dL RDW (11.5-15.5) % Plt Count (150-450) k/uL MPV Neutrophils % % Lymphocytes % % Monocytes % % Eosinophils % % Basophils % % Neutrophils # (1.3-7.7) k/uL Lymphocytes # (1.0-4.8) k/uL Monocytes # (0-1.0) k/uL Eosinophils # (0-0.7) k/uL Basophils # (0-0.2) k/uL PT (10.0-12.5) sec INR (<1.2) APTT (22.0-30.0) sec Sodium (137-145) mmol/L Potassium (3.5-5.1) mmol/L Chloride (98-107) mmol/L Carbon Dioxide (22-30) mmol/L Anion Gap mmol/L BUN (9-20) mg/dL Creatinine (0.66-1.25) mg/dL Est GFR (CKD-EPI)AfAm (>60 ml/min/1.73 sqM) Est GFR (CKD-EPI)NonAf (>60 ml/min/1.73 sqM) Glucose (74-99) mg/dL Calcium (8.4-10.2) mg/dL Magnesium (1.6-2.3) mg/dL Total Bilirubin (0.2-1.3) mg/dL AST (17-59) U/L ALT (4-49) U/L Alkaline Phosphatase (38-126) U/L Troponin I <0.012 (0.000-0.034) ng/mL NT-Pro-B Natriuret Pep pg/mL Total Protein (6.3-8.2) g/dL Albumin (3.5-5.0) g/dL - EKG Data -: EKG Interpreted by Me (EKG is sinus 84 VA 142 QRS 97 QTc 460) - Radiology Data Radiology results: report reviewed (Chest x-ray positive for pneumonia), image reviewed Disposition Clinical Impression: Acute exacerbation of chronic obstructive pulmonary disease, COPD (chronic obstructive pulmonary disease), Community acquired pneumonia Disposition: ADMITTED IP TO THIS HOSP Condition: Fair Time of Disposition: 20:00
[2024-04-09] MEDS: methylPREDNISolone SOD SUCCI 125 MG/2 ML VIAL IV STA (19:02)
[2024-04-09] MEDS: IPRATROPIUM-ALBUTEROL 3 ML NEB INHALATION STA ×2 (19:02→20:44)
[2024-04-09] MEDS: SODIUM CHLORIDE 0.9% 1,000 ML IV STA (19:03)
[2024-04-09 19:09] LABS: Basophils # (A) 0.1 k/uL (0-0.2); Basophils % (A) 1 %; Eosinophils # (A) 0.6 k/uL (0-0.7); Eosinophils % (A) 5 %; HCT 38.3 % (39.0-53.0); HGB 12.2 gm/dL (13.0-17.5); Lymphocytes # (A) 2.1 k/uL (1.0-4.8); Lymphocytes % (A) 17 %; MCH 29.5 pg (25.0-35.0); MCHC 31.9 g/dL (31.0-37.0); MCV 92.4 fL (80.0-100.0); Mean Platelet Volume 8.6; Monocytes # (A) 0.8 k/uL (0-1.0); Monocytes % (A) 6 %; Neutrophils # (A) 8.2 k/uL (1.3-7.7); Neutrophils % (A) 69 %; Platelet Count 216 k/uL (150-450); RBC 4.15 m/uL (4.30-5.90); RDW 13.5 % (11.5-15.5)
[2024-04-09 19:19] LABS: Partial Thromboplastin Time 25.3 sec (22.0-30.0); Prothrombin Time 11.1 sec (10.0-12.5)
[2024-04-09 19:29] LABS: ALT 20 U/L (4-49); AST 28 U/L (17-59); African American GFR (CKD) 46 (>60 ml/min/1.73 sqM); Alkaline Phosphatase 77 U/L (38-126); Anion Gap 12 mmol/L; Blood Urea Nitrogen 31 mg/dL (9-20); Calcium 8.9 mg/dL (8.4-10.2); Carbon Dioxide 28 mmol/L (22-30); Chloride 105 mmol/L (98-107); Glucose 110 mg/dL (74-99); Magnesium 2.1 mg/dL (1.6-2.3); Non-African American GFR(CKD) 40 (>60 ml/min/1.73 sqM); Potassium 4.6 mmol/L (3.5-5.1); Sodium 145 mmol/L (137-145); Total Bilirubin 0.2 mg/dL (0.2-1.3); Total Protein 6.5 g/dL (6.3-8.2)
[2024-04-09 19:38] LABS: NT-Pro-B-Type Natriuretic Pept 1600 pg/mL
--- NOTE | 2024-04-09 19:48 | XR ---
EXAMINATION TYPE: XR chest 1V portable DATE OF EXAM: 04/09/2024 7:31 PM CLINICAL INDICATION:Male, 79 years old with history of sob; [facility] COMPARISON: Chest radiographs from 06/17/2023. TECHNIQUE: XR chest 1V portable Frontal view of the chest. FINDINGS: There are hazy and coarse appearing opacifications in the right mid and lower lungs. Coarse interstit ial markings are seen in the bilateral upper lung zones. No pneumothorax is appreciated. Redemonstrat ed sternotomy wires and aortic vascular graft. The cardiac silhouette appears within normal limits. N o acute osseous abnormalities IMPRESSION: Coarse pulmonary findings are seen suggesting a chronic emphysematous/fibrotic process with concomita nt hazy airspace disease in the right lung. [facility], , 04/09/2024 7:45 PM
[2024-04-09] MEDS ORDERED: ALBUTEROL NEBULIZED 2.5 MG/3 ML INHALATION PRN (20:09)
[2024-04-09] MEDS ORDERED: PNEUMONIA PROTOCOL UTILIZED 1 EACH MISC PO PRN (20:09)
[2024-04-09] MEDS: ENALAPRILAT 1.25 MG/ML 1 ML VIAL IVP STA (20:35)
[2024-04-09] MEDS: AZITHROMYCIN 500 MG in SODIUM CHLORIDE 0.9% 250 ML IVPB STA (20:44)
--- NOTE | 2024-04-10 04:15 | P.CNPUL ---
History of Present Illness Consult date: 04/10/24 Requesting physician: Matheus Peters Reason for consult: COPD, pneumonia Chief complaint: Shortness of breath, cough History of present illness: Patient is a 79-year-old male with past medical history significant for severe oxygen dependant COPD, normally wears 1 L/min nasal cannula at home, reportedly follows with Dr. Padilla in the pulmonary office. He utilizes a Trelegy m aintenance inhaler as well as albuterol nebs as needed. Also, has recent history of incarcerated inguinal hernia status post repair, previous thoracic aortic aneurysm repair, hypertension, hyperlipidemia, chronic kidney disease, among other things. Patient presented the ED yesterday evening complaining of increasing shortness of breath, productive cough with seaman to green phlegm, and subjective fevers. Denies sick contacts, he lives with his [id number], she has been reportedly feeling well. Patient symptoms reportedly started Tuesday, he did call EMS that evening. States his shortness of breath improved after breathing treatment was given and he remained at home. Yesterday, shortness of breath worsened and called EMS again. He is complaining of some right upper quadrant abdominal. Rated 5/10.. States this happened after bending over to put his pants on. He is also reporting some constipation. Last normal bowel movement was on Tuesday. Denies nausea, vomiting, hematochezia, melanotic stools. EMS brought him to the emergency department. Chest x-ray done on arrival showing chronic COPD changes with right lung haziness. CBC: WBC count 12, hemoglobin 12.2, hematocrit 38.3, platelets 216. CMP: Sodium 145, potassium 4.6, chloride 105, serum bicarb 28, BUN 31, creatinine 1.63, glucose 110. LFTs unremarkable. Troponin less than 0.012. NT proBNP 1600. EKG: Shows normal sinus rhythm, rate 84 bpm, occasional PACs, incomplete RBBB pattern. No acute ischemic changes. Patient was empirically started on antibiotics in the ED. Patient is being evaluated in the emergency department, room 7. He is on 1 L/min nasal cannula no acute respiratory distress. Sitting up in bed. States his breathing is worse than his baseline, and he cannot "get a full breath in". Has minimal sputum production in bedside container. Seaman/green in color. Has remained afebrile inpatient. Current most recent vitals: Temperature 98.3 F, heart rate 90 bpm, blood pressure 143/83 mmHg, nontachypneic, SpO2 99% on 1 L/min nasal cannula. Review of Systems Constitutional: Reports chills, Reports fatigue, Reports fever, Denies poor appetite, Denies weight gain, Denies weight loss Ears, nose, mouth and throat: Denies epistaxis, Denies nasal congestion, Denies nasal discharge Cardiovascular: Reports decreased exercise tolerance, Reports leg edema, Denies chest pain, Denies orthopnea, Denies palpitations, Denies paroxysmal nocturnal dyspnea, Denies syncope Respiratory: Reports as per HPI Gastrointestinal: Reports abdominal pain, Reports change in bowel habits, Reports constipation, Denies diarrhea, Denies hematemesis, Denies hematochezia, Denies loss of appetite, Denies nausea, Denies vomiting Genitourinary: Denies dysuria Musculoskeletal: Denies limitation of motion Integumentary: Denies rash Neurological: Denies seizures, Denies syncope Psychiatric: Reports depression, Denies anxiety, Denies suicidal ideation Past Medical History Past Medical History: COPD, Dialysis, GERD/Reflux, Hyperlipidemia, Hypertension Additional Past Medical History / Comment(s): Neuromuscular dysfunction of bladder, iron deficiency anemia, neurogenic bladder, pressure ulcers, dissection of thoracic aorta, no longer doing dialysis, previous ETOH abuse, [place] 2019, CHF History of Any Multi-Drug Resistant Organisms: ESBL Date of last positivie culture/infection: 02/14/19 ESBL-E.coli MDRO Source:: Urine Past Surgical History: No Surgical Hx Reported Additional Past Surgical History / Comment(s): May 2018 thoracic aorta repair at [facility] Past Anesthesia/Blood Transfusion Reactions: No Reported Reaction Past Psychological History: No Psychological Hx Reported Smoking Status: Former smoker Past Alcohol Use History: Abuse, Daily Additional Past Alcohol Use History / Comment(s): quit 1989, began to drink again occasionally 2011 Past Drug Use History: None Reported Additional Drug Use History / Comment(s): pt stopped smoking 03/16/2022 - Past Family History Father Family Medical History: Cancer Mother Family Medical History: No Reported History Additional Family Medical History / Comment(s): of old age Medications and Allergies Home Medications Medication Instructions Recorded Confirmed Type Aspirin EC [Ecotrin Low Dose] 81 mg PO DAILY 12/06/22 04/09/24 History Multivit-Mins/Iron/Folic/Lycop 1 tab PO DAILY 12/06/22 04/09/24 History [Centrum Men's Tablet] Furosemide [Lasix] 10 mg PO DAILY 12/31/22 04/09/24 History Metoprolol Succinate (ER) [Toprol 25 mg PO DAILY #30 12/31/22 04/09/24 Rx XL] Ascorbic Acid [Vitamin C] 500 mg PO DAILY 05/28/23 04/09/24 History Ferrous Sulfate [Iron (65 MG 325 mg PO DAILY 05/28/23 04/09/24 History Elemental)] Spironolactone [Aldactone] 12.5 mg PO DAILY 05/28/23 04/09/24 History Fluticasone/Umeclidin/Vilanter 1 puff INHALATION RT-DAILY 04/09/24 04/09/24 History [Trelegy Ellipta 100-62.5-25] Thiamine [Vitamin B-1] 100 mg PO DAILY 04/09/24 04/09/24 History lisinopriL [Zestril] 2.5 mg PO DAILY 04/09/24 04/09/24 History Allergies Allergy/AdvReac Type Severity Reaction Status Date / Time No Known Allergies Allergy Verified 04/09/24 18:49 Physical Exam Vitals: Vital Signs Temp Pulse Resp BP Pulse Ox 04/09/24 22:47 93 20 143/83 99 04/09/24 20:57 81 04/09/24 20:45 77 04/09/24 20:00 76 04/09/24 19:39 78 04/09/24 19:03 18 04/09/24 18:46 98.3 F 91 18 192/86 100 Intake and Output 04/09/24 04/09/24 04/10/24 14:59 22:59 06:59 Other: Weight 63.503 kg GENERAL EXAM: Alert, 79-year-old male, sitting up in bed, on 1 L/min nasal cannula,, comfortable in no apparent distress. HEAD: Normocephalic and atraumatic EYES: Normal reaction of pupils, equal size. NOSE: Clear with pink turbinates. THROAT: No erythema or exudates. NECK: No masses, no JVD. CHEST: No chest wall deformity. LUNGS: Equal air entry with markedly diminished lung sounds bilaterally throughout. No crackles, wheeze, rhonchi or dullness. On 1 L/min nasal cannula, SpO2 99%, no conversational dyspnea or accessory muscle use.. CVS: S1 and S2 normal with no audible murmur, regular rhythm. No extra heart sounds ABDOMEN: Flat abdomen, active bowel sounds, no significant guarding or rigidity, no hepatosplenomegaly. SPINE: No scoliosis or deformity SKIN: No rashes CENTRAL NERVOUS SYSTEM: No focal deficits, tone is normal in all 4 extremities. EXTREMITIES: There is bilateral lower extremity 3+ pitting edema. Distal pulses intact and palpable, capillary refill less than 3 seconds, there is digital clubbing Results - Laboratory Findings CBC and BMP: 04/09/24 18:57 04/09/24 18:57 PT/INR, D-dimer PT 11.1 sec (10.0-12.5) 04/09/24 18:57 INR 1.0 (<1.2) 04/09/24 18:57 Abnormal lab findings: Abnormal Labs 04/09/24 04/09/24 18:57 18:57 WBC 12.0 H RBC 4.15 L Hgb 12.2 L Hct 38.3 L Neutrophils # 8.2 H BUN 31 H Creatinine 1.63 H Glucose 110 H - Diagnostic Findings Chest x-ray: image reviewed Assessment and Plan Assessment: Acute COPD exacerbation, chest x-ray done on arrival showing chronic COPD changes with subtle right lung haziness, possible right lower lung community- acquired pneumonia. Cardiac silhouette is stable, there is a previous graft of the thoracic aorta and sternotomy wires. Acute on chronic dyspnea, likely secondary to above Very severe chronic obstructive pulmonary disease, with an FEV1 20% of predicted, oxygen dependent at baseline, also uses Trelegy inhaler as well as albuterol nebs as needed Chronic hypoxemic respiratory failure, secondary to above, normally wears 1 L/min nasal cannula at home. Former tobacco smoker, quit in 2021 Bilateral lower extremity edema, takes Lasix and Aldactone on outpatient basis History of incarcerated bilateral inguinal hernia s/p repair Chronic kidney disease stage III, stable renal function History of neurogenic bladder History of thoracic aortic aneurysm/aortic valve repair at [facility] May 2018, Hypertension Hyperlipidemia History of depression Plan: Patient's medications, labs, imaging reviewed Continue supplemental oxygen, currently on 1 L/min nasal cannula, which he wears at home Questionable right lung infiltrate, continue empiric antibiotics Repeat chest x-ray in the morning Check procalcitonin level Check Cepheid 4 Plex Start patient on combination of bronchodilators, Symbicort inhaler, and IV Solu- Medrol Add Lasix 20 mg daily Most recent available echocardiogram from December, demonstrates preserved left ventricular ejection fraction and systolic function with grade 1 diastolic dysfunction and moderate to severe tricuspid regurgitation. Restart home medications Will continue to follow, additional recommendations are forthcoming I have personally seen and examined the patient, performed the documentation and the assessment and plan as written. Number of minutes spent on the visit:20 This is a joint evaluation that was done along with the nurse practitioner. This evaluation was done more than 30 minutes. 79-year-old male patient coming in with worsening shortness of breath. The patient is known to have advanced oxygen dependent COPD. Patient has a baseline FEV1 of 20% of predicted and the patient has been maintained on Trelegy Ellipta on an outpatient basis. He is also home oxygen dependent. Chest x-ray was reviewed and there is emphysema with questionable hazy infiltrate in the right lung base. Pneumonia cannot be completely excluded. Echocardiogram shows impaired LV function with an ejection fraction of 35 to 40%. The patient has global reduced LV function with severe RV dilatation and mild pulmonary hypertension. Patient is currently on bronchodilators, and IV steroids. Will add Zithromax as an empiric antibiotic coverage. Procalcitonin level is at 0.12. Time with Patient: Greater than 30
[2024-04-10] MEDS: IPRATROPIUM-ALBUTEROL 3 ML NEB INHALATION PRN (04:18)
[2024-04-10] MEDS: methylPREDNISolone SOD SUCCI 125 MG/2 ML VIAL IV SCH (06:42)
--- NOTE | 2024-04-10 08:12 | XR ---
EXAMINATION TYPE: XR chest 1V portable DATE OF EXAM: 04/10/2024 CLINICAL HISTORY: Pneumonia TECHNIQUE: Single AP portable frontal upright view of the chest is obtained. COMPARISON: Chest x-ray one day earlier and older studies FINDINGS: Overlying sternal wires and mediastinal clips are redemonstrated. Persistent chronic parenc hymal change with increased opacity in the right lower lung. Cardiac silhouette size is stable and wi thin normal limits with stent graft in the aortic arch and descending aorta redemonstrated. Osseous s tructures are demineralized. IMPRESSION: Chronic changes with persistent right lower lung acute infiltrate and/or atelectasis. No significant change from one day earlier. [facility], , 04/10/2024 8:10 AM
[2024-04-10] MEDS: SYMBICORT 160-4.5 MCG INHALER INHALATION SCH (08:13)
[2024-04-10] MEDS: IPRATROPIUM-ALBUTEROL 3 ML NEB INHALATION SCH (08:13)
[2024-04-10] MEDS: FERROUS SULFATE 325 MG TAB PO SCH (09:10)
[2024-04-10] MEDS: SPIRONOLACTONE 25 MG TAB PO SCH (09:10)
[2024-04-10] MEDS: ASPIRIN 81 MG PO SCH (09:11)
[2024-04-10] MEDS: FUROSEMIDE 10 MG/ML 2 ML VIAL IV SCH (09:11)
[2024-04-10] MEDS: METOPROLOL SUCCINATE (ER) 25 MG TAB.ER.24H PO SCH (09:12)
--- NOTE | 2024-04-10 11:38 | P.HPIM ---
History of Present Illness Patient is a pleasant 79-year-old male with known history of COPD who is 1 L of oxygen quit smoking many years ago came in with complaints of shortness of breath found to be in COPD exacerbation was chest x-ray there is a hazy opacity in the right middle lung brown but his procalcitonin is negative patient was given Rocephin and azithromycin in ER which is being discontinued now patient was also started on systemic steroids inhalational treatments. Patient has a history of chronic diastolic function and is on Lasix Aldactone and low-dose lisinopril. All his heart failure medications are being continued except for Lasix patient appears to be admitted the hypovolemic side. proBNP 600 REVIEW OF SYSTEMS: All other systems are negative except those mentioned in the HPI PHYSICAL EXAMINATION: GENERAL: The patient is alert and oriented x3, not in any acute distress. Thin built cachectic male HEENT: Pupils are round and equally reacting to light. EOMI. No scleral icterus. No conjunctival pallor. Normocephalic, atraumatic. No pharyngeal erythema. No thyromegaly. CARDIOVASCULAR: S1 and S2 present. No murmurs, rubs, or gallops. PULMONARY: Chest is clear to auscultation, decreased air entry to bilateral lung brown. ABDOMEN: Soft, nontender, nondistended, normoactive bowel sounds. No palpable organomegaly. MUSCULOSKELETAL: No joint swelling or deformity. EXTREMITIES: No cyanosis, clubbing, or pedal edema. NEUROLOGICAL: Gross neurological examination did not reveal any focal deficits. SKIN: No rashes. Assessment and plan -Acute on chronic hypercapnic and hypoxic respiratory failure secondary to COPD exacerbation continue with systemic steroids and-treatment my suspicion is low for pneumonia despite of the infiltrate on x-ray I will discontinue Rocephin continue with oral azithromycin -Congestive heart failure chronic diastolic function without any acute exacerbation patient is hypovolemic hold off on oral Lasix today he can be resumed on Lasix tomorrow continue with Aldactone and lisinopril -Chronic kidney disease stage IIIb -Hypertension -Hyperlipidemia -Depression DVT prophylaxis: Low-dose Lovenox subcutaneous Past Medical History Past Medical History: COPD, Dialysis, GERD/Reflux, Hyperlipidemia, Hypertension Additional Past Medical History / Comment(s): Neuromuscular dysfunction of bladder, iron deficiency anemia, neurogenic bladder, pressure ulcers, dissection of thoracic aorta, no longer doing dialysis, previous ETOH abuse, [place] 2019, CHF History of Any Multi-Drug Resistant Organisms: ESBL Date of last positivie culture/infection: 02/14/19 ESBL-E.coli MDRO Source:: Urine Past Surgical History: No Surgical Hx Reported Additional Past Surgical History / Comment(s): May 2018 thoracic aorta repair at [facility], [place] Past Anesthesia/Blood Transfusion Reactions: No Reported Reaction Past Psychological History: No Psychological Hx Reported Smoking Status: Former smoker Past Alcohol Use History: Abuse, Daily Additional Past Alcohol Use History / Comment(s): quit 1989, began to drink again occasionally 2011 Past Drug Use History: None Reported Additional Drug Use History / Comment(s): pt stopped smoking 03/16/2022 - Past Family History Father Family Medical History: Cancer Mother Family Medical History: No Reported History Additional Family Medical History / Comment(s): of old age Medications and Allergies Home Medications Medication Instructions Recorded Confirmed Type Aspirin EC [Ecotrin Low Dose] 81 mg PO DAILY 12/06/22 04/09/24 History Multivit-Mins/Iron/Folic/Lycop 1 tab PO DAILY 12/06/22 04/09/24 History [Centrum Men's Tablet] Furosemide [Lasix] 10 mg PO DAILY 12/31/22 04/09/24 History Metoprolol Succinate (ER) [Toprol 25 mg PO DAILY #30 12/31/22 04/09/24 Rx XL] Ascorbic Acid [Vitamin C] 500 mg PO DAILY 05/28/23 04/09/24 History Ferrous Sulfate [Iron (65 MG 325 mg PO DAILY 05/28/23 04/09/24 History Elemental)] Spironolactone [Aldactone] 12.5 mg PO DAILY 05/28/23 04/09/24 History Fluticasone/Umeclidin/Vilanter 1 puff INHALATION RT-DAILY 04/09/24 04/09/24 History [Trelegy Ellipta 100-62.5-25] Thiamine [Vitamin B-1] 100 mg PO DAILY 04/09/24 04/09/24 History lisinopriL [Zestril] 2.5 mg PO DAILY 04/09/24 04/09/24 History Allergies Allergy/AdvReac Type Severity Reaction Status Date / Time No Known Allergies Allergy Verified 04/09/24 18:49 Physical Exam Vitals: Vital Signs Temp Pulse Resp BP Pulse Ox 04/10/24 09:16 98 F 92 24 146/91 94 L 04/10/24 08:28 89 04/10/24 08:16 99 04/10/24 08:14 77 04/10/24 06:43 69 18 151/81 98 04/10/24 04:30 67 04/10/24 04:27 70 18 147/81 95 04/10/24 04:18 70 04/09/24 22:47 93 20 143/83 99 04/09/24 20:57 81 04/09/24 20:45 77 04/09/24 20:00 76 04/09/24 19:39 78 04/09/24 19:03 18 04/09/24 18:46 98.3 F 91 18 192/86 100 Intake and Output 04/09/24 04/10/24 04/10/24 22:59 06:59 14:59 Other: Weight 63.503 kg Results CBC & Chem 7: 04/09/24 18:57 04/09/24 18:57 Labs: Abnormal Lab Results - Last 24 Hours (Table) 04/09/24 04/09/24 Range/Units 18:57 18:57 WBC 12.0 H (3.8-10.6) k/uL RBC 4.15 L (4.30-5.90) m/uL Hgb 12.2 L (13.0-17.5) gm/dL Hct 38.3 L (39.0-53.0) % Neutrophils # 8.2 H (1.3-7.7) k/uL BUN 31 H (9-20) mg/dL Creatinine 1.63 H (0.66-1.25) mg/dL Glucose 110 H (74-99) mg/dL
--- NOTE | 2024-04-10 13:02 | CA ---
Transthoracic Echo Report Name: Doug Pemberton Age: 79 Gender: M : 1945 Exam Date: 04/10/2024 10:12 Exam Location: [place] [facility] Ht (in): 68 Wt (lb): 140 Ordering Physician: Tigre Obregon Attending/Referring Phys: Propeller Inspector Jenni Mane RDCS Procedure CPT: Indications: evaluate LV function Cardiac Hx: Technical Quality: Fair Contrast 1: Total Dose (mL): Contrast 2: Total Dose (mL): MEASUREMENTS (Male / Female) Normal Values 2D ECHO LV Diastolic Diameter PLAX 4.9 cm 4.2 - 5.9 / 3.9 - 5.3 cm LV Systolic Diameter PLAX 3.8 cm IVS Diastolic Thickness 0.9 cm 0.6 - 1.0 / 0.6 - 0.9 cm LVPW Diastolic Thickness 0.9 cm 0.6 - 1.0 / 0.6 - 0.9 cm LV Relative Wall Thickness 0.4 RV Internal Dim ED PLAX 2.9 cm LV Diastolic Volume MOD BP 61.4 cm??? 67 - 155 / 56 - 104 cm??? LV Systolic Volume MOD BP 38.5 cm??? 22 - 58 / 19 - 49 cm??? LV Ejection Fraction MOD BP 37.4 % >= 55 % LV Cardiac Index MOD BP 1079.4 cm???/min???m??? LV Diastolic Volume MOD 4C 64.3 cm??? LV Systolic Volume MOD 4C 36.2 cm??? LV Ejection Fraction MOD 4C 43.7 % LV Cardiac Index MOD 4C 1322.8 cm???/min???m??? LV Diastolic Length 4C 7.2 cm LV Systolic Length 4C 6.6 cm LV Diastolic Volume MOD 2C 58.7 cm??? LV Systolic Volume MOD 2C 40.9 cm??? LV Ejection Fraction MOD 2C 30.4 % LV Cardiac Index MOD 2C 839.5 cm???/min???m??? LV Diastolic Length 2C 7.2 cm LV Systolic Length 2C 6.6 cm M-MODE Aortic Root Diameter MM 3.5 cm LA Systolic Diameter MM 3.8 cm LA Ao Ratio MM 1.1 AV Cusp Separation MM 2.1 cm DOPPLER Mitral E Point Velocity 52.9 cm/s Mitral A Point Velocity 91.3 cm/s Mitral E to A Ratio 0.6 MV Deceleration Time 268.2 ms MV E' Velocity 4.9 cm/s Mitral E to MV E' Ratio 10.9 TR Peak Velocity 267.4 cm/s TR Peak Gradient 28.6 mmHg Right Ventricular Systolic Press 38.6 mmHg FINDINGS Left Ventricle Left ventricular ejection fraction is estimated at 35-40 %. Moderately decreased left ventricular ejection fraction. Left ventricular cavity size normal. Moderately reduced global left ventricular systolic function. Right Ventricle Severe right ventricular dilatation. Mild pulmonary hypertension. Right Atrium Severe right atrial dilatation. Left Atrium Moderate left atrial dilatation. Mitral Valve Structurally normal mitral valve. Mild mitral regurgitation. No mitral stenosis. Aortic Valve Trileaflet aortic valve. No aortic valve stenosis or regurgitation. Tricuspid Valve Annular dilatation of the tricuspid valve. [id number] tricuspid regurgitation. No tricuspid stenosis. Pulmonic Valve Structurally normal pulmonic valve. Trace pulmonic regurgitation. No pulmonic stenosis. Pericardium No pericardial or pleural effusion. Aorta Aorta at upper limits of normal. CONCLUSIONS LVEF 35 to 40% Globally reduced LV systolic function Severe RV dilatation. Severe RA dilatation. Mild pulmonary hypertension with RVSP 38 mmHg Moderate left atrial dilatation Moderate to severe tricuspid regurgitation, mild mitral regurgitation Previewed by: Dr Jay Ramos (Electronically Signed) Final Date: 10 April 2024 13:01
[2024-04-10] MEDS: methylPREDNISolone SOD SUCCI 40 MG/ML 1 ML VIAL IV SCH (15:46)
[2024-04-10] MEDS ORDERED: AZITHROMYCIN 500 MG in SODIUM CHLORIDE 0.9% 250 ML IVPB SCH (21:00)
[2024-04-11 07:02] LABS: African American GFR (CKD) 61 (>60 ml/min/1.73 sqM); Anion Gap 8 mmol/L; Blood Urea Nitrogen 33 mg/dL (9-20); Calcium 8.8 mg/dL (8.4-10.2); Carbon Dioxide 28 mmol/L (22-30); Chloride 104 mmol/L (98-107); Glucose 149 mg/dL (74-99); Non-African American GFR(CKD) 53 (>60 ml/min/1.73 sqM); Potassium 4.8 mmol/L (3.5-5.1); Sodium 140 mmol/L (137-145)
--- NOTE | 2024-04-11 13:11 | P.PN ---
Subjective Progress Note Date: 04/11/24 Patient is a 79-year-old male with past medical history significant for severe oxygen dependant COPD, normally wears 1 L/min nasal cannula at home, reportedly follows with Dr. Padilla in the pulmonary office. He utilizes a Trelegy maintenance inhaler as well as albuterol nebs as needed. Also, has recent history of incarcerated inguinal hernia status post repair, previous thoracic aortic aneurysm repair, hypertension, hyperlipidemia, chronic kidney disease, among other things. Patient presented the ED yesterday evening complaining of increasing shortness of breath, productive cough with seaman to green phlegm, and subjective fevers. Denies sick contacts, he lives with his [id number], she has been reportedly feeling well. Patient symptoms reportedly started Tuesday, he did call EMS that evening. States his shortness of breath improved after breathing treatment was given and he remained at home. Yesterday, shortness of breath worsened and called EMS again. He is complaining of some right upper quadrant abdominal. Rated 5/10.. States this happened after bending over to p ut his pants on. He is also reporting some constipation. Last normal bowel movement was on Tuesday. Denies nausea, vomiting, hematochezia, melanotic stools. EMS brought him to the emergency department. Chest x-ray done on arrival showing chronic COPD changes with right lung haziness. CBC: WBC count 12, hemoglobin 12.2, hematocrit 38.3, platelets 216. CMP: Sodium 145, potassium 4.6, chloride 105, serum bicarb 28, BUN 31, creatinine 1.63, glucose 110. LFTs unremarkable. Troponin less than 0.012. NT proBNP 1600. EKG: Shows normal sinus rhythm, rate 84 bpm, occasional PACs, incomplete RBBB pattern. No acute ischemic changes. Patient was empirically started on antibiotics in the ED. Patient is being evaluated in the emergency department, room 7. He is on 1 L/min nasal cannula no acute respiratory distress. Sitting up in bed. States his breathing is worse than his baseline, and he cannot "get a full breath in". Has minimal sputum production in bedside container. Seaman/green in color. Has remained afebrile inpatient. Current most recent vitals: Temperature 98.3 F, heart rate 90 bpm, blood pressure 143/83 mmHg, nontachypneic, SpO2 99% on 1 L/min nasal cannula. 04/11/2024, the patient is feeling better, less short of breath compared to yesterday. Less bronchospastic and wheezy. Creatinine is down to 1.3 with a BUN of 33. Sodium levels at 140. Remains on 2 L of oxygen by nasal cannula. Hemodynamically stable. Remains on bronchodilators. Remains on IV Solu-Medrol. Objective - Vital Signs Vital signs: Vital Signs Temp 97.8 F 04/11/24 07:24 Pulse 72 04/11/24 11:28 Resp 19 04/11/24 07:24 BP 179/91 04/11/24 07:24 Pulse Ox 98 04/11/24 07:24 FiO2 Intake & Output 04/10/24 04/11/24 04/11/24 18:59 06:59 18:59 Output Total 1500 Balance -1500 Weight 63.503 kg Output: Urine 1500 - Exam GENERAL EXAM: Alert, 79-year-old male, sitting up in bed, on 1 L/min nasal cannula,, comfortable in no apparent distress. HEAD: Normocephalic and atraumatic EYES: Normal reaction of pupils, equal size. NOSE: Clear with pink turbinates. THROAT: No erythema or exudates. NECK: No masses, no JVD. CHEST: No chest wall deformity. LUNGS: Equal air entry with markedly diminished lung sounds bilaterally th roughout. No crackles, wheeze, rhonchi or dullness. On 1 L/min nasal cannula, SpO2 99%, no conversational dyspnea or accessory muscle use.. CVS: S1 and S2 normal with no audible murmur, regular rhythm. No extra heart sounds ABDOMEN: Flat abdomen, active bowel sounds, no significant guarding or rigidity, no hepatosplenomegaly. SPINE: No scoliosis or deformity SKIN: No rashes CENTRAL NERVOUS SYSTEM: No focal deficits, tone is normal in all 4 extremities. EXTREMITIES: There is bilateral lower extremity 3+ pitting edema. Distal pulses intact and palpable, capillary refill less than 3 seconds, there is digital clubbing - Labs CBC & Chem 7: 04/09/24 18:57 04/11/24 06:18 Labs: Abnormal Lab Results - Last 24 Hours (Table) 04/11/24 Range/Units 06:18 BUN 33 H (9-20) mg/dL Creatinine 1.30 H (0.66-1.25) mg/dL Glucose 149 H (74-99) mg/dL Microbiology - Last 24 Hours (Table) 04/09/24 21:34 Gram Stain - Preliminary Sputum Sputum Culture - Preliminary 04/09/24 20:30 Blood Culture - Preliminary Blood Assessment and Plan Assessment: Acute COPD exacerbation, chest x-ray done on arrival showing chronic COPD changes with subtle right lung haziness, possible right lower lung community- acquired pneumonia. Cardiac silhouette is stable, there is a previous graft of the thoracic aorta and sternotomy wires. Acute on chronic dyspnea, likely secondary to above Very severe chronic obstructive pulmonary disease, with an FEV1 20% of predicted, oxygen dependent at baseline, also uses Trelegy inhaler as well as albuterol nebs as needed Chronic hypoxemic respiratory failure, secondary to above, normally wears 1 L/min nasal cannula at home. Former tobacco smoker, quit in 2021 Bilateral lower extremity edema, takes Lasix and Aldactone on outpatient basis History of incarcerated bilateral inguinal hernia s/p repair Chronic kidney disease stage III, stable renal function History of neurogenic bladder History of thoracic aortic aneurysm/aortic valve repair at [facility] May 2018, Hypertension Hyperlipidemia History of depression Plan: Clinically stable and improving Oxygenation is stable Procalcitonin level is at 0.12 Viral 4 Plex has been negative Start patient on combination of bronchodilators, Symbicort inhaler, and IV Solu- Medrol Add Zithromax 250 mg for the next 5 days Most recent available echocardiogram from December, demonstrates preserved left ventricular ejection fraction and systolic function with grade 1 diastolic dysfunction and moderate to severe tricuspid regurgitation. Will continue to follow
[2024-04-11] MEDS: AZITHROMYCIN 500 MG TAB PO SCH (13:52)
--- NOTE | 2024-04-11 18:39 | P.PN ---
Subjective Progress Note Date: 04/11/24 Patient is a pleasant 79-year-old male with known history of COPD who is 1 L of oxygen quit smoking many years ago came in with complaints of shortness of breath found to be in COPD exacerbation was chest x-ray there is a hazy opacity in the right middle lung brown but his procalcitonin is negative patient was given Rocephin and azithromycin in ER which is being discontinued now patient was also started on systemic steroids inhalational treatments. Patient has a history of chronic diastolic function and is on Lasix Aldactone and low-dose lisinopril. All his heart failure medications are being continued except for Lasix patient appears to be admitted the hypovolemic side. proBNP 600 04/11/2024 Patient is seen in follow-up today with pulmonary following. Patient admitted for COPD exacerbation and maintained on IV steroids along with breathing inhalational treatments. Awaiting PT/OT therapy evaluation as patient reports significant weakness may benefit from rehab as patient has been progressively more weak at home over the last few months. Patient also continues to report significant shortness of breath and is bronchospastic on exam. Patient does have expiratory wheezing noted. Review of systems: Constitutional: No reports of fatigue, fever, or chills Cardiovascular: No reports of chest pain or palpitations Respiratory: reports of shortness of breath and continued cough GI: No reports of nausea, vomiting, or diarrhea : No reports of dysuria or retention Neurovascular: reports of generalized weakness All medications have been reviewed PHYSICAL EXAMINATION: GENERAL: The patient is alert and oriented x3, not in any acute distress. Thin built, elderly appearing, cachectic male HEENT: Pupils are round and equally reacting to light. EOMI. No scleral icterus. No conjunctival pallor. Normocephalic, atraumatic. No pharyngeal erythema. No thyromegaly. CARDIOVASCULAR: S1 and S2 present. No murmurs, rubs, or gallops. PULMONARY: decreased air entry to bilateral lung brown. With expiratory wheezing noted. Bronchospastic significantly on exam ABDOMEN: Soft, thin, nontender, nondistended, normoactive bowel sounds. No palpable organomegaly. MUSCULOSKELETAL: No joint swelling or deformity. EXTREMITIES: No cyanosis, clubbing, or pedal edema. NEUROLOGICAL: Gross neurological examination did not reveal any focal deficits. Diffusely weak SKIN: No rashes. Assessment: -Acute on chronic hypercapnic and hypoxic respiratory failure secondary to COPD exacerbation, will continue with systemic steroids and-treatment my suspicion is low for pneumonia despite of the infiltrate on x-ray I will discontinue Rocephin continue with oral azithromycin -Congestive heart failure chronic systolic dysfunction without any acute exacerbation patient is hypovolemic, hold off on oral Lasix today he can be resumed on Lasix tomorrow continue with Aldactone and lisinopril, 2D echo shows an EF of 35 to 40% -Chronic kidney disease stage IIIb -Hypertension -Hyperlipidemia -Depression -Gait dysfunction with generalized weakness DVT prophylaxis: Low-dose Lovenox subcutaneous GI prophylaxis Full code Plan: Patient is continued on Zithromax to complete the course although suspicion for pneumonia is low. Pulmonary following for acute COPD exacerbation with acute on chronic hypoxic respiratory failure Patient did undergo 2D echo with an EF of 35 to 40%, not in heart failure exacerbation and will follow-up with repeat labs and possibly resume home oral Lasix Awaiting PT/OT therapy evaluation for significant weakness as patient may benefit from ECF Case management consulted working on discharge planning. Apparently patient reports did have [employer] Medicaid as well as Medicare and feels he may have let the Medicaid lapse. Patient to follow-up with family who has his insurance cards to verify. Patient will require 3 night hospitalization according to Medicare guidelines. Encourage increase activity as tolerated The impression and plan of care has been dictated by Natividad Zavala, Nurse Practitioner as directed. Dr. Roni MD I have performed a history and examination and MDM of this patient, discussed the same with the dictator, and agree with the dictator's assessment and plan as written ,documented as a scribe. Based on total visit time, I have performed more than 50% of the visit. Objective - Vital Signs Vital signs: Vital Signs Temp 97.8 F 04/11/24 07:24 Pulse 73 04/11/24 08:04 Resp 19 04/11/24 07:24 BP 179/91 04/11/24 07:24 Pulse Ox 98 04/11/24 07:24 FiO2 Intake & Output 04/10/24 04/11/24 04/11/24 18:59 06:59 18:59 Output Total 1500 Balance -1500 Output: Urine 1500 - Labs CBC & Chem 7: 04/09/24 18:57 04/11/24 06:18 Labs: Abnormal Lab Results - Last 24 Hours (Table) 04/11/24 Range/Units 06:18 BUN 33 H (9-20) mg/dL Creatinine 1.30 H (0.66-1.25) mg/dL Glucose 149 H (74-99) mg/dL Microbiology - Last 24 Hours (Table) 04/09/24 20:30 Blood Culture - Preliminary Blood 04/09/24 21:34 Gram Stain - Preliminary Sputum
[2024-04-11] MEDS ORDERED: SENNOSIDES 8.6 MG TAB PO PRN (20:26)
[2024-04-11] MEDS: polyethylene glycoL 3350 17 GM POWD.PACK PO SCH (21:12)
[2024-04-11] MEDS: LACTULOSE 20 GM/30 ML CUP PO ONE (21:12)
[2024-04-12 05:38] LABS: African American GFR (CKD) 60 (>60 ml/min/1.73 sqM); Anion Gap 5 mmol/L; Blood Urea Nitrogen 38 mg/dL (9-20); Calcium 8.6 mg/dL (8.4-10.2); Carbon Dioxide 30 mmol/L (22-30); Chloride 103 mmol/L (98-107); Glucose 126 mg/dL (74-99); Non-African American GFR(CKD) 52 (>60 ml/min/1.73 sqM); Sodium 138 mmol/L (137-145)
[2024-04-12 08:05] VITALS: BP 152/82; RESP 17; TEMP 97.8
[2024-04-12 13:26] VITALS: PULSE 82
--- NOTE | 2024-04-12 14:06 | P.PN ---
Subjective Progress Note Date: 04/12/24 Patient is a 79-year-old male with past medical history significant for severe oxygen dependant COPD, normally wears 1 L/min nasal cannula at home, reportedly follows with Dr. Padilla in the pulmonary office. He utilizes a Trelegy maintenance inhaler as well as albuterol nebs as needed. Also, has recent history of incarcerated inguinal hernia status post repair, previous thoracic aortic aneurysm repair, hypertension, hyperlipidemia, chronic kidney disease, among other things. Patient presented the ED yesterday evening complaining of increasing shortness of breath, productive cough with seaman to green phlegm, and subjective fevers. Denies sick contacts, he lives with his [id number], she has been reportedly feeling well. Patient symptoms reportedly started Tuesday, he did call EMS that evening. States his shortness of breath improved after breathing treatment was given and he remained at home. Yesterday, shortness of breath worsened and called EMS again. He is complaining of some right upper quadrant abdominal. Rated 5/10.. States this happened after bending over to p ut his pants on. He is also reporting some constipation. Last normal bowel movement was on Tuesday. Denies nausea, vomiting, hematochezia, melanotic stools. EMS brought him to the emergency department. Chest x-ray done on arrival showing chronic COPD changes with right lung haziness. CBC: WBC count 12, hemoglobin 12.2, hematocrit 38.3, platelets 216. CMP: Sodium 145, potassium 4.6, chloride 105, serum bicarb 28, BUN 31, creatinine 1.63, glucose 110. LFTs unremarkable. Troponin less than 0.012. NT proBNP 1600. EKG: Shows normal sinus rhythm, rate 84 bpm, occasional PACs, incomplete RBBB pattern. No acute ischemic changes. Patient was empirically started on antibiotics in the ED. Patient is being evaluated in the emergency department, room 7. He is on 1 L/min nasal cannula no acute respiratory distress. Sitting up in bed. States his breathing is worse than his baseline, and he cannot "get a full breath in". Has minimal sputum production in bedside container. Seaman/green in color. Has remained afebrile inpatient. Current most recent vitals: Temperature 98.3 F, heart rate 90 bpm, blood pressure 143/83 mmHg, nontachypneic, SpO2 99% on 1 L/min nasal cannula. 04/11/2024, the patient is feeling better, less short of breath compared to yesterday. Less bronchospastic and wheezy. Creatinine is down to 1.3 with a BUN of 33. Sodium levels at 140. Remains on 2 L of oxygen by nasal cannula. Hemodynamically stable. Remains on bronchodilators. Remains on IV Solu-Medrol. 04/12/2024, the patient is being seen for a follow-up. Overall condition is stable. Continues to improve. No new complaints for now. Remains on bronchodilators. Remains on steroids. Labs from today shows a sodium level of 138, potassium is at 5, BUN 38 with a creatinine of 1.32. The patient on Zithromax as an empiric antibiotic coverage. The patient on Symbicort and DuoNeb updrafts in addition to IV Solu-Medrol. Objective - Vital Signs Vital signs: Vital Signs Temp 97.8 F 04/12/24 08:00 Pulse 85 04/12/24 09:36 Resp 17 04/12/24 08:00 BP 152/82 04/12/24 08:00 Pulse Ox 98 04/12/24 08:00 FiO2 Intake & Output 04/11/24 04/12/24 04/12/24 18:59 06:59 18:59 Output Total 725 500 Balance -725 -500 Output: Urine 725 500 Other: Voiding Method Toilet - Exam GENERAL EXAM: Alert, 79-year-old male, sitting up in bed, on 1 L/min nasal cannula,, comfortable in no apparent distress. HEAD: Normocephalic and atraumatic EYES: Normal reaction of pupils, equal size. NOSE: Clear with pink turbinates. THROAT: No erythema or exudates. NECK: No masses, no JVD. CHEST: No chest wall deformity. LUNGS: Equal air entry with markedly diminished lung sounds bilaterally throughout. No crackles, wheeze, rhonchi or dullness. On 1 L/min nasal cannula, SpO2 99%, no conversational dyspnea or accessory muscle use.. CVS: S1 and S2 normal with no audible murmur, regular rhythm. No extra heart sounds ABDOMEN: Flat abdomen, active bowel sounds, no significant guarding or rigidity, no hepatosplenomegaly. SPINE: No scoliosis or deformity SKIN: No rashes CENTRAL NERVOUS SYSTEM: No focal deficits, tone is normal in all 4 extremities. EXTREMITIES: There is bilateral lower extremity 3+ pitting edema. Distal pulses intact and palpable, capillary refill less than 3 seconds, there is digital clubbing - Labs CBC & Chem 7: 04/09/24 18:57 04/12/24 04:04 Labs: Abnormal Lab Results - Last 24 Hours (Table) 04/12/24 Range/Units 04:04 BUN 38 H (9-20) mg/dL Creatinine 1.32 H (0.66-1.25) mg/dL Glucose 126 H (74-99) mg/dL Microbiology - Last 24 Hours (Table) 04/09/24 20:30 Blood Culture - Preliminary Blood 04/09/24 21:34 Gram Stain - Preliminary Sputum Sputum Culture - Preliminary Assessment and Plan Assessment: Acute COPD exacerbation, chest x-ray done on arrival showing chronic COPD changes with subtle right lung haziness, possible right lower lung community- acquired pneumonia. Cardiac silhouette is stable, there is a previous graft of the thoracic aorta and sternotomy wires. Acute on chronic dyspnea, likely secondary to above Very severe chronic obstructive pulmonary disease, with an FEV1 20% of predicted, oxygen dependent at baseline, also uses Trelegy inhaler as well as albuterol nebs as needed Chronic hypoxemic respiratory failure, secondary to above, normally wears 1 L/min nasal cannula at home. Former tobacco smoker, quit in 2021 Bilateral lower extremity edema, takes Lasix and Aldactone on outpatient basis History of incarcerated bilateral inguinal hernia s/p repair Chronic kidney disease stage III, stable renal function History of neurogenic bladder History of thoracic aortic aneurysm/aortic valve repair at [facility] May 2018, Hypertension Hyperlipidemia History of depression Plan: Clinically stable and improving Oxygenation is stable Procalcitonin level is at 0.12 Viral 4 Plex has been negative continue bronchodilators, Symbicort inhaler, and IV Solu-Medrol Zithromax 500 mg on a daily basis IV Solu-Medrol Most recent available echocardiogram from December, demonstrates preserved left ventricular ejection fraction and systolic function with grade 1 diastolic dysfunction and moderate to severe tricuspid regurgitation. Will continue to follow and will continue same treatment for now. No new complaints. Possible discharge to rehab
--- NOTE | 2024-04-12 14:21 | P.DS ---
Providers Date of admission: 04/09/24 20:11 Expected date of discharge: 04/12/24 Attending physician: Agus Solano Consults: 04/09/24 20:09 Consult Physician Routine Consulting Provider: Hannah Padilla Consult Reason/Comments: copd Do you want consulting provider notified?: Yes Primary care physician: Yadira Murcia Hospital Course: Final diagnosis -Acute on chronic hypercapnic and hypoxic respiratory failure secondary to COPD exacerbation -Acute community-acquired pneumonia, present on admission -Congestive heart failure chronic systolic dysfunction without any acute ex acerbation patient is hypovolemic, 2D echo shows an EF of 35 to 40% -Chronic kidney disease stage IIIb -Hypertension -Hyperlipidemia -Depression -Gait dysfunction with generalized weakness DVT prophylaxis GI prophylaxis Full code Discharge disposition Patient is being discharged in a stable condition with guarded prognosis to [facility]. Patient will follow-up with in the outpatient setting upon discharge. Patient is to continue with oral doxycycline twice daily for 1 week along with a prednisone taper and outpatient follow-up with pulmonary as scheduled. Total time taken is greater than 35 minutes. Hospital course This is a 79-year-old male who was recently admitted with increasing shortness of breath with acute on chronic hypoxic respiratory failure secondary to COPD exacerbation. Patient also with cough and chest congestion with phlegm production with concerns of mild community-acquired pneumonia. Procalcitonin is 0.12 and virology testing was negative. Sputum showing presumptive Staph aureus. Patient was maintained on Zithromax and had received ceftriaxone and will transition to oral doxycycline for 1 week on discharge. Patient maintained on [id number] DuoNebs along with IV steroids and will transition to prednisone taper and recommend close outpatient follow-up with pulmonary. Patient with significant weakness has been progressively becoming more weak over the last few months and evaluated by physical therapy recommending rehab and patient is agreeable. Patient has been accepted by [facility] and authorization has been obtained. Please refer to other consultation notes for further HPI. Patient has been resumed on oral Lasix 20 mg daily and recommend repeat CBC, CMP, magnesium in 2 to 3 days. Currently no reports of chest pain, no worsening shortness of breath, or palpitations. Patient is afebrile. No reports of nausea or vomiting and patient is tolerating diet. Patient will be discharged to [facility] today. Physical exam: Gen: This is a 79-year-old male who is awake, alert and oriented x 3, thin build, elderly appearing, ill-appearing HEENT: Head is atraumatic, normocephalic. Pupils equal, round. Sclerae is anicteric. NECK: Supple. No JVD. No lymphadenopathy. No thyromegaly. LUNGS: Diminished breath sounds bilaterally with some faint expiratory wheezes and coarse rhonchi. No intercostal retractions. HEART: S1, S2 are muffled ABDOMEN: Soft. Thin. Bowel sounds are present. No masses. No tenderness. EXTREMITIES: No pedal edema. No calf tenderness. NEUROLOGICAL: Patient is awake, alert and oriented x3. Cranial nerves 2 through 12 are grossly intact. Diffusely weak Please refer to medication reconciliation sheet for a list of medications. The impression and plan of care has been dictated by Natividad Zavala, Nurse Practitioner as directed. Dr. Roni MD I have performed a history and examination and MDM of this patient, discussed the same with the dictator, and agree with the dictator's assessment and plan as written ,documented as a scribe. Based on total visit time, I have performed more than 50% of the visit. Patient Condition at Discharge: Fair Plan - Discharge Summary Discharge Rx Participant: No New Discharge Prescriptions: New polyethylene glycoL 3350 [Miralax] 17 gm PO HS packet Budesonide-Formot 160-4.5 Mcg [Symbicort 160-4.5 Mcg Inhaler] 2 puff INHALATION RT-BID each Doxycycline [Vibramycin] 100 mg PO BID 7 Days #14 capsule Ipratropium-Albuterol Nebulize [Duoneb 0.5 mg-3 mg/3 ml Soln] 3 ml INHALATION RT-QID each Ipratropium-Albuterol Nebulize [Duoneb 0.5 mg-3 mg/3 ml Soln] 3 ml INHALATION RT-Q4H PRN each PRN Reason: Shortness Of Breath Or Wheezing Sennosides [Senokot] 8.6 mg PO BID PRN tab PRN Reason: Constipation predniSONE See Taper PO DIRECTED #30 tab Continue Multivit-Mins/Iron/Folic/Lycop [Centrum Men's Tablet] 1 tab PO DAILY Ferrous Sulfate [Iron (65 MG Elemental)] 325 mg PO DAILY Spironolactone [Aldactone] 12.5 mg PO DAILY Fluticasone/Umeclidin/Vilanter [Trelegy Ellipta 100-62.5-25] 1 puff INHALATION RT-DAILY Aspirin EC [Ecotrin Low Dose] 81 mg PO DAILY Metoprolol Succinate (ER) [Toprol XL] 25 mg PO DAILY #30 Ascorbic Acid [Vitamin C] 500 mg PO DAILY Thiamine [Vitamin B-1] 100 mg PO DAILY Changed lisinopriL [Zestril] 5 mg PO DAILY #0 Furosemide [Lasix] 20 mg PO DAILY #0 Discharge Medication List Aspirin EC [Ecotrin Low Dose] 81 mg PO DAILY 12/06/22 [History] Multivit-Mins/Iron/Folic/Lycop [Centrum Men's Tablet] 1 tab PO DAILY 12/06/22 [History] Metoprolol Succinate (ER) [Toprol XL] 25 mg PO DAILY #30 12/31/22 [Rx] Ascorbic Acid [Vitamin C] 500 mg PO DAILY 05/28/23 [History] Ferrous Sulfate [Iron (65 MG Elemental)] 325 mg PO DAILY 05/28/23 [History] Spironolactone [Aldactone] 12.5 mg PO DAILY 05/28/23 [History] Fluticasone/Umeclidin/Vilanter [Trelegy Ellipta 100-62.5-25] 1 puff INHALATION RT-DAILY 04/09/24 [History] Thiamine [Vitamin B-1] 100 mg PO DAILY 04/09/24 [History] Budesonide-Formot 160-4.5 Mcg [Symbicort 160-4.5 Mcg Inhaler] 2 puff INHALATION RT-BID each 04/12/24 [Rx] Doxycycline [Vibramycin] 100 mg PO BID 7 Days #14 capsule 04/12/24 [Rx] Furosemide [Lasix] 20 mg PO DAILY #0 04/12/24 [Rx] Ipratropium-Albuterol Nebulize [Duoneb 0.5 mg-3 mg/3 ml Soln] 3 ml INHALATION RT-Q4H PRN each 04/12/24 [Rx] Ipratropium-Albuterol Nebulize [Duoneb 0.5 mg-3 mg/3 ml Soln] 3 ml INHALATION RT-QID each 04/12/24 [Rx] Sennosides [Senokot] 8.6 mg PO BID PRN tab 04/12/24 [Rx] lisinopriL [Zestril] 5 mg PO DAILY #0 04/12/24 [Rx] polyethylene glycoL 3350 [Miralax] 17 gm PO HS packet 04/12/24 [Rx] predniSONE See Taper PO DIRECTED #30 tab 04/12/24 [Rx] Follow up Appointment(s)/Referral(s): Yadira Murcia MD [Primary Care Provider] - 1-2 days Hannah Padilla MD [STAFF PHYSICIAN] - 1 Week Activity/Diet/Wound Care/Special Instructions: Patient is going to Vaultize Activity as tolerated Follow-up with pulmonary outpatient Follow-up with primary care provider outpatient Continue on doxycycline for 7 days Continue with oral steroid taper Continue as needed as well as scheduled bowel regimen Discharge Disposition: TRANSFER TO SNF/ECF
== END 2024-04-12 15:55 | DRG 193 ==
LOC: EC 18:38 → 4SSUR 20:11 → 1SOBS 04-10 09:33
PROVIDERS: ADMIT Internal Medicine Geriatric Medicine; ATTEND Internal Medicine Geriatric Medicine
DX: J18.9 Pneumonia, unspecified organism (principal); J96.21 Acute and chronic respiratory failure with hypoxia; J96.22 Acute and chronic respiratory failure with hypercapnia; J44.0 Chronic obstructive pulmonary disease with (acute) lower respiratory infection; I50.42 Chronic combined systolic (congestive) and diastolic (congestive) heart failure; I13.0 Hypertensive heart and chronic kidney disease with heart failure and stage 1 through stage 4 chronic kidney disease, or unspecified chronic kidney disease; J44.1 Chronic obstructive pulmonary disease with (acute) exacerbation; N18.32 Chronic kidney disease, stage 3b; E78.5 Hyperlipidemia, unspecified; F32.A Depression, unspecified; Z99.81 Dependence on supplemental oxygen; Z11.52 Encounter for screening for COVID-19; N31.9 Neuromuscular dysfunction of bladder, unspecified; E86.1 Hypovolemia; I08.1 Rheumatic disorders of both mitral and tricuspid valves; F41.9 Anxiety disorder, unspecified; D50.9 Iron deficiency anemia, unspecified; I45.10 Unspecified right bundle-branch block; K59.00 Constipation, unspecified; X50.1XXA Overexertion from prolonged static or awkward postures, initial encounter; Z79.52 Long term (current) use of systemic steroids; Z79.82 Long term (current) use of aspirin; Z79.899 Other long term (current) drug therapy; Z87.891 Personal history of nicotine dependence; Z86.16 Personal history of COVID-19; Z79.51 Long term (current) use of inhaled steroids
CPT/HCPCS: 36415; 71045; 80048; 80053; 83735; 83880; 84145; 84484; 85025; 85610; 85730; 87040; 87070; 87077; 87186; 87205; 87636; 93005; 93306; 94640; 96361; 96365; 96366; 96367; 96368; 96375; 99285